=== PATIENT | male | born 1945 | race Caucasian/White ===

== ENCOUNTER → 2019-07-05 11:26 | Outpatient (CLI) | payer OTHER, SELFPAY ==
[2019-07-05 12:00] LABS: INR 2.6 (0.9-1.3)
== END ==
PROVIDERS: PCP Student in an Organized Health Care Education/Training Program; Visit Provider Student in an Organized Health Care Education/Training Program
DX: I48.91 Unspecified atrial fibrillation (principal); Z51.81 Encounter for therapeutic drug level monitoring; Z79.01 Long term (current) use of anticoagulants
CPT/HCPCS: 36415; 85610

== ENCOUNTER 2019-07-08 10:13 | Day surgery (SDC) | payer OTHER, SELFPAY ==
[2019-07-08 12:02] VITALS: BP 160/90; PULSE 81; RESP 16; TEMP 36.5; O2SAT 96; BMI 22.7
[2019-07-08] MEDS: PROPARACAINE 0.5% OPHTH SOL 2 DROPS EYE-OP ×2 (12:18→12:45)
[2019-07-08] MEDS: CATARACT EYE COMPOUND (10 DROPS/SYRINGE) 3 DROPS EYE-OP ×2 (12:20→12:46)
--- NOTE | 2019-07-08 12:55 | PM.PREOP ---
Pre-operative Note Interval Note History & Physical reviewed/Exam performed by Physician: No Changes to H&P: No
--- NOTE | 2019-07-08 12:55 | PM.OP.1 ---
Operative Date/Time/Diagnoses Pre-op diagnosis: Nuclear cataract right eye Procedure & Clinicians Procedure: Cataract Surgery Same procedure as scheduled: Yes Surgeon: Rey Lua Anesthesia Type: MAC +/- and Sedation Operative Notes Procedure in detail: Patient brought to the operating suite. Tetracaine drops placed in the right eye. The marking instrument was used to sophie the vertical and horizontal meridians. Patient was prepped and draped in sterile manner. Wire lid speculum was placed in the eye. The marking instrument was used to sophie the 170 degree meridian. Betadine drops were placed on the eye. This was irrigated. Lidocaine jelly was placed on the eye. A paracentesis port was created with a side-port blade. 0.1 mL 1% preservative free lidocaine was injected into the anterior chamber. The anterior chamber was deepened with viscoelastic. 2.6 mm keratome was used to create a temporal clear corneal incision. Cystotome and Utrata forceps were used to create continuous tear capsulorrhexis. Balanced salt solution was used to hydro dissect the nucleus. The phacoemulsification handpiece was inserted and the nucleus was removed using the stop and chop technique. The nucleous was very dense. The irrigation aspiration handpiece was inserted and the remaining cortex was removed. Anterior chamber was deepened with viscoelastic. An Duncan FLD072 intraocular lens with a power of 20.5 was injected into the capsular bag. Irrigation aspiration handpiece was inserted and the remaining viscoelastic was removed. The lens was rotated to the 170 degree meridian. Incision was hydrated with balanced salt solution and found to be leak free with pressure with Weck-Priya sponges. 0.1 mL Vigamox injected anterior chamber. 0.3 mL Kenalog 10 mg was injected subconjunctivally. Lid speculum was removed. The patient left the operating room in excellent condition. Complications: none Post-operative Condition: stable Disposition: same day surgery
[2019-07-08] MEDS: PHENYLEPHRINE/LIDOCAINE VIAL (OR) 0.2 ML EYE-OP (13:13)
[2019-07-08] MEDS: MOXIFLOXACIN INJ 5 MG/ML VIAL EYE-OP (13:13)
[2019-07-08] MEDS: TRIAMCINOLONE 50 MG/5 ML VIAL INJ (13:14)
[2019-07-08] MEDS: CHONDROIDTIN/SOD HYALURONATE 1.05 ML SYRINGE INTRAOCULA (13:14)
[2019-07-08] MEDS: TETRACAINE 0.5% OPHTH DROPS 4 ML 2 DROPS EYE-OP (13:14)
[2019-07-08] MEDS: LIDOCAINE JELLY 2% 5 ML 1 APPLIC TOP (13:14)
[2019-07-08] MEDS: BALANCED SALT IRRIG SOLN NO.2 500 ML, EPINEPHrine 1 MG IRR (13:15)
[2019-07-08 13:30] VITALS: BP 151/104; PULSE 94; RESP 20; TEMP 36.6; O2SAT 99
--- NOTE | 2019-07-08 14:53 | SUR.PHASEII ---
Dr. Cook notified bp 151/104, ok for pt to discharge and take home bp meds per MD.
== END 2019-07-08 13:45 | disposition home or self-care (01) ==
LOC: OR 10:14
PROVIDERS: PCP Student in an Organized Health Care Education/Training Program; Visit Provider Ophthalmology
PROC: (CPT 66984; principal; 2019-07-08 13:15)
DX: H25.11 Age-related nuclear cataract, right eye (principal); J44.9 Chronic obstructive pulmonary disease, unspecified; I10 Essential (primary) hypertension
CPT/HCPCS: 66984; J0171; J2250; J3010; J3301; V2787

== ENCOUNTER 2019-07-28 09:59 | Emergency (ER) | payer OTHER, SELFPAY ==
[2019-07-28 10:06] VITALS: BP 159/132; PULSE 78; RESP 20; TEMP 37; O2SAT 97; BMI 23.3
--- NOTE | 2019-07-28 10:10 | DI.RAD.S_ITS ---
PROCEDURE: XR CHEST 2V INDICATIONS: shortness of breath TECHNIQUE: 2 views of the chest were acquired. COMPARISON: [facility], , CHEST 2 VIEW, 04/14/2016, 10:41. FINDINGS: Surgical changes and devices: None. Lungs and pleura: Lungs are hyperinflated in keeping with chronic obstructive physiology. No pleural effusions or pneumothorax. Scattered subsegmental atelectasis and/or scarring. No focal consolidation, however there are faint hazy opacities raise the possibility of pulmonary edema. Suspected Carolyne B-lines project in the right lung base Mediastinum: Mediastinal contours are normal. Heart size is normal. Bones and chest wall: No suspicious bony abnormalities. Soft tissues appear unremarkable. IMPRESSION: Scattered subsegmental atelectasis/scarring. No acute consolidation however increased diffuse hazy groundglass opacities suspicious for mild/developing pulmonary edema. Please correlate clinically. If there is persistent clinical diagnostic uncertainty, continued surveillance with short interval chest radiographs after treatment is recommended. Hyperinflated lungs in keeping with chronic obstructive physiology. Dictated by: Israel Fajardo M.D. on 07/28/2019 at 11:27 Approved by: Israel Fajardo M.D. on 07/28/2019 at 11:32
--- NOTE | 2019-07-28 10:25 | ED.SOB ---
HPI - SOB/Dyspnea General Chief Complaint: Shortness of Breath/Dyspnea Stated Complaint: SOB Time Seen by Provider: 07/28/19 10:10 Source: patient and family Mode of arrival: Wheelchair Limitations: no limitations History of Present Illness HPI Narrative: Patient is a 74-year-old male with history of COPD and atrial fibrillation who presents with increasing shortness of breath with exertion. It has been ongoing 3 or 4 days progressively getting worse. He denies any chest pain or cough. He denies any orthopnea he does have some lower extremity edema which he says is new. It also take some quite a while to recover after walking. MD Complaint: shortness of breath Consistency/Duration: constant Relieving factors: nothing Exacerbating factors: exertion Related Data Home Medications Medication Instructions Recorded Confirmed lisinopril 10 mg PO BID 07/28/19 07/28/19 metoprolol succinate 100 mg PO BID 07/28/19 07/28/19 warfarin 2.5 mg PO DAILY 07/28/19 07/28/19 Previous Rx's Medication Instructions Recorded albuterol sulfate 2 puff INHALATION Q6H PRN #8.5 gram 07/28/19 furosemide [Lasix] 20 mg PO QAM #3 tab 07/28/19 prednisone 40 mg PO DAILY #10 tab 07/28/19 Allergies Allergy/AdvReac Type Severity Reaction Status Date / Time No Known Drug Allergies Allergy Verified 07/08/19 11:56 Review of Systems Review of Systems Narrative: GENERAL: Denies chills, fatigue, malaise, fever, sweats, travel HEENT: Denies sinus pain, ear pain, sore throat, difficulty swallowing, neck pain RESPIRATORY: See HPI CARDIOVASCULAR: Denies chest pain, palpitations, orthopnea, edema GASTROINTESTINAL: Denies nausea, vomiting, abdominal pain, diarrhea, constipation, melena. : Denies dysuria, frequency, incontinence, hematuria, urinary retention, flank pain. MUSCULOSKELETAL: Denies weakness, joint pain, or bony pain SKIN: No rash, no erythema, no pruritus NEUROLOGIC: Denies weakness, dizziness, headache, numbness, change in speech, confusion PSYCHIATRIC: No concerning psychosocial issues. 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) Atrial fibrillation (04/24/16) Essential hypertension (11/01/17) Pure hypercholesterolemia (04/24/16) Systolic congestive heart failure (04/24/16) Social History household members: none Smoking Status: Former smoker Social History household members: none Smoking Status: Former smoker Exam Initial Vital Signs Initial Vital Signs: Vital Signs Temperature 98.6 F 07/28/19 10:06 Pulse Rate 78 07/28/19 10:06 Respiratory Rate 20 07/28/19 10:06 Blood Pressure 159/132 H 07/28/19 10:06 Pulse Oximetry 97 07/28/19 10:06 GENERAL: Alert male no acute distress HEENT: Head atraumatic,EOMI, pupils reactive, face symmetric, moist mucous membranes CARDIOVASCULAR: Regular rate and rhythm without murmurs, rubs or gallops. RESPIRATORY: Decreased breath sounds at bases wheezes rales or rhonchi speaks in full sentences no difficulty ABDOMEN: Soft, nontender. Normoactive bowel sounds all 4 quadrants. No guarding or rebound. EXTREMITIES: Normal range of motion, no clubbing or edema. Neurovascularly intact NEUROLOGICAL: Alert and oriented x4.Normal gait and speech. Cranial nerves II through XII grossly intact. SKIN: Warm, dry, no laceration, no petechiae, no rashes or lesions. Course Orders Ordered: ED Orders 07/28/19 10:04 EKG-12 Lead Stat 07/28/19 10:10 XR chest 2V Stat Measure peak expiratory flow ONCE RT Consult Eval and Treat Now 07/28/19 10:19 B Type Natriuretic Peptide Stat Complete Blood Count AUTO DIFF Stat Comprehensive Metabolic Panel Stat Lactate (Lactic Acid) Stat Partial Thromboplastin Time Stat Prothrombin Time INR Stat Troponin & CK Cardiac Panel Stat Discontinued Medications Albuterol (Ventolin) 2.5 mg INH NOW ONE Stop: 07/28/19 10:59 Last Admin: 07/28/19 11:08 Dose: 2.5 mg Documented by: AMBER Furosemide (Lasix) 40 mg IV NOW ONE Stop: 07/28/19 11:01 Last Admin: 07/28/19 11:22 Dose: 40 mg Documented by: AMBER Methylprednisolone (Solu-Medrol 125 Mg Vial) 125 mg IV NOW ONE Stop: 07/28/19 11:49 Last Admin: 07/28/19 12:16 Dose: 125 mg Documented by: AMBER Vital Signs Vital signs: Vital Signs - 8 hr 07/28/19 11:08 07/28/19 12:36 Pulse Rate 87 83 Respiratory Rate 22 16 Blood Pressure [Left Arm] 155/104 H Pulse Oximetry 99 100 MDM - SOB/Dyspnea Lab Data Attestation: I reviewed the patient's lab results. Result diagrams: 07/28/19 10:19 07/28/19 10:19 Labs: Lab Results 07/28/19 07/28/19 07/28/19 Range/Units 10: 10: 10:19 WBC 6.7 (4.5-11.0) X10^3/uL RBC 4.88 (4.5-5.9) X10^6/uL Hgb 14.9 (13.5-17.5) g/dL Hct 44.7 (41-53) % MCV 91.6 (80-100) fL MCH 30.6 (26-34) PG MCHC 33.4 (30-36) % RDW 14.0 (11.6-14.8) % Plt Count 213 (150-400) X10^3/uL Neut % (Auto) 70.3 (50-75) % Lymph % (Auto) 20.3 L (25-40) % Vilas % (Auto) 8.0 (3-14) % Eos % (Auto) 0.6 L (2-4) % Baso % (Auto) 0.8 (0-2) % Neut # (Auto) 4800 (2862-5349) /uL Lymph # (Auto) 1400 (5885-6078) /uL Vilas # (Auto) 500 (0-900) /uL Eos # (Auto) 0 (0-450) /uL Baso # (Auto) 100 (0-100) /uL PT (10.1-12.7) SECONDS INR (0.9-1.3) APTT (26.4-36.2) SECONDS Sodium 138 (137-145) mmol/L Potassium 4.2 (3.4-5.1) mmol/L Chloride 98 (98-107) mmol/L Carbon Dioxide 30 (22-32) mmol/L BUN 10 (9-20) mg/dL Creatinine 0.90 (0.66-1.25) mg/dL Estimated GFR > 60.0 (>60) mL/min BUN/Creatinine Ratio 11.1 (6-22) Glucose 107 (80-110) mg/dL Lactate 1.4 (0.7-2.1) mmol/L Calcium 9.3 (8.4-10.2) mg/dL Total Bilirubin 1.2 (0.2-1.3) mg/dL AST 56 (17-59) IU/L ALT 44 (21-72) IU/L Alkaline Phosphatase 88 (38-126) U/L Total Creatine Kinase (55-170) U/L CK-MB (CK-2) CK-MB (CK-2) Rel Index Troponin I (0.01-0.034) ng/mL B-Natriuretic Peptide (<100) Total Protein 7.1 (6.3-8.2) g/dL Albumin 4.3 (3.5-5.0) g/dL Globulin 2.8 (1.7-4.1) g/dL Albumin/Globulin Ratio 1.5 (1.0-2.8) 07/28/19 07/28/19 07/28/19 Range/Units 10:19 10:19 10:19 WBC (4.5-11.0) X10^3/uL RBC (4.5-5.9) X10^6/uL Hgb (13.5-17.5) g/dL Hct (41-53) % MCV (80-100) fL MCH (26-34) PG MCHC (30-36) % RDW (11.6-14.8) % Plt Count (150-400) X10^3/uL Neut % (Auto) (50-75) % Lymph % (Auto) (25-40) % Vilas % (Auto) (3-14) % Eos % (Auto) (2-4) % Baso % (Auto) (0-2) % Neut # (Auto) (9436-7799) /uL Lymph # (Auto) (2408-8721) /uL Vilas # (Auto) (0-900) /uL Eos # (Auto) (0-450) /uL Baso # (Auto) (0-100) /uL PT 39.5 H (10.1-12.7) SECONDS INR 3.4 H (0.9-1.3) APTT 49 H (26.4-36.2) SECONDS Sodium (137-145) mmol/L Potassium (3.4-5.1) mmol/L Chloride (98-107) mmol/L Carbon Dioxide (22-32) mmol/L BUN (9-20) mg/dL Creatinine (0.66-1.25) mg/dL Estimated GFR (>60) mL/min BUN/Creatinine Ratio (6-22) Glucose (80-110) mg/dL Lactate (0.7-2.1) mmol/L Calcium (8.4-10.2) mg/dL Total Bilirubin (0.2-1.3) mg/dL AST (17-59) IU/L ALT (21-72) IU/L Alkaline Phosphatase (38-126) U/L Total Creatine Kinase 79 (55-170) U/L CK-MB (CK-2) TNP CK-MB (CK-2) Rel Index TNP Troponin I < 0.012 (0.01-0.034) ng/mL B-Natriuretic Peptide 1230 H (<100) Total Protein (6.3-8.2) g/dL Albumin (3.5-5.0) g/dL Globulin (1.7-4.1) g/dL Albumin/Globulin Ratio (1.0-2.8) Imaging Data Chest x-ray: Radiologist's impression: PROCEDURE: XR CHEST 2V INDICATIONS: shortness of breath TECHNIQUE: 2 views of the chest were acquired. COMPARISON: [facility], CHEST 2 VIEW, 04/14/2016, 10:41. FINDINGS: Surgical changes and devices: None. Lungs and pleura: Lungs are hyperinflated in keeping with chronic obstructive physiology. No pleural effusions or pneumothorax. Scattered subsegmental atelectasis and/or scarring. No focal consolidation, however there are faint hazy opacities raise the possibility of pulmonary edema. Suspected Carolyne B-lines project in the right lung base Mediastinum: Mediastinal contours are normal. Heart size is normal. Bones and chest wall: No suspicious bony abnormalities. Soft tissues appear unremarkable. IMPRESSION: Scattered subsegmental atelectasis/scarring. No acute consolidation however increased diffuse hazy groundglass opacities suspicious for mild/developing pulmonary edema. Please correlate clinically. If there is persistent clinical diagnostic uncertainty, continued surveillance with short interval chest radiographs after treatment is recommended. Hyperinflated lungs in keeping with chronic obstructive physiology. Dictated by: Israel Fajardo M.D. on 07/28/2019 at 11:27 ECG Data Attestation: I personally reviewed and interpreted this ECG as follows: Prior ECG tracings: available for review Interpretation: Atrial fibrillation rate 84 similar to previous EKG MDM Narrative Medical decision making narrative: Patient denies any history of congestive heart failure however it is listed in his history. His BNP of 1200 no significant pulmonary edema on his x-ray. He actually felt much better after a DuoNeb. He was able walk to the restroom and back without any difficulty both he and daughter noted significant improvement. His O2 sat is within normal limits. He has urinated at least 3 times after the Lasix. At this time he has an appointment with his PCP later this week will treat him for both COPD and CHF as an outpatient. Given a few days of Lasix and a steroid burst. At this time he is afebrile no leukocytosis negative procalcitonin I do not believe him to need antibiotics at this time. INR is therapeutic and has 2 other reasons to be short of breath at this time I do not suspect any pulmonary embolism. Discharge Plan Departure Patient Disposition: Home Clinical Impression: COPD exacerbation CHF (congestive heart failure) Qualifiers: Heart failure type: unspecified Heart failure chronicity: acute Qualified Code(s): I50.9 - Heart failure, unspecified Discharge Date/Time: 07/28/19 12:37 Instructions: Chronic Obstructive Pulmonary Disease, Heart Failure Activity Restrictions/Additional Instructions: *You have been diagnosed with COPD exacerbation and CHF *What to do: Need to have echocardiogram this can be arranged with her PCP *Continue to take medications as directed--> SENT TO [facility] Prednisone 40 mg once a day for 5 days Lasix 20 mg once a day in the morning for 3 days Albuterol 1-2 puffs every 4 hours if needed for shortness of breath *Follow up with your primary care provider in 2-3 days *Return to ER if you should have increasing shortness of breath fever chest pain heart palpitations or any new, worsening or concerning symptoms Prescriptions: New furosemide [Lasix] 20 mg tablet 20 mg PO QAM Qty: 3 RF: 0 prednisone 20 mg tablet 40 mg PO DAILY Qty: 10 RF: 0 albuterol sulfate 90 mcg/actuation HFA aerosol inhaler 2 puff INHALATION Q6H PRN (Reason: shortness of breath or wheezing) Qty: 8.5 RF: 0 No Action metoprolol succinate 100 mg tablet extended release 24 hr 100 mg PO BID RF: 0 lisinopril 10 mg tablet 10 mg PO BID RF: 0 warfarin 5 mg tablet 2.5 mg PO DAILY RF: 0 Referrals: Roly Millan MD [Primary Care Provider] -
--- NOTE | 2019-07-28 10:26 | PC.NURSE ---
pt arrived to ED with daughter in WC, reports increased SOB x 3-4 days. h/o COPD and Afib takes warfarin. has some new onset BL LE edema 1+ nonpitting. uncomfortable lying supine. L lung diminished, R with soft wheeze and possible fine crackles at the base. denies cough, denies CP. placed on diagnostic cardiac sonographer, afib 70's, IV placed and labs drawn including lactate. pt taken for CXR.
[2019-07-28 10:30] LABS: Add Manual Diff / Slide Review NO; Basophils Absolute Auto 100 /uL (0-100); Basophils Percent Auto 0.8 % (0-2); Eosinophils Absolute Auto 0 /uL (0-450); Eosinophils Percent Auto 0.6 % (2-4); Hematocrit 44.7 % (41-53); Hemoglobin 14.9 g/dL (13.5-17.5); Lymphocytes Absolute Auto 1400 /uL (1100-4500); Lymphocytes Percent Auto 20.3 % (25-40); Mean Corpuscular HGB Conc 33.4 % (30-36); Mean Corpuscular Hemoglobin 30.6 PG (26-34); Mean Corpuscular Volume 91.6 fL (80-100); Monocytes Absolute Auto 500 /uL (0-900); Neutrophils Absolute Auto 4800 /uL (1500-7000); Neutrophils Percent Auto 70.3 % (50-75); Platelet Count 213 X10^3/uL (150-400); Red Blood Cell Count 4.88 X10^6/uL (4.5-5.9); White Blood Cell Count 6.7 X10^3/uL (4.5-11.0)
[2019-07-28 10:39] LABS: INR 3.4 (0.9-1.3); Prothrombin Time 39.5 SECONDS (10.1-12.7)
[2019-07-28 10:40] VITALS: BP 156/94; PULSE 77; RESP 16; O2SAT 97
[2019-07-28 10:40] LABS: Lactate (Lactic Acid) 1.4 mmol/L (0.7-2.1)
[2019-07-28 10:41] LABS: PTT Partial Thromboplastin Tim 49 SECONDS (26.4-36.2)
[2019-07-28 10:43] LABS: Alanine Aminotransferase 44 IU/L (21-72); Albumin 4.3 g/dL (3.5-5.0); Albumin Globulin Ratio 1.5 (1.0-2.8); Alkaline Phosphatase 88 U/L (38-126); Aspartate Aminotransferase 56 IU/L (17-59); BUN Creatinine Ratio 11.1 (6-22); Bilirubin Total 1.2 mg/dL (0.2-1.3); Blood Urea Nitrogen 10 mg/dL (9-20); Calcium 9.3 mg/dL (8.4-10.2); Carbon Dioxide 30 mmol/L (22-32); Chloride 98 mmol/L (98-107); Creatine Kinase 79 U/L (55-170); Estimated Glomerular Filt Rate > 60.0 mL/min (>60); Globulin 2.8 g/dL (1.7-4.1); Glucose 107 mg/dL (80-110); HEMOLYSIS 28 (0-50); Potassium 4.2 mmol/L (3.4-5.1); Sodium 138 mmol/L (137-145); Total Protein 7.1 g/dL (6.3-8.2)
--- NOTE | 2019-07-28 10:44 | PC.NURSE ---
Pt AAOx3 at this time and appears back to baseline. concerned and does not want pt to be discharged. Dr Tierney spoke at length with pt and family about plan of care. pt's requesting to be transferred to [facility]. reports she is uncomfortable bringing pt home to [facility] where he would need to be medivac'd off if this situation was to happen again.
[2019-07-28 10:55] LABS: B Type Natriuretic Peptide 1230 (<100); Troponin I < 0.012 ng/mL (0.01-0.034)
[2019-07-28 11:08] VITALS: PULSE 87; RESP 22; O2SAT 99
[2019-07-28] MEDS: ALBUTEROL 2.5 MG/3 ML NEB (ADULT) INH (11:08)
[2019-07-28] MEDS: FUROSEMIDE 40 MG/4 ML VIAL IV (11:22)
--- NOTE | 2019-07-28 11:46 | PC.NURSE ---
Lasix given, pt OOB to BR multiple times with steady gait.
[2019-07-28] MEDS: methylPREDNISolone 125 MG/2 ML VIAL IV (12:16)
[2019-07-28 12:36] VITALS: BP 155/104; PULSE 83; RESP 16; O2SAT 100
== END 2019-07-28 12:37 | disposition home or self-care (01) ==
PROVIDERS: Emergency Provider Emergency Medicine; PCP Student in an Organized Health Care Education/Training Program
DX: J44.1 Chronic obstructive pulmonary disease with (acute) exacerbation (principal); I50.9 Heart failure, unspecified
CPT/HCPCS: 36415; 71046; 80053; 82550; 83605; 83880; 84484; 85025; 85610; 85730; 93005; 94150; 94640; 96374; 96375; 99282; 99285; J1940; J2930; J7613

== ENCOUNTER → 2019-08-07 10:57 | Outpatient (CLI) | payer OTHER, SELFPAY | PROVIDERS: PCP Student in an Organized Health Care Education/Training Program; Visit Provider Student in an Organized Health Care Education/Training Program ==

== ENCOUNTER → 2019-08-21 10:05 | Outpatient (CLI) | payer OTHER, SELFPAY ==
[2019-08-21 11:08] LABS: Cholesterol 255 mg/dL (140-199); HDL Cholesterol 67 mg/dL (40-60); LDL Cholesterol Calculated 167 mg/dL (<100); Triglycerides 103 mg/dL (35-150)
[2019-08-21 11:25] LABS: Vitamin D 25 Hydroxy (D3) 14.7 ng/mL (30.0-100.0)
== END ==
PROVIDERS: PCP Student in an Organized Health Care Education/Training Program; Visit Provider Student in an Organized Health Care Education/Training Program
DX: E78.00 Pure hypercholesterolemia, unspecified (principal); E55.9 Vitamin D deficiency, unspecified
CPT/HCPCS: 36415; 80061; 82306

== ENCOUNTER → 2019-08-25 15:13 | Outpatient (CLI) | payer OTHER, SELFPAY ==
--- NOTE | 2019-08-25 15:15 | DI.ECHO.S_ITS ---
[facility]---------+ [facility] +---------+ : : [address] : : : [place], [place] : : : : [id number] : : : : Phone: [phone] Echocardiogram Report + + :Name: MILTON ATKINS Study Date: 08/25/2019 Height: 66 in : :[facility] Weight: 143 lb : : Gender: Male BSA: 1.7 m2 : :: 1945 Age: 74 yrs BP: 152/92 mmHg: :Reason For Study: Congestive Heart Failure : : Performed By: Alexandra Schmidt : :Referring: JESSICA RANDLE : + + Interpretation Summary 1) Normal left ventricular size with mildly reduced systolic function (EF 45- 50%). 2) Grossly, normal right ventricular size with mildly reduced function. 3) The left atrium is severely dilated. The right atrium is moderately dilated. 4) Aortic valve is calcific with mild aortic stenosis visually. Mean gradient lower than expected at 2.6mmHg, which could be due to low flow state (stroke volume can't be calculated as pulse doppler across the LVOT was not done). 5) The right ventricular systolic pressure is estimated to be at least 45 mmHg based on an estimated right atrial pressure of 3 mm Hg. 6) Hypertension present during the study (BP 152/92mmHg). 7) No prior Echo available for comparison. Procedure: A two-dimensional transthoracic echocardiogram with color flow and Doppler was performed. The study quality was technically adequate. There is no prior echocardiogram noted for this patient. The heart rate ranged between 81-92 bpm during the study. Left Ventricle: The left ventricle is normal in size. There is normal left ventricular wall thickness. The ejection fraction is estimated to be 45-50%. Left ventricular systolic function is mildly reduced. Right Ventricle: The right ventricle is normal size. Right ventricular systolic function is mildly reduced. Atria: The left atrium is severely dilated. The right atrium is moderately dilated. The interatrial septum is intact with no evidence for an atrial septal defect. Mitral Valve: The mitral valve leaflets appear borderline thickened, but open well. There is mild mitral annular calcification. There is mild mitral regurgitation. Aortic Valve: The aortic valve is trileaflet. The aortic valve is moderately calcified. There is mild to moderately reduced leaflet mobility. The aortic valve area is 1.3 centimeters squared by planimetry. There is no aortic regurgitation. Tricuspid Valve: The tricuspid valve leaflets are thin and pliable. There is mild tricuspid regurgitation. The right ventricular systolic pressure is estimated to be at least 45 mmHg based on an estimated right atrial pressure of 3 mm Hg. Pulmonic Valve: The pulmonic valve is not well seen, but is grossly normal. There is mild pulmonic regurgitation. Great Vessels: The aortic root is normal size. The dimensions of the ascending aorta are normal. The aortic arch is normal in size. The IVC is of normal diameter and collapses greater than 50% with a sniff. This suggests a low right atrial pressure of 3 mm Hg. Pericardium/ Pleura There is no pericardial effusion. There is no pleural effusion. MMode/2D Measurements & Calculations LVIDd: 4.9 cm Ao root diam: 3.4 cm LVIDs: 3.6 cm Aortic Jxn: 2.5 cm FS: 26.5 % asc Aorta Diam: 3.3 cm EPSS: 0.97 cm Ao Arch Diam (Prox Trans): 3.0 cm IVSd: 0.87 cm LVPWd: 0.73 cm LV monsivais. diameter/BSA (cm/m^2): 2.8 LV sys. diameter/BSA (cm/m^2): 2.1 LA dimension: 4.5 cm RA long axis: 5.0 cm LA A2 area: 25.8 cm2 RA area: 20.9 cm2 LA A4 area: 27.3 cm2 RA vol: 73.8 ml LA length (vol): 5.9 cm RA : 42.5 ml/m2 LA vol: 102.1 ml IVC diam: 1.6 cm LA vol index: 58.9 ml/m2 RVDd major: 5.6 cm RVD1 (basal): 3.5 cm RVD2 (mid): 2.8 cm NILSON (plan): 1.3 cm2 Doppler Measurements & Calculations Ao V2 max: 118.4 cm/sec MV P1/2t: 54.9 msec Ao V2 mean: 74.9 cm/sec Ao max P.6 mmHg Ao mean P.6 mmHg Ao V2 VTI: 21.2 cm TR max marilyn: 322.4 cm/sec MV V2 mean: 52.9 cm/sec TR max P.6 mmHg MV mean P.6 mmHg PA V2 max: 47.3 cm/sec MV V2 VTI: 16.1 cm PA V2 mean: 32.6 cm/sec PA mean P.47 mmHg PA Accel Time: 0.17 sec MV P1/2t max marilyn: 113.0 cm/sec MVA(2t): 4.0 cm2 Reading Physician:05:24 PM
== END ==
PROVIDERS: PCP Student in an Organized Health Care Education/Training Program; Visit Provider Student in an Organized Health Care Education/Training Program
DX: I08.1 Rheumatic disorders of both mitral and tricuspid valves (principal); I50.9 Heart failure, unspecified
CPT/HCPCS: 93306

== ENCOUNTER → 2019-12-18 10:15 | Outpatient (CLI) | payer OTHER, SELFPAY ==
[2019-12-18 11:58] LABS: INR 2.6 (0.9-1.3); Prothrombin Time 29.9 SECONDS (10.1-12.7)
[2019-12-18 12:32] LABS: Cholesterol 203 mg/dL (140-199); HDL Cholesterol 54 mg/dL (40-60); LDL Cholesterol Calculated 113 mg/dL (<100); Triglycerides 182 mg/dL (35-150)
[2019-12-18 15:01] LABS: Vitamin D 25 Hydroxy (D3) 32.3 ng/mL (30.0-100.0)
== END ==
PROVIDERS: PCP Student in an Organized Health Care Education/Training Program; Referring Provider Student in an Organized Health Care Education/Training Program; Visit Provider Student in an Organized Health Care Education/Training Program
DX: E55.9 Vitamin D deficiency, unspecified (principal); E78.00 Pure hypercholesterolemia, unspecified; I48.91 Unspecified atrial fibrillation
CPT/HCPCS: 36415; 80061; 82306; 85610

== ENCOUNTER → 2020-02-18 09:49 | Outpatient (CLI) | payer OTHER, SELFPAY ==
[2020-02-18 12:12] LABS: INR 8.4 (0.9-1.3)
== END ==
PROVIDERS: PCP Student in an Organized Health Care Education/Training Program; Referring Provider Student in an Organized Health Care Education/Training Program; Visit Provider Student in an Organized Health Care Education/Training Program
DX: I48.91 Unspecified atrial fibrillation (principal)
CPT/HCPCS: 36415; 85610

== ENCOUNTER → 2020-07-22 12:20 | Outpatient (CLI) | payer OTHER, SELFPAY ==
[2020-07-22 13:57] LABS: INR 1.4 (0.9-1.3); Prothrombin Time 16.1 SECONDS (10.1-12.7)
[2020-07-22 14:16] LABS: BUN Creatinine Ratio 12.4 (6-22); Blood Urea Nitrogen 13 mg/dL (9-20); Calcium 9.7 mg/dL (8.4-10.2); Carbon Dioxide 33 mmol/L (22-32); Chloride 97 mmol/L (98-107); Estimated Glomerular Filt Rate > 60.0 mL/min (>60); Glucose 84 mg/dL (80-110); HEMOLYSIS < 15 (0-50); Potassium 4.9 mmol/L (3.4-5.1); Sodium 138 mmol/L (137-145)
== END ==
PROVIDERS: PCP Student in an Organized Health Care Education/Training Program; Referring Provider Student in an Organized Health Care Education/Training Program; Visit Provider Student in an Organized Health Care Education/Training Program
DX: I10 Essential (primary) hypertension (principal); I48.91 Unspecified atrial fibrillation
CPT/HCPCS: 36415; 80048; 85610

== ENCOUNTER → 2020-11-23 10:00 | Outpatient (CLI) | payer MEDICARE, SELFPAY ==
[2020-11-23] MEDS: COVID-19 VACC #1, MRNA(MOD) 100 MCG/0.5 ML VIAL IM (10:11)
== END ==
PROVIDERS: PCP Student in an Organized Health Care Education/Training Program; Visit Provider Internal Medicine
DX: Z23 Encounter for immunization (principal)
CPT/HCPCS: 0011A; 91301

== ENCOUNTER → 2020-12-21 09:53 | Outpatient (CLI) | payer MEDICARE, SELFPAY ==
[2020-12-21] MEDS: COVID-19 VACC #2, MRNA(MOD) 100 MCG/0.5 ML VIAL IM (10:00)
== END ==
PROVIDERS: PCP Student in an Organized Health Care Education/Training Program; Visit Provider Internal Medicine
DX: Z23 Encounter for immunization (principal)
CPT/HCPCS: 0012A; 91301

== ENCOUNTER → 2021-01-10 17:28 | Outpatient (CLI) | payer OTHER, SELFPAY ==
--- NOTE | 2021-01-10 17:29 | DI.RAD.S_ITS ---
PROCEDURE: XR FOOT RT MIN 3V INDICATIONS: Foot injury. Suspected fx TECHNIQUE: 3 views of the foot were acquired. COMPARISON: None. FINDINGS: Bones: No acute fractures or dislocations. Old fracture at the base of the 5th proximal phalanx. Mild 5th metatarsophalangeal joint degeneration and multiple interphalangeal joint degeneration. No suspicious bony lesions. Soft tissues: No tibiotalar joint effusion. Achilles tendon appears normal. IMPRESSION: No acute fracture or dislocation. Dictated by: Daryl Perez M.D. on 01/11/2021 at 9:27 Approved by: Daryl Perez M.D. on 01/11/2021 at 9:30
== END ==
PROVIDERS: PCP Student in an Organized Health Care Education/Training Program; Referring Provider Student in an Organized Health Care Education/Training Program; Visit Provider Student in an Organized Health Care Education/Training Program
DX: S99.921A Unspecified injury of right foot, initial encounter (principal); X58.XXXA Exposure to other specified factors, initial encounter
CPT/HCPCS: 73630

== ENCOUNTER 2021-01-31 12:22 | Emergency (ER) | payer OTHER, SELFPAY ==
[2021-01-31] VITALS (9 sets, daily range): BP systolic 136–159; BP diastolic 85–114; PULSE 112–139; RESP 20–27; TEMP 36.4; O2SAT 92–96; BMI 23.9
--- NOTE | 2021-01-31 12:25 | DI.RAD.S_ITS ---
PROCEDURE: XR CHEST 1V INDICATIONS: dyspnea TECHNIQUE: One view of the chest was acquired. COMPARISON: [facility], , XR CHEST 2V, 07/28/2019, 10:20. [facility], , CHEST 2 VIEW, 04/14/2016, 10:41. FINDINGS: Surgical changes and devices: None. Lungs and pleura: Hyperinflation consistent with COPD. There is infiltrate in the right perihilar area. Linear densities in the left midlung zone is likely scars and atelectasis. No pleural effusions or pneumothorax. Mediastinum: Mediastinal contours appear normal. Heart size is normal. Bones and chest wall: No suspicious bony lesions. Overlying soft tissues appear unremarkable. IMPRESSION: 1. Infiltrate in the right perihilar area, suspicious for developing pneumonia. 2. Scars and atelectasis in the left midlung zone. 3. COPD. Dictated by: Daryl Perez M.D. on 01/31/2021 at 13:04 Approved by: Daryl Perez M.D. on 01/31/2021 at 13:06
[2021-01-31 12:42] LABS: Add Manual Diff / Slide Review NO; Basophils Absolute Auto 100 /uL (0-100); Basophils Percent Auto 0.8 % (0-2); Eosinophils Absolute Auto 0 /uL (0-450); Eosinophils Percent Auto 0.4 % (2-4); Hematocrit 41.1 % (41-53); Hemoglobin 13.4 g/dL (13.5-17.5); Lymphocytes Absolute Auto 1300 /uL (1100-4500); Lymphocytes Percent Auto 15.8 % (25-40); Mean Corpuscular HGB Conc 32.6 % (30-36); Mean Corpuscular Volume 89.2 fL (80-100); Monocytes Absolute Auto 600 /uL (0-900); Monocytes Percent Auto 7.4 % (3-14); Neutrophils Absolute Auto 6000 /uL (1500-7000); Neutrophils Percent Auto 75.6 % (50-75); Platelet Count 238 X10^3/uL (150-400); Red Blood Cell Count 4.61 X10^6/uL (4.5-5.9); Red Cell Distribution Width 14.9 % (11.6-14.8); White Blood Cell Count 7.9 X10^3/uL (4.5-11.0)
[2021-01-31 12:53] LABS: Alanine Aminotransferase 22 IU/L (<50); Albumin 4.3 g/dL (3.5-5.0); Albumin Globulin Ratio 1.4 (1.0-2.8); Alkaline Phosphatase 117 U/L (38-126); Aspartate Aminotransferase 34 IU/L (17-59); BUN Creatinine Ratio 8.2 (6-22); Bilirubin Total 2.2 mg/dL (0.2-1.3); Blood Urea Nitrogen 9 mg/dL (9-20); Calcium 9.2 mg/dL (8.4-10.2); Carbon Dioxide 31 mmol/L (22-32); Chloride 96 mmol/L (98-107); Estimated Glomerular Filt Rate > 60.0 mL/min (>60); Globulin 3.1 g/dL (1.7-4.1); Glucose 115 mg/dL (80-110); HEMOLYSIS < 15 (0-50); Magnesium 1.4 mg/dL (1.6-2.3); Potassium 3.4 mmol/L (3.4-5.1); Sodium 137 mmol/L (137-145); Total Protein 7.4 g/dL (6.3-8.2)
[2021-01-31 13:05] LABS: NT-proBNP (BNP-Adult 18+) 5690 pg/mL (<450); Troponin I 0.015 ng/mL (0.01-0.034)
--- NOTE | 2021-01-31 13:12 | ED_ITS ---
HPI - General Adult General Chief complaint: Shortness of Breath/Dyspnea Stated complaint: sob/abnormal ekg Time Seen by Provider: 01/31/21 12:24 Source: patient Mode of arrival: Wheelchair Limitations: no limitations History of Present Illness HPI narrative: 75-year-old gentleman with a history of atrial fibrillation anticoagulated on warfarin and rate controlled with metoprolol, hypertension, congestive heart failure, hyperlipidemia presents after being seen in the INR clinic today with concerns for exertional dyspnea. His INR today was 6.1. He notes that over the last 1-2 weeks he has been having slight increase in exertional dyspnea when going from complete rest to full activity but it was not anything that particularly concerned him. He is not complaining of orthopnea, lower extremity edema, cough, fevers, general malaise, abdominal pain, dysuria or flank pain and has no headaches or acute neurologic symptoms. Related Data Previous Rx's Medication Instructions Recorded furosemide 20 mg tablet 20 mg PO QAM PRN #30 tab 07/31/19 lisinopril 10 mg tablet 10 mg PO BID #180 tab 02/06/20 metoprolol succinate 25 mg 100 mg PO BID #240 tab 10/06/20 tablet,extended release 24 hr atorvastatin 80 mg tablet 80 mg PO BEDTIME #90 tab 12/29/20 warfarin 1 mg tablet 1 mg PO .COMPLEX #90 tab 01/11/21 Allergies Allergy/AdvReac Type Severity Reaction Status Date / Time No Known Drug Allergies Allergy Verified 01/31/21 12:29 Review of Systems Review of Systems Narrative: Remainder of review of systems including constitutional, ENT, cardiovascular, respiratory, GI, , musculoskeletal, skin, neurologic and psychiatric systems reviewed and are unremarkable except as noted in HPI. Patient History Medical History Arterial embolism of left leg Atrial fibrillation (04/24/16) Essential hypertension (11/01/17) Pure hypercholesterolemia (04/24/16) Shortness of breath on exertion Systolic congestive heart failure (04/24/16) Social History household members: none Smoking Status: Former smoker Smoking Status: Former smoker alcohol intake frequency: 0-2 drinks per day Substance Use Type: does not use Exam Narrative Exam Narrative: General: Healthy appearing, in no acute distress. Able to give a complete and coherent history, speaking in full sentences. Well-nourished well-developed HEENT: Moist mucous membranes, normal sclera with reactive pupils, Neck: + JVD, supple Respiratory: Lungs are clear to auscultation, no wheezing no rales no rhonchi. Full and symmetrical air movement Cardiac: Tachycardic and irregular with no murmurs no bruits Abdomen: Soft, nontender, good bowel tones, no flank pain Skin: Warm and dry, no rashes Neurologic: Grossly neurologically intact with no obvious asymmetries or abnormalities Extremities: No trauma, well perfused Psych: Cooperative, appropriate insight and affect Initial Vital Signs Initial Vital Signs: Vital Signs Temperature 97.6 F 01/31/21 12:27 Pulse Rate 132 H 01/31/21 12:27 Respiratory Rate 27 H 01/31/21 12:27 Blood Pressure 136/85 01/31/21 12:27 Pulse Oximetry 95 01/31/21 12:27 Course Orders Ordered: ED Orders 01/31/21 12:25 XR chest 1V Stat EKG-12 Lead Stat 01/31/21 12:33 Complete Blood Count AUTO DIFF Stat Comprehensive Metabolic Panel Stat Magnesium Stat NT-proBNP (BNP-Adult 18+) Stat Troponin I Stat Discontinued Medications Furosemide (Furosemide 40 Mg/4 Ml Vial) 40 mg IV NOW ONE Stop: 01/31/21 13:14 Last Admin: 01/31/21 13:20 Dose: 40 mg Documented by: Vital Signs Vital signs: Vital Signs - 8 hr 01/31/21 12:27 01/31/21 12:39 01/31/21 12:59 Temperature 97.6 F Pulse Rate 132 H 120 H 121 H Respiratory Rate 27 H 23 24 Blood Pressure 136/85 Pulse Oximetry 95 96 94 01/31/21 13:00 01/31/21 13:30 01/31/21 13:36 Temperature Pulse Rate 112 H 139 H 133 H Respiratory Rate 20 23 23 Blood Pressure 146/105 H 149/113 H 159/94 H Pulse Oximetry 94 95 95 01/31/21 14:00 01/31/21 14:01 01/31/21 14:20 Temperature Pulse Rate 115 H 122 H 112 H Respiratory Rate 24 24 Blood Pressure 159/114 H 152/95 H Pulse Oximetry 92 95 93 Medical Decision Making Medical Records Medical records reviewed: Yes I reviewed the patient's medical records. Lab Data Lab results reviewed: Yes I reviewed the patient's lab results. Result diagrams: 01/31/21 12:33 01/31/21 12:33 Labs: Lab Results 01/31/21 01/31/21 Range/Units 12:33 12:33 WBC 7.9 (4.5-11.0) X10^3/uL RBC 4.61 (4.5-5.9) X10^6/uL Hgb 13.4 L (13.5-17.5) g/dL Hct 41.1 (41-53) % MCV 89.2 (80-100) fL MCH 29.0 (26-34) PG MCHC 32.6 (30-36) % RDW 14.9 H (11.6-14.8) % Plt Count 238 (150-400) X10^3/uL Neut % (Auto) 75.6 H (50-75) % Lymph % (Auto) 15.8 L (25-40) % [place] % (Auto) 7.4 (3-14) % Eos % (Auto) 0.4 L (2-4) % Baso % (Auto) 0.8 (0-2) % Neut # (Auto) 6000 (4298-6657) /uL Lymph # (Auto) 1300 (4390-7361) /uL [place] # (Auto) 600 (0-900) /uL Eos # (Auto) 0 (0-450) /uL Baso # (Auto) 100 (0-100) /uL Sodium 137 (137-145) mmol/L Potassium 3.4 (3.4-5.1) mmol/L Chloride 96 L (98-107) mmol/L Carbon Dioxide 31 (22-32) mmol/L BUN 9 (9-20) mg/dL Creatinine 1.10 (0.66-1.25) mg/dL Estimated GFR > 60.0 (>60) mL/min BUN/Creatinine Ratio 8.2 (6-22) Glucose 115 H (80-110) mg/dL Calcium 9.2 (8.4-10.2) mg/dL Magnesium 1.4 L (1.6-2.3) mg/dL Total Bilirubin 2.2 H (0.2-1.3) mg/dL AST 34 (17-59) IU/L ALT 22 (<50) IU/L Alkaline Phosphatase 117 (38-126) U/L Troponin I 0.015 (0.01-0.034) ng/mL NT-Pro-B Natriuret Pep 5690 H (<450) pg/mL Total Protein 7.4 (6.3-8.2) g/dL Albumin 4.3 (3.5-5.0) g/dL Globulin 3.1 (1.7-4.1) g/dL Albumin/Globulin Ratio 1.4 (1.0-2.8) ECG Data Attestation: I personally reviewed and interpreted this ECG as follows: Interpretation: Atrial fibrillation with rapid ventricular response at a rate of 123 Occasional PVCs Pacemaker function: abnormal pacing function MDM Narrative Medical decision making narrative: 75-year-old gentleman with mild exertional dyspnea noted by nursing staff while he was having his INR checked. He is not particularly troubled by any of his symptoms. Workup today reveals atrial fibrillation with rapid ventricular response, mild congestive heart failure exacerbation likely due to the rapid ventricular response and elevated INR at 6.1 per outpatient clinic this morning. There does not appear to be any evidence of developing pneumonia and no evidence of acute coronary syndrome. He does have primary care follow-up. He has no interest in staying in the hospital at this time. Will ask him to increase his furosemide from 20 mg a day to 40 mg a day, increase his metoprolol from 100 mg twice a day to 100 mg 3 times a day and completely hold his warfarin for the time being. Will contact his primary care physician to review concerns as above and schedule follow-up for 24-48 hours. Discussed care with Dr. Markos Sparks on-call today for Dr. Lee. Follow-up appointment is Discharge Plan Departure Patient Disposition: Home Clinical Impression: Atrial fibrillation with rapid ventricular response, Elevated INR Congestive heart failure Qualifiers: Heart failure type: unspecified Heart failure chronicity: acute on chronic Qualified Code(s): I50.9 - Heart failure, unspecified Instructions: DI for Heart Failure, DI for Atrial Fibrillation Activity Restrictions/Additional Instructions: Thank you for letting us do a more thorough workup today It looks like your heart, the atrial fibrillation, is going a bit too fast. You currently are on metoprolol 100 mg twice a day to treat this. I am going to suggest that we increase that to metoprolol 100 mg 3 times a day for the next couple of days. Because your heart rate is going so fast fluid is collecting in your lungs, this is congestive heart failure. Am going to increase your furosemide from 20 mg a day up to 40 mg a day Your INR level today was 6.1. Please hold your warfarin until you talk to Dr. Lee You have an appointment TOMORROW 02/01 at 10:45 with . Please keep this appointment. Return to the ER if you are having any worsening symptoms. Prescriptions: No Action lisinopril 10 mg tablet 10 mg PO BID Qty: 180 RF: 1 metoprolol succinate 25 mg tablet extended release 24 hr 100 mg PO BID Qty: 240 RF: 2 atorvastatin 80 mg tablet 80 mg PO BEDTIME Qty: 90 RF: 1 warfarin 1 mg tablet 1 mg PO .COMPLEX Qty: 90 RF: 2 furosemide [Lasix] 20 mg tablet 20 mg PO QAM PRN (Reason: shortness of breath) Qty: 30 RF: 5 Referrals: Roly Millan MD [Primary Care Provider] -
[2021-01-31] MEDS: FUROSEMIDE 40 MG/4 ML VIAL IV (13:20)
== END 2021-01-31 14:35 | disposition home or self-care (01) ==
PROVIDERS: Emergency Provider Emergency Medicine; PCP Student in an Organized Health Care Education/Training Program
DX: I48.20 Chronic atrial fibrillation, unspecified (principal); I50.9 Heart failure, unspecified; Z79.01 Long term (current) use of anticoagulants
CPT/HCPCS: 36415; 71045; 80053; 83735; 83880; 84484; 85025; 93005; 96374; 99284; J1940

== ENCOUNTER → 2021-12-05 14:05 | Outpatient (CLI) | payer OTHER, SELFPAY ==
[2021-12-05 14:51] LABS: INR 2.6 (0.9-1.3); Prothrombin Time 29.9 SECONDS (10.1-12.7)
== END ==
PROVIDERS: PCP Student in an Organized Health Care Education/Training Program; Referring Provider Student in an Organized Health Care Education/Training Program; Visit Provider Student in an Organized Health Care Education/Training Program
DX: Z79.01 Long term (current) use of anticoagulants (principal)
CPT/HCPCS: 36415; 85610

== ENCOUNTER → 2022-06-21 13:50 | Outpatient (CLI) | payer OTHER, SELFPAY ==
[2022-06-21 15:06] LABS: INR 2.8 (0.9-1.3); Prothrombin Time 32.9 SECONDS (10.1-12.7)
[2022-06-21 15:18] LABS: Alanine Aminotransferase 25 IU/L (<50); Albumin 4.3 g/dL (3.5-5.0); Albumin Globulin Ratio 1.5 (1.0-2.8); Alkaline Phosphatase 176 U/L (38-126); Aspartate Aminotransferase 38 IU/L (17-59); BUN Creatinine Ratio 14.1 (6-22); Bilirubin Total 0.7 mg/dL (0.2-1.3); Blood Urea Nitrogen 14 mg/dL (9-20); Calcium 9.2 mg/dL (8.4-10.2); Carbon Dioxide 33 mmol/L (22-32); Chloride 96 mmol/L (98-107); Cholesterol 150 mg/dL (140-199); Estimated Glomerular Filt Rate > 60 mL/min (>60); Globulin 2.8 g/dL (1.7-4.1); Glucose 99 mg/dL (80-110); HDL Cholesterol 82 mg/dL (40-60); HEMOLYSIS < 15 (0-50); LDL Cholesterol Calculated 57 mg/dL (<100); Potassium 4.1 mmol/L (3.4-5.1); Sodium 137 mmol/L (137-145); Total Protein 7.1 g/dL (6.3-8.2); Triglycerides 55 mg/dL (35-150)
== END ==
PROVIDERS: PCP Student in an Organized Health Care Education/Training Program; Referring Provider Student in an Organized Health Care Education/Training Program; Visit Provider Student in an Organized Health Care Education/Training Program
DX: Z79.01 Long term (current) use of anticoagulants (principal); I10 Essential (primary) hypertension; E78.00 Pure hypercholesterolemia, unspecified; R79.89 Other specified abnormal findings of blood chemistry; Z79.899 Other long term (current) drug therapy
CPT/HCPCS: 36415; 80053; 80061; 85610

== ENCOUNTER → 2022-07-25 10:56 | Outpatient (CLI) | payer OTHER, SELFPAY ==
[2022-07-25 13:18] LABS: INR 3.4 (0.9-1.3); Prothrombin Time 39.7 SECONDS (10.1-12.7)
== END ==
PROVIDERS: PCP Student in an Organized Health Care Education/Training Program; Referring Provider Student in an Organized Health Care Education/Training Program; Visit Provider Student in an Organized Health Care Education/Training Program
DX: I48.0 Paroxysmal atrial fibrillation (principal); Z79.01 Long term (current) use of anticoagulants
CPT/HCPCS: 36415; 85610

== ENCOUNTER → 2022-08-23 10:16 | Outpatient (CLI) | payer OTHER, SELFPAY ==
[2022-08-23 12:26] LABS: Prothrombin Time 46.2 SECONDS (10.1-12.7)
== END ==
PROVIDERS: PCP Student in an Organized Health Care Education/Training Program; Referring Provider Student in an Organized Health Care Education/Training Program; Visit Provider Student in an Organized Health Care Education/Training Program
DX: Z79.01 Long term (current) use of anticoagulants (principal); I48.0 Paroxysmal atrial fibrillation
CPT/HCPCS: 36415; 85610

== ENCOUNTER → 2022-08-30 10:53 | Outpatient (CLI) | payer OTHER, SELFPAY ==
[2022-08-30 12:11] LABS: INR 1.9 (0.9-1.3); Prothrombin Time 22.5 SECONDS (10.1-12.7)
== END ==
PROVIDERS: PCP Student in an Organized Health Care Education/Training Program; Referring Provider Student in an Organized Health Care Education/Training Program; Visit Provider Student in an Organized Health Care Education/Training Program
DX: I48.0 Paroxysmal atrial fibrillation (principal); Z79.01 Long term (current) use of anticoagulants
CPT/HCPCS: 36415; 85610

== ENCOUNTER → 2022-09-07 09:59 | Outpatient (CLI) | payer OTHER, SELFPAY ==
[2022-09-07 13:33] LABS: INR 2.2 (0.9-1.3); Prothrombin Time 25.1 SECONDS (10.1-12.7)
== END ==
PROVIDERS: PCP Student in an Organized Health Care Education/Training Program; Referring Provider Student in an Organized Health Care Education/Training Program; Visit Provider Student in an Organized Health Care Education/Training Program
DX: I48.0 Paroxysmal atrial fibrillation (principal); Z79.01 Long term (current) use of anticoagulants
CPT/HCPCS: 36415; 85610

== ENCOUNTER 2022-10-30 18:27 | Inpatient (IN) | payer OTHER, SELFPAY ==
[2022-10-30] VITALS (27 sets, daily range): BP systolic 109–159; BP diastolic 73–116; PULSE 57–144; RESP 23–50; TEMP 36.4; O2SAT 84–99; BMI 20.9
--- NOTE | 2022-10-30 18:41 | DI.RAD.S_ITS ---
PROCEDURE: XR CHEST 1V INDICATIONS: Shortness of breath TECHNIQUE: One view of the chest was acquired. COMPARISON: [facility], CR, XR CHEST 1V, 01/31/2021, 12:48. FINDINGS: Surgical changes and devices: None. Lungs and pleura: Lungs are clear. No pleural effusions or pneumothorax. Mediastinum: Mediastinal contours appear normal. Heart size is normal. Bones and chest wall: No suspicious bony lesions. Overlying soft tissues appear unremarkable. IMPRESSION: No acute finding. Dictated by: Anant Diaz M.D. on 10/30/2022 at 19:44 Approved by: Anant Diaz M.D. on 10/30/2022 at 19:45
[2022-10-30] MEDS: ALBUTEROL/IPRATROPIUM 3 ML AMPUL INH (19:00)
[2022-10-30 19:13] LABS: Add Manual Diff / Slide Review NO; Basophils Absolute Auto 0 /uL (0-100); Basophils Percent Auto 0.4 % (0-2); Eosinophils Absolute Auto 0 /uL (0-450); Lymphocytes Absolute Auto 800 /uL (1100-4500); Lymphocytes Percent Auto 13.9 % (25-40); Mean Corpuscular HGB Conc 33.4 % (30-36); Mean Corpuscular Hemoglobin 30.8 PG (26-34); Mean Corpuscular Volume 92.2 fL (80-100); Monocytes Absolute Auto 600 /uL (0-900); Monocytes Percent Auto 10.9 % (3-14); Neutrophils Absolute Auto 4300 /uL (1500-7000); Neutrophils Percent Auto 74.8 % (50-75); Platelet Count 187 X10^3/uL (150-400); Red Blood Cell Count 4.88 X10^6/uL (4.5-5.9); Red Cell Distribution Width 14.4 % (11.6-14.8); White Blood Cell Count 5.8 X10^3/uL (4.5-11.0)
[2022-10-30 19:19] LABS: Prothrombin Time 46.4 SECONDS (10.1-12.7)
--- NOTE | 2022-10-30 19:20 | DI.CT.S_ITS ---
PROCEDURE: CT ANGIO CHEST PE PROTOCOL INDICATIONS: sob, x 2 days. TECHNIQUE: After the administration of intravenous contrast, 2 mm thick sections acquired from the pulmonary apices to the posterior costophrenic angles. 3-dimensional maximum intensity projection (MIP) coronal and sagittal reformats were then acquired through the thorax. For radiation dose reduction, the following was used: automated exposure control, adjustment of mA and/or kV according to patient size. COMPARISON: [facility], CR, XR CHEST 1V, 10/30/2022, 19:19. FINDINGS: Image quality: Excellent. Pulmonary arteries: Pulmonary arteries demonstrate no intraluminal filling defects to suggest central pulmonary embolism. There is enlargement of the pulmonary arteries, with the main pulmonary artery measuring up to 3.2 cm suggestive of pulmonary arterial hypertension. Lower Neck: No lymphadenopathy by size criteria. Thyroid: Visualized thyroid demonstrates no discrete nodules. Axillae: No lymphadenopathy by size criteria. Chest Wall: Unremarkable. Bones: Visualized osseous structures demonstrate no suspicious lesions. Lungs and Airways: No acute consolidation. There are small clustered indistinct ground-glass nodules with a centrilobular distribution demonstrated within all lobes but with a predominance in the right lung base. Mild centrilobular emphysematous changes are present. Mild linear atelectasis also demonstrated in the left lingula. The trachea and central airways are patent. Pleura: No pneumothorax or pleural effusions. Heart: Heart size is enlarged. No pericardial effusion. Thoracic Vessels: The thoracic aorta is normal in size. Mediastinum and Gia: No lymphadenopathy by size criteria. Esophagus: No wall thickening. No hiatal hernia. Abdomen: Visualized upper abdomen demonstrates nonspecific perinephric stranding bilaterally. The visualized liver demonstrates a nodular hepatic contour suggestive of cirrhosis. IMPRESSION: 1. No evidence of pulmonary embolism. 2. Small clustered indistinct ground-glass nodules with a centrilobular distribution demonstrated bilaterally but with a predominance in the right lung base. The findings are consistent with an infectious or inflammatory process such as atypical pneumonia or sequelae of aspiration. Dictated by: Sidney Carpio M.D. on 10/30/2022 at 21:58 Approved by: Sidney Carpio M.D. on 10/30/2022 at 22:03
--- NOTE | 2022-10-30 19:21 | ED.SOB ---
HPI - SOB/Dyspnea General Chief Complaint: Shortness of Breath/Dyspnea Stated Complaint: SOB, breathing difficulties Time Seen by Provider: 10/30/22 19:20 Source: patient Mode of arrival: Ambulatory Limitations: no limitations History of Present Illness HPI Narrative: This is a 77-year-old male with history of blood clots on Coumadin, hypertension, dyslipidemia and atrial fibrillation and emphysema. Patient states he started feeling short of breath about 2 days ago. He denies fevers or chills. No nasal congestion. He starts no chest pain or pressure but he feels short of breath. He denies nausea or vomiting. He denies any new swelling in his extremities. He denies any diarrhea constipation. He has not had any cough or productive sputum. Patient states he does not normally get short of breath like this. He has had inhalers prescribed in the past just in case but does not normally use any. He does not take any oxygen normally. Patient states that he did have surgery on his bilateral legs to clean out blood clots he is unsure if they were arterial or venous but he was told he was johanne they did not go upwards. Patient denies any other surgeries he denies cardiac interventions, cardiac catheterization, CABG or ablation. He smoked for about 30 years. He drinks about 3 alcoholic beers nightly, denies illicit or THC. Dr. Millan is his primary care. He swallows with Cardiology from [facility] but does not remember the name. Patient did take 1 dose of nitro today to see if it would be helpful he states it was not. Related Data Previous Rx's Medication Instructions Recorded warfarin 1 mg tablet 2 mg PO DAILY #230 tabs 01/31/22 atorvastatin 80 mg tablet 80 mg PO BEDTIME #90 tabs 06/21/22 furosemide 20 mg tablet 20 mg PO BID #180 tabs 06/21/22 metoprolol succinate 50 mg 50 mg PO BID #180 tabs 06/21/22 tablet,extended release 24 hr potassium chloride 10 mEq 10 meq PO BID #180 tabs 06/21/22 tablet,extended release lisinopril 10 mg tablet 10 mg PO BID #180 tabs 07/25/22 Allergies Allergy/AdvReac Type Severity Reaction Status Date / Time No Known Drug Allergies Allergy Verified 10/30/22 18:39 Review of Systems Review of Systems ROS Unobtainable: All systems reviewed & are unremarkable except as noted in HPI and below Patient History Medical History Arterial embolism of left leg Atrial fibrillation (04/24/16) COPD (chronic obstructive pulmonary disease) Essential hypertension (11/01/17) Gout Peripheral neuropathy Peripheral vascular disease Pure hypercholesterolemia (04/24/16) Retinal detachment Systolic congestive heart failure (04/24/16) Surgical History Anesthesia History of cataract removal with insertion of prosthetic lens History of eye surgery History of surgery Family History Father History of heart disease Sister Cancer Social History household members: none Smoking Status: Former smoker Smoking Status: Former smoker alcohol intake frequency: 0-2 drinks per day Substance Use Type: does not use Exam Narrative Exam Narrative: GEN: Thin elderly male with barrel chest, alert and oriented x 3, patient appears to be in moderate distress. HEENT: Atraumatic, pupils are equal round reactive to light, extraocular movements are intact, nares are clear, there is no conjunctival pallor. Throat is clear without any exudates, erythema, tonsillar enlargement or uvular deviation HEART: Tachycardic irregularly Regular rate and rhythm without murmur, clicks, rubs. Pulses are equal in upper and lower extremities. No swelling bilateral lower extremities. LUNGS:Lungs have bilateral wheezes upper and lower expiratory wheezes, rales, crackles, chest moves symmetrically, tachypnea speaks in 3-4 word sentences. ABD:bowel sounds normal, soft, non-tender, no guarding, rebound, rigidity, no masses noted, no hepatosplenomegaly :No CVA tenderness MSCL: Non-tender, no muscle atrophy, muscles strength 5/5 upper and lower extremities, full range of motion, normal gait NEURO:CN 2-12 intact, sensation normal SKIN: No rash, erythema or other skin changes. Initial Vital Signs Initial Vital Signs: Vital Signs Temperature 97.6 F 10/30/22 18:42 Pulse Rate 112 H 10/30/22 18:42 Respiratory Rate 32 H 10/30/22 18:42 Blood Pressure 144/87 H 10/30/22 18:42 Pulse Oximetry 84 L 10/30/22 18:42 Oxygen Delivery Method 10/30/22 18:42 Scores PERC Score Age greater than or equal to 50 years: Yes Heart rate greater than or equal to 100 bpm: Yes Room Air O2 Sat less than 95%: Yes Unilateral leg swelling: No Recent trauma or surgery: No Hemoptysis: No Prior PE or DVT: Yes Hormone Use: No Total PERC Score: 4 Course Orders Ordered: ED Orders 10/31/22 05:55 Basic Metabolic Panel Routine Complete Blood Count AUTO DIFF Routine Magnesium Routine 10/31/22 06:05 Prothrombin Time INR Routine Troponin I Routine Albuterol (Albuterol 2.5 Mg/3 Ml Neb (Adult)) 2.5 mg INH [id number] PRN PRN Reason: Shortness Of Breath Albuterol/Ipratropium (Albuterol/Ipratropium 3 Ml Ampul) 3 ml INH [id number] [facility] Aspirin (Aspirin Ec 81 Mg Tablet) 81 mg PO DAILY [facility] Atorvastatin Calcium (Atorvastatin 20 Mg Tablet) 40 mg PO BEDTIME [facility] Folic Acid (Folic Acid 1 Mg Tablet) 1 mg PO DAILY [facility] Azithromycin 500 mg/ Dextrose 250 mls @ 250 mls/hr IV Q24H [facility] Last Admin: 10/31/22 06:25 Dose: 250 mls/hr Documented By: MALDONADO Thiamine HCl 500 mg/ Sodium (Chloride) 105 mls @ 420 mls/hr IV TID [facility] Last Admin: 10/31/22 06:26 Dose: 420 mls/hr Documented By: MALDONADO Lorazepam (Lorazepam 2 Mg/Ml Inj) 0 mg IV CIWAPRN PRN; Protocol PRN Reason: Alcohol Withdrawal Lorazepam (Lorazepam 1 Mg Tablet) 0 mg PO CIWAPRN PRN; Protocol PRN Reason: Alcohol Withdrawal Methylprednisolone (Methylprednisolone 125 Mg/2 Ml Vial) 60 mg IV Q12H [facility] Metoprolol Succinate (Metoprolol Er 50 Mg Tablet) 50 mg PO BID [facility] Multivitamins (Multivitamin 1 Tablet) 1 tab PO DAILY [facility] Naloxone HCl (Naloxone 0.4 Mg/Ml Vial) 0.2 mg IV Q2MIN PRN PRN Reason: Opiate Reversal Warfarin Sodium (Warfarin 1 Mg Tablet) 2 mg PO DAILY@1700 [facility] Discontinued Medications Albuterol (Albuterol 2.5 Mg/3 Ml Neb (Adult)) 20 mg INH NOW ONE Stop: 10/30/22 19:21 Last Admin: 10/30/22 19:31 Dose: 20 mg Documented By: DANAY Albuterol/Ipratropium (Albuterol/Ipratropium 3 Ml Ampul) 3 ml INH NOW ONE Stop: 10/30/22 18:59 Last Admin: 10/30/22 19:00 Dose: 3 ml Documented By: DANYA Albuterol/Ipratropium (Albuterol/Ipratropium 3 Ml Ampul) 3 ml INH NOW ONE Stop: 10/30/22 19:15 Aspirin (Aspirin 81 Mg Chew Tab) 324 mg PO NOW ONE Stop: 10/30/22 20:50 Last Admin: 10/30/22 21:36 Dose: 324 mg Documented By: NADINE Lorazepam (Lorazepam 0.5 Mg Tablet) 0.5 mg PO NOW ONE Stop: 10/30/22 20:04 Last Admin: 10/30/22 20:08 Dose: 0.5 mg Documented By: NADINE Methylprednisolone (Methylprednisolone 125 Mg/2 Ml Vial) 125 mg IV NOW ONE Stop: 10/30/22 19:21 Last Admin: 10/30/22 19:39 Dose: 125 mg Documented By: NADINE Metoprolol Tartrate (Metoprolol Tartrate 5 Mg/5 Ml Inj) 5 mg IV Q5M FRANKO Stop: 10/30/22 22:41 Last Admin: 10/30/22 22:38 Dose: 5 mg Documented By: Admin: 10/30/22 22:33 Dose: 5 mg Documented By: Admin: 10/30/22 22:28 Dose: 5 mg Documented By: NADINE Reevaluation(s) Reevaluation #1: Patient leaves the resolved with albuterol but patient has significant anxiety resuming large O2 albuterol and tachycardia. This was stopped. Time: 20:21 Reevaluation #2: Reviewed patients findings. and need to not return home. Time: 21:30 Vital Signs Vital signs: Vital Signs - 8 hr 10/30/22 18:42 10/30/22 19:00 10/30/22 18:51 Temperature 97.6 F Pulse Rate 112 H 95 H Respiratory Rate 32 H 32 H Blood Pressure 144/87 H Pulse Oximetry 84 L 90 L 91 Oxygen Delivery Method Room Air Oxygen Flow Rate 2 Fraction of Inspired Oxygen 28 10/30/22 18:55 10/30/22 18:55 10/30/22 19:00 Temperature Pulse Rate 112 H Respiratory Rate 31 H Blood Pressure 159/95 H 146/86 H Pulse Oximetry 99 Oxygen Delivery Method Oxygen Flow Rate Fraction of Inspired Oxygen 10/30/22 19:00 10/30/22 19:15 10/30/22 19:15 Temperature Pulse Rate 114 H 116 H Respiratory Rate 36 H 33 H Blood Pressure 142/103 H Pulse Oximetry 98 95 Oxygen Delivery Method Nasal Cannula Oxygen Flow Rate 1 Fraction of Inspired Oxygen 10/30/22 19:30 10/30/22 19:30 10/30/22 19:31 Temperature Pulse Rate 113 H 104 H Respiratory Rate 35 H 24 Blood Pressure 152/84 H Pulse Oximetry 95 95 Oxygen Delivery Method Oxygen Flow Rate 1 Fraction of Inspired Oxygen 10/30/22 19:45 10/30/22 19:45 10/30/22 20:00 Temperature Pulse Rate 113 H Respiratory Rate 32 H Blood Pressure 153/116 H 138/106 H Pulse Oximetry 95 Oxygen Delivery Method Oxygen Flow Rate 1 Fraction of Inspired Oxygen 10/30/22 20:00 10/30/22 20:15 10/30/22 20:15 Temperature Pulse Rate 141 H 125 H Respiratory Rate 37 H 29 H Blood Pressure 142/101 H Pulse Oximetry 92 93 Oxygen Delivery Method Oxygen Flow Rate 1 1 Fraction of Inspired Oxygen 10/30/22 20:30 10/30/22 20:30 10/30/22 20:49 Temperature Pulse Rate 126 H 109 H Respiratory Rate 31 H Blood Pressure 144/85 H Pulse Oximetry 95 96 Oxygen Delivery Method Oxygen Flow Rate 1 1 Fraction of Inspired Oxygen 10/30/22 21:00 10/30/22 21:15 10/30/22 21:30 Temperature Pulse Rate 126 H 135 H 135 H Respiratory Rate Blood Pressure Pulse Oximetry 95 94 93 Oxygen Delivery Method Oxygen Flow Rate 1 1 1 Fraction of Inspired Oxygen 10/30/22 21:39 10/30/22 21:39 10/30/22 21:45 Temperature Pulse Rate 135 H Respiratory Rate Blood Pressure 151/93 H 150/88 H Pulse Oximetry 95 Oxygen Delivery Method Oxygen Flow Rate 1 Fraction of Inspired Oxygen 10/30/22 21:45 10/30/22 22:00 10/30/22 22:00 Temperature Pulse Rate 121 H 98 H Respiratory Rate Blood Pressure 143/88 H Pulse Oximetry 95 92 Oxygen Delivery Method Oxygen Flow Rate 1 1 Fraction of Inspired Oxygen 10/30/22 22:15 10/30/22 22:15 Temperature Pulse Rate 131 H Respiratory Rate 28 H Blood Pressure 134/86 Pulse Oximetry 92 Oxygen Delivery Method Oxygen Flow Rate 1 Fraction of Inspired Oxygen MDM - SOB/Dyspnea Lab Data Result diagrams: 10/31/22 05:55 10/30/22 19:00 Labs: Lab Results 10/30/22 10/30/22 10/30/22 Range/Units 19:00 19:00 19:00 WBC 5.8 (4.5-11.0) X10^3/uL RBC 4.88 (4.5-5.9) X10^6/uL Hgb 15.0 (13.5-17.5) g/dL Hct 45.0 (41-53) % MCV 92.2 (80-100) fL MCH 30.8 (26-34) PG MCHC 33.4 (30-36) % RDW 14.4 (11.6-14.8) % Plt Count 187 (150-400) X10^3/uL Neut % (Auto) 74.8 (50-75) % Lymph % (Auto) 13.9 L (25-40) % Hamilton % (Auto) 10.9 (3-14) % Eos % (Auto) 0.0 L (2-4) % Baso % (Auto) 0.4 (0-2) % Neut # (Auto) 4300 (0920-4031) /uL Lymph # (Auto) 800 L (6123-4592) /uL Hamilton # (Auto) 600 (0-900) /uL Eos # (Auto) 0 (0-450) /uL Baso # (Auto) 0 (0-100) /uL PT 46.4 H (10.1-12.7) SECONDS INR 4.0 H (0.9-1.3) Sodium 135 L (137-145) mmol/L Potassium 3.9 (3.4-5.1) mmol/L Chloride 91 L (98-107) mmol/L Carbon Dioxide 32 (22-32) mmol/L BUN 26 H (9-20) mg/dL Creatinine 1.14 (0.66-1.25) mg/dL Estimated GFR > 60 (>60) mL/min BUN/Creatinine Ratio 22.8 H (6-22) Glucose 137 H (80-110) mg/dL Lactate (0.7-2.1) mmol/L Calcium 9.0 (8.4-10.2) mg/dL Total Bilirubin 1.5 H (0.2-1.3) mg/dL AST 144 H (17-59) IU/L ALT 67 H (<50) IU/L Alkaline Phosphatase 176 H (38-126) U/L Troponin I 0.174 H* (0.01-0.034) ng/mL NT-Pro-B Natriuret Pep 70161 H (<450) pg/mL Total Protein 7.7 (6.3-8.2) g/dL Albumin 4.5 (3.5-5.0) g/dL Globulin 3.2 (1.7-4.1) g/dL Albumin/Globulin Ratio 1.4 (1.0-2.8) Procalcitonin (<0.5) ng/mL Ethyl Alcohol ( - 10) mg/dL SARS-CoV-2 (PCR) (Negative) Influenza A (RT-PCR) (NEGATIVE) Influenza B (RT-PCR) (NEGATIVE) RSV (PCR) (Negative) 10/30/22 10/30/22 10/30/22 Range/Units 19:00 19:00 19:00 WBC (4.5-11.0) X10^3/uL RBC (4.5-5.9) X10^6/uL Hgb (13.5-17.5) g/dL Hct (41-53) % MCV (80-100) fL MCH (26-34) PG MCHC (30-36) % RDW (11.6-14.8) % Plt Count (150-400) X10^3/uL Neut % (Auto) (50-75) % Lymph % (Auto) (25-40) % Hamilton % (Auto) (3-14) % Eos % (Auto) (2-4) % Baso % (Auto) (0-2) % Neut # (Auto) (7753-5685) /uL Lymph # (Auto) (9542-7265) /uL Hamilton # (Auto) (0-900) /uL Eos # (Auto) (0-450) /uL Baso # (Auto) (0-100) /uL PT (10.1-12.7) SECONDS INR (0.9-1.3) Sodium (137-145) mmol/L Potassium (3.4-5.1) mmol/L Chloride (98-107) mmol/L Carbon Dioxide (22-32) mmol/L BUN (9-20) mg/dL Creatinine (0.66-1.25) mg/dL Estimated GFR (>60) mL/min BUN/Creatinine Ratio (6-22) Glucose (80-110) mg/dL Lactate 3.4 H (0.7-2.1) mmol/L Calcium (8.4-10.2) mg/dL Total Bilirubin (0.2-1.3) mg/dL AST (17-59) IU/L ALT (<50) IU/L Alkaline Phosphatase (38-126) U/L Troponin I (0.01-0.034) ng/mL NT-Pro-B Natriuret Pep (<450) pg/mL Total Protein (6.3-8.2) g/dL Albumin (3.5-5.0) g/dL Globulin (1.7-4.1) g/dL Albumin/Globulin Ratio (1.0-2.8) Procalcitonin 0.11 (<0.5) ng/mL Ethyl Alcohol < 10 ( - 10) mg/dL SARS-CoV-2 (PCR) (Negative) Influenza A (RT-PCR) (NEGATIVE) Influenza B (RT-PCR) (NEGATIVE) RSV (PCR) (Negative) 10/30/22 10/30/22 10/30/22 Range/Units 19:15 21:13 21:24 WBC (4.5-11.0) X10^3/uL RBC (4.5-5.9) X10^6/uL Hgb (13.5-17.5) g/dL Hct (41-53) % MCV (80-100) fL MCH (26-34) PG MCHC (30-36) % RDW (11.6-14.8) % Plt Count (150-400) X10^3/uL Neut % (Auto) (50-75) % Lymph % (Auto) (25-40) % Hamilton % (Auto) (3-14) % Eos % (Auto) (2-4) % Baso % (Auto) (0-2) % Neut # (Auto) (4779-2531) /uL Lymph # (Auto) (7825-0509) /uL Hamilton # (Auto) (0-900) /uL Eos # (Auto) (0-450) /uL Baso # (Auto) (0-100) /uL PT (10.1-12.7) SECONDS INR (0.9-1.3) Sodium (137-145) mmol/L Potassium (3.4-5.1) mmol/L Chloride (98-107) mmol/L Carbon Dioxide (22-32) mmol/L BUN (9-20) mg/dL Creatinine (0.66-1.25) mg/dL Estimated GFR (>60) mL/min BUN/Creatinine Ratio (6-22) Glucose (80-110) mg/dL Lactate 3.5 H (0.7-2.1) mmol/L Calcium (8.4-10.2) mg/dL Total Bilirubin (0.2-1.3) mg/dL AST (17-59) IU/L ALT (<50) IU/L Alkaline Phosphatase (38-126) U/L Troponin I 0.187 H* (0.01-0.034) ng/mL NT-Pro-B Natriuret Pep (<450) pg/mL Total Protein (6.3-8.2) g/dL Albumin (3.5-5.0) g/dL Globulin (1.7-4.1) g/dL Albumin/Globulin Ratio (1.0-2.8) Procalcitonin (<0.5) ng/mL Ethyl Alcohol ( - 10) mg/dL SARS-CoV-2 (PCR) Negative (Negative) Influenza A (RT-PCR) Flu a negative (NEGATIVE) Influenza B (RT-PCR) Flu b negative (NEGATIVE) RSV (PCR) Positive A (Negative) Imaging Data Chest x-ray: Radiologist's Impression: [address] [address] XRay Report Signed Patient: Markos Savage MR#: [id number] : 1945 Acct:[id number] Age/Sex: 77 / M Date of Service: 10/30/22 Loc: ED Accession Number: [id number] ?? Procedure: XR chest 1V Ordering Provider: Aleida Granados D.O. PROCEDURE:? XR CHEST 1V ? INDICATIONS:? Shortness of breath ? TECHNIQUE:? One view of the chest was acquired.? ? COMPARISON:? [facility], XR CHEST 1V, 01/31/2021, 12:48. ? FINDINGS:? ? Surgical changes and devices:? None.? ? Lungs and pleura:? Lungs are clear.? No pleural effusions or pneumothorax.? ? Mediastinum:? Mediastinal contours appear normal.? Heart size is normal.? ? Bones and chest wall:? No suspicious bony lesions.? Overlying soft tissues appear unremarkable.? ? IMPRESSION:? No acute finding. ? ? Dictated by: Anant Diaz M.D. on 10/30/2022 at 19:44 ? ? Approved by: Anant Diaz M.D. on 10/30/2022 at 19:45?? CT scan - chest: Radiologist's Impression: [address] [address]FB[address] ReportSigned Patient: Markos Savage R#: [id number]: 1945cct:[id number]/Sex: 77 / MDate of Service: 10/30/22Loc: EDAccession Number: [id number]? ? Procedure: XR chest 1V Ordering Provider: Aleida Granados D.O. PROCEDURE:? XR CHEST 1V ? INDICATIONS:? Shortness of breath ? TECHNIQUE:? One view of the chest was acquired.? ? COMPARISON:? [facility], XR CHEST 1V, 01/31/2021, 12:48. ? FINDINGS:? ? Surgical changes and devices:? None.? ? Lungs and pleura:? Lungs are clear.? No pleural effusions or pneumothorax.? ? Mediastinum:? Mediastinal contours appear normal.? Heart size is normal.? ? Bones and chest wall:? No suspicious bony lesions.? Overlying soft tissues appear unremarkable.? ? IMPRESSION:? No acute finding. ? ? Dictated by: Anant Diaz M.D. on 10/30/2022 at 19:44? ?? Approved by: Anant Diaz M.D. on 10/30/2022 at 19:45?? ECG Data Attestation: I personally reviewed and interpreted this ECG as follows: Prior ECG tracings: available for review Interpretation: EKG 1. AFib back in particular response rate of 113 QRS 84 QTC of 521. No acute ST elevation or depression. Patient has prior from 01/31/2021 there is quite a bit of artifact unable to tell if any ST changes but from 07/28/[address] changes noted. EKG 2. AFib RVR rate of 109 QRS is 72 QTC [address]. No acute ST changes patient does have some artifact. EKG 3 AFib RVR rate of 119, QRS is 70 QTC 379. No acute or dynamic changes noted. MDM Narrative Medical decision making narrative: 77-year-old male chronic tobacco use history, tachypneic, tachycardic with low O2 sat suspect more COPD exacerbation patient might possibly have a viral illness although he has not appreciated much change. Does have a history of hypertension, dyslipidemia as well as blood clotting disorder is on Coumadin but felt appropriate to evaluate for PE with CT angio, troponin, BNP to evaluate for CHF and cardiac sources, patient does have AFib RVR but rates 113 suspect this is more response to his breathing difficulty. Patient does not have PE on CT scan does have some ground-glass opacities could be atypical versus viral pneumonia, BNP is elevated although patient is clinically not fluid overloaded & lungs had wheeze but has resolved without crackles for myself, troponin is positive maybe demand ischemia troponin trended upwards but patient has been AFib RVR although rates typically been 120s or less, he also had quite a bit of albuterol. Patient denies chest pain was given aspirin. Lasix was held. Patient is RSV positive likely exacerbating his COPD. Patient's lactate was elevated 3.33.4 on recheck, he has not been receiving fluids to prevent fluid overload. Patient's INR is 4 he is well anticoagulated. LFTs are somewhat elevated at 1 point AST ALT but patient is nontender on exam, afebrile. Case discusssed with Dr. Long, accepts. Patient has received Solu-Medrol, aspirin and albuterol, discussed he does have a who RVR will give metoprolol 5 mg IV, patient accepted for inpatient. Currently boarding in the emergency department but admitted to the hospitalist secondary to staffing shortages. Discharge Plan Departure Patient Disposition: Admitted As Inpatient Clinical Impression: RSV infection, Acute exacerbation of chronic obstructive pulmonary disease, Atrial fibrillation with RVR, Non-ST elevation VT (NSTEMI) Admit Date/Time: 10/30/22 22:23 Admit Provider: Isauro Long
[2022-10-30] MEDS: ALBUTEROL 2.5 MG/3 ML NEB (ADULT) 20 MG INH (19:31)
[2022-10-30] MEDS: methylPREDNISolone 125 MG/2 ML VIAL IV (19:39)
[2022-10-30 19:49] LABS: Lactate (Lactic Acid) 3.4 mmol/L (0.7-2.1)
[2022-10-30 19:51] LABS: Alanine Aminotransferase 67 IU/L (<50); Albumin 4.5 g/dL (3.5-5.0); Albumin Globulin Ratio 1.4 (1.0-2.8); Alkaline Phosphatase 176 U/L (38-126); Aspartate Aminotransferase 144 IU/L (17-59); BUN Creatinine Ratio 22.8 (6-22); Bilirubin Total 1.5 mg/dL (0.2-1.3); Blood Urea Nitrogen 26 mg/dL (9-20); Carbon Dioxide 32 mmol/L (22-32); Chloride 91 mmol/L (98-107); Estimated Glomerular Filt Rate > 60 mL/min (>60); Ethanol (ETOH) < 10 mg/dL; Globulin 3.2 g/dL (1.7-4.1); Glucose 137 mg/dL (80-110); HEMOLYSIS < 15 (0-50); Potassium 3.9 mmol/L (3.4-5.1); Sodium 135 mmol/L (137-145); Total Protein 7.7 g/dL (6.3-8.2)
[2022-10-30 20:02] LABS: NT-proBNP (BNP-Adult 18+) 16300 pg/mL (<450)
[2022-10-30] MEDS: LORazepam 0.5 MG TABLET PO (20:08)
[2022-10-30 20:15] LABS: Influenza A - CEPHEID Flu A NEGATIVE (NEGATIVE); Influenza B - CEPHEID Flu B NEGATIVE (NEGATIVE)
[2022-10-30 20:18] LABS: COVID-19 CEPHEID 4-PLEX PCR Negative (Negative)
[2022-10-30 20:19] LABS: Respiratory Syncytial Virus POSITIVE (Negative)
[2022-10-30 20:34] LABS: Troponin I 0.174 ng/mL (0.01-0.034)
--- NOTE | 2022-10-30 20:38 | RT ---
Pt only did partial nebulizer treatment (20 mg Albuterol). Pt refused to complete entire treatment.
[2022-10-30 21:08] LABS: Reflexed Lactate in 2 Hours Y
[2022-10-30] MEDS: ASPIRIN 81 MG CHEW TAB 324 MG PO (21:36)
[2022-10-30 21:42] LABS: Lactate 2HR (Lactic Acid Rflx) 3.5 mmol/L (0.7-2.1)
[2022-10-30 21:43] LABS: Troponin I 0.187 ng/mL (0.01-0.034)
[2022-10-30] MEDS: METOPROLOL TARTRATE 5 MG/5 ML INJ IV ×3 (22:28→22:38)
[2022-10-30 23:32] LABS: Procalcitonin 0.11 ng/mL (<0.5)
--- NOTE | 2022-10-30 23:48 | P.HP_ITS ---
History of Present Illness History of Present Illness Date Patient Seen: 10/30/22 Time Patient Seen: 22:00 Chief complaint: SOB, breathing difficulties Narrative: Mr. Savage is a 77M with PMH COPD not on oxygen, afib, arterial emboli of leg, HTN, CHFrEF who presents to the hospital with shortness of breath. He states he began feeling short of breath approximately 2 days ago. He had a cough with whitish phlegm. No fevers/chills. No chest pain. He has had inhalers prescribed, but he does not use them. He notes he drinks about 3 beers nightly. He has quit smoking, did smoke for decades. In the ED workup was done, vitals notable for afebrile, heart rate tachycardic in 110s-150s in atrial fibrillation, respiratory rate in 30s, o2 in the 80s on room air. Labs notable for WBC 5.8, hgb 15.0, plts 187. INR 4.0. Lactate 3.4. Bili 1.5, AST/ALT 144/67. Trop 0.174, then 0.187. BNP 32536. RSV positive. Chest xray with no acute findings. CTA chest with no PE, small clustered indistinct ground glass nodules with centrilobular distribution but primarily right lung base. He was ordered albuterol, aspirin, ativan, methylprednisone and admitted for further treatment. Patient History Medical History Arterial embolism of left leg Atrial fibrillation (04/24/16) COPD (chronic obstructive pulmonary disease) Essential hypertension (11/01/17) Gout Peripheral neuropathy Peripheral vascular disease Pure hypercholesterolemia (04/24/16) Retinal detachment Systolic congestive heart failure (04/24/16) Surgical History Anesthesia History of cataract removal with insertion of prosthetic lens History of eye surgery History of surgery Family & Social History Family History Father History of heart disease Sister Cancer Social History: household members none Tobacco & Substance use: Smoking Status Former smoker alcohol intake frequency 0-2 drinks per day Substance Use Type does not use Meds Home Medications and Allergies Home Medications Medication Instructions Recorded Confirmed Type warfarin 1 mg tablet 2 mg PO DAILY #230 tabs 01/31/22 06/21/22 Rx atorvastatin 80 mg tablet 80 mg PO BEDTIME #90 tabs 06/21/22 06/21/22 Rx furosemide 20 mg tablet 20 mg PO BID #180 tabs 06/21/22 06/21/22 Rx metoprolol succinate 50 mg 50 mg PO BID #180 tabs 06/21/22 06/21/22 Rx tablet,extended release 24 hr potassium chloride 10 mEq 10 meq PO BID #180 tabs 06/21/22 06/21/22 Rx tablet,extended release lisinopril 10 mg tablet 10 mg PO BID #180 tabs 07/25/22 Rx Allergies Allergy/AdvReac Type Severity Reaction Status Date / Time No Known Drug Allergies Allergy Verified 10/30/22 18:39 Review of Systems Review of Systems Narrative: 14 systems reviewed and negative aside from what is noted in HPI Exam Vital Signs (past 8 hours): - 10/30/22 18:42 10/30/22 19:00 10/30/22 18:51 Temperature 97.6 F Pulse Rate 112 H 95 H Respiratory Rate 32 H 32 H Blood Pressure 144/87 H Pulse Oximetry 84 L 90 L 91 Oxygen Delivery Method Room Air Oxygen Flow Rate 2 Fraction of Inspired Oxygen 28 10/30/22 18:55 10/30/22 18:55 10/30/22 19:00 Temperature Pulse Rate 112 H Respiratory Rate 31 H Blood Pressure 159/95 H 146/86 H Pulse Oximetry 99 Oxygen Delivery Method Oxygen Flow Rate Fraction of Inspired Oxygen 10/30/22 19:00 10/30/22 19:15 10/30/22 19:15 Temperature Pulse Rate 114 H 116 H Respiratory Rate 36 H 33 H Blood Pressure 142/103 H Pulse Oximetry 98 95 Oxygen Delivery Method Nasal Cannula Oxygen Flow Rate 1 Fraction of Inspired Oxygen 10/30/22 19:30 10/30/22 19:30 10/30/22 19:31 Temperature Pulse Rate 113 H 104 H Respiratory Rate 35 H 24 Blood Pressure 152/84 H Pulse Oximetry 95 95 Oxygen Delivery Method Oxygen Flow Rate 1 Fraction of Inspired Oxygen 10/30/22 19:45 10/30/22 19:45 10/30/22 20:00 Temperature Pulse Rate 113 H Respiratory Rate 32 H Blood Pressure 153/116 H 138/106 H Pulse Oximetry 95 Oxygen Delivery Method Oxygen Flow Rate 1 Fraction of Inspired Oxygen 10/30/22 20:00 10/30/22 20:15 10/30/22 20:15 Temperature Pulse Rate 141 H 125 H Respiratory Rate 37 H 29 H Blood Pressure 142/101 H Pulse Oximetry 92 93 Oxygen Delivery Method Oxygen Flow Rate 1 1 Fraction of Inspired Oxygen 10/30/22 20:30 10/30/22 20:30 10/30/22 20:49 Temperature Pulse Rate 126 H 109 H Respiratory Rate 31 H Blood Pressure 144/85 H Pulse Oximetry 95 96 Oxygen Delivery Method Oxygen Flow Rate 1 1 Fraction of Inspired Oxygen 10/30/22 21:00 10/30/22 21:15 10/30/22 21:30 Temperature Pulse Rate 126 H 135 H 135 H Respiratory Rate Blood Pressure Pulse Oximetry 95 94 93 Oxygen Delivery Method Oxygen Flow Rate 1 1 1 Fraction of Inspired Oxygen 10/30/22 21:39 10/30/22 21:39 10/30/22 21:45 Temperature Pulse Rate 135 H Respiratory Rate Blood Pressure 151/93 H 150/88 H Pulse Oximetry 95 Oxygen Delivery Method Oxygen Flow Rate 1 Fraction of Inspired Oxygen 10/30/22 21:45 10/30/22 22:00 10/30/22 22:00 Temperature Pulse Rate 121 H 98 H Respiratory Rate Blood Pressure 143/88 H Pulse Oximetry 95 92 Oxygen Delivery Method Oxygen Flow Rate 1 1 Fraction of Inspired Oxygen 10/30/22 22:15 10/30/22 22:15 10/30/22 22:30 Temperature Pulse Rate 131 H Respiratory Rate 28 H Blood Pressure 134/86 126/91 H Pulse Oximetry 92 Oxygen Delivery Method Oxygen Flow Rate 1 Fraction of Inspired Oxygen 10/30/22 22:30 10/30/22 22:45 10/30/22 22:46 Temperature Pulse Rate 125 H 137 H Respiratory Rate 33 H 44 H Blood Pressure 120/76 Pulse Oximetry 92 95 Oxygen Delivery Method Oxygen Flow Rate 1 1 Fraction of Inspired Oxygen 10/30/22 22:46 10/30/22 23:00 10/30/22 23:01 Temperature Pulse Rate 144 H 102 H 100 H Respiratory Rate 23 Blood Pressure Pulse Oximetry 95 95 95 Oxygen Delivery Method Oxygen Flow Rate 1 1 1 Fraction of Inspired Oxygen 10/30/22 23:01 Temperature Pulse Rate Respiratory Rate Blood Pressure 109/80 Pulse Oximetry Oxygen Delivery Method Oxygen Flow Rate Fraction of Inspired Oxygen Fraction of Inspired Oxygen 24 SaO2/FiO2 Ratio 395 Oxygen Delivery Method Nasal Cannula Oxygen Flow Rate 1 Narrative Exam Narrative: GEN: no acute distress HEENT: moist mucous membranes, PERRL NECK: trachea midline, no JVD PULM: wheezes bilaterally CV: irregular tachycardic ABD: soft, nontender, nondistended, no organomegaly EXT: warm and well perfused with no edema NEURO: awake, alert, oriented, with no focal deficits Objective Labs Result Diagrams: 10/30/22 19:00 10/30/22 19:00 Labs: Laboratory Results - last 24 hr 10/30/22 10/30/22 10/30/22 19:00 19:00 19:00 WBC 5.8 RBC 4.88 Hgb 15.0 Hct 45.0 MCV 92.2 MCH 30.8 MCHC 33.4 RDW 14.4 Plt Count 187 Neut % (Auto) 74.8 Lymph % (Auto) 13.9 L [place] % (Auto) 10.9 Eos % (Auto) 0.0 L Baso % (Auto) 0.4 Neut # (Auto) 4300 Lymph # (Auto) 800 L [place] # (Auto) 600 Eos # (Auto) 0 Baso # (Auto) 0 PT 46.4 H INR 4.0 H Sodium 135 L Potassium 3.9 Chloride 91 L Carbon Dioxide 32 BUN 26 H Creatinine 1.14 Estimated GFR > 60 BUN/Creatinine Ratio 22.8 H Glucose 137 H Lactate Calcium 9.0 Total Bilirubin 1.5 H AST 144 H ALT 67 H Alkaline Phosphatase 176 H Troponin I 0.174 H* NT-Pro-B Natriuret Pep 21562 H Total Protein 7.7 Albumin 4.5 Globulin 3.2 Albumin/Globulin Ratio 1.4 Procalcitonin Ethyl Alcohol SARS-CoV-2 (PCR) Influenza A (RT-PCR) Influenza B (RT-PCR) RSV (PCR) 10/30/22 10/30/22 10/30/22 19:00 19:00 19:00 WBC RBC Hgb Hct MCV MCH MCHC RDW Plt Count Neut % (Auto) Lymph % (Auto) [place] % (Auto) Eos % (Auto) Baso % (Auto) Neut # (Auto) Lymph # (Auto) [place] # (Auto) Eos # (Auto) Baso # (Auto) PT INR Sodium Potassium Chloride Carbon Dioxide BUN Creatinine Estimated GFR BUN/Creatinine Ratio Glucose Lactate 3.4 H Calcium Total Bilirubin AST ALT Alkaline Phosphatase Troponin I NT-Pro-B Natriuret Pep Total Protein Albumin Globulin Albumin/Globulin Ratio Procalcitonin 0.11 Ethyl Alcohol < 10 SARS-CoV-2 (PCR) Influenza A (RT-PCR) Influenza B (RT-PCR) RSV (PCR) 10/30/22 10/30/22 10/30/22 19:15 21:13 21:24 WBC RBC Hgb Hct MCV MCH MCHC RDW Plt Count Neut % (Auto) Lymph % (Auto) [place] % (Auto) Eos % (Auto) Baso % (Auto) Neut # (Auto) Lymph # (Auto) [place] # (Auto) Eos # (Auto) Baso # (Auto) PT INR Sodium Potassium Chloride Carbon Dioxide BUN Creatinine Estimated GFR BUN/Creatinine Ratio Glucose Lactate 3.5 H Calcium Total Bilirubin AST ALT Alkaline Phosphatase Troponin I 0.187 H* NT-Pro-B Natriuret Pep Total Protein Albumin Globulin Albumin/Globulin Ratio Procalcitonin Ethyl Alcohol SARS-CoV-2 (PCR) Negative Influenza A (RT-PCR) Flu a negative Influenza B (RT-PCR) Flu b negative RSV (PCR) Positive A Assessment & Plan Assessment & Plan narrative: 1. Acute hypoxemic respiratory failure secondary to acute COPD exacerbation secondary to RSV infection -O2 sats in the 80s in the ED, improved with oxygen -wean oxygen as able -ordered for methylpred 60mg IV BID, azithromycin, duonebs -BNP elevated, but clinically not presenting like heart failure -ECHO ordered 2. Atrial fibrillation with rapid ventricular response -rapid rate likely partially related to albuterol -continue coumadin -ordered for IV metoprolol in ED -continue home metoprolol 3. Elevated troponin -initial trop of 0.17, then 0.18 -patient with no chest pain -no stemi on EKG -suspect NSTEMI secondary to demand -continue to trend troponins -ordered aspirin and statin -already anticoagulated with warfarin 4. Hypertension -continue home medications 5. History of arterial thrombus -continue coumadin -INR daily 6. Alcohol abuse -denies significant history of withdrawal -ordered CIWA with ativan -ordered IV thiamine 500mg TID -MVI, folate ordered 7. Transaminitis -presumed secondary to alcohol abuse -trend LFTs daily CODE: Full Proxy: Ros Pakr, daughter I have utilized all available resources to reconcile the patient's home medications. Time Spent With Patient Critical Care time: I spent a total of [] minutes of critical care time on this patient's care today; this time is exclusive of procedural time.
[2022-10-31] VITALS (83 sets, daily range): BP systolic 92–162; BP diastolic 59–100; PULSE 69–300; RESP 18–49; TEMP 36.2–36.3; O2SAT 78–99; BMI 20.9
[2022-10-31 06:24] LABS: INR 3.3 (0.9-1.3)
[2022-10-31] MEDS: AZITHROMYCIN 500 MG in DEXTROSE 5% IN WATER 250 ML 250 MG IV (06:25)
[2022-10-31] MEDS: THIAMINE 500 MG in SODIUM CHLORIDE 0.9% 100 ML 420 MG IV ×4 (06:26→22:14)
[2022-10-31 06:28] LABS: Add Manual Diff / Slide Review NO; Basophils Absolute Auto 0 /uL (0-100); Basophils Percent Auto 0.1 % (0-2); Eosinophils Absolute Auto 0 /uL (0-450); Hematocrit 43.8 % (41-53); Hemoglobin 14.3 g/dL (13.5-17.5); Lymphocytes Absolute Auto 600 /uL (1100-4500); Lymphocytes Percent Auto 17.2 % (25-40); Mean Corpuscular HGB Conc 32.6 % (30-36); Mean Corpuscular Volume 92.1 fL (80-100); Monocytes Absolute Auto 200 /uL (0-900); Monocytes Percent Auto 6.1 % (3-14); Neutrophils Absolute Auto 2500 /uL (1500-7000); Neutrophils Percent Auto 76.6 % (50-75); Platelet Count 183 X10^3/uL (150-400); Red Blood Cell Count 4.76 X10^6/uL (4.5-5.9); Red Cell Distribution Width 14.3 % (11.6-14.8); White Blood Cell Count 3.3 X10^3/uL (4.5-11.0)
[2022-10-31 06:42] LABS: Alanine Aminotransferase 66 IU/L (<50); Albumin 4.5 g/dL (3.5-5.0); Albumin Globulin Ratio 1.5 (1.0-2.8); Alkaline Phosphatase 156 U/L (38-126); Aspartate Aminotransferase 109 IU/L (17-59); BUN Creatinine Ratio 24.8 (6-22); Bilirubin Total 1.1 mg/dL (0.2-1.3); Bilirubin Unconjugated 0.6 mg/dL (0.0-1.1); Blood Urea Nitrogen 28 mg/dL (9-20); Calcium 8.8 mg/dL (8.4-10.2); Carbon Dioxide 31 mmol/L (22-32); Chloride 92 mmol/L (98-107); Estimated Glomerular Filt Rate > 60 mL/min (>60); Glucose 163 mg/dL (80-110); HEMOLYSIS < 15 (0-50); Magnesium 1.9 mg/dL (1.6-2.3); Potassium 3.8 mmol/L (3.4-5.1); Sodium 134 mmol/L (137-145); Total Protein 7.5 g/dL (6.3-8.2)
[2022-10-31 06:52] LABS: Lactate (Lactic Acid) 1.7 mmol/L (0.7-2.1)
[2022-10-31 06:58] LABS: Troponin I 0.142 ng/mL (0.01-0.034)
[2022-10-31] MEDS: ALBUTEROL/IPRATROPIUM 3 ML AMPUL INH ×3 (09:04→23:27)
[2022-10-31] MEDS: ASPIRIN EC 81 MG TABLET PO (09:05)
[2022-10-31] MEDS: methylPREDNISolone 125 MG/2 ML VIAL 60 MG IV ×2 (09:06→22:15)
--- NOTE | 2022-10-31 10:17 | P.PN_ITS ---
Subjective Subjective Date Patient Seen: 10/31/22 Interval history: 77M with PMH COPD not on oxygen, afib, arterial emboli of leg, HTN, CHFrEF who presents to the hospital with shortness of breath. Noted to be in respiratory distress with O2 sat in the 80s on room air, elevated lactate, elevated LFTs, elevated troponin with small indistinct ground-glass nodules bilaterally on CT. Tested positive for RSV. Patient notes improvement in his breathing since he came into the ED. Exam Vital Signs (past 8 hours): - 10/31/22 02:30 10/31/22 02:30 10/31/22 02:45 Pulse Rate 97 H Respiratory Rate Blood Pressure 121/81 121/76 Pulse Oximetry 95 Oxygen Flow Rate Fraction of Inspired Oxygen 10/31/22 02:45 10/31/22 03:00 10/31/22 03:00 Pulse Rate 95 H 94 H Respiratory Rate Blood Pressure 114/84 Pulse Oximetry 86 L 96 Oxygen Flow Rate Fraction of Inspired Oxygen 10/31/22 03:15 10/31/22 03:15 10/31/22 03:30 Pulse Rate 93 H Respiratory Rate Blood Pressure 116/71 109/63 Pulse Oximetry 97 Oxygen Flow Rate Fraction of Inspired Oxygen 10/31/22 03:30 10/31/22 03:45 10/31/22 03:45 Pulse Rate 96 H 106 H Respiratory Rate Blood Pressure 115/75 Pulse Oximetry 96 97 Oxygen Flow Rate Fraction of Inspired Oxygen 10/31/22 04:00 10/31/22 04:00 10/31/22 04:15 Pulse Rate 95 H Respiratory Rate Blood Pressure 123/79 110/80 Pulse Oximetry 97 Oxygen Flow Rate Fraction of Inspired Oxygen 10/31/22 04:15 10/31/22 04:30 10/31/22 04:31 Pulse Rate 92 H 91 H Respiratory Rate Blood Pressure 118/78 Pulse Oximetry 97 99 Oxygen Flow Rate Fraction of Inspired Oxygen 10/31/22 04:31 10/31/22 04:45 10/31/22 04:45 Pulse Rate 97 H 106 H Respiratory Rate 23 Blood Pressure 122/81 Pulse Oximetry 98 92 Oxygen Flow Rate Fraction of Inspired Oxygen 10/31/22 05:00 10/31/22 05:00 10/31/22 05:15 Pulse Rate 111 H 128 H Respiratory Rate 35 H 43 H Blood Pressure 119/77 Pulse Oximetry 94 88 L Oxygen Flow Rate Fraction of Inspired Oxygen 10/31/22 05:16 10/31/22 05:16 10/31/22 05:30 Pulse Rate 110 H Respiratory Rate 26 H Blood Pressure 162/75 H 122/71 Pulse Oximetry 90 L Oxygen Flow Rate Fraction of Inspired Oxygen 10/31/22 05:30 10/31/22 05:45 10/31/22 05:45 Pulse Rate 111 H 102 H Respiratory Rate 24 Blood Pressure 142/86 H Pulse Oximetry 93 94 Oxygen Flow Rate Fraction of Inspired Oxygen 10/31/22 06:00 10/31/22 06:00 10/31/22 06:15 Pulse Rate 116 H Respiratory Rate 26 H Blood Pressure 129/83 133/81 Pulse Oximetry 93 Oxygen Flow Rate Fraction of Inspired Oxygen 10/31/22 06:15 10/31/22 06:30 10/31/22 06:30 Pulse Rate 129 H 115 H Respiratory Rate 32 H 30 H Blood Pressure 132/79 Pulse Oximetry 91 95 Oxygen Flow Rate Fraction of Inspired Oxygen 10/31/22 09:05 10/31/22 06:45 10/31/22 06:45 Pulse Rate 110 H 118 H Respiratory Rate 18 28 H Blood Pressure 115/77 Pulse Oximetry 93 95 Oxygen Flow Rate 2 Fraction of Inspired Oxygen 28 10/31/22 07:00 10/31/22 07:00 10/31/22 07:13 Pulse Rate 99 H Respiratory Rate 30 H Blood Pressure 119/88 Pulse Oximetry 95 98 Oxygen Flow Rate Fraction of Inspired Oxygen 10/31/22 07:16 10/31/22 07:29 10/31/22 07:30 Pulse Rate 118 H Respiratory Rate Blood Pressure 109/63 110/59 L Pulse Oximetry 91 Oxygen Flow Rate Fraction of Inspired Oxygen 10/31/22 07:45 10/31/22 07:45 10/31/22 08:00 Pulse Rate 103 H Respiratory Rate Blood Pressure 104/62 105/59 L Pulse Oximetry 95 Oxygen Flow Rate Fraction of Inspired Oxygen 10/31/22 08:00 10/31/22 08:15 10/31/22 08:16 Pulse Rate 106 H 113 H Respiratory Rate Blood Pressure 105/60 Pulse Oximetry Oxygen Flow Rate Fraction of Inspired Oxygen 10/31/22 08:16 10/31/22 08:30 10/31/22 08:45 Pulse Rate 97 H 123 H Respiratory Rate Blood Pressure 130/88 Pulse Oximetry 94 Oxygen Flow Rate Fraction of Inspired Oxygen 10/31/22 08:45 10/31/22 09:00 10/31/22 09:00 Pulse Rate 112 H 103 H Respiratory Rate Blood Pressure 132/100 H Pulse Oximetry 92 93 Oxygen Flow Rate Fraction of Inspired Oxygen Fraction of Inspired Oxygen 28 SaO2/FiO2 Ratio 332 Oxygen Delivery Method Nasal Cannula Oxygen Flow Rate 2 Narrative Exam Narrative: General: Alert very pleasant male sitting up on edge bed and not in acute distress Lungs: Not tachypneic, able to speak full sentences, clear to auscultation Heart: Tachycardic with irregularly irregular rhythm Extremities: No pitting edema Neurological: Affect normal, speech normal, no focal weakness Objective Labs Result Diagrams: 10/31/22 05:55 10/31/22 05:55 Labs: Laboratory Results - last 24 hr 10/30/22 10/30/22 10/30/22 19:00 19:00 19:00 WBC 5.8 RBC 4.88 Hgb 15.0 Hct 45.0 MCV 92.2 MCH 30.8 MCHC 33.4 RDW 14.4 Plt Count 187 Neut % (Auto) 74.8 Lymph % (Auto) 13.9 L [place] % (Auto) 10.9 Eos % (Auto) 0.0 L Baso % (Auto) 0.4 Neut # (Auto) 4300 Lymph # (Auto) 800 L [place] # (Auto) 600 Eos # (Auto) 0 Baso # (Auto) 0 PT 46.4 H INR 4.0 H Sodium 135 L Potassium 3.9 Chloride 91 L Carbon Dioxide 32 BUN 26 H Creatinine 1.14 Estimated GFR > 60 BUN/Creatinine Ratio 22.8 H Glucose 137 H Lactate Calcium 9.0 Magnesium Total Bilirubin 1.5 H Conjugated Bilirubin Unconjugated Bilirubin AST 144 H ALT 67 H Alkaline Phosphatase 176 H Troponin I 0.174 H* NT-Pro-B Natriuret Pep 82883 H Total Protein 7.7 Albumin 4.5 Globulin 3.2 Albumin/Globulin Ratio 1.4 Procalcitonin Ethyl Alcohol SARS-CoV-2 (PCR) Influenza A (RT-PCR) Influenza B (RT-PCR) RSV (PCR) 10/30/22 10/30/22 10/30/22 19:00 19:00 19:00 WBC RBC Hgb Hct MCV MCH MCHC RDW Plt Count Neut % (Auto) Lymph % (Auto) [place] % (Auto) Eos % (Auto) Baso % (Auto) Neut # (Auto) Lymph # (Auto) [place] # (Auto) Eos # (Auto) Baso # (Auto) PT INR Sodium Potassium Chloride Carbon Dioxide BUN Creatinine Estimated GFR BUN/Creatinine Ratio Glucose Lactate 3.4 H Calcium Magnesium Total Bilirubin Conjugated Bilirubin Unconjugated Bilirubin AST ALT Alkaline Phosphatase Troponin I NT-Pro-B Natriuret Pep Total Protein Albumin Globulin Albumin/Globulin Ratio Procalcitonin 0.11 Ethyl Alcohol < 10 SARS-CoV-2 (PCR) Influenza A (RT-PCR) Influenza B (RT-PCR) RSV (PCR) 10/30/22 10/30/22 10/30/22 19:15 21:13 21:24 WBC RBC Hgb Hct MCV MCH MCHC RDW Plt Count Neut % (Auto) Lymph % (Auto) [place] % (Auto) Eos % (Auto) Baso % (Auto) Neut # (Auto) Lymph # (Auto) [place] # (Auto) Eos # (Auto) Baso # (Auto) PT INR Sodium Potassium Chloride Carbon Dioxide BUN Creatinine Estimated GFR BUN/Creatinine Ratio Glucose Lactate 3.5 H Calcium Magnesium Total Bilirubin Conjugated Bilirubin Unconjugated Bilirubin AST ALT Alkaline Phosphatase Troponin I 0.187 H* NT-Pro-B Natriuret Pep Total Protein Albumin Globulin Albumin/Globulin Ratio Procalcitonin Ethyl Alcohol SARS-CoV-2 (PCR) Negative Influenza A (RT-PCR) Flu a negative Influenza B (RT-PCR) Flu b negative RSV (PCR) Positive A 10/31/22 10/31/22 10/31/22 05:55 05:55 06:05 WBC 3.3 L RBC 4.76 Hgb 14.3 Hct 43.8 MCV 92.1 MCH 30.0 MCHC 32.6 RDW 14.3 Plt Count 183 Neut % (Auto) 76.6 H Lymph % (Auto) 17.2 L [place] % (Auto) 6.1 Eos % (Auto) 0.0 L Baso % (Auto) 0.1 Neut # (Auto) 2500 Lymph # (Auto) 600 L [place] # (Auto) 200 Eos # (Auto) 0 Baso # (Auto) 0 PT 38.0 H D INR 3.3 H Sodium 134 L Potassium 3.8 Chloride 92 L Carbon Dioxide 31 BUN 28 H Creatinine 1.13 Estimated GFR > 60 BUN/Creatinine Ratio 24.8 H Glucose 163 H Lactate Calcium 8.8 Magnesium 1.9 Total Bilirubin 1.1 Conjugated Bilirubin 0.0 Unconjugated Bilirubin 0.6 AST 109 H ALT 66 H Alkaline Phosphatase 156 H Troponin I NT-Pro-B Natriuret Pep Total Protein 7.5 Albumin 4.5 Globulin 3.0 Albumin/Globulin Ratio 1.5 Procalcitonin Ethyl Alcohol SARS-CoV-2 (PCR) Influenza A (RT-PCR) Influenza B (RT-PCR) RSV (PCR) 10/31/22 10/31/22 06:05 06:24 WBC RBC Hgb Hct MCV MCH MCHC RDW Plt Count Neut % (Auto) Lymph % (Auto) [place] % (Auto) Eos % (Auto) Baso % (Auto) Neut # (Auto) Lymph # (Auto) [place] # (Auto) Eos # (Auto) Baso # (Auto) PT INR Sodium Potassium Chloride Carbon Dioxide BUN Creatinine Estimated GFR BUN/Creatinine Ratio Glucose Lactate 1.7 Calcium Magnesium Total Bilirubin Conjugated Bilirubin Unconjugated Bilirubin AST ALT Alkaline Phosphatase Troponin I 0.142 H* NT-Pro-B Natriuret Pep Total Protein Albumin Globulin Albumin/Globulin Ratio Procalcitonin Ethyl Alcohol SARS-CoV-2 (PCR) Influenza A (RT-PCR) Influenza B (RT-PCR) RSV (PCR) [facility] Medical History Arterial embolism of left leg Atrial fibrillation (04/24/16) COPD (chronic obstructive pulmonary disease) Essential hypertension (11/01/17) Gout Peripheral neuropathy Peripheral vascular disease Pure hypercholesterolemia (04/24/16) Retinal detachment Systolic congestive heart failure (04/24/16) Surgical History Anesthesia History of cataract removal with insertion of prosthetic lens History of eye surgery History of surgery Family History Father History of heart disease Sister Cancer Social History household members: none Smoking Status: Former smoker Assessment & Plan Assessment & Plan narrative: 1. Acute hypoxemic respiratory failure secondary to acute COPD exacerbation secondary to RSV infection -O2 sats in the 80s in the ED, improved with oxygen -CT scan consistent with viral etiology -mild leukopenia consistent with viral infection -wean oxygen as able -continue for methylpred 60mg IV BID, azithromycin, duonebs 2. History of congestive heart failure with systolic dysfunction -BNP [id number] but patient does not appear in acute heart failure -echo pending 3. Chronic atrial fibrillation with rapid ventricular response -rapid rate likely partially related to albuterol -continue coumadin -ordered for IV metoprolol in ED -continue home metoprolol -check daily INR 4. Elevated troponin -initial trop of 0.17-->0.18-->0.14 -patient with no chest pain -no stemi on EKG -suspect NSTEMI secondary to demand -continue to trend troponins -ordered aspirin and statin -already anticoagulated with warfarin 5. Hypertension -continue home medications, lisinopril and metoprolol 6. History of arterial thrombus -continue coumadin -INR daily 7. Alcohol abuse -denies significant history of withdrawal -ordered CIWA with ativan -ordered IV thiamine 500mg TID -MVI, folate ordered 8. Transaminitis -presumed secondary to alcohol abuse -CT with evidence of cirrhotic liver -trend LFTs CODE: Full Proxy: [place], daughter Time Spent With Patient Critical Care time: I spent a total of [] minutes of critical care time on this patient's care today; this time is exclusive of procedural time.
[2022-10-31] MEDS: FOLIC ACID 1 MG TABLET PO (10:33)
[2022-10-31] MEDS: MULTIVITAMIN 1 TABLET 1 TAB PO (10:33)
[2022-10-31] MEDS: METOPROLOL ER 50 MG TABLET PO ×2 (10:33→22:07)
[2022-10-31] MEDS: LORazepam 1 MG TABLET PO ×3 (10:36→16:03)
--- NOTE | 2022-10-31 15:39 | DI.ECHO.S_ITS ---
[facility] +---------+ : : [address] : : : : [id number] : : : : Phone: [phone]+ Echocardiogram Report + + :Name: MILTON ATKINS Study Date: 11/01/2022 Height: 66 in : :[facility] ReadingLocation: Weight: 130 lb : : Gender: Male BSA: 1.7 m2 : :: 1945 Age: 77 yrs BP: 115/75 mmHg: :Reason For Study: ELEVATED TROPONINS : :Ordering Physician: SANDRA, : :EVIN Performed By: Suellen Ferguson : :Referring: EVIN FLORES : + + Interpretation Summary Left ventricular ejection fraction is estimated to be 30 +/- 5%. There is global hypokinesis. Anteroseptal wall is thinned out and markedly hypokinetic consistent with prior infarction. Compared to prior study there is significant reduction in LV function. There is moderate aortic valve sclerosis. There is moderately reduced leaflet mobility. The patient likely has moderate aortic stenosis. Given his LV dysfunction aortic valve area may be underestimated. On 2D imaging however the stenosis does not appear to be critical. There is mild to moderate tricuspid regurgitation. The right ventricular systolic pressure is estimated to be at least 32 mmHg based on an estimated right atrial pressure of 8 mm Hg. Procedure: A two-dimensional transthoracic echocardiogram with color flow and Doppler was performed. The study quality was technically adequate. Comparison is made with the echocardiogram of 08/25/2019. The patient was in atrial fibrillation with heart rates between 95-127 bpm during the exam. Left Ventricle: The left ventricle is normal in size. There is normal left ventricular wall thickness. Left ventricular ejection fraction is estimated to be 30 +/- 5%. There is global hypokinesis. Anteroseptal wall is thinned out and markedly hypokinetic consistent with prior infarction. Compared to prior study there is significant reduction in LV function. Diastolic function could not be accurately assessed due to atrial fibrillation. Right Ventricle: Right ventricular systolic function is moderate to severely reduced. Atria: The left atrium is severely dilated. The right atrium is severely dilated. There is no Doppler evidence for an interatrial shunt. Mitral Valve: There is moderate mitral annular calcification. The mitral valve leaflets appear mildly thickened, but open well. There is mild mitral regurgitation. Aortic Valve: The aortic valve is trileaflet. The aortic valve is mildly calcified. There is moderately reduced leaflet mobility. There is moderate aortic valve sclerosis. The peak aortic velocity is 1.28 m/sec. The aortic valve mean gradient is 4 mmHg. The calculated aortic valve area is 1.2 cm2. The patient likely has moderate aortic stenosis. Given his LV dysfunction aortic valve area may be underestimated. On 2D imaging however the stenosis does not appear to be critical. No aortic regurgitation is present. Tricuspid Valve: The tricuspid valve leaflets are thin and pliable. There is mild to moderate tricuspid regurgitation. The right ventricular systolic pressure is estimated to be at least 32 mmHg based on an estimated right atrial pressure of 8 mm Hg. Pulmonic Valve: The pulmonic valve is not well seen, but is grossly normal. There is trace pulmonic regurgitation. Great Vessels: The aortic root is normal size. The dimensions of the ascending aorta are normal. The IVC is dilated (diameter is greater than 2.1 cm) yet it collapses greater than 50% with a sniff. This suggests a right atrial pressure of 8 mm Hg. Pericardium/ Pleura There is no pericardial effusion. There is no pleural effusion. MMode/2D Measurements & Calculations LVIDd: 4.4 cm LVOT diam: 1.9 cm LVIDs: 3.5 cm Ao root diam: 3.4 cm FS: 19.7 % asc Aorta Diam: 3.4 cm EPSS: 1.2 cm IVSd: 0.90 cm LVPWd: 0.98 cm LV monsivais. diameter/BSA (cm/m^2): 2.6 LV sys. diameter/BSA (cm/m^2): 2.1 LA A2 area: 28.8 cm2 RA long axis: 6.1 cm LA A4 area: 24.5 cm2 RA area: 24.3 cm2 LA length (vol): 6.1 cm RA vol: 81.7 ml LA vol: 97.5 ml RA : 49.0 ml/m2 LA vol index: 58.5 ml/m2 IVC diam: 2.4 cm RVD1 (basal): 3.8 cm RVD2 (mid): 3.1 cm TAPSE: 1.0 cm Doppler Measurements & Calculations Ao V2 max: 128.2 cm/sec LVOT Max Roman: 55.5 cm/sec Ao V2 mean: 90.0 cm/sec LV V1 max P.2 mmHg Ao max P.3 mmHg LV V1 VTI: 9.1 cm Ao mean P.6 mmHg NILSON(I,D): 1.1 cm2 Ao V2 VTI: 22.0 cm NILSON(V,D): 1.2 cm2 sev ratio: 0.41 NILSON indexed to BSA (cm^2/m^2): 0.67 MV E max roman: 85.7 cm/sec TR max roman: 244.2 cm/sec MV A max roman: 1.3 cm/sec TR max P.9 mmHg MV E/A: 68.5 PA pr(Accel): 32.8 mmHg Med Peak E' Roman: 5.2 cm/sec E/E' med: 16.3 Lat Peak E' Roman: 6.9 cm/sec E/E' lat: 12.4 E/e' average: 14.4 MV dec time: 0.17 sec SV(LVOT): 24.5 ml Reading Physician:11:19 AM
[2022-10-31] MEDS: WARFARIN 1 MG TABLET 2 MG PO (17:54)
--- NOTE | 2022-10-31 17:54 | PC.NURSE ---
Per Rey, OK to give warfarin
--- NOTE | 2022-10-31 18:08 | PC.NURSE ---
Pt frequently removes leads and BP cuffs and O2. When O2 is removed sats drop. Pt ambulates to the bathroom without O2. Pt returns with sats in the mid 70's. Pt is stable on feet and ambulates without assist but is impulsive, Does not use call light.
--- NOTE | 2022-10-31 18:35 | PC.NURSE ---
Admit note: Received patient from ED to room 216. Ambulated from gurney to bed with minimal assistance. Received on O2 at 2L via NC, 98%. Set up for dinner, minimal PO intake. Oriented to room, environment, and plan of care. High fall risk precautions initiated, call light within reach, bed alarm active. Seizure and droplet precautions initiated.
[2022-10-31] MEDS: ATORVASTATIN 20 MG TABLET 40 MG PO (22:07)
[2022-10-31] MEDS: LORazepam 2 MG/ML INJ IV (23:32)
[2022-11-01] VITALS (11 sets, daily range): BP systolic 114–134; BP diastolic 60–92; PULSE 93–106; RESP 16–20; TEMP 35.9–36.7; O2SAT 90–98
--- NOTE | 2022-11-01 02:14 | PC.NURSE ---
Verified w/ hospitalist Mercedes for no tele orders. Pt tried to get out of bed twice alone w/ bed alarm ringing. RN re-educated pt to call for assistance. Pt states 'tries to drink 1-2 norbert's hard lemonades' a day, stated anxiety. When standing to change from clothes to gown pt very unsteady on feet w/ visible tremors. 1mg ativan given d/t CIWA 8. Pt has been sleeping since. Sat high 90s on 2L, adjusting throughout night as pt sometimes removes NC and drops to 80s,
[2022-11-01] MEDS: AZITHROMYCIN 500 MG in DEXTROSE 5% IN WATER 250 ML 250 MG IV (05:17)
[2022-11-01 05:36] LABS: Add Manual Diff / Slide Review NO; Basophils Absolute Auto 0 /uL (0-100); Eosinophils Absolute Auto 0 /uL (0-450); Hematocrit 44.2 % (41-53); Hemoglobin 14.6 g/dL (13.5-17.5); Lymphocytes Absolute Auto 800 /uL (1100-4500); Lymphocytes Percent Auto 11.7 % (25-40); Mean Corpuscular HGB Conc 33.1 % (30-36); Mean Corpuscular Hemoglobin 30.3 PG (26-34); Mean Corpuscular Volume 91.6 fL (80-100); Monocytes Absolute Auto 300 /uL (0-900); Monocytes Percent Auto 5.3 % (3-14); Neutrophils Absolute Auto 5400 /uL (1500-7000); Platelet Count 179 X10^3/uL (150-400); Red Blood Cell Count 4.82 X10^6/uL (4.5-5.9); Red Cell Distribution Width 14.4 % (11.6-14.8); White Blood Cell Count 6.6 X10^3/uL (4.5-11.0)
[2022-11-01 05:42] LABS: INR 3.1 (0.9-1.3); Prothrombin Time 36.1 SECONDS (10.1-12.7)
[2022-11-01 05:45] LABS: Alanine Aminotransferase 65 IU/L (<50); Albumin 4.1 g/dL (3.5-5.0); Albumin Globulin Ratio 1.4 (1.0-2.8); Alkaline Phosphatase 127 U/L (38-126); Aspartate Aminotransferase 83 IU/L (17-59); BUN Creatinine Ratio 28.8 (6-22); Bilirubin Total 0.9 mg/dL (0.2-1.3); Blood Urea Nitrogen 34 mg/dL (9-20); Calcium 8.8 mg/dL (8.4-10.2); Carbon Dioxide 36 mmol/L (22-32); Chloride 93 mmol/L (98-107); Cholesterol 155 mg/dL (140-199); Estimated Glomerular Filt Rate > 60 mL/min (>60); Globulin 2.9 g/dL (1.7-4.1); Glucose 131 mg/dL (80-110); HDL Cholesterol 73 mg/dL (40-60); HEMOLYSIS < 15 (0-50); LDL Cholesterol Calculated 66 mg/dL (<100); Potassium 4.1 mmol/L (3.4-5.1); Sodium 136 mmol/L (137-145); Triglycerides 81 mg/dL (35-150)
[2022-11-01] MEDS: MULTIVITAMIN 1 TABLET 1 TAB PO (08:27)
[2022-11-01] MEDS: METOPROLOL ER 50 MG TABLET PO (08:27)
[2022-11-01] MEDS: ASPIRIN EC 81 MG TABLET PO (08:27)
[2022-11-01] MEDS: FOLIC ACID 1 MG TABLET PO (08:27)
[2022-11-01] MEDS: methylPREDNISolone 125 MG/2 ML VIAL 60 MG IV (08:31)
[2022-11-01] MEDS: THIAMINE 500 MG in SODIUM CHLORIDE 0.9% 100 ML 420 MG IV (08:38)
--- NOTE | 2022-11-01 11:23 | PC.NURSE ---
Addendum entered by Marifer Bess R.N. 11/01/22 19:07: Daughter here@ 1850 Pt escorted by staff via W/C to waiting car. D/C in stable condition. Addendum entered by Marifer Bess R.N. 11/01/22 15:10: Received D/C orders notifing daughter HL D/C intact. Pt amb in room waiting for ride. Original Note: Pt alert w/some forgetfulness Refuses to leave O2 on, SpO2 89-92% MD aware. Ambulating around room w/o incidence Call light w/in reach, bed alarm on for pt safety. Continue w/ plan of care.
[2022-11-01] MEDS: ALBUTEROL/IPRATROPIUM 3 ML AMPUL INH (11:42)
--- NOTE | 2022-11-01 12:41 | CM.DANOTE ---
Discharge Planning/Care Management Advanced directive, confirm from FAMILY Start: 10/31/22 18:26 Freq: Q24H Status: Active Protocol: Document 10/31/22 18:26 EM (Rec: 10/31/22 18:29 EM [id number]) Advance Directive, confirm on record Time 18:29 Person contacted patient Copy received No
--- NOTE | 2022-11-01 13:00 | CM.DANOTE ---
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 DCP's assessment completed with information currently available. Pt came in via walk-in to ED on 10/31/2022 to the care of the hospitalist team PCP-Dr.Abbey Cisneros- [facility] 77 yo male pt came to the hospital with difficulty breathing, SOB, Respiratory failure secondary to acute Copd exacerbation secondary to RSV infection, he has a history of COPD without oxygen, CHF with systolic dysfunction, Chronic Afib with RVR. It was noted that in the ED pt was desatting to the 80's on RA. Met with pt today. He confirmed that he lives alone in a home in [place]. Pt reported, I just live downstairs from here Pt states that he still drives and that it will be okay for this DCP, RN to speak with his daughter who lives in [place] about a discharge plan if necessary. Pt uses a cane that is in his room, he states that the cane is new for him. Plan: Continue to monitor and assess needs once PT, OT works with pt and confer with family re. pt needs. Discharge Planning/Care Management Advanced directive, confirm from FAMILY Start: 10/31/22 18:26 Freq: Q24H Status: Active Protocol: Document 10/31/22 18:26 EM (Rec: 10/31/22 18:29 EM [id number]) Advance Directive, confirm on record Time 18:29 Person contacted patient Copy received No CM Discharge Assessment Start: 11/01/22 12:45 Freq: Status: Active Protocol: Document 11/01/22 12:45 JS (Rec: 11/01/22 13:00 JS [id number]) Discharge Planning Assessment Assigned Broadcast Director Operations Maty Hylton RN Case Manager Advance Directives? Yes Advance Directives on File No History Provided By Patient,Medical Record Prior Living Arrangements House Household Members none Type of transporation used prior to Drives own vehicle admit Independent with ADL's Yes Is patient alert and oriented? Yes: Not to situation Caregiver for Another No DME Already Rented / Owned Cane Patient/Family Preference Home with Home Health Comment Pt does not currently have PT orders as of yet Barriers to Discharge Yes Comment Pt drinks, he lives alone, he is impulsive Transportation Arrangement Daughter lives in [place] Referrals Initiated Other Additional Comment Will need to see how pt does with further monitoring and collaboration with family Whiteboard Updated in Patient Room with No name and ext. # of Broadcast Director Operations Comment Pt is in isolation, RSV + Review Status In Process Next Review Type Continued Stay Review
--- NOTE | 2022-11-01 18:14 | PM.DS.1 ---
History of Present Illness History of Present Illness Date Patient Seen: 11/01/22 Time Patient Seen: 22:00 Chief complaint: SOB, breathing difficulties Narrative: Mr. Savage is a 77M with PMH COPD not on oxygen, afib, arterial emboli of leg, HTN, CHFrEF who presents to the hospital with shortness of breath. He states he began feeling short of breath approximately 2 days ago. He had a cough with whitish phlegm. No fevers/chills. No chest pain. He has had inhalers prescribed, but he does not use them. He notes he drinks about 3 beers nightly. He has quit smoking, did smoke for decades. In the ED workup was done, vitals notable for afebrile, heart rate tachycardic in 110s-150s in atrial fibrillation, respiratory rate in 30s, o2 in the 80s on room air. Labs notable for WBC 5.8, hgb 15.0, plts 187. INR 4.0. Lactate 3.4. Bili 1.5, AST/ALT 144/67. Trop 0.174, then 0.187. BNP 33973. RSV positive. Chest xray with no acute findings. CTA chest with no PE, small clustered indistinct ground glass nodules with centrilobular distribution but primarily right lung base. He was ordered albuterol, aspirin, ativan, methylprednisone and admitted for further treatment. Discharge Providers Provider Date of admission: 10/30/22 22:23 Discharge Date: 11/01/22 Primary care physician: Roly Millan MD Consults: 10/31/22 18:25 Consult to Dietitian, Adult Routine Comment: Reason For Exam: unintentional weight loss/decrease in food intake Discharge provider: Matt Morales DO Summary Hospital Course Discharge Diagnosis: 1. Acute hypoxemic respiratory failure secondary to acute COPD exacerbation secondary to RSV infection -O2 sats in the 80s in the ED, improved with oxygen -CT scan consistent with viral etiology -mild leukopenia consistent with viral infection -wean oxygen as able -received methylpred 60mg IV BID, azithromycin, duonebs -discharged on po prednisone 40 daily x3 days 2.Worsening of chronic systolic heart failure -Echo 10/31 returned with worsened EF from 45-50% to 30-35% with global LV hypokinesis -patient will need cardiology outpatient follow-up -added spironolactone 25mg daily, discontinued potassium supplement and lowered lisinopril to 5mg BID 3. Chronic atrial fibrillation with rapid ventricular response, improved -rapid rate likely partially related to albuterol -continue coumadin -ordered for IV metoprolol in ED -continue home metoprolol -check daily INR 4. Elevated troponin -initial trop of 0.17-->0.18-->0.14 -patient with no chest pain -no stemi on EKG -suspect NSTEMI secondary to demand -continue to trend troponins -ordered statin -already anticoagulated with warfarin 5. Hypertension -continue home medications, lisinopril and metoprolol 6. History of arterial thrombus -continue coumadin -INR daily 7. Alcohol abuse -denies significant history of withdrawal -ordered CIWA with ativan -ordered IV thiamine 500mg TID -MVI, folate ordered 8. Transaminitis -presumed secondary to alcohol abuse -CT with evidence of cirrhotic liver -trend LFTs Hospital Course: 77M with PMH COPD not on oxygen, afib, arterial emboli of leg, HTN, CHFrEF who presents to the hospital with shortness of breath.? Noted to be in respiratory distress with O2 sat in the 80s on room air, elevated lactate, elevated LFTs, elevated troponin with small indistinct ground-glass nodules bilaterally on CT.? Tested positive for RSV. Given steroids, deepti gonzalez with improvement and able to wean off O2. Echo showed worsened EF of 30-35% so aldactone added to daily regimen. Due to this his K supplement was stopped and lisinopril dose halved to prevent hyperkalemia. He will f/u with PCP for cardiology referral. Time Spent with Patient Time spent: Greater than 30 minutes Exam Vital Signs (past 8 hours): - 11/01/22 11:43 11/01/22 14:00 11/01/22 16:49 Temperature 97.8 F Pulse Rate 102 H 93 H Respiratory Rate 16 17 Blood Pressure 134/92 H Pulse Oximetry 96 92 93 Oxygen Delivery Method Room Air Oxygen Flow Rate 3 0 Fraction of Inspired Oxygen 28 SaO2/FiO2 Ratio 346 Oxygen Delivery Method Room Air Oxygen Flow Rate 0 Narrative Exam Narrative: General: Alert very pleasant male sitting up on edge bed and not in acute distress Lungs: Not tachypneic, able to speak full sentences, clear to auscultation Heart: Tachycardic with irregularly irregular rhythm Extremities: No pitting edema Neurological: Affect normal, speech normal, no focal weakness Objective Labs Result Diagrams: 11/01/22 05:02 11/01/22 05:02 Labs: Laboratory Results - last 24 hr 11/01/22 11/01/22 11/01/22 05:02 05:02 05:02 WBC 6.6 D RBC 4.82 Hgb 14.6 Hct 44.2 MCV 91.6 MCH 30.3 MCHC 33.1 RDW 14.4 Plt Count 179 Neut % (Auto) 83.0 H Lymph % (Auto) 11.7 L [place] % (Auto) 5.3 Eos % (Auto) 0.0 L Baso % (Auto) 0.0 Neut # (Auto) 5400 Lymph # (Auto) 800 L [place] # (Auto) 300 Eos # (Auto) 0 Baso # (Auto) 0 PT 36.1 H INR 3.1 H Sodium 136 L Potassium 4.1 Chloride 93 L Carbon Dioxide 36 H BUN 34 H Creatinine 1.18 Estimated GFR > 60 BUN/Creatinine Ratio 28.8 H Glucose 131 H Calcium 8.8 Total Bilirubin 0.9 AST 83 H ALT 65 H Alkaline Phosphatase 127 H Total Protein 7.0 Albumin 4.1 Globulin 2.9 Albumin/Globulin Ratio 1.4 Triglycerides 81 Cholesterol 155 LDL Cholesterol, Calc 66 HDL Cholesterol 73 H [facility] Medical History Arterial embolism of left leg Atrial fibrillation (04/24/16) COPD (chronic obstructive pulmonary disease) Essential hypertension (11/01/17) Gout Peripheral neuropathy Peripheral vascular disease Pure hypercholesterolemia (04/24/16) Retinal detachment Systolic congestive heart failure (04/24/16) Surgical History Anesthesia History of cataract removal with insertion of prosthetic lens History of eye surgery History of surgery Family History Father History of heart disease Sister Cancer Social History household members: none Smoking Status: Former smoker Discharge Plan Discharge Plan Patient Disposition: Home Provider Discharge Comment: You were admitted for RSV infection. While you were here we did an echo of your heart which showed reduced function (aka heart failure) of 30-35%, down from previous of 45-50% in 2019. Due to this I've started you on a baby aspirin and spironolactone, stopped your potassium supplement and reduced your lisinopril. Please f/u with Dr. Millan for a referral to a director of strategic communications to continue to follow your heart failure. You'll also complete 3 more days of steroids for your RSV, which improves the inflammatory response in the lungs and helps your breathing. Discharge orders & Medications Prescriptions: New prednisone 20 mg tablet 40 mg PO DAILY 3 Days Qty: 6 0RF Rx Instructions: start on 11/02 spironolactone 25 mg tablet 25 mg PO DAILY Qty: 90 0RF Continued warfarin 1 mg tablet 2 mg PO DAILY Qty: 230 3RF Rx Instructions: 2mg Sunday, Sunday and 3mg all other days, or as directed. furosemide 20 mg tablet 20 mg PO BID Qty: 180 3RF atorvastatin 80 mg tablet 80 mg PO BEDTIME Qty: 90 3RF metoprolol succinate 50 mg tablet extended release 24 hr 50 mg PO BID Qty: 180 3RF Changed lisinopril 10 mg tablet 5 mg PO BID Qty: 180 3RF Discontinued potassium chloride 10 mEq tablet extended release 10 meq PO BID Qty: 180 3RF Follow up/Referrals: Roly Millan MD [Primary Care Provider] - 11/14/22 10:00 am (Appt:11/14 @ 10:[address] Millan please arrive 15 min prior to scheduled appointment time ) Visit Report/Discharge Packet Stand Alone Forms: Patient Portal/API, Stroke Signs & Symptoms Discharge Data Primary Care Provider: Roly Millan
== END 2022-11-01 18:55 | disposition home or self-care (01) | DRG 190 ==
LOC: ED 19:51 → AC 22:23
PROVIDERS: Internal Medicine; Admitting Provider Internal Medicine; Emergency Provider Emergency Medicine; PCP Student in an Organized Health Care Education/Training Program; Referring Provider Emergency Medicine; Visit Provider Internal Medicine
DX: J44.1 Chronic obstructive pulmonary disease with (acute) exacerbation (principal); I21.A1 Myocardial infarction type 2; J96.01 Acute respiratory failure with hypoxia; I48.20 Chronic atrial fibrillation, unspecified; I50.20 Unspecified systolic (congestive) heart failure; B97.4 Respiratory syncytial virus as the cause of diseases classified elsewhere; J45.998 Other asthma; I11.0 Hypertensive heart disease with heart failure; F10.10 Alcohol abuse, uncomplicated; Y90.0 Blood alcohol level of less than 20 mg/100 ml; Z87.891 Personal history of nicotine dependence; Z20.822 Contact with and (suspected) exposure to COVID-19; Z79.01 Long term (current) use of anticoagulants; Z86.79 Personal history of other diseases of the circulatory system
CPT/HCPCS: 0241U; 36415; 71045; 71275; 80048; 80053; 80061; 80076; 80320; 83605; 83735; 83880; 84145; 84484; 85025; 85610; 93005; 93306; 94640; 94760; 96365; 96366; 96375; 99285; J2060; J2930; J7613; Q9967

== ENCOUNTER → 2023-01-24 11:27 | Outpatient (CLI) | payer OTHER, SELFPAY ==
[2022-10-31 18:17] VITALS: BMI 20.9
--- NOTE | 2023-01-24 11:28 | DI.RAD.S_ITS ---
PROCEDURE: XR RIBS LT MIN 3V W CXR1V INDICATIONS: Rib pain TECHNIQUE: 2 views of the left ribs were acquired, along with a single view chest. COMPARISON: None. FINDINGS: Surgical changes and devices: None. Bones and chest wall: No fractures or dislocations. No suspicious bony lesions. Overlying soft tissues appear unremarkable. Lungs and pleura: No pleural effusions or pneumothorax. Lungs appear clear. Mediastinum: Mediastinal contours appear normal. Heart size is normal. IMPRESSION: Negative chest and left rib detail films. Dictated by: Anton Snider M.D. on 01/24/2023 at 13:37 Approved by: Anton Snider M.D. on 01/24/2023 at 13:45
== END ==
PROVIDERS: PCP Student in an Organized Health Care Education/Training Program; Referring Provider Nurse Practitioner Family; Visit Provider Nurse Practitioner Family
DX: S29.9XXA Unspecified injury of thorax, initial encounter (principal); X58.XXXA Exposure to other specified factors, initial encounter
CPT/HCPCS: 71101

== ENCOUNTER → 2023-06-08 11:33 | Outpatient (CLI) | payer OTHER, SELFPAY ==
[2022-10-31 18:17] VITALS: BMI 20.9
[2023-06-08 13:46] LABS: Prothrombin Time 91.3 SECONDS (10.1-12.7)
[2023-06-08 16:50] LABS: INR 7.8 (0.9-1.3)
== END ==
PROVIDERS: PCP Pediatrics; Referring Provider Pediatrics; Visit Provider Pediatrics
DX: Z79.01 Long term (current) use of anticoagulants (principal)
CPT/HCPCS: 36415; 85610

== ENCOUNTER → 2023-08-03 11:22 | Outpatient (CLI) | payer OTHER, SELFPAY ==
[2022-10-31 18:17] VITALS: BMI 20.9
[2023-08-03 13:57] LABS: INR 6.6 (0.9-1.3)
== END ==
PROVIDERS: PCP Pediatrics; Referring Provider Family Medicine; Visit Provider Family Medicine
DX: I82.409 Acute embolism and thrombosis of unspecified deep veins of unspecified lower extremity (principal)
CPT/HCPCS: 36415; 85610

== ENCOUNTER 2023-08-07 15:28 | Emergency (ER) | payer OTHER, SELFPAY ==
[2022-10-31 18:17] VITALS: BMI 20.9
[2023-08-07 15:34] VITALS: BP 145/98; PULSE 75; RESP 18; TEMP 36.9; O2SAT 95; BMI 20.6
[2023-08-07] MEDS: IBUPROFEN 400 MG TABLET 600 MG PO (15:56)
--- NOTE | 2023-08-07 16:49 | ED_ITS ---
HPI - Back Pain/Injury <Scout Chavez PA-C - Last Filed: 08/07/23 16:54> General Chief Complaint: Back Pain/Injury Stated Complaint: back pain Time Seen by Provider: 08/07/23 15:42 Source: patient History of Present Illness HPI Narrative: 78-year-old male with past medical history atrial fibrillation, congestive heart failure, hypercholesterolemia, hypertension, peripheral vascular disease, gout, chronic back pain presents to the ED with 3 days of worsening back pain. Patient denies any recent trauma. Patient localizes the pain in the mid and lower back. Patient denies numbness, tingling, weakness, urinary hesitancy, urinary incontinence, bowel incontinence, fever, chills. Patient states that the nature of the pain is the same as prior back aches, just feels more severe this time. Related Data Previous Rx's Medication Instructions Recorded metoprolol succinate 50 mg 50 mg PO BID #180 tabs 06/21/22 tablet,extended release 24 hr lisinopril 10 mg tablet 5 mg (1/2 x 10 mg) PO BID #180 tabs 11/01/22 spironolactone 25 mg tablet 25 mg PO DAILY #90 tabs 02/06/23 warfarin 1 mg tablet 2 mg (2 x 1 mg) PO DAILY #230 tabs 02/16/23 atorvastatin 80 mg tablet 80 mg PO BEDTIME #90 tabs 07/09/23 furosemide 20 mg tablet 20 mg PO BID #180 tabs 08/06/23 cyclobenzaprine 10 mg tablet 10 mg PO TID PRN muscle spasm 5 08/07/23 days #15 tabs Allergies Allergy/AdvReac Type Severity Reaction Status Date / Time No Known Drug Allergies Allergy Verified 08/07/23 15:13 Review of Systems <Scout Chavez PA-C - Last Filed: 08/07/23 16:54> Constitutional Constitutional: Denies chills, Denies fatigue, Denies fever(s), Denies frequent falls, Denies lethargy and Denies weakness Eyes Eyes: Denies change in vision, Denies eye discharge, Denies irritation and Denies loss of vision ENT Ears, Nose, Mouth, and Throat: Denies change in voice, Denies dizziness, Denies neck pain, Denies sore throat and Denies throat swelling Cardiovascular Cardiovascular: Denies chest pain, Denies irregular heart rhythm, Denies lightheadedness, Denies palpitations, Denies dyspnea, Denies dyspnea on exertion and Denies orthopnea Respiratory Respiratory: Denies cough, Denies dyspnea, Denies dyspnea on exertion and Denies wheezing Gastrointestinal Gastrointestinal: Denies abdominal pain, Denies change in bowel habits, Denies diarrhea, Denies nausea and Denies vomiting Musculoskeletal Musculoskeletal: Reports back pain, Denies neck pain and Denies numbness Integumentary/Breasts Skin/Breast: Denies pruritus, Denies erythema, Denies rash and Denies wounds Neurologic Neurologic: Denies behavioral changes, Denies confusion, Denies dizziness, Den ies frequent falls, Denies loss of vision, Denies numbness and Denies weakness Psychiatric Psychiatric: Denies anxiety, Denies behavioral changes, Denies confusion, Denies depression, Denies homicidal ideation and Denies suicidal ideation Endocrine Endocrine: Denies fatigue, Denies flushing and Denies palpitations Hematologic/Lymphatic Hematologic/Lymphatic: Denies easy bruising Allergic/Immunologic Allergic/Immunologic: Denies urticaria, Denies throat swelling and Denies wheezing Patient History <Scout Chavez PA-C - Last Filed: 08/07/23 16:54> Medical History Gout COPD (chronic obstructive pulmonary disease) Peripheral neuropathy Retinal detachment Peripheral vascular disease Essential hypertension (11/01/17) Pure hypercholesterolemia (04/24/16) Systolic congestive heart failure (04/24/16) Atrial fibrillation (04/24/16) Arterial embolism of left leg Surgical History Anesthesia History of surgery History of eye surgery History of cataract removal with insertion of prosthetic lens Family History Father History of heart disease Sister Cancer Social History household members: none Smoking Status: Former smoker Smoking Status: Former smoker alcohol intake frequency: 0-2 drinks per day Substance Use Type: does not use Exam <Scout Chavez PA-C - Last Filed: 08/07/23 16:54> Narrative Exam Narrative: Const General:?cooperative, healthy appearing and comfortable HENMT Head:?normal to inspection Ears:?hearing grossly normal bilaterally Nose:?external nose normal Face and sinus:?normal facial exam and sinuses nontender Mouth:?oral mucosae normal Throat:?posterior oropharynx normal Eyes General:?appearance normal, both eyes and all related structures Neck Neck:?normal visual inspection and no lymphadenopathy noted Resp Effort & Inspection:?normal respiratory effort Auscultation:?clear to auscultation bilaterally Cardio Rate:?regular rate Rhythm:?regular rhythm Musculoskeletal There is some midline tenderness to palpation of the lower thoracic and upper lumbar spine. No paraspinal tenderness to palpation. Patient is neurovascularly intact. Neuro General:?patient alert, patient awake and patient oriented x3 Initial Vital Signs Initial Vital Signs: Vital Signs Temperature 98.5 F 08/07/23 15:34 Pulse Rate 75 08/07/23 15:34 Respiratory Rate 18 08/07/23 15:34 Blood Pressure 145/98 H 08/07/23 15:34 Pulse Oximetry 95 08/07/23 15:34 Oxygen Delivery Method Room Air 08/07/23 15:34 <Edilberto Castillo MD - Last Filed: 08/07/23 18:11> Initial Vital Signs Initial Vital Signs: Vital Signs Temperature 98.5 F 08/07/23 15:34 Pulse Rate 75 08/07/23 15:34 Respiratory Rate 18 08/07/23 15:34 Blood Pressure 145/98 H 08/07/23 15:34 Pulse Oximetry 95 08/07/23 15:34 Oxygen Delivery Method Room Air 08/07/23 15:34 Course <Scout Chavez PA-C - Last Filed: 08/07/23 16:54> Orders Ordered: Discontinued Medications Cyclobenzaprine HCl (Cyclobenzaprine 10 Mg Tablet) 10 mg PO NOW ONE Stop: 08/07/23 15:58 Last Admin: 08/07/23 16:05 Dose: Not Given Documented By: LEAH Ibuprofen (Ibuprofen 400 Mg Tablet) 600 mg PO NOW ONE Stop: 08/07/23 15:51 Last Admin: 08/07/23 15:56 Dose: 600 mg Documented By: JN Vital Signs Vital signs: Vital Signs - 8 hr 08/07/23 15:34 Temperature 98.5 F Pulse Rate 75 Respiratory Rate 18 Blood Pressure 145/98 H Pulse Oximetry 95 Oxygen Delivery Method Room Air <Edilberto Castillo MD - Last Filed: 08/07/23 18:11> Orders Ordered: Discontinued Medications Cyclobenzaprine HCl (Cyclobenzaprine 10 Mg Tablet) 10 mg PO NOW ONE Stop: 08/07/23 15:58 Last Admin: 08/07/23 16:05 Dose: Not Given Documented By: LEAH Ibuprofen (Ibuprofen 400 Mg Tablet) 600 mg PO NOW ONE Stop: 08/07/23 15:51 Last Admin: 08/07/23 15:56 Dose: 600 mg Documented By: NL Vital Signs Vital signs: Vital Signs - 8 hr 08/07/23 15:34 Temperature 98.5 F Pulse Rate 75 Respiratory Rate 18 Blood Pressure 145/98 H Pulse Oximetry 95 Oxygen Delivery Method Room Air MDM - Back Pain/Injury <Scout Chavez PA-C - Last Filed: 08/07/23 16:54> MDM Narrative Medical decision making narrative: 78-year-old male with past medical history atrial fibrillation, congestive heart failure, hypercholesterolemia, hypertension, peripheral vascular disease, gout, chronic back pain presents to the ED with 3 days of worsening back pain. Concern for fracture/dislocation versus musculoskeletal sprain/strain versus other. Will obtain CT lumbar and thoracic spine. Will reassess. Patient declined the CT scans, since he was unable to comfortably be positioned. Patient elected to try ibuprofen and Flexeril for the back pain. Recommend follow-up with PCP as soon as possible. ED return precautions were discussed with patient. Patient verbalized understanding. Medical records reviewed: Yes Discharge Plan Departure Patient Disposition: Home Clinical Impression: Back pain Instructions: DI for Back Strain or Sprain Activity Restrictions/Additional Instructions: You were evaluated in the ED today for back pain. We were unable to get a CT scan of your back since you were unable to be positioned due to your pain. You are being prescribed Flexeril which is a muscle relaxant that you may take 3 times a day as prescribed. Please be aware that this medication might make you feel sleepy and please refrain from driving or operating machinery when taking this medication. You may also take ibuprofen 600 mg 3 times a day with food along with the muscle relaxant. Please follow-up with your PCP as soon as possible. Please return to the ED if you experience any numbness, tingling, weakness, urinary difficulties, worsening symptoms. Prescriptions: New cyclobenzaprine 10 mg tablet 10 mg PO TID PRN (Reason: muscle spasm) 5 Days Qty: 15 0RF No Action spironolactone 25 mg tablet 25 mg PO DAILY Qty: 90 3RF warfarin 1 mg tablet 2 mg PO DAILY Qty: 230 3RF Rx Instructions: 2mg Sunday, Sunday and 3mg all other days, or as directed. atorvastatin 80 mg tablet 80 mg PO BEDTIME Qty: 90 0RF Rx Instructions: PT WILL NEED TO BE SEEN BEFORE NEXT RENEWAL 07/09/23 furosemide 20 mg tablet 20 mg PO BID Qty: 180 0RF metoprolol succinate 50 mg tablet extended release 24 hr 50 mg PO BID Qty: 180 3RF lisinopril 10 mg tablet 5 mg PO BID Qty: 180 3RF Referrals: Alexander Stephen MD [Primary Care Provider] - Stand Alone Forms: Patient Portal/API ED Sign-out <Edilberto Castillo MD - Last Filed: 08/07/23 18:11> Cosign ED Attending Mady Attestation: I was immediately available in the department for consultation. ?This documentation has been reviewed and I agree with assessment and plan. Supervised by Edilberto Castillo MD
== END 2023-08-07 16:25 | disposition home or self-care (01) ==
PROVIDERS: Emergency Provider Student in an Organized Health Care Education/Training Program; PCP Pediatrics
DX: M54.9 Dorsalgia, unspecified (principal)
CPT/HCPCS: 99283; 99284

== ENCOUNTER → 2023-08-20 09:52 | Outpatient (CLI) | payer OTHER, SELFPAY ==
[2022-10-31 18:17] VITALS: BMI 20.9
[2023-08-20 11:54] LABS: Prothrombin Time 58.8 SECONDS (10.1-12.7)
== END ==
PROVIDERS: Internal Medicine; PCP Family Medicine; Referring Provider Family Medicine; Visit Provider Family Medicine
DX: I48.91 Unspecified atrial fibrillation (principal); Z79.01 Long term (current) use of anticoagulants
CPT/HCPCS: 36415; 85610

== ENCOUNTER → 2023-08-23 11:14 | Outpatient (CLI) | payer OTHER, SELFPAY ==
[2022-10-31 18:17] VITALS: BMI 20.9
[2023-08-23 12:46] LABS: Prothrombin Time 76.7 SECONDS (10.1-12.7)
[2023-08-23 12:47] LABS: INR 6.5 (0.9-1.3)
== END ==
PROVIDERS: PCP Family Medicine; Referring Provider Family Medicine; Visit Provider Family Medicine
DX: I82.409 Acute embolism and thrombosis of unspecified deep veins of unspecified lower extremity (principal)
CPT/HCPCS: 36415; 85610

== ENCOUNTER → 2023-11-30 14:03 | Outpatient (CLI) | payer OTHER, SELFPAY ==
[2022-10-31 18:17] VITALS: BMI 20.9
== END ==
LOC: WC 14:07
PROVIDERS: PCP Family Medicine; Referring Provider Family Medicine; Visit Provider Physician Assistant
DX: S91.311A Laceration without foreign body, right foot, initial encounter (principal); S91.111A Laceration without foreign body of right great toe without damage to nail, initial encounter; L53.9 Erythematous condition, unspecified; Z79.01 Long term (current) use of anticoagulants; I73.9 Peripheral vascular disease, unspecified; I11.0 Hypertensive heart disease with heart failure; I48.91 Unspecified atrial fibrillation
CPT/HCPCS: 11042; 97597; 99204; 99213

== ENCOUNTER 2024-01-24 16:25 | Inpatient (IN) | payer OTHER, SELFPAY ==
[2022-10-31 18:17] VITALS: BMI 20.9
[2024-01-24] VITALS (18 sets, daily range): BP systolic 101–129; BP diastolic 66–86; PULSE 68–124; RESP 18–24; TEMP 36.6–36.7; O2SAT 90–95; BMI 20.6
--- NOTE | 2024-01-24 16:42 | DI.CT.S_ITS ---
PROCEDURE: CT HEAD/BRAIN WO CON INDICATIONS: GLF, UNABLE TO AMBULATE, ETOH, ELIQUIS TECHNIQUE: Noncontrast 4.5 mm thick angled axial sections acquired from the foramen magnum to the vertex, with coronal and sagittal reformats. For radiation dose reduction, the following was used: automated exposure control, adjustment of mA and/or kV according to patient size. COMPARISON: None. FINDINGS: Image quality: Diagnostic. CSF spaces: Basal cisterns are patent. No extra-axial fluid collections. The ventricles are symmetric in size and shape. Brain: No intracranial bleeds or masses. There is cerebral volume loss for age, with resultant ventricular and sulcal prominence. There are prominent periventricular and deep white matter chronic small vessel ischemic changes. There is intracranial internal carotid artery atherosclerosis. Skull and face: Calvarium and visualized facial bones appear intact, without suspicious lesions. Left globe prosthesis. Sinuses: Visualized sinuses and mastoids are clear. IMPRESSION: 1. No CT evidence of acute intracranial trauma. 2. No significant soft tissue injury or underlying fracture. 3. Prominent hypodensity of chronic microvascular ischemia through the white matter. Dictated by: Yael Andrew M.D. on 01/24/2024 at 17:34 Approved by: Yael Andrew M.D. on 01/24/2024 at 17:36
--- NOTE | 2024-01-24 16:42 | DI.CT.S_ITS ---
PROCEDURE: CT CERVICAL SPINE WO CON INDICATIONS: GLF, ETOH, ELIQUIS TECHNIQUE: Noncontrast 3 mm thick sections acquired from the skull base to the T4 level. Sagittal and coronal reformats were then constructed. For radiation dose reduction, the following was used: automated exposure control, adjustment of mA and/or kV according to patient size. COMPARISON: [facility], CR, XR RIBS LT MIN 3V W CXR1V, 01/24/2023, 11:24. [facility], CT, CT ANGIO CHEST PE PROTOCOL, 10/30/2022, 20:03. FINDINGS: Image quality: Excellent. Bones: The craniocervical junction is intact. C1-2 alignment is normal. There is trace retrolisthesis C3 on four with severe disc degeneration. Trace retrolisthesis C4 on five with moderate posterior disc degeneration. Otherwise normal vertebral body alignment. No visible acute cervical vertebral body fractures. Prior left anterior 2nd and 3rd rib fracture. Severe compression fracture of T6 resulting in vertebral plana. Soft tissues: Prevertebral soft tissues are normal in thickness. No anterior left chest soft tissue thickening. No paravertebral hematomas. No apical pneumothoraces. Mild centrilobular emphysema. IMPRESSION: No CT evidence of acute cervical spine trauma. Spondylosis and spondylolisthesis C3-4 and C4-5. Severe T6 compression fracture, most likely present on rib from from 01/24/23, but may have progressed in severity. Correlate with point tenderness to exclude acute on chronic injury. Dictated by: Yael Andrew M.D. on 01/24/2024 at 17:36 Approved by: Yael Andrew M.D. on 01/24/2024 at 17:44
--- NOTE | 2024-01-24 16:43 | DI.RAD.S_ITS ---
PROCEDURE: XR CHEST 1V INDICATIONS: GEN WEAKNESS, ETOH TECHNIQUE: One view of the chest was acquired. COMPARISON: [facility], CR, XR CHEST 1V, 10/30/2022, 19:19. FINDINGS: Rotated patient. Surgical changes and devices: None. Lungs and pleura: Hyperinflated lungs with coarse interstitial markings. Thickening the left fissure. No focal consolidation, effusion, or pneumothorax. Mediastinum: Mild, stable cardiomegaly. Normal central vasculature. Bones and chest wall: No suspicious bony lesions. Overlying soft tissues appear unremarkable. IMPRESSION: Changes of chronic emphysema. Dictated by: Yael Andrew M.D. on 01/24/2024 at 18:44 Approved by: Yael Andrew M.D. on 01/24/2024 at 18:45
--- NOTE | 2024-01-24 16:58 | ED.FALL ---
HPI - Fall <Aleida Yadav MD - Last Filed: 01/28/24 23:43> General Chief Complaint: Fall Stated Complaint: fall yesterday, unable to walk today Time Seen by Provider: 01/24/24 16:37 History of Present Illness HPI Narrative: 78-year-old male with history of atrial fibrillation on Eliquis, hypertension, alcohol abuse, COPD presents by private vehicle for generalized weakness. Patient lives by himself, and his daughter frequently calls every night to remind him to take his medications. Last night at 6:00 p.m. the daughter could not get a hold of the patient and came over to check on him at around 9:00 p.m.. Family found him on the floor unable to get up due to generalized weakness. Patient has bruising on his left face. Daughter at bedside states that they found a half empty bottle of whiskey on the table near where he fell. Per daughter at bedside the patient was initially very reluctant to come to the emergency department and wanted to stay home. Daughter states that they stayed the night with the patient, fed him, gave him water, but he continued to be very weak and unable to ambulate at all today and so they decided to present for evaluation. Related Data Previous Rx's Medication Instructions Recorded lisinopril 10 mg tablet 5 mg (1/2 x 10 mg) PO BID #180 tabs 11/01/22 spironolactone 25 mg tablet 25 mg PO DAILY #90 tabs 02/06/23 metoprolol succinate 50 mg 50 mg PO BID #180 tabs 08/10/23 tablet,extended release 24 hr apixaban 2.5 mg tablet (Eliquis) 2.5 mg PO BID #60 tabs 08/27/23 atorvastatin 80 mg tablet 80 mg PO BEDTIME #30 tabs 10/24/23 furosemide 20 mg tablet 20 mg PO BID #180 tabs 11/12/23 Allergies Allergy/AdvReac Type Severity Reaction Status Date / Time lorazepam AdvReac Severe GOES Verified 01/27/24 10:44 CRAZY FOR NEXT 2 WEEKS Review of Systems <Aleida Yadav MD - Last Filed: 01/28/24 23:43> Review of Systems Narrative: Negative except as noted above Patient History <Aleida Yadav MD - Last Filed: 01/28/24 23:43> Medical History Gout COPD (chronic obstructive pulmonary disease) Peripheral neuropathy Retinal detachment Peripheral vascular disease Essential hypertension (11/01/17) Pure hypercholesterolemia (04/24/16) Systolic congestive heart failure (04/24/16) Atrial fibrillation (04/24/16) Arterial embolism of left leg Surgical History Anesthesia History of surgery History of eye surgery History of cataract removal with insertion of prosthetic lens Family History Father History of heart disease Sister Cancer Social History household members: none Smoking Status: Former smoker alcohol intake: current Smoking Status: Former smoker alcohol intake frequency: 0-2 drinks per day Substance Use Type: does not use Exam <Aleida Yadav MD - Last Filed: 01/28/24 23:43> Initial Vital Signs Initial Vital Signs: Vital Signs Temperature 97.8 F 01/24/24 16:43 Pulse Rate 107 H 01/24/24 16:43 Respiratory Rate 20 01/24/24 16:43 Blood Pressure 123/71 01/24/24 16:43 Pulse Oximetry 91 01/24/24 16:43 Oxygen Delivery Method Room Air 01/24/24 16:43 Const: Awake, alert, debilitated, frail Cardiac: Irregularly irregular rhythm RESP: unlabored, clear bilaterally, no wheezing GI: Soft, nontender, nondistended, no rebound, no guarding MSK: Atraumatic, full range of motion, pulses equal Skin: Warm, Dry, bruising over left druze Neuro: AO x3, CN II-XII grossly intact, 2/5 strength lower extremities bilaterally, able to pedal feet <Brian Dominguez MD - Last Filed: 01/24/24 20:48> Initial Vital Signs Initial Vital Signs: Vital Signs Temperature 97.8 F 01/24/24 16:43 Pulse Rate 107 H 01/24/24 16:43 Respiratory Rate 20 01/24/24 16:43 Blood Pressure 123/71 01/24/24 16:43 Pulse Oximetry 91 01/24/24 16:43 Oxygen Delivery Method Room Air 01/24/24 16:43 Course <Aleida Yadav MD - Last Filed: 01/28/24 23:43> Orders Ordered: Acetaminophen (Acetaminophen 325 Mg Tablet) 650 mg PO Q6H PRN PRN Reason: Fever/Mild Pain (1-3) Hydrocodone Bitart/Acetaminophen (Hydrocodone/Acet 5/325 Tablet) 1 tab PO Q6HR PRN PRN Reason: Pain, Moderate (4-6) Last Admin: 01/26/24 09:15 Dose: 1 tab Documented By: Admin: 01/25/24 16:22 Dose: 1 tab Documented By: Admin: 01/25/24 08:57 Dose: 1 tab Documented By: Admin: 01/25/24 00:40 Dose: 1 tab Documented By: FREEMAN Atorvastatin Calcium (Atorvastatin 20 Mg Tablet) 80 mg PO BEDTIME [facility] Last Admin: 01/26/24 20:37 Dose: Not Given Documented By: Admin: 01/25/24 21:15 Dose: 80 mg Documented By: Enoxaparin Sodium (Enoxaparin 60 Mg/0.6 Ml Syringe) 60 mg SUBCUT BID [facility] Last Admin: 01/28/24 20:53 Dose: 60 mg Documented By: Admin: 01/28/24 08:39 Dose: 60 mg Documented By: Admin: 01/27/24 21:29 Dose: 60 mg Documented By: Admin: 01/27/24 11:53 Dose: 60 mg Documented By: MS(2) Haloperidol (Haloperidol 5 Mg/Ml Vial) 2 mg IV Q1H PRN PRN Reason: Agitation Last Admin: 01/27/24 08:12 Dose: 2 mg Documented By: MS(2) Hydromorphone HCl (Hydromorphone 1 Mg Inj) 1 mg IV Q3H PRN PRN Reason: Pain, Moderate (4-6) Last Admin: 01/28/24 18:23 Dose: 1 mg Documented By: Admin: 01/28/24 09:48 Dose: 1 mg Documented By: Admin: 01/28/24 01:22 Dose: 1 mg Documented By: Admin: 01/27/24 21:26 Dose: 1 mg Documented By: Admin: 01/27/24 09:10 Dose: 1 mg Documented By: MS(2) Hydromorphone HCl (Hydromorphone 2 Mg Inj) 2 mg IV Q2H PRN PRN Reason: Pain, Severe (7-10) Last Admin: 01/27/24 11:29 Dose: 2 mg Documented By: MS(2) dexmedeTOMIDine in 0.9 % NaCL (Precedex) 400 mcg in 100 mls @ 2.903 mls/hr IV TITRATE FRANKO; Protocol Last Admin: 01/28/24 16:34 Dose: 1 mcg/kg/hr, 14.515 mls/hr Documented By: Titration: 01/28/24 16:34 Dose: Infused Documented By: Titration: 01/28/24 12:08 Dose: 1.2 mcg/kg/hr, 17.418 mls/hr Documented By: Admin: 01/28/24 11:37 Dose: 0.6 mcg/kg/hr, 8.709 mls/hr Documented By: Titration: 01/28/24 11:37 Dose: Infused Documented By: Admin: 01/28/24 01:23 Dose: 0.6 mcg/kg/hr, 8.709 mls/hr Documented By: Titration: 01/28/24 01:23 Dose: Infused Documented By: Titration: 01/27/24 15:47 Dose: 0.6 mcg/kg/hr, 8.709 mls/hr Documented By: MS(2) Admin: 01/27/24 14:23 Dose: 0.8 mcg/kg/hr, 11.612 mls/hr Documented By: MS(2) Titration: 01/27/24 14:23 Dose: Infused Documented By: MS(2) Admin: 01/27/24 08:13 Dose: 1 mcg/kg/hr, 14.515 mls/hr Documented By: MS(2) Titration: 01/27/24 08:13 Dose: Infused Documented By: MS(2) Titration: 01/26/24 22:31 Dose: 0.4 mcg/kg/hr, 5.806 mls/hr Documented By: Titration: 01/26/24 22:02 Dose: 0.2 mcg/kg/hr, 2.903 mls/hr Documented By: Titration: 01/26/24 21:04 Dose: 0 mcg/kg/hr, 0 mls/hr Documented By: Admin: 01/26/24 19:39 Dose: 0.2 mcg/kg/hr, 2.903 mls/hr Documented By: MS(2) NOREPINEPHRINE BITARTRATE/D5W (Levophed) 4 mg in 250 mls @ 21.773 mls/hr IV TITRATE FRANKO; Protocol Last Titration: 01/28/24 08:45 Dose: 0 mcg/kg/min, 0 mls/hr Documented By: Titration: 01/28/24 01:52 Dose: 0.03 mcg/kg/min, 6.532 mls/hr Documented By: Titration: 01/27/24 23:17 Dose: 0 mcg/kg/min, 0 mls/hr Documented By: Titration: 01/27/24 21:46 Dose: 0.02 mcg/kg/min, 4.355 mls/hr Documented By: Titration: 01/27/24 20:35 Dose: 0.05 mcg/kg/min, 10.886 mls/hr Documented By: Admin: 01/27/24 10:55 Dose: 0.08 mcg/kg/min, 17.418 mls/hr Documented By: MS(2) Titration: 01/27/24 10:31 Dose: Infused Documented By: MS(2) Titration: 01/27/24 02:46 Dose: 0.08 mcg/kg/min, 17.418 mls/hr Documented By: Titration: 01/26/24 21:55 Dose: 0.1 mcg/kg/min, 21.773 mls/hr Documented By: Admin: 01/26/24 21:29 Dose: 0.1 mcg/kg/min, 21.773 mls/hr Documented By: JT Piperacillin Sod/Tazobactam (Sod 3.375 gm/ Sodium Chloride) 100 mls @ 25 mls/hr IV Q8H [facility] Last Admin: 01/28/24 21:18 Dose: 25 mls/hr Documented By: Infusion: 01/28/24 18:24 Dose: Infused Documented By: Admin: 01/28/24 14:13 Dose: 25 mls/hr Documented By: Infusion: 01/28/24 09:53 Dose: Infused Documented By: Admin: 01/28/24 05:54 Dose: 25 mls/hr Documented By: Infusion: 01/28/24 01:38 Dose: Infused Documented By: Admin: 01/27/24 21:38 Dose: 25 mls/hr Documented By: Infusion: 01/27/24 18:23 Dose: Infused Documented By: Admin: 01/27/24 14:23 Dose: 25 mls/hr Documented By: MS(2) Dextrose/Sodium Chloride (Dextrose 5%-0.9% Ns) 1,000 mls @ 60 mls/hr IV CONT [facility] Last Admin: 01/28/24 18:23 Dose: 60 mls/hr Documented By: Infusion: 01/28/24 18:04 Dose: Infused Documented By: Admin: 01/28/24 01:23 Dose: 60 mls/hr Documented By: Infusion: 01/28/24 01:23 Dose: Infused Documented By: Admin: 01/27/24 09:47 Dose: 60 mls/hr Documented By: MS(2) Thiamine HCl 100 mg/ Sodium (Chloride) 101 mls @ 404 mls/hr IV TID [facility] Last Admin: 01/28/24 20:52 Dose: 404 mls/hr Documented By: Infusion: 01/28/24 14:30 Dose: Infused Documented By: Admin: 01/28/24 14:02 Dose: 404 mls/hr Documented By: Infusion: 01/28/24 09:53 Dose: Infused Documented By: Admin: 01/28/24 08:56 Dose: 404 mls/hr Documented By: Infusion: 01/28/24 08:39 Dose: Infused Documented By: Admin: 01/27/24 21:29 Dose: 404 mls/hr Documented By: Infusion: 01/27/24 16:06 Dose: Infused Documented By: Admin: 01/27/24 15:51 Dose: 404 mls/hr Documented By: MS(2) Infusion: 01/27/24 11:37 Dose: Infused Documented By: MS(2) Admin: 01/27/24 11:22 Dose: 404 mls/hr Documented By: MS(2) Folic Acid 1 mg/ Sodium (Chloride) 100.2 mls @ 200.4 mls/hr IV DAILY [facility] Last Infusion: 01/28/24 09:53 Dose: Infused Documented By: Admin: 01/28/24 08:39 Dose: 200.4 mls/hr Documented By: Infusion: 01/27/24 11:52 Dose: Infused Documented By: (2) Admin: 01/27/24 11:22 Dose: 200.4 mls/hr Documented By: [email or web address]) Melatonin (Melatonin 3 Mg Tablet) 6 mg PO BEDTIME [facility] Last Admin: 01/28/24 20:48 Dose: Not Given Documented By: Multivitamins (Multivitamin 1 Tablet) 1 tab PO DAILY [facility] Last Admin: 01/27/24 11:05 Dose: Not Given Documented By: BABAR2) Admin: 01/26/24 09:15 Dose: 1 tab Documented By: Admin: 01/25/24 08:57 Dose: 1 tab Documented By: QING Nicotine (Nicotine 14 Patch) 14 mg TOP DAILY [facility] Last Admin: 01/28/24 08:56 Dose: Not Given Documented By: Admin: 01/27/24 09:36 Dose: Not Given Documented By: (2) Admin: 01/26/24 09:16 Dose: 14 mg Documented By: Admin: 01/25/24 15:01 Dose: 14 mg Documented By: QING Ondansetron HCl (Ondansetron 4 Mg/2 Ml Inj) 4 mg IV Q6HR PRN PRN Reason: Nausea And Vomiting Last Admin: 01/26/24 18:06 Dose: 4 mg Documented By: QING Phenobarbital (Phenobarbital 65 Mg/Ml Vial) 65 mg IV Q6HR PRN PRN Reason: Agitation Last Admin: 01/28/24 22:44 Dose: 65 mg Documented By: Admin: 01/28/24 16:30 Dose: 65 mg Documented By: DIANN Discontinued Medications Albuterol/Ipratropium (Albuterol/Ipratropium 3 Ml Ampul) 6 ml INH NOW ONE Stop: 01/24/24 18:45 Last Admin: 01/24/24 18:50 Dose: 6 ml Documented By: DANAY Apixaban (Apixaban 5 Mg Tablet) 2.5 mg PO BID [facility] Last Admin: 01/26/24 20:36 Dose: Not Given Documented By: Admin: 01/26/24 09:16 Dose: 2.5 mg Documented By: Admin: 01/25/24 21:15 Dose: 2.5 mg Documented By: Admin: 01/25/24 08:56 Dose: 2.5 mg Documented By: QING Digoxin (Digoxin 500 Mcg/2 Ml Ampul) 250 mcg IV NOW ONE Stop: 01/26/24 19:08 Last Admin: 01/26/24 19:39 Dose: 250 mcg Documented By: [email or web address]) Enoxaparin Sodium (Enoxaparin 40 Mg/0.4 Ml Syringe) 40 mg SUBCUT DAILY [facility] Folic Acid (Folic Acid 1 Mg Tablet) 1 mg PO NOW ONE Stop: 01/24/24 16:43 Last Admin: 01/24/24 17:02 Dose: 1 mg Documented By: ELSIE Folic Acid (Folic Acid 1 Mg Tablet) 1 mg PO DAILY [facility] Last Admin: 01/27/24 11:50 Dose: Not Given Documented By: (2) Admin: 01/26/24 09:15 Dose: 1 mg Documented By: Admin: 01/25/24 08:57 Dose: 1 mg Documented By: QING Furosemide (Furosemide 40 Mg/4 Ml Vial) 40 mg IV NOW ONE Stop: 01/26/24 19:09 Last Admin: 01/26/24 19:38 Dose: 40 mg Documented By: (2) Sodium Chloride (Normal Saline 0.9%) 1,000 mls @ 1,000 mls/hr IV BOLUS ONE Stop: 01/24/24 17:41 Last Infusion: 01/24/24 19:30 Dose: Infused Documented By: Admin: 01/24/24 17:01 Dose: 1,000 mls/hr Documented By: ELSIE Thiamine HCl 200 mg/ Sodium (Chloride) 102 mls @ 408 mls/hr IV NOW ONE Stop: 01/24/24 16:43 Last Infusion: 01/24/24 17:43 Dose: Infused Documented By: Admin: 01/24/24 17:01 Dose: 408 mls/hr Documented By: ELSIE Magnesium Sulfate (Magnesium Sulfate) 2 gm in 50 mls @ 25 mls/hr IV NOW ONE Stop: 01/24/24 19:23 Last Infusion: 01/24/24 20:08 Dose: Infused Documented By: DEANDRA Co-signed By: FABIANA Admin: 01/24/24 18:07 Dose: 25 mls/hr Documented By: DEANDRA Co-signed By: FABIANA Sodium Chloride (Normal Saline 0.9%) 1,000 mls @ 100 mls/hr IV CONT [facility] Stop: 01/25/24 07:15 Last Admin: 01/25/24 06:35 Dose: 100 mls/hr Documented By: Infusion: 01/25/24 06:35 Dose: Infused Documented By: Admin: 01/25/24 00:33 Dose: 100 mls/hr Documented By: FREEMAN Ceftriaxone Sodium 1,000 mg/ (Sodium Chloride) 100 mls @ 200 mls/hr IV Q24H [facility] Last Infusion: 01/26/24 16:15 Dose: Infused Documented By: Admin: 01/26/24 15:45 Dose: 200 mls/hr Documented By: QING Piperacillin Sod/Tazobactam (Sod 4.5 gm/ Sodium Chloride) 100 mls @ 25 mls/hr IV Q8H [facility] Last Infusion: 01/27/24 01:36 Dose: Infused Documented By: Admin: 01/26/24 21:36 Dose: 25 mls/hr Documented By: RAJESH Piperacillin Sod/Tazobactam (Sod 4.5 gm/ Sodium Chloride) 100 mls @ 25 mls/hr IV Q8H [facility] Stop: 01/27/24 10:00 Last Infusion: 01/27/24 09:46 Dose: Infused Documented By: (2) Admin: 01/27/24 05:46 Dose: 25 mls/hr Documented By: RAJESH Thiamine HCl 100 mg/ Sodium (Chloride) 101 mls @ 404 mls/hr IV DAILY [facility] Last Admin: 01/27/24 11:50 Dose: Not Given Documented By: MS(2) Lisinopril (Lisinopril 5 Mg Tablet) 5 mg PO DAILY [facility] Last Admin: 01/26/24 09:16 Dose: 5 mg Documented By: Admin: 01/25/24 08:57 Dose: 5 mg Documented By: QING Lorazepam (Lorazepam 1 Mg Tablet) 0 mg PO CIWAPRN PRN; Protocol PRN Reason: Alcohol Withdrawal Last Admin: 01/26/24 12:20 Dose: 1 mg Documented By: Admin: 01/26/24 02:24 Dose: 1 mg Documented By: Admin: 01/25/24 16:22 Dose: 1 mg Documented By: Admin: 01/25/24 01:04 Dose: 1 mg Documented By: FREEMAN Lorazepam (Lorazepam 2 Mg/Ml Inj) 0 mg IV CIWAPRN PRN; Protocol PRN Reason: Alcohol Withdrawal Metoprolol Succinate (Metoprolol Er 50 Mg Tablet) 50 mg PO BID [facility] Last Admin: 01/26/24 09:15 Dose: 50 mg Documented By: Admin: 01/25/24 21:16 Dose: 50 mg Documented By: Admin: 01/25/24 08:56 Dose: 50 mg Documented By: QING Morphine Sulfate (Morphine 2 Mg/Ml Inj) 2 mg IV NOW ONE Stop: 01/26/24 22:53 Last Admin: 01/26/24 23:00 Dose: 2 mg Documented By: RAJESH Morphine Sulfate (Morphine 2 Mg/Ml Inj) 2 mg IV NOW ONE Stop: 01/27/24 03:50 Last Admin: 01/27/24 04:05 Dose: 2 mg Documented By: RAJESH Potassium Chloride (Potassium Chloride 20 Meq Tab) 40 meq PO NOW ONE Stop: 01/25/24 07:46 Last Admin: 01/25/24 09:06 Dose: 40 meq Documented By: QING Thiamine HCl (Thiamine 100 Mg Tablet) 100 mg PO DAILY [facility] Stop: 01/28/24 09:01 Last Admin: 01/26/24 09:16 Dose: 100 mg Documented By: Admin: 01/25/24 08:57 Dose: 100 mg Documented By: QING Vital Signs Vital signs: Vital Signs - 8 hr 01/24/24 16:43 01/24/24 16:51 01/24/24 17:20 Temperature 97.8 F Pulse Rate 107 H 118 H 118 H Respiratory Rate 20 21 Blood Pressure 123/71 Pulse Oximetry 91 93 92 Oxygen Delivery Method Room Air Room Air Room Air Oxygen Flow Rate Fraction of Inspired Oxygen 01/24/24 17:28 01/24/24 17:28 01/24/24 17:30 Temperature Pulse Rate 124 H Respiratory Rate 22 Blood Pressure 101/71 106/66 Pulse Oximetry 92 Oxygen Delivery Method Room Air Oxygen Flow Rate Fraction of Inspired Oxygen 01/24/24 17:30 01/24/24 18:00 01/24/24 18:00 Temperature Pulse Rate 119 H 123 H Respiratory Rate 20 18 Blood Pressure 114/76 Pulse Oximetry 93 92 Oxygen Delivery Method Room Air Room Air Oxygen Flow Rate Fraction of Inspired Oxygen 01/24/24 18:30 01/24/24 18:50 01/24/24 19:00 Temperature Pulse Rate 117 H 117 H 123 H Respiratory Rate 22 20 Blood Pressure Pulse Oximetry 92 92 95 Oxygen Delivery Method Room Air Room Air Oxygen Flow Rate 0 Fraction of Inspired Oxygen 21 01/24/24 19:30 Temperature Pulse Rate 107 H Respiratory Rate Blood Pressure Pulse Oximetry 92 Oxygen Delivery Method Oxygen Flow Rate Fraction of Inspired Oxygen <Brian Dominguez MD - Last Filed: 01/24/24 20:48> Orders Ordered: Acetaminophen (Acetaminophen 325 Mg Tablet) 650 mg PO Q6H PRN PRN Reason: Fever/Mild Pain (1-3) Hydrocodone Bitart/Acetaminophen (Hydrocodone/Acet 5/325 Tablet) 1 tab PO Q6HR PRN PRN Reason: Pain, Moderate (4-6) Last Admin: 01/26/24 09:15 Dose: 1 tab Documented By: Admin: 01/25/24 16:22 Dose: 1 tab Documented By: Admin: 01/25/24 08:57 Dose: 1 tab Documented By: Admin: 01/25/24 00:40 Dose: 1 tab Documented By: FREEMAN Atorvastatin Calcium (Atorvastatin 20 Mg Tablet) 80 mg PO BEDTIME [facility] Last Admin: 01/26/24 20:37 Dose: Not Given Documented By: Admin: 01/25/24 21:15 Dose: 80 mg Documented By: Enoxaparin Sodium (Enoxaparin 60 Mg/0.6 Ml Syringe) 60 mg SUBCUT BID [facility] Last Admin: 01/28/24 20:53 Dose: 60 mg Documented By: Admin: 01/28/24 08:39 Dose: 60 mg Documented By: Admin: 01/27/24 21:29 Dose: 60 mg Documented By: Admin: 01/27/24 11:53 Dose: 60 mg Documented By: (2) Haloperidol (Haloperidol 5 Mg/Ml Vial) 2 mg IV Q1H PRN PRN Reason: Agitation Last Admin: 01/27/24 08:12 Dose: 2 mg Documented By: (2) Hydromorphone HCl (Hydromorphone 1 Mg Inj) 1 mg IV Q3H PRN PRN Reason: Pain, Moderate (4-6) Last Admin: 01/28/24 18:23 Dose: 1 mg Documented By: Admin: 01/28/24 09:48 Dose: 1 mg Documented By: Admin: 01/28/24 01:22 Dose: 1 mg Documented By: Admin: 01/27/24 21:26 Dose: 1 mg Documented By: Admin: 01/27/24 09:10 Dose: 1 mg Documented By: MS(2) Hydromorphone HCl (Hydromorphone 2 Mg Inj) 2 mg IV Q2H PRN PRN Reason: Pain, Severe (7-10) Last Admin: 01/27/24 11:29 Dose: 2 mg Documented By: MS(2) dexmedeTOMIDine in 0.9 % NaCL (Precedex) 400 mcg in 100 mls @ 2.903 mls/hr IV TITRATE FRANKO; Protocol Last Admin: 01/28/24 16:34 Dose: 1 mcg/kg/hr, 14.515 mls/hr Documented By: Titration: 01/28/24 16:34 Dose: Infused Documented By: Titration: 01/28/24 12:08 Dose: 1.2 mcg/kg/hr, 17.418 mls/hr Documented By: Admin: 01/28/24 11:37 Dose: 0.6 mcg/kg/hr, 8.709 mls/hr Documented By: Titration: 01/28/24 11:37 Dose: Infused Documented By: Admin: 01/28/24 01:23 Dose: 0.6 mcg/kg/hr, 8.709 mls/hr Documented By: Titration: 01/28/24 01:23 Dose: Infused Documented By: Titration: 01/27/24 15:47 Dose: 0.6 mcg/kg/hr, 8.709 mls/hr Documented By: MS(2) Admin: 01/27/24 14:23 Dose: 0.8 mcg/kg/hr, 11.612 mls/hr Documented By: MS(2) Titration: 01/27/24 14:23 Dose: Infused Documented By: MS(2) Admin: 01/27/24 08:13 Dose: 1 mcg/kg/hr, 14.515 mls/hr Documented By: MS(2) Titration: 01/27/24 08:13 Dose: Infused Documented By: MS(2) Titration: 01/26/24 22:31 Dose: 0.4 mcg/kg/hr, 5.806 mls/hr Documented By: Titration: 01/26/24 22:02 Dose: 0.2 mcg/kg/hr, 2.903 mls/hr Documented By: Titration: 01/26/24 21:04 Dose: 0 mcg/kg/hr, 0 mls/hr Documented By: Admin: 01/26/24 19:39 Dose: 0.2 mcg/kg/hr, 2.903 mls/hr Documented By: MS(2) NOREPINEPHRINE BITARTRATE/D5W (Levophed) 4 mg in 250 mls @ 21.773 mls/hr IV TITRATE FRANKO; Protocol Last Titration: 01/28/24 08:45 Dose: 0 mcg/kg/min, 0 mls/hr Documented By: Titration: 01/28/24 01:52 Dose: 0.03 mcg/kg/min, 6.532 mls/hr Documented By: Titration: 01/27/24 23:17 Dose: 0 mcg/kg/min, 0 mls/hr Documented By: Titration: 01/27/24 21:46 Dose: 0.02 mcg/kg/min, 4.355 mls/hr Documented By: Titration: 01/27/24 20:35 Dose: 0.05 mcg/kg/min, 10.886 mls/hr Documented By: Admin: 01/27/24 10:55 Dose: 0.08 mcg/kg/min, 17.418 mls/hr Documented By: MS(2) Titration: 01/27/24 10:31 Dose: Infused Documented By: MS(2) Titration: 01/27/24 02:46 Dose: 0.08 mcg/kg/min, 17.418 mls/hr Documented By: Titration: 01/26/24 21:55 Dose: 0.1 mcg/kg/min, 21.773 mls/hr Documented By: Admin: 01/26/24 21:29 Dose: 0.1 mcg/kg/min, 21.773 mls/hr Documented By: RAJESH Piperacillin Sod/Tazobactam (Sod 3.375 gm/ Sodium Chloride) 100 mls @ 25 mls/hr IV Q8H [facility] Last Admin: 01/28/24 21:18 Dose: 25 mls/hr Documented By: Infusion: 01/28/24 18:24 Dose: Infused Documented By: Admin: 01/28/24 14:13 Dose: 25 mls/hr Documented By: Infusion: 01/28/24 09:53 Dose: Infused Documented By: Admin: 01/28/24 05:54 Dose: 25 mls/hr Documented By: Infusion: 01/28/24 01:38 Dose: Infused Documented By: Admin: 01/27/24 21:38 Dose: 25 mls/hr Documented By: Infusion: 01/27/24 18:23 Dose: Infused Documented By: Admin: 01/27/24 14:23 Dose: 25 mls/hr Documented By: MS(2) Dextrose/Sodium Chloride (Dextrose 5%-0.9% Ns) 1,000 mls @ 60 mls/hr IV CONT [facility] Last Admin: 01/28/24 18:23 Dose: 60 mls/hr Documented By: Infusion: 01/28/24 18:04 Dose: Infused Documented By: Admin: 01/28/24 01:23 Dose: 60 mls/hr Documented By: Infusion: 01/28/24 01:23 Dose: Infused Documented By: Admin: 01/27/24 09:47 Dose: 60 mls/hr Documented By: MS(2) Thiamine HCl 100 mg/ Sodium (Chloride) 101 mls @ 404 mls/hr IV TID [facility] Last Admin: 01/28/24 20:52 Dose: 404 mls/hr Documented By: Infusion: 01/28/24 14:30 Dose: Infused Documented By: Admin: 01/28/24 14:02 Dose: 404 mls/hr Documented By: Infusion: 01/28/24 09:53 Dose: Infused Documented By: Admin: 01/28/24 08:56 Dose: 404 mls/hr Documented By: Infusion: 01/28/24 08:39 Dose: Infused Documented By: Admin: 01/27/24 21:29 Dose: 404 mls/hr Documented By: Infusion: 01/27/24 16:06 Dose: Infused Documented By: Admin: 01/27/24 15:51 Dose: 404 mls/hr Documented By: (2) Infusion: 01/27/24 11:37 Dose: Infused Documented By: MS(2) Admin: 01/27/24 11:22 Dose: 404 mls/hr Documented By: (2) Folic Acid 1 mg/ Sodium (Chloride) 100.2 mls @ 200.4 mls/hr IV DAILY [facility] Last Infusion: 01/28/24 09:53 Dose: Infused Documented By: Admin: 01/28/24 08:39 Dose: 200.4 mls/hr Documented By: Infusion: 01/27/24 11:52 Dose: Infused Documented By: MS(2) Admin: 01/27/24 11:22 Dose: 200.4 mls/hr Documented By: (2) Melatonin (Melatonin 3 Mg Tablet) 6 mg PO BEDTIME [facility] Last Admin: 01/28/24 20:48 Dose: Not Given Documented By: Multivitamins (Multivitamin 1 Tablet) 1 tab PO DAILY [facility] Last Admin: 01/27/24 11:05 Dose: Not Given Documented By: (2) Admin: 01/26/24 09:15 Dose: 1 tab Documented By: Admin: 01/25/24 08:57 Dose: 1 tab Documented By: QING Nicotine (Nicotine 14 Patch) 14 mg TOP DAILY [facility] Last Admin: 01/28/24 08:56 Dose: Not Given Documented By: Admin: 01/27/24 09:36 Dose: Not Given Documented By: (2) Admin: 01/26/24 09:16 Dose: 14 mg Documented By: Admin: 01/25/24 15:01 Dose: 14 mg Documented By: QING Ondansetron HCl (Ondansetron 4 Mg/2 Ml Inj) 4 mg IV Q6HR PRN PRN Reason: Nausea And Vomiting Last Admin: 01/26/24 18:06 Dose: 4 mg Documented By: QING Phenobarbital (Phenobarbital 65 Mg/Ml Vial) 65 mg IV Q6HR PRN PRN Reason: Agitation Last Admin: 01/28/24 22:44 Dose: 65 mg Documented By: Admin: 01/28/24 16:30 Dose: 65 mg Documented By: DIANN Discontinued Medications Albuterol/Ipratropium (Albuterol/Ipratropium 3 Ml Ampul) 6 ml INH NOW ONE Stop: 01/24/24 18:45 Last Admin: 01/24/24 18:50 Dose: 6 ml Documented By: DANAY Apixaban (Apixaban 5 Mg Tablet) 2.5 mg PO BID [facility] Last Admin: 01/26/24 20:36 Dose: Not Given Documented By: Admin: 01/26/24 09:16 Dose: 2.5 mg Documented By: Admin: 01/25/24 21:15 Dose: 2.5 mg Documented By: Admin: 01/25/24 08:56 Dose: 2.5 mg Documented By: QING Digoxin (Digoxin 500 Mcg/2 Ml Ampul) 250 mcg IV NOW ONE Stop: 01/26/24 19:08 Last Admin: 01/26/24 19:39 Dose: 250 mcg Documented By: (2) Enoxaparin Sodium (Enoxaparin 40 Mg/0.4 Ml Syringe) 40 mg SUBCUT DAILY [facility] Folic Acid (Folic Acid 1 Mg Tablet) 1 mg PO NOW ONE Stop: 01/24/24 16:43 Last Admin: 01/24/24 17:02 Dose: 1 mg Documented By: ELSIE Folic Acid (Folic Acid 1 Mg Tablet) 1 mg PO DAILY [facility] Last Admin: 01/27/24 11:50 Dose: Not Given Documented By: MS(2) Admin: 01/26/24 09:15 Dose: 1 mg Documented By: Admin: 01/25/24 08:57 Dose: 1 mg Documented By: QING Furosemide (Furosemide 40 Mg/4 Ml Vial) 40 mg IV NOW ONE Stop: 01/26/24 19:09 Last Admin: 01/26/24 19:38 Dose: 40 mg Documented By: MS(2) Sodium Chloride (Normal Saline 0.9%) 1,000 mls @ 1,000 mls/hr IV BOLUS ONE Stop: 01/24/24 17:41 Last Infusion: 01/24/24 19:30 Dose: Infused Documented By: Admin: 01/24/24 17:01 Dose: 1,000 mls/hr Documented By: ELSIE Thiamine HCl 200 mg/ Sodium (Chloride) 102 mls @ 408 mls/hr IV NOW ONE Stop: 01/24/24 16:43 Last Infusion: 01/24/24 17:43 Dose: Infused Documented By: Admin: 01/24/24 17:01 Dose: 408 mls/hr Documented By: ELSIE Magnesium Sulfate (Magnesium Sulfate) 2 gm in 50 mls @ 25 mls/hr IV NOW ONE Stop: 01/24/24 19:23 Last Infusion: 01/24/24 20:08 Dose: Infused Documented By: DEANDRA Co-signed By: FABIANA Admin: 01/24/24 18:07 Dose: 25 mls/hr Documented By: DEANDRA Co-signed By: FABIANA Sodium Chloride (Normal Saline 0.9%) 1,000 mls @ 100 mls/hr IV CONT FRANKO Stop: 01/25/24 07:15 Last Admin: 01/25/24 06:35 Dose: 100 mls/hr Documented By: Infusion: 01/25/24 06:35 Dose: Infused Documented By: Admin: 01/25/24 00:33 Dose: 100 mls/hr Documented By: FREEMAN Ceftriaxone Sodium 1,000 mg/ (Sodium Chloride) 100 mls @ 200 mls/hr IV Q24H [facility] Last Infusion: 01/26/24 16:15 Dose: Infused Documented By: Admin: 01/26/24 15:45 Dose: 200 mls/hr Documented By: QING Piperacillin Sod/Tazobactam (Sod 4.5 gm/ Sodium Chloride) 100 mls @ 25 mls/hr IV Q8H [facility] Last Infusion: 01/27/24 01:36 Dose: Infused Documented By: Admin: 01/26/24 21:36 Dose: 25 mls/hr Documented By: RAJESH Piperacillin Sod/Tazobactam (Sod 4.5 gm/ Sodium Chloride) 100 mls @ 25 mls/hr IV Q8H [facility] Stop: 01/27/24 10:00 Last Infusion: 01/27/24 09:46 Dose: Infused Documented By: CONY) Admin: 01/27/24 05:46 Dose: 25 mls/hr Documented By: RAJESH Thiamine HCl 100 mg/ Sodium (Chloride) 101 mls @ 404 mls/hr IV DAILY [facility] Last Admin: 01/27/24 11:50 Dose: Not Given Documented By: MS(2) Lisinopril (Lisinopril 5 Mg Tablet) 5 mg PO DAILY [facility] Last Admin: 01/26/24 09:16 Dose: 5 mg Documented By: Admin: 01/25/24 08:57 Dose: 5 mg Documented By: QING Lorazepam (Lorazepam 1 Mg Tablet) 0 mg PO CIWAPRN PRN; Protocol PRN Reason: Alcohol Withdrawal Last Admin: 01/26/24 12:20 Dose: 1 mg Documented By: Admin: 01/26/24 02:24 Dose: 1 mg Documented By: Admin: 01/25/24 16:22 Dose: 1 mg Documented By: Admin: 01/25/24 01:04 Dose: 1 mg Documented By: FREEMAN Lorazepam (Lorazepam 2 Mg/Ml Inj) 0 mg IV CIWAPRN PRN; Protocol PRN Reason: Alcohol Withdrawal Metoprolol Succinate (Metoprolol Er 50 Mg Tablet) 50 mg PO BID [facility] Last Admin: 01/26/24 09:15 Dose: 50 mg Documented By: Admin: 01/25/24 21:16 Dose: 50 mg Documented By: Admin: 01/25/24 08:56 Dose: 50 mg Documented By: QING Morphine Sulfate (Morphine 2 Mg/Ml Inj) 2 mg IV NOW ONE Stop: 01/26/24 22:53 Last Admin: 01/26/24 23:00 Dose: 2 mg Documented By: RAJESH Morphine Sulfate (Morphine 2 Mg/Ml Inj) 2 mg IV NOW ONE Stop: 01/27/24 03:50 Last Admin: 01/27/24 04:05 Dose: 2 mg Documented By: RAJESH Potassium Chloride (Potassium Chloride 20 Meq Tab) 40 meq PO NOW ONE Stop: 01/25/24 07:46 Last Admin: 01/25/24 09:06 Dose: 40 meq Documented By: QING Thiamine HCl (Thiamine 100 Mg Tablet) 100 mg PO DAILY [facility] Stop: 01/28/24 09:01 Last Admin: 01/26/24 09:16 Dose: 100 mg Documented By: Admin: 01/25/24 08:57 Dose: 100 mg Documented By: QIGN Vital Signs Vital signs: Vital Signs - 8 hr 01/24/24 16:43 01/24/24 16:51 01/24/24 17:20 Temperature 97.8 F Pulse Rate 107 H 118 H 118 H Respiratory Rate 20 21 Blood Pressure 123/71 Pulse Oximetry 91 93 92 Oxygen Delivery Method Room Air Room Air Room Air Oxygen Flow Rate Fraction of Inspired Oxygen 01/24/24 17:28 01/24/24 17:28 01/24/24 17:30 Temperature Pulse Rate 124 H Respiratory Rate 22 Blood Pressure 101/71 106/66 Pulse Oximetry 92 Oxygen Delivery Method Room Air Oxygen Flow Rate Fraction of Inspired Oxygen 01/24/24 17:30 01/24/24 18:00 01/24/24 18:00 Temperature Pulse Rate 119 H 123 H Respiratory Rate 20 18 Blood Pressure 114/76 Pulse Oximetry 93 92 Oxygen Delivery Method Room Air Room Air Oxygen Flow Rate Fraction of Inspired Oxygen 01/24/24 18:30 01/24/24 18:50 01/24/24 19:00 Temperature Pulse Rate 117 H 117 H 123 H Respiratory Rate 22 20 Blood Pressure Pulse Oximetry 92 92 95 Oxygen Delivery Method Room Air Room Air Oxygen Flow Rate 0 Fraction of Inspired Oxygen 21 01/24/24 19:30 Temperature Pulse Rate 107 H Respiratory Rate Blood Pressure Pulse Oximetry 92 Oxygen Delivery Method Oxygen Flow Rate Fraction of Inspired Oxygen MDM - Fall <Aleida Yadav MD - Last Filed: 01/28/24 23:43> Differential Diagnosis Differential diagnosis: Likely syncope, dislocation of shoulder region and fracture of wrist Lab Data 01/28/24 04:35 01/28/24 04:35 Labs: Lab Results 01/24/24 01/24/24 01/24/24 Range/Units 16:51 17:40 19:28 WBC 10.2 (4.5-11.0) X10^3/uL RBC 4.14 L (4.5-5.9) X10^6/uL Hgb 13.1 L (13.5-17.5) g/dL Hct 39.4 L (41-53) % MCV 95.1 (80-100) fL MCH 31.7 (26-34) PG MCHC 33.3 (30-36) % RDW 13.9 (11.6-14.8) % Plt Count 208 (150-400) X10^3/uL Neut % (Auto) 76.4 H (50-75) % Lymph % (Auto) 15.4 L (25-40) % Mathews % (Auto) 7.8 (3-14) % Eos % (Auto) 0.1 L (2-4) % Baso % (Auto) 0.3 (0-2) % Neut # (Auto) 7800 H (1956-2107) /uL Lymph # (Auto) 1600 (7582-9913) /uL Mathews # (Auto) 800 (0-900) /uL Eos # (Auto) 0 (0-450) /uL Baso # (Auto) 0 (0-100) /uL PT 18.5 H (9.4-12.5) SECONDS INR 1.6 H (0.9-1.3) Sodium 138 (137-145) mmol/L Potassium 3.6 (3.4-5.1) mmol/L Chloride 97 L (98-107) mmol/L Carbon Dioxide 34 H (22-32) mmol/L BUN 24 H (9-20) mg/dL Creatinine 1.35 H (0.66-1.25) mg/dL Estimated GFR 53 L (>60) mL/min BUN/Creatinine Ratio 17.8 (6-22) Glucose 114 H (80-110) mg/dL Lactate 2.1 1.6 (0.7-2.1) mmol/L Calcium 9.0 (8.4-10.2) mg/dL Magnesium 1.4 L (1.6-2.3) mg/dL Total Bilirubin 1.5 H (0.2-1.3) mg/dL AST 42 (17-59) IU/L ALT 27 (<50) IU/L Alkaline Phosphatase 139 H (38-126) U/L Ammonia < 9 L (9-30) umol/L Total Creatine Kinase 183 H (55-170) U/L Troponin I 0.016 (0.01-0.034) ng/mL Total Protein 7.0 (6.3-8.2) g/dL Albumin 3.8 (3.5-5.0) g/dL Globulin 3.2 (1.7-4.1) g/dL Albumin/Globulin Ratio 1.2 (1.0-2.8) Lipase 73 (23-300) U/L Ethyl Alcohol < 10 ( - 10) mg/dL [facility] Narrative Medical decision making narrative: Chronically unwell appearing patient with bilateral lower extremity weakness after ground level fall last night. Patient is unable to even lift his legs up against gravity but is able to pedal his feet and has intact sensation. Due to history of alcohol abuse thiamine, folic acid ordered as well as L of IV fluids. Patient reported left shoulder pain but there was no reproducible tenderness to palpation on exam and he was moving his arm without pain. Laboratory work thus far is significant for mild increasing creatinine, 1.35 up from 1.18 in October. Magnesium 1.4, given IV magnesium for repletion. Pending rest of laboratory work as well as imaging review by radiology. Patient care signed to Dr. Dominguez at 1800. [address] Dominguez assumed care of this patient from the preceding provider. I have reviewed the documentation detail. The patient has a left shoulder fracture. We will put him in a sling for his humeral head fracture. He is unable to stand and bear his own weight. He is unable to go home. The patient insists on going home however I do not see any reasonable way to make this a reality for him. We intend to admit him to the hospital or he can leave Against Medical Advice with the dramatic assistance of family members. <Brian Dominguez MD - Last Filed: 01/24/24 20:48> Lab Data Labs: Lab Results 01/24/24 01/24/24 01/24/24 Range/Units 16:51 17:40 19:28 WBC 10.2 (4.5-11.0) X10^3/uL RBC 4.14 L (4.5-5.9) X10^6/uL Hgb 13.1 L (13.5-17.5) g/dL Hct 39.4 L (41-53) % MCV 95.1 (80-100) fL MCH 31.7 (26-34) PG MCHC 33.3 (30-36) % RDW 13.9 (11.6-14.8) % Plt Count 208 (150-400) X10^3/uL Neut % (Auto) 76.4 H (50-75) % Lymph % (Auto) 15.4 L (25-40) % Mathews % (Auto) 7.8 (3-14) % Eos % (Auto) 0.1 L (2-4) % Baso % (Auto) 0.3 (0-2) % Neut # (Auto) 7800 H (7335-1208) /uL Lymph # (Auto) 1600 (5114-8420) /uL Mathews # (Auto) 800 (0-900) /uL Eos # (Auto) 0 (0-450) /uL Baso # (Auto) 0 (0-100) /uL PT 18.5 H (9.4-12.5) SECONDS INR 1.6 H (0.9-1.3) Sodium 138 (137-145) mmol/L Potassium 3.6 (3.4-5.1) mmol/L Chloride 97 L (98-107) mmol/L Carbon Dioxide 34 H (22-32) mmol/L BUN 24 H (9-20) mg/dL Creatinine 1.35 H (0.66-1.25) mg/dL Estimated GFR 53 L (>60) mL/min BUN/Creatinine Ratio 17.8 (6-22) Glucose 114 H (80-110) mg/dL Lactate 2.1 1.6 (0.7-2.1) mmol/L Calcium 9.0 (8.4-10.2) mg/dL Magnesium 1.4 L (1.6-2.3) mg/dL Total Bilirubin 1.5 H (0.2-1.3) mg/dL AST 42 (17-59) IU/L ALT 27 (<50) IU/L Alkaline Phosphatase 139 H (38-126) U/L Ammonia < 9 L (9-30) umol/L Total Creatine Kinase 183 H (55-170) U/L Troponin I 0.016 (0.01-0.034) ng/mL Total Protein 7.0 (6.3-8.2) g/dL Albumin 3.8 (3.5-5.0) g/dL Globulin 3.2 (1.7-4.1) g/dL Albumin/Globulin Ratio 1.2 (1.0-2.8) Lipase 73 (23-300) U/L Ethyl Alcohol < 10 ( - 10) mg/dL MDM Narrative Medical decision making narrative: Chronically unwell appearing patient with bilateral lower extremity weakness after ground level fall last night. Patient is unable to even lift his legs up against gravity but is able to pedal his feet and has intact sensation. Due to history of alcohol abuse thiamine, folic acid ordered as well as L of IV fluids. Patient reported left shoulder pain but there was no reproducible tenderness to palpation on exam and he was moving his arm without pain. Laboratory work thus far is significant for mild increasing creatinine, 1.35 up from 1.18 in October. Magnesium 1.4, given IV magnesium for repletion. 2042 Dr. Dominguez assumed care of this patient from the preceding provider. I have reviewed the documentation detail. The patient has a left shoulder fracture. We will put him in a sling for his humeral head fracture. He is unable to stand and bear his own weight. He is unable to go home. The patient insists on going home however I do not see any reasonable way to make this a reality for him. We intend to admit him to the hospital or he can leave Against Medical Advice with the dramatic assistance of family members. Discharge Plan Departure Patient Disposition: Admitted As Inpatient Clinical Impression: Hypomagnesemia, Generalized weakness Closed left humeral fracture Qualifiers: Encounter type: initial encounter Humerus Location: greater tuberosity Fracture alignment: displaced Qualified Code(s): S42.252A - Displaced fracture of greater tuberosity of left humerus, initial encounter for closed fracture Alcohol dependence Qualifiers: Substance use status: other alcohol-induced disorder Qualified Code(s): F10.288 - Alcohol dependence with other alcohol-induced disorder Fall at home Qualifiers: Encounter type: initial encounter Qualified Code(s): W19.XXXA - Unspecified fall, initial encounter; Y92.009 - Unspecified place in unspecified non-institutional (private) residence as the place of occurrence of the external cause Admit Date/Time: 01/24/24 21:04 Admit Provider: Aime Sommers V
[2024-01-24 16:59] LABS: Add Manual Diff / Slide Review NO; Basophils Absolute Auto 0 /uL (0-100); Basophils Percent Auto 0.3 % (0-2); Eosinophils Absolute Auto 0 /uL (0-450); Eosinophils Percent Auto 0.1 % (2-4); Hematocrit 39.4 % (41-53); Hemoglobin 13.1 g/dL (13.5-17.5); Lymphocytes Absolute Auto 1600 /uL (1100-4500); Lymphocytes Percent Auto 15.4 % (25-40); Mean Corpuscular HGB Conc 33.3 % (30-36); Mean Corpuscular Hemoglobin 31.7 PG (26-34); Mean Corpuscular Volume 95.1 fL (80-100); Monocytes Absolute Auto 800 /uL (0-900); Monocytes Percent Auto 7.8 % (3-14); Neutrophils Absolute Auto 7800 /uL (1500-7000); Neutrophils Percent Auto 76.4 % (50-75); Platelet Count 208 X10^3/uL (150-400); Red Blood Cell Count 4.14 X10^6/uL (4.5-5.9); Red Cell Distribution Width 13.9 % (11.6-14.8); White Blood Cell Count 10.2 X10^3/uL (4.5-11.0)
[2024-01-24] MEDS: THIAMINE 200 MG in SODIUM CHLORIDE 0.9% 100 ML 408 MG IV (17:01)
[2024-01-24] MEDS: SODIUM CHLORIDE 0.9% 1,000 ML 1000 ML IV (17:01)
[2024-01-24] MEDS: FOLIC ACID 1 MG TABLET PO (17:02)
[2024-01-24 17:08] LABS: INR 1.6 (0.9-1.3); Prothrombin Time 18.5 SECONDS (9.4-12.5)
[2024-01-24 17:13] LABS: Lactate (Lactic Acid) 2.1 mmol/L (0.7-2.1)
[2024-01-24 17:14] LABS: Alanine Aminotransferase 27 IU/L (<50); Albumin 3.8 g/dL (3.5-5.0); Albumin Globulin Ratio 1.2 (1.0-2.8); Alkaline Phosphatase 139 U/L (38-126); Aspartate Aminotransferase 42 IU/L (17-59); BUN Creatinine Ratio 17.8 (6-22); Bilirubin Total 1.5 mg/dL (0.2-1.3); Blood Urea Nitrogen 24 mg/dL (9-20); Carbon Dioxide 34 mmol/L (22-32); Chloride 97 mmol/L (98-107); Estimated Glomerular Filt Rate 53 mL/min (>60); Ethanol (ETOH) < 10 mg/dL; Globulin 3.2 g/dL (1.7-4.1); Glucose 114 mg/dL (80-110); HEMOLYSIS < 15 (0-50); Lipase 73 U/L (23-300); Magnesium 1.4 mg/dL (1.6-2.3); Potassium 3.6 mmol/L (3.4-5.1); Sodium 138 mmol/L (137-145)
[2024-01-24 17:24] LABS: Troponin I 0.016 ng/mL (0.01-0.034)
[2024-01-24 17:55] LABS: Creatine Kinase 183 U/L (55-170)
[2024-01-24] MEDS: MAGNESIUM SULFATE 2 GM/50 ML PIGGYBACK IV (18:07)
[2024-01-24 18:32] LABS: Reflexed Lactate in 2 Hours Y
[2024-01-24 18:41] LABS: Ammonia (NH3) < 9 umol/L (9-30)
[2024-01-24] MEDS: ALBUTEROL/IPRATROPIUM 3 ML AMPUL 6 ML INH (18:50)
--- NOTE | 2024-01-24 18:53 | PC.NURSE ---
1649 Patient initially refusing [address]s and Xrays. After speaking with family, he was ok with the scans as long as his daughter went with him. She attended him to scans, they were all completed.
--- NOTE | 2024-01-24 19:00 | PC.NURSE ---
1830 Patient becoming restless and wants to leave. he states my ass hurts. Patient allowed to sit up on the bedside with demetrius at bedside. Monitors still attached. After a short period of time he was moved to a chair due to continued discomfort. samira remains beside him and he remains on the monitor. He reports relief of discomfort. He is audibly wheezing, has known COPD, O2 sats remain between 90-93% on Room air. Patient agrees to nebulizer treatment, RT called to come for eval and treat.
--- NOTE | 2024-01-24 19:03 | PC.NURSE ---
Wheezing has decreased throughout lung solitario after nebulizer treatment.
--- NOTE | 2024-01-24 19:04 | PC.NURSE ---
1845 Patient able to stand and pivot to chair with stand by assist. Family reports this as improvement as one of their concerns in coming to the ER was that he would not stand at all.
--- NOTE | 2024-01-24 19:31 | DI.RAD.S_ITS ---
PROCEDURE: XR SHOULDER LT MIN 2V INDICATIONS: fall TECHNIQUE: 3 views of the shoulder were acquired. COMPARISON: None. FINDINGS: Bones: Mildly displaced fracture of the greater tuberosity. Soft tissues: No suspicious soft tissue calcifications. IMPRESSION: Mildly displaced fracture of the greater tuberosity. Dictated by: Glenn Shelby M.D. on 01/24/2024 at 20:44 Approved by: Glenn Shelby M.D. on 01/24/2024 at 20:45
[2024-01-24 19:45] LABS: Lactate 2HR (Lactic Acid Rflx) 1.6 mmol/L (0.7-2.1)
--- NOTE | 2024-01-24 21:06 | DI.RAD.S_ITS ---
PROCEDURE: XR HIP W PEL IF DONE LT 2V INDICATIONS: trauma TECHNIQUE: 2 views of the hip were acquired. COMPARISON: None. FINDINGS: Bones: No fractures or dislocations. No suspicious bony lesions. The visualized pelvic ring appears intact. Soft tissues: No suspicious soft tissue calcifications or masses. IMPRESSION: No displaced fracture. If there remains a high clinical concern or the patient cannot bear weight, consider cross-sectional imaging to exclude an occult fracture. Dictated by: Glenn Shelby M.D. on 01/24/2024 at 22:01 Approved by: Glenn Shelby M.D. on 01/24/2024 at 22:02
--- NOTE | 2024-01-24 21:13 | PM.HP.1 ---
History of Present Illness History of Present Illness Date Patient Seen: 01/24/24 Time Patient Seen: 23:50 Date of Onset of Symptoms: 01/23/24 Chief complaint: fall yesterday, unable to walk today Narrative: Markos Savage is an 78yo male with history of alcohol abuse, HTN, COPD, PVD with history of peripheral arterial embolism, Chronic HFrEF, Atrial Fibrillation on Eliquis who presents with generalized weakness and frequent falls. The patient lives by himself with his family checking on him frequently, and last night the patients daughter tried calling him around 6pm but he did not answer. Family went to check on him around 9pm and found him on the ground, too weak to get himself back up. He had a visible bruise on his face but was acting like his normal self. Family did note an empty whiskey bottle near him on the floor, as he reportedly drinks fairly heavily though the patient seems to minimize this. He declined transfer to the ED at that time, but today family noted he was still too weak to ambulate effectively and brought him to the ED for further evaluation. He denies any asymmetric neurologic weakness, headaches, vision changes, chest pain, dyspnea, cough. He indicates that he thinks he had too many [place] hard lemonades yesterday and slipped on his tile floor due to wearing socks only. He is not sure if he passed out or not. In the ED, he was normotensive but mildly tachycardic in atrial fibrillation. His labs showed a minimally elevated CK of 183 as well as a magnesium level of 1.4. His creatinine was 1.35 which was only minimally above his baseline. CT of his Brain and Cervical spine were negative for acute pathology. Hip x-rays showed no acute fracture, though a left shoulder x-ray showed a minimal fracture of the left humeral tuberosity and his arm was placed in a sling. He was given IV thiamine, fluids and folate, but due to his inability to ambulate he was admitted for further care. Of note, he reports that he has trouble lifting his legs up off the gurney, though he is not clear on whether that is acute or chronic in nature. FOR[facility]LY [facility] Medical History Gout COPD (chronic obstructive pulmonary disease) Peripheral neuropathy Retinal detachment Peripheral vascular disease Essential hypertension (11/01/17) Pure hypercholesterolemia (04/24/16) Systolic congestive heart failure (04/24/16) Atrial fibrillation (04/24/16) Arterial embolism of left leg Surgical History Anesthesia History of surgery History of eye surgery History of cataract removal with insertion of prosthetic lens Family History Father History of heart disease Sister Cancer Social History household members: none Smoking Status: Former smoker alcohol intake: current Meds Home Medications and Allergies Home Medications Medication Instructions Recorded Confirmed Type lisinopril 10 mg tablet 5 mg (1/2 x 10 mg) PO BID #180 tabs 11/01/22 11/26/23 Rx spironolactone 25 mg tablet 25 mg PO DAILY #90 tabs 02/06/23 11/26/23 Rx metoprolol succinate 50 mg 50 mg PO BID #180 tabs 08/10/23 11/26/23 Rx tablet,extended release 24 hr apixaban 2.5 mg tablet (Eliquis) 2.5 mg PO BID #60 tabs 08/27/23 11/26/23 Rx atorvastatin 80 mg tablet 80 mg PO BEDTIME #30 tabs 10/24/23 11/26/23 Rx furosemide 20 mg tablet 20 mg PO BID #180 tabs 11/12/23 11/26/23 Rx mupirocin 2 % topical ointment 1 applic topical TID #22 grams 11/26/23 11/26/23 Rx Allergies Allergy/AdvReac Type Severity Reaction Status Date / Time No Known Drug Allergies Allergy Verified 11/26/23 17:19 Review of Systems Review of Systems Narrative: Constitutional: denies fevers, weight loss, night sweats. HEENT: denies blurred or double vision. Denies rhinorrhea, sore throat. CVS: denies chest pain, palpitations, syncope, orthopnea. Resp: positive for occasional mild cough and dyspnea on exertion. Denies sputum production, wheezing. GI: denies nausea, vomiting, diarrhea, melena. Skin: positive for bruising. MSK: positive for pain in left hip and left shoulder, along with some back pain. Neuro: positive for lower extremity weakness. Exam Vital Signs (past 8 hours): - 01/24/24 16:43 01/24/24 16:51 01/24/24 17:20 Temperature 97.8 F Pulse Rate 107 H 118 H 118 H Respiratory Rate 20 21 Blood Pressure 123/71 Pulse Oximetry 91 93 92 Oxygen Delivery Method Room Air Room Air Room Air Oxygen Flow Rate Fraction of Inspired Oxygen 01/24/24 17:28 01/24/24 17:28 01/24/24 17:30 Temperature Pulse Rate 124 H Respiratory Rate 22 Blood Pressure 101/71 106/66 Pulse Oximetry 92 Oxygen Delivery Method Room Air Oxygen Flow Rate Fraction of Inspired Oxygen 01/24/24 17:30 01/24/24 18:00 01/24/24 18:00 Temperature Pulse Rate 119 H 123 H Respiratory Rate 20 18 Blood Pressure 114/76 Pulse Oximetry 93 92 Oxygen Delivery Method Room Air Room Air Oxygen Flow Rate Fraction of Inspired Oxygen 01/24/24 18:30 01/24/24 18:50 01/24/24 19:00 Temperature Pulse Rate 117 H 117 H 123 H Respiratory Rate 22 20 Blood Pressure Pulse Oximetry 92 92 95 Oxygen Delivery Method Room Air Room Air Oxygen Flow Rate 0 Fraction of Inspired Oxygen 21 01/24/24 19:30 01/24/24 20:00 01/24/24 20:30 Temperature Pulse Rate 107 H 118 H 103 H Respiratory Rate Blood Pressure Pulse Oximetry 92 91 Oxygen Delivery Method Room Air Oxygen Flow Rate Fraction of Inspired Oxygen 01/24/24 20:41 01/24/24 20:57 Temperature Pulse Rate 68 Respiratory Rate 24 Blood Pressure 129/86 Pulse Oximetry 90 L Oxygen Delivery Method Room Air Oxygen Flow Rate Fraction of Inspired Oxygen Fraction of Inspired Oxygen 21 SaO2/FiO2 Ratio 438 Oxygen Delivery Method Room Air Oxygen Flow Rate 0 Narrative Exam Narrative: Gen: alert, oriented x3. Appears frail and elderly. No active distress but looks chronically ill. HEENT: normocephalic, atraumatic. PERRL, anicteric sclera, MMM Neck: no JVD CVS: normal rate, irregular rhythm, normal S1 and S2, no m/r/g. Resp: no respiratory distress, good air movement bilaterally, no w/r/r. Abd: soft, non-tender, non-distended, normal bowel sounds. Ext: no edema, scattered small ecchymoses. Neuro: alert and oriented, upper extremities with normal strength, but lower extremities appear mildly weak bilaterally. Has difficulty with heel to sheridan testing bilaterally. CN II-XII grossly intact. Psych: normal affect and mood. Objective Imaging CT scan - head: Radiologist's impression: 1. No CT evidence of acute intracranial trauma. 2. No significant soft tissue injury or underlying fracture. 3. Prominent hypodensity of chronic microvascular ischemia through the white matter. Dictated by: Yael Andrew M.D. on 01/24/2024 at 17:34 CT scan - cervical spine: Radiologist's impression: No CT evidence of acute cervical spine trauma. Spondylosis and spondylolisthesis C3-4 and C4-5. Severe T6 compression fracture, most likely present on rib from from 01/24/23, but may have progressed in severity. Correlate with point tenderness to exclude acute on chronic injury. Dictated by: Yael Andrew M.D. on 01/24/2024 at 17:36 Chest x-ray: Radiologist's impression: Changes of chronic emphysema. Dictated by: Yael Andrew M.D. on 01/24/2024 at 18:44 Shoulder x-ray - left: Radiologist's impression: Mildly displaced fracture of the greater tuberosity. Dictated by: Glenn Shelby M.D. on 01/24/2024 at 20:44 Hip x-ray: Radiologist's impression: No displaced fracture. If there remains a high clinical concern or the patient cannot bear weight, consider cross-sectional imaging to exclude an occult fracture. Dictated by: Glenn Shelby M.D. on 01/24/2024 at 22:01 Labs 01/24/24 16:51 01/24/24 16:51 Labs: Laboratory Results - last 24 hr 01/24/24 01/24/24 01/24/24 16:51 17:40 19:28 WBC 10.2 RBC 4.14 L Hgb 13.1 L Hct 39.4 L MCV 95.1 MCH 31.7 MCHC 33.3 RDW 13.9 Plt Count 208 Neut % (Auto) 76.4 H Lymph % (Auto) 15.4 L [place] % (Auto) 7.8 Eos % (Auto) 0.1 L Baso % (Auto) 0.3 Neut # (Auto) 7800 H Lymph # (Auto) 1600 [place] # (Auto) 800 Eos # (Auto) 0 Baso # (Auto) 0 PT 18.5 H INR 1.6 H Sodium 138 Potassium 3.6 Chloride 97 L Carbon Dioxide 34 H BUN 24 H Creatinine 1.35 H Estimated GFR 53 L BUN/Creatinine Ratio 17.8 Glucose 114 H Lactate 2.1 1.6 Calcium 9.0 Magnesium 1.4 L Total Bilirubin 1.5 H AST 42 ALT 27 Alkaline Phosphatase 139 H Ammonia < 9 L Total Creatine Kinase 183 H Troponin I 0.016 Total Protein 7.0 Albumin 3.8 Globulin 3.2 Albumin/Globulin Ratio 1.2 Lipase 73 Ethyl Alcohol < 10 Assessment & Plan Assessment & Plan narrative: Markos Savage is an 78yo male with history of alcohol misuse, atrial fibrillation on Eliquis, HTN, COPD, PVD, CHF and tobacco use who presented with a ground level fall yesterday and continued inability to ambulate since the fall. # Ambulatory Dysfunction: # Ground Level Fall: # Lower Extremity Weakness with history of T6 Compression Fracture: His fall yesterday was likely secondary to alcohol intoxication though he has continued to have ongoing generalized weakness and having difficulty in ambulating since that time. He does appear to have some bilateral lower extremity weakness, but denies any saddle anesthesia, peripheral neuropathy or urinary/fecal incontinence. His T6 compression fracture appears chronic based on imaging. - Will monitor in the hospital for now on observation. - Treat alcohol and hypomagnesemia as noted below. - PT/OT consulted. - Given his lower extremity weakness and history of T6 compression fracture, will check thoracic spine MRI to rule out acute issue, though he does not have other clinical signs of cord compression. # Alcohol Abuse: Unclear how much he truly drinks in a given day/week. - Place on CIWA protocol for now to monitor trend. - PRN Ativan for now, but if CIWA scale increases can consider Librium. - Continue PO Thiamine and Folate. - Encourage cessation. # Hypomagnesemia: - Received replacement in the ED. - Repeat magnesium level in the morning. # Left Humeral Head Fracture: Mildly displaced per x-ray. - Continue sling. Likely non-operative with outpatient management, but can discuss with ortho in the morning to verify. - PRN Hydrocodone. # Atrial Fibrillation, Persistent: - Resume home Metoprolol and Eliquis. # Essential Hypertension: Controlled. - Resume home metoprolol XL and lisinopril. # Chronic HFrEF: Last LVEF was 30% via TTE in 2022. No acute component at this time. - Can consider repeat TTE if there is concern for syncopal event contributing to his current presentation. - Resume home metoprolol XL, lisinopril, atorvastatin. Holding furosemide and spironolactone for now, can resume in 1-2 days as indicated. Code Status: Full Code DVT: on Eliquis I have seen this patient at [facility] using all aspects of audio/visual telemedicine with appropriate nursing assistance. Aime Sommers MD [place] [facility] Time Spent With Patient Time with patient: 70 minutes or more, with 50% spent counseling/coordinating
[2024-01-25] VITALS (7 sets, daily range): BP systolic 113–131; BP diastolic 67–95; PULSE 68–98; RESP 16–19; TEMP 35.9–36.6; O2SAT 91–99
[2024-01-25] MEDS: SODIUM CHLORIDE 0.9% 1,000 ML 100 ML IV ×2 (00:33→06:35)
[2024-01-25] MEDS: HYDROCODONE/ACET 5/325 TABLET 1 TAB PO ×3 (00:40→16:22)
[2024-01-25] MEDS: LORazepam 1 MG TABLET PO ×2 (01:04→16:22)
[2024-01-25 06:28] LABS: Add Manual Diff / Slide Review NO; Basophils Absolute Auto 0 /uL (0-100); Basophils Percent Auto 0.2 % (0-2); Eosinophils Absolute Auto 0 /uL (0-450); Hematocrit 34.4 % (41-53); Hemoglobin 11.4 g/dL (13.5-17.5); Lymphocytes Absolute Auto 1300 /uL (1100-4500); Lymphocytes Percent Auto 18.1 % (25-40); Mean Corpuscular HGB Conc 33.2 % (30-36); Mean Corpuscular Hemoglobin 31.9 PG (26-34); Mean Corpuscular Volume 96.1 fL (80-100); Monocytes Absolute Auto 500 /uL (0-900); Monocytes Percent Auto 7.4 % (3-14); Neutrophils Absolute Auto 5500 /uL (1500-7000); Neutrophils Percent Auto 74.3 % (50-75); Platelet Count 161 X10^3/uL (150-400); Red Blood Cell Count 3.58 X10^6/uL (4.5-5.9); Red Cell Distribution Width 13.6 % (11.6-14.8); White Blood Cell Count 7.4 X10^3/uL (4.5-11.0)
[2024-01-25 06:34] LABS: Alanine Aminotransferase 22 IU/L (<50); Albumin 3.1 g/dL (3.5-5.0); Albumin Globulin Ratio 1.1 (1.0-2.8); Alkaline Phosphatase 115 U/L (38-126); Aspartate Aminotransferase 37 IU/L (17-59); Bilirubin Total 1.4 mg/dL (0.2-1.3); Blood Urea Nitrogen 25 mg/dL (9-20); Calcium 8.1 mg/dL (8.4-10.2); Carbon Dioxide 33 mmol/L (22-32); Chloride 103 mmol/L (98-107); Creatine Kinase 160 U/L (55-170); Estimated Glomerular Filt Rate > 60 mL/min (>60); Globulin 2.8 g/dL (1.7-4.1); Glucose 86 mg/dL (80-110); HEMOLYSIS < 15 (0-50); Phosphorous 3.4 mg/dL (2.3-3.7); Potassium 3.4 mmol/L (3.4-5.1); Sodium 137 mmol/L (137-145); Total Protein 5.9 g/dL (6.3-8.2)
--- NOTE | 2024-01-25 06:53 | PC.ADMIT ---
[id number] [address] [address] Admission Note: Patient admitted to AC unit from ED @22:10, transferred by gurney and slideboard transfer to bed. A/O x 4, agitated. Denied pain, but evident with movement. After talking with the MD, he started shouting out in pain rating it a 7/10. Pain medication given as ordered. NS running @ 100. Oriented to room and call light, bed in low and locked position and call light within reach. Bed alarm on for safety. The patient,Markos Savage,78 y/o, was given written information regarding hospital policies, unit procedures and contact persons. Patient's smoking status: Former smoker. Vital Signs - 8 hr 01/25/24 01:35 01/25/24 06:00 Temperature 97.8 F Pulse Rate 98 H 97 H Respiratory Rate 16 19 Blood Pressure 113/67 Pulse Oximetry 93 Oxygen Flow Rate 1
[2024-01-25] MEDS: METOPROLOL ER 50 MG TABLET PO ×2 (08:56→21:16)
[2024-01-25] MEDS: APIXABAN 5 MG TABLET 2.5 MG PO ×2 (08:56→21:15)
[2024-01-25] MEDS: THIAMINE 100 MG TABLET PO (08:57)
[2024-01-25] MEDS: MULTIVITAMIN 1 TABLET 1 TAB PO (08:57)
[2024-01-25] MEDS: FOLIC ACID 1 MG TABLET PO (08:57)
[2024-01-25] MEDS: lisinopriL 5 MG TABLET PO (08:57)
[2024-01-25] MEDS: POTASSIUM CHLORIDE 20 MEQ TAB 40 MEQ PO (09:06)
--- NOTE | 2024-01-25 10:05 | PT.IIE ---
Surgical History (Last Reviewed 01/24/24 @ 23:51 by Aime Sommers MD) Anesthesia History of cataract removal with insertion of prosthetic lens History of eye surgery History of surgery Medical History (Last Reviewed 01/24/24 @ 23:51 by Aime Sommers MD) Arterial embolism of left leg Atrial fibrillation (04/24/16) COPD (chronic obstructive pulmonary disease) Essential hypertension (11/01/17) Gout Peripheral neuropathy Peripheral vascular disease Pure hypercholesterolemia (04/24/16) Retinal detachment Systolic congestive heart failure (04/24/16) Physical Therapy Inpatient Evaluation/Re-Eval M1 PT/OT-IP Prior Functional Status Start: 01/25/24 11:40 Freq: NEEDED Status: Active Protocol: Document 01/25/24 10:05 AB (Rec: 01/25/24 11:57 AB [id number]) Medical Review Prior Functional Status Medical History Reviewed Yes Communication able to make needs known Mobility and Gait pt stated that he was independent with all mobilities and ambulation without AD Social History Household Members none Living Arrangements House Number of Floors (Floors) Two Floors Number of Stairs To Enter/Railing? pt stated that he can stay on main level of the house has 2 steps R rail ascending to enter the house Home Environment Standard Height Toilet,Walk in Shower,Tub/Shower Doors Home Equipment Straight Cane,Shower Seat without Backrest,Hand Held Shower,Grab Bars In Shower Additional Social History Comment pt stated that he usually sleeps on his couch M2 PT-IP Current Condition Start: 01/25/24 11:40 Freq: NEEDED Status: Active Protocol: Document 01/25/24 10:05 AB (Rec: 01/25/24 11:57 AB [id number]) Physical Therapy Current Condition Current Condition Evaluation Date 01/25/24 Treatment Diagnosis s/p fall; L humeral head fx; T6 compression fx; difficulty in walking Onset Date 01/24/24 M3 PT-IP Subjective Start: 01/25/24 11:40 Freq: NEEDED Status: Active Protocol: Document 01/25/24 10:05 AB (Rec: 01/25/24 11:57 AB [id number]) Subjective Physical Therapy Visit Type Type Initial Evaluation Visit Start Time 10:05 Visit Stop Time 10:55 Number of BUILDING MAINTENANCE SUPERINTENDENT Visits 0 Therapy Pain Assessment Pain Present Pain Present Denied Pain M4 PT-IP Mobility and Gait Start: 01/25/24 11:40 Freq: NEEDED Status: Active Protocol: Document 01/25/24 10:05 AB (Rec: 01/25/24 11:57 AB [id number]) PT-Bed Mobility Assessment Rolling Level of Assist Maximal Assistance Supine to Sit Supine to Sit Maximum Assistance,Head of Bed Elevated,Bedrails Sit to Supine Sit to Supine Maximum Assistance,Bedrails PT-Transfer Assessment Sit to and From Stand Sit to and from Stand Maximum Assistance,1 Person Assistance,2 Person Assistance ,Use of Upper Extremities Equipment Transfer Assistive Device Gait Belt,Donny Walker Orthotic/Prosthetic Devices or Brace: Yes Transfers Transfer Destination Bed,Toilet Transfer Technique Stand Step Pivot Transfer Ability Level of Assist Maximum Assistance,2 Person Assistance,Use of Upper Extremities Comments Mobility Comments pt supine in bed and agreed to do PT. obtained PLOF and home set up from pt. pt needing to be cleaned up and NAC in room to assist. pt completed rolling L<>R max A and cues. pt completed supine to sit max A x 1 and max cues. assisted pt with sling management. educated pt on L shoulder precautions and weight bearing restriction. pt able to sit on EOB CGA. (+) SOB and O2 sat checked: 82% at RA. provided pt with O2 initially at 2L/min and O2 sat: 88% with slow recovery. O2 provided at 3L/ min and O2 sat increased to 92 %. completed sit to stand max A and step transfer to chair using hemiwalker max A x 2 and max cues. (+) L knee slight buckling. cued for stabilizing LLE. pt then stated that he needs to use the toilet. positioned bedside commode next to pt. pt completed sit to stand from the chair max A and max A x 2 to bedside commode and max cues. increase stooped posture and knee flexion towards end of transfer. max A for standing balance using hemiwalker for support while assisted with brief management . pt completed sit to stand from bedside commode max A x 2 and max cues. required max A x 1 -2 for standing balance using hemiwalker for support while NAC assisted pt with hygiene care and brief management. pt completed step trasnfer to chair using hemiwalker max Ax 2 and max cues. positioned pt on the chair but again stated that he needs to use the toilet let again but already had BM with brief on. completed sit to stand from the chair max A and max A x 2 for step transfer to bed using hemiwalker. max A xfor sit to supine and positioned pt in bed. O2 sat : 96% and O2 decreased to 2L/min. informed nurse regarding pt's mobility, O2 sat that pt needs to be cleaned up. PT-Balance Assessment Sitting Balance and Reactions Static Sitting Balance Ability Good Dynamic Sitting Balance Ability Fair Standing Balance and Reactions Static Standing Balance Ability Poor Dynamic Standing Balance Ability Poor Device Used hemiwalker M5 PT-IP Objective Assessments Start: 01/25/24 11:40 Freq: NEEDED Status: Active Protocol: Document 01/25/24 10:05 AB (Rec: 01/25/24 11:57 AB [id number]) Orientation Orientation/Cognition Level of Alertness Alert Orientation Name,Year,Place,Situation Safety Awareness Decreased Safety Awareness Memory Description Short Term Impaired Gross Range of Motion Lower Extremity ROM Assessment Within Functional Limits Strength Lower Extremity Strength Assessment Bilaterally Impaired Hip 3-/5 Knee 3+/5 Coordination Assessment Gross Coordination Gross Coordination WNL Sensation Assessment Sensation Gross Sensation WNL Muscle Tone Muscle Tone WNL Yes M6 PT-IP Treatment Start: 01/25/24 11:40 Freq: NEEDED Status: Active Protocol: Document 01/25/24 10:05 AB (Rec: 01/25/24 11:57 AB [id number]) Physical Therapy Treatment Education Education Provided Precautions,Weight Bearing Status,Post-Op Packet,Safety M7 PT-IP Assessment and Plan Start: 01/25/24 11:40 Freq: NEEDED Status: Active Protocol: Document 01/25/24 10:05 AB (Rec: 01/25/24 11:57 AB [id number]) PT Summary Assessment and Plan Potential Rehabilitation Potential Fair Status of Condition at Evaluation Evolving Summary Impairments Pain,ROM,Strength,Balance, Coordination,Sensation,Tone, Cognition,Bed Mobility, Transfers,Gait,Activity Tolerance Assessment Summary pt is an 78 y/o M who presented to the ED s/p fall. pt with alcohol abuse and had a fall. pt sustained a L humeral head fx and also has a T6 compression fx. pt with LUE sling and is NWB on LUE. pt requiring max A x 2 for step transfer using hemiwalker . pt requires 24/ assist and will benefit from SNF rehab. will continue to assess progress. Goals Bed Mobility Goal Minimal Assistance Transfer Goal Minimal Assistance Gait Goal Minimal Assistance,Donny Walker Gait Distance 25 Other Goals improve bed mobility, transfers,ambulation using LRAD ~ 150 ft mod I up/down 2 steps R rail ascending SBA Days to Meet Goals 10 Frequency of Treatment Frequency Of Treatment Once a Day Treatment Plan Physical Therapy Treatment Plan Bed Mobility Training,Transfer Training,Gait Training, Therapeutic Exercise,Balance Retraining,Discharge Planning, Hot or Cold Pack,Neuromuscular Re-ed,Coordination Retraining ,Manual Therapy Precautions Shoulder Precautions Sling Weight Bearing Status Weight Bearing Status Non-Weight Bearing Allowed Weight Bearing Amount (enter % LUE NWB or #) (%) Recommendations To Nursing Amount of Assist Needed 2 Person Assist Discharge Recommendations PT Discharge Recommendations SNF Rehab Transportation Needs at Discharge Wheelchair/Cabulance
--- NOTE | 2024-01-25 10:05 | PT.IIE ---
Surgical History (Last Reviewed 01/24/24 @ 23:51 by Aime Sommers MD) Anesthesia History of cataract removal with insertion of prosthetic lens History of eye surgery History of surgery Medical History (Last Reviewed 01/24/24 @ 23:51 by Aime Sommers MD) Arterial embolism of left leg Atrial fibrillation (04/24/16) COPD (chronic obstructive pulmonary disease) Essential hypertension (11/01/17) Gout Peripheral neuropathy Peripheral vascular disease Pure hypercholesterolemia (04/24/16) Retinal detachment Systolic congestive heart failure (04/24/16) Physical Therapy Inpatient Evaluation/Re-Eval M1 PT/OT-IP Prior Functional Status Start: 01/25/24 11:40 Freq: NEEDED Status: Active Protocol: Document 01/25/24 10:05 AB (Rec: 01/25/24 11:57 AB [id number]) Medical Review Prior Functional Status Medical History Reviewed Yes Communication able to make needs known Mobility and Gait pt stated that he was independent with all mobilities and ambulation without AD Social History Household Members none Living Arrangements House Number of Floors (Floors) Two Floors Number of Stairs To Enter/Railing? pt stated that he can stay on main level of the house has 2 steps R rail ascending to enter the house Home Environment Standard Height Toilet,Walk in Shower,Tub/Shower Doors Home Equipment Straight Cane,Shower Seat without Backrest,Hand Held Shower,Grab Bars In Shower Additional Social History Comment pt stated that he usually sleeps on his couch M2 PT-IP Current Condition Start: 01/25/24 11:40 Freq: NEEDED Status: Active Protocol: Document 01/25/24 10:05 AB (Rec: 01/25/24 11:57 AB [id number]) Physical Therapy Current Condition Current Condition Evaluation Date 01/25/24 Treatment Diagnosis s/p fall; L humeral head fx; T6 compression fx; difficulty in walking Onset Date 01/24/24 M3 PT-IP Subjective Start: 01/25/24 11:40 Freq: NEEDED Status: Active Protocol: Document 01/25/24 10:05 AB (Rec: 01/25/24 11:57 AB [id number]) Subjective Physical Therapy Visit Type Type Initial Evaluation Visit Start Time 10:05 Visit Stop Time 10:55 Number of CUSTOMER ACQUISITION MANAGER Visits 0 Therapy Pain Assessment Pain Present Pain Present Denied Pain M4 PT-IP Mobility and Gait Start: 01/25/24 11:40 Freq: NEEDED Status: Active Protocol: Document 01/25/24 10:05 AB (Rec: 01/25/24 11:57 AB [id number]) PT-Transfer Assessment Sit to and From Stand Sit to and from Stand Maximum Assistance,1 Person Assistance,2 Person Assistance ,Use of Upper Extremities Equipment Transfer Assistive Device Gait Belt,Donny Walker Orthotic/Prosthetic Devices or Brace: Yes Transfers Transfer Destination Bed,Toilet Transfer Technique Stand Step Pivot Transfer Ability Level of Assist Maximum Assistance,2 Person Assistance,Use of Upper Extremities Comments Mobility Comments pt supine in bed and agreed to do PT. obtained PLOF and home set up from pt. pt needing to be cleaned up and NAC in room to assist. pt completed rolling L<>R max A and cues. pt completed supine to sit max A x 1 and max cues. assisted pt with sling management. educated pt on L shoulder precautions and weight bearing restriction. pt able to sit on EOB CGA. completed sit to stand max A and step transfer to chair using hemiwalker max A x 2 and max cues. (+) L knee slight buckling. cued for stabilizing LLE. pt then stated that he needs to use the toilet. positioned bedside commode next to pt. pt completed sit to stand from the chair max A and max A x 2 to bedside commode and max cues. increase stooped posture and knee flexion towards end of transfer. max A for standing balance using hemiwalker for support while assisted with brief management . pt completed sit to stand from bedside commode max A x 2 and max cues. required max A x 1 -2 for standing balance using hemiwalker for support while NAC assisted pt with hygiene care and brief management. pt completed step trasnfer to chair using hemiwalker max Ax 2 and max cues. positioned pt on the chair but again stated that he needs to use the toilet let again but already had BM with brief on. completed sit to stand from the chair max A and max A x 2 for step transfer to bed using hemiwalker. max A xfor sit to supine and positioned pt in bed. informed nurse that pt needs to be cleaned up. PT-Balance Assessment Sitting Balance and Reactions Static Sitting Balance Ability Good Dynamic Sitting Balance Ability Fair Standing Balance and Reactions Static Standing Balance Ability Poor Dynamic Standing Balance Ability Poor Device Used hemiwalker M5 PT-IP Objective Assessments Start: 01/25/24 11:40 Freq: NEEDED Status: Active Protocol: Document 01/25/24 10:05 AB (Rec: 01/25/24 11:57 AB [id number]) Orientation Orientation/Cognition Level of Alertness Alert Orientation Name,Year,Place,Situation Safety Awareness Decreased Safety Awareness Memory Description Short Term Impaired Gross Range of Motion Lower Extremity ROM Assessment Within Functional Limits Strength Lower Extremity Strength Assessment Bilaterally Impaired Hip 3-/5 Knee 3+/5 Coordination Assessment Gross Coordination Gross Coordination WNL Sensation Assessment Sensation Gross Sensation WNL Muscle Tone Muscle Tone WNL Yes M6 PT-IP Treatment Start: 01/25/24 11:40 Freq: NEEDED Status: Active Protocol: Document 01/25/24 10:05 AB (Rec: 01/25/24 11:57 AB [id number]) Physical Therapy Treatment Education Education Provided Precautions,Weight Bearing Status,Post-Op Packet,Safety M7 PT-IP Assessment and Plan Start: 01/25/24 11:40 Freq: NEEDED Status: Active Protocol: Document 01/25/24 10:05 AB (Rec: 01/25/24 11:57 AB [id number]) PT Summary Assessment and Plan Potential Rehabilitation Potential Fair Status of Condition at Evaluation Evolving Summary Impairments Pain,ROM,Strength,Balance, Coordination,Sensation,Tone, Cognition,Bed Mobility, Transfers,Gait,Activity Tolerance Assessment Summary pt is an 78 y/o M who presented to the ED s/p fall. pt with alcohol abuse and had a fall. pt sustained a L humeral head fx and also has a T6 compression fx. pt with LUE sling and is NWB on LUE. pt requiring max A x 2 for step transfer using hemiwalker . pt requires 24/7 assist and will benefit from SNF rehab. will continue to assess progress. Goals Bed Mobility Goal Minimal Assistance Transfer Goal Minimal Assistance Gait Goal Minimal Assistance,Donny Walker Gait Distance 25 Other Goals improve bed mobility, transfers,ambulation using LRAD ~ 150 ft mod I up/down 2 steps R rail ascending SBA Days to Meet Goals 10 Frequency of Treatment Frequency Of Treatment Once a Day Treatment Plan Physical Therapy Treatment Plan Bed Mobility Training,Transfer Training,Gait Training, Therapeutic Exercise,Balance Retraining,Discharge Planning, Hot or Cold Pack,Neuromuscular Re-ed,Coordination Retraining ,Manual Therapy Precautions Shoulder Precautions Sling Weight Bearing Status Weight Bearing Status Non-Weight Bearing Allowed Weight Bearing Amount (enter % LUE NWB or #) (%) Recommendations To Nursing Amount of Assist Needed 2 Person Assist Discharge Recommendations PT Discharge Recommendations SNF Rehab Transportation Needs at Discharge Wheelchair/Cabulance
--- NOTE | 2024-01-25 10:53 | OT.IP.EVAL ---
Past Medical History (Last Reviewed 01/24/24 @ 23:51 by Aime Sommers MD) Arterial embolism of left leg Atrial fibrillation (04/24/16) COPD (chronic obstructive pulmonary disease) Essential hypertension (11/01/17) Gout Peripheral neuropathy Peripheral vascular disease Pure hypercholesterolemia (04/24/16) Retinal detachment Systolic congestive heart failure (04/24/16) Surgical History (Last Reviewed 01/24/24 @ 23:51 by Aime Sommers MD) Anesthesia History of cataract removal with insertion of prosthetic lens History of eye surgery History of surgery Occupational Therapy Inpatient Evaluation/Re-Eval M1 PT/OT-IP Prior Functional Status Start: 01/25/24 11:40 Freq: NEEDED Status: Active Protocol: Document 01/25/24 15:20 CGR (Rec: 01/25/24 15:33 CGR [id number]) Medical Review Prior Functional Status Medical History Reviewed Yes Communication Pt was an effective verbal communicator Mobility and Gait pt stated that he was independent with all mobilities and ambulation without AD Activities of Daily Living and IADL's Pt states that he was IND in all ADLs and 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 Social History Household Members none Living Arrangements House Number of Floors (Floors) Two Floors Number of Stairs To Enter/Railing? pt stated that he can stay on main level of the house has 2 steps R rail ascending to enter the house Home Environment Standard Height Toilet,Walk in Shower,Tub/Shower Doors Home Equipment Straight Cane,Shower Seat without Backrest,Hand Held Shower,Grab Bars In Shower Additional Social History Comment pt stated that he usually sleeps on his couch M2 OT-IP Current Condition Start: 01/25/24 15:16 Freq: Status: Active Protocol: Document 01/25/24 15:20 CGR (Rec: 01/25/24 15:33 CGR [id number]) Occupational Therapy Current Condition Current Condition Evaluation Date 01/25/24 Treatment Diagnosis generalized weakness, fall, L shld fx Diagnosis Onset Date 01/24/24 Post Operative Precautions Shoulder Precautions Sling,No External Rotation,No Abduction Weight Bearing Status Weight Bearing Status Non-Weight Bearing M3 OT- IP Subjective and Pain Start: 01/25/24 15:16 Freq: Status: Active Protocol: Document 01/25/24 15:20 CGR (Rec: 01/25/24 15:33 CGR [id number]) OT- Subjective Occupational Therapy Visit Type Type Initial Evaluation Visit Start Time 10:04 Visit Stop Time 10:53 Notes partial co-treat with P.T. Occupational Therapy Visit Comments Patient Comments I need to poop OT Pain Assessment Pain When Pain Assessed At Rest Pain Present Pain Present Denied Pain M4 OT- IP ADL's Start: 01/25/24 15:16 Freq: Status: Active Protocol: Document 01/25/24 15:20 CGR (Rec: 01/25/24 15:33 CGR [id number]) OT [id number] Comments OT Self-Feeding Comments not meal time OT ADL-Grooming Comments OT Grooming Comments pt declined to perform OT ADL-Oral Care Comments Oral Care Comments pt declined to perform OT ADL-Dressing General Eval Upper Body Dressing Ability Total Assistance Lower Body Dressing Ability Total Assistance Areas Needing Assistance Pull-Over Shirt,Underpants/ Brief,Socks,Orthosis/ Prosthesis Comments OT Dressing Comments Doffed tshirt and donned hospital gown. donned and doffed breif and socks. donned sling OT ADL-Toileting General Evaluation Toileting Ability Total Assistance Areas Needing Assistance Manage Clothing,Perform Perineal Hygiene Comments OT Toileting Comments Pt had bm x 3 during session OT ADL-Bathing Comments OT Bathing Comments pt declined to perform M5 OT- IP IADL's Start: 01/25/24 15:16 Freq: Status: Active Protocol: Document 01/25/24 15:20 CGR (Rec: 01/25/24 15:33 CGR [id number]) OT-Instrumental Activities of Daily Living Deficits IADL Deficits Identified Deficits Home Safety Awareness Awareness of Need for Assistance at Home Decreased Awareness Ability to Problem Solve Emergency Unable to Problem Solve Situations Medication Management Medication Management Comments concerns regarding pts ability to perform Money Management Money Management Comments concerns regarding pts ability to perform Meal Preparation Meal Preparation Comments concerns regarding pts ability to perform Wrapper Cashier Wrapper Cashier Comments concerns regarding pts ability to perform Driving Driving Comments concerns regarding pts ability to perform M6 OT- IP Functional Cognition Start: 01/25/24 15:16 Freq: Status: Active Protocol: Document 01/25/24 15:20 CGR (Rec: 01/25/24 15:33 CGR [id number]) Cognitive Factors Limiting Selfcare Function Cognitive Ability Level of Alertness Alert Patient Orientation Name,Age,Birthday,Month,Year, Day of Week,Place,Situation Attention Span Ability Capable of Focused Attention, Capable of Sustained Attention Ability to Follow Commands Able to Follow One Step Commands with Increased Time, Able to Follow One Step Commands with Repetition Cognitive Comments Cognitive Assessment Comments Pt may benefit from formal cog assessment OT- Vision and Hearing OT- Hearing Assessment OT- Hearing Assessment WFL OT- Vision Assessment Visual Acuity Glasses For Reading Visual Attentiveness WFL Occular Pursuits WFL Visual Convergence Impaired M7 OT- IP Mobility and Balance Start: 01/25/24 15:16 Freq: Status: Active Protocol: Document 01/25/24 15:20 CGR (Rec: 01/25/24 15:33 CGR [id number]) OT- Bed Mobility Assessment Supine to Sit Supine to Sit Assist Maximum Assistance,1 Person Assistance Sit to Supine Sit to Supine Assist Maximum Assistance,1 Person Assistance Scooting Scooting to Edge of Bed Maximum Assistance,1 Person Assistance OT-Transfer Assessment Sit to and From Stand Sit to and from Stand Maximum Assistance,1 Person Assistance,2 Person Assistance Transfers Transfer Ability Maximum Assistance,1 Person Assistance,2 Person Assistance Technique Transfer Destination Bed,Bedside Commode,Chair Transfer Technique Stand Step Pivot Devices Transfer Assistive Devices Gait Belt,Donny Walker Comments Mobility Comments Pt was able to stand and take piviting steps wtih max a to chair then to BSC then back to chair before returning to bed OT- Gait Assessment Comments Gait Ability Comments not tested OT- Balance Assessment Sitting Balance and Reactions Static Sitting Balance Ability Good Dynamic Sitting Balance Ability Fair M8 OT- IP Objective Assessments Start: 01/25/24 15:16 Freq: Status: Active Protocol: Document 01/25/24 15:20 CGR (Rec: 01/25/24 15:33 CGR [id number]) OT Gross Range of Motion Upper Extremity Range of Motion Assessment Left Impaired ROM Impairments L fx OT Strength Comments Strength Comments L arm not tested d/t L shld fx . RUE grossly 4-/5 OT- Coordination Assessment Upper Extremity Finger to Nose Test Left UE Impaired Finger Tapping Test Left UE Impaired OT-Muscle Tone Assessment Muscle Tone WNL Yes OT Sensation Assessment Edema Edema Absent M9 OT- IP Assessment and Plan Start: 01/25/24 15:16 Freq: Status: Active Protocol: Document 01/25/24 15:20 CGR (Rec: 01/25/24 15:33 CGR [id number]) OT Summary Assessment and Plan Potential Rehabilitation Potential Fair Analytic Complexity at Evaluation High Summary OT Impairments Range of Motion,Strength, Balance,Coordination, Functional Cognition, Functional Mobility,Grooming, Dressing,Toileting,Bathing, Toilet Transfers,Shower Transfers,Activity Tolerance Progress Towards Goals Slow Progress due to Medical Issues Assessment Summary Pt presents as a high complexity evaluation s/p admit for fall with L shld fx and L hip pain. Pt needed max x1-2 for transfers on this date and total assist for BM. Pt will need SNF upon discharge or 24 hour care at home depending on his progress . Per CM, pt will likely refuse SNF and possibly refuse home health. Goals Self-Feeding Goal Independent Grooming Goal Independent Dressing Goal Independent Toileting Goal Independent Bathing Goal Independent Toilet Transfer Goal Independent Shower Transfer Goal Independent Days to Meet Goals 20 Frequency of Treatment Frequency Of Treatment Once a Day Treatment Plan OT Treatment Plan ADL Training,Functional Cognition Training,Functional Mobility,Patient/Family Education,Discharge Planning Other Treatment Recommendations and Next ADLs seated, endurance, Treatment Focus transfers Discharge Recommendations OT Discharge Recommendations SNF Rehab Transportation Needs at Discharge Private Vehicle,Wheelchair/ Cabulance
--- NOTE | 2024-01-25 11:06 | CM.DANOTE ---
Initial DCP Assessment Note Pt is an 78 yo male, resident of [place], presents with family after they found him last night on the floor, unable to get up. Half empty bottle of whiskey found near patient. Family brought him in next day with complaint of persistent generalized weakness. PCP: Jeferson Shine Payer: [facility] Reviewed chart, pt discussed in multidisciplinary rounds this morning. Patient is likely to remain admitted tonight and over the next 24-48 hours potentially for continued work up, PT/OT, ARUN. Patient with altered mental status this morning; placed call to daughter Ros P [phone] to complete initial assessment. According to our conversation: Patient lives alone in [place], drives occasionally. Patient has drank all of Ros's life and she cannot remember him ever being sober. Exact amount unknown. Patient starts his morning with whiskey in his coffee. Daughters Aruna and Ros threw out two full bottles of whiskey from patient's house. Patient will also drink [place] hard lemonade. Daughter Aruna lives in [place], daughter Ros lives in [place] and works family service assistant. Aruna has DPOA and will work on emailing this HUMAN RESOURCES EXECUTIVE ASSISTANT a copy for 's records. Aruna reports that patient has been a functional alcoholic and a happy go johanne izabel that has been indp in all aspects. Cognition: patient has confused days per daughter when patient seems out of it. Patient can get drunk at times although not very often. Discussed s/ sx of potential Wernickes dementia and encouraged daughter to research this disease process. Discussed dispo options. OT currently recommending SNF, patient is a 2 person max assist. Daughter would like to see patient in a SNF setting, reports patient may not agree to this. Explained that if : 1. patient not agreeable to SNF 2. SNF cannot be secured and/or [facility] does not approve then patient may be admitted until he can be discharged home w/home health services and family to assist as able. Daughter states understanding. Provided contact information for community statement clerk Fernando Ardon Community Fork Operator [facility] Department Office: Plan: SNF vs Home w/HH, family CM team following closely for coordination of the safest discharge plan available to patient, and one patient is agreeable to. JOSE RAMON Murcia Discharge Planning/Care Management CM Discharge Assessment Start: 01/25/24 10:34 Freq: Status: Active Protocol: Document 01/25/24 10:34 ISRAEL (Rec: 01/25/24 11:06 ISRAEL [id number]) Discharge Planning Assessment Assigned Nursing Secretary JOSE RAMON Carias DPOA/Assigned Designee Name [place], daughter Contact Information [phone] Advance Directives? Yes: Daughter Ros working on obtaining DPOA ppk for Advance Directives on File No History Provided By Patient,Medical Record Prior Living Arrangements House Household Members none Type of transporation used prior to Drives own vehicle admit Comment Daughter reports re driving: not a lot Independent with ADL's Yes: Has been indp, functional alcoholic until found down Is patient alert and oriented? Yes: Some days of confusion per daughter Comment indp in all ADLs, does not maintain proper nutrition Patient/Family Preference Home with Home Health Barriers to Discharge Yes Comment See narrative Discharge Plan Home with Home Health Transportation Arrangement Family Referrals Initiated Home Health,Other Additional Comment if patient agreeable, information for community statement clerk Fernando Ardon provided to daughter/DPOA Ros
--- NOTE | 2024-01-25 11:39 | DIET.CONS ---
Dietary Consultation Note Admission Date: 01/24/2024 21:04 Assessment: 78 y M presents with generalized weakness and frequent falls. PMH of alcohol abuse and CHF. Nutrition screened for low MNA. Met with pt at bedside. Reports appetite has been decreased for past couple of years, no recent/sudden weight loss, but some weight loss over the past couple years. Dietary recall: B-toast and honey L-daughter brings prepared meal (such as corn, potatoes, meat) Nutrition focused physical exam: Muscle mass: -Severe loss in temporalis -Severe loss in interosseous (pt in sling, clavicle region not done) Subcutaneous fat loss: -Severe loss in buccal fat pads -Severe loss in orbital fat pads Ht: 167.64 cm Wt: 58.06 kg BMI: 20.6 UBW: 54-58 kg per pt Last BM: 01/25/24 (01/25/24 10:33) MNA: 8 Misael Score: 16 Diet: 01/24/24 Breakfast Heart Healthy Diet Diet Modifications: Nutrition Percent Meal Consumed 50% 01/25/24 09:40 Labs: RBC 3.58 X10^6/uL (4.5-5.9) L 01/25/24 05:50 Hgb 11.4 g/dL (13.5-17.5) L 01/25/24 05:50 Hct 34.4 % (41-53) L 01/25/24 05:50 Creatinine 1.04 mg/dL (0.66-1.25) 01/25/24 05:50 Lactate 1.6 mmol/L (0.7-2.1) 01/24/24 19:28 Nutrition Diagnosis: Severe Chronic Protein Calorie Malnutrition r/t to decreased energy intake and increased protein needs with CHF as evidenced by severe muscle wasting (temporalis, interosseous) and severe subcutaneous fat loss (buccal and orbital fat pads), <75% of estimated energy requirements for >1 month, BMI 20.6 (underweight for age), and substance abuse. The patient is at much higher risk for medical and surgical complications because of their malnutrition. This increases the difficulty and complexity of medical and surgical interventions and increases the chances of poor outcomes such as morbidity and mortality. Interventions: 1. Ordered Ensure Plus/Enlive Vanilla BID 2. Provided high kcal/high protein MNT for meeting energy needs -Discussed options for evening meal and realistic protein options to add to breakfast EER: -[id number] kcals/day (30 kcals/kg) -80-90 g protein/day (1.37-1.5 g/kg) Monitoring/Evaluations: PO intakes, weight, tolerance to ONS Electronically Signed by: Fley Wallace 01/25/24 11:39 [address] [id number]
--- NOTE | 2024-01-25 13:38 | PM.PN.1 ---
Subjective Subjective Date Patient Seen: 10/31/22 Interval history: 78M with PMH COPD not on oxygen, afib, arterial emboli of leg, HTN, CHFrEF, alcohol use admitted with a left humeral fracture after a fall. Discussed with orthopedics today, whom recommended MRI of his left shoulder for further evaluation of his rotator cuff which can effect outpatient planning. Recommended continued sling and PT/OT and outpatient follow up. Exam Vital Signs (past 8 hours): - 01/25/24 06:00 01/25/24 11:00 Temperature 97.8 F Pulse Rate 97 H 89 Respiratory Rate 19 18 Blood Pressure 113/67 119/70 Pulse Oximetry 93 99 Oxygen Flow Rate 1 2 Fraction of Inspired Oxygen 21 SaO2/FiO2 Ratio 438 Oxygen Delivery Method Room Air Oxygen Flow Rate 2 Narrative Exam Narrative: Gen: Thin, elderly male, L arm in sling, no acute distress. CV: RRR, no m/r/g Pulm: CTA b/l Abd: S NT ND Ext: thin, no edema. Objective Labs 01/25/24 05:50 01/25/24 05:50 Labs: Laboratory Results - last 24 hr 01/24/24 01/24/24 01/24/24 16:51 17:40 19:28 WBC 10.2 RBC 4.14 L Hgb 13.1 L Hct 39.4 L MCV 95.1 MCH 31.7 MCHC 33.3 RDW 13.9 Plt Count 208 Neut % (Auto) 76.4 H Lymph % (Auto) 15.4 L [facility] % (Auto) 7.8 Eos % (Auto) 0.1 L Baso % (Auto) 0.3 Neut # (Auto) 7800 H Lymph # (Auto) 1600 [facility] # (Auto) 800 Eos # (Auto) 0 Baso # (Auto) 0 PT 18.5 H INR 1.6 H Sodium 138 Potassium 3.6 Chloride 97 L Carbon Dioxide 34 H BUN 24 H Creatinine 1.35 H Estimated GFR 53 L BUN/Creatinine Ratio 17.8 Glucose 114 H Lactate 2.1 1.6 Calcium 9.0 Phosphorus Magnesium 1.4 L Total Bilirubin 1.5 H AST 42 ALT 27 Alkaline Phosphatase 139 H Ammonia < 9 L Total Creatine Kinase 183 H Troponin I 0.016 Total Protein 7.0 Albumin 3.8 Globulin 3.2 Albumin/Globulin Ratio 1.2 Lipase 73 Ethyl Alcohol < 10 01/25/24 05:50 WBC 7.4 RBC 3.58 L Hgb 11.4 L Hct 34.4 L MCV 96.1 MCH 31.9 MCHC 33.2 RDW 13.6 Plt Count 161 Neut % (Auto) 74.3 Lymph % (Auto) 18.1 L [facility] % (Auto) 7.4 Eos % (Auto) 0.0 L Baso % (Auto) 0.2 Neut # (Auto) 5500 Lymph # (Auto) 1300 [facility] # (Auto) 500 Eos # (Auto) 0 Baso # (Auto) 0 PT INR Sodium 137 Potassium 3.4 Chloride 103 Carbon Dioxide 33 H BUN 25 H Creatinine 1.04 Estimated GFR > 60 BUN/Creatinine Ratio 24.0 H Glucose 86 Lactate Calcium 8.1 L Phosphorus 3.4 Magnesium 2.0 Total Bilirubin 1.4 H AST 37 ALT 22 Alkaline Phosphatase 115 Ammonia Total Creatine Kinase 160 Troponin I Total Protein 5.9 L Albumin 3.1 L Globulin 2.8 Albumin/Globulin Ratio 1.1 Lipase Ethyl Alcohol [facility] Medical History Gout COPD (chronic obstructive pulmonary disease) Peripheral neuropathy Retinal detachment Peripheral vascular disease Essential hypertension (11/01/17) Pure hypercholesterolemia (04/24/16) Systolic congestive heart failure (04/24/16) Atrial fibrillation (04/24/16) Arterial embolism of left leg Surgical History Anesthesia History of surgery History of eye surgery History of cataract removal with insertion of prosthetic lens Family History Father History of heart disease Sister Cancer Social History household members: none Smoking Status: Former smoker alcohol intake: current Assessment & Plan Assessment & Plan narrative: Markos Savage is an 78yo male with history of alcohol use, atrial fibrillation on Eliquis, HTN, COPD, PVD, CHF and tobacco use who presented with a ground level fall yesterday and continued inability to ambulate since the fall. # Ambulatory Dysfunction: # Ground Level Fall: # Lower Extremity Weakness with history of T6 Compression Fracture: His fall yesterday was likely secondary to alcohol intoxication though does have bilateral weakness with T6 compression fracture. Will assess with MR of T spine to make sure no spinal pathology and at the same time perform L shoulder MR as indicated with left humeral fracture after discussion with orthopedics. - Treat alcohol and hypomagnesemia as noted below. - PT/OT consulted. - Given his lower extremity weakness and history of T6 compression fracture, will check thoracic spine MRI to rule out acute issue, though he does not have other clinical signs of cord compression. # Alcohol Abuse: Unclear how much he truly drinks in a given day/week, he only endorses 3-4 norbert's hard lemonade a day today. Denies prior seizure or shaking when not drinking. - Place on CIWA protocol for now to monitor trend. - PRN Ativan for now, but if CIWA scale increases can consider Librium. - Continue PO Thiamine and Folate. - Encourage cessation. # Hypomagnesemia: - Received replacement in the ED. - Repeat magnesium level now 2. # Left Humeral Head Fracture: Mildly displaced per x-ray. - Continue sling. Non-operative with outpatient management for now, discussed with orthopedics whom recommended MRI for this patient for further evaluation for possible rotator cuff injury. - PRN Hydrocodone. # Atrial Fibrillation, Persistent: - continue home Metoprolol and Eliquis. # Essential Hypertension: Controlled. - Continue home metoprolol XL and lisinopril. # Chronic HFrEF: Last LVEF was 30% via TTE in 2022. No acute component at this time. - No indication for repeat TTE at this time. - Continue home metoprolol XL, lisinopril, atorvastatin. Holding furosemide and spironolactone for now, consider resuming in 1-2 days. #tobacco use - nicotine patch ordered #malnutrition - dietary consultation ordered, suspect severe chronic protein calorie malnutrition given his muscle wasting and weakness. Code Status: Full Code, surrogate is patient's daughter. DVT: on Eliquis Dispo: admitted as inpatient, his stay is expected to exceed two midnights. Quality VTE Deep Vein Thrombosis/Pulmonary Embolism Present on Admission: No
[2024-01-25] MEDS: NICOTINE 14 PATCH 14 MG TOP (15:01)
[2024-01-25] MEDS: ATORVASTATIN 20 MG TABLET 80 MG PO (21:15)
[2024-01-26] VITALS (35 sets, daily range): BP systolic 64–144; BP diastolic 38–89; PULSE 51–149; RESP 16–40; TEMP 36.1–37.1; O2SAT 81–100
[2024-01-26] MEDS: LORazepam 1 MG TABLET PO ×2 (02:24→12:20)
[2024-01-26 06:55] LABS: BUN Creatinine Ratio 31.5 (6-22); Blood Urea Nitrogen 29 mg/dL (9-20); Calcium 8.8 mg/dL (8.4-10.2); Carbon Dioxide 30 mmol/L (22-32); Chloride 106 mmol/L (98-107); Estimated Glomerular Filt Rate > 60 mL/min (>60); Glucose 83 mg/dL (80-110); HEMOLYSIS 30 (0-50); Potassium 4.5 mmol/L (3.4-5.1); Sodium 140 mmol/L (137-145)
--- NOTE | 2024-01-26 08:25 | P.PN_ITS ---
Subjective Subjective Date Patient Seen: 01/26/24 Interval history: He is seen in his room here today follow-up his left humeral fracture, altered mental status and T7 compression fracture. He was found down in his entry way by his family several days ago. Initially he refused come to the hospital but after about 24 hours he was convinced. His mentation is slowly starting to come around. He recognizes me from prior social interactions. He appears much weaker than his baseline. On my exam today he has crackles on the left lung. A chest x-ray shows a right-sided infiltrate. He will be started on ceftriaxone. Brain MRI shows no new stroke. The lumbar spine MRI report is still pending. The left shoulder MRI has been deferred as it was felt more important to get a good scan of the brain today. His daughter is visiting and her questions are answered. He is pending placement at assisted facility if his insurance approves. His daughter lives in [place] and he lives alone with a large dog. The T6 fracture is suspected to be chronic and not acute. Exam Vital Signs (past 8 hours): - 01/26/24 06:00 Temperature 97.8 F Pulse Rate 62 Respiratory Rate 17 Blood Pressure 144/86 H Pulse Oximetry 96 Oxygen Flow Rate 3 Fraction of Inspired Oxygen 21 SaO2/FiO2 Ratio 438 Oxygen Delivery Method Nasal Cannula Oxygen Flow Rate 3 Narrative Exam Narrative: Diminished mental status and interaction. Voice volume is low. He appears very weak. Left lung crackles, clear on the right. Heart is regular rate and rhythm without murmur. Extremities have no ankle edema. Normal range of motion of both hips and knees without pain during my exam. Left upper arm pain present when the elbow is manipulated. Objective Labs 01/25/24 05:50 01/26/24 06:29 Labs: Laboratory Results - last 24 hr 01/26/24 06:29 Sodium 140 Potassium 4.5 Chloride 106 Carbon Dioxide 30 BUN 29 H Creatinine 0.92 Estimated GFR > 60 BUN/Creatinine Ratio 31.5 H Glucose 83 Calcium 8.8 [facility] Medical History Gout COPD (chronic obstructive pulmonary disease) Peripheral neuropathy Retinal detachment Peripheral vascular disease Essential hypertension (11/01/17) Pure hypercholesterolemia (04/24/16) Systolic congestive heart failure (04/24/16) Atrial fibrillation (04/24/16) Arterial embolism of left leg Surgical History Anesthesia History of surgery History of eye surgery History of cataract removal with insertion of prosthetic lens Family History Father History of heart disease Sister Cancer Social History household members: none Smoking Status: Former smoker alcohol intake: current Assessment & Plan Assessment & Plan narrative: Markos Savage is an 78yo male with history of alcohol use, atrial fibrillation on Eliquis, HTN, COPD, PVD, CHF and tobacco use who presented with a ground level fall yesterday and continued inability to ambulate since the fall. # Ambulatory Dysfunction: # Ground Level Fall: # Lower Extremity Weakness with history of T6 Compression Fracture: His fall yesterday was likely secondary to alcohol intoxication though does have bilateral weakness with T6 compression fracture. Will assess with MR of T spine to make sure no spinal pathology and at the same time perform L shoulder MR as indicated with left humeral fracture after discussion with orthopedics. - Treat alcohol and hypomagnesemia as noted below. - PT/OT consulted. - Given his lower extremity weakness and history of T6 compression fracture, will check thoracic spine MRI to rule out acute issue, though he does not have other clinical signs of cord compression. -defer left shoulder MRI for now # Alcohol Abuse: Unclear how much he truly drinks in a given day/week, he only endorses 3-4 norbert's hard lemonade a day today. Denies prior seizure or shaking when not drinking. - Place on CIWA protocol for now to monitor trend. - PRN Ativan for now, but if CIWA scale increases can consider Librium. - Continue PO Thiamine and Folate. - Encourage cessation. # Hypomagnesemia: - Received replacement in the ED. - Repeat magnesium level now 2. # Left Humeral Head Fracture: Mildly displaced per x-ray. - Continue sling. Non-operative with outpatient management for now, discussed with orthopedics whom recommended MRI for this patient for further evaluation for possible rotator cuff injury. - PRN Hydrocodone. -shoulder MRI deferred for now # Atrial Fibrillation, Persistent: - continue home Metoprolol and Eliquis. # Essential Hypertension: Controlled. - Continue home metoprolol XL and lisinopril. # Chronic HFrEF: Last LVEF was 30% via TTE in 2022. No acute component at this time. - No indication for repeat TTE at this time. - Continue home metoprolol XL, lisinopril, atorvastatin. Holding furosemide and spironolactone for now, consider resuming in 1-2 days. # Right Sided Pneumonia - New infiltrates on CXR 01/26/24 - Ceftriaxone 1 gm Q24h #tobacco use - nicotine patch #malnutrition - dietary consultation ordered, suspect severe chronic protein calorie malnutrition given his muscle wasting and weakness. Nutrition diagnosis: Severe Chronic Protein Calorie Malnutrition r/t to decreased energy intake and increased protein needs with CHF as evidenced by severe muscle wasting (temporalis, interosseous) and severe subcutaneous fat loss (buccal and orbital fat pads), <75% of estimated energy requirements for >1 month, BMI 20.6 (underweight for age), and substance abuse. Will continue with dietary treatment recommendations and supplemental nutrition orally. Code Status: Full Code, surrogate is patient's daughter. DVT: on Eliquis Quality VTE Deep Vein Thrombosis/Pulmonary Embolism Present on Admission: No
[2024-01-26] MEDS: HYDROCODONE/ACET 5/325 TABLET 1 TAB PO (09:15)
[2024-01-26] MEDS: METOPROLOL ER 50 MG TABLET PO (09:15)
[2024-01-26] MEDS: MULTIVITAMIN 1 TABLET 1 TAB PO (09:15)
[2024-01-26] MEDS: FOLIC ACID 1 MG TABLET PO (09:15)
[2024-01-26] MEDS: THIAMINE 100 MG TABLET PO (09:16)
[2024-01-26] MEDS: APIXABAN 5 MG TABLET 2.5 MG PO (09:16)
[2024-01-26] MEDS: lisinopriL 5 MG TABLET PO (09:16)
[2024-01-26] MEDS: NICOTINE 14 PATCH 14 MG TOP (09:16)
--- NOTE | 2024-01-26 10:59 | DI.RAD.S_ITS ---
PROCEDURE: XR CHEST 1V INDICATIONS: lung Crackles TECHNIQUE: One view of the chest was acquired. COMPARISON: Located [facility], CR, XR CHEST 1V, 01/24/2024, 17:12. FINDINGS: Surgical changes and devices: None. Lungs and pleura: Subtle airspace opacities are noted in right mid and lower lung solitario. Trace right pleural effusion is seen. No pneumothorax. Chronic emphysematous changes also noted. Mediastinum: Mediastinal contours appear normal. Heart size is enlarged. Bones and chest wall: No suspicious bony lesions. Overlying soft tissues appear unremarkable. IMPRESSION: Suggestion of patchy infiltrates in right mid and lower lung solitario. Trace right pleural effusion. COPD. No pneumothorax. Dictated by: Neil Younger M.D. on 01/26/2024 at 11:32 Approved by: Neil Younger M.D. on 01/26/2024 at 11:32
--- NOTE | 2024-01-26 13:16 | DI.MRI.S_ITS ---
PROCEDURE: MR HEAD/BRAIN WO CON INDICATIONS: Altered Mental Status rule out CVA TECHNIQUE: Non-contrast axial T1 spin echo, axial T2 fast spin echo, sagittal and axial FLAIR, coronal T2 fast spin echo, axial gradient echo, axial diffusion and ADC through the brain. COMPARISON: [facility], CT, CT HEAD/BRAIN WO CON, 01/24/2024, 17:10. FINDINGS: Image quality: Diagnostic. Patient motion is noted.. CSF spaces: Ventricles appear symmetric in size and shape. Basal cisterns are patent. No extra-axial fluid collections. Brain: No intracranial bleeds or mass effects. There is cerebral volume loss for age. There are periventricular and deep white matter chronic small vessel ischemic changes. Brainstem appears normal. Diffusion-weighted images show no acute infarct. No chronic ischemic insults. Normal intravascular flow voids are present. Skull and face: Calvarial bone marrow is normal in signal. Orbits are normal. Sinuses: Sinuses and mastoids are clear. IMPRESSION: 1. No acute infarction. No acute intracranial bleed, midline shift or mass effect. 2. Age related volume loss and [id number] white matter chronic ischemic small vessel disease. Dictated by: Neil Younger M.D. on 01/26/2024 at 13:40 Approved by: Neil Younger M.D. on 01/26/2024 at 13:41
--- NOTE | 2024-01-26 13:43 | PT-IP ANOTE ---
Per RN pt is not appropriate for PT at this time. Pt had just had an MRI and is not alert to participate with PT and RN would like him to rest. PT will check on pt tomorrow.
--- NOTE | 2024-01-26 14:36 | CM.DPNOTE ---
Addendum entered by JOSE RAMON Banuelos 01/26/24 14:54: ADD: [facility] accepts as long as patient off CIWA protocol and is aware he cannot smoke at SNF. [facility] bed availability starting Sunday. Original Note: DCP Cont Met w/patient and daughter Ros in room. Patient sleepy and cannot maintain wakefulness for this conversation. Daughter states patient is going down for MRI soon and has been medicated. Reviewed discharge plan; daughter requests referrals to SNFs begin today to assess for bed availability and to see what SNF options may be available to patient. Educated that CM team will plan to call [facility] when closer to discharge date and after there has been a response from skilled facilities, daughter states understanding. Daughter hopeful that patient will soon be alert enough to review discharge plan; daughter would like to encourage patient to discharge to SNF for short term recovery with return home w/family and HH thereafter. Referrals placed to [facility] contracted facilities: [facility] (discussed with Aide), [facility] (emailed [facility]), [facility] (discussed with Laverne and faxed referral) and [facility] (faxed to Bob[facility] in admissions). CM team will need to follow clinical course closely, anticipated discharge date unknown at this time. Plan: Discharge home with family and HH, referral to community digital marketing manager [facility] may be appropriate if patient is not agreeable to SNF (?) vs SNF- if one can be secured and [facility] auth obtained. Need PASRR if SNF. ISRAEL
[2024-01-26] MEDS: cefTRIAXone 1,000 MG in SODIUM CHLORIDE 0.9% 100 ML 200 MG IV (15:45)
[2024-01-26] MEDS: ONDANSETRON 4 MG/2 ML INJ IV (18:06)
--- NOTE | 2024-01-26 18:34 | DI.RAD.S_ITS ---
PROCEDURE: XR CHEST 1V INDICATIONS: Aspiration TECHNIQUE: One view of the chest was acquired. COMPARISON: [facility], CR, XR CHEST 1V, 01/24/2024, 17:12. [facility], CR, XR CHEST 1V, 01/26/2024, 11:09. FINDINGS: Surgical changes and devices: None. Lungs and pleura: On this semiupright portable chest examination, no large pneumothorax or large pleural effusions are seen. No focal infiltrates are seen. Mediastinum: Mediastinal contours appear normal. Heart size is normal. Atherosclerotic calcification of the aortic arch is noted. Bones and chest wall: No suspicious bony lesions. At least 1 remote right posterior rib fracture can be seen. Age-appropriate bony degenerative changes are seen. Overlying soft tissues appear unremarkable. IMPRESSION: No focal infiltrates are seen. If there is strong clinical concern for developing aspiration pneumonia in this patient, please consider a short term followup examination, as aspiration pneumonia can have a delayed radiographic appearance. Dictated by: Beau Kaiser M.D. on 01/26/2024 at 18:26 Approved by: Beau Kaiser M.D. on 01/26/2024 at 18:27
--- NOTE | 2024-01-26 18:35 | PC.NURSE ---
Respiratory: Pt suddenly had nausea after dinner and vomited at 1745. Pt suddenly much courser in his lung sounds, sats decreased to mid 80's. HOB elevated, O2 is on at 3L NC, hx of copd and smoking, RR increased to 40, using abd and accessory muscles to breath. Dr. Cabrera made aware and he came to see pt. He received zofran which he said was helpful. Pt RR did decrease to 36 but still having labored breathing. Then had a decrease in his heart rate down to the mid 50's verified by ausultation. With in minutes the heart rate was back up to the 90's to 120's. However during that time pt was quite pale and kept saying he didnt feel good. Does have a history of a-fib. Yesterday heart rate had been elevated to the 120's when he was moving around, otherwise 80's to 100's. Using accessory and abd muscles to breath. RT is here, he is more mottled at the knees now then he was before. RT went to go get a mask for pt. Dr. Cabrera made aware pt is not improving, lungs sound courser bilat, Using all muscles to breath. Mottling has lessened on the lower extremities. has a very course loose non productive cough. Dr Cabrera ordered pt to be moved to ICCU. Transfered to ICCU w/RT and Annel RN and Roe RN at 1840. Pt was on a mask and went with his O2. Hiral RN in ICCU did not want report since it was close to change of shift time but she is getting pt settled in the ICCU. Emperatriz called at 1920 and report given. Ros king had been with pt most of day in room. she had left for a short time while MRI and other tests completed. She arrived back to the room after pt had received his zofran. She was updated on MR. Hoskins current and change in condition. She confirmed pt was a full code at this time. Dr. Cabrera called Ros to update her on the plan of care. Ros was with Mr Savage when he was moved to the ICU. She was contacting other family members.
--- NOTE | 2024-01-26 19:11 | DI.ECHO.S_ITS ---
[facility] +---------+ : : [id number] : [place] : : : : [id number] : : : : Phone: [phone]+ Echocardiogram Report + + :Name: MILTON ATKINS Study Date: 01/27/2024 Height: 66 in : :[facility] ReadingLocation: Weight: 128 lb : : Gender: Male BSA: 1.7 m2 : :: 1945 Age: 78 yrs BP: 139/76 mmHg: :Reason For Study: RESPIRATORY FAILURE : :Ordering Physician: IAN FALCON : : Performed By: Suellen Ferguson : :Referring: IAN FALCON MD : + + Interpretation Summary The patient was in atrial fibrillation with heart rates between 64-94 bpm during the exam. The left ventricle is grossly normal size. The ejection fraction is estimated to be 40-45%. Left ventricular systolic function has mildly improved compared to the previous exam. The right ventricle is moderately dilated. Right ventricular systolic function is mild to moderately reduced. There is mild to moderate mitral regurgitation. Compared to the prior echo study, there has been an increase in the severity of mitral regurgitation. The aortic valve is trileaflet. There is mild to moderately reduced leaflet mobility. There is no hemodynamically significant valvular aortic stenosis. The tricuspid annulus is dilated. There is moderate tricuspid regurgitation. Previously mild to moderate TR. The right ventricular systolic pressure is estimated to be at least 67 mmHg based on an estimated right atrial pressure of 8 mm Hg. There is severe pulmonary hypertension. Compared to the prior echo exam, there has been an increase in the severity of pulmonary hypertension. Procedure: A two-dimensional transthoracic echocardiogram with color flow and Doppler was performed. The study quality was technically adequate. Comparison is made with the echocardiogram of 11/01/2022. The patient was in atrial fibrillation with heart rates between 64-94 bpm during the exam. Left Ventricle: Left ventricular wall thickness is mildly increased. The left ventricle is grossly normal size. There is no thrombus. The ejection fraction is estimated to be 40-45%. Left ventricular systolic function has mildly improved compared to the previous exam. There is mild global hypokinesis of the left ventricle. Mid to distal septum severe hypokinesis. Diastolic function could not be accurately assessed due to atrial fibrillation. Right Ventricle: The right ventricle is moderately dilated. Right ventricular systolic function is mild to moderately reduced. Atria: The left atrium is severely dilated. Both atria have remained unchanged in size since the prior echo exam. The right atrium is severely dilated. There is no Doppler evidence for an interatrial shunt. Mitral Valve: There is moderate mitral annular calcification. The mitral valve leaflets appear mildly thickened, but open well. There is mild to moderate mitral regurgitation. Compared to the prior echo study, there has been an increase in the severity of mitral regurgitation. Aortic Valve: The aortic valve is mildly calcified. There is mild to moderately reduced leaflet mobility. The aortic valve is trileaflet. The peak aortic velocity is 1.5 m/sec. The aortic valve mean gradient is 5 mmHg. There is no hemodynamically significant valvular aortic stenosis. There is trace aortic regurgitation. Tricuspid Valve: The tricuspid annulus is dilated. There is moderate tricuspid regurgitation. The right ventricular systolic pressure is estimated to be at least 67 mmHg based on an estimated right atrial pressure of 8 mm Hg. There is severe pulmonary hypertension. Compared to the prior echo exam, there has been an increase in the severity of pulmonary hypertension. Pulmonic Valve: The pulmonic valve leaflets are thin and pliable; valve motion is normal. There is mild pulmonic regurgitation. Great Vessels: The aortic root is normal size. The dimensions of the ascending aorta are normal. The IVC is dilated (diameter is greater than 2.1 cm) yet it collapses greater than 50% with a sniff. This suggests a right atrial pressure of 8 mm Hg. Pericardium/ Pleura There is no pericardial effusion. There is no pleural effusion. MMode/2D Measurements & Calculations LVIDd: 3.2 cm LVOT diam: 2.0 cm LVIDs: 2.6 cm Ao root diam: 3.8 cm FS: 17.4 % asc Aorta Diam: 3.5 cm EPSS: 0.78 cm Ao Arch Diam (Prox Trans): 2.7 cm IVSd: 1.1 cm LVPWd: 1.1 cm LV monsivais. diameter/BSA (cm/m^2): 1.9 LV sys. diameter/BSA (cm/m^2): 1.6 LA A2 area: 25.2 cm2 RA long axis: 5.9 cm LA A4 area: 27.0 cm2 RA area: 22.1 cm2 LA length (vol): 6.2 cm RA vol: 71.0 ml LA vol: 93.3 ml RA : 42.9 ml/m2 LA vol index: 56.4 ml/m2 IVC diam: 2.1 cm RVD1 (basal): 4.4 cm RVD2 (mid): 3.3 cm TAPSE: 1.4 cm Doppler Measurements & Calculations Ao V2 max: 151.4 cm/sec LVOT Max Roman: 56.5 cm/sec Ao V2 mean: 97.1 cm/sec LV V1 max P.3 mmHg Ao max P.2 mmHg LV V1 VTI: 10.9 cm Ao mean P.7 mmHg NILSON(I,D): 1.2 cm2 Ao V2 VTI: 27.7 cm NILSON(V,D): 1.1 cm2 sev ratio: 0.39 NILSON indexed to BSA (cm^2/m^2): 0.73 MV E max roman: 98.6 cm/sec TR max roman: 385.3 cm/sec MV A max roman: 1.4 cm/sec TR max P.4 mmHg MV E/A: 72.8 PA V2 max: 82.0 cm/sec Med Peak E' Roman: 5.9 cm/sec PA V2 mean: 58.3 cm/sec E/E' med: 16.7 PA mean P.5 mmHg Lat Peak E' Roman: 8.8 cm/sec PA pr(Accel): 44.7 mmHg E/E' lat: 11.2 E/e' average: 14.0 MV dec time: 0.16 sec SV(LVOT): 33.4 ml Reading Physician:12:56 PM
--- NOTE | 2024-01-26 19:12 | P.TELICUCN_ITS ---
History of Present Illness Consult details IF CAMERA ACTIVATED, patient seen via real-time interactive audiovisual communication: Camera activated Date Patient Seen: 01/26/24 Chief complaint: fall yesterday, unable to walk today Reason for consult: Acute hypoxemia respiratory failure Consent obtained for tele-work checker care: Yes Patient Location: ICU Provider location (State): [place] Other participants/roles: Bedside RN and Dr. Cabrera Narrative: Patient is a 78 year old male with history of alcohol abuse, PVD, COPD, HFrEF and A fib on eliquis who presents with frequent falls. By report family found him on the ground and unable to get up. He was brought to the ER for further evaluation. In ER, CTH and CT C spine showed no acute abnormality. Hip x-ray negative and left shoulder xray showed fracture of left humeral tuberosity. Sling was placed and patient was admitted to the floor for further management. Started on thiamine, folic acid, MTV, and ativan per [facility] protocol. Today patient underwent MRI brain showing no acute abnormality. Post MRI he developed worsening hypoxemia. CXR showed blunted R costophrenic angle. He was placed on NRB and transferred to ICU. In ICU, he is AAOX2 which is his baseline. On NRB and transitioned to HFNC 35/100%. ABG -> 7.28/60/83. HR ~150s, A fib and ordered digoxin 250 mcg Iv once. Patient is anxious and plan to start precedex gtt and BiPAP. [facility] Medical History Gout COPD (chronic obstructive pulmonary disease) Peripheral neuropathy Retinal detachment Peripheral vascular disease Essential hypertension (11/01/17) Pure hypercholesterolemia (04/24/16) Systolic congestive heart failure (04/24/16) Atrial fibrillation (04/24/16) Arterial embolism of left leg Surgical History Anesthesia History of surgery History of eye surgery History of cataract removal with insertion of prosthetic lens Family History Father History of heart disease Sister Cancer Social History household members: none Smoking Status: Former smoker alcohol intake: current Current Medications Current Medications Medications: Home Medications lisinopril 10 mg tablet 5 mg (1/2 x 10 mg) PO BID #180 tabs 11/01/22 [Rx Confirmed 01/25/24] spironolactone 25 mg tablet 25 mg PO DAILY #90 tabs 02/06/23 [Rx Confirmed 01/25/24] metoprolol succinate 50 mg tablet,extended release 24 hr 50 mg PO BID #180 tabs 08/10/23 [Rx Confirmed 01/25/24] apixaban 2.5 mg tablet (Eliquis) 2.5 mg PO BID #60 tabs 08/27/23 [Rx Confirmed 01/25/24] atorvastatin 80 mg tablet 80 mg PO BEDTIME #30 tabs 10/24/23 [Rx Confirmed 01/25/24] furosemide 20 mg tablet 20 mg PO BID #180 tabs 11/12/23 [Rx Confirmed 01/25/24] Visit Medications (administered) Generic Name Dose Route Start Last Admin Trade Name Freq PRN Reason Stop Dose Admin Hydrocodone Bitart/Acetaminophen 1 tab 01/25/24 00:28 01/26/24 09:15 Hydrocodone/Acet 5/325 Tablet PO 1 tab Q6HR PRN Administration Pain, Moderate (4-6) Apixaban 2.5 mg 01/25/24 09:00 01/26/24 09:16 Apixaban 5 Mg Tablet PO 2.5 mg BID FRANKO Administration Atorvastatin Calcium 80 mg 01/25/24 21:00 01/25/24 21:15 Atorvastatin 20 Mg Tablet PO 80 mg BEDTIME FRANKO Administration Folic Acid 1 mg 01/25/24 09:00 01/26/24 09:15 Folic Acid 1 Mg Tablet PO 1 mg DAILY FRANKO Administration Multivitamins 1 tab 01/25/24 09:00 01/26/24 09:15 Multivitamin 1 Tablet PO 1 tab DAILY FRANKO Administration Nicotine 14 mg 01/25/24 12:45 01/26/24 09:16 Nicotine 14 Patch TOP 14 mg DAILY FRANKO Administration Ondansetron HCl 4 mg 01/24/24 22:11 01/26/24 18:06 Ondansetron 4 Mg/2 Ml Inj IV 4 mg Q6HR PRN Administration Nausea And Vomiting Thiamine HCl 100 mg 01/25/24 09:00 01/26/24 09:16 Thiamine 100 Mg Tablet PO 01/28/24 09:01 100 mg DAILY FRANKO Administration Exam Vital Signs (past 8 hours): - 01/26/24 11:47 Temperature 97.6 F Pulse Rate 81 Respiratory Rate 20 Blood Pressure 116/75 Pulse Oximetry 96 Oxygen Flow Rate 3 Fraction of Inspired Oxygen 21 SaO2/FiO2 Ratio 438 Oxygen Delivery Method Nasal Cannula Oxygen Flow Rate 3 Narrative Exam Narrative: Anxious on HFNC Objective Labs 01/25/24 05:50 01/26/24 06:29 Labs: Laboratory Results - last 24 hr 01/26/24 06:29 Sodium 140 Potassium 4.5 Chloride 106 Carbon Dioxide 30 BUN 29 H Creatinine 0.92 Estimated GFR > 60 BUN/Creatinine Ratio 31.5 H Glucose 83 Calcium 8.8 Assessment & Plan Assessment & Plan narrative: NEURO: # 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, folic acid, and MTV -- Start precedex gtt -- RASS goal -1 to 0 RESP: # Acute hypoxemia respiratory failure -- Secondary to aspiration vs pulmonary edema vs PE -- On eliquis -- Check stat CXR -- Ordered lasix 40 mg IV once -- Start BiPAP support -- Check ABG post BiPAP -- Monitor closely for need for endotracheal intubation -- HOB elevation -- Aspiration precaution -- Switch ceftriaxone to zosyn -- Goal SpO2 > 88% CVS: # A fib w/ RVR -- Secondary to hypoxemia and holiday heart syndrome -- Ordered digoxin 250 mcg IV once given soft BP -- High lytes goal -- On eliquis -- Goal HR < 110 # CHF -- Ordered lasix 40 mg IV once -- Strict I/O -- Place valdivia -- Low Na diet : -- High lytes goal -- Monitor UOP -- Ordered lasix 40 mg IV once ID: # Aspiration PNA -- Check blood cx -- Check resp cx -- Start zosyn -- Follow up cx ENDO: -- Goal BS < 180 D/w bedside RN. Time Spent With Patient Time with patient: 30 to 49 minutes with 50% spent counseling/coordinating care
[2024-01-26 19:34] LABS: Add Manual Diff / Slide Review NO; Basophils Absolute Auto 0 /uL (0-100); Basophils Percent Auto 0.3 % (0-2); Eosinophils Absolute Auto 0 /uL (0-450); Eosinophils Percent Auto 0.1 % (2-4); Hematocrit 37.6 % (41-53); Hemoglobin 12.1 g/dL (13.5-17.5); Lymphocytes Absolute Auto 2200 /uL (1100-4500); Lymphocytes Percent Auto 15.9 % (25-40); Mean Corpuscular HGB Conc 32.1 % (30-36); Mean Corpuscular Hemoglobin 31.6 PG (26-34); Mean Corpuscular Volume 98.6 fL (80-100); Monocytes Absolute Auto 1000 /uL (0-900); Monocytes Percent Auto 7.6 % (3-14); Neutrophils Absolute Auto 10400 /uL (1500-7000); Neutrophils Percent Auto 76.1 % (50-75); Platelet Count 190 X10^3/uL (150-400); Red Blood Cell Count 3.82 X10^6/uL (4.5-5.9); Red Cell Distribution Width 14.3 % (11.6-14.8); White Blood Cell Count 13.7 X10^3/uL (4.5-11.0)
[2024-01-26] MEDS: FUROSEMIDE 40 MG/4 ML VIAL IV (19:38)
[2024-01-26] MEDS: dexmedeTOMIDine in 0.9 % NaCL 400 MCG/100 ML PLAST..BAG IV (19:39)
[2024-01-26] MEDS: DIGOXIN 500 MCG/2 ML AMPUL 250 MCG IV (19:39)
[2024-01-26 19:40] LABS: BUN Creatinine Ratio 35.1 (6-22); Blood Urea Nitrogen 34 mg/dL (9-20); Calcium 8.8 mg/dL (8.4-10.2); Carbon Dioxide 27 mmol/L (22-32); Chloride 107 mmol/L (98-107); Estimated Glomerular Filt Rate > 60 mL/min (>60); Glucose 90 mg/dL (80-110); HEMOLYSIS 21 (0-50); Potassium 4.6 mmol/L (3.4-5.1); Sodium 139 mmol/L (137-145)
[2024-01-26 19:52] LABS: Troponin I 0.017 ng/mL (0.01-0.034)
[2024-01-26 19:59] LABS: PCO2 ABG 60.7 mmHg (35-45); PO2 ABG 83 mmHg (80-100); pH ABG 7.28 (7.35-7.45)
[2024-01-26 20:00] LABS: HCO3 ABG 29 mmol/L (23-27)
[2024-01-26 20:01] LABS: Allen Test for ABG Passed? Yes, Passed; Blood Gas Collection Site Right Radial; Fractionated Inspired Oxygen 94; TCO2 ABG 31 mmol/L (23-27)
[2024-01-26 20:35] LABS: NT-proBNP (BNP-Adult 18+) 21600 pg/mL (<450)
[2024-01-26 20:52] LABS: MRSA (Nasal) PCR Not Detected (Not Detect)
[2024-01-26 21:09] LABS: Appearance Urine UA CLOUDY; Bilirubin Urine UA 1+ (NEGATIVE); Color Urine UA YELLOW; Glucose Urine UA NEGATIVE (Negative); Ketones Urine UA TRACE (NEGATIVE); Leukocyte Esterase Urine UA 3+ (NEGATIVE); Nitrite Urine UA POSITIVE (Negative); Occult Blood Urine UA 3+ (Negative); Protein Urine UA 1+ (Negative); Specific Gravity Urine UA 1.025 (1.000-1.035); Urobilinogen Urine UA 0.2 E.U./dL (0.2)
[2024-01-26 21:11] LABS: Urine Volume 10mL (spun)
[2024-01-26 21:12] LABS: Ictotest Urine Negative (Negative)
[2024-01-26 21:14] LABS: UR Morphine/Opiate cutoff 300 Positive (Negative); Ur Creatinine Normal (Normal); Ur Specific Gravity Normal (Normal); Urine Amphetamines Negative (Negative); Urine Barbiturates Negative (Negative); Urine Benzodiazepines Positive (Negative); Urine Cocaine Negative (Negative); Urine MDMA Negative (Negative); Urine Methadone Negative (Negative); Urine Methamphetamines Negative (Negative); Urine Oxycodone Negative (Negative); Urine Phencyclidine Negative (Negative); Urine Tetrahydrocannabinol Negative (Negative); Urine Tricyclic Antidepressant Negative (Negative); Urine pH Normal (Normal)
[2024-01-26 21:17] LABS: Bacteria Urine Many (>30); Culture Indicated Urine Specimen Cultured; RBC Urine 30-100/HPF (0-5/HPF); Squamous Epithelial Cell Urine 0-1 /HPF (0-5/HPF); Transitional Epi Cells Urine 0-1/HPF (0-5/HPF); WBC Urine 30-100/HPF (0-5/HPF)
[2024-01-26] MEDS: NOREPINEPHRINE BITARTRATE/D5W 4 MG/250 ML PLAST..BAG 21.773 MG IV (21:29)
[2024-01-26] MEDS: PIPERACILLIN/TAZO 4.5 GM in SODIUM CHLORIDE 0.9% 100 ML IV (21:36)
[2024-01-26 21:47] LABS: Lactate (Lactic Acid) 1.5 mmol/L (0.7-2.1)
[2024-01-26 22:58] LABS: PO2 ABG 88 mmHg (80-100); pH ABG 7.32 (7.35-7.45)
[2024-01-26 22:59] LABS: Fractionated Inspired Oxygen 45; HCO3 ABG 28 mmol/L (23-27); Oxygen Saturation ABG 96 % (95-100); TCO2 ABG 30 mmol/L (23-27)
[2024-01-26 23:00] LABS: Allen Test for ABG Passed? Yes, Passed; Blood Gas Collection Site Right Radial
[2024-01-26] MEDS: MORPHINE 2 MG/ML INJ IV (23:00)
[2024-01-27] VITALS (102 sets, daily range): BP systolic 90–158; BP diastolic 50–94; PULSE 70–122; RESP 0–32; TEMP 36.2–36.6; O2SAT 65–100
[2024-01-27] MEDS: MORPHINE 2 MG/ML INJ IV (04:05)
[2024-01-27] MEDS: PIPERACILLIN/TAZO 4.5 GM in SODIUM CHLORIDE 0.9% 100 ML IV (05:46)
[2024-01-27 07:04] LABS: Oxygen Saturation ABG 94 % (95-100)
--- NOTE | 2024-01-27 07:19 | PM.PN.1 ---
Subjective Subjective Date Patient Seen: 01/27/24 Interval history: He is seen in the intensive care unit this morning and again this afternoon. He has required high-dose Precedex with additional phenobarbital/Haldol to calm his agitation. When he gets agitated he pulls his oxygen off and drops into the 70s quite quickly. With medication to improve sedation we have been able to avoid needing to intubate him. He continues on high-flow nasal cannula saturating in the 90s. [facility]. He remains on norepinephrine due to hypotension likely caused by the Precedex. His chest x-ray shows worsening right lower lobe infiltrate. His echocardiogram shows an ejection fraction of 40-45%, actually somewhat improved. His UA showed 30-100 RBCs and 30-100 wbc's with positive nitrate. He is on Zosyn. He has been made NPO so a maintenance IV fluid will be started. He was given Lasix once last night. [place] 0[place] [address]. The BMP is normal and the CBC shows a white count of 13.7 with a hemoglobin of 12.1. He has been accepted at [facility] when he is stabilized. His daughter is present at bedside and is briefed on the current interventions, treatments and prognosis. Exam Vital Signs (past 8 hours): - 01/26/24 23:20 01/26/24 23:20 01/26/24 23:30 Temperature Pulse Rate 86 80 Respiratory Rate 18 17 Blood Pressure 114/70 Pulse Oximetry 99 98 Oxygen Delivery Method Oxygen Flow Rate Fraction of Inspired Oxygen 01/26/24 23:30 01/26/24 23:40 01/26/24 23:40 Temperature Pulse Rate 81 Respiratory Rate 17 Blood Pressure 119/80 Pulse Oximetry 97 97 Oxygen Delivery Method Heated High Flow Oxygen Flow Rate 35 Fraction of Inspired Oxygen 40 01/27/24 00:00 01/27/24 00:00 01/27/24 00:20 Temperature 97.6 F Pulse Rate 89 78 Respiratory Rate 24 14 Blood Pressure 128/66 Pulse Oximetry 97 96 Oxygen Delivery Method Oxygen Flow Rate 40 Fraction of Inspired Oxygen 01/27/24 00:20 01/27/24 00:30 01/27/24 00:40 Temperature Pulse Rate 87 74 Respiratory Rate 16 16 Blood Pressure 121/66 Pulse Oximetry 96 97 Oxygen Delivery Method Oxygen Flow Rate Fraction of Inspired Oxygen 01/27/24 00:40 01/27/24 01:00 01/27/24 01:00 Temperature Pulse Rate 74 Respiratory Rate 15 Blood Pressure 129/67 129/78 Pulse Oximetry 97 Oxygen Delivery Method Oxygen Flow Rate Fraction of Inspired Oxygen 01/27/24 01:20 01/27/24 01:20 01/27/24 01:30 Temperature Pulse Rate 77 76 Respiratory Rate 17 15 Blood Pressure 125/80 Pulse Oximetry 96 97 Oxygen Delivery Method Oxygen Flow Rate Fraction of Inspired Oxygen 01/27/24 01:40 01/27/24 01:40 01/27/24 02:00 Temperature Pulse Rate 78 72 Respiratory Rate 15 16 Blood Pressure 128/80 Pulse Oximetry 97 97 Oxygen Delivery Method Oxygen Flow Rate Fraction of Inspired Oxygen 01/27/24 02:00 01/27/24 02:20 01/27/24 02:20 Temperature Pulse Rate 71 Respiratory Rate 15 Blood Pressure 133/77 134/84 Pulse Oximetry 97 Oxygen Delivery Method Oxygen Flow Rate 40 Fraction of Inspired Oxygen 01/27/24 02:30 01/27/24 02:40 01/27/24 02:40 Temperature Pulse Rate 76 75 Respiratory Rate 15 15 Blood Pressure 140/84 Pulse Oximetry 97 97 Oxygen Delivery Method Oxygen Flow Rate Fraction of Inspired Oxygen 01/27/24 03:00 01/27/24 03:00 01/27/24 03:20 Temperature Pulse Rate 81 73 Respiratory Rate 18 14 Blood Pressure 118/80 Pulse Oximetry 97 97 Oxygen Delivery Method Oxygen Flow Rate Fraction of Inspired Oxygen 01/27/24 03:20 01/27/24 03:30 01/27/24 03:40 Temperature Pulse Rate 72 Respiratory Rate 16 Blood Pressure 123/64 117/70 Pulse Oximetry 97 Oxygen Delivery Method Oxygen Flow Rate Fraction of Inspired Oxygen 01/27/24 03:40 01/27/24 03:48 01/27/24 04:00 Temperature 97.8 F Pulse Rate 71 79 Respiratory Rate 16 21 Blood Pressure Pulse Oximetry 98 96 96 Oxygen Delivery Method Heated High Flow Oxygen Flow Rate 35 35 Fraction of Inspired Oxygen 35 01/27/24 04:00 01/27/24 04:20 01/27/24 04:20 Temperature Pulse Rate 80 Respiratory Rate 18 Blood Pressure 130/69 109/58 L Pulse Oximetry 94 Oxygen Delivery Method Oxygen Flow Rate Fraction of Inspired Oxygen 01/27/24 04:30 01/27/24 04:40 01/27/24 04:40 Temperature Pulse Rate 77 78 Respiratory Rate 13 17 Blood Pressure 123/68 Pulse Oximetry 94 95 Oxygen Delivery Method Oxygen Flow Rate Fraction of Inspired Oxygen 01/27/24 05:00 01/27/24 05:00 01/27/24 05:20 Temperature Pulse Rate 74 Respiratory Rate 14 Blood Pressure 129/78 124/75 Pulse Oximetry 94 Oxygen Delivery Method Oxygen Flow Rate 35 Fraction of Inspired Oxygen 01/27/24 05:20 01/27/24 05:30 01/27/24 05:40 Temperature Pulse Rate 75 77 70 Respiratory Rate 14 14 15 Blood Pressure Pulse Oximetry 94 94 94 Oxygen Delivery Method Oxygen Flow Rate Fraction of Inspired Oxygen 01/27/24 05:40 01/27/24 06:00 01/27/24 06:00 Temperature Pulse Rate 78 Respiratory Rate 17 Blood Pressure 130/69 125/65 Pulse Oximetry 94 Oxygen Delivery Method Oxygen Flow Rate 35 Fraction of Inspired Oxygen Fraction of Inspired Oxygen 35 SaO2/FiO2 Ratio 274 Oxygen Delivery Method Heated High Flow Oxygen Flow Rate 35 Narrative Exam Narrative: When I see the patient he is sedated and in no apparent distress but had recently been quite agitated and at that time hypoxic. Heart is irregularly irregular without murmur Lungs are clear largely. Abdomen is soft, nontender, bowel sounds active, no organomegaly Extremities have no ankle edema Skin is quite pale hardy. Objective Labs 01/27/24 10:10 01/27/24 10:10 Labs: Laboratory Results - last 24 hr 01/26/24 01/26/24 01/26/24 18:53 19:00 19:24 WBC 13.7 H D RBC 3.82 L Hgb 12.1 L Hct 37.6 L MCV 98.6 MCH 31.6 MCHC 32.1 RDW 14.3 Plt Count 190 Neut % (Auto) 76.1 H Lymph % (Auto) 15.9 L [place] % (Auto) 7.6 Eos % (Auto) 0.1 L Baso % (Auto) 0.3 Neut # (Auto) 90549 H Lymph # (Auto) 2200 [place] # (Auto) 1000 H Eos # (Auto) 0 Baso # (Auto) 0 ABG Sample Site Right radial ABG pH 7.28 L* ABG pCO2 60.7 H ABG pO2 83 ABG HCO3 29 H ABG Total CO2 31 H ABG O2 Saturation 94 L ABG Base Excess 2.0 FiO2 94 Sodium 139 Potassium 4.6 Chloride 107 Carbon Dioxide 27 BUN 34 H Creatinine 0.97 Estimated GFR > 60 BUN/Creatinine Ratio 35.1 H Glucose 90 Lactate Calcium 8.8 Troponin I 0.017 NT-Pro-B Natriuret Pep 97112 H Urine Color Urine Appearance Urine pH Ur Specific [place] Urine Protein Urine Glucose (UA) Urine Ketones Urine Occult Blood Urine Nitrate Urine Bilirubin Ur Bilirubin Confirm Urine Urobilinogen Ur Leukocyte Esterase Urine RBC Urine WBC Ur Squamous Epith Cells Ur Transition Epith Cell Urine Bacteria Ur Culture Indicated? Vol Urine Centrifuged Nasal Screen MRSA (PCR) Not detected U Opiates 300ng/mL cut Ur Oxycodone Screen Urine Methadone Screen Ur Barbiturates Screen U Tricyclic Antidepress Ur Phencyclidine Scrn Ur Amphetamines Screen U Methamphetamines Scrn Ur MDMA Scrn (Ecstasy) U Benzodiazepines Scrn Urine Cocaine Screen U Marijuana (THC) Screen Urine Specific [place] Ur Creatinine 01/26/24 01/26/24 01/26/24 20:52 20:52 21:16 WBC RBC Hgb Hct MCV MCH MCHC RDW Plt Count Neut % (Auto) Lymph % (Auto) [place] % (Auto) Eos % (Auto) Baso % (Auto) Neut # (Auto) Lymph # (Auto) [place] # (Auto) Eos # (Auto) Baso # (Auto) ABG Sample Site ABG pH ABG pCO2 ABG pO2 ABG HCO3 ABG Total CO2 ABG O2 Saturation ABG Base Excess FiO2 Sodium Potassium Chloride Carbon Dioxide BUN Creatinine Estimated GFR BUN/Creatinine Ratio Glucose Lactate 1.5 Calcium Troponin I NT-Pro-B Natriuret Pep Urine Color Yellow Urine Appearance Cloudy Urine pH 6.0 Normal Ur Specific [place] 1.025 Urine Protein 1+ H Urine Glucose (UA) Negative Urine Ketones Trace H Urine Occult Blood 3+ H Urine Nitrate Positive H Urine Bilirubin 1+ H Ur Bilirubin Confirm Negative Urine Urobilinogen 0.2 Ur Leukocyte Esterase 3+ H Urine RBC 30-100/hpf H Urine WBC 30-100/hpf H Ur Squamous Epith Cells 0-1 /hpf Ur Transition Epith Cell 0-1/hpf Urine Bacteria Many (>30) H Ur Culture Indicated? Specimen cultured Vol Urine Centrifuged 10ml (spun) Nasal Screen MRSA (PCR) U Opiates 300ng/mL cut Positive H Ur Oxycodone Screen Negative Urine Methadone Screen Negative Ur Barbiturates Screen Negative U Tricyclic Antidepress Negative Ur Phencyclidine Scrn Negative Ur Amphetamines Screen Negative U Methamphetamines Scrn Negative Ur MDMA Scrn (Ecstasy) Negative U Benzodiazepines Scrn Positive H Urine Cocaine Screen Negative U Marijuana (THC) Screen Negative Urine Specific [place] Normal Ur Creatinine Normal 01/26/24 21:54 WBC RBC Hgb Hct MCV MCH MCHC RDW Plt Count Neut % (Auto) Lymph % (Auto) [place] % (Auto) Eos % (Auto) Baso % (Auto) Neut # (Auto) Lymph # (Auto) [place] # (Auto) Eos # (Auto) Baso # (Auto) ABG Sample Site Right radial ABG pH 7.32 L ABG pCO2 55.0 H ABG pO2 88 ABG HCO3 28 H ABG Total CO2 30 H ABG O2 Saturation 96 ABG Base Excess 2.0 FiO2 45 Sodium Potassium Chloride Carbon Dioxide BUN Creatinine Estimated GFR BUN/Creatinine Ratio Glucose Lactate Calcium Troponin I NT-Pro-B Natriuret Pep Urine Color Urine Appearance Urine pH Ur Specific [place] Urine Protein Urine Glucose (UA) Urine Ketones Urine Occult Blood Urine Nitrate Urine Bilirubin Ur Bilirubin Confirm Urine Urobilinogen Ur Leukocyte Esterase Urine RBC Urine WBC Ur Squamous Epith Cells Ur Transition Epith Cell Urine Bacteria Ur Culture Indicated? Vol Urine Centrifuged Nasal Screen MRSA (PCR) U Opiates 300ng/mL cut Ur Oxycodone Screen Urine Methadone Screen Ur Barbiturates Screen U Tricyclic Antidepress Ur Phencyclidine Scrn Ur Amphetamines Screen U Methamphetamines Scrn Ur MDMA Scrn (Ecstasy) U Benzodiazepines Scrn Urine Cocaine Screen U Marijuana (THC) Screen Urine Specific [place] Ur Creatinine PFSH Medical History Gout COPD (chronic obstructive pulmonary disease) Peripheral neuropathy Retinal detachment Peripheral vascular disease Essential hypertension (11/01/17) Pure hypercholesterolemia (04/24/16) Systolic congestive heart failure (04/24/16) Atrial fibrillation (04/24/16) Arterial embolism of left leg Surgical History Anesthesia History of surgery History of eye surgery History of cataract removal with insertion of prosthetic lens Family History Father History of heart disease Sister Cancer Social History household members: none Smoking Status: Former smoker alcohol intake: current Assessment & Plan Assessment & Plan narrative: Markos Savage is an 78yo male with history of alcohol use, atrial fibrillation on Eliquis, HTN, COPD, PVD, CHF and tobacco use who presented with a ground level fall and continued inability to ambulate since the fall. Acute hypoxic respiratory failure -the patient appears to have RLL aspiration pneumonia with acute deterioration on 01/26/2024 and is being treated for that. -the patient does not appear to be in significant CHF at this time -the patient has severe agitation from alcohol withdrawal complicating treatment of the hypoxic respiratory failure. -the patient is being followed by the critical care forest scientist by tele video. -continue high-flow nasal cannula oxygen, IV fluid support while NPO, Levophed as needed, Precedex for alcohol withdrawal agitation, Zosyn. -echocardiogram without evidence of significant worsened cardiomyopathy. Ejection fraction is 45-55%. -Consider TPN by 01/27. # Ambulatory Dysfunction: # Ground Level Fall: # Lower Extremity Weakness with history of T6 Compression Fracture: His fall was likely secondary to alcohol intoxication though does have bilateral weakness with T6 compression fracture. He could not tolerate the planned MR of T spine to make sure no spinal pathology and the Shoulder MR plan was also deferred. - Treat alcohol and hypomagnesemia as noted below. - PT/OT consulted and currently on hold - Given his lower extremity weakness and history of T6 compression fracture, tried to do a thoracic spine MRI to rule out acute issue, though he does not have other clinical signs of cord compression. -defer left shoulder MRI for now # Alcohol Abuse: Unclear how much he truly drinks in a given day/week, he only endorses 3-4 norbert's hard lemonade a day today. Denies prior seizure or shaking when not drinking. - Now in ICU - Precedex drip, Phenobarbital TID and Haldol. Does not respond well to Lorazepam. - Continue IV Thiamine and Folate. # Hypomagnesemia: - Received replacement in the ED. - Follow # Left Humeral Head Fracture: Mildly displaced per x-ray. - Continue sling. Non-operative with outpatient management for now, discussed with orthopedics whom recommended MRI for this patient for further evaluation for possible rotator cuff injury. - PRN Hydrocodone and IV Dilaudid while sedated. -shoulder MRI deferred for now # Atrial Fibrillation, Persistent: - continue home Metoprolol and Eliquis. # Essential Hypertension: Controlled. - Continue home metoprolol XL and lisinopril. # Chronic HFrEF: Last LVEF was 30% via TTE in 2022. Now with EF of 45-55% - Continue home metoprolol XL, lisinopril, atorvastatin. Holding furosemide and spironolactone for now, consider resuming in 1-2 days. # Right Sided Aspiration Pneumonia - New infiltrates on CXR 01/26/24 - Ceftriaxone 1 gm Q24h, changed to Zosyn #tobacco use - nicotine patch Placement -[facility] has reviewed and accepted him when he is ready. #malnutrition - dietary consultation ordered, suspect severe chronic protein calorie malnutrition given his muscle wasting and weakness. Nutrition diagnosis: Severe Chronic Protein Calorie Malnutrition r/t to decreased energy intake and increased protein needs with CHF as evidenced by severe muscle wasting (temporalis, interosseous) and severe subcutaneous fat loss (buccal and orbital fat pads), <75% of estimated energy requirements for >1 month, BMI 20.6 (underweight for age), and substance abuse. Will continue with dietary treatment recommendations and will need TPN if still on Precedex by 01/27. Code Status: Full Code, surrogate is patient's daughter. DVT: on Eliquis Quality VTE Deep Vein Thrombosis/Pulmonary Embolism Present on Admission: No
[2024-01-27] MEDS: HALOPERIDOL 5 MG/ML VIAL 2 MG IV (08:12)
[2024-01-27] MEDS: dexmedeTOMIDine in 0.9 % NaCL 400 MCG/100 ML PLAST..BAG 14.515 MCG IV (08:13)
--- NOTE | 2024-01-27 08:53 | DI.RAD.S_ITS ---
PROCEDURE: XR CHEST 1V INDICATIONS: Respiratory Failure TECHNIQUE: One view of the chest was acquired. COMPARISON: [facility], CR, XR CHEST 1V, 01/26/2024, 11:09. [facility], CR, XR CHEST 1V, 01/26/2024, 18:44. FINDINGS: Surgical changes and devices: None. Lungs and pleura: There is infiltrate involving the right lower lung. Low lung volumes are noted. This causes a crowded appearance to the lung markings and limits evaluation. No pneumothorax or pleural effusions are seen. Mediastinum: Mediastinal contours appear normal. Heart size is normal. Atherosclerotic calcification of the aortic arch is noted. Bones and chest wall: No suspicious bony lesions. Age-appropriate bony degenerative changes are seen. Overlying soft tissues appear unremarkable. IMPRESSION: Infiltrate involving the right lower lung, which is worse on the current study than on the prior. Dictated by: Beau Kaiser M.D. on 01/27/2024 at 8:28 Approved by: Beau Kaiser M.D. on 01/27/2024 at 8:28
[2024-01-27] MEDS: HYDROMORPHONE 1 MG INJ IV ×2 (09:10→21:26)
[2024-01-27] MEDS: DEXTROSE 5%-0.9% NS 1,000 ML 60 ML IV (09:47)
--- NOTE | 2024-01-27 10:26 | PT-IP ANOTE ---
In rounds it is communicated that pt had a decline in medical status overnight and was transferred to ICU, is sedated and on high flow nasal cannula. Per MD, hold PT today. Will monitor medical process and prognosis and consider d/c PT if pt con't to decline.
[2024-01-27 10:30] LABS: Add Manual Diff / Slide Review NO; Basophils Absolute Auto 0 /uL (0-100); Basophils Percent Auto 0.2 % (0-2); Eosinophils Absolute Auto 0 /uL (0-450); Eosinophils Percent Auto 0.2 % (2-4); Hematocrit 37.2 % (41-53); Hemoglobin 12.1 g/dL (13.5-17.5); Lymphocytes Absolute Auto 600 /uL (1100-4500); Lymphocytes Percent Auto 3.8 % (25-40); Mean Corpuscular HGB Conc 32.6 % (30-36); Mean Corpuscular Hemoglobin 31.5 PG (26-34); Mean Corpuscular Volume 96.6 fL (80-100); Monocytes Absolute Auto 700 /uL (0-900); Monocytes Percent Auto 4.8 % (3-14); Neutrophils Absolute Auto 13500 /uL (1500-7000); Platelet Count 183 X10^3/uL (150-400); Red Blood Cell Count 3.85 X10^6/uL (4.5-5.9); Red Cell Distribution Width 13.5 % (11.6-14.8); White Blood Cell Count 14.8 X10^3/uL (4.5-11.0)
[2024-01-27 10:41] LABS: Alanine Aminotransferase 19 IU/L (<50); Albumin 3.1 g/dL (3.5-5.0); Albumin Globulin Ratio 1.1 (1.0-2.8); Alkaline Phosphatase 105 U/L (38-126); Aspartate Aminotransferase 27 IU/L (17-59); BUN Creatinine Ratio 27.1 (6-22); Bilirubin Total 1.2 mg/dL (0.2-1.3); Blood Urea Nitrogen 36 mg/dL (9-20); Calcium 8.8 mg/dL (8.4-10.2); Carbon Dioxide 28 mmol/L (22-32); Chloride 106 mmol/L (98-107); Estimated Glomerular Filt Rate 54 mL/min (>60); Globulin 2.8 g/dL (1.7-4.1); Glucose 106 mg/dL (80-110); HEMOLYSIS < 15 (0-50); Potassium 4.1 mmol/L (3.4-5.1); Sodium 140 mmol/L (137-145); Total Protein 5.9 g/dL (6.3-8.2)
[2024-01-27] MEDS: NOREPINEPHRINE BITARTRATE/D5W 4 MG/250 ML PLAST..BAG 17.418 MG IV (10:55)
[2024-01-27] MEDS: THIAMINE 100 MG in SODIUM CHLORIDE 0.9% 100 ML 404 MG IV ×3 (11:22→21:29)
[2024-01-27] MEDS: FOLIC ACID 1 MG in SODIUM CHLORIDE 0.9% 100 ML 200.4 MG IV (11:22)
[2024-01-27] MEDS: HYDROMORPHONE 2 MG INJ IV (11:29)
[2024-01-27] MEDS: ENOXAPARIN 60 MG/0.6 ML SYRINGE SUBCUT ×2 (11:53→21:29)
--- NOTE | 2024-01-27 12:06 | DI.RAD.S_ITS ---
PROCEDURE: XR CHEST FOR PICC 1V INDICATIONS: PICC line placement COMPARISON: [facility], CR, XR CHEST 1V, 01/27/2024, 8:56. [facility], CR, XR CHEST 1V, 01/26/2024, 18:44. FINDINGS: PICC was placed by the intravenous therapy team from the right side. Fluoroscopic spot film demonstrates the tip of PICC projecting to the area of the cavoatrial junction. Right lower lobe infiltrates are better visualized on same day x-ray. IMPRESSION: Tip of PICC projects to the area of cavoatrial junction. Dictated by: Matias Ross M.D. on 01/27/2024 at 12:23 Approved by: Matias Ross M.D. on 01/27/2024 at 12:24
--- NOTE | 2024-01-27 12:43 | CM.DPC ---
DCP Cont. Reviewed EMR and team rounds for status updates. Pt was moved to the ICU due to becoming hypoxic, needing precidex. He was started on high-flow O2, may need intubation depending on how he does over the course of the day. [facility] had anticipated accepting him on Sunday, this will need to be pushed out as he is not yet medically stable. Will continue to monitor and keep [facility] updated.
[2024-01-27] MEDS: PIPERACILLIN/TAZO 3.375 GM in SODIUM CHLORIDE 0.9% 100 ML IV ×2 (14:23→21:38)
[2024-01-27] MEDS: dexmedeTOMIDine in 0.9 % NaCL 400 MCG/100 ML PLAST..BAG 11.612 MCG IV (14:23)
[2024-01-27 16:28] LABS: Add Manual Diff / Slide Review NO; Basophils Absolute Auto 0 /uL (0-100); Basophils Percent Auto 0.2 % (0-2); Eosinophils Absolute Auto 0 /uL (0-450); Eosinophils Percent Auto 0.1 % (2-4); Hematocrit 35.3 % (41-53); Hemoglobin 11.3 g/dL (13.5-17.5); Lymphocytes Absolute Auto 700 /uL (1100-4500); Lymphocytes Percent Auto 4.4 % (25-40); Mean Corpuscular Hemoglobin 31.1 PG (26-34); Monocytes Absolute Auto 600 /uL (0-900); Monocytes Percent Auto 4.4 % (3-14); Neutrophils Absolute Auto 13500 /uL (1500-7000); Neutrophils Percent Auto 90.9 % (50-75); Platelet Count 203 X10^3/uL (150-400); Red Blood Cell Count 3.64 X10^6/uL (4.5-5.9); Red Cell Distribution Width 13.8 % (11.6-14.8); White Blood Cell Count 14.8 X10^3/uL (4.5-11.0)
[2024-01-27 16:41] LABS: Alanine Aminotransferase 17 IU/L (<50); Albumin 2.7 g/dL (3.5-5.0); Albumin Globulin Ratio 0.9 (1.0-2.8); Alkaline Phosphatase 94 U/L (38-126); Aspartate Aminotransferase 31 IU/L (17-59); BUN Creatinine Ratio 29.4 (6-22); Bilirubin Total 0.9 mg/dL (0.2-1.3); Blood Urea Nitrogen 37 mg/dL (9-20); Calcium 8.3 mg/dL (8.4-10.2); Carbon Dioxide 28 mmol/L (22-32); Chloride 108 mmol/L (98-107); Estimated Glomerular Filt Rate 58 mL/min (>60); Globulin 2.9 g/dL (1.7-4.1); Glucose 155 mg/dL (80-110); HEMOLYSIS < 15 (0-50); Sodium 140 mmol/L (137-145); Total Protein 5.6 g/dL (6.3-8.2)
--- NOTE | 2024-01-27 16:56 | PC.NURSE ---
Addendum entered by Ml Coley R.N. 01/27/24 18:19: [id number] Bladder scanned pt, 650cc noted in bladder, provider at bedside, will begin transfer search, contacting urology traffic control operator, no further needs at this time. Original Note: Pt very agitated this morning, removed HHF and refused to put back on screaming just let me , O2 saturation dropped quickly to 64% while daughter and this nurse attempted to convince pt to put HHF back on, skin became very dusky/robertson. Contacted provider, orders placed for Haldol, administered and turned up Precedex gtt (see emar for rate), pt became relaxed and was able to put HHF back on, with O2 sats improving to 91% and color returning to normal for pt. PICC line placed for possible increasing of Norepi gtt if needed, pt made NPO and all PO meds held for pt safety, changed from PO meds to IV, added IVF D5/NS at 60mL/hr for gentle hydration. HHF currently at 40L 35%, pt sats between 88-98%. BP 124/59 on Norepi(see emar for rate), pt turned Q2, to prevent skin break down. It was noted by this nurse that pt valdivia catheter output was limited, and very bloody, with clots, bladder scan showed 520cc, replaced catheter when it was noted that pt had drainage around the 16F, replaced with a 18 coude due to pt BPH, placed with no difficulty, continues to drain bloody urine, but limited output repeat bladder scan shows 550cc. Notified provider who recommends urology consult tomorrow (there is no in house urology today), this nurse continues to attempt to irrigate the catheter to encourage drainage, pt tolerating well, will continue to bladder scan pt. Family is at bedside, all questions answered, VSS, no further needs at this time.
--- NOTE | 2024-01-27 18:05 | P.TELICUPN_ITS ---
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-newspaper editor care: Yes Patient Location: ICU Provider location (State): [place] Other participants/roles: rn Interval history: pt on precedex gtt and HFNC, at 30%, precedex dose was increased today Current Medications Current Medications Medications: Home Medications lisinopril 10 mg tablet 5 mg (1/2 x 10 mg) PO BID #180 tabs 11/01/22 [Rx Confirmed 01/25/24] spironolactone 25 mg tablet 25 mg PO DAILY #90 tabs 02/06/23 [Rx Confirmed 01/25/24] metoprolol succinate 50 mg tablet,extended release 24 hr 50 mg PO BID #180 tabs 08/10/23 [Rx Confirmed 01/25/24] apixaban 2.5 mg tablet (Eliquis) 2.5 mg PO BID #60 tabs 08/27/23 [Rx Confirmed 01/25/24] atorvastatin 80 mg tablet 80 mg PO BEDTIME #30 tabs 10/24/23 [Rx Confirmed 01/25/24] furosemide 20 mg tablet 20 mg PO BID #180 tabs 11/12/23 [Rx Confirmed 01/25/24] Visit Medications (administered) Generic Name Dose Route Start Last Admin Trade Name Freq PRN Reason Stop Dose Admin Hydrocodone Bitart/Acetaminophen 1 tab 01/25/24 00:28 01/26/24 09:15 Hydrocodone/Acet 5/325 Tablet PO 1 tab Q6HR PRN Administration Pain, Moderate (4-6) Atorvastatin Calcium 80 mg 01/25/24 21:00 01/26/24 20:37 Atorvastatin 20 Mg Tablet PO Not Given BEDTIME FRANKO Enoxaparin Sodium 60 mg 01/27/24 10:30 01/27/24 11:53 Enoxaparin 60 Mg/0.6 Ml Syringe SUBCUT 60 mg BID FRANKO Administration Haloperidol 2 mg 01/27/24 08:00 01/27/24 08:12 Haloperidol 5 Mg/Ml Vial IV 2 mg Q1H PRN Administration Agitation Hydromorphone HCl 1 mg 01/27/24 08:22 01/27/24 09:10 Hydromorphone 1 Mg Inj IV 1 mg Q3H PRN Administration Pain, Moderate (4-6) Hydromorphone HCl 2 mg 01/27/24 11:09 01/27/24 11:29 Hydromorphone 2 Mg Inj IV 2 mg Q2H PRN Administration Pain, Severe (7-10) dexmedeTOMIDine in 0.9 % NaCL 400 mcg in 100 mls @ 2.903 mls/hr 01/26/24 19:30 01/27/24 15:47 Precedex IV 0.6 mcg/kg/hr TITRATE FRANKO 8.709 mls/hr Titration Protocol 0.2 MCG/KG/HR NOREPINEPHRINE BITARTRATE/D5W 4 mg in 250 mls @ 21.773 mls/hr 01/26/24 21:14 01/27/24 10:55 Levophed IV 0.08 mcg/kg/min TITRATE FRANKO 17.418 mls/hr Administration Protocol 0.1 MCG/KG/MIN Piperacillin Sod/Tazobactam 100 mls @ 25 mls/hr 01/27/24 14:00 01/27/24 14:23 Sod 3.375 gm/ Sodium Chloride IV 25 mls/hr Q8H FRANKO Administration Dextrose/Sodium Chloride 1,000 mls @ 60 mls/hr 01/27/24 09:00 01/27/24 09:47 Dextrose 5%-0.9% Ns IV 60 mls/hr CONT FRANKO Administration Thiamine HCl 100 mg/ Sodium 101 mls @ 404 mls/hr 01/27/24 10:30 01/27/24 15:51 Chloride IV 404 mls/hr TID FRANKO Administration Folic Acid 1 mg/ Sodium 100.2 mls @ 200.4 mls/hr 01/27/24 10:45 01/27/24 11:52 Chloride IV Infused DAILY FRANKO Infusion Multivitamins 1 tab 01/25/24 09:00 01/27/24 11:05 Multivitamin 1 Tablet PO Not Given DAILY FRANKO Nicotine 14 mg 01/25/24 12:45 01/27/24 09:36 Nicotine 14 Patch TOP Not Given DAILY FRANKO Ondansetron HCl 4 mg 01/24/24 22:11 01/26/24 18:06 Ondansetron 4 Mg/2 Ml Inj IV 4 mg Q6HR PRN Administration Nausea And Vomiting Objective Ventilator Parameters: Ventilator Settings FiO2 35 Labs 01/27/24 16:10 01/27/24 16:10 Labs: Laboratory Results - last 24 hr 01/26/24 01/26/24 01/26/24 18:53 19:00 19:24 WBC 13.7 H D RBC 3.82 L Hgb 12.1 L Hct 37.6 L MCV 98.6 MCH 31.6 MCHC 32.1 RDW 14.3 Plt Count 190 Neut % (Auto) 76.1 H Lymph % (Auto) 15.9 L [place] % (Auto) 7.6 Eos % (Auto) 0.1 L Baso % (Auto) 0.3 Neut # (Auto) 80553 H Lymph # (Auto) 2200 [place] # (Auto) 1000 H Eos # (Auto) 0 Baso # (Auto) 0 ABG Sample Site Right radial ABG pH 7.28 L* ABG pCO2 60.7 H ABG pO2 83 ABG HCO3 29 H ABG Total CO2 31 H ABG O2 Saturation 94 L ABG Base Excess 2.0 FiO2 94 Sodium 139 Potassium 4.6 Chloride 107 Carbon Dioxide 27 BUN 34 H Creatinine 0.97 Estimated GFR > 60 BUN/Creatinine Ratio 35.1 H Glucose 90 Lactate Calcium 8.8 Total Bilirubin AST ALT Alkaline Phosphatase Troponin I 0.017 NT-Pro-B Natriuret Pep 56871 H Total Protein Albumin Globulin Albumin/Globulin Ratio Urine Color Urine Appearance Urine pH Ur Specific [place] Urine Protein Urine Glucose (UA) Urine Ketones Urine Occult Blood Urine Nitrate Urine Bilirubin Ur Bilirubin Confirm Urine Urobilinogen Ur Leukocyte Esterase Urine RBC Urine WBC Ur Squamous Epith Cells Ur Transition Epith Cell Urine Bacteria Ur Culture Indicated? Vol Urine Centrifuged Nasal Screen MRSA (PCR) Not detected U Opiates 300ng/mL cut Ur Oxycodone Screen Urine Methadone Screen Ur Barbiturates Screen U Tricyclic Antidepress Ur Phencyclidine Scrn Ur Amphetamines Screen U Methamphetamines Scrn Ur MDMA Scrn (Ecstasy) U Benzodiazepines Scrn Urine Cocaine Screen U Marijuana (THC) Screen Urine Specific [place] Ur Creatinine 01/26/24 01/26/24 01/26/24 20:52 20:52 21:16 WBC RBC Hgb Hct MCV MCH MCHC RDW Plt Count Neut % (Auto) Lymph % (Auto) [place] % (Auto) Eos % (Auto) Baso % (Auto) Neut # (Auto) Lymph # (Auto) [place] # (Auto) Eos # (Auto) Baso # (Auto) ABG Sample Site ABG pH ABG pCO2 ABG pO2 ABG HCO3 ABG Total CO2 ABG O2 Saturation ABG Base Excess FiO2 Sodium Potassium Chloride Carbon Dioxide BUN Creatinine Estimated GFR BUN/Creatinine Ratio Glucose Lactate 1.5 Calcium Total Bilirubin AST ALT Alkaline Phosphatase Troponin I NT-Pro-B Natriuret Pep Total Protein Albumin Globulin Albumin/Globulin Ratio Urine Color Yellow Urine Appearance Cloudy Urine pH 6.0 Normal Ur Specific [place] 1.025 Urine Protein 1+ H Urine Glucose (UA) Negative Urine Ketones Trace H Urine Occult Blood 3+ H Urine Nitrate Positive H Urine Bilirubin 1+ H Ur Bilirubin Confirm Negative Urine Urobilinogen 0.2 Ur Leukocyte Esterase 3+ H Urine RBC 30-100/hpf H Urine WBC 30-100/hpf H Ur Squamous Epith Cells 0-1 /hpf Ur Transition Epith Cell 0-1/hpf Urine Bacteria Many (>30) H Ur Culture Indicated? Specimen cultured Vol Urine Centrifuged 10ml (spun) Nasal Screen MRSA (PCR) U Opiates 300ng/mL cut Positive H Ur Oxycodone Screen Negative Urine Methadone Screen Negative Ur Barbiturates Screen Negative U Tricyclic Antidepress Negative Ur Phencyclidine Scrn Negative Ur Amphetamines Screen Negative U Methamphetamines Scrn Negative Ur MDMA Scrn (Ecstasy) Negative U Benzodiazepines Scrn Positive H Urine Cocaine Screen Negative U Marijuana (THC) Screen Negative Urine Specific [place] Normal Ur Creatinine Normal 01/26/24 01/27/24 01/27/24 21:54 10:10 16:10 WBC 14.8 H 14.8 H RBC 3.85 L 3.64 L Hgb 12.1 L 11.3 L Hct 37.2 L 35.3 L MCV 96.6 97.0 MCH 31.5 31.1 MCHC 32.6 32.0 RDW 13.5 13.8 Plt Count 183 203 Neut % (Auto) 91.0 H 90.9 H Lymph % (Auto) 3.8 L 4.4 L [place] % (Auto) 4.8 4.4 Eos % (Auto) 0.2 L 0.1 L Baso % (Auto) 0.2 0.2 Neut # (Auto) 03592 H 09490 H Lymph # (Auto) 600 L 700 L [place] # (Auto) 700 600 Eos # (Auto) 0 0 Baso # (Auto) 0 0 ABG Sample Site Right radial ABG pH 7.32 L ABG pCO2 55.0 H ABG pO2 88 ABG HCO3 28 H ABG Total CO2 30 H ABG O2 Saturation 96 ABG Base Excess 2.0 FiO2 45 Sodium 140 140 Potassium 4.1 4.0 Chloride 106 108 H Carbon Dioxide 28 28 BUN 36 H 37 H Creatinine 1.33 H 1.26 H Estimated GFR 54 L 58 L BUN/Creatinine Ratio 27.1 H 29.4 H Glucose 106 155 H Lactate Calcium 8.8 8.3 L Total Bilirubin 1.2 0.9 AST 27 31 ALT 19 17 Alkaline Phosphatase 105 94 Troponin I NT-Pro-B Natriuret Pep Total Protein 5.9 L 5.6 L Albumin 3.1 L 2.7 L Globulin 2.8 2.9 Albumin/Globulin Ratio 1.1 0.9 L Urine Color Urine Appearance Urine pH Ur Specific [place] Urine Protein Urine Glucose (UA) Urine Ketones Urine Occult Blood Urine Nitrate Urine Bilirubin Ur Bilirubin Confirm Urine Urobilinogen Ur Leukocyte Esterase Urine RBC Urine WBC Ur Squamous Epith Cells Ur Transition Epith Cell Urine Bacteria Ur Culture Indicated? Vol Urine Centrifuged Nasal Screen MRSA (PCR) U Opiates 300ng/mL cut Ur Oxycodone Screen Urine Methadone Screen Ur Barbiturates Screen U Tricyclic Antidepress Ur Phencyclidine Scrn Ur Amphetamines Screen U Methamphetamines Scrn Ur MDMA Scrn (Ecstasy) U Benzodiazepines Scrn Urine Cocaine Screen U Marijuana (THC) Screen Urine Specific [place] Ur Creatinine Exam Vital Signs (past 8 hours): - 01/27/24 10:20 01/27/24 10:20 01/27/24 10:30 Temperature Pulse Rate 77 76 Respiratory Rate 17 16 Blood Pressure 140/78 Pulse Oximetry 92 92 Oxygen Delivery Method Oxygen Flow Rate Fraction of Inspired Oxygen 01/27/24 10:40 01/27/24 10:40 01/27/24 11:00 Temperature Pulse Rate 77 73 Respiratory Rate 18 19 Blood Pressure 139/76 Pulse Oximetry 91 92 Oxygen Delivery Method Oxygen Flow Rate Fraction of Inspired Oxygen 01/27/24 11:00 01/27/24 11:00 01/27/24 11:20 Temperature Pulse Rate 80 Respiratory Rate 17 Blood Pressure 158/94 H Pulse Oximetry 91 Oxygen Delivery Method Heated High Flow Oxygen Flow Rate Fraction of Inspired Oxygen 01/27/24 11:20 01/27/24 11:30 01/27/24 11:40 Temperature Pulse Rate 74 82 Respiratory Rate 18 14 Blood Pressure 132/80 Pulse Oximetry 91 96 Oxygen Delivery Method Oxygen Flow Rate Fraction of Inspired Oxygen 01/27/24 11:40 01/27/24 12:00 01/27/24 12:00 Temperature Pulse Rate 81 Respiratory Rate 8 L Blood Pressure 122/58 L 112/55 L Pulse Oximetry 95 Oxygen Delivery Method Oxygen Flow Rate Fraction of Inspired Oxygen 01/27/24 12:20 01/27/24 12:20 01/27/24 12:30 Temperature Pulse Rate 89 81 Respiratory Rate 17 0 L Blood Pressure 101/58 L Pulse Oximetry 94 89 L Oxygen Delivery Method Oxygen Flow Rate Fraction of Inspired Oxygen 01/27/24 12:40 01/27/24 12:40 01/27/24 13:00 Temperature Pulse Rate 77 76 Respiratory Rate Blood Pressure 108/56 L Pulse Oximetry 95 99 Oxygen Delivery Method Oxygen Flow Rate Fraction of Inspired Oxygen 01/27/24 13:00 01/27/24 13:11 01/27/24 13:11 Temperature Pulse Rate 80 Respiratory Rate 20 Blood Pressure 154/86 H 154/86 H Pulse Oximetry 94 94 Oxygen Delivery Method High Flow Nasal Cannula Oxygen Flow Rate 40 Fraction of Inspired Oxygen 45 01/27/24 13:20 01/27/24 13:20 01/27/24 13:30 Temperature Pulse Rate 88 83 Respiratory Rate Blood Pressure 129/71 Pulse Oximetry 90 L 94 Oxygen Delivery Method Oxygen Flow Rate Fraction of Inspired Oxygen 01/27/24 13:40 01/27/24 13:40 01/27/24 14:00 Temperature Pulse Rate 87 80 Respiratory Rate Blood Pressure 129/79 Pulse Oximetry 89 L 99 Oxygen Delivery Method Oxygen Flow Rate Fraction of Inspired Oxygen 01/27/24 14:00 01/27/24 14:20 01/27/24 14:20 Temperature Pulse Rate 86 Respiratory Rate Blood Pressure 131/68 130/63 Pulse Oximetry 99 Oxygen Delivery Method Oxygen Flow Rate Fraction of Inspired Oxygen 01/27/24 14:30 01/27/24 14:40 01/27/24 14:40 Temperature Pulse Rate 81 92 H Respiratory Rate Blood Pressure 111/58 L Pulse Oximetry 99 99 Oxygen Delivery Method Oxygen Flow Rate Fraction of Inspired Oxygen 01/27/24 15:00 01/27/24 15:00 01/27/24 15:00 Temperature 97.6 F Pulse Rate 89 Respiratory Rate Blood Pressure 106/57 L Pulse Oximetry 98 Oxygen Delivery Method Oxygen Flow Rate Fraction of Inspired Oxygen 01/27/24 15:00 01/27/24 15:20 01/27/24 15:20 Temperature Pulse Rate 90 Respiratory Rate Blood Pressure 111/57 L Pulse Oximetry 97 Oxygen Delivery Method Heated High Flow Oxygen Flow Rate Fraction of Inspired Oxygen 01/27/24 15:30 01/27/24 15:40 01/27/24 15:40 Temperature Pulse Rate 84 77 Respiratory Rate Blood Pressure 117/76 Pulse Oximetry 99 99 Oxygen Delivery Method Oxygen Flow Rate Fraction of Inspired Oxygen 01/27/24 16:00 01/27/24 16:00 01/27/24 16:20 Temperature Pulse Rate 80 85 Respiratory Rate Blood Pressure 126/71 Pulse Oximetry 99 100 Oxygen Delivery Method Oxygen Flow Rate Fraction of Inspired Oxygen 01/27/24 16:20 01/27/24 16:22 01/27/24 16:22 Temperature Pulse Rate 92 H Respiratory Rate Blood Pressure 90/53 L 91/53 L Pulse Oximetry 99 Oxygen Delivery Method Oxygen Flow Rate Fraction of Inspired Oxygen 01/27/24 16:30 01/27/24 16:40 01/27/24 16:40 Temperature Pulse Rate 78 82 Respiratory Rate Blood Pressure 131/74 Pulse Oximetry 99 99 Oxygen Delivery Method Oxygen Flow Rate Fraction of Inspired Oxygen 01/27/24 17:00 01/27/24 17:00 Temperature Pulse Rate 79 Respiratory Rate Blood Pressure 124/59 L Pulse Oximetry 99 Oxygen Delivery Method Oxygen Flow Rate Fraction of Inspired Oxygen Fraction of Inspired Oxygen 45 SaO2/FiO2 Ratio 208 Oxygen Delivery Method Heated High Flow Oxygen Flow Rate 40 Narrative Exam Narrative: on HFNC rate controlled currently somnolescent on precedex Quality TeleICU VTE Deep Vein Thrombosis/Pulmonary Embolism Present on Admission: No Assessment & Plan Assessment & Plan narrative: NEURO: # 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, folic acid, and MTV -- Start precedex gtt -- RASS goal -1 to 0 -- phenobarb prn RESP: # Acute hypoxemia respiratory failure -- Secondary to aspiration vs pulmonary edema vs PE -- On eliquis -- Check stat CXR + -- Monitor closely for need for endotracheal intubation -- HOB elevation -- Aspiration precaution -- Switch ceftriaxone to zosyn -- Goal SpO2 > 88% -- cont HFNC CVS: # A fib w/ RVR -- Secondary to hypoxemia and holiday heart syndrome -- Ordered digoxin 250 mcg IV once given soft BP -- High lytes goal -- On eliquis -- Goal HR < 110 # CHF -- Ordered lasix 40 mg IV once -- Strict I/O -- Place valdivia -- Low Na diet : -- High lytes goal -- Monitor UOP -- Ordered lasix 40 mg IV once ID: # Aspiration PNA -- Check blood cx -- Check resp cx -- Start zosyn -- Follow up cx ENDO: -- Goal BS < 180 D/w bedside RN. Time Spent With Patient Time with patient: 30 to 49 minutes with 50% spent counseling/coordinating care
--- NOTE | 2024-01-27 20:16 | PM.ICURNDS ---
- Date Patient Seen: 01/27/24 Time Patient Seen: 20:23 :: This patient was seen via real time interactive two-way audiovisual telecommunication. Note: Remains on precedex 0.6 mcg and levophed 0.08 mcg/kg/min. On HFNC 35/39%. Dodd replaced and draining out clear urine. Will hold lovenox pending resolution of hematuria. D/w bedside RN.
[2024-01-28] VITALS (79 sets, daily range): BP systolic 83–136; BP diastolic 48–82; PULSE 69–104; RESP 10–39; TEMP 36.1–36.9; O2SAT 88–98
[2024-01-28] MEDS: HYDROMORPHONE 1 MG INJ IV ×3 (01:22→18:23)
[2024-01-28] MEDS: dexmedeTOMIDine in 0.9 % NaCL 400 MCG/100 ML PLAST..BAG 8.709 MCG IV ×2 (01:23→11:37)
[2024-01-28] MEDS: DEXTROSE 5%-0.9% NS 1,000 ML 60 ML IV ×2 (01:23→18:23)
[2024-01-28 05:02] LABS: Magnesium 1.9 mg/dL (1.6-2.3)
[2024-01-28] MEDS: PIPERACILLIN/TAZO 3.375 GM in SODIUM CHLORIDE 0.9% 100 ML IV ×3 (05:54→21:18)
[2024-01-28 05:59] LABS: Hematocrit 30.9 % (41-53); Mean Corpuscular HGB Conc 32.5 % (30-36); Mean Corpuscular Hemoglobin 31.3 PG (26-34); Mean Corpuscular Volume 96.4 fL (80-100); Platelet Count 175 X10^3/uL (150-400); Red Blood Cell Count 3.21 X10^6/uL (4.5-5.9); Red Cell Distribution Width 13.6 % (11.6-14.8); White Blood Cell Count 12.7 X10^3/uL (4.5-11.0)
[2024-01-28 06:04] LABS: Alanine Aminotransferase 14 IU/L (<50); Albumin 2.3 g/dL (3.5-5.0); Albumin Globulin Ratio 0.9 (1.0-2.8); Alkaline Phosphatase 76 U/L (38-126); Aspartate Aminotransferase 24 IU/L (17-59); BUN Creatinine Ratio 28.7 (6-22); Bilirubin Total 0.8 mg/dL (0.2-1.3); Blood Urea Nitrogen 37 mg/dL (9-20); Carbon Dioxide 32 mmol/L (22-32); Chloride 111 mmol/L (98-107); Estimated Glomerular Filt Rate 56 mL/min (>60); Globulin 2.6 g/dL (1.7-4.1); Glucose 180 mg/dL (80-110); HEMOLYSIS < 15 (0-50); Potassium 3.9 mmol/L (3.4-5.1); Sodium 140 mmol/L (137-145); Total Protein 4.9 g/dL (6.3-8.2)
--- NOTE | 2024-01-28 06:25 | PC.NURSE ---
Patient rested well throughout the night. Alert to self, follows commands intermittently, makes needs known. Moves all extremities with noted significant weakness to L side. Rate controlled Afib, Afebrile, tolerating HFNC 40L/35%, crackles and diminished lung sounds noted. NPO with hypoactive bowel sounds. PIV x2 intact/saline locked, triple lumen PICC to RUE intact blood return noted. D5NS running at 60mL/hr. Precedex titrated to keep patient comfortable enough to tolerate HFNC. Norepinepherine titrated to maintain a MAP >65. BG WNL. Patient maintains tolerable pain, via FLACC scale with PRN Dilaudid. CIWA=0-1 throughout shift. Gross hematuria noted at the start of shift, catheter flushed but did not return flushed fluid. Patient began to urinate around catheter, catheter removed. Catheter replaced with 20g Coude, immediately returned 1000mL or clear yellow urine. Urine output total for cage shift manager >1400mL including incontinent urine between catheters. Patient turned q2, and bridged for skin protection. Call light within reach.
[2024-01-28] MEDS: FOLIC ACID 1 MG in SODIUM CHLORIDE 0.9% 100 ML 200.4 MG IV (08:39)
[2024-01-28] MEDS: ENOXAPARIN 60 MG/0.6 ML SYRINGE SUBCUT ×2 (08:39→20:53)
[2024-01-28] MEDS: THIAMINE 100 MG in SODIUM CHLORIDE 0.9% 100 ML 404 MG IV ×3 (08:56→20:52)
--- NOTE | 2024-01-28 12:27 | CM.DPNOTE ---
DCP Note ENRICHMENT TEACHER reviewed EMR. Per hospitalist in morning rounds, pt potentially had a bad rx to Ativan. Per chart review, pt remains on precedex. Per RN note, pt urinary concern managed after new catheter replaced. ENRICHMENT TEACHER spoke with Hiral at , can take once off CIWA protocol as long as pt aware cannot smoke at SNF. Pt remains sedated at this time. Per RN, dtr plans to return later this afternoon. SILVINA/scarlett auth need. Scarlett auth needed closer to dc. ENRICHMENT TEACHER will complete PASRR when pt is alert to assess for more accurate MH needs. Plan: anticipate dc to when medically stable. CM team will continue to follow closely. JOSE RAMON Christiansen
--- NOTE | 2024-01-28 13:58 | OT.IPNOTE ---
Discussed in rounds, pt is currently not appropriate to participate in therapy. Will hold per MD and continue to follow.
--- NOTE | 2024-01-28 16:16 | P.PN_ITS ---
Subjective Subjective Date Patient Seen: 01/27/24 Interval history: Remains on precedex. Sleepy this morning. When more alert pulls at oxygen, attempting to keep him a bit on the somnolent side while treating his respiratory failure. Exam Vital Signs (past 8 hours): - 01/28/24 08:30 01/28/24 08:30 01/28/24 08:45 Temperature Pulse Rate 94 H 92 H Respiratory Rate 25 H 24 Blood Pressure 103/55 L Pulse Oximetry 92 93 Oxygen Delivery Method 01/28/24 08:45 01/28/24 09:00 01/28/24 09:00 Temperature Pulse Rate 89 Respiratory Rate 18 Blood Pressure 102/51 L 97/51 L Pulse Oximetry 92 Oxygen Delivery Method 01/28/24 09:00 01/28/24 09:17 01/28/24 09:17 Temperature Pulse Rate 102 H Respiratory Rate 20 Blood Pressure 94/54 L Pulse Oximetry 90 L Oxygen Delivery Method Heated High Flow 01/28/24 09:18 01/28/24 09:30 01/28/24 09:30 Temperature Pulse Rate 100 H 100 H Respiratory Rate 18 27 H Blood Pressure 94/53 L Pulse Oximetry 91 89 L Oxygen Delivery Method 01/28/24 09:45 01/28/24 09:45 01/28/24 10:00 Temperature Pulse Rate 99 H 91 H Respiratory Rate 23 39 H Blood Pressure 95/52 L Pulse Oximetry 91 92 Oxygen Delivery Method 01/28/24 10:00 01/28/24 10:15 01/28/24 10:15 Temperature Pulse Rate 92 H Respiratory Rate 32 H Blood Pressure 94/51 L 99/50 L Pulse Oximetry 91 Oxygen Delivery Method 01/28/24 10:30 01/28/24 10:30 01/28/24 10:45 Temperature Pulse Rate 91 H 90 Respiratory Rate 39 H 39 H Blood Pressure 90/53 L Pulse Oximetry 90 L 91 Oxygen Delivery Method 01/28/24 10:45 01/28/24 11:00 01/28/24 11:00 Temperature Pulse Rate 87 Respiratory Rate 31 H Blood Pressure 95/53 L 115/54 L Pulse Oximetry 92 Oxygen Delivery Method 01/28/24 11:15 01/28/24 11:15 01/28/24 11:30 Temperature Pulse Rate 92 H 82 Respiratory Rate 25 H 19 Blood Pressure 101/54 L Pulse Oximetry 89 L 93 Oxygen Delivery Method 01/28/24 11:30 01/28/24 11:40 01/28/24 11:45 Temperature Pulse Rate 76 89 Respiratory Rate 14 27 H Blood Pressure 100/54 L Pulse Oximetry 91 88 L Oxygen Delivery Method 01/28/24 11:45 01/28/24 12:00 01/28/24 12:00 Temperature Pulse Rate 83 Respiratory Rate 13 Blood Pressure 101/53 L 109/54 L Pulse Oximetry 95 Oxygen Delivery Method 01/28/24 12:15 01/28/24 12:15 01/28/24 12:30 Temperature Pulse Rate 79 76 Respiratory Rate 11 L 11 L Blood Pressure 112/57 L Pulse Oximetry 92 92 Oxygen Delivery Method 01/28/24 12:30 01/28/24 12:45 01/28/24 12:45 Temperature Pulse Rate 77 Respiratory Rate 11 L Blood Pressure 120/59 L 121/58 L Pulse Oximetry 98 Oxygen Delivery Method 01/28/24 13:00 01/28/24 13:00 01/28/24 13:00 Temperature Pulse Rate 85 Respiratory Rate 26 H Blood Pressure 116/65 Pulse Oximetry 90 L Oxygen Delivery Method Heated High Flow 01/28/24 13:00 01/28/24 13:30 01/28/24 13:30 Temperature 98.5 F Pulse Rate 83 Respiratory Rate 28 H Blood Pressure 114/55 L Pulse Oximetry 95 Oxygen Delivery Method 01/28/24 14:00 01/28/24 14:00 01/28/24 14:30 Temperature Pulse Rate 81 80 Respiratory Rate 30 H 14 Blood Pressure 116/55 L Pulse Oximetry 96 93 Oxygen Delivery Method 01/28/24 14:30 01/28/24 14:50 01/28/24 15:00 Temperature Pulse Rate 91 H Respiratory Rate 12 Blood Pressure 114/58 L 129/65 Pulse Oximetry 95 Oxygen Delivery Method 01/28/24 15:00 Temperature Pulse Rate 77 Respiratory Rate 21 Blood Pressure Pulse Oximetry 94 Oxygen Delivery Method Fraction of Inspired Oxygen 45 SaO2/FiO2 Ratio 215 Oxygen Delivery Method Heated High Flow Oxygen Flow Rate 40 Narrative Exam Narrative: Gen: Thin, elderly male, L arm no longer in sling, no acute distress. Somnolent on precedex. CV: RRR, no m/r/g Pulm: CTA b/l Abd: S NT ND Ext: thin, no edema. Objective Labs 01/28/24 04:35 01/28/24 04:35 Labs: Laboratory Results - last 24 hr 01/27/24 01/28/24 16:10 04:35 WBC 14.8 H 12.7 H RBC 3.64 L 3.21 L Hgb 11.3 L 10.0 L Hct 35.3 L 30.9 L MCV 97.0 96.4 MCH 31.1 31.3 MCHC 32.0 32.5 RDW 13.8 13.6 Plt Count 203 175 Neut % (Auto) 90.9 H Lymph % (Auto) 4.4 L [place] % (Auto) 4.4 Eos % (Auto) 0.1 L Baso % (Auto) 0.2 Neut # (Auto) 64527 H Lymph # (Auto) 700 L [place] # (Auto) 600 Eos # (Auto) 0 Baso # (Auto) 0 Sodium 140 140 Potassium 4.0 3.9 Chloride 108 H 111 H Carbon Dioxide 28 32 BUN 37 H 37 H Creatinine 1.26 H 1.29 H Estimated GFR 58 L 56 L BUN/Creatinine Ratio 29.4 H 28.7 H Glucose 155 H 180 H Calcium 8.3 L 8.0 L Magnesium 1.9 Total Bilirubin 0.9 0.8 AST 31 24 ALT 17 14 Alkaline Phosphatase 94 76 Total Protein 5.6 L 4.9 L Albumin 2.7 L 2.3 L Globulin 2.9 2.6 Albumin/Globulin Ratio 0.9 L 0.9 L PFSH Medical History Gout COPD (chronic obstructive pulmonary disease) Peripheral neuropathy Retinal detachment Peripheral vascular disease Essential hypertension (11/01/17) Pure hypercholesterolemia (04/24/16) Systolic congestive heart failure (04/24/16) Atrial fibrillation (04/24/16) Arterial embolism of left leg Surgical History Anesthesia History of surgery History of eye surgery History of cataract removal with insertion of prosthetic lens Family History Father History of heart disease Sister Cancer Social History household members: none Smoking Status: Former smoker alcohol intake: current Assessment & Plan Assessment & Plan narrative: Markos Savage is an 78yo male with history of alcohol use, atrial fibrillation on Eliquis, HTN, COPD, PVD, CHF and tobacco use who presented with a ground level fall and continued inability to ambulate since the fall. Acute hypoxic respiratory failure -the patient appears to have RLL aspiration pneumonia with acute deterioration on 01/26/2024 and is being treated for that. -the patient does not appear to be in significant CHF at this time -the patient has severe agitation from alcohol withdrawal complicating treatment of the hypoxic respiratory failure. -the patient is being followed by the critical care bench assembler operator by tele video. -continue high-flow nasal cannula oxygen, IV fluid support while NPO, Levophed as needed, Precedex for alcohol withdrawal agitation, Zosyn. -echocardiogram without evidence of significant worsened cardiomyopathy. Ejection fraction is 45-55%. -Consider alternative feedings like TPN, but will give another day to see if encephalopathy / delirum # Ambulatory Dysfunction: # Ground Level Fall: # Lower Extremity Weakness with history of T6 Compression Fracture: His fall was likely secondary to alcohol intoxication though does have bilateral weakness with T6 compression fracture. He could not tolerate the planned MR of T spine to make sure no spinal pathology and the Shoulder MR plan was also deferred. - Treat alcohol and hypomagnesemia as noted below. - PT/OT consulted and currently on hold - Given his lower extremity weakness and history of T6 compression fracture, tried to do a thoracic spine MRI to rule out acute issue, though he does not have other clinical signs of cord compression. -defer left shoulder MRI for now # Severe alcohol withdrawal with delirium Unclear how much he truly drinks in a given day/week, he only endorses 3-4 norbert's hard lemonade a day today. Denies prior seizure or shaking when not drinking. - Now in ICU - Precedex drip, Phenobarbital TID and Haldol. Does not respond well to Lorazepam. - Continue IV Thiamine and Folate. - possible sepsis contributing as well. # Hypomagnesemia: - Received replacement in the ED. - Follow # Left Humeral Head Fracture: Mildly displaced per x-ray. - Continue sling. Non-operative with outpatient management for now, discussed with orthopedics whom recommended MRI for this patient for further evaluation for possible rotator cuff injury. - PRN Hydrocodone and IV Dilaudid while sedated. -shoulder MRI deferred for now as noted above. # Atrial Fibrillation, Persistent: - continue home Metoprolol and Eliquis. # Essential Hypertension: Controlled. - Continue home metoprolol XL and lisinopril. # Chronic HFrEF: Last LVEF was 30% via TTE in 2022. Now with EF of 45-55% - Continue home metoprolol XL, lisinopril, atorvastatin. Holding furosemide and spironolactone for now, consider resuming in 1-2 days. # Sepsis with septic shock with MAGALYS, acute metabolic encephalopathy, elevated bilirubin Right Sided Aspiration Pneumonia - New infiltrates on CXR 01/26/24 - Ceftriaxone 1 gm Q24h, changed to Zosyn. Leukocytosis improving. - has been on intermittent levophed for soft BP. wean as tolerated with MAP >65. #tobacco use - nicotine patch Placement -[facility] has reviewed and accepted him when he is ready. #malnutrition - dietary consultation ordered, suspect severe chronic protein calorie malnutrition given his muscle wasting and weakness. Nutrition diagnosis: Severe Chronic Protein Calorie Malnutrition r/t to decreased energy intake and increased protein needs with CHF as evidenced by severe muscle wasting (temporalis, interosseous) and severe subcutaneous fat loss (buccal and orbital fat pads), <75% of estimated energy requirements for >1 month, BMI 20.6 (underweight for age), and substance abuse. Will continue with dietary treatment recommendations, consider TPN. Code Status: Full Code, surrogate is patient's daughter. DVT: on Eliquis Dispo: SNF when improved, but remains ICU status on precedex infusion. I spent 35 minutes providing critical care management this patient. This excludes time spent in performing separately billed procedures. Quality VTE Deep Vein Thrombosis/Pulmonary Embolism Present on Admission: No
[2024-01-28] MEDS: PHENobarbital 65 MG/ML VIAL IV ×2 (16:30→22:44)
[2024-01-28] MEDS: dexmedeTOMIDine in 0.9 % NaCL 400 MCG/100 ML PLAST..BAG 14.515 MCG IV ×2 (16:34→23:43)
--- NOTE | 2024-01-28 16:35 | PC.NURSE ---
Day Shift Note Pt drowsy, sedated on precedex 0.6 mcg/kg/hr at start of shift. On heated HGNC 40L and 35% FiO2. Answers to voice and can follow some commands, opening eyes when asked. Intermittently cooperative, does make attempts to remove oxygen and is difficult to redirect, SpO2 decreases to 80% on RA and pt is very slow to recover SpO2 when oxygen replaced, precedex titrated as needed (see emar). Pt calls out periodically, speech does not always make sense. States clearly leave me alone and no when asked questions. Mostly denies pain other than this morning, unable to report location of pain, medicated with Dilaudid per emar. Periods of agitation increasing this afternoon despite increase in precedex, pt reporting seeing bugs down below, eyes remain closed. Medicated with phenobarbital per emar. CIWA fluctuates 0-8 this shift. Dodd catheter draining clear yellow urine, about 275-300 ml visualized in urometer, bladder scanned to ensure no draining issues, bladder scan amount 0 ml, no bladder distention present. Levophed off this morning at 0845, MAP 65 and above, see VS trends. Afib CVR in the 70-90s. Bed alarm on for safety.
--- NOTE | 2024-01-28 20:29 | PM.PN.EICU ---
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-student financial services counselor care: Yes Patient Location: ICU Provider location (State): [place] Other participants/roles: RN Interval history: pt remains on HFNC and is delirious with high doses of precedex needed at times Current Medications Current Medications Medications: Home Medications lisinopril 10 mg tablet 5 mg (1/2 x 10 mg) PO BID #180 tabs 11/01/22 [Rx Confirmed 01/25/24] spironolactone 25 mg tablet 25 mg PO DAILY #90 tabs 02/06/23 [Rx Confirmed 01/25/24] metoprolol succinate 50 mg tablet,extended release 24 hr 50 mg PO BID #180 tabs 08/10/23 [Rx Confirmed 01/25/24] apixaban 2.5 mg tablet (Eliquis) 2.5 mg PO BID #60 tabs 08/27/23 [Rx Confirmed 01/25/24] atorvastatin 80 mg tablet 80 mg PO BEDTIME #30 tabs 10/24/23 [Rx Confirmed 01/25/24] furosemide 20 mg tablet 20 mg PO BID #180 tabs 11/12/23 [Rx Confirmed 01/25/24] Visit Medications (administered) Generic Name Dose Route Start Last Admin Trade Name Freq PRN Reason Stop Dose Admin Hydrocodone Bitart/Acetaminophen 1 tab 01/25/24 00:28 01/26/24 09:15 Hydrocodone/Acet 5/325 Tablet PO 1 tab Q6HR PRN Administration Pain, Moderate (4-6) Atorvastatin Calcium 80 mg 01/25/24 21:00 01/26/24 20:37 Atorvastatin 20 Mg Tablet PO Not Given BEDTIME FRANKO Enoxaparin Sodium 60 mg 01/27/24 10:30 01/28/24 08:39 Enoxaparin 60 Mg/0.6 Ml Syringe SUBCUT 60 mg BID FRANKO Administration Haloperidol 2 mg 01/27/24 08:00 01/27/24 08:12 Haloperidol 5 Mg/Ml Vial IV 2 mg Q1H PRN Administration Agitation Hydromorphone HCl 1 mg 01/27/24 08:22 01/28/24 18:23 Hydromorphone 1 Mg Inj IV 1 mg Q3H PRN Administration Pain, Moderate (4-6) Hydromorphone HCl 2 mg 01/27/24 11:09 01/27/24 11:29 Hydromorphone 2 Mg Inj IV 2 mg Q2H PRN Administration Pain, Severe (7-10) dexmedeTOMIDine in 0.9 % NaCL 400 mcg in 100 mls @ 2.903 mls/hr 01/26/24 19:30 01/28/24 16:34 Precedex IV 1 mcg/kg/hr TITRATE FRANKO 14.515 mls/hr Administration Protocol 0.2 MCG/KG/HR NOREPINEPHRINE BITARTRATE/D5W 4 mg in 250 mls @ 21.773 mls/hr 01/26/24 21:14 01/28/24 08:45 Levophed IV 0 mcg/kg/min TITRATE FRANKO 0 mls/hr Titration Protocol 0.1 MCG/KG/MIN Piperacillin Sod/Tazobactam 100 mls @ 25 mls/hr 01/27/24 14:00 01/28/24 18:24 Sod 3.375 gm/ Sodium Chloride IV Infused Q8H FRANKO Infusion Dextrose/Sodium Chloride 1,000 mls @ 60 mls/hr 01/27/24 09:00 01/28/24 18:23 Dextrose 5%-0.9% Ns IV 60 mls/hr CONT FRANKO Administration Thiamine HCl 100 mg/ Sodium 101 mls @ 404 mls/hr 01/27/24 10:30 01/28/24 14:30 Chloride IV Infused TID FRANKO Infusion Folic Acid 1 mg/ Sodium 100.2 mls @ 200.4 mls/hr 01/27/24 10:45 01/28/24 09:53 Chloride IV Infused DAILY FRANKO Infusion Multivitamins 1 tab 01/25/24 09:00 01/27/24 11:05 Multivitamin 1 Tablet PO Not Given DAILY [facility] Nicotine 14 mg 01/25/24 12:45 01/28/24 08:56 Nicotine 14 Patch TOP Not Given DAILY [facility] Ondansetron HCl 4 mg 01/24/24 22:11 01/26/24 18:06 Ondansetron 4 Mg/2 Ml Inj IV 4 mg Q6HR PRN Administration Nausea And Vomiting Phenobarbital 65 mg 01/27/24 18:04 01/28/24 16:30 Phenobarbital 65 Mg/Ml Vial IV 65 mg Q6HR PRN Administration Agitation Objective Ventilator Parameters: Ventilator Settings FiO2 35 Labs 01/28/24 04:35 01/28/24 04:35 Labs: Laboratory Results - last 24 hr 01/28/24 04:35 WBC 12.7 H RBC 3.21 L Hgb 10.0 L Hct 30.9 L MCV 96.4 MCH 31.3 MCHC 32.5 RDW 13.6 Plt Count 175 Sodium 140 Potassium 3.9 Chloride 111 H Carbon Dioxide 32 BUN 37 H Creatinine 1.29 H Estimated GFR 56 L BUN/Creatinine Ratio 28.7 H Glucose 180 H Calcium 8.0 L Magnesium 1.9 Total Bilirubin 0.8 AST 24 ALT 14 Alkaline Phosphatase 76 Total Protein 4.9 L Albumin 2.3 L Globulin 2.6 Albumin/Globulin Ratio 0.9 L Exam Vital Signs (past 8 hours): - 01/28/24 12:30 01/28/24 12:30 01/28/24 12:45 Temperature Pulse Rate 76 77 Respiratory Rate 11 L 11 L Blood Pressure 120/59 L Pulse Oximetry 92 98 Oxygen Delivery Method 01/28/24 12:45 01/28/24 13:00 01/28/24 13:00 Temperature Pulse Rate 85 Respiratory Rate 26 H Blood Pressure 121/58 L Pulse Oximetry 90 L Oxygen Delivery Method Heated High Flow 01/28/24 13:00 01/28/24 13:00 01/28/24 13:30 Temperature 98.5 F Pulse Rate 83 Respiratory Rate 28 H Blood Pressure 116/65 Pulse Oximetry 95 Oxygen Delivery Method 01/28/24 13:30 01/28/24 14:00 01/28/24 14:00 Temperature Pulse Rate 81 Respiratory Rate 30 H Blood Pressure 114/55 L 116/55 L Pulse Oximetry 96 Oxygen Delivery Method 01/28/24 14:30 01/28/24 14:30 01/28/24 14:50 Temperature Pulse Rate 80 91 H Respiratory Rate 14 12 Blood Pressure 114/58 L Pulse Oximetry 93 95 Oxygen Delivery Method 01/28/24 15:00 01/28/24 15:00 01/28/24 15:30 Temperature Pulse Rate 77 80 Respiratory Rate 21 22 Blood Pressure 129/65 Pulse Oximetry 94 93 Oxygen Delivery Method 01/28/24 15:30 01/28/24 16:00 01/28/24 16:00 Temperature Pulse Rate 75 Respiratory Rate 20 Blood Pressure 126/79 130/61 Pulse Oximetry 94 Oxygen Delivery Method 01/28/24 16:30 01/28/24 16:49 01/28/24 17:00 Temperature Pulse Rate 80 79 Respiratory Rate 20 15 Blood Pressure Pulse Oximetry 92 94 Oxygen Delivery Method Heated High Flow 01/28/24 17:00 01/28/24 17:30 01/28/24 17:31 Temperature Pulse Rate 75 74 Respiratory Rate 13 12 Blood Pressure 136/66 Pulse Oximetry 93 93 Oxygen Delivery Method 01/28/24 18:00 01/28/24 18:00 Temperature Pulse Rate 74 Respiratory Rate 18 Blood Pressure 127/58 L Pulse Oximetry 92 Oxygen Delivery Method Fraction of Inspired Oxygen 45 SaO2/FiO2 Ratio 215 Oxygen Delivery Method Heated High Flow Oxygen Flow Rate 40 Quality TeleICU VTE Deep Vein Thrombosis/Pulmonary Embolism Present on Admission: No Assessment & Plan Assessment & Plan narrative: NEURO: # 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, folic acid, and MTV -- Start precedex gtt -- RASS goal -1 to 0 -- phenobarb prn RESP: # Acute hypoxemia respiratory failure -- Secondary to aspiration vs pulmonary edema vs PE -- On eliquis -- Check stat CXR + -- Monitor closely for need for endotracheal intubation -- HOB elevation -- Aspiration precaution -- Switch ceftriaxone to zosyn -- Goal SpO2 > 88% -- cont HFNC CVS: # A fib w/ RVR -- Secondary to hypoxemia and holiday heart syndrome -- Ordered digoxin 250 mcg IV once given soft BP -- High lytes goal -- On eliquis -- Goal HR < 110 # CHF -- Ordered lasix 40 mg IV once -- Strict I/O -- Place valdivia -- Low Na diet : -- High lytes goal -- Monitor UOP -- Ordered lasix 40 mg IV once ID: # Aspiration PNA -- Check blood cx -- Check resp cx -- Start zosyn -- Follow up cx ENDO: -- Goal BS < 180 Pt remains on HFNC at 35% fio2. main concern is delirium. I will add melatonin to assist with icu related delirium. if fio2 requirements are not changing by toimorrow I will add a CT chest to better visulkize his paranchyma and r/o other etiolgies such as an organizing pna etc. total cct 35 min D/w bedside RN. Time Spent With Patient Time with patient: 30 to 49 minutes with 50% spent counseling/coordinating care
[2024-01-29] VITALS (55 sets, daily range): BP systolic 118–145; BP diastolic 55–90; PULSE 61–86; RESP 9–39; TEMP 35.5–37.1; O2SAT 88–100
[2024-01-29] MEDS: HYDROMORPHONE 1 MG INJ IV ×3 (01:14→12:28)
[2024-01-29 05:03] LABS: Hematocrit 28.4 % (41-53); Hemoglobin 9.5 g/dL (13.5-17.5); Mean Corpuscular HGB Conc 33.4 % (30-36); Mean Corpuscular Hemoglobin 32.1 PG (26-34); Mean Corpuscular Volume 96.2 fL (80-100); Platelet Count 148 X10^3/uL (150-400); Red Blood Cell Count 2.95 X10^6/uL (4.5-5.9); Red Cell Distribution Width 14.1 % (11.6-14.8); White Blood Cell Count 7.8 X10^3/uL (4.5-11.0)
[2024-01-29 05:16] LABS: BUN Creatinine Ratio 29.9 (6-22); Blood Urea Nitrogen 26 mg/dL (9-20); Calcium 7.6 mg/dL (8.4-10.2); Carbon Dioxide 28 mmol/L (22-32); Chloride 121 mmol/L (98-107); Estimated Glomerular Filt Rate > 60 mL/min (>60); Glucose 305 mg/dL (80-110); HEMOLYSIS < 15 (0-50); Magnesium 1.9 mg/dL (1.6-2.3); Potassium 3.4 mmol/L (3.4-5.1); Sodium 145 mmol/L (137-145)
[2024-01-29] MEDS: PIPERACILLIN/TAZO 3.375 GM in SODIUM CHLORIDE 0.9% 100 ML IV ×3 (05:20→21:30)
[2024-01-29] MEDS: PHENobarbital 65 MG/ML VIAL IV (05:20)
[2024-01-29] MEDS: dexmedeTOMIDine in 0.9 % NaCL 400 MCG/100 ML PLAST..BAG 14.515 MCG IV (05:54)
--- NOTE | 2024-01-29 07:05 | PC.NURSE ---
Patient restless throughout the night. Precedex gtt and Phenobarbital given for agitation. Alert and oriented to person and birthday. VSS, rate controlled afebrile, tolerating HFNC 40L and 35%, desats to 70s when he rips it off. NPO. PICC intact. Dilaudid given for FLACC pain scale. Mittens applied because patient rips equipment off and tries to break it. Labile behavior.
[2024-01-29] MEDS: ENOXAPARIN 60 MG/0.6 ML SYRINGE SUBCUT ×2 (08:39→20:02)
[2024-01-29] MEDS: FOLIC ACID 1 MG in SODIUM CHLORIDE 0.9% 100 ML 200.4 MG IV (08:40)
--- NOTE | 2024-01-29 09:22 | CM.DPNOTE ---
DCP Note HOME ENERGY INSPECTOR reviewed EMR. Per RN, had to turn up pt's precedex overnight. Remains on high flow oxygen. Not alert enough for DCP conversation. CM team will continue to send Danni [place] updated clinicals throughout pt's stay. Current plan is for pt to dc there when medically stable, pending pt's consent. PASRR needed- CM team will complete when more alert. JOSE RAMON Christiansen
--- NOTE | 2024-01-29 09:37 | DIET.CONS ---
Dietary Consultation Note Admission Date: 01/24/2024 21:04 Assessment: 78 y M presents with generalized weakness and frequent falls. PMH of alcohol abuse and CHF. Nutrition screened for TPN reccs. Pt remains on Precedex to reduce agitation from alcohol withdrawal. Remains on oxygen. Per healthcare team rounds, starting TPN. Nutrition focused physical exam performed 01/24/24. Ht: 167.64 cm Wt: 58.06 kg BMI: 20.6 UBW: 54-58 kg per pt Last BM: 01/25/24 (01/25/24 12:00) MNA: 8 Misael Score: 16 Diet: 01/27/24 08:35 NPO Diet Diet Modifications: May Advance Diet as Tolerated: Yes NPO Type: Strict Labs: RBC 2.95 X10^6/uL (4.5-5.9) L 01/29/24 04:57 Hgb 9.5 g/dL (13.5-17.5) L 01/29/24 04:57 Hct 28.4 % (41-53) L 01/29/24 04:57 Creatinine 0.87 mg/dL (0.66-1.25) 01/29/24 04:57 Lactate 1.5 mmol/L (0.7-2.1) 01/26/24 21:16 NT-Pro-B Natriuret Pep 08053 pg/mL (<450) H 01/26/24 19:00 Nutrition Diagnosis: Severe Chronic Protein Calorie Malnutrition r/t to decreased energy intake and increased protein needs with CHF as evidenced by severe muscle wasting (temporalis, interosseous) and severe subcutaneous fat loss (buccal and orbital fat pads), <75% of estimated energy requirements for >1 month, BMI 20.6 (underweight for age), and substance abuse. Interventions: Recc continuous TPN via PICC as follows: Day 1. 1 L Clinimix 5/20 running at 20 mL/hr for first 24 h. Pt at risk for refeeding syndrome secondary to severe malnutrition, recc checking magnesium, phosphorus, and potassium bid and replete as needed. Day 2: If pt tolerating with no signs of refeeding, 1 L Clinimix 5/20 running at 41 mL/hr. Day 3: If pt tolerating with no signs of refeeding- Goal rate: 1.5 L Clinimix 5/20 running at 62 mL/hr with 500 mL IVFE 3x/week providing 90% of estimated energy needs and 86% of estimated protein needs once at this goal rate. Continue 1.5 L Clinimix 5/20 running at 62 mL/hr with lipids 3x/week until pt is able to meet 75% of estimated energy needs with PO intake. EER: 2707-0565 kcals/day (30 kcals/kg per BMI) 85-95 g protein/day (1.5 g/kg for severe malnutrition) Monitoring/Evaluations: following closely Electronically Signed by: Fely Wallace 01/29/24 09:37 Clinical Dietitian [address] [address]
--- NOTE | 2024-01-29 09:38 | DI.RAD.S_ITS ---
PROCEDURE: XR CHEST 1V INDICATIONS: continued hypoxia TECHNIQUE: One view of the chest was acquired. COMPARISON: [facility], CR, XR CHEST FOR PICC 1V, 01/27/2024, 12:06. FINDINGS: Surgical changes and devices: Right-sided PICC line tip is in SVC. Lungs and pleura: Chronic emphysematous changes are seen. Small to moderate bilateral pleural effusion are seen more prominent on the left side. Underlying bilateral lower lobe infiltrate/atelectasis cannot be excluded. There is suggestion of pulmonary edema. No gross pneumothorax. Mediastinum: Mediastinal contours appear normal. Heart size is enlarged Bones and chest wall: No suspicious bony lesions. Overlying soft tissues appear unremarkable. IMPRESSION: Persistent CHF changes, cannot rule out underlying bilateral lower lobe infiltrates. No gross pneumothorax. Dictated by: Neil Younger M.D. on 01/29/2024 at 10:20 Approved by: Neil Younger M.D. on 01/29/2024 at 10:21
[2024-01-29] MEDS: THIAMINE 100 MG in SODIUM CHLORIDE 0.9% 100 ML 404 MG IV ×3 (10:23→20:02)
[2024-01-29] MEDS: DEXTROSE 5%-0.9% NS 1,000 ML 60 ML IV (10:23)
[2024-01-29] MEDS: POTASSIUM CHLORIDE IN WATER 10 MEQ/100 ML PIGGYBACK 100 MEQ IV ×2 (10:39→11:16)
--- NOTE | 2024-01-29 11:06 | PT-IP ANOTE ---
Pt not medically appropriate for PT at this time. Per hospitalist d/c therapy order for now and will order therapy again when appropriate.
--- NOTE | 2024-01-29 11:07 | OT.IPNOTE ---
Per BREAK OUT MAN during hospital rounds, hospitalist states okay to discharge pt off therapy services due not appropriate at this time due to medical decline.
[2024-01-29] MEDS: dexmedeTOMIDine in 0.9 % NaCL 400 MCG/100 ML PLAST..BAG 21.773 MCG IV ×3 (11:16→20:11)
[2024-01-29] MEDS: PHENobarbital 65 MG/ML VIAL 130 MG IV ×2 (12:26→20:42)
--- NOTE | 2024-01-29 12:53 | PT.IPTN ---
Current Diagnoses Alcohol abuse, uncomplicated (01/24/24) Metabolic encephalopathy (01/24/24) Unspecified fracture of shaft of humerus, left arm, initial encounter for closed fracture (01/24/24) Physical Therapy Treatment Note M2 PT-IP Current Condition Start: 01/25/24 11:40 Freq: NEEDED Status: Active Protocol: Document 01/25/24 10:05 AB (Rec: 01/25/24 11:57 AB [id number]) Physical Therapy Current Condition Current Condition Evaluation Date 01/25/24 Treatment Diagnosis s/p fall; L humeral head fx; T6 compression fx; difficulty in walking Onset Date 01/24/24 M3 PT-IP Subjective Start: 01/25/24 11:40 Freq: NEEDED Status: Active Protocol: Document 01/29/24 12:51 AB (Rec: 01/29/24 12:53 AB [id number]) Subjective Physical Therapy Visit Type Type Administrative Note Notes per hospitalist during rounds meeting: pt with a decline in medical status and is not appropriate to do PT. stated to d/c PT and will re order eval when pt becomes more stable to do PT. M M7 PT-IP Assessment and Plan Start: 01/25/24 11:40 Freq: NEEDED Status: Active Protocol: Document 01/29/24 12:51 AB (Rec: 01/29/24 12:53 AB [id number]) PT Summary Assessment and Plan Frequency of Treatment Frequency Of Treatment Discharge
--- NOTE | 2024-01-29 13:06 | PC.NURSE ---
Pt has intermittent period of extreme agitation throughout the shift, thrashing head and able to remove HHF, mitts in place for line protection, Precedex 1.5 mcg for agitation, Dilaudid, phenobarbital administered as ordered. HHF 40L 35% sats 94%, quickly desats to 60's when removed. NPO, PICC in place, FLACC pain scale used, no further needs at this time.
--- NOTE | 2024-01-29 13:24 | P.TELICUPN_ITS ---
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-architectural administrative assistant care: Yes Patient Location: ICU Provider location (State): [place] Other participants/roles: rn Interval history: pt remians on HFNC, agitation remains a big issue Off pressors Current Medications Current Medications Medications: Home Medications lisinopril 10 mg tablet 5 mg (1/2 x 10 mg) PO BID #180 tabs 11/01/22 [Rx Confirmed 01/25/24] spironolactone 25 mg tablet 25 mg PO DAILY #90 tabs 02/06/23 [Rx Confirmed 01/25/24] metoprolol succinate 50 mg tablet,extended release 24 hr 50 mg PO BID #180 tabs 08/10/23 [Rx Confirmed 01/25/24] apixaban 2.5 mg tablet (Eliquis) 2.5 mg PO BID #60 tabs 08/27/23 [Rx Confirmed 01/25/24] atorvastatin 80 mg tablet 80 mg PO BEDTIME #30 tabs 10/24/23 [Rx Confirmed 01/25/24] furosemide 20 mg tablet 20 mg PO BID #180 tabs 11/12/23 [Rx Confirmed 01/25/24] Visit Medications (administered) Generic Name Dose Route Start Last Admin Trade Name Freq PRN Reason Stop Dose Admin Hydrocodone Bitart/Acetaminophen 1 tab 01/25/24 00:28 01/26/24 09:15 Hydrocodone/Acet 5/325 Tablet PO 1 tab Q6HR PRN Administration Pain, Moderate (4-6) Atorvastatin Calcium 80 mg 01/25/24 21:00 01/26/24 20:37 Atorvastatin 20 Mg Tablet PO Not Given BEDTIME FRANKO Enoxaparin Sodium 60 mg 01/27/24 10:30 01/29/24 08:39 Enoxaparin 60 Mg/0.6 Ml Syringe SUBCUT 60 mg BID FRANKO Administration Haloperidol 2 mg 01/27/24 08:00 01/27/24 08:12 Haloperidol 5 Mg/Ml Vial IV 2 mg Q1H PRN Administration Agitation Hydromorphone HCl 1 mg 01/27/24 08:22 01/29/24 12:28 Hydromorphone 1 Mg Inj IV 1 mg Q3H PRN Administration Pain, Moderate (4-6) Hydromorphone HCl 2 mg 01/27/24 11:09 01/27/24 11:29 Hydromorphone 2 Mg Inj IV 2 mg Q2H PRN Administration Pain, Severe (7-10) dexmedeTOMIDine in 0.9 % NaCL 400 mcg in 100 mls @ 2.903 mls/hr 01/26/24 19:30 01/29/24 11:16 Precedex IV 1.5 mcg/kg/hr TITRATE FRANKO 21.773 mls/hr Administration Protocol 0.2 MCG/KG/HR Piperacillin Sod/Tazobactam 100 mls @ 25 mls/hr 01/27/24 14:00 01/29/24 09:20 Sod 3.375 gm/ Sodium Chloride IV Infused Q8H FRANKO Infusion Dextrose/Sodium Chloride 1,000 mls @ 60 mls/hr 01/27/24 09:00 01/29/24 10:23 Dextrose 5%-0.9% Ns IV 60 mls/hr CONT FRANKO Administration Thiamine HCl 100 mg/ Sodium 101 mls @ 404 mls/hr 01/27/24 10:30 01/29/24 10:23 Chloride IV 404 mls/hr TID FRANKO Administration Folic Acid 1 mg/ Sodium 100.2 mls @ 200.4 mls/hr 01/27/24 10:45 01/29/24 08:40 Chloride IV 200.4 mls/hr DAILY FRANKO Administration Melatonin 6 mg 01/28/24 21:00 01/28/24 20:48 Melatonin 3 Mg Tablet PO Not Given BEDTIME FRANKO Multivitamins 1 tab 01/25/24 09:00 01/27/24 11:05 Multivitamin 1 Tablet PO Not Given DAILY FRANKO Nicotine 14 mg 01/25/24 12:45 01/29/24 08:41 Nicotine 14 Patch TOP Not Given DAILY FRANKO Ondansetron HCl 4 mg 01/24/24 22:11 01/26/24 18:06 Ondansetron 4 Mg/2 Ml Inj IV 4 mg Q6HR PRN Administration Nausea And Vomiting Phenobarbital 130 mg 01/29/24 10:44 01/29/24 12:26 Phenobarbital 65 Mg/Ml Vial IV 130 mg Q6HR PRN Administration Agitation Objective Ventilator Parameters: Ventilator Settings FiO2 35 Labs 01/29/24 04:57 01/29/24 04:57 Labs: Laboratory Results - last 24 hr 01/29/24 04:57 WBC 7.8 RBC 2.95 L Hgb 9.5 L Hct 28.4 L MCV 96.2 MCH 32.1 MCHC 33.4 RDW 14.1 Plt Count 148 L Sodium 145 Potassium 3.4 Chloride 121 H Carbon Dioxide 28 BUN 26 H Creatinine 0.87 Estimated GFR > 60 BUN/Creatinine Ratio 29.9 H Glucose 305 H D Calcium 7.6 L Magnesium 1.9 Exam Vital Signs (past 8 hours): - 01/29/24 05:30 01/29/24 06:00 01/29/24 06:00 Temperature Pulse Rate 76 71 Respiratory Rate 13 16 Blood Pressure 132/64 Pulse Oximetry 94 96 Oxygen Delivery Method Oxygen Flow Rate 40 Fraction of Inspired Oxygen 01/29/24 06:18 01/29/24 06:30 01/29/24 07:00 Temperature Pulse Rate 79 86 Respiratory Rate 27 H 35 H Blood Pressure Pulse Oximetry 93 95 89 L Oxygen Delivery Method High Flow Nasal Cannula Oxygen Flow Rate 40 Fraction of Inspired Oxygen 35 01/29/24 07:00 01/29/24 07:30 01/29/24 08:00 Temperature Pulse Rate 81 Respiratory Rate 27 H Blood Pressure 120/62 Pulse Oximetry 93 Oxygen Delivery Method Heated High Flow Oxygen Flow Rate Fraction of Inspired Oxygen 01/29/24 08:00 01/29/24 08:00 01/29/24 08:24 Temperature Pulse Rate 75 77 Respiratory Rate 12 12 Blood Pressure 139/65 139/65 Pulse Oximetry 95 95 Oxygen Delivery Method Oxygen Flow Rate Fraction of Inspired Oxygen 01/29/24 08:30 01/29/24 09:00 01/29/24 09:00 Temperature Pulse Rate 78 77 Respiratory Rate 14 38 H Blood Pressure 118/55 L Pulse Oximetry 93 96 Oxygen Delivery Method Oxygen Flow Rate Fraction of Inspired Oxygen 01/29/24 09:15 01/29/24 09:30 01/29/24 10:00 Temperature 98.7 F Pulse Rate 73 69 Respiratory Rate 27 H 25 H Blood Pressure Pulse Oximetry 96 96 Oxygen Delivery Method Oxygen Flow Rate Fraction of Inspired Oxygen 01/29/24 10:00 01/29/24 10:30 01/29/24 11:00 Temperature Pulse Rate 73 72 Respiratory Rate 18 14 Blood Pressure 129/66 Pulse Oximetry 96 96 Oxygen Delivery Method Oxygen Flow Rate Fraction of Inspired Oxygen 01/29/24 11:00 01/29/24 11:01 01/29/24 11:30 Temperature Pulse Rate 79 77 Respiratory Rate 18 39 H Blood Pressure 145/65 H 129/66 Pulse Oximetry 96 94 Oxygen Delivery Method Oxygen Flow Rate Fraction of Inspired Oxygen 01/29/24 12:00 01/29/24 12:00 01/29/24 12:00 Temperature Pulse Rate 69 Respiratory Rate 30 H Blood Pressure 126/73 Pulse Oximetry 94 Oxygen Delivery Method Heated High Flow Oxygen Flow Rate Fraction of Inspired Oxygen 01/29/24 12:00 01/29/24 12:30 01/29/24 13:00 Temperature 98.6 F Pulse Rate 80 75 Respiratory Rate 29 H 33 H Blood Pressure Pulse Oximetry 94 94 Oxygen Delivery Method Oxygen Flow Rate Fraction of Inspired Oxygen 01/29/24 13:00 Temperature Pulse Rate Respiratory Rate Blood Pressure 120/64 Pulse Oximetry Oxygen Delivery Method Oxygen Flow Rate Fraction of Inspired Oxygen Fraction of Inspired Oxygen 35 SaO2/FiO2 Ratio 265 Oxygen Delivery Method Heated High Flow Oxygen Flow Rate 40 Narrative Exam Narrative: ill appearing on HFNC symmetric chest rise rate controlled Quality TeleICU VTE Deep Vein Thrombosis/Pulmonary Embolism Present on Admission: No Assessment & Plan Assessment & Plan narrative: NEURO: # 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, folic acid, and MTV -- Start precedex gtt -- RASS goal -1 to 0 -- phenobarb prn -- I added zyprexa as i think there is a component of ICU delirium -- melatnoni qhs RESP: # Acute hypoxemia respiratory failure -- Secondary to aspiration vs pulmonary edema vs PE -- On eliquis -- Monitor closely for need for endotracheal intubation -- HOB elevation -- Aspiration precaution -- Switch ceftriaxone to zosyn -- Goal SpO2 > 88% -- cont HFNC -- CT chest CVS: # A fib w/ RVR -- Secondary to hypoxemia and holiday heart syndrome -- Ordered digoxin 250 mcg IV once given soft BP -- High lytes goal -- On eliquis -- Goal HR < 110 # CHF -- Ordered lasix 40 mg IV once -- Strict I/O -- Place valdivia -- Low Na diet : -- High lytes goal -- Monitor UOP -- Ordered lasix 40 mg IV once ID: # Aspiration PNA -- Check blood cx -- Check resp cx -- Start zosyn -- Follow up cx ENDO: -- Goal BS < 180 total cct 35 min D/w bedside RN. Time Spent With Patient Time with patient: 30 to 49 minutes with 50% spent counseling/coordinating care
[2024-01-29] MEDS: OLANZapine 10 MG VIAL 5 MG IM (13:27)
--- NOTE | 2024-01-29 15:01 | PM.PN.1 ---
Subjective Subjective Interval history: Remains on precedex. When more alert pulls at oxygen, attempting to keep him a bit on the somnolent side while treating his respiratory failure. Exam Vital Signs (past 8 hours): - 01/29/24 07:30 01/29/24 08:00 01/29/24 08:00 Temperature Pulse Rate 81 75 Respiratory Rate 27 H 12 Blood Pressure Pulse Oximetry 93 95 Oxygen Delivery Method Heated High Flow 01/29/24 08:00 01/29/24 08:24 01/29/24 08:30 Temperature Pulse Rate 77 78 Respiratory Rate 12 14 Blood Pressure 139/65 139/65 Pulse Oximetry 95 93 Oxygen Delivery Method 01/29/24 09:00 01/29/24 09:00 01/29/24 09:15 Temperature 98.7 F Pulse Rate 77 Respiratory Rate 38 H Blood Pressure 118/55 L Pulse Oximetry 96 Oxygen Delivery Method 01/29/24 09:30 01/29/24 10:00 01/29/24 10:00 Temperature Pulse Rate 73 69 Respiratory Rate 27 H 25 H Blood Pressure 129/66 Pulse Oximetry 96 96 Oxygen Delivery Method 01/29/24 10:30 01/29/24 11:00 01/29/24 11:00 Temperature Pulse Rate 73 72 Respiratory Rate 18 14 Blood Pressure 145/65 H Pulse Oximetry 96 96 Oxygen Delivery Method 01/29/24 11:01 01/29/24 11:30 01/29/24 12:00 Temperature Pulse Rate 79 77 Respiratory Rate 18 39 H Blood Pressure 129/66 Pulse Oximetry 96 94 Oxygen Delivery Method Heated High Flow 01/29/24 12:00 01/29/24 12:00 01/29/24 12:00 Temperature 98.6 F Pulse Rate 69 Respiratory Rate 30 H Blood Pressure 126/73 Pulse Oximetry 94 Oxygen Delivery Method 01/29/24 12:30 01/29/24 13:00 01/29/24 13:00 Temperature Pulse Rate 80 75 Respiratory Rate 29 H 33 H Blood Pressure 120/64 Pulse Oximetry 94 94 Oxygen Delivery Method 01/29/24 13:30 01/29/24 14:00 01/29/24 14:00 Temperature Pulse Rate 77 75 Respiratory Rate 27 H 18 Blood Pressure 118/79 Pulse Oximetry 95 95 Oxygen Delivery Method 01/29/24 14:56 Temperature Pulse Rate 70 Respiratory Rate Blood Pressure 118/79 Pulse Oximetry 95 Oxygen Delivery Method Fraction of Inspired Oxygen 35 SaO2/FiO2 Ratio 265 Oxygen Delivery Method Heated High Flow Oxygen Flow Rate 40 Narrative Exam Narrative: Gen: Thin, elderly male, L arm no longer in sling, no acute distress. Somnolent on precedex. CV: RRR, no m/r/g Pulm: CTA b/l Abd: S NT ND Ext: thin, no edema. Objective Labs 01/29/24 04:57 01/29/24 04:57 Labs: Laboratory Results - last 24 hr 01/29/24 04:57 WBC 7.8 RBC 2.95 L Hgb 9.5 L Hct 28.4 L MCV 96.2 MCH 32.1 MCHC 33.4 RDW 14.1 Plt Count 148 L Sodium 145 Potassium 3.4 Chloride 121 H Carbon Dioxide 28 BUN 26 H Creatinine 0.87 Estimated GFR > 60 BUN/Creatinine Ratio 29.9 H Glucose 305 H D Calcium 7.6 L Magnesium 1.9 PFSH Medical History Gout COPD (chronic obstructive pulmonary disease) Peripheral neuropathy Retinal detachment Peripheral vascular disease Essential hypertension (11/01/17) Pure hypercholesterolemia (04/24/16) Systolic congestive heart failure (04/24/16) Atrial fibrillation (04/24/16) Arterial embolism of left leg Surgical History Anesthesia History of surgery History of eye surgery History of cataract removal with insertion of prosthetic lens Family History Father History of heart disease Sister Cancer Social History household members: none Smoking Status: Former smoker alcohol intake: current Assessment & Plan Assessment & Plan narrative: Markos Savage is an 78yo male with history of alcohol use, atrial fibrillation on Eliquis, HTN, COPD, PVD, CHF and tobacco use who presented with a ground level fall and continued inability to ambulate since the fall. Acute hypoxic respiratory failure -the patient appears to have RLL aspiration pneumonia with acute deterioration on 01/26/2024 and is being treated for that. -the patient does not appear to be in significant CHF at this time, but has been off of lasix so will resume diuretics with caution due to recent low BP. -the patient has severe agitation from alcohol withdrawal complicating treatment of the hypoxic respiratory failure. -the patient is being followed by the critical care adult daycare coordinator by tele video. -continue high-flow nasal cannula oxygen, IV fluid support while NPO, Levophed as needed, Precedex for alcohol withdrawal agitation, Zosyn. -echocardiogram without evidence of significant worsened cardiomyopathy. Ejection fraction is 45-55%. -Start TPN today 01/28. # Ambulatory Dysfunction: # Ground Level Fall: # Lower Extremity Weakness with history of T6 Compression Fracture: His fall was likely secondary to alcohol intoxication though does have bilateral weakness with T6 compression fracture. He could not tolerate the planned MR of T spine to make sure no spinal pathology and the Shoulder MR plan was also deferred. - Treat alcohol and hypomagnesemia as noted below. - PT/OT consulted and currently on hold - Given his lower extremity weakness and history of T6 compression fracture, tried to do a thoracic spine MRI to rule out acute issue, though he does not have other clinical signs of cord compression. -defer left shoulder MRI for now # Severe alcohol withdrawal with delirium Unclear how much he truly drinks in a given day/week, he only endorses 3-4 norbert's hard lemonade a day today. Denies prior seizure or shaking when not drinking. - Now in ICU - Precedex drip, Phenobarbital increased dose and prn and Haldol. Does not respond well to Lorazepam. Unable to do PO medications currently due to aspiration risk. - Continue IV Thiamine and Folate. - possible sepsis contributing as well. # Hypomagnesemia: - Received replacement in the ED. - Follow # Left Humeral Head Fracture: Mildly displaced per x-ray. - Continue sling. Non-operative with outpatient management for now, discussed with orthopedics whom recommended MRI for this patient for further evaluation for possible rotator cuff injury. - PRN Hydrocodone and IV Dilaudid while sedated. -shoulder MRI deferred for now as noted above. # Atrial Fibrillation, Persistent: - unable to tolerate PO, has not been an issue with regards to management yet. - on lovenox now given no PO intake for anticoagulation. # Essential Hypertension: Controlled. - Continue home metoprolol XL and lisinopril. # Chronic HFrEF: Last LVEF was 30% via TTE in 2022. Now with EF of 45-55% - Continue home metoprolol XL, lisinopril, atorvastatin. Will resume some lasix to try and diurese. # Sepsis with septic shock with MAGALYS, acute metabolic encephalopathy, elevated bilirubin Right Sided Aspiration Pneumonia - New infiltrates on CXR 01/26/24 - Ceftriaxone 1 gm Q24h, changed to Zosyn. Leukocytosis improving. - has been on intermittent levophed for soft BP. wean as tolerated with MAP >65. #tobacco use - nicotine patch [facility] when he is ready. Likely many more days. #malnutrition - dietary consultation ordered, suspect severe chronic protein calorie malnutrition given his muscle wasting and weakness. Nutrition diagnosis: Severe Chronic Protein Calorie Malnutrition r/t to decreased energy intake and increased protein needs with CHF as evidenced by severe muscle wasting (temporalis, interosseous) and severe subcutaneous fat loss (buccal and orbital fat pads), <75% of estimated energy requirements for >1 month, BMI 20.6 (underweight for age), and substance abuse. Will continue with dietary treatment recommendations, consider TPN. Code Status: Full Code, surrogate is patient's daughter. DVT: on Eliquis normally, now on Lovenox BID 1mg / kg Dispo: SNF when improved, but remains ICU status on precedex infusion. I spent 35 minutes providing critical care management this patient. This excludes time spent in performing separately billed procedures. Quality VTE Deep Vein Thrombosis/Pulmonary Embolism Present on Admission: No
[2024-01-29] MEDS: FUROSEMIDE 40 MG/4 ML VIAL 20 MG IV (15:29)
[2024-01-29] MEDS: AA 5 %/CALCIUM/LYTES/DEXT 20 % 1,000 ML with MULTIVITAMIN 10 ML, TRACE ELEMENTS 1 ML 20 ML IV (18:29)
--- NOTE | 2024-01-29 20:16 | PM.ICURNDS ---
- Date Patient Seen: 01/29/24 Time Patient Seen: 20:16 :: This patient was seen via real time interactive two-way audiovisual telecommunication. Note: Remains on HFNC FiO2 40% and precedex gtt. On schedule zyprexa. Not able to tolerate oral intake. On phenobarb per alcohol withdrawal protocol. Cont weaning down precedex gtt. D/w bedside RN.
[2024-01-30] VITALS (94 sets, daily range): BP systolic 65–172; BP diastolic 32–84; PULSE 39–133; RESP 0–40; TEMP 36.1–37.7; O2SAT 89–100
--- NOTE | 2024-01-30 00:25 | DI.RAD.S_ITS ---
PROCEDURE: XR CHEST 1V INDICATIONS: shortness of breath TECHNIQUE: One view of the chest was acquired. COMPARISON: [facility], CR, XR CHEST 1V, 01/29/2024, 9:42. FINDINGS: Surgical changes and devices: Right PICC with distal tip projecting over the lower SVC. Lungs and pleura: No pneumothorax. Similar chronic emphysematous changes. Persistent left moderate and small right pleural effusion. Similar hazy opacities at the right lung base. Mediastinum: Mediastinal contours appear normal. Heart size is normal. Aortic arch is calcified indicating atherosclerosis. Bones and chest wall: No suspicious bony lesions. Overlying soft tissues appear unremarkable. IMPRESSION: Compared to prior radiograph at 9:42 a.m., bilateral pleural effusions and right lower lung hazy opacity persist. Approved by: Thao Willams M.D.,Ph.D. on 01/30/2024 at 1:58
[2024-01-30 00:36] LABS: pH ABG 7.23 (7.35-7.45)
[2024-01-30 00:37] LABS: HCO3 ABG 31 mmol/L (23-27); PCO2 ABG 73.8 mmHg (35-45); PO2 ABG 58 mmHg (80-100); TCO2 ABG 33 mmol/L (23-27)
[2024-01-30 00:38] LABS: Allen Test for ABG Passed? Yes, Passed; Blood Gas Collection Site Right Radial; Fractionated Inspired Oxygen 30; Oxygen Saturation ABG 83 % (95-100)
--- NOTE | 2024-01-30 00:53 | DI.RAD.S_ITS ---
PROCEDURE: XR KUB INDICATIONS: OGT placement TECHNIQUE: One view of the abdomen acquired. COMPARISON: None. FINDINGS: Surgical changes and devices: Enteric tube courses below the diaphragm with distal tip projecting over the gastric body Bowel: Bowel gas pattern is nonobstructive. Soft tissues: No suspicious abdominal calcifications. Visualized solid organ contours appear normal in size. Bones: No suspicious bony lesions. IMPRESSION: Appropriate position of enteric tube Approved by: Thao Willams M.D.,Ph.D. on 01/30/2024 at 2:01
--- NOTE | 2024-01-30 00:57 | PM.EICU.INT ---
Teleintensivist Intervention Date/Time Was camera activated?: Yes Date Patient Seen: 01/30/24 Time Patient Seen: 00:30 Issue(s) Addressed Issue(s): Resp. Distress/Ventilator management Other:: Called for poor air movement and recurrent AF. Pt saturating ~ 88% on HFNC 35 L/min 40%. Ordered pCXR and ABG. ABG -> 7.23/74/58/31/83%. Precedex had been stopped. Not a NIPPV candidate due to lethargy. Intervention(s) :: 1) Intubate 2) Propofol/Precedex/PRN hydromorphone analgosedation 3) Discontinued phenobarbital due to amiodarone interaction 4) Amiodarone gtt 5) Hemodynamic support w/ PRN phenylephrine 6) Check sputum culture; continue Zosyn in interim 7) Insert OGT 8) Started Protonix stress ulcer prophylaxis 9) Consider goals of care discussion Plan discussed with: Nurse
[2024-01-30] MEDS: AMIODARONE 150 MG/100 ML PIGGYBACK 600 MG IV (01:14)
[2024-01-30] MEDS: AMIODARONE 360 MG/200 ML PIGGYBACK 33.33 MG IV (01:26)
--- NOTE | 2024-01-30 01:30 | DI.RAD.S_ITS ---
PROCEDURE: XR CHEST 1V INDICATIONS: intubation TECHNIQUE: One view of the chest was acquired. COMPARISON: [facility], CR, XR CHEST 1V, 01/30/2024, 0:27. FINDINGS: Surgical changes and devices: Endotracheal tube terminates 4.9 cm above the cameron. Enteric tube courses below the diaphragm with distal tip not visualized. Right PICC distal tip projects over the lower SVC. Lungs and pleura: No pneumothorax. Compared to prior radiograph at 12:27 a.m., no significant change in bilateral pleural effusions and persistent lower lung hazy opacities. Mediastinum: Mediastinal contours appear normal. Heart size is normal. Bones and chest wall: No suspicious bony lesions. Overlying soft tissues appear unremarkable. IMPRESSION: Appropriate position of endotracheal and enteric tubes. No other significant interval change since prior radiograph. Approved by: Thao Willams M.D.,Ph.D. on 01/30/2024 at 2:00
[2024-01-30] MEDS: PHENYLEPHRINE 20,000 MCG in DEXTROSE 5% IN WATER 250 ML 75 MCG IV (01:36)
[2024-01-30] MEDS: propofoL 1,000 MG/100 ML VIAL 1.742 MG IV (01:56)
[2024-01-30] MEDS: ALBUTEROL/IPRATROPIUM 3 ML AMPUL INH (02:57)
[2024-01-30 03:29] LABS: PCO2 ABG 36.1 mmHg (35-45); PO2 ABG 54 mmHg (80-100); pH ABG 7.44 (7.35-7.45)
[2024-01-30 03:30] LABS: Allen Test for ABG Passed? Yes, Passed; Blood Gas Collection Site Right Radial; Fractionated Inspired Oxygen 60; HCO3 ABG 25 mmol/L (23-27); Oxygen Saturation ABG 89 % (95-100); TCO2 ABG 26 mmol/L (23-27)
--- NOTE | 2024-01-30 03:54 | DI.CT.S_ITS ---
PROCEDURE: CT HEAD/BRAIN WO CON INDICATIONS: Pupillary change TECHNIQUE: Noncontrast 4.5 mm thick angled axial sections acquired from the foramen magnum to the vertex, with coronal and sagittal reformats. For radiation dose reduction, the following was used: automated exposure control, adjustment of mA and/or kV according to patient size. COMPARISON: [facility], CT, CT HEAD/BRAIN WO CON, 01/24/2024, 17:10. FINDINGS: Image quality: Diagnostic. CSF spaces: Basal cisterns are patent. No extra-axial fluid collections. The ventricles are symmetric in size and shape. Brain: No intracranial bleeds or masses. There is cerebral volume loss for age, with resultant ventricular and sulcal prominence. There are moderate, stable periventricular and deep white matter chronic small vessel ischemic changes. There is intracranial internal carotid artery atherosclerosis. Skull and face: Calvarium and visualized facial bones appear intact, without suspicious lesions. Sinuses: Visualized sinuses and mastoids are clear. IMPRESSION: No evidence acute intracranial process. Comment: Final report is concordant with preliminary interpretation provided by [facility]. Dictated by: Nate Medrano M.D. on 01/30/2024 at 7:16 Approved by: Nate Medrano M.D. on 01/30/2024 at 7:17
[2024-01-30 05:35] LABS: Blood Urea Nitrogen 20 mg/dL (9-20); Calcium 7.8 mg/dL (8.4-10.2); Carbon Dioxide 27 mmol/L (22-32); Chloride 114 mmol/L (98-107); Estimated Glomerular Filt Rate > 60 mL/min (>60); Glucose 278 mg/dL (80-110); HEMOLYSIS < 15 (0-50); Sodium 145 mmol/L (137-145)
[2024-01-30] MEDS: PIPERACILLIN/TAZO 3.375 GM in SODIUM CHLORIDE 0.9% 100 ML IV ×3 (06:22→21:42)
[2024-01-30] MEDS: CHLORHEXIDINE GLUCONATE 15 ML CUP PO ×4 (06:22→23:17)
--- NOTE | 2024-01-30 06:52 | PC.NURSE ---
Patient restless at the beginning of the shift, PRN Phenobarbital given responded well. Patient localized and attemped to take off oxygen mask. Vital signs stable, sedated to RASS -2 on Precedex drip. Around 0000 RN to bedside for monitor reading Afib RVR sustaining 140s. Found with increased work of breathing, using accessory muscles, and RR around 35. Patient was less responsive only withdrawing from painful stimuli. Dr. Meadows notified, STAT ABG ordered and STAT chest XRAY. ABG PH-7.23, PCO2=73.8, PO2=58, HCO3=31, O2=83%. Dr. Meadows ordered to intubate. EQUAL OPPORTUNITY COUNSELOR called in to bedside. While waiting for EQUAL OPPORTUNITY COUNSELOR, Amio bolus administered followed by Amio gtt running per order. 0124-50mcg Propofol administered followed by 40mg Alverto. 0127- 7.5 ETT placed 23 gums, positive breath sounds, OGT placed, both confirmed with XRAY. 0132- 200mcg Carroll administered by EQUAL OPPORTUNITY COUNSELOR 0136 100mcg administered by PONCE Carroll gtt started to maintain BP goal, stopped shortly after pt responded well. Patient HR in the 40s paused amio gtt per MD order and restarted later for a HR maintained 140s again. 0345-RN notified MD of unequal pupils, STAT CT scan obtained. Daughters notified via phone. Patient soft wrist restraints to BUE to protect artificial airway.
[2024-01-30 07:51] LABS: Magnesium 1.7 mg/dL (1.6-2.3)
[2024-01-30] MEDS: dexmedeTOMIDine in 0.9 % NaCL 400 MCG/100 ML PLAST..BAG 14.515 MCG IV ×2 (08:10→23:18)
[2024-01-30] MEDS: THIAMINE 100 MG in SODIUM CHLORIDE 0.9% 100 ML 404 MG IV ×2 (08:11→15:15)
--- NOTE | 2024-01-30 08:45 | PM.PROC.1 ---
Procedures Date/Time Date of procedure: 01/30/24 Time of procedure: Intubation Sedative: other (Propofol ) Mg given: 50 Paralytic: rocuronium Mg given: 40 Laryngoscope: other (Glidescope) ET tube size: 7.5 Tube secured depth (cm): 23 Tube secured location: lips Tube placement confirmation: visualized tube passing through cords, equal breath sounds bilaterally and confirmation by capnometry Patient tolerated procedure: well and no complications Intubation complications: hypotension Additional comments: Documentation done hours after procedure. Intubation was on 01/30/24 at 0124 . 2 doses of phenylephrine given after intubation. 200mcg at 0132 and 100mcg at 0136.
[2024-01-30] MEDS: FUROSEMIDE 40 MG/4 ML VIAL 20 MG IV (09:15)
[2024-01-30] MEDS: ENOXAPARIN 60 MG/0.6 ML SYRINGE SUBCUT (09:15)
[2024-01-30] MEDS: PANTOPRAZOLE 40 MG VIAL IV (09:15)
[2024-01-30] MEDS: AMIODARONE 360 MG/200 ML PIGGYBACK 16.7 MG IV (09:41)
[2024-01-30] MEDS: FOLIC ACID 1 MG in SODIUM CHLORIDE 0.9% 100 ML 200.4 MG IV (09:41)
--- NOTE | 2024-01-30 09:41 | DI.CT.S_ITS ---
PROCEDURE: CT CHEST ABD PEL WO CON INDICATIONS: worsening pna despite abx TECHNIQUE: After the administration of oral contrast, 5 mm thick sections acquired from the lung apices to the symphysis pubis. 5 mm thick coronal and sagittal reformats acquired, with additional 7 mm coronal MIP reformats through the lungs. For radiation dose reduction, the following was used: automated exposure control, adjustment of mA and/or kV according to patient size. COMPARISON: [facility], CR, XR CHEST 1V, 01/30/2024, 0:56. [facility], CR, XR CHEST 1V, 01/26/2024, 11:09. [facility], CT, CT ANGIO CHEST PE PROTOCOL, 10/30/2022, 20:03. FINDINGS: Image quality: Diagnostic. CHEST: Lower Neck: No enlarged lymph nodes. Thyroid: No thyroid nodules which require sonographic follow up, per consensus guidelines. Axillae: No enlarged lymph nodes. Chest Wall: Unremarkable. Bones: Unremarkable. Lungs and Pleura: Moderate right pleural effusion and mild to moderate left pleural effusion with compressive bibasilar atelectasis. There is also focal right basilar consolidation. There is also focal pneumonia in the posterior portion of the left upper lobe. Moderate emphysematous change. Heart: Heart size is normal. Minimal pericardial effusion. Severe coronary artery calcifications. Mild cardiomegaly with biatrial enlargement. Thoracic Vessels: The aorta and pulmonary arteries demonstrate normal size. Mediastinum and Gia: No enlarged lymph nodes. Esophagus: No wall thickening. No hiatal hernia. ABDOMEN: Liver: No solid mass. Gallbladder: Tiny calcified gallstones versus gallbladder gravel. Mild gallbladder wall thickening. Biliary ducts: No biliary dilation. Pancreas: No ductal dilation. Spleen: Size is within normal limits. Adrenal Glands: No adrenal nodules. Kidneys and Ureters: No hydronephrosis. No solid mass. No complex renal cystic lesion which requires follow up. Stomach and Bowel: Normal colonic caliber, without significant wall thickening. Moderate diverticulosis without evidence of diverticulitis. Peritoneum: No abnormal intraperitoneal fluid. No free air. Ventral Wall: No hernia. There are tiny flecks of gas present in the subcutaneous anterior fat. For instance, on image 83 of series 2 there is a small collection just anterior to the anterior wall. Also, on image 88/2 there is a small amount within the wall anteriorly to the right as well as in the subcutaneous tissues. Abdominal Nodes: No retroperitoneal or mesenteric adenopathy by size criteria. Vessels: Aorta and inferior vena cava are normal in size. PELVIS: Pelvic Organs: Unremarkable. Bladder: A Dodd catheter decompresses the bladder. The bladder has air within it and diffuse thickening of the wall. Pelvic Nodes: No enlarged lymph nodes. Miscellaneous: No inguinal hernias are seen. Bones: No aggressive osseous abnormality. Interval development of severe compressions of T6 and T9. These may have a degree of subacuity. IMPRESSION: 1. There is underlying moderate emphysematous change. 2. There is a moderate right pleural effusion and a [id number] left pleural effusion with bibasilar compressive atelectasis. 3. Additionally, there is focal right basilar pneumonia, and focal pneumonia posteriorly in the left upper lobe. 4. Severe coronary artery calcifications. 5. Mild cardiomegaly with biatrial enlargement. 6. Development of 2 separate severe compression fractures in the thoracic spine, both which may have a degree of subacuity. 7. There are tiny flecks of gas present in the subcutaneous anterior abdominal fat. On questioning the patient's ICU nurse, there is no record of a recent laparoscopic surgery. The origin of this subcutaneous air is unknown, and last the patient has in fact had a recent surgery. 8. Gallbladder tiny stones or gravel, mild gallbladder wall thickening. 8. Diffuse bladder wall thickening. Comment: If suspect acute cholecystitis, consider right upper quadrant ultrasound for further evaluation. Dictated by: Nate Medrano M.D. on 01/30/2024 at 15:16 Approved by: Nate Medrano M.D. on 01/30/2024 at 15:46
[2024-01-30] MEDS: POTASSIUM CHLORIDE IN WATER 10 MEQ/100 ML PIGGYBACK 100 MEQ IV ×4 (09:46→12:19)
[2024-01-30] MEDS: FLUCONAZOLE 400 MG/200 ML PIGGYBACK 100 MG IV (10:18)
--- NOTE | 2024-01-30 10:29 | CM.DPNOTE ---
Addendum entered by JOSE RAMON Christiansen 01/30/24 15:19: [employer] met with dtr Aruna in room. updated her on [facility] acceptance pending pt is off [facility]WA protocol and pt agrees to not smoke/acknowledges cannot use alcohol while there. Aruna worried about pt's agreeability. Reviewed options if pt wants to go home and dtr does not believe pt is safe. [employer] gave dtr copy of [employer] business analytics director Fernando's contact information. Dtr Aruna asked if [facility] could reassess once pt is awake due to preference for closer to home. [employer] agreed to ask but dtr understood there were no guarantees. Dtr Aruna reports she will bring in copy of POA ppwk tomorrow for our records. SL Original Note: DCP note [employer] reviewed EMR. Per chart review/hospitalist in morning rounds, pt was intubated last night. Pt will stop TPN and start tube feeds. Unclear when pt will be extubated at this time. [employer] updated Milagro at [facility] [place] via phone. Will continue to monitor. Plan: CM team will follow closely. CM team will update dtrs with DCP updates as able. PASRR needed, complete when pt is alert. JOSE RAMON Christiansen
[2024-01-30] MEDS: POTASSIUM PHOSPHATE 15 MMOL in SODIUM CHLORIDE 0.9% 250 ML 63.75 MMOL IV (11:50)
[2024-01-30] MEDS: propofoL 1,000 MG/100 ML VIAL 5.225 MG IV ×2 (12:36→13:44)
--- NOTE | 2024-01-30 13:16 | PM.PN.EICU ---
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 he is pending a CT chest. abx were escalated This am Current Medications Current Medications Medications: Home Medications lisinopril 10 mg tablet 5 mg (1/2 x 10 mg) PO BID #180 tabs 11/01/22 [Rx Confirmed 01/25/24] spironolactone 25 mg tablet 25 mg PO DAILY #90 tabs 02/06/23 [Rx Confirmed 01/25/24] metoprolol succinate 50 mg tablet,extended release 24 hr 50 mg PO BID #180 tabs 08/10/23 [Rx Confirmed 01/25/24] apixaban 2.5 mg tablet (Eliquis) 2.5 mg PO BID #60 tabs 08/27/23 [Rx Confirmed 01/25/24] atorvastatin 80 mg tablet 80 mg PO BEDTIME #30 tabs 10/24/23 [Rx Confirmed 01/25/24] furosemide 20 mg tablet 20 mg PO BID #180 tabs 11/12/23 [Rx Confirmed 01/25/24] Visit Medications (administered) Generic Name Dose Route Start Last Admin Trade Name Freq PRN Reason Stop Dose Admin Albuterol/Ipratropium 3 ml 01/30/24 02:01 01/30/24 02:57 Albuterol/Ipratropium 3 Ml Ampul INH 3 ml RTQ4HR PRN Administration Shortness Of Breath Chlorhexidine Gluconate 15 ml 01/30/24 06:00 01/30/24 12:07 Chlorhexidine Gluconate 15 Ml Cup PO 15 ml Q6HR FRANKO Administration Enoxaparin Sodium 60 mg 01/27/24 10:30 01/30/24 09:15 Enoxaparin 60 Mg/0.6 Ml Syringe SUBCUT 60 mg BID FRANKO Administration Furosemide 20 mg 01/30/24 09:00 01/30/24 09:15 Furosemide 40 Mg/4 Ml Vial IV 20 mg DAILY FRANKO Administration dexmedeTOMIDine in 0.9 % NaCL 400 mcg in 100 mls @ 2.903 mls/hr 01/26/24 19:30 01/30/24 11:41 Precedex IV 0.8 mcg/kg/hr TITRATE FRANKO 11.612 mls/hr Titration Protocol 0.2 MCG/KG/HR Thiamine HCl 100 mg/ Sodium 101 mls @ 404 mls/hr 01/27/24 10:30 01/30/24 08:26 Chloride IV Infused TID FRANKO Infusion Folic Acid 1 mg/ Sodium 100.2 mls @ 200.4 mls/hr 01/27/24 10:45 01/30/24 10:11 Chloride IV Infused DAILY FRANKO Infusion Multivitamins 10 ml/ Chromium/ 1,011 mls @ 20 mls/hr 01/29/24 18:00 01/29/24 18:29 Copper/Manganese/Seleni/Zn 1 IV 01/30/24 17:59 20 mls/hr ml/ Amino Acids/Electrolytes 1800 FRANKO Administration Propofol 1,000 mg in 100 mls @ 1.742 mls/hr 01/30/24 00:45 01/30/24 12:36 Propofol IV 15 mcg/kg/min TITRATE FRANKO 5.225 mls/hr Administration Protocol 5 MCG/KG/MIN Phenylephrine HCl 20,000 mcg/ 250 mls @ 75 mls/hr 01/30/24 00:47 01/30/24 01:49 Dextrose IV 0 mcg/min TITRATE FRANKO 0 mls/hr Titration Protocol 100 MCG/MIN Amiodarone HCl/Dextrose 360 mg in 200 mls @ 16.7 mls/hr 01/30/24 09:30 01/30/24 09:41 Nexterone IV 01/30/24 21:29 16.7 mls/hr CONT FRANKO 16.7 mls/hr Administration Protocol POTASSIUM CHLORIDE IN WATER 10 meq in 100 mls @ 100 mls/hr 01/30/24 10:00 01/30/24 12:19 Potassium Cl 10 Meq/100 Ml Chelly IV 01/30/24 13:59 100 mls/hr Q1H FRANKO Administration Potassium Phosphate 15 mmol/ 255 mls @ 63.75 mls/hr 01/30/24 11:30 01/30/24 11:50 Sodium Chloride IV 01/30/24 15:29 63.75 mls/hr NOW ONE Administration Nicotine 14 mg 01/25/24 12:45 01/30/24 08:11 Nicotine 14 Patch TOP Not Given DAILY FRANKO Ondansetron HCl 4 mg 01/24/24 22:11 01/26/24 18:06 Ondansetron 4 Mg/2 Ml Inj IV 4 mg Q6HR PRN Administration Nausea And Vomiting Pantoprazole Sodium 40 mg 01/30/24 09:00 01/30/24 09:15 Pantoprazole 40 Mg Vial IV 40 mg DAILY FRANKO Administration Objective Ventilator Parameters: Ventilator Settings FiO2 40 CPAP Pressure Amount 5 RT Vent Frequency 16 Ventilator Tidal Volume 450 Exhaled Positive End Expiratory 5 Pressure Inspiratory Phase Time 0.9 I:E Ratio 1:2.7 Patient Position HOB >= 30 degrees Labs 01/29/24 04:57 01/30/24 05:05 Labs: Laboratory Results - last 24 hr 01/30/24 01/30/24 01/30/24 00:22 02:28 05:05 ABG Sample Site Right radial Right radial ABG pH 7.23 L* 7.44 ABG pCO2 73.8 H* 36.1 ABG pO2 58 L 54 L ABG HCO3 31 H 25 ABG Total CO2 33 H 26 ABG O2 Saturation 83 L* 89 L ABG Base Excess 4.0 H 1.0 FiO2 30 60 Sodium 145 Potassium 3.0 L Chloride 114 H Carbon Dioxide 27 BUN 20 Creatinine 0.91 Estimated GFR > 60 BUN/Creatinine Ratio 22.0 Glucose 278 H Calcium 7.8 L Phosphorus 2.0 L D Magnesium 1.7 Exam Vital Signs (past 8 hours): - 01/30/24 05:30 01/30/24 05:30 01/30/24 06:00 Temperature Pulse Rate 107 H 96 H Respiratory Rate 16 16 Blood Pressure 119/70 Pulse Oximetry 98 98 Oxygen Delivery Method 01/30/24 06:00 01/30/24 06:30 01/30/24 06:30 Temperature Pulse Rate 96 H Respiratory Rate 16 Blood Pressure 126/61 118/56 L Pulse Oximetry 98 Oxygen Delivery Method 01/30/24 07:00 01/30/24 07:00 01/30/24 07:30 Temperature Pulse Rate 93 H 97 H Respiratory Rate 16 16 Blood Pressure 123/56 L Pulse Oximetry 98 98 Oxygen Delivery Method 01/30/24 07:30 01/30/24 08:00 01/30/24 08:00 Temperature Pulse Rate 94 H Respiratory Rate 16 Blood Pressure 115/55 L 111/53 L Pulse Oximetry 97 Oxygen Delivery Method 01/30/24 08:00 01/30/24 08:08 01/30/24 08:30 Temperature 99.9 F H Pulse Rate 90 Respiratory Rate 16 Blood Pressure Pulse Oximetry 98 Oxygen Delivery Method Mechanical Ventilation 01/30/24 08:30 01/30/24 09:00 01/30/24 09:00 Temperature Pulse Rate 74 Respiratory Rate 16 Blood Pressure 100/49 L 100/55 L Pulse Oximetry 99 Oxygen Delivery Method 01/30/24 09:30 01/30/24 09:30 01/30/24 10:00 Temperature Pulse Rate 69 65 Respiratory Rate 16 16 Blood Pressure 103/53 L Pulse Oximetry 99 99 Oxygen Delivery Method 01/30/24 10:00 01/30/24 10:30 01/30/24 10:30 Temperature Pulse Rate 67 Respiratory Rate 16 Blood Pressure 97/55 L 99/52 L Pulse Oximetry 98 Oxygen Delivery Method 01/30/24 11:00 01/30/24 11:00 01/30/24 11:30 Temperature Pulse Rate 69 63 Respiratory Rate 16 16 Blood Pressure 102/57 L Pulse Oximetry 99 99 Oxygen Delivery Method 01/30/24 11:30 01/30/24 12:00 01/30/24 12:00 Temperature Pulse Rate 61 Respiratory Rate 16 Blood Pressure 108/53 L Pulse Oximetry 100 Oxygen Delivery Method Mechanical Ventilation Fraction of Inspired Oxygen 60 SaO2/FiO2 Ratio 265 Oxygen Delivery Method Mechanical Ventilation Oxygen Flow Rate 40 Narrative Exam Narrative: synchronous with vent intubated/sedated rate controlled Quality TeleICU VTE Deep Vein Thrombosis/Pulmonary Embolism Present on Admission: No Assessment & Plan Assessment & Plan narrative: NEURO: # 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, folic acid, and MTV -- remains on precedex -- RASS goal -2 - -3 RESP: # Acute hypoxemia respiratory failure -- Secondary to aspiration vs pulmonary edema vs PE -- On eliquis -- vent/sedation bundle -- f/u CT chest -- trend abg CVS: # A fib w/ RVR -- Secondary to hypoxemia and holiday heart syndrome -- Ordered digoxin 250 mcg IV once given soft BP -- High lytes goal -- On eliquis -- Goal HR < 110 # CHF -- Ordered lasix 40 mg IV once -- Strict I/O -- Place valdivia -- Low Na diet : -- High lytes goal -- Monitor UOP -- Ordered lasix 40 mg IV once ID: # Aspiration PNA -- Check blood cx -- Check resp cx -- on zosyn, low threshold to escalate this further ENDO: -- Goal BS < 180 FEN - plan to adance to TF total cct 35 min D/w bedside RN. Dr. Shields Time Spent With Patient Time with patient: 30 to 49 minutes with 50% spent counseling/coordinating care
[2024-01-30] MEDS: dexmedeTOMIDine in 0.9 % NaCL 400 MCG/100 ML PLAST..BAG 11.612 MCG IV (13:44)
--- NOTE | 2024-01-30 14:50 | DIET.CONS ---
Dietary Consultation Note Admission Date: 01/24/2024 21:04 Assessment: Nutrition f/u. Pt now intubated. OGT placed. Per RN, abdomen is distended and pt has not had bowel movement during hospital stay (since 01/23). TPN is currently running at 20 ml/hr. TF reccs provided if decision is to advance to enteral feedings. Ht: 167.64 cm Wt: 58.06 kg BMI: 20.6 UBW: 54-58 kg Last BM: 01/25/24 (01/25/24 12:00) MNA: 8 Misael Score: 16 Diet: 01/27/24 08:35 NPO Diet Diet Modifications: May Advance Diet as Tolerated: Yes NPO Type: Strict Labs: RBC 2.95 X10^6/uL (4.5-5.9) L 01/29/24 04:57 Hgb 9.5 g/dL (13.5-17.5) L 01/29/24 04:57 Hct 28.4 % (41-53) L 01/29/24 04:57 Creatinine 0.91 mg/dL (0.66-1.25) 01/30/24 05:05 Lactate 1.5 mmol/L (0.7-2.1) 01/26/24 21:16 NT-Pro-B Natriuret Pep 82924 pg/mL (<450) H 01/26/24 19:00 Nutrition Diagnosis: Severe Chronic Protein Calorie Malnutrition r/t to decreased energy intake and increased protein needs with CHF as evidenced by severe muscle wasting (temporalis, interosseous) and severe subcutaneous fat loss (buccal and orbital fat pads), <75% of estimated energy requirements for >1 month, BMI 20.6 (underweight for age), and substance abuse. Interventions: 1. If unable to advance to enteral feedings, continue TPN recc 2. If able to initiate enteral feedings: Recc initiating continuous enteral feeding of Pivot 1.5 via OG tube starting at 10 mL/h. Rate may be increased by 10 mL/h [id number] as tolerated if not showing signs of refeeding syndrome. Goal feeding is continuous enteral feeding via OG of Pivot 1.5 at 45 mL/hr to provide 1758 kcals with propofol at 15 mcg/kh/min, 100 gm protein, 186 gm carb, and 820 mL feed water. Add 125 mL free water flushes q4h. Feed plus flushes provide 30 mL/kg of fluids. 3. Recc refeeding labs bid (K+, Mg, phos) for first 3d of tube feeding. Replete per protocol. EER: [id number] kcals/day (30kcals/kg per BMI) 85-100 g protein/day (1.5-1.6 g/kg for malnutrition) Monitoring/Evaluations: Initiation of TF, rate advancement, tolerance, monitoring for refeeding syndrome, and goal rate adjustments due to propofol adjustments Electronically Signed by: Fely Wallace 01/30/24 14:50 Clinical Dietitian [address] [id number]
[2024-01-30] MEDS: fentaNYL 100 MCG/2 ML INJ 25 MCG IV (15:31)
[2024-01-30 16:15] LABS: Blood Gas Collection Site Right Brachial; Fractionated Inspired Oxygen 40; HCO3 ABG 23 mmol/L (23-27); Oxygen Saturation ABG 98 % (95-100); PCO2 ABG 29.9 mmHg (35-45); PO2 ABG 92 mmHg (80-100); TCO2 ABG 24 mmol/L (23-27)
[2024-01-30] MEDS: AA 5 %/CALCIUM/LYTES/DEXT 20 % 1,000 ML with MULTIVITAMIN 10 ML, TRACE ELEMENTS 1 ML, F... 42.258 ML IV (18:00)
[2024-01-30] MEDS: FAT EMULSIONS 50 GM/250 ML EMULSION IV (18:00)
[2024-01-30] MEDS: NOREPINEPHRINE BITARTRATE/D5W 4 MG/250 ML PLAST..BAG IV (18:04)
--- NOTE | 2024-01-30 18:49 | PM.PN.1 ---
Subjective Subjective Interval history: Overnight patient was intubated for respiratory distress and worsening hypoxia. Needed some pressure support overnight as well. CT scan performed this morning shows ? subcutaneous air in his abdomen, though on exam none is felt and the etiology of this is not clear (possibly Lovenox injections?). He was also noted to have bilateral pleural effusions. Tracheal aspirate / culture shows some budding hyphae but no organisms identified yet. Discussed extensively with tele-hospitalist and then pulmonology later today. Not recommended for bronchoscopy per pulmonology, would recommend thoracentesis. Pulmonology requests holding lovenox and will try to perform thoracentesis tomorrow. IR is unable to do thoracentesis on intubated patient's at [facility]. CT abdomen also showed distended gallbladder, mild wall thickening. NG tube with bilious output. Have not initiated tube feeds today, will continue TPN. His BP was also low this afternoon, requiring re-initiation of levophed. Amiodarone gtt was stopped this afternoon, was developing bradycardia with sedation. Exam Vital Signs (past 8 hours): - 01/30/24 11:00 01/30/24 11:00 01/30/24 11:30 Temperature Pulse Rate 69 63 Respiratory Rate 16 16 Blood Pressure 102/57 L Pulse Oximetry 99 99 Oxygen Delivery Method 01/30/24 11:30 01/30/24 12:00 01/30/24 12:00 Temperature Pulse Rate 61 Respiratory Rate 16 Blood Pressure 108/53 L Pulse Oximetry 100 Oxygen Delivery Method Mechanical Ventilation 01/30/24 12:00 01/30/24 12:30 01/30/24 12:30 Temperature Pulse Rate 66 Respiratory Rate 16 Blood Pressure 116/58 L 117/57 L Pulse Oximetry 100 Oxygen Delivery Method 01/30/24 13:00 01/30/24 13:00 01/30/24 13:30 Temperature Pulse Rate 69 Respiratory Rate 16 Blood Pressure 119/58 L 123/55 L Pulse Oximetry 100 Oxygen Delivery Method 01/30/24 13:30 01/30/24 14:12 01/30/24 14:12 Temperature Pulse Rate 64 73 Respiratory Rate 16 18 Blood Pressure 98/44 L Pulse Oximetry 100 100 Oxygen Delivery Method 01/30/24 14:15 01/30/24 14:15 01/30/24 14:30 Temperature Pulse Rate 69 72 Respiratory Rate 16 16 Blood Pressure 100/55 L Pulse Oximetry 100 100 Oxygen Delivery Method 01/30/24 14:30 01/30/24 14:45 01/30/24 14:45 Temperature Pulse Rate 69 Respiratory Rate 16 Blood Pressure 109/55 L 118/53 L Pulse Oximetry 100 Oxygen Delivery Method 01/30/24 15:00 01/30/24 15:00 01/30/24 15:15 Temperature Pulse Rate 71 71 Respiratory Rate 16 16 Blood Pressure 117/52 L Pulse Oximetry 100 100 Oxygen Delivery Method 01/30/24 15:15 01/30/24 15:30 01/30/24 15:30 Temperature Pulse Rate 71 Respiratory Rate 16 Blood Pressure 113/53 L 119/56 L Pulse Oximetry 100 Oxygen Delivery Method 01/30/24 15:45 01/30/24 15:45 01/30/24 16:00 Temperature Pulse Rate 73 Respiratory Rate 14 Blood Pressure 122/56 L Pulse Oximetry 100 Oxygen Delivery Method Mechanical Ventilation 01/30/24 16:00 01/30/24 16:00 01/30/24 16:15 Temperature Pulse Rate 72 76 Respiratory Rate 14 14 Blood Pressure 122/51 L Pulse Oximetry 99 99 Oxygen Delivery Method 01/30/24 16:15 01/30/24 16:30 01/30/24 16:30 Temperature Pulse Rate 72 Respiratory Rate 14 Blood Pressure 115/53 L 113/49 L Pulse Oximetry 99 Oxygen Delivery Method 01/30/24 16:45 01/30/24 16:45 01/30/24 17:00 Temperature Pulse Rate 67 69 Respiratory Rate 15 16 Blood Pressure 104/51 L Pulse Oximetry 99 99 Oxygen Delivery Method 01/30/24 17:00 01/30/24 17:15 01/30/24 17:15 Temperature Pulse Rate 72 Respiratory Rate 15 Blood Pressure 108/51 L 110/50 L Pulse Oximetry 99 Oxygen Delivery Method 01/30/24 17:30 01/30/24 17:30 01/30/24 17:50 Temperature Pulse Rate 70 79 Respiratory Rate 15 19 Blood Pressure 111/51 L Pulse Oximetry 99 99 Oxygen Delivery Method 01/30/24 17:50 01/30/24 17:51 01/30/24 17:51 Temperature Pulse Rate 75 Respiratory Rate 25 H Blood Pressure 71/45 L 84/48 L Pulse Oximetry 99 Oxygen Delivery Method 01/30/24 18:00 01/30/24 18:00 01/30/24 18:00 Temperature 98.7 F Pulse Rate 74 Respiratory Rate 27 H Blood Pressure 88/43 L Pulse Oximetry 99 Oxygen Delivery Method Fraction of Inspired Oxygen 60 SaO2/FiO2 Ratio 265 Oxygen Delivery Method Mechanical Ventilation Oxygen Flow Rate 40 Narrative Exam Narrative: Gen: intubated, sedated, chronically ill appearing. CV: regular rate with irregularly irregular rhythm Pulm: diminished breath sounds bilateral lung bases. coarse rhonchi, no wheezing Abd: soft, mild distension Ext: trace b/l LE edema Neuro: sedated, moves all extremities during periods of decreased sedation, able to bite ETT. Objective Labs 01/29/24 04:57 01/30/24 05:05 Labs: Laboratory Results - last 24 hr 01/30/24 01/30/24 01/30/24 00:22 02:28 05:05 ABG Sample Site Right radial Right radial ABG pH 7.23 L* 7.44 ABG pCO2 73.8 H* 36.1 ABG pO2 58 L 54 L ABG HCO3 31 H 25 ABG Total CO2 33 H 26 ABG O2 Saturation 83 L* 89 L ABG Base Excess 4.0 H 1.0 FiO2 30 60 Sodium 145 Potassium 3.0 L Chloride 114 H Carbon Dioxide 27 BUN 20 Creatinine 0.91 Estimated GFR > 60 BUN/Creatinine Ratio 22.0 Glucose 278 H Calcium 7.8 L Phosphorus 2.0 L D Magnesium 1.7 01/30/24 15:30 ABG Sample Site Right brachial ABG pH 7.50 H ABG pCO2 29.9 L ABG pO2 92 ABG HCO3 23 ABG Total CO2 24 ABG O2 Saturation 98 ABG Base Excess 0.0 FiO2 40 Sodium Potassium Chloride Carbon Dioxide BUN Creatinine Estimated GFR BUN/Creatinine Ratio Glucose Calcium Phosphorus Magnesium [facility] Medical History Gout COPD (chronic obstructive pulmonary disease) Peripheral neuropathy Retinal detachment Peripheral vascular disease Essential hypertension (11/01/17) Pure hypercholesterolemia (04/24/16) Systolic congestive heart failure (04/24/16) Atrial fibrillation (04/24/16) Arterial embolism of left leg Surgical History Anesthesia History of surgery History of eye surgery History of cataract removal with insertion of prosthetic lens Family History Father History of heart disease Sister Cancer Social History household members: none Smoking Status: Former smoker alcohol intake: current Assessment & Plan Assessment & Plan narrative: Markos Savage is an 78yo male with history of alcohol use, atrial fibrillation on Eliquis, HTN, COPD, PVD, CHF and tobacco use who presented with a ground level fall and continued inability to ambulate since the fall, hospital course complicated by severe alcohol withdrawal, DTs, septic shock due to aspiration pneumonia leading to intubation on 01/29/24. # Sepsis with septic shock with MAGALYS, acute metabolic encephalopathy, elevated bilirubin Right Sided Aspiration Pneumonia - New infiltrates on CXR 01/26/24. - intubated on 4 PM for worsening respiratory status / failure. CT shows pneumonia w/ bilateral pleural effusions. - Ceftriaxone 1 gm Q24h, changed to Zosyn. Leukocytosis was improving - has been on intermittent levophed for soft BP. wean as tolerated with MAP >65. Requires more frequently with adequate sedation. - added fluconazole for possible yobany infection with budding yeast and pseudohyphae on sputum culture. 400 mg dosing given today. Redose tomorrow. - continue to hold home lisinopril - consulted pulmonology, did not recommend bronchoscopy, but will try thoracentesis tomorrow 01/30. Requesting holding anticoagulation overnight. - Abdominal CT shows subcutaneous air, I suspect these are from Lovenox injections possibly as there is no rash or evidence of necrotizing infection on his abdomen. # Acute hypoxic respiratory failure, likely aspiration pneumonia -the patient appears to have RLL aspiration pneumonia with acute deterioration on 01/26/2024 and is being treated for that. - possible volume overload component, will continue with diuresis but only on 20 mg daily for now. May need increase with TPN. -the patient has severe agitation from alcohol withdrawal complicating treatment of the hypoxic respiratory failure. -the patient is being followed by the critical care tele-molder sweep closely, appreciate their assistance. -continued high-flow nasal cannula oxygen, but required intubation on 01/29/24. Will start with sedation vacations first prior to breathing trials, likely will require intubation for many days. -echocardiogram without evidence of significant worsened cardiomyopathy. Ejection fraction is 45-55%. -Started TPN 01/28. #Severe Chronic Protein Calorie Malnutrition r/t to decreased energy intake and increased protein needs with CHF as evidenced by severe muscle wasting (temporalis, interosseous) and severe subcutaneous fat loss (buccal and orbital fat pads), <75% of estimated energy requirements for >1 month, BMI 20.6 (underweight for age), and substance abuse. - continue TPN, high risk for refeeding syndrome. Watch phos levels closely # Severe alcohol withdrawal with delirium Unclear how much he truly drinks in a given day/week, he only endorses 3-4 norbert's hard lemonade a day today. Denies prior seizure or shaking when not drinking. - Now in ICU - Precedex drip, Phenobarbital increased dose and prn and Haldol. Does not respond well to Lorazepam. - Continue IV Thiamine and Folate. - possible sepsis contributing as well. # Atrial Fibrillation, Persistent with RVR - unable to tolerate PO - on lovenox now given no PO intake for anticoagulation. Held for thoracentesis 01/29. - difficulties with afib with RVR the last few days. Did receive amiodarone loading IV. consider either metoprolol IV, resumption of PO via feeding tube, or PO amiodarone depending on BP. # Acute on Chronic HFrEF: Last LVEF was 30% via TTE in 2022. Now with EF of 45-55% - Continue home metoprolol XL, lisinopril, atorvastatin. Will resume some lasix to try and diurese. # Ambulatory Dysfunction: # Ground Level Fall: # Lower Extremity Weakness with history of T6 Compression Fracture: His fall was likely secondary to alcohol intoxication though does have bilateral weakness with T6 compression fracture. He could not tolerate the planned MR of T spine to make sure no spinal pathology and the Shoulder MR plan was also deferred. - Treat alcohol and hypomagnesemia as noted below. - PT/OT consulted and currently on hold - Given his lower extremity weakness and history of T6 compression fracture, tried to do a thoracic spine MRI to rule out acute issue, though he does not have other clinical signs of cord compression. -defer left shoulder MRI for now # Hypomagnesemia: - Received replacement in the ED. - Follow # Left Humeral Head Fracture: Mildly displaced per x-ray. - Continue sling. Non-operative with outpatient management for now, discussed with orthopedics whom recommended MRI for this patient for further evaluation for possible rotator cuff injury. - PRN Hydrocodone and IV Dilaudid while sedated. -shoulder MRI deferred for now as noted above. # Essential Hypertension #tobacco use - nicotine patch Placement -Danni Aldana [facility] has reviewed and accepted him when he is ready. Likely many more days Code Status: Full Code, surrogate is patient's daughter. DVT: on Eliquis normally, now on Lovenox BID 1mg / kg Dispo: SNF when improved, but remains ICU status on precedex infusion. I spent 60 minutes providing critical care management this patient. This excludes time spent in performing separately billed procedures. Quality VTE Deep Vein Thrombosis/Pulmonary Embolism Present on Admission: No
--- NOTE | 2024-01-30 18:58 | PC.NURSE ---
Pt intubated and sedated, Vent day #1, vent settings currently FiO2 35% VT 400 RR 14 PEEP 5, pt tolerating. PICC line and 3 PIV patent, Precedex, Propofol, Norepi, TPN and Lipids infusing as ordered, Q2H turns tolerated well, restraints in place for line and ETT safety, Q6H CBG 104 fingerstick, pt take to CT for abdominal and chest CT as ordered, tolerated well. Dodd patent, VSS, daughter at bedside all day. No further needs at this time.
[2024-01-30] MEDS: NOREPINEPHRINE BITARTRATE/D5W 4 MG/250 ML PLAST..BAG 21.773 MG IV (19:00)
--- NOTE | 2024-01-30 19:45 | P.CONS_ITS ---
History of Present Illness Consult details Date Patient Seen: 01/30/24 Time Patient Seen: 17:45 Chief complaint: fall yesterday, unable to walk today Reason for consult: Pleural effusions Requesting provider: Bon Shields Narrative: I was asked by Dr. Shields to evaluate Mr. Savage for consultation and opinion on acute respiratory failure and pleural effusions. Case reviewed with Dr. Shields, chart reviewed. Patient was sedate and unable to answer a review of systems. Mr. Savage is an 78 year old chronic tobacco smoker with COPD, atrial fibrillation, anticoagulation with apixaban, arterial embolism of lower extremity, hypertension, HFrEF admitted to the hospital with fall, metabolic encephalopathy, finding of left humeral fracture with hospitalization complicated by alcohol withdrawal, aspiration pneumonia, acute respiratory failure with hypoxemia, atrial fibrillation with RVR ultimately requiring intubation and mechanical ventilation. Patient admitted to the hospital 6 days ago, required intubation early the morning of this notation. Tele ICU has been consulting, the patient is currently on AC mode ventilation, FIO2 0.35, PEEP5, set rate of 14, breathing 14 and with spO2 98%. CT chest from today which I personally reviewed shows small-moderate sized effusions, a little larger on the right, basilar atelectasis and consolidation withoutm severe lobar collapse or mucous plugging. Echo from 01/25 showed LVEF 40-45%, reduced RV function, mild- moderate MR, estimated RVSP 67mmHg, and severely enlarged atria. He is currently treated with zosyn, amiodarone infusion, dexmedetomidine infusion and has received furosemide 20 mg IV x 1. Meds Home Medications and Allergies Home Medications Medication Instructions Recorded Confirmed Type lisinopril 10 mg tablet 5 mg (1/2 x 10 mg) PO BID #180 tabs 11/01/22 01/25/24 Rx spironolactone 25 mg tablet 25 mg PO DAILY #90 tabs 02/06/23 01/25/24 Rx metoprolol succinate 50 mg 50 mg PO BID #180 tabs 08/10/23 01/25/24 Rx tablet,extended release 24 hr apixaban 2.5 mg tablet (Eliquis) 2.5 mg PO BID #60 tabs 08/27/23 01/25/24 Rx atorvastatin 80 mg tablet 80 mg PO BEDTIME #30 tabs 10/24/23 01/25/24 Rx furosemide 20 mg tablet 20 mg PO BID #180 tabs 11/12/23 01/25/24 Rx Allergies Allergy/AdvReac Type Severity Reaction Status Date / Time lorazepam AdvReac Severe GOES Verified 01/27/24 10:44 CRAZY FOR NEXT 2 WEEKS Exam Vital Signs (past 8 hours): - 01/30/24 12:00 01/30/24 12:00 01/30/24 12:00 Temperature Pulse Rate 61 Respiratory Rate 16 Blood Pressure 116/58 L Pulse Oximetry 100 Oxygen Delivery Method Mechanical Ventilation 01/30/24 12:30 01/30/24 12:30 01/30/24 13:00 Temperature Pulse Rate 66 69 Respiratory Rate 16 16 Blood Pressure 117/57 L Pulse Oximetry 100 100 Oxygen Delivery Method 01/30/24 13:00 01/30/24 13:30 01/30/24 13:30 Temperature Pulse Rate 64 Respiratory Rate 16 Blood Pressure 119/58 L 123/55 L Pulse Oximetry 100 Oxygen Delivery Method 01/30/24 14:12 01/30/24 14:12 01/30/24 14:15 Temperature Pulse Rate 73 Respiratory Rate 18 Blood Pressure 98/44 L 100/55 L Pulse Oximetry 100 Oxygen Delivery Method 01/30/24 14:15 01/30/24 14:30 01/30/24 14:30 Temperature Pulse Rate 69 72 Respiratory Rate 16 16 Blood Pressure 109/55 L Pulse Oximetry 100 100 Oxygen Delivery Method 01/30/24 14:45 01/30/24 14:45 01/30/24 15:00 Temperature Pulse Rate 69 71 Respiratory Rate 16 16 Blood Pressure 118/53 L Pulse Oximetry 100 100 Oxygen Delivery Method 01/30/24 15:00 01/30/24 15:15 01/30/24 15:15 Temperature Pulse Rate 71 Respiratory Rate 16 Blood Pressure 117/52 L 113/53 L Pulse Oximetry 100 Oxygen Delivery Method 01/30/24 15:30 01/30/24 15:30 01/30/24 15:45 Temperature Pulse Rate 71 73 Respiratory Rate 16 14 Blood Pressure 119/56 L Pulse Oximetry 100 100 Oxygen Delivery Method 01/30/24 15:45 01/30/24 16:00 01/30/24 16:00 Temperature Pulse Rate 72 Respiratory Rate 14 Blood Pressure 122/56 L Pulse Oximetry 99 Oxygen Delivery Method Mechanical Ventilation 01/30/24 16:00 01/30/24 16:15 01/30/24 16:15 Temperature Pulse Rate 76 Respiratory Rate 14 Blood Pressure 122/51 L 115/53 L Pulse Oximetry 99 Oxygen Delivery Method 01/30/24 16:30 01/30/24 16:30 01/30/24 16:45 Temperature Pulse Rate 72 67 Respiratory Rate 14 15 Blood Pressure 113/49 L Pulse Oximetry 99 99 Oxygen Delivery Method 01/30/24 16:45 01/30/24 17:00 01/30/24 17:00 Temperature Pulse Rate 69 Respiratory Rate 16 Blood Pressure 104/51 L 108/51 L Pulse Oximetry 99 Oxygen Delivery Method 01/30/24 17:15 01/30/24 17:15 01/30/24 17:30 Temperature Pulse Rate 72 70 Respiratory Rate 15 15 Blood Pressure 110/50 L Pulse Oximetry 99 99 Oxygen Delivery Method 01/30/24 17:30 01/30/24 17:50 01/30/24 17:50 Temperature Pulse Rate 79 Respiratory Rate 19 Blood Pressure 111/51 L 71/45 L Pulse Oximetry 99 Oxygen Delivery Method 01/30/24 17:51 01/30/24 17:51 01/30/24 18:00 Temperature 98.7 F Pulse Rate 75 Respiratory Rate 25 H Blood Pressure 84/48 L Pulse Oximetry 99 Oxygen Delivery Method 01/30/24 18:00 01/30/24 18:00 Temperature Pulse Rate 74 Respiratory Rate 27 H Blood Pressure 88/43 L Pulse Oximetry 99 Oxygen Delivery Method Fraction of Inspired Oxygen 60 SaO2/FiO2 Ratio 265 Oxygen Delivery Method Mechanical Ventilation Oxygen Flow Rate 40 Narrative Exam Narrative: Elderly man of small body habitus vented, eyes closed and sedated, synchronizing with vent HENMT Other: ETT site intact Resp Other: Bibasilar short crackles, otherwise adequate air movement, no wheezing Cardio Rhythm: abnormal rhythm irregularly irregular Skin General: no rashes or lesions noted Extrem Other: Slight grimace to tactile Objective Labs 01/29/24 04:57 01/30/24 05:05 Labs: Laboratory Results - last 24 hr 01/30/24 01/30/24 01/30/24 00:22 02:28 05:05 ABG Sample Site Right radial Right radial ABG pH 7.23 L* 7.44 ABG pCO2 73.8 H* 36.1 ABG pO2 58 L 54 L ABG HCO3 31 H 25 ABG Total CO2 33 H 26 ABG O2 Saturation 83 L* 89 L ABG Base Excess 4.0 H 1.0 FiO2 30 60 Sodium 145 Potassium 3.0 L Chloride 114 H Carbon Dioxide 27 BUN 20 Creatinine 0.91 Estimated GFR > 60 BUN/Creatinine Ratio 22.0 Glucose 278 H Calcium 7.8 L Phosphorus 2.0 L D Magnesium 1.7 01/30/24 15:30 ABG Sample Site Right brachial ABG pH 7.50 H ABG pCO2 29.9 L ABG pO2 92 ABG HCO3 23 ABG Total CO2 24 ABG O2 Saturation 98 ABG Base Excess 0.0 FiO2 40 Sodium Potassium Chloride Carbon Dioxide BUN Creatinine Estimated GFR BUN/Creatinine Ratio Glucose Calcium Phosphorus Magnesium PFSH Medical History Gout COPD (chronic obstructive pulmonary disease) Peripheral neuropathy Retinal detachment Peripheral vascular disease Essential hypertension (11/01/17) Pure hypercholesterolemia (04/24/16) Systolic congestive heart failure (04/24/16) Atrial fibrillation (04/24/16) Arterial embolism of left leg Surgical History Anesthesia History of surgery History of eye surgery History of cataract removal with insertion of prosthetic lens Family History Father History of heart disease Sister Cancer Social History household members: none Tobacco & Substance Use Smoking Status: Former smoker alcohol intake: current Assessment & Plan Assessment and plan (1) Pleural effusion: Problem details: Bilateral moderate effusions most likely reflecting volume overload in patient with poor underlying health and CHF. Patient would potentially benefit from therapeutic thoracentesis if unable to achieve net negative fluid balance daily of 500-1000 ml and/or if there is evidence that patient is delayed in liberating from vent due to effusions. On my review of case, I recommend more aggressive diuresis if patient able to tolerate, targeting net negative fluid balance daily and goal of ability to oxygenate on minimal vent settings and remain normoxic on daily breathing trials. Would repeat chest xray in 1-2 days. Status: Acute Plan: -No immediate need for thoracentesis -Increase diuresis to achieve net negative fluid balance 500 - 1000 ml / 24 hr -Chest xray in 1-2 days -If unable to achieve net diuresis and minimal vent settings or failure to liberate from vent, consider thoracentesis Thank you very much for the opportunity to evaluate and participate in the care of Mr. Savage. Please contact Pulmonary with any further questions. (2) Heart failure with reduced ejection fraction: Problem details: As above, increase diuresis. Status: Acute (3) Aspiration pneumonia: Problem details: Agree with current antibiotics. Status: Acute Time Spent With Patient Time with patient: 30 to 49 minutes with 50% spent counseling/coordinating care
--- NOTE | 2024-01-30 20:18 | PM.ICURNDS ---
- Date Patient Seen: 01/30/24 Time Patient Seen: 20:18 :: This patient was seen via real time interactive two-way audiovisual telecommunication. Note: patient seen on evening rounds on camera, intubated, sedated comfortable minimal vent settings afebrile, he 70s, sbp 120s, on levo, minimal dose nurse report copious secretions adequate urine output ct reviewed, b/l effusion noted suggest -supportive care -cont abx -chest pt/pulm toilet -thoracentesis in am, hold lovenox -consider bronchosocopy -d/w bedside nurse, Dr. Shields -please call eICU if condition changes
[2024-01-31] VITALS (105 sets, daily range): BP systolic 81–150; BP diastolic 43–67; PULSE 62–88; RESP 14–34; TEMP 36.1–36.6; O2SAT 95–100
[2024-01-31] MEDS: propofoL 1,000 MG/100 ML VIAL 10.451 MG IV ×3 (01:52→17:47)
[2024-01-31 04:20] LABS: Add Manual Diff / Slide Review NO; Basophils Absolute Auto 100 /uL (0-100); Basophils Percent Auto 0.7 % (0-2); Eosinophils Absolute Auto 0 /uL (0-450); Eosinophils Percent Auto 0.4 % (2-4); Hematocrit 28.9 % (41-53); Hemoglobin 9.7 g/dL (13.5-17.5); Lymphocytes Absolute Auto 1600 /uL (1100-4500); Lymphocytes Percent Auto 19.9 % (25-40); Mean Corpuscular HGB Conc 33.6 % (30-36); Mean Corpuscular Hemoglobin 32.3 PG (26-34); Monocytes Absolute Auto 700 /uL (0-900); Monocytes Percent Auto 8.1 % (3-14); Neutrophils Absolute Auto 5800 /uL (1500-7000); Neutrophils Percent Auto 70.9 % (50-75); Platelet Count 205 X10^3/uL (150-400); Red Blood Cell Count 3.02 X10^6/uL (4.5-5.9); Red Cell Distribution Width 13.9 % (11.6-14.8); White Blood Cell Count 8.1 X10^3/uL (4.5-11.0)
[2024-01-31 04:31] LABS: Alanine Aminotransferase 14 IU/L (<50); Albumin Globulin Ratio 0.7 (1.0-2.8); Alkaline Phosphatase 126 U/L (38-126); Aspartate Aminotransferase 23 IU/L (17-59); BUN Creatinine Ratio 20.2 (6-22); Bilirubin Total 0.5 mg/dL (0.2-1.3); Blood Urea Nitrogen 22 mg/dL (9-20); Carbon Dioxide 28 mmol/L (22-32); Chloride 116 mmol/L (98-107); Estimated Glomerular Filt Rate > 60 mL/min (>60); Globulin 2.7 g/dL (1.7-4.1); Glucose 133 mg/dL (80-110); HEMOLYSIS < 15 (0-50); Magnesium 1.7 mg/dL (1.6-2.3); Phosphorous 2.7 mg/dL (2.3-3.7); Potassium 3.4 mmol/L (3.4-5.1); Sodium 146 mmol/L (137-145); Total Protein 4.7 g/dL (6.3-8.2)
[2024-01-31] MEDS: CHLORHEXIDINE GLUCONATE 15 ML CUP PO ×3 (06:05→18:49)
[2024-01-31] MEDS: PIPERACILLIN/TAZO 3.375 GM in SODIUM CHLORIDE 0.9% 100 ML IV ×3 (06:06→21:07)
[2024-01-31] MEDS: dexmedeTOMIDine in 0.9 % NaCL 400 MCG/100 ML PLAST..BAG 14.515 MCG IV ×3 (06:18→20:43)
--- NOTE | 2024-01-31 06:34 | PC.NURSE ---
Patient restful throughout the night, arousable to stimuli, not following commands. Moves all extremities spontaneously against gravity. Vital signs stable, Afib/CVR in the 70s, Afebrile, Norepinephrine titrated off around 8pm, tolerating ventilator settings: 7.5 ETT / at the gums, VC/AC, FiO2=35%, PEEP=5, KR=977, Rate=14. Lungs diminished to auscultation throughout. OGT intact, to LIS, secured to ETT, thin green output noted. Bowel sounds hypoactive. 20F coude catheter intact, yellow urine with sediment noted with decreased urine output, MD aware. Triple lumen PICC to TISH, PIV x3 intact. TPN & Lipids running per order. Precedex and Propofol titrated to a RASS of -2. FLACC scale 0 throughout the night. BUE soft wrist restraints intact for safety, patient turned q2. Updated daughter at beside.
[2024-01-31 06:48] LABS: Blood Gas Collection Site Right Radial; Fractionated Inspired Oxygen 35; HCO3 ABG 26 mmol/L (23-27); Oxygen Saturation ABG 93 % (95-100); PCO2 ABG 38.6 mmHg (35-45); PO2 ABG 66 mmHg (80-100); TCO2 ABG 27 mmol/L (23-27); pH ABG 7.43 (7.35-7.45)
[2024-01-31 06:49] LABS: Allen Test for ABG Passed? Yes, Passed
--- NOTE | 2024-01-31 09:07 | DI.US.S_ITS ---
PROCEDURE: US CHEST COMPARISON: None. INDICATIONS: Pulmonary request to sophie site FINDINGS: Moderate right pleural effusion. The site was marked for pulmonology for thoracentesis. IMPRESSION: Moderate right pleural effusion. The site was marked for pulmonology for thoracentesis. Dictated by: Matias Ross M.D. on 01/31/2024 at 11:51 Approved by: Matias Ross M.D. on 01/31/2024 at 11:52
[2024-01-31] MEDS: PANTOPRAZOLE 40 MG VIAL IV (09:13)
[2024-01-31] MEDS: FUROSEMIDE 40 MG/4 ML VIAL 20 MG IV ×3 (09:13→20:54)
--- NOTE | 2024-01-31 10:20 | P.TELICUPN_ITS ---
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-controls operator molded goods care: Yes Patient Location: ICU Provider location (State): [place] Other participants/roles: RN Interval history: Remains intubated still having copious secretions requiring frequent suctioning 35% fio2, peep 5 on low dose levophed on TPN, planning to trial trickle feeds today planning for thorcentesis today Current Medications Current Medications Medications: Home Medications lisinopril 10 mg tablet 5 mg (1/2 x 10 mg) PO BID #180 tabs 11/01/22 [Rx Confirmed 01/25/24] spironolactone 25 mg tablet 25 mg PO DAILY #90 tabs 02/06/23 [Rx Confirmed 01/25/24] metoprolol succinate 50 mg tablet,extended release 24 hr 50 mg PO BID #180 tabs 08/10/23 [Rx Confirmed 01/25/24] apixaban 2.5 mg tablet (Eliquis) 2.5 mg PO BID #60 tabs 08/27/23 [Rx Confirmed 01/25/24] atorvastatin 80 mg tablet 80 mg PO BEDTIME #30 tabs 10/24/23 [Rx Confirmed 01/25/24] furosemide 20 mg tablet 20 mg PO BID #180 tabs 11/12/23 [Rx Confirmed 01/25/24] Visit Medications (administered) Generic Name Dose Route Start Last Admin Trade Name Freq PRN Reason Stop Dose Admin Albuterol/Ipratropium 3 ml 01/30/24 02:01 01/30/24 02:57 Albuterol/Ipratropium 3 Ml Ampul INH 3 ml RTQ4HR PRN Administration Shortness Of Breath Chlorhexidine Gluconate 15 ml 01/30/24 06:00 01/31/24 06:05 Chlorhexidine Gluconate 15 Ml Cup PO 15 ml Q6HR FRANKO Administration Enoxaparin Sodium 60 mg 01/27/24 10:30 01/31/24 07:39 Enoxaparin 60 Mg/0.6 Ml Syringe SUBCUT Not Given BID FRANKO Fentanyl 25 mcg 01/30/24 13:02 01/30/24 15:31 Fentanyl 100 Mcg/2 Ml Inj IV 25 mcg Q1H PRN Administration Pain, Severe (7-10) Furosemide 20 mg 01/30/24 09:00 01/31/24 09:13 Furosemide 40 Mg/4 Ml Vial IV 20 mg DAILY FRANKO Administration dexmedeTOMIDine in 0.9 % NaCL 400 mcg in 100 mls @ 2.903 mls/hr 01/26/24 19:30 01/31/24 06:18 Precedex IV 1 mcg/kg/hr TITRATE FRANKO 14.515 mls/hr Administration Protocol 0.2 MCG/KG/HR Propofol 1,000 mg in 100 mls @ 1.742 mls/hr 01/30/24 00:45 01/31/24 08:19 Propofol IV 30 mcg/kg/min TITRATE FRANKO 10.451 mls/hr Administration Protocol 5 MCG/KG/MIN Phenylephrine HCl 20,000 mcg/ 250 mls @ 75 mls/hr 01/30/24 00:47 01/30/24 01:49 Dextrose IV 0 mcg/min TITRATE FRANKO 0 mls/hr Titration Protocol 100 MCG/MIN Piperacillin Sod/Tazobactam 100 mls @ 25 mls/hr 01/30/24 14:00 01/31/24 06:06 Sod 3.375 gm/ Sodium Chloride IV 25 mls/hr Q8H FRANKO Administration Multivitamins 10 ml/ Chromium/ 1,014.2 mls @ 42.258 mls/hr 01/30/24 18:00 01/30/24 18:00 Copper/Manganese/Seleni/Zn 1 IV 01/31/24 17:59 42.258 mls/hr ml/ Folic Acid 1 mg/ Thiamine 1800 FRANKO Administration HCl 300 mg/ Amino Acids/ Electrolytes NOREPINEPHRINE BITARTRATE/D5W 4 mg in 250 mls @ 21.773 mls/hr 01/30/24 17:30 01/30/24 20:00 Levophed IV 0 mcg/kg/min TITRATE FRANKO 0 mls/hr Titration Protocol 0.1 MCG/KG/MIN Nicotine 14 mg 01/25/24 12:45 01/31/24 07:39 Nicotine 14 Patch TOP Not Given DAILY FRANKO Ondansetron HCl 4 mg 01/24/24 22:11 01/26/24 18:06 Ondansetron 4 Mg/2 Ml Inj IV 4 mg Q6HR PRN Administration Nausea And Vomiting Pantoprazole Sodium 40 mg 01/30/24 09:00 01/31/24 09:13 Pantoprazole 40 Mg Vial IV 40 mg DAILY FRANKO Administration Objective Ventilator Parameters: Ventilator Settings FiO2 35 CPAP Pressure Amount 5 RT Vent Frequency 14 Ventilator Tidal Volume 400 Exhaled Positive End Expiratory 5 Pressure Inspiratory Phase Time 0.9 I:E Ratio 1:2.7 Patient Position HOB >= [address] scan - chest: Radiologist's impression: see radiologist complete report 01/29 shows focal PNA in RLL, GERRY mod pleural effusion, right >left with bibasilar compressive atelectasis severe cor calcifications cardiomegaly with biatrial enlargement Labs 01/31/24 04:10 01/31/24 04:10 Labs: Laboratory Results - last 24 hr 01/30/24 01/31/24 01/31/24 15:30 04:10 06:29 WBC 8.1 RBC 3.02 L Hgb 9.7 L Hct 28.9 L MCV 96.0 MCH 32.3 MCHC 33.6 RDW 13.9 Plt Count 205 Neut % (Auto) 70.9 Lymph % (Auto) 19.9 L [place] % (Auto) 8.1 Eos % (Auto) 0.4 L Baso % (Auto) 0.7 Neut # (Auto) 5800 Lymph # (Auto) 1600 [place] # (Auto) 700 Eos # (Auto) 0 Baso # (Auto) 100 ABG Sample Site Right brachial Right radial ABG pH 7.50 H 7.43 ABG pCO2 29.9 L 38.6 ABG pO2 92 66 L ABG HCO3 23 26 ABG Total CO2 24 27 ABG O2 Saturation 98 93 L ABG Base Excess 0.0 1.0 FiO2 40 35 Sodium 146 H Potassium 3.4 Chloride 116 H Carbon Dioxide 28 BUN 22 H Creatinine 1.09 Estimated GFR > 60 BUN/Creatinine Ratio 20.2 Glucose 133 H D Calcium 8.0 L Phosphorus 2.7 Magnesium 1.7 Total Bilirubin 0.5 AST 23 ALT 14 Alkaline Phosphatase 126 D Total Protein 4.7 L Albumin 2.0 L Globulin 2.7 Albumin/Globulin Ratio 0.7 L Exam Vital Signs (past 8 hours): - 01/31/24 02:30 01/31/24 02:30 01/31/24 02:45 Temperature Pulse Rate 83 78 Respiratory Rate 14 16 Blood Pressure 108/51 L Pulse Oximetry 98 98 Oxygen Delivery Method 01/31/24 02:45 01/31/24 03:00 01/31/24 03:00 Temperature Pulse Rate 84 Respiratory Rate 16 Blood Pressure 97/49 L 98/59 L Pulse Oximetry 98 Oxygen Delivery Method 01/31/24 03:15 01/31/24 03:15 01/31/24 03:30 Temperature Pulse Rate 84 79 Respiratory Rate 16 14 Blood Pressure 107/51 L Pulse Oximetry 98 98 Oxygen Delivery Method 01/31/24 03:30 01/31/24 03:43 01/31/24 03:43 Temperature Pulse Rate 86 Respiratory Rate 16 Blood Pressure 110/53 L 100/56 L Pulse Oximetry 98 Oxygen Delivery Method 01/31/24 03:45 01/31/24 03:45 01/31/24 04:00 Temperature Pulse Rate 85 84 Respiratory Rate 25 H 16 Blood Pressure 102/50 L Pulse Oximetry 98 98 Oxygen Delivery Method 01/31/24 04:00 01/31/24 04:00 01/31/24 04:15 Temperature Pulse Rate 81 Respiratory Rate 16 Blood Pressure 101/51 L Pulse Oximetry 99 Oxygen Delivery Method Mechanical Ventilation 01/31/24 04:15 01/31/24 04:30 01/31/24 04:30 Temperature 98 F Pulse Rate 85 Respiratory Rate 16 Blood Pressure 101/55 L 110/49 L Pulse Oximetry 98 Oxygen Delivery Method 01/31/24 04:45 01/31/24 04:45 01/31/24 05:00 Temperature Pulse Rate 77 85 Respiratory Rate 16 16 Blood Pressure 112/53 L Pulse Oximetry 98 97 Oxygen Delivery Method 01/31/24 05:00 01/31/24 05:15 01/31/24 05:15 Temperature Pulse Rate 84 Respiratory Rate 16 Blood Pressure 108/53 L 102/49 L Pulse Oximetry 95 Oxygen Delivery Method 01/31/24 05:30 01/31/24 05:30 01/31/24 05:45 Temperature Pulse Rate 74 81 Respiratory Rate 16 16 Blood Pressure 107/53 L Pulse Oximetry 95 96 Oxygen Delivery Method 01/31/24 05:45 01/31/24 06:00 01/31/24 06:00 Temperature Pulse Rate 80 Respiratory Rate 16 Blood Pressure 106/55 L 103/51 L Pulse Oximetry 96 Oxygen Delivery Method 01/31/24 06:15 01/31/24 06:15 01/31/24 06:30 Temperature Pulse Rate 82 80 Respiratory Rate 16 16 Blood Pressure 98/52 L Pulse Oximetry 96 97 Oxygen Delivery Method 01/31/24 06:30 01/31/24 06:45 01/31/24 06:45 Temperature Pulse Rate 79 Respiratory Rate 16 Blood Pressure 108/54 L 111/53 L Pulse Oximetry 98 Oxygen Delivery Method 01/31/24 07:00 01/31/24 07:00 01/31/24 07:15 Temperature Pulse Rate 78 78 Respiratory Rate 16 16 Blood Pressure 106/52 L Pulse Oximetry 98 98 Oxygen Delivery Method 01/31/24 07:15 01/31/24 07:30 01/31/24 07:30 Temperature Pulse Rate 77 Respiratory Rate 28 H Blood Pressure 103/51 L 113/53 L Pulse Oximetry 98 Oxygen Delivery Method 01/31/24 07:45 01/31/24 07:45 01/31/24 08:00 Temperature Pulse Rate 80 76 Respiratory Rate 28 H 28 H Blood Pressure 105/59 L Pulse Oximetry 98 98 Oxygen Delivery Method 01/31/24 08:00 01/31/24 08:15 01/31/24 08:15 Temperature Pulse Rate 72 Respiratory Rate 15 Blood Pressure 108/51 L 110/52 L Pulse Oximetry 98 Oxygen Delivery Method 01/31/24 08:30 01/31/24 08:30 01/31/24 08:45 Temperature Pulse Rate 75 75 Respiratory Rate 29 H 30 H Blood Pressure 109/51 L Pulse Oximetry 99 99 Oxygen Delivery Method 01/31/24 08:45 01/31/24 09:00 01/31/24 09:00 Temperature Pulse Rate 73 Respiratory Rate 29 H Blood Pressure 109/53 L 102/49 L Pulse Oximetry 99 Oxygen Delivery Method 01/31/24 09:15 01/31/24 09:15 01/31/24 09:30 Temperature Pulse Rate 75 69 Respiratory Rate 29 H 28 H Blood Pressure 105/51 L Pulse Oximetry 99 99 Oxygen Delivery Method 01/31/24 09:30 Temperature Pulse Rate Respiratory Rate Blood Pressure 99/51 L Pulse Oximetry Oxygen Delivery Method Fraction of Inspired Oxygen 60 SaO2/FiO2 Ratio 265 Oxygen Delivery Method Mechanical Ventilation Oxygen Flow Rate 40 Narrative Exam Narrative: lying in bed, intubated, sedated. overbreathing vent but not appearing in distress Quality TeleICU VTE Deep Vein Thrombosis/Pulmonary Embolism Present on Admission: No Assessment & Plan Assessment and plan (1) Pleural effusion: Problem details: Bilateral moderate effusions most likely reflecting volume overload in patient with poor underlying health and CHF. Status: Acute (2) Heart failure with reduced ejection fraction: Problem details: As above, increase diuresis. Status: Acute (3) Aspiration pneumonia: Problem details: on zosyn, diflucan Qualifiers: Aspiration pneumonia type: unspecified Laterality: bilateral Status: Acute Assessment & Plan narrative: NEURO: # 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, folic acid, and MTV -- remains on precedex -- RASS goal 0 to -1 RESP: # Acute hypoxemia respiratory failure -- Secondary to aspiration and pulmonary edema/chf --chest ct showing bilatreal pna c/f aspiration plus bilateral pleural effusion -- vent/sedation bundle -- trend abg -- fio2 needs at 35% today, however having copious secretions -- pulm consulting, possible thoracentsis CVS: # A fib w/ RVR - improved -- Secondary to hypoxemia and holiday heart syndrome -- given digoxin 250 mcg IV once -- High lytes goal -- 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 Time Spent With Patient Time with patient: 30 to 49 minutes with 50% spent counseling/coordinating care
--- NOTE | 2024-01-31 11:17 | CM.DPNOTE ---
DCP Note ENGINEHOUSE BRAKEMAN reviewed EMR. Dtr Aruna kindly brought in copies of POA ppwk. CC Francia kindly scanned into chart- physical copy behind facesheet. Pt remains intubated and on TPN for nutrition. ENGINEHOUSE BRAKEMAN updated [facility] at [facility] requests clinicals once extubated and closer to dc date. PASRR needed- complete when pt is alert. Plan: CM team will follow closely. CM team will update dtrs with DCP updates as able. PASRR needed. Dtrs requested to have [facility] re-review once alert due to pt's strong preference for remaining in [place]. Jess Reynoso, JOSE RAMON
[2024-01-31] MEDS: FLUCONAZOLE 200 MG/100 ML PIGGYBACK 100 MG IV (11:36)
[2024-01-31] MEDS: fentaNYL 100 MCG/2 ML INJ 50 MCG IM (12:14)
--- NOTE | 2024-01-31 13:01 | DI.RAD.S_ITS ---
PROCEDURE: XR CHEST 1V INDICATIONS: s/p thoracentesis TECHNIQUE: One view of the chest was acquired. COMPARISON: [facility], CR, XR CHEST 1V, 01/30/2024, 0:56. [facility], CR, XR CHEST 1V, 01/30/2024, 0:27. FINDINGS: Surgical changes and devices: NG tube with side port in the distal esophagus, tip below the field of view. Endotracheal tube with tip approximately 2 cm above the cameron. Stable position of right central venous catheter. Lungs and pleura: Decreased size of trace right pleural effusion. No definite pneumothorax is seen. Small left pleural effusion is similar to prior with adjacent atelectasis versus consolidation Mediastinum: Mediastinal contours appear normal. Heart size is normal. Bones and chest wall: No suspicious bony lesions. Overlying soft tissues appear unremarkable. IMPRESSION: 1. Trace right pleural effusion is decreased compared to prior. No pneumothorax is seen. 2. NG tube with tip in the distal esophagus, recommend advancement. Endotracheal tube with tip approximately 2 cm above the cameron. Dictated by: Matias Ross M.D. on 01/31/2024 at 13:24 Approved by: Matias Ross M.D. on 01/31/2024 at 13:26
--- NOTE | 2024-01-31 14:17 | PM.PROC.1 ---
Procedures Date/Time Date of procedure: 01/31/24 Time of procedure: 12:30 General Procedure description: Thoracentesis Procedure Note INDICATION: Pleural effusion, acute respiratory failure with hypoxia. _PROCEDURE ANODE BUILDER: Bon Shields DO Prior to the procedure informed consent was obtained from the patient's DPOA over the phone, including indications, discussions of risks vs benefits of the procedure. A time out was performed and the chest CT along with previous ultrasound was reviewed, the appropriate side was confirmed and marked. Given the patient's humeral fracture attempt was made to locate an adequate collection on the left side, but there were none. Right side showed still adequate fluid. The patient was then positioned into a left lateral recumbent very carefully. My hands were washed immediately prior to the procedure. I wore a surgical cap, mask with protective eyewear, sterile gown and sterile gloves throughout the procedure. The patient was prepped and draped in a sterile manner using chlorhexidine scrub after the appropriate level was percussed and confirmed by ultrasound. 1% lidocaine was used to anesthesize the skin, subcutaneous tissue, superior aspect of the rib periosteum and parietal pleura. The catheter was then inserted into the pleural space with return of predominantly yellow with pink tinged fluid. Approximately 800 cc of fluid was removed, of which The first 60 cc of which were sent for analysis. I confirmed the removal of a large portion of the pleural fluid with ultrasound. The catheter was then removed. No immediate complications were noted during the procedure. A post-procedure chest x-ray showed improvement in pleural effusion, and no pneumothorax.
[2024-01-31 14:47] LABS: Body Fluid Tot Nucleated Cells 212 /uL
[2024-01-31 14:49] LABS: Body Fluid Appearance SLIGHTLY CLOUDY; Body Fluid Clotted? NO CLOTS PRESENT; Body Fluid Color YELLOW
[2024-01-31 14:53] LABS: Mononuclear WBC Body Fluid 90 %; Polynuclear WBC Body Fluid 10 %
--- NOTE | 2024-01-31 15:18 | P.PN_ITS ---
Subjective Subjective Interval history: Pulmonology recommended diuresis, did not wish to persue thoracentesis. In discussion with intesivist, there was still strong desire for thoracentesis for diagnostic and therapeutic purposes. I performed the procedure at bedside, please see separate note from procedure. Fluid analysis is pending. Will trial trickle tube feeds, on CT imaging patient's stomach appears very small, unclear if he will be able to even tolerate the recommended 45 cc per hour. Will leave on TPN again tonight. No sedation vacation today given thoracentesis. Still intermittently on pressors. Phos improved today. Na 146, will start tube feeds and small amount of free water via tube. Repeat CXR read as to advance the gastric tube, but on my reading tube is in the appropriate position. Exam Vital Signs (past 8 hours): - 01/31/24 07:30 01/31/24 07:30 01/31/24 07:45 Pulse Rate 77 80 Respiratory Rate 28 H 28 H Blood Pressure 113/53 L Pulse Oximetry 98 98 Oxygen Delivery Method 01/31/24 07:45 01/31/24 08:00 01/31/24 08:00 Pulse Rate 76 Respiratory Rate 28 H Blood Pressure 105/59 L 108/51 L Pulse Oximetry 98 Oxygen Delivery Method 01/31/24 08:00 01/31/24 08:15 01/31/24 08:15 Pulse Rate 72 Respiratory Rate 15 Blood Pressure 110/52 L Pulse Oximetry 98 Oxygen Delivery Method Mechanical Ventilation 01/31/24 08:30 01/31/24 08:30 01/31/24 08:45 Pulse Rate 75 75 Respiratory Rate 29 H 30 H Blood Pressure 109/51 L Pulse Oximetry 99 99 Oxygen Delivery Method 01/31/24 08:45 01/31/24 09:00 01/31/24 09:00 Pulse Rate 73 Respiratory Rate 29 H Blood Pressure 109/53 L 102/49 L Pulse Oximetry 99 Oxygen Delivery Method 01/31/24 09:15 01/31/24 09:15 01/31/24 09:30 Pulse Rate 75 69 Respiratory Rate 29 H 28 H Blood Pressure 105/51 L Pulse Oximetry 99 99 Oxygen Delivery Method 01/31/24 09:30 01/31/24 09:45 01/31/24 09:45 Pulse Rate 78 Respiratory Rate 28 H Blood Pressure 99/51 L 105/51 L Pulse Oximetry 99 Oxygen Delivery Method 01/31/24 10:00 01/31/24 10:00 01/31/24 10:15 Pulse Rate 83 72 Respiratory Rate 25 H 31 H Blood Pressure 109/51 L Pulse Oximetry 99 99 Oxygen Delivery Method 01/31/24 10:15 01/31/24 10:30 01/31/24 10:30 Pulse Rate 72 Respiratory Rate 29 H Blood Pressure 100/47 L 100/46 L Pulse Oximetry 98 Oxygen Delivery Method 01/31/24 10:45 01/31/24 10:45 01/31/24 11:00 Pulse Rate 75 78 Respiratory Rate 26 H 26 H Blood Pressure 98/47 L Pulse Oximetry 99 99 Oxygen Delivery Method 01/31/24 11:00 01/31/24 11:15 01/31/24 11:15 Pulse Rate 73 Respiratory Rate 25 H Blood Pressure 97/55 L 92/53 L Pulse Oximetry 99 Oxygen Delivery Method 01/31/24 11:30 01/31/24 11:30 01/31/24 11:45 Pulse Rate 77 73 Respiratory Rate 26 H 27 H Blood Pressure 96/53 L Pulse Oximetry 100 98 Oxygen Delivery Method 01/31/24 11:45 01/31/24 12:00 01/31/24 12:00 Pulse Rate 74 Respiratory Rate 29 H Blood Pressure 91/55 L Pulse Oximetry 97 Oxygen Delivery Method Mechanical Ventilation 01/31/24 12:00 01/31/24 12:15 01/31/24 12:15 Pulse Rate 66 Respiratory Rate 27 H Blood Pressure 100/49 L 106/50 L Pulse Oximetry 97 Oxygen Delivery Method 01/31/24 12:30 01/31/24 12:30 01/31/24 12:45 Pulse Rate 71 68 Respiratory Rate 24 26 H Blood Pressure 129/52 L Pulse Oximetry 99 99 Oxygen Delivery Method 01/31/24 12:45 01/31/24 13:00 01/31/24 13:00 Pulse Rate 67 Respiratory Rate 34 H Blood Pressure 141/65 H 140/66 Pulse Oximetry 100 Oxygen Delivery Method 01/31/24 13:15 01/31/24 13:15 01/31/24 13:30 Pulse Rate 70 69 Respiratory Rate 27 H 21 Blood Pressure 147/63 H Pulse Oximetry 100 100 Oxygen Delivery Method 01/31/24 13:30 01/31/24 13:45 01/31/24 13:45 Pulse Rate 69 Respiratory Rate 27 H Blood Pressure 134/62 138/60 Pulse Oximetry 100 Oxygen Delivery Method 01/31/24 14:00 01/31/24 14:00 01/31/24 14:15 Pulse Rate 67 Respiratory Rate 24 Blood Pressure 150/67 H 122/60 Pulse Oximetry 100 Oxygen Delivery Method 01/31/24 14:15 Pulse Rate 70 Respiratory Rate 26 H Blood Pressure Pulse Oximetry 99 Oxygen Delivery Method Fraction of Inspired Oxygen 60 SaO2/FiO2 Ratio 265 Oxygen Delivery Method Mechanical Ventilation Oxygen Flow Rate 40 Narrative Exam Narrative: Gen: intubated, sedated, chronically ill appearing. CV: regular rate with irregularly irregular rhythm Pulm: diminished breath sounds bilateral lung bases. coarse rhonchi, no wheezing Abd: soft, mild distension Ext: trace b/l LE edema Neuro: sedated, moves all extremities during periods of decreased sedation, able to bite ETT. Objective Labs 01/31/24 04:10 01/31/24 04:10 Labs: Laboratory Results - last 24 hr 01/30/24 01/31/24 01/31/24 15:30 04:10 06:29 WBC 8.1 RBC 3.02 L Hgb 9.7 L Hct 28.9 L MCV 96.0 MCH 32.3 MCHC 33.6 RDW 13.9 Plt Count 205 Neut % (Auto) 70.9 Lymph % (Auto) 19.9 L [place] % (Auto) 8.1 Eos % (Auto) 0.4 L Baso % (Auto) 0.7 Neut # (Auto) 5800 Lymph # (Auto) 1600 [place] # (Auto) 700 Eos # (Auto) 0 Baso # (Auto) 100 ABG Sample Site Right brachial Right radial ABG pH 7.50 H 7.43 ABG pCO2 29.9 L 38.6 ABG pO2 92 66 L ABG HCO3 23 26 ABG Total CO2 24 27 ABG O2 Saturation 98 93 L ABG Base Excess 0.0 1.0 FiO2 40 35 Sodium 146 H Potassium 3.4 Chloride 116 H Carbon Dioxide 28 BUN 22 H Creatinine 1.09 Estimated GFR > 60 BUN/Creatinine Ratio 20.2 Glucose 133 H D Calcium 8.0 L Phosphorus 2.7 Magnesium 1.7 Total Bilirubin 0.5 AST 23 ALT 14 Alkaline Phosphatase 126 D Total Protein 4.7 L Albumin 2.0 L Globulin 2.7 Albumin/Globulin Ratio 0.7 L Fluid Color Fluid Appearance Fluid RBC Fld Tot Nucleated Cell Fluid Polynuclear WBCs Fluid Mononuclear WBCs Fluid Eosinophils Fluid Other Cells Body Fluid Clot 01/31/24 13:00 WBC RBC Hgb Hct MCV MCH MCHC RDW Plt Count Neut % (Auto) Lymph % (Auto) [place] % (Auto) Eos % (Auto) Baso % (Auto) Neut # (Auto) Lymph # (Auto) [place] # (Auto) Eos # (Auto) Baso # (Auto) ABG Sample Site ABG pH ABG pCO2 ABG pO2 ABG HCO3 ABG Total CO2 ABG O2 Saturation ABG Base Excess FiO2 Sodium Potassium Chloride Carbon Dioxide BUN Creatinine Estimated GFR BUN/Creatinine Ratio Glucose Calcium Phosphorus Magnesium Total Bilirubin AST ALT Alkaline Phosphatase Total Protein Albumin Globulin Albumin/Globulin Ratio Fluid Color Yellow Fluid Appearance Slightly cloudy Fluid RBC [id number] Fld Tot Nucleated Cell 212 Fluid Polynuclear WBCs 10 Fluid Mononuclear WBCs 90 Fluid Eosinophils Not Reportable Fluid Other Cells Not Reportable Body Fluid Clot No clots present [facility] Medical History Gout COPD (chronic obstructive pulmonary disease) Peripheral neuropathy Retinal detachment Peripheral vascular disease Essential hypertension (11/01/17) Pure hypercholesterolemia (04/24/16) Systolic congestive heart failure (04/24/16) Atrial fibrillation (04/24/16) Arterial embolism of left leg Surgical History Anesthesia History of surgery History of eye surgery History of cataract removal with insertion of prosthetic lens Family History Father History of heart disease Sister Cancer Social History household members: none Smoking Status: Former smoker alcohol intake: current Assessment & Plan Assessment & Plan narrative: Markos Saavge is an 78yo male with history of alcohol use, atrial fibrillation on Eliquis, HTN, COPD, PVD, CHF and tobacco use who presented with a ground level fall and continued inability to ambulate since the fall, hospital course complicated by severe alcohol withdrawal, DTs, septic shock due to aspiration pneumonia leading to intubation on 01/29/24. # Sepsis with septic shock with MAGALYS, acute metabolic encephalopathy, elevated bilirubin Right Sided Aspiration Pneumonia - New infiltrates on CXR 01/26/24. - intubated on 4/2 PM for worsening respiratory status / failure. CT shows pneumonia w/ bilateral pleural effusions. - Ceftriaxone 1 gm Q24h, changed to Zosyn. Leukocytosis now resolved. - has been on intermittent levophed for soft BP. wean as tolerated with MAP >65. Requires more frequently with adequate sedation. - added fluconazole for possible yobany infection with budding yeast and pseudohyphae on sputum culture. 400 mg dosing given initially, continue 200 mg daily for 14 days for presumed thrush and possible candidal pneumonia. Follow up cultures. Also sent fungal culture with thoracentesis. - continue to hold home lisinopril - consulted pulmonology, did not recommend bronchoscopy, recommended diuresis first. Discussed with tele-meat counter worker today, thought benefits of thoracentesis for diagnosis and improvement in respiratory status outweigh risks. R Thoracentesis performed at bedside on 01/30, with 800 cc fluid removed. Sent for total protein, cell count, culture, cytology, and fungal culture. LDH or pH studies are not available for sendout at [facility]. - Abdominal CT shows subcutaneous air, I suspect these are from Lovenox injections possibly as there is no rash or evidence of necrotizing infection on his abdomen. He also has a very small stomach on CT, will start very slow with tube feeds initially. - start sedation vacations starting 01/31. Family does not want trach or PEG per advanced directives. # Acute hypoxic respiratory failure, likely aspiration pneumonia, Acute on chronic HFrEF with R pleural effusion -the patient appears to have RLL aspiration pneumonia with acute deterioration on 01/26/2024 and is being treated for that. - possible volume overload component, will continue with diuresis, increased to TID today. May need increase with TPN. S/p Thoracentesis on 01/30 with 800 cc removed. -the patient has severe agitation from alcohol withdrawal complicating treatment of the hypoxic respiratory failure. -the patient is being followed by the critical care tele-meat counter worker closely, appreciate their assistance. -continued high-flow nasal cannula oxygen, but required intubation on 01/29/24. Will start with sedation vacations tomorrow and if improved breathing trials, likely will require intubation for many days. -echocardiogram without evidence of significant worsened cardiomyopathy. Ejection fraction is 45-55%. #Severe Chronic Protein Calorie Malnutrition r/t to decreased energy intake and increased protein needs with CHF as evidenced by severe muscle wasting (temporalis, interosseous) and severe subcutaneous fat loss (buccal and orbital fat pads), <75% of estimated energy requirements for >1 month, BMI 20.6 (underweight for age), and substance abuse. -Started TPN 01/28 and will continue. Goal tube feeds are 45 cc per hour, will see if he tolerates 20 cc with his small stomach. Watch phos levels closely, high risk for refeeding syndrome. # Severe alcohol withdrawal with delirium Unclear how much he truly drinks in a given day/week, he only endorses 3-4 norbert's hard lemonade a day today. Denied prior seizure or shaking when not drinking. - Now in ICU - Precedex drip, Phenobarbital increased dose and prn and Haldol. Does not respond well to Lorazepam. - Continue IV Thiamine and Folate. - possible sepsis contributing as well. # Atrial Fibrillation, Persistent with RVR - unable to tolerate PO - on lovenox now given no PO intake for anticoagulation. Held for thoracentesis 01/29. - difficulties with afib with RVR the last few days. Did receive amiodarone loading IV. consider either metoprolol IV, resumption of PO via feeding tube, or PO amiodarone depending on BP. # Acute on Chronic HFrEF: Last LVEF was 30% via TTE in 2022. Now with EF of 45-55% - Continue home metoprolol XL, lisinopril, atorvastatin. Will resume some lasix to try and diurese. # Ambulatory Dysfunction: # Ground Level Fall: # Lower Extremity Weakness with history of T6 Compression Fracture: His fall was likely secondary to alcohol intoxication though does have bilateral weakness with T6 compression fracture. He could not tolerate the planned MR of T spine to make sure no spinal pathology and the Shoulder MR plan was also deferred. - Treat alcohol and hypomagnesemia as noted below. - PT/OT consulted and currently on hold - Given his lower extremity weakness and history of T6 compression fracture, tried to do a thoracic spine MRI to rule out acute issue, though he does not have other clinical signs of cord compression. -defer left shoulder MRI for now # Hypomagnesemia: - Received replacement - Follow # Left Humeral Head Fracture: Mildly displaced per x-ray. - Continue sling. Non-operative with outpatient management for now, discussed with orthopedics whom recommended MRI for this patient for further evaluation for possible rotator cuff injury. - PRN Hydrocodone and IV Dilaudid while sedated. -shoulder MRI deferred for now as noted above. # Essential Hypertension - holding home medications #tobacco use - nicotine patch Placement -[facility] has [facility] and accepted him when he is ready. Likely many more days Code Status: Full Code, surrogate is patient's daughter. DVT: on Eliquis normally, now on Lovenox BID 1mg / kg, held prior to thoracentesis but will resume. Dispo: Remains ICU. I spent 35 minutes providing critical care management this patient. This excludes time spent in performing separately billed procedures. Quality VTE Deep Vein Thrombosis/Pulmonary Embolism Present on Admission: No
--- NOTE | 2024-01-31 15:22 | DIET.CONS ---
Dietary Consultation Note Admission Date: 01/24/2024 21:04 Assessment: Nutrition f/u for beginning trickle enteral feeds this evening. Ht: 167.64 cm Wt: 58.06 kg BMI: 20.6 UBW: 54-58 kg per pt Last BM: 01/25/24 (01/25/24 12:00) MNA: 8 Misael Score: 16 Diet: 01/27/24 08:35 NPO Diet Diet Modifications: May Advance Diet as Tolerated: Yes NPO Type: Strict 01/31/24 Dinner Tube Feeding Diet Diet Modifications: TF Supplement type: Pivot 1.5 [place] TF mode of delivery: Continuous Starting flow rate mL/hr: 10 Flow rate goal mL/hr: 20 Titration Schedule to reach Goal Rate: advance 5 ml/hr q12 hr Max total daily volume in mL: 500 Free fluid: 50 Free Water Frequency: Q6H Labs: RBC 3.02 X10^6/uL (4.5-5.9) L 01/31/24 04:10 Hgb 9.7 g/dL (13.5-17.5) L 01/31/24 04:10 Hct 28.9 % (41-53) L 01/31/24 04:10 Creatinine 1.09 mg/dL (0.66-1.25) 01/31/24 04:10 Lactate 1.5 mmol/L (0.7-2.1) 01/26/24 21:16 NT-Pro-B Natriuret Pep 46932 pg/mL (<450) H 01/26/24 19:00 Nutrition Diagnosis: Severe Chronic Protein Calorie Malnutrition r/t to decreased energy intake and increased protein needs with CHF as evidenced by severe muscle wasting (temporalis, interosseous) and severe subcutaneous fat loss (buccal and orbital fat pads), <75% of estimated energy requirements for >1 month, BMI 20.6 (underweight for age), and substance abuse. Interventions: 1. Recc discontinue IVFE 3x/week due to propofol meeting lipid needs. 2. Recc continuing 1 L Clinimix 5/20 running at 42 mL/hr. Will continue to monitor Clinimix 5/20 rate daily as enteral feedings advance. 3. Initiate continuous enteral feeding of Pivot 1.5 via OG tube starting at 10 mL/hr. Rate may be increased by 5-10 mL/hr q24h if not showing signs of refeeding syndrome. Enteral trickle feedings at 10 mL/hr, 1 L Clinimix 5/20 running at 42 mL/hr, and propofol running at 30 mcg/kg/min meets 90% of pt's estimated energy needs and 85% of estimated protein needs. Goal feeding is continuous enteral feeding via OG tube of Pivot 1.5 at 40 mL/hr to provide 1715 kcals with propofol at 30 mcg/kg/min, 90 g protein, 166 g of carbs, and 730 mL of feed water. 4. Recc monitoring refeeding labs (K+, Mg, phos) per protocol. EER: [id number] kcals/day (30 kcals/kg per BMI) 85-95 g protein/day (1.5 g/kg for severe malnutrition) Monitoring/Evaluations: Initiation of TF, rate advancement, TPN rate adjustments, tolerance, monitoring for refeeding syndrome, and goal rate adjustments due to propofol adjustments Electronically Signed by: Fely Wallace 01/31/24 15:22 Clinical Dietitian [address] [id number]
--- NOTE | 2024-01-31 15:24 | PC.NURSE ---
Dayshift note: Pt stable through out shift, rouses to stimuli, does not follow commands, able to move all extremities independently and against gravity. Telemetry shows Afib/CVR in the 70s, VSS, afebrile, Norepi turned back on at 1230 prior to thoracentesis procedure at bedside, due to the need to sedate pt for procedure. Dr Shields performed procedure with this nurse and MARIBEL Emerson assisting, time out performed, pt tolerated procedure well with 810cc removed, samples sent to lab for analysis. Pt tolerating ventilator settings 7.5 ETT / at [facility], VC/AC, FiO2 30%, TV 400, Rate 14, PEEP 5, lungs dim throughout, OGT intact (after pulling back 2-[address] Shields), connected to LIS, secured to ETT, bilious output noted. Bowel sounds hypoactive. Dodd catheter patent and intact, draining yellow urine with sediment. Triple lumen PICC to TISH, PIV x3 patent and intact. TPN, Precedex, Propofol infusing as ordered, titrated to RASS of -2. FLACC scale betwen 1-5 throughout day, pain medications administered as ordered. BUE soft wrist restraints intact for safety, and to prevent pulling of lines, Q2H turns, Q6H blood sugar checks, daughter(s) updated via phone or in person. Will continue to treat and monitor as ordered.
[2024-01-31 17:44] LABS: HEMOLYSIS < 15 (0-50); Magnesium 1.8 mg/dL (1.6-2.3); Phosphorous 5.7 mg/dL (2.3-3.7); Potassium 4.3 mmol/L (3.4-5.1)
[2024-01-31 17:52] LABS: NT-proBNP (BNP-Adult 18+) 5400 pg/mL (<450)
[2024-01-31] MEDS: AA 5 %/CALCIUM/LYTES/DEXT 20 % 1,000 ML with MULTIVITAMIN 10 ML, TRACE ELEMENTS 1 ML, T... 42.842 ML IV (17:52)
[2024-01-31 17:58] LABS: Triglycerides 86 mg/dL (35-150)
--- NOTE | 2024-01-31 18:21 | DI.RAD.S_ITS ---
PROCEDURE: XR CHEST 1V INDICATIONS: increased secretions, recent thoracentesis, re-eval TECHNIQUE: One view of the chest was acquired. COMPARISON: [facility], CR, XR CHEST 1V, 01/31/2024, 12:59. [facility], CR, XR CHEST 1V, 01/30/2024, 0:56. FINDINGS: Surgical changes and devices: NG tube with side port in the distal esophagus. Endotracheal tube with tip approximately 4 cm above the cameron, overlying material limits evaluation. Stable right-sided PICC. Lungs and pleura: No right-sided pneumothorax. Stable small left pleural effusion with adjacent atelectasis versus consolidation. No significant right pleural effusion. Mediastinum: Mediastinal contours appear normal. Heart size is normal. Bones and chest wall: No suspicious bony lesions. Overlying soft tissues appear unremarkable. IMPRESSION: 1. No pneumothorax is seen. Stable small left pleural effusion with adjacent atelectasis versus consolidation. 2. NG tube is redemonstrated with side port in the distal esophagus, recommend advancement. Dictated by: Matias Ross M.D. on 01/31/2024 at 18:54 Approved by: Matias Ross M.D. on 01/31/2024 at 18:56
--- NOTE | 2024-01-31 20:38 | PM.ICURNDS ---
- :: This patient was seen via real time interactive two-way audiovisual telecommunication. spoke with bedside team currently diuiresing well, with -2L total since this AM. he remains sedated but not purposeful and likely will be an issue going forward will continue lasix at current dose and coisder drip if UO slows on bx and will wean off pressors as toelrated on feeds, wean off TPN
[2024-01-31] MEDS: ENOXAPARIN 60 MG/0.6 ML SYRINGE SUBCUT (20:53)
[2024-02-01] VITALS (120 sets, daily range): BP systolic 69–124; BP diastolic 32–64; PULSE 67–157; RESP 14–31; TEMP 36.5–37.2; O2SAT 96–100
[2024-02-01] MEDS: CHLORHEXIDINE GLUCONATE 15 ML CUP PO ×5 (00:27→23:50)
[2024-02-01] MEDS: propofoL 1,000 MG/100 ML VIAL 10.451 MG IV (02:24)
[2024-02-01] MEDS: dexmedeTOMIDine in 0.9 % NaCL 400 MCG/100 ML PLAST..BAG 14.515 MCG IV ×2 (04:00→18:27)
[2024-02-01 04:16] LABS: Add Manual Diff / Slide Review NO; Basophils Absolute Auto 100 /uL (0-100); Basophils Percent Auto 0.5 % (0-2); Eosinophils Absolute Auto 200 /uL (0-450); Eosinophils Percent Auto 1.5 % (2-4); Hematocrit 30.4 % (41-53); Hemoglobin 9.6 g/dL (13.5-17.5); Lymphocytes Absolute Auto 1900 /uL (1100-4500); Lymphocytes Percent Auto 18.5 % (25-40); Mean Corpuscular HGB Conc 31.7 % (30-36); Mean Corpuscular Hemoglobin 31.7 PG (26-34); Mean Corpuscular Volume 99.9 fL (80-100); Monocytes Absolute Auto 900 /uL (0-900); Monocytes Percent Auto 8.9 % (3-14); Neutrophils Absolute Auto 7200 /uL (1500-7000); Neutrophils Percent Auto 70.6 % (50-75); Platelet Count 249 X10^3/uL (150-400); Red Blood Cell Count 3.04 X10^6/uL (4.5-5.9); Red Cell Distribution Width 14.7 % (11.6-14.8); White Blood Cell Count 10.2 X10^3/uL (4.5-11.0)
[2024-02-01 05:55] LABS: Alanine Aminotransferase 20 IU/L (<50); Albumin 2.2 g/dL (3.5-5.0); Albumin Globulin Ratio 0.8 (1.0-2.8); Alkaline Phosphatase 167 U/L (38-126); Aspartate Aminotransferase 49 IU/L (17-59); BUN Creatinine Ratio 23.4 (6-22); Bilirubin Total 0.5 mg/dL (0.2-1.3); Blood Urea Nitrogen 26 mg/dL (9-20); Calcium 7.8 mg/dL (8.4-10.2); Carbon Dioxide 32 mmol/L (22-32); Chloride 110 mmol/L (98-107); Estimated Glomerular Filt Rate > 60 mL/min (>60); Globulin 2.8 g/dL (1.7-4.1); Glucose 130 mg/dL (80-110); HEMOLYSIS < 15 (0-50); Magnesium 2.1 mg/dL (1.6-2.3); Phosphorous 3.9 mg/dL (2.3-3.7); Potassium 3.3 mmol/L (3.4-5.1); Sodium 143 mmol/L (137-145)
[2024-02-01] MEDS: PIPERACILLIN/TAZO 3.375 GM in SODIUM CHLORIDE 0.9% 100 ML IV ×3 (06:24→21:13)
--- NOTE | 2024-02-01 06:30 | DI.US.S_ITS ---
PROCEDURE: US PERIPH VENOUS UP EXTREM RT INDICATIONS: EDEMA TECHNIQUE: Real-time imaging, as well as color and pulse Doppler interrogation, was performed of the upper extremity deep veins from the inferior neck to the antecubital fossa. COMPARISON: None. FINDINGS: The internal jugular vein, visualized portions of the subclavian vein, axillary, and brachial veins are free of intraluminal thrombus. Where physically possible, the veins are normally compressible. Color and pulse Doppler demonstrate normal intraluminal flow, with expected phasicity and pulsatility. Additional scanning of the cephalic and basilic veins of the superficial system demonstrates normal compressibility, without thrombus. IMPRESSION: No findings of upper extremity deep venous thrombosis can be seen. Dictated by: Emilio Olivera M.D. on 02/01/2024 at 8:03 Approved by: Emilio Olivera M.D. on 02/01/2024 at 8:03
--- NOTE | 2024-02-01 07:51 | PM.PN.1 ---
Subjective Subjective Interval history: From previous notes: Pulmonology recommended diuresis, did not wish to persue thoracentesis. In discussion with intesivist, there was still strong desire for thoracentesis for diagnostic and therapeutic purposes. I performed the procedure at bedside, please see separate note from procedure. Fluid analysis is pending. Will trial trickle tube feeds, on CT imaging patient's stomach appears very small, unclear if he will be able to even tolerate the recommended 45 cc per hour. Will leave on TPN again tonight. No sedation vacation today given thoracentesis. Still intermittently on pressors. Phos improved today. Na 146, will start tube feeds and small amount of free water via tube. Repeat CXR read as to advance the gastric tube, but on my reading tube is in the appropriate position. Today: Stable on vent, FiO2 30, PEEP 5. Narrative not obtainable, on the Ventilator. Exam Vital Signs (past 8 hours): - 02/01/24 00:00 02/01/24 00:00 02/01/24 00:15 Temperature 97.7 F Pulse Rate 72 72 Respiratory Rate 15 21 Blood Pressure 106/51 L Pulse Oximetry 100 100 Oxygen Delivery Method Oxygen Flow Rate 0 02/01/24 00:15 02/01/24 00:20 02/01/24 00:30 Temperature Pulse Rate Respiratory Rate Blood Pressure 101/54 L 95/47 L Pulse Oximetry Oxygen Delivery Method Mechanical Ventilation Oxygen Flow Rate 02/01/24 00:30 02/01/24 00:45 02/01/24 00:45 Temperature Pulse Rate 77 77 Respiratory Rate 17 23 Blood Pressure 93/50 L Pulse Oximetry 100 100 Oxygen Delivery Method Oxygen Flow Rate 02/01/24 01:00 02/01/24 01:00 02/01/24 01:15 Temperature Pulse Rate 78 Respiratory Rate 22 Blood Pressure 91/47 L 106/53 L Pulse Oximetry 100 Oxygen Delivery Method Oxygen Flow Rate 0 02/01/24 01:15 02/01/24 01:30 02/01/24 01:30 Temperature Pulse Rate 75 73 Respiratory Rate 20 22 Blood Pressure 112/56 L Pulse Oximetry 100 100 Oxygen Delivery Method Oxygen Flow Rate 02/01/24 01:45 02/01/24 01:45 02/01/24 02:00 Temperature Pulse Rate 67 71 Respiratory Rate 22 20 Blood Pressure 109/51 L Pulse Oximetry 100 100 Oxygen Delivery Method Oxygen Flow Rate 0 02/01/24 02:00 02/01/24 02:15 02/01/24 02:15 Temperature Pulse Rate 67 Respiratory Rate 15 Blood Pressure 103/52 L 103/51 L Pulse Oximetry 100 Oxygen Delivery Method Oxygen Flow Rate 02/01/24 02:30 02/01/24 02:30 02/01/24 02:45 Temperature Pulse Rate 79 Respiratory Rate 15 Blood Pressure 106/53 L 99/53 L Pulse Oximetry 99 Oxygen Delivery Method Oxygen Flow Rate 02/01/24 02:45 02/01/24 03:00 02/01/24 03:00 Temperature Pulse Rate 83 79 Respiratory Rate 15 15 Blood Pressure 99/53 L Pulse Oximetry 100 100 Oxygen Delivery Method Oxygen Flow Rate 02/01/24 03:15 02/01/24 03:15 02/01/24 03:30 Temperature Pulse Rate 75 75 Respiratory Rate 16 14 Blood Pressure 105/52 L Pulse Oximetry 100 100 Oxygen Delivery Method Oxygen Flow Rate 02/01/24 03:30 02/01/24 03:45 02/01/24 03:45 Temperature Pulse Rate 74 Respiratory Rate 26 H Blood Pressure 113/53 L 97/47 L Pulse Oximetry 100 Oxygen Delivery Method Oxygen Flow Rate 0 02/01/24 04:00 02/01/24 04:00 02/01/24 04:00 Temperature 98.1 F Pulse Rate 79 Respiratory Rate 24 Blood Pressure 105/53 L Pulse Oximetry 100 Oxygen Delivery Method Mechanical Ventilation Oxygen Flow Rate 0 02/01/24 04:15 02/01/24 04:15 02/01/24 04:30 Temperature Pulse Rate 73 78 Respiratory Rate 24 23 Blood Pressure 116/57 L Pulse Oximetry 100 100 Oxygen Delivery Method Oxygen Flow Rate 02/01/24 04:30 02/01/24 04:45 02/01/24 04:45 Temperature Pulse Rate 73 Respiratory Rate 23 Blood Pressure 123/59 L 115/56 L Pulse Oximetry 100 Oxygen Delivery Method Oxygen Flow Rate 0 02/01/24 05:00 02/01/24 05:00 02/01/24 05:15 Temperature Pulse Rate 73 75 Respiratory Rate 23 15 Blood Pressure 111/56 L Pulse Oximetry 100 100 Oxygen Delivery Method Oxygen Flow Rate 0 02/01/24 05:15 02/01/24 05:30 02/01/24 05:30 Temperature Pulse Rate 81 Respiratory Rate 15 Blood Pressure 115/56 L 108/57 L Pulse Oximetry 100 Oxygen Delivery Method Oxygen Flow Rate 02/01/24 05:45 02/01/24 05:45 02/01/24 06:00 Temperature Pulse Rate 80 Respiratory Rate 15 Blood Pressure 105/51 L 111/55 L Pulse Oximetry 100 Oxygen Delivery Method Oxygen Flow Rate 02/01/24 06:00 02/01/24 06:15 02/01/24 06:15 Temperature Pulse Rate 71 72 Respiratory Rate 14 14 Blood Pressure 109/53 L Pulse Oximetry 100 100 Oxygen Delivery Method Oxygen Flow Rate 0 02/01/24 06:30 Temperature Pulse Rate Respiratory Rate Blood Pressure Pulse Oximetry Oxygen Delivery Method Mechanical Ventilation Oxygen Flow Rate Fraction of Inspired Oxygen 60 SaO2/FiO2 Ratio 265 Oxygen Delivery Method Mechanical Ventilation Oxygen Flow Rate 0 Narrative Exam Narrative: Intubated and sedated. NAD Lungs clear heart regular Abdomen ND, NT Legs free of edema. Cachectic. Objective Labs 02/01/24 03:45 02/01/24 03:45 Labs: Laboratory Results - last 24 hr 01/31/24 01/31/24 02/01/24 13:00 17:18 03:45 WBC 10.2 RBC 3.04 L Hgb 9.6 L Hct 30.4 L MCV 99.9 D MCH 31.7 MCHC 31.7 RDW 14.7 Plt Count 249 Neut % (Auto) 70.6 Lymph % (Auto) 18.5 L [place] % (Auto) 8.9 Eos % (Auto) 1.5 L Baso % (Auto) 0.5 Neut # (Auto) 7200 H Lymph # (Auto) 1900 [place] # (Auto) 900 Eos # (Auto) 200 Baso # (Auto) 100 Sodium 143 Potassium 4.3 3.3 L Chloride 110 H Carbon Dioxide 32 BUN 26 H Creatinine 1.11 Estimated GFR > 60 BUN/Creatinine Ratio 23.4 H Glucose 130 H Calcium 7.8 L Phosphorus 5.7 H D 3.9 H D Magnesium 1.8 2.1 Total Bilirubin 0.5 AST 49 ALT 20 Alkaline Phosphatase 167 H NT-Pro-B Natriuret Pep 5400 H Total Protein 5.0 L Albumin 2.2 L Globulin 2.8 Albumin/Globulin Ratio 0.8 L Triglycerides 86 Fluid Color Yellow Fluid Appearance Slightly cloudy Fluid RBC [id number] Fld Tot Nucleated Cell 212 Fluid Polynuclear WBCs 10 Fluid Mononuclear WBCs 90 Fluid Eosinophils Not Reportable Fluid Other Cells Not Reportable Body Fluid Clot No clots present [facility] Medical History Gout COPD (chronic obstructive pulmonary disease) Peripheral neuropathy Retinal detachment Peripheral vascular disease Essential hypertension (11/01/17) Pure hypercholesterolemia (04/24/16) Systolic congestive heart failure (04/24/16) Atrial fibrillation (04/24/16) Arterial embolism of left leg Surgical History Anesthesia History of surgery History of eye surgery History of cataract removal with insertion of prosthetic lens Family History Father History of heart disease Sister Cancer Social History household members: none Smoking Status: Former smoker alcohol intake: current Assessment & Plan Assessment & Plan narrative: # Sepsis with septic shock with MAGALYS, acute metabolic encephalopathy, and right aspiration pneumonia. Present on admission and active. - New infiltrates on CXR 01/26/24. - intubated on 4/2 PM for worsening respiratory status / failure. CT shows pneumonia w/ bilateral pleural effusions. - Ceftriaxone 1 gm Q24h, changed to Zosyn. Leukocytosis now resolved. - has been on intermittent levophed for soft BP. wean as tolerated with MAP >65. Requires more frequently with adequate sedation. - added fluconazole for possible yobany infection with budding yeast and pseudohyphae on sputum culture. 400 mg dosing given initially, continue 200 mg daily for 14 days for presumed thrush and possible candidal pneumonia. Follow up cultures. Also sent fungal culture with thoracentesis. - continue to hold home lisinopril - consulted pulmonology, did not recommend bronchoscopy, recommended diuresis first. Discussed with tele-civil transportation engineer today, thought benefits of thoracentesis for diagnosis and improvement in respiratory status outweigh risks. R Thoracentesis performed at bedside on 01/30, with 800 cc fluid removed. Sent for total protein, cell count, culture, cytology, and fungal culture. LDH or pH studies are not available for sendout at [facility]. - Abdominal CT shows subcutaneous air, I suspect these are from Lovenox injections possibly as there is no rash or evidence of necrotizing infection on his abdomen. He also has a very small stomach on CT, will start very slow with tube feeds initially. - start sedation vacations starting 01/31. Family does not want trach or PEG per advanced directives. # Acute hypoxic respiratory failure, likely aspiration pneumonia, Acute on chronic HFrEF with R pleural effusion. Present on admission and active. -the patient appears to have RLL aspiration pneumonia with acute deterioration on 01/26/2024 and is being treated for that. - possible volume overload component, will continue with diuresis, increased to TID today. May need increase with TPN. S/p Thoracentesis on 01/30 with 800 cc removed. -the patient has severe agitation from alcohol withdrawal complicating treatment of the hypoxic respiratory failure. -continued high-flow nasal cannula oxygen, but required intubation on 01/29/24. -echocardiogram without evidence of significant worsened cardiomyopathy. Ejection fraction is 45-55%. #Severe Chronic Protein Calorie Malnutrition. Present on admission and active. r/t to decreased energy intake and increased protein needs with CHF as evidenced by severe muscle wasting (temporalis, interosseous) and severe subcutaneous fat loss (buccal and orbital fat pads), <75% of estimated energy requirements for >1 month, BMI 20.6 (underweight for age), and substance abuse. -Started TPN 01/28 and will continue. Goal tube feeds are 45 cc per hour, will see if he tolerates 20 cc with his small stomach. Watch phos levels closely, high risk for refeeding syndrome. # Severe alcohol withdrawal with delirium, Present on admission and active. - Precedex drip, Phenobarbital increased dose and prn and Haldol. Does not respond well to Lorazepam. - Continue IV Thiamine and Folate. # Atrial Fibrillation, Persistent with RVR. Present on admission and active. - on lovenox now given no PO intake for anticoagulation. Held for thoracentesis 01/29. - difficulties with afib with RVR the last few days. Did receive amiodarone loading IV. consider either metoprolol IV, resumption of PO via feeding tube, or PO amiodarone depending on BP. # Acute on Chronic HFrEF, Present on admission and active. - Last LVEF was 30% via TTE in 2022. Now with EF of 45-55% - Continue home metoprolol XL, lisinopril, atorvastatin. Will resume some lasix to try and diurese. # Ambulatory Dysfunction, Present on admission and active. # Ground Level Fall, Present on admission and active. # Lower Extremity Weakness with history of T6 Compression Fracture, Present on admission and active. His fall was likely secondary to alcohol intoxication though does have bilateral weakness with T6 compression fracture. He could not tolerate the planned MR of T spine to make sure no spinal pathology and the Shoulder MR plan was also deferred. - Treat alcohol and hypomagnesemia as noted below. - PT/OT consulted and currently on hold - Given his lower extremity weakness and history of T6 compression fracture, tried to do a thoracic spine MRI to rule out acute issue, though he does not have other clinical signs of cord compression. -defer left shoulder MRI for now # Hypomagnesemia, Present on admission and improved. - Replace as needed, # Left Humeral Head Fracture. Present on admission and active. Mildly displaced per x-ray. - Continue sling. Non-operative with outpatient management for now, discussed with orthopedics whom recommended MRI for this patient for further evaluation for possible rotator cuff injury. - PRN Hydrocodone and IV Dilaudid while sedated. -shoulder MRI deferred for now as noted above. # Essential Hypertension, not active. - holding home medications #tobacco use and dependence. Present on admission and active. - nicotine patch Placement -[facility] and [facility] him when he is ready. Likely many more days Code Status: Full Code, surrogate is patient's daughter. DVT: on Eliquis normally, now on Lovenox BID 1mg / kg, held prior to thoracentesis but will resume. Dispo: Remains ICU. On Vent and pressors. PLAN: -sedation vacation today. -begin spontaneous breathing trials as able. -continue current medications. Time Spent With Patient Time with patient: 30 to 49 minutes with 50% spent counseling/coordinating care Quality VTE Deep Vein Thrombosis/Pulmonary Embolism Present on Admission: No
[2024-02-01] MEDS: POTASSIUM CHLORIDE IN WATER 10 MEQ/100 ML PIGGYBACK 100 MEQ IV ×4 (08:15→11:57)
[2024-02-01] MEDS: ENOXAPARIN 60 MG/0.6 ML SYRINGE SUBCUT ×2 (08:15→21:12)
[2024-02-01] MEDS: PANTOPRAZOLE 40 MG VIAL IV (08:16)
[2024-02-01] MEDS: FUROSEMIDE 40 MG/4 ML VIAL 20 MG IV ×3 (08:16→21:12)
[2024-02-01] MEDS: SODIUM CHLORIDE 0.9% FLUSH 10 ML IV ×2 (08:18→21:13)
--- NOTE | 2024-02-01 09:23 | PM.PN.EICU ---
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-leveler helper care: Yes Patient Location: ICU Provider location (State): [place] Other participants/roles: RN, RT Interval history: Remains intubated, on 30% fio2, peep 5 thora done yesterday - 800 cc removed, all diagnostics not yet back, but appears likely transudative effusion diuretics increased yesterday and patient having good UOP >2 L neg yesterday tube feeds started yesterday, tolerating thus far Current Medications Current Medications Medications: Home Medications lisinopril 10 mg tablet 5 mg (1/2 x 10 mg) PO BID #180 tabs 11/01/22 [Rx Confirmed 01/25/24] spironolactone 25 mg tablet 25 mg PO DAILY #90 tabs 02/06/23 [Rx Confirmed 01/25/24] metoprolol succinate 50 mg tablet,extended release 24 hr 50 mg PO BID #180 tabs 08/10/23 [Rx Confirmed 01/25/24] apixaban 2.5 mg tablet (Eliquis) 2.5 mg PO BID #60 tabs 08/27/23 [Rx Confirmed 01/25/24] atorvastatin 80 mg tablet 80 mg PO BEDTIME #30 tabs 10/24/23 [Rx Confirmed 01/25/24] furosemide 20 mg tablet 20 mg PO BID #180 tabs 11/12/23 [Rx Confirmed 01/25/24] Visit Medications (administered) Generic Name Dose Route Start Last Admin Trade Name Freq PRN Reason Stop Dose Admin Albuterol/Ipratropium 3 ml 01/30/24 02:01 01/30/24 02:57 Albuterol/Ipratropium 3 Ml Ampul INH 3 ml [id number] PRN Administration Shortness Of Breath Chlorhexidine Gluconate 15 ml 01/30/24 06:00 02/01/24 06:24 Chlorhexidine Gluconate 15 Ml Cup PO 15 ml Q6HR FRANKO Administration Enoxaparin Sodium 60 mg 01/27/24 10:30 02/01/24 08:15 Enoxaparin 60 Mg/0.6 Ml Syringe SUBCUT 60 mg BID FRANKO Administration Fentanyl 25 mcg 01/30/24 13:02 01/30/24 15:31 Fentanyl 100 Mcg/2 Ml Inj IV 25 mcg Q1H PRN Administration Pain, Severe (7-10) Furosemide 20 mg 01/31/24 15:00 02/01/24 08:16 Furosemide 40 Mg/4 Ml Vial IV 20 mg TID FRANKO Administration dexmedeTOMIDine in 0.9 % NaCL 400 mcg in 100 mls @ 2.903 mls/hr 01/26/24 19:30 02/01/24 04:00 Precedex IV 1 mcg/kg/hr TITRATE FRANKO 14.515 mls/hr Administration Protocol 0.2 MCG/KG/HR Propofol 1,000 mg in 100 mls @ 1.742 mls/hr 01/30/24 00:45 02/01/24 02:24 Propofol IV 30 mcg/kg/min TITRATE FRANKO 10.451 mls/hr Administration Protocol 5 MCG/KG/MIN Piperacillin Sod/Tazobactam 100 mls @ 25 mls/hr 01/30/24 14:00 02/01/24 06:24 Sod 3.375 gm/ Sodium Chloride IV 25 mls/hr Q8H FRANKO Administration NOREPINEPHRINE BITARTRATE/D5W 4 mg in 250 mls @ 21.773 mls/hr 01/30/24 17:30 01/31/24 22:30 Levophed IV 0.04 mcg/kg/min TITRATE FRANKO 8.709 mls/hr Titration Protocol 0.1 MCG/KG/MIN Fluconazole 200 mg in 100 mls @ 100 mls/hr 01/31/24 11:00 01/31/24 12:55 Diflucan IV 02/13/24 11:59 Infused Q24H FRANKO Infusion Multivitamins 10 ml/ Chromium/ 1,028 mls @ 42.842 mls/hr 01/31/24 18:00 01/31/24 17:52 Copper/Manganese/Seleni/Zn 1 IV 02/01/24 17:59 42.842 mls/hr ml/ Thiamine HCl 300 mg/ 1800 FRANKO Administration Potassium Chloride 20 meq/ Magnesium Sulfate 2 gm/ Amino Acids/Electrolytes POTASSIUM CHLORIDE IN WATER 10 meq in 100 mls @ 100 mls/hr 02/01/24 08:00 02/01/24 08:15 Potassium Cl 10 Meq/100 Ml [place] IV 02/01/24 11:59 100 mls/hr Q1H FRANKO Administration Nicotine 14 mg 01/25/24 12:45 01/31/24 07:39 Nicotine 14 Patch TOP Not Given DAILY FRANKO Ondansetron HCl 4 mg 01/24/24 22:11 01/26/24 18:06 Ondansetron 4 Mg/2 Ml Inj IV 4 mg Q6HR PRN Administration Nausea And Vomiting Pantoprazole Sodium 40 mg 01/30/24 09:00 02/01/24 08:16 Pantoprazole 40 Mg Vial IV 40 mg DAILY FRANKO Administration Sodium Chloride 10 ml 02/01/24 09:00 02/01/24 08:18 Sodium Chloride 0.9% Flush IV 10 ml BID FRANKO Administration Objective Ventilator Parameters: Ventilator Settings FiO2 30 CPAP Pressure Amount 14 RT Vent Frequency 14 Ventilator Tidal Volume 400 Exhaled Positive End Expiratory 5 Pressure Inspiratory Phase Time 0.9 I:E Ratio 1:2.7 Patient Position HOB >= 30 degrees Imaging Chest x-ray: Radiologist's impression: no PTX, ETT 4 cm above cameron small left pleural effusion OGT with side port in distal esophagus Venous US: Radiologist's impression: no Upper extremity DVT Labs 02/01/24 03:45 02/01/24 03:45 Labs: Laboratory Results - last 24 hr 01/31/24 01/31/24 02/01/24 13:00 17:18 03:45 WBC 10.2 RBC 3.04 L Hgb 9.6 L Hct 30.4 L MCV 99.9 D MCH 31.7 MCHC 31.7 RDW 14.7 Plt Count 249 Neut % (Auto) 70.6 Lymph % (Auto) 18.5 L [place] % (Auto) 8.9 Eos % (Auto) 1.5 L Baso % (Auto) 0.5 Neut # (Auto) 7200 H Lymph # (Auto) 1900 [place] # (Auto) 900 Eos # (Auto) 200 Baso # (Auto) 100 Sodium 143 Potassium 4.3 3.3 L Chloride 110 H Carbon Dioxide 32 BUN 26 H Creatinine 1.11 Estimated GFR > 60 BUN/Creatinine Ratio 23.4 H Glucose 130 H Calcium 7.8 L Phosphorus 5.7 H D 3.9 H D Magnesium 1.8 2.1 Total Bilirubin 0.5 AST 49 ALT 20 Alkaline Phosphatase 167 H NT-Pro-B Natriuret Pep 5400 H Total Protein 5.0 L Albumin 2.2 L Globulin 2.8 Albumin/Globulin Ratio 0.8 L Triglycerides 86 Fluid Color Yellow Fluid Appearance Slightly cloudy Fluid RBC [id number] Fld Tot Nucleated Cell 212 Fluid Polynuclear WBCs 10 Fluid Mononuclear WBCs 90 Fluid Eosinophils Not Reportable Fluid Other Cells Not Reportable Body Fluid Clot No clots present Exam Vital Signs (past 8 hours): - 02/01/24 01:30 02/01/24 01:30 02/01/24 01:45 Temperature Pulse Rate 73 Respiratory Rate 22 Blood Pressure 112/56 L 109/51 L Pulse Oximetry 100 Oxygen Delivery Method Oxygen Flow Rate 02/01/24 01:45 02/01/24 02:00 02/01/24 02:00 Temperature Pulse Rate 67 71 Respiratory Rate 22 20 Blood Pressure 103/52 L Pulse Oximetry 100 100 Oxygen Delivery Method Oxygen Flow Rate 0 02/01/24 02:15 02/01/24 02:15 02/01/24 02:30 Temperature Pulse Rate 67 79 Respiratory Rate 15 15 Blood Pressure 103/51 L Pulse Oximetry 100 99 Oxygen Delivery Method Oxygen Flow Rate 02/01/24 02:30 02/01/24 02:45 02/01/24 02:45 Temperature Pulse Rate 83 Respiratory Rate 15 Blood Pressure 106/53 L 99/53 L Pulse Oximetry 100 Oxygen Delivery Method Oxygen Flow Rate 02/01/24 03:00 02/01/24 03:00 02/01/24 03:15 Temperature Pulse Rate 79 75 Respiratory Rate 15 16 Blood Pressure 99/53 L Pulse Oximetry 100 100 Oxygen Delivery Method Oxygen Flow Rate 02/01/24 03:15 02/01/24 03:30 02/01/24 03:30 Temperature Pulse Rate 75 Respiratory Rate 14 Blood Pressure 105/52 L 113/53 L Pulse Oximetry 100 Oxygen Delivery Method Oxygen Flow Rate 0 02/01/24 03:45 02/01/24 03:45 02/01/24 04:00 Temperature 98.1 F Pulse Rate 74 79 Respiratory Rate 26 H 24 Blood Pressure 97/47 L Pulse Oximetry 100 100 Oxygen Delivery Method Oxygen Flow Rate 0 02/01/24 04:00 02/01/24 04:00 02/01/24 04:15 Temperature Pulse Rate 73 Respiratory Rate 24 Blood Pressure 105/53 L Pulse Oximetry 100 Oxygen Delivery Method Mechanical Ventilation Oxygen Flow Rate 02/01/24 04:15 02/01/24 04:30 02/01/24 04:30 Temperature Pulse Rate 78 Respiratory Rate 23 Blood Pressure 116/57 L 123/59 L Pulse Oximetry 100 Oxygen Delivery Method Oxygen Flow Rate 02/01/24 04:45 02/01/24 04:45 02/01/24 05:00 Temperature Pulse Rate 73 73 Respiratory Rate 23 23 Blood Pressure 115/56 L Pulse Oximetry 100 100 Oxygen Delivery Method Oxygen Flow Rate 0 02/01/24 05:00 02/01/24 05:15 02/01/24 05:15 Temperature Pulse Rate 75 Respiratory Rate 15 Blood Pressure 111/56 L 115/56 L Pulse Oximetry 100 Oxygen Delivery Method Oxygen Flow Rate 0 02/01/24 05:30 02/01/24 05:30 02/01/24 05:45 Temperature Pulse Rate 81 80 Respiratory Rate 15 15 Blood Pressure 108/57 L Pulse Oximetry 100 100 Oxygen Delivery Method Oxygen Flow Rate 02/01/24 05:45 02/01/24 06:00 02/01/24 06:00 Temperature Pulse Rate 71 Respiratory Rate 14 Blood Pressure 105/51 L 111/55 L Pulse Oximetry 100 Oxygen Delivery Method Oxygen Flow Rate 02/01/24 06:15 02/01/24 06:15 02/01/24 06:30 Temperature Pulse Rate 72 Respiratory Rate 14 Blood Pressure 109/53 L Pulse Oximetry 100 Oxygen Delivery Method Mechanical Ventilation Oxygen Flow Rate 0 02/01/24 06:30 02/01/24 06:30 02/01/24 06:45 Temperature Pulse Rate 74 78 Respiratory Rate 23 23 Blood Pressure 112/51 L Pulse Oximetry 100 98 Oxygen Delivery Method Oxygen Flow Rate 02/01/24 06:45 02/01/24 07:00 02/01/24 07:00 Temperature Pulse Rate 87 Respiratory Rate 26 H Blood Pressure 98/47 L 96/52 L Pulse Oximetry 97 Oxygen Delivery Method Oxygen Flow Rate 02/01/24 07:15 02/01/24 07:15 02/01/24 07:30 Temperature Pulse Rate 82 86 Respiratory Rate 24 24 Blood Pressure 97/50 L Pulse Oximetry 98 98 Oxygen Delivery Method Oxygen Flow Rate 02/01/24 07:30 02/01/24 07:45 02/01/24 07:45 Temperature 98.2 F Pulse Rate 76 Respiratory Rate 23 Blood Pressure 102/51 L 105/53 L 105/53 L Pulse Oximetry 99 Oxygen Delivery Method Oxygen Flow Rate Narrative Exam Narrative: intubated, sedated, chronically ill appearing Quality TeleICU VTE Deep Vein Thrombosis/Pulmonary Embolism Present on Admission: No Assessment & Plan Assessment and plan (1) Pleural effusion: Problem details: Bilateral moderate effusions most likely reflecting volume overload in patient with poor underlying health and CHF. Status: Acute (2) Heart failure with reduced ejection fraction: Problem details: As above, increase diuresis. 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 - Alcohol dependence with other alcohol-induced disorder Status: Acute (5) Metabolic encephalopathy: Status: Acute (6) Atrial fibrillation: Qualifiers: Atrial fibrillation type: paroxysmal Qualified Code(s): I48.0 - Paroxysmal atrial fibrillation Status: Chronic Assessment & Plan narrative: NEURO: # 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, folic acid, and MTV -- remains on precedex gtt, propofol gtt for sedation on vent -- RASS goal 0 to -1 -- DAILY SAT- with goal of extubating when mental status improves RESP: # Acute hypoxemia respiratory failure -- Secondary to aspiration PNA and pulmonary edema/chf --chest ct showing bilatreal pna c/f aspiration plus bilateral pleural effusion -- continue diuresis and abx -- vent/sedation bundle -- trend abg -- fio2 needs at 30% today, secretions improved -- thora done 01/30, 800 cc removed, likely transudative c/w CHF. awaiting cultures -- plan for pressure support trial today CVS: # A fib w/ RVR - improved, rate controlled -- Secondary to hypoxemia and holiday heart syndrome -- can start metop once off pressors -- High lytes goal -- On eliquis PRODUCTION SORTER, now on lovenox sq bid, can transition back to PO eliquis when more stable, reliably tolerating PO -- Goal HR < 110 # CHF -- continue lasix 20 mg TID for now, yesterday finally achieved a net neg fluid balance -- BNP >5000 -- Strict I/O,, valdivia -- goal diuresis -500-1 L net neg daily -- trend CR -- replace lytes : -- High lytes goal -- Monitor UOP as above ID: # Aspiration PNA -- follow blood cx -- follow resp cx - yeast so far -- on zosyn, diflucan ENDO: -- Goal BS < 180 FEN - tolerated trickle feeds yesterday plan to replace OGT to dobhoff feeding tube if within GOC- post pyloric prefereable and we would be able to leave NGT in even after extubating. OGT will come out with ETT advance feeds today as tolerated trend k, mg, phos would d/c TPN given infection risks Has Gi and DVT ppx Full code, GOC discussions ongoing total cct 35 min D/w bedside RN. Time Spent With Patient Time with patient: 30 to 49 minutes with 50% spent counseling/coordinating care
[2024-02-01] MEDS: propofoL 1,000 MG/100 ML VIAL 6.967 MG IV ×2 (10:34→21:16)
[2024-02-01] MEDS: dexmedeTOMIDine in 0.9 % NaCL 400 MCG/100 ML PLAST..BAG 11.612 MCG IV (10:35)
[2024-02-01] MEDS: FLUCONAZOLE 200 MG/100 ML PIGGYBACK 100 MG IV (10:52)
--- NOTE | 2024-02-01 10:58 | DIET.CONS2 ---
Dietary Inpatient Consultation Note Admission Date: 01/24/2024 21:04 Spoke with pharmacist and RN. TF can be increased to 20 mL/hr tonight at 1700. Enteral feedings will then be meeting 60% of patients estimated energy and protein needs. Tele-ICU hospitialist recc d/c TPN to reduce risk of infection. Nutrition Intervention: 1. Recc advancing enteral feedings of Pivot 1.5 via OG tube to 20 ml/hr this evening. Rate may be increased 5-10 mL/hr q12h if not showing signs for refeeding syndrome. Goal feeding is continuous enteral feeding via OG tube of Pivot 1.5 at 40 mL/hr to provide 1715 kcals with propofol at 30 mcg/kg/min, 90 g protein, 166 g of carbs, and 730 mL of feed water. 2. Recc d/c Clinimix 5/20 when pt reaches 20 ml/hr of Pivot 1.5. 3. Recc monitoring refeeding labs (K+, Mg, phos) per protocol. Diet: 01/31/24 Dinner Tube Feeding Diet Diet Modifications: TF Supplement type: Pivot 1.5 [place] TF mode of delivery: Continuous Starting flow rate mL/hr: 10 Flow rate goal mL/hr: 20 Titration Schedule to reach Goal Rate: advance 5 ml/hr q12 hr Max total daily volume in mL: 500 Free fluid: 50 Free Water Frequency: Q6H Electronically Signed by: Fely Wallace 02/01/24 10:58 Clinical Dietitian [address] [id number]
[2024-02-01] MEDS: NOREPINEPHRINE BITARTRATE/D5W 4 MG/250 ML PLAST..BAG 8.709 MG IV (13:05)
--- NOTE | 2024-02-01 13:27 | PC.NURSE ---
Addendum entered by Tiesha Kelly R.N. 02/01/24 18:59: Spoke with tele-ICU provider around 1800 to give provider an update. Dobhoff stylet was unable to be removed safely and seemed to be stuck - hospitalist said to remove Dobhoff. RN did not attempt to reinsert due to hemodynamic instability, increased vasopressors and HR sustaining 110s-130s. Per previous conversation and dietary order, increased tube feeds to 20ml/hr and discontinued TPN. Reported afternoon electrolytes to provider. Provider said to increase precedex for Afib RVR rate. Addendum entered by Tiesha Kelly R.N. 02/01/24 16:04: After the dobhoff placement, pt went into Afib RVR rates up to 190s. BP MAP dropped into low 60s. RN Notified physician, and gave ordered metoprolol 3 doses and titrated levo up maintain MAP >65. After 3 doses IV Metoprolol, HR 100s-110s. Addendum entered by Tiesha Kelly R.N. 02/01/24 14:04: Spoke with bag making machine tender, who said to turn tube feeds up to 20ml/hr and turn off TPN at 1700. Employee Benefits Administrator aware tube feeds currently at 10. Employee Benefits Administrator said to increase tube feeds at tolerated 5ml Q12H to goal of 40ml/hr. Hospitalist was included in conversation, hospitalist aware that new restraint order needed at 1700. Pt currently making small movements to fingers with commands and raising eyebrows to commands. Original Note: Throughout mid-morning, early afternoon, called tele-ICU phone 4 times to try to reach provider. Left 2 messages with return contact number and have not heard back. Trying to reach tele-ICU provider for Dobhoff order and care plan/patient update, due to Dobhoff being discussed in am rounds. Prior to calling tele-ICU number, spoke with family member Ros and was able to receive verbal consent for Dobhoff. Also tried reaching bag making machine tender to confirm increasing tube feeds to 20ml/hr at 1700 as reflected in note, not previous order of 15ml/hr at 1700. Message left with return call back number. RN and PCT performing Q2 turns, pt bridged with heels floated, protective foam bandage applied to sacrum. Full CHG bath performed; Dodd care performed.
--- NOTE | 2024-02-01 14:39 | DI.RAD.S_ITS ---
PROCEDURE: XR KUB INDICATIONS: check for feeding tube placement TECHNIQUE: One view of the abdomen acquired. COMPARISON: [facility], CR, XR CHEST 1V, 02/01/2024, 14:49. [facility], CR, XR CHEST 1V, 01/24/2024, 17:12. [facility], CR, XR KUB, 01/30/2024, 0:56. FINDINGS: Surgical changes and devices: Esophagogastric tube and weighted tip feeding tube both extend into the gastric body. Bowel: Bowel gas pattern is normal. Soft tissues: No suspicious abdominal calcifications. Visualized solid organ contours appear normal in size. Note is made of a persistent subpulmonic small left pleural effusion. Bones: No suspicious bony lesions. IMPRESSION: Weighted tip feeding tube has been introduced, and extends to the junction of the gastric body and antrum as is the case for the previously present esophagogastric tube. Stable small subpulmonic left pleural effusion not present in this patient 01/27/24. Dictated by: Bob Belcher M.D. on 02/01/2024 at 15:11 Approved by: Bob Belcher M.D. on 02/01/2024 at 15:14
--- NOTE | 2024-02-01 15:03 | DI.RAD.S_ITS ---
PROCEDURE: XR CHEST 1V INDICATIONS: previous aspiration TECHNIQUE: One view of the chest was acquired. COMPARISON: [facility], CR, XR CHEST 1V, 01/31/2024, 18:22. [facility], CR, XR CHEST 1V, 01/31/2024, 12:59. FINDINGS: Surgical changes and devices: PICC line from right-sided approach extends into the distal SVC. Endotracheal tube extends to approximately 2 cm above the cameron. A weighted tip feeding tube extends below the imaging margin as was previously seen. An esophagogastric tube extends parallel, also below the imaging margin. Lungs and pleura: Lungs are mildly edematous. Small subpulmonic left pleural effusion stable, no pneumothorax. Mediastinum: Mediastinal contours appear normal. Heart size is normal. Bones and chest wall: No suspicious bony lesions. Overlying soft tissues appear unremarkable. IMPRESSION: Alveolar edema pattern, subpulmonic left pleural effusion stable. Lines and tubes appear in normal position. Dictated by: Bob Belcher M.D. on 02/01/2024 at 15:16 Approved by: Bob Belcher M.D. on 02/01/2024 at 15:20
--- NOTE | 2024-02-01 15:05 | CM.DPC ---
DCP Cont: Per MD, pt remains intubated today and Dobhoff placed to switch to tube feeding from TPN and attempted a sedation vacation today to determine if pt able to tolerate weaning trial for extubation. Pt had thoracentesis bedside yesterday and sent to lab for cultures. As of 1500, pt not yet stable for extubation attempt at this time. Family has been bedside this morning. [facility] continues to follow for extubation and ongoing therapies towards determining if pt will be agreeable to SNF and that [facility] can still accept. [facility] auth will be needed. PASRR completed in anticipation of SNF. Plan: SW to follow closely for successful extubation and then when pt more medically appropriate to participate in discharge discussion to confirm pt agreeable to SNF at d/c. SW to keep [facility] [place] updated and [facility] auth needed if SNF. JOSE RAMON Black
[2024-02-01] MEDS: ALBUTEROL/IPRATROPIUM 3 ML AMPUL INH (15:16)
[2024-02-01] MEDS: METOPROLOL TARTRATE 5 MG/5 ML INJ IV ×3 (15:41→15:54)
[2024-02-01 17:36] LABS: HEMOLYSIS < 15 (0-50); Magnesium 2.3 mg/dL (1.6-2.3); Phosphorous 4.1 mg/dL (2.3-3.7); Potassium 3.9 mmol/L (3.4-5.1)
[2024-02-01 17:53] LABS: Procalcitonin 0.27 ng/mL (<0.5)
[2024-02-02] VITALS (109 sets, daily range): BP systolic 73–162; BP diastolic 40–95; PULSE 73–149; RESP 14–39; TEMP 36.7–37.7; O2SAT 90–100
[2024-02-02] MEDS: dexmedeTOMIDine in 0.9 % NaCL 400 MCG/100 ML PLAST..BAG 17.418 MCG IV ×2 (00:31→06:22)
[2024-02-02 05:00] LABS: Add Manual Diff / Slide Review NO; Basophils Absolute Auto 0 /uL (0-100); Basophils Percent Auto 0.4 % (0-2); Eosinophils Absolute Auto 100 /uL (0-450); Eosinophils Percent Auto 0.6 % (2-4); Hematocrit 30.3 % (41-53); Hemoglobin 9.9 g/dL (13.5-17.5); Lymphocytes Absolute Auto 2400 /uL (1100-4500); Lymphocytes Percent Auto 18.6 % (25-40); Mean Corpuscular HGB Conc 32.8 % (30-36); Mean Corpuscular Hemoglobin 30.7 PG (26-34); Mean Corpuscular Volume 93.5 fL (80-100); Monocytes Absolute Auto 1000 /uL (0-900); Neutrophils Absolute Auto 9200 /uL (1500-7000); Neutrophils Percent Auto 72.4 % (50-75); Platelet Count 316 X10^3/uL (150-400); Red Blood Cell Count 3.24 X10^6/uL (4.5-5.9); White Blood Cell Count 12.8 X10^3/uL (4.5-11.0)
[2024-02-02 05:14] LABS: Alanine Aminotransferase 33 IU/L (<50); Albumin 2.4 g/dL (3.5-5.0); Albumin Globulin Ratio 0.8 (1.0-2.8); Alkaline Phosphatase 264 U/L (38-126); Aspartate Aminotransferase 83 IU/L (17-59); BUN Creatinine Ratio 26.6 (6-22); Bilirubin Total 0.5 mg/dL (0.2-1.3); Blood Urea Nitrogen 33 mg/dL (9-20); Carbon Dioxide 32 mmol/L (22-32); Chloride 107 mmol/L (98-107); Estimated Glomerular Filt Rate 59 mL/min (>60); Globulin 3.1 g/dL (1.7-4.1); Glucose 130 mg/dL (80-110); HEMOLYSIS < 15 (0-50); Magnesium 2.3 mg/dL (1.6-2.3); Phosphorous 4.6 mg/dL (2.3-3.7); Sodium 139 mmol/L (137-145); Total Protein 5.5 g/dL (6.3-8.2)
[2024-02-02 05:21] LABS: NT-proBNP (BNP-Adult 18+) 3240 pg/mL (<450)
[2024-02-02] MEDS: NOREPINEPHRINE BITARTRATE/D5W 4 MG/250 ML PLAST..BAG 17.418 MG IV (05:22)
[2024-02-02] MEDS: ALBUTEROL/IPRATROPIUM 3 ML AMPUL INH ×3 (05:38→19:45)
[2024-02-02] MEDS: CHLORHEXIDINE GLUCONATE 15 ML CUP PO ×3 (05:43→18:08)
[2024-02-02] MEDS: PIPERACILLIN/TAZO 3.375 GM in SODIUM CHLORIDE 0.9% 100 ML IV ×2 (05:44→14:32)
[2024-02-02] MEDS: SODIUM CHLORIDE 0.9% FLUSH 10 ML IV ×3 (05:46→20:32)
--- NOTE | 2024-02-02 06:27 | P.TELICUPN_ITS ---
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-accounting policy consultant care: Yes Patient Location: ICU Provider location (State): [place] Other participants/roles: RN Interval history: Remains intubated, on 30%, but actually tolerating 21% with no desat- -200 cc neg yesterday with diuretics. Cr slightly up, BNP continues to decrease HR sustaining tachy this am- reportedly SR, 12 lead EKG ordered albumin bolus ordered, will change low dose levo gtt to phenylephrine gtt and see if tolerates better unable to place NGT successfully yesterday continues to be fed via OGT, tolerating feeds Current Medications Current Medications Medications: Home Medications lisinopril 10 mg tablet 5 mg (1/2 x 10 mg) PO BID #180 tabs 11/01/22 [Rx Confirmed 01/25/24] spironolactone 25 mg tablet 25 mg PO DAILY #90 tabs 02/06/23 [Rx Confirmed 01/25/24] metoprolol succinate 50 mg tablet,extended release 24 hr 50 mg PO BID #180 tabs 08/10/23 [Rx Confirmed 01/25/24] apixaban 2.5 mg tablet (Eliquis) 2.5 mg PO BID #60 tabs 08/27/23 [Rx Confirmed 01/25/24] atorvastatin 80 mg tablet 80 mg PO BEDTIME #30 tabs 10/24/23 [Rx Confirmed 01/25/24] furosemide 20 mg tablet 20 mg PO BID #180 tabs 11/12/23 [Rx Confirmed 01/25/24] Visit Medications (administered) Generic Name Dose Route Start Last Admin Trade Name Freq PRN Reason Stop Dose Admin Albuterol/Ipratropium 3 ml 01/30/24 02:01 02/02/24 05:38 Albuterol/Ipratropium 3 Ml Ampul INH 3 ml RTQ4HR PRN Administration Shortness Of Breath Chlorhexidine Gluconate 15 ml 01/30/24 06:00 02/02/24 05:43 Chlorhexidine Gluconate 15 Ml Cup PO 15 ml Q6HR FRANKO Administration Enoxaparin Sodium 60 mg 01/27/24 10:30 02/01/24 21:12 Enoxaparin 60 Mg/0.6 Ml Syringe SUBCUT 60 mg BID FRANKO Administration Fentanyl 25 mcg 01/30/24 13:02 01/30/24 15:31 Fentanyl 100 Mcg/2 Ml Inj IV 25 mcg Q1H PRN Administration Pain, Severe (7-10) Furosemide 20 mg 01/31/24 15:00 02/01/24 21:12 Furosemide 40 Mg/4 Ml Vial IV 20 mg TID FRANKO Administration dexmedeTOMIDine in 0.9 % NaCL 400 mcg in 100 mls @ 2.903 mls/hr 01/26/24 19:30 02/02/24 06:22 Precedex IV 1.2 mcg/kg/hr TITRATE FRANKO 17.418 mls/hr Administration Protocol 0.2 MCG/KG/HR Propofol 1,000 mg in 100 mls @ 1.742 mls/hr 01/30/24 00:45 02/01/24 21:16 Propofol IV 20 mcg/kg/min TITRATE FRANKO 6.967 mls/hr Administration Protocol 5 MCG/KG/MIN Piperacillin Sod/Tazobactam 100 mls @ 25 mls/hr 01/30/24 14:00 02/02/24 05:44 Sod 3.375 gm/ Sodium Chloride IV 25 mls/hr Q8H FRANKO Administration NOREPINEPHRINE BITARTRATE/D5W 4 mg in 250 mls @ 21.773 mls/hr 01/30/24 17:30 02/02/24 05:22 Levophed IV 0.08 mcg/kg/min TITRATE FRANKO 17.418 mls/hr Administration Protocol 0.1 MCG/KG/MIN Fluconazole 200 mg in 100 mls @ 100 mls/hr 01/31/24 11:00 02/01/24 13:05 Diflucan IV 02/13/24 11:59 Infused Q24H FRANKO Infusion Nicotine 14 mg 01/25/24 12:45 02/01/24 09:51 Nicotine 14 Patch TOP Not Given DAILY FRANKO Ondansetron HCl 4 mg 01/24/24 22:11 01/26/24 18:06 Ondansetron 4 Mg/2 Ml Inj IV 4 mg Q6HR PRN Administration Nausea And Vomiting Pantoprazole Sodium 40 mg 01/30/24 09:00 02/01/24 08:16 Pantoprazole 40 Mg Vial IV 40 mg DAILY FRANKO Administration Sodium Chloride 10 ml 02/01/24 00:28 02/02/24 05:46 Sodium Chloride 0.9% Flush IV 10 ml PRN PRN Administration Flush Sodium Chloride 10 ml 02/01/24 09:00 02/01/24 21:13 Sodium Chloride 0.9% Flush IV 10 ml BID FRANKO Administration Objective Ventilator Parameters: Ventilator Settings FiO2 30 CPAP Pressure Amount 14 RT Vent Frequency 14 Ventilator Tidal Volume 400 Exhaled Positive End Expiratory 5 Pressure Inspiratory Phase Time 0.9 I:E Ratio 1:3.1 Patient Position HOB >= 30 degrees Imaging Chest x-ray: Radiologist's impression: 4/5- alveolar edema pattern lines and tubes in good position- ETT, PICC, OGT Labs 02/02/24 04:35 02/02/24 04:35 Labs: Laboratory Results - last 24 hr 01/31/24 01/31/24 01/31/24 09:13 13:28 13:28 WBC RBC Hgb Hct MCV MCH MCHC RDW Plt Count Neut % (Auto) Lymph % (Auto) [place] % (Auto) Eos % (Auto) Baso % (Auto) Neut # (Auto) Lymph # (Auto) [place] # (Auto) Eos # (Auto) Baso # (Auto) Sodium Potassium Chloride Carbon Dioxide BUN Creatinine Estimated GFR BUN/Creatinine Ratio Glucose Calcium Phosphorus Magnesium Total Bilirubin AST ALT Alkaline Phosphatase NT-Pro-B Natriuret Pep Total Protein Albumin Globulin Albumin/Globulin Ratio Procalcitonin Ref Test (Refrig) Comment Comment Comment 01/31/24 02/01/24 02/02/24 13:28 17:05 04:35 WBC 12.8 H RBC 3.24 L Hgb 9.9 L Hct 30.3 L MCV 93.5 D MCH 30.7 MCHC 32.8 RDW 14.0 Plt Count 316 Neut % (Auto) 72.4 Lymph % (Auto) 18.6 L [place] % (Auto) 8.0 Eos % (Auto) 0.6 L Baso % (Auto) 0.4 Neut # (Auto) 9200 H Lymph # (Auto) 2400 [place] # (Auto) 1000 H Eos # (Auto) 100 Baso # (Auto) 0 Sodium 139 Potassium 3.9 4.0 Chloride 107 Carbon Dioxide 32 BUN 33 H Creatinine 1.24 Estimated GFR 59 L BUN/Creatinine Ratio 26.6 H Glucose 130 H Calcium 8.0 L Phosphorus 4.1 H 4.6 H Magnesium 2.3 2.3 Total Bilirubin 0.5 AST 83 H ALT 33 Alkaline Phosphatase 264 H D NT-Pro-B Natriuret Pep 3240 H Total Protein 5.5 L Albumin 2.4 L Globulin 3.1 Albumin/Globulin Ratio 0.8 L Procalcitonin 0.27 Ref Test (Refrig) Comment Exam Vital Signs (past 8 hours): - 02/01/24 22:30 02/01/24 22:30 02/01/24 22:45 Temperature Pulse Rate 104 H Respiratory Rate 16 Blood Pressure 112/52 L 102/58 L Pulse Oximetry 100 Oxygen Delivery Method Oxygen Flow Rate 02/01/24 22:45 02/01/24 23:00 02/01/24 23:00 Temperature Pulse Rate 102 H 92 H Respiratory Rate 16 16 Blood Pressure 106/53 L Pulse Oximetry 100 100 Oxygen Delivery Method Oxygen Flow Rate 02/01/24 23:15 02/01/24 23:15 02/01/24 23:30 Temperature Pulse Rate 104 H 96 H Respiratory Rate 16 16 Blood Pressure 106/55 L Pulse Oximetry 100 100 Oxygen Delivery Method Oxygen Flow Rate 0 02/01/24 23:30 02/01/24 23:45 02/01/24 23:45 Temperature Pulse Rate 96 H Respiratory Rate 16 Blood Pressure 117/55 L 105/53 L Pulse Oximetry 100 Oxygen Delivery Method Oxygen Flow Rate 02/02/24 00:00 02/02/24 00:00 02/02/24 00:00 Temperature 99.9 F H Pulse Rate 102 H Respiratory Rate 16 Blood Pressure 101/56 L Pulse Oximetry 100 Oxygen Delivery Method Mechanical Ventilation Oxygen Flow Rate 0 02/02/24 00:15 02/02/24 00:15 02/02/24 00:30 Temperature Pulse Rate 95 H 101 H Respiratory Rate 16 16 Blood Pressure 105/53 L Pulse Oximetry 100 100 Oxygen Delivery Method Oxygen Flow Rate 02/02/24 00:30 02/02/24 00:45 02/02/24 00:45 Temperature Pulse Rate 100 H Respiratory Rate 16 Blood Pressure 96/50 L 99/52 L Pulse Oximetry 100 Oxygen Delivery Method Oxygen Flow Rate 02/02/24 01:00 02/02/24 01:00 02/02/24 01:15 Temperature 98.1 F Pulse Rate 99 H 92 H Respiratory Rate 16 16 Blood Pressure 102/50 L Pulse Oximetry 100 100 Oxygen Delivery Method Oxygen Flow Rate 02/02/24 01:15 02/02/24 01:30 02/02/24 01:30 Temperature Pulse Rate 93 H Respiratory Rate 16 Blood Pressure 112/55 L 113/56 L Pulse Oximetry 100 Oxygen Delivery Method Oxygen Flow Rate 0 02/02/24 01:45 02/02/24 01:45 02/02/24 02:00 Temperature Pulse Rate 93 H Respiratory Rate 16 Blood Pressure 104/51 L 115/58 L Pulse Oximetry 100 Oxygen Delivery Method Oxygen Flow Rate 02/02/24 02:00 02/02/24 02:15 02/02/24 02:15 Temperature Pulse Rate 95 H 91 H Respiratory Rate 16 16 Blood Pressure 123/57 L Pulse Oximetry 100 100 Oxygen Delivery Method Oxygen Flow Rate 0 02/02/24 02:30 02/02/24 02:30 02/02/24 02:45 Temperature Pulse Rate 79 86 Respiratory Rate 16 16 Blood Pressure 120/56 L Pulse Oximetry 100 100 Oxygen Delivery Method Oxygen Flow Rate 02/02/24 02:45 02/02/24 03:00 02/02/24 03:00 Temperature Pulse Rate 87 Respiratory Rate 16 Blood Pressure 121/56 L 98/50 L Pulse Oximetry 100 Oxygen Delivery Method Oxygen Flow Rate 0 02/02/24 03:15 02/02/24 03:15 02/02/24 03:30 Temperature Pulse Rate 82 80 Respiratory Rate 16 16 Blood Pressure 131/58 L Pulse Oximetry 100 100 Oxygen Delivery Method Oxygen Flow Rate 02/02/24 03:30 02/02/24 03:45 02/02/24 03:45 Temperature Pulse Rate 90 Respiratory Rate 16 Blood Pressure 118/58 L 108/56 L Pulse Oximetry 97 Oxygen Delivery Method Oxygen Flow Rate 02/02/24 04:00 02/02/24 04:00 02/02/24 04:00 Temperature 98.6 F Pulse Rate 88 Respiratory Rate 16 Blood Pressure 102/49 L Pulse Oximetry 97 Oxygen Delivery Method Mechanical Ventilation Oxygen Flow Rate 0 02/02/24 04:15 02/02/24 04:15 02/02/24 04:30 Temperature Pulse Rate 98 H Respiratory Rate 16 Blood Pressure 96/55 L 105/55 L Pulse Oximetry 97 Oxygen Delivery Method Oxygen Flow Rate 02/02/24 04:30 02/02/24 04:45 02/02/24 04:45 Temperature Pulse Rate 93 H 91 H Respiratory Rate 16 16 Blood Pressure 101/50 L Pulse Oximetry 98 99 Oxygen Delivery Method Oxygen Flow Rate 02/02/24 05:00 02/02/24 05:00 02/02/24 05:15 Temperature Pulse Rate 82 Respiratory Rate 16 Blood Pressure 119/58 L 116/58 L Pulse Oximetry 99 Oxygen Delivery Method Oxygen Flow Rate 0 02/02/24 05:15 02/02/24 05:30 02/02/24 05:30 Temperature Pulse Rate 79 74 Respiratory Rate 16 16 Blood Pressure 123/60 Pulse Oximetry 99 98 Oxygen Delivery Method Oxygen Flow Rate 02/02/24 05:38 02/02/24 05:45 02/02/24 05:45 Temperature Pulse Rate 79 79 Respiratory Rate 15 16 Blood Pressure 122/57 L Pulse Oximetry 96 96 Oxygen Delivery Method Mechanical Ventilation Oxygen Flow Rate 02/02/24 06:00 02/02/24 06:00 02/02/24 06:15 Temperature Pulse Rate 102 H Respiratory Rate 16 Blood Pressure 125/57 L 96/46 L Pulse Oximetry 95 Oxygen Delivery Method Oxygen Flow Rate 02/02/24 06:15 Temperature Pulse Rate 132 H Respiratory Rate 16 Blood Pressure Pulse Oximetry 99 Oxygen Delivery Method Oxygen Flow Rate 0 Narrative Exam Narrative: lying in bed, intubated, sedated, chronically ill appearing. Quality TeleICU VTE Deep Vein Thrombosis/Pulmonary Embolism Present on Admission: No Assessment & Plan Assessment and plan (1) Pleural effusion: Problem details: Bilateral moderate effusions most likely reflecting volume overload in patient with poor underlying health and CHF. Status: Acute (2) Heart failure with reduced ejection fraction: Problem details: As above, increase diuresis. 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 fentanyl iv prn for pain -- RASS goal 0 to -1 -- DAILY SAT- with goal of extubating when mental status improves RESP: # Acute hypoxemic respiratory failure- resolving -- Secondary to aspiration PNA and pulmonary edema/chf --chest ct showing bilatreal pna c/f aspiration plus bilateral pleural effusion -- cxr 01/31 showing only aoveolar edema -- continue diuresis and abx -- vent/sedation bundle -- trend abg -- fio2 needs at 30% today, secretions improved -- thora done 01/30, 800 cc removed, likely transudative c/w CHF. 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, can transition back to PO eliquis when more stable, reliably tolerating PO -- Goal HR < 110 # CHF -- continue lasix 20 mg TID for now, for even to slightly neg fluid balance, yesterday was -200 cc -- BNP continues to dowtrend -- Strict I/O,, valdivia -- trend CR- 1.24 today, if up again tomorrow can hold diuresis -- replace lytes : -- High lytes goal -- Monitor UOP as above ID: # Aspiration PNA -- follow blood cx - ngtd -- follow resp cx - yeast -- resp cultures repeated today- -- procalcitonin neg -- on zosyn, diflucan ENDO: -- Goal BS < 180 FEN - tolerating slow advancement of feeds ngt attempted yesterday, not successful, will continue OGT for now trend k, mg, phos would d/c TPN given infection risks MSK- has left humeral head fracture- POA, in sling. will need MRI to r/o rotator cuff tear. ortho has been consulted Has Gi and DVT ppx Full code, GOC discussions ongoing total cct 35 min D/w bedside RN. Time Spent With Patient Time with patient: 30 to 49 minutes with 50% spent counseling/coordinating care
[2024-02-02] MEDS: PHENYLEPHRINE 20,000 MCG in DEXTROSE 5% IN WATER 250 ML 75 MCG IV (06:52)
[2024-02-02] MEDS: ALBUMIN HUMAN 25 GM/100 ML VIAL IV (07:01)
--- NOTE | 2024-02-02 08:05 | P.PN_ITS ---
Subjective Subjective Interval history: Narrative not obtainable, he is intubated. Slow to wake up on sedation weaning. Exam Vital Signs (past 8 hours): - 02/02/24 00:15 02/02/24 00:15 02/02/24 00:30 Temperature Pulse Rate 95 H 101 H Respiratory Rate 16 16 Blood Pressure 105/53 L Pulse Oximetry 100 100 Oxygen Delivery Method Oxygen Flow Rate 02/02/24 00:30 02/02/24 00:45 02/02/24 00:45 Temperature Pulse Rate 100 H Respiratory Rate 16 Blood Pressure 96/50 L 99/52 L Pulse Oximetry 100 Oxygen Delivery Method Oxygen Flow Rate 02/02/24 01:00 02/02/24 01:00 02/02/24 01:15 Temperature 98.1 F Pulse Rate 99 H 92 H Respiratory Rate 16 16 Blood Pressure 102/50 L Pulse Oximetry 100 100 Oxygen Delivery Method Oxygen Flow Rate 02/02/24 01:15 02/02/24 01:30 02/02/24 01:30 Temperature Pulse Rate 93 H Respiratory Rate 16 Blood Pressure 112/55 L 113/56 L Pulse Oximetry 100 Oxygen Delivery Method Oxygen Flow Rate 0 02/02/24 01:45 02/02/24 01:45 02/02/24 02:00 Temperature Pulse Rate 93 H Respiratory Rate 16 Blood Pressure 104/51 L 115/58 L Pulse Oximetry 100 Oxygen Delivery Method Oxygen Flow Rate 02/02/24 02:00 02/02/24 02:15 02/02/24 02:15 Temperature Pulse Rate 95 H 91 H Respiratory Rate 16 16 Blood Pressure 123/57 L Pulse Oximetry 100 100 Oxygen Delivery Method Oxygen Flow Rate 0 02/02/24 02:30 02/02/24 02:30 02/02/24 02:45 Temperature Pulse Rate 79 86 Respiratory Rate 16 16 Blood Pressure 120/56 L Pulse Oximetry 100 100 Oxygen Delivery Method Oxygen Flow Rate 02/02/24 02:45 02/02/24 03:00 02/02/24 03:00 Temperature Pulse Rate 87 Respiratory Rate 16 Blood Pressure 121/56 L 98/50 L Pulse Oximetry 100 Oxygen Delivery Method Oxygen Flow Rate 0 02/02/24 03:15 02/02/24 03:15 02/02/24 03:30 Temperature Pulse Rate 82 80 Respiratory Rate 16 16 Blood Pressure 131/58 L Pulse Oximetry 100 100 Oxygen Delivery Method Oxygen Flow Rate 02/02/24 03:30 02/02/24 03:45 02/02/24 03:45 Temperature Pulse Rate 90 Respiratory Rate 16 Blood Pressure 118/58 L 108/56 L Pulse Oximetry 97 Oxygen Delivery Method Oxygen Flow Rate 02/02/24 04:00 02/02/24 04:00 02/02/24 04:00 Temperature 98.6 F Pulse Rate 88 Respiratory Rate 16 Blood Pressure 102/49 L Pulse Oximetry 97 Oxygen Delivery Method Mechanical Ventilation Oxygen Flow Rate 0 02/02/24 04:15 02/02/24 04:15 02/02/24 04:30 Temperature Pulse Rate 98 H Respiratory Rate 16 Blood Pressure 96/55 L 105/55 L Pulse Oximetry 97 Oxygen Delivery Method Oxygen Flow Rate 02/02/24 04:30 02/02/24 04:45 02/02/24 04:45 Temperature Pulse Rate 93 H 91 H Respiratory Rate 16 16 Blood Pressure 101/50 L Pulse Oximetry 98 99 Oxygen Delivery Method Oxygen Flow Rate 02/02/24 05:00 02/02/24 05:00 02/02/24 05:15 Temperature Pulse Rate 82 Respiratory Rate 16 Blood Pressure 119/58 L 116/58 L Pulse Oximetry 99 Oxygen Delivery Method Oxygen Flow Rate 0 02/02/24 05:15 02/02/24 05:30 02/02/24 05:30 Temperature Pulse Rate 79 74 Respiratory Rate 16 16 Blood Pressure 123/60 Pulse Oximetry 99 98 Oxygen Delivery Method Oxygen Flow Rate 02/02/24 05:38 02/02/24 05:45 02/02/24 05:45 Temperature Pulse Rate 79 79 Respiratory Rate 15 16 Blood Pressure 122/57 L Pulse Oximetry 96 96 Oxygen Delivery Method Mechanical Ventilation Oxygen Flow Rate 02/02/24 06:00 02/02/24 06:00 02/02/24 06:15 Temperature Pulse Rate 102 H Respiratory Rate 16 Blood Pressure 125/57 L 96/46 L Pulse Oximetry 95 Oxygen Delivery Method Oxygen Flow Rate 02/02/24 06:15 02/02/24 06:30 02/02/24 06:30 Temperature Pulse Rate 132 H 143 H Respiratory Rate 16 22 Blood Pressure 73/42 L Pulse Oximetry 99 95 Oxygen Delivery Method Oxygen Flow Rate 0 02/02/24 06:33 02/02/24 06:33 02/02/24 06:45 Temperature Pulse Rate 128 H Respiratory Rate 21 Blood Pressure 92/55 L 97/54 L Pulse Oximetry 94 Oxygen Delivery Method Oxygen Flow Rate 02/02/24 06:45 02/02/24 07:00 02/02/24 07:00 Temperature Pulse Rate 140 H 112 H Respiratory Rate 27 H 24 Blood Pressure 146/65 H Pulse Oximetry 92 94 Oxygen Delivery Method Oxygen Flow Rate 02/02/24 07:15 02/02/24 07:15 Temperature Pulse Rate 96 H Respiratory Rate 22 Blood Pressure 156/67 H Pulse Oximetry 95 Oxygen Delivery Method Oxygen Flow Rate Fraction of Inspired Oxygen 60 SaO2/FiO2 Ratio 265 Oxygen Delivery Method Mechanical Ventilation Oxygen Flow Rate 0 Narrative Exam Narrative: Intubated and sedated. NAD Lungs clear heart regular Abdomen ND, NT Legs free of edema. Cachectic. Objective Labs 02/02/24 04:35 02/02/24 04:35 Labs: Laboratory Results - last 24 hr 01/31/24 01/31/24 01/31/24 09:13 13:28 13:28 WBC RBC Hgb Hct MCV MCH MCHC RDW Plt Count Neut % (Auto) Lymph % (Auto) Mathews % (Auto) Eos % (Auto) Baso % (Auto) Neut # (Auto) Lymph # (Auto) Mathews # (Auto) Eos # (Auto) Baso # (Auto) Sodium Potassium Chloride Carbon Dioxide BUN Creatinine Estimated GFR BUN/Creatinine Ratio Glucose Calcium Phosphorus Magnesium Total Bilirubin AST ALT Alkaline Phosphatase NT-Pro-B Natriuret Pep Total Protein Albumin Globulin Albumin/Globulin Ratio Procalcitonin Ref Test (Refrig) Comment Comment Comment 01/31/24 02/01/24 02/02/24 13:28 17:05 04:35 WBC 12.8 H RBC 3.24 L Hgb 9.9 L Hct 30.3 L MCV 93.5 D MCH 30.7 MCHC 32.8 RDW 14.0 Plt Count 316 Neut % (Auto) 72.4 Lymph % (Auto) 18.6 L Mathews % (Auto) 8.0 Eos % (Auto) 0.6 L Baso % (Auto) 0.4 Neut # (Auto) 9200 H Lymph # (Auto) 2400 Mathews # (Auto) 1000 H Eos # (Auto) 100 Baso # (Auto) 0 Sodium 139 Potassium 3.9 4.0 Chloride 107 Carbon Dioxide 32 BUN 33 H Creatinine 1.24 Estimated GFR 59 L BUN/Creatinine Ratio 26.6 H Glucose 130 H Calcium 8.0 L Phosphorus 4.1 H 4.6 H Magnesium 2.3 2.3 Total Bilirubin 0.5 AST 83 H ALT 33 Alkaline Phosphatase 264 H D NT-Pro-B Natriuret Pep 3240 H Total Protein 5.5 L Albumin 2.4 L Globulin 3.1 Albumin/Globulin Ratio 0.8 L Procalcitonin 0.27 Ref Test (Refrig) Comment [facility] Medical History Gout COPD (chronic obstructive pulmonary disease) Peripheral neuropathy Retinal detachment Peripheral vascular disease Essential hypertension (11/01/17) Pure hypercholesterolemia (04/24/16) Systolic congestive heart failure (04/24/16) Atrial fibrillation (04/24/16) Arterial embolism of left leg Surgical History Anesthesia History of surgery History of eye surgery History of cataract removal with insertion of prosthetic lens Family History Father History of heart disease Sister Cancer Social History household members: none Smoking Status: Former smoker alcohol intake: current Assessment & Plan Assessment & Plan narrative: 1. Septic shock. Present on admission and active. - New infiltrates on CXR 01/26/24. - intubated on 4/2 PM for worsening respiratory status / failure. CT shows pneumonia w/ bilateral pleural effusions. - Ceftriaxone 1 gm Q24h, changed to Zosyn. Leukocytosis now resolved. - added fluconazole for possible yobany infection with budding yeast and pseudohyphae on sputum culture. 400 mg dosing given initially, continue 200 mg daily for 14 days for presumed thrush and possible candidal pneumonia. Follow up cultures. Also sent fungal culture with thoracentesis. Cultures pending. The pleural fluid is culture negative at this point. - start sedation vacations starting 01/31. Family does not want trach or PEG per advanced directives. 2. Aspiration pneumonia, present on admission and active. 3. Acute septic encephalopathy, present on admission and active. 4. MAGALYS, present on admission and active. 5. Acute hypoxic respiratory failure, likely aspiration pneumonia, Acute on chronic HFrEF with R pleural effusion. Present on admission and active. -echocardiogram without evidence of significant worsened cardiomyopathy. E jection fraction is 45-55%. 6. Severe Chronic Protein Calorie Malnutrition. Present on admission and active. r/t to decreased energy intake and increased protein needs with CHF as evidenced by severe muscle wasting (temporalis, interosseous) and severe subcutaneous fat loss (buccal and orbital fat pads), <75% of estimated energy requirements for >1 month, BMI 20.6 (underweight for age), and substance abuse. -Started TPN 01/28 and will continue. Goal tube feeds are 45 cc per hour, will see if he tolerates 20 cc with his small stomach. Watch phos levels closely, high risk for refeeding syndrome. 7. Severe alcohol withdrawal with delirium, Present on admission and active. - Precedex drip, Phenobarbital increased dose and prn and Haldol. Does not respond well to Lorazepam. - Continue IV Thiamine and Folate. 8. Atrial Fibrillation, Persistent with RVR. Present on admission and active. - on lovenox now given no PO intake for anticoagulation. Held for thoracentesis 01/29. - difficulties with afib with RVR the last few days. Did receive amiodarone loading IV. consider either metoprolol IV, resumption of PO via feeding tube, or PO amiodarone depending on BP. - metoprolol IV prn for rate control. 9. Acute on Chronic HFrEF, Present on admission and active. - Last LVEF was 30% via TTE in 2022. Now with EF of 45-55% 10. Ambulatory Dysfunction, Present on admission and active. 11. Ground Level Fall, Present on admission and active. 12. Lower Extremity Weakness with history of T6 Compression Fracture, Present on admission and active. His fall was likely secondary to alcohol intoxication though does have bilateral weakness with T6 compression fracture. He could not tolerate the planned MR of T spine to make sure no spinal pathology and the Shoulder MR plan was also deferred. - Treat alcohol and hypomagnesemia as noted below. - Given his lower extremity weakness and history of T6 compression fracture, tried to do a thoracic spine MRI to rule out acute issue, though he does not have other clinical signs of cord compression. 13. Hypomagnesemia, Present on admission and improved. - Replace as needed, monitor. 14. Left Humeral Head Fracture. Present on admission and active. Mildly displaced per x-ray. - Continue sling. Non-operative with outpatient management for now, discussed with orthopedics whom recommended MRI for this patient for further evaluation for possible rotator cuff injury. - PRN Hydrocodone and IV Dilaudid while sedated. -shoulder MRI deferred for now as noted above. 15. Essential Hypertension, not active. - holding home medications, resume when pressures improve. 16. Tobacco use and dependence. Present on admission and active. - nicotine patch Placement -[facility] has reviewed and accepted him when he is ready. Likely many more days Code Status: Full Code, surrogate is patient's daughter. DVT: on Eliquis normally, now on Lovenox BID 1mg / kg, held prior to thoracentesis but will resume. Dispo: Remains ICU. On Vent and pressors. PLAN: -sedation vacation today. -begin spontaneous breathing trials as able. -continue current medications. He appears to have a very low-level reserve. We will discuss level of care with family with regards to strategies to extubate and what the re-intubation plan would or would not be. Quality VTE Deep Vein Thrombosis/Pulmonary Embolism Present on Admission: No
[2024-02-02] MEDS: ENOXAPARIN 60 MG/0.6 ML SYRINGE SUBCUT ×2 (08:11→20:31)
[2024-02-02] MEDS: PANTOPRAZOLE 40 MG VIAL IV (08:11)
[2024-02-02] MEDS: FUROSEMIDE 40 MG/4 ML VIAL 20 MG IV ×3 (08:11→20:31)
[2024-02-02] MEDS: propofoL 1,000 MG/100 ML VIAL 1.742 MG IV (08:55)
--- NOTE | 2024-02-02 09:44 | PC.NURSE ---
Addendum entered by Markos Pang R.N. 02/02/24 16:08: Failed breathing trial, ended at 1600. Low tidal volumes followed by apnea ventilation. Dr Rivera made aware Addendum entered by Markos Pang R.N. 02/02/24 15:49: Breathing trial started at 1515, tolerating well, RT at bedside. Addendum entered by Markos Pang R.N. 02/02/24 14:45: OG removed. Dobhoff inserted in right nare. Awaiting confirmation of placement via X-ray Original Note: Per Dr Son, wean off sedation until patient is able to follow commands without severe agitation then perform pressure support trial in order to determine extubation viability. Dr Rivera will be speaking with family to determine plan of care if potential reintubation is needed.
[2024-02-02] MEDS: AMIODARONE 200 MG TABLET PO ×2 (10:13→20:32)
[2024-02-02] MEDS: FLUCONAZOLE 200 MG/100 ML PIGGYBACK 100 MG IV (10:13)
[2024-02-02] MEDS: dexmedeTOMIDine in 0.9 % NaCL 400 MCG/100 ML PLAST..BAG 11.612 MCG IV ×2 (12:06→20:06)
--- NOTE | 2024-02-02 12:26 | CM.DPC ---
DCP Cont. Reviewed EMR and team rounds for status updates. Plan for today is to wean off of sedation in order to trial extubation. Cont. to monitor. If he needs to be reintubated, Dr. Rivera will talk with family about goals of care.
[2024-02-02] MEDS: PHENYLEPHRINE 20,000 MCG in DEXTROSE 5% IN WATER 250 ML 22.5 MCG IV (12:34)
--- NOTE | 2024-02-02 14:16 | DI.RAD.S_ITS ---
PROCEDURE: XR KUB INDICATIONS: check for dobhoff placement TECHNIQUE: One view of the abdomen acquired. COMPARISON: [facility], , XR KUB, 02/01/2024, 14:41. FINDINGS: Surgical changes and devices: Weighted feeding tube in the stomach, similar prior exam. Nonobstructive bowel gas pattern Bowel: Bowel gas pattern is normal. Soft tissues: No suspicious abdominal calcifications. Visualized solid organ contours appear normal in size. Bones: No suspicious bony lesions. IMPRESSION: Weighted feeding tube in the pelvis Approved by: Aries Stevenson M.D. on 02/02/2024 at 14:52
[2024-02-02] MEDS: PHENYLEPHRINE 20,000 MCG in DEXTROSE 5% IN WATER 250 ML 30 MCG IV (20:07)
--- NOTE | 2024-02-02 20:39 | PM.ICURNDS ---
- :: This patient was seen via real time interactive two-way audiovisual telecommunication. remians intubated and sedation restarted. hr trending uop and due for amiodarone his LFt are slowly trending up, will monitor closely as amio may need to be de-escalated on abx, procal is bnrderlne but given heavy secretion load will keep them on. he failed sbt today and remains high risk to fail liberation in [facility]
[2024-02-03] VITALS (111 sets, daily range): BP systolic 85–137; BP diastolic 44–62; PULSE 69–149; RESP 0–151; TEMP 36.6–37.6; O2SAT 87–100
[2024-02-03] MEDS: CHLORHEXIDINE GLUCONATE 15 ML CUP PO ×4 (01:00→17:30)
[2024-02-03] MEDS: propofoL 1,000 MG/100 ML VIAL 6.967 MG IV (01:04)
[2024-02-03] MEDS: dexmedeTOMIDine in 0.9 % NaCL 400 MCG/100 ML PLAST..BAG 11.612 MCG IV ×3 (04:48→20:15)
[2024-02-03] MEDS: PHENYLEPHRINE 20,000 MCG in DEXTROSE 5% IN WATER 250 ML 30 MCG IV ×3 (05:48→22:16)
--- NOTE | 2024-02-03 06:31 | PC.NURSE ---
shift stacker RN note Pt intubated and sedated, DALE, grimaces with stimulation, does not follow commands, reaches for ETT, bilat soft wrist restraints on to maintain therapy, VSS, afebrile, PPPx4, scrotal edema, afib 80-130s, #7.5 ETT/22 at lips, vent 14/400/5/21%, lungs coarse t/o and decreased to bases, suctioned for mod amts creamy secretions, weak cough, O2 sats >92%, abd soft flat with BS, tube feed restarted via dobhoff in R nare 70cm, r/c draining clear yellow urine, skin warm, dusky, PICC TISH patent, periph IV sites patent, meds as ordered
--- NOTE | 2024-02-03 07:37 | PM.PN.1 ---
Subjective Subjective Interval history: Narrative not obtainable, he is intubated. He failed breathing trial yesterday. He did well for 30 minutes but then developed complete apnea. His [id number], indicates she would want to do everything for him to support him at this point including re-intubation if he failed extubation. Exam Vital Signs (past 8 hours): - 02/02/24 23:45 02/02/24 23:45 02/03/24 00:00 Temperature Pulse Rate 110 H Respiratory Rate 16 Blood Pressure 91/54 L Pulse Oximetry 93 Oxygen Delivery Method Mechanical Ventilation Oxygen Flow Rate 02/03/24 00:00 02/03/24 00:00 02/03/24 00:15 Temperature 98.9 F Pulse Rate 103 H 107 H Respiratory Rate 16 16 Blood Pressure 97/52 L Pulse Oximetry 93 93 Oxygen Delivery Method Oxygen Flow Rate 0 02/03/24 00:15 02/03/24 00:30 02/03/24 00:30 Temperature Pulse Rate 101 H Respiratory Rate 16 Blood Pressure 98/49 L 101/49 L Pulse Oximetry 94 Oxygen Delivery Method Oxygen Flow Rate 02/03/24 00:45 02/03/24 00:45 02/03/24 01:00 Temperature Pulse Rate 107 H 101 H Respiratory Rate 16 16 Blood Pressure 106/49 L Pulse Oximetry 93 93 Oxygen Delivery Method Oxygen Flow Rate 02/03/24 01:00 02/03/24 01:15 02/03/24 01:15 Temperature Pulse Rate 103 H Respiratory Rate 16 Blood Pressure 92/51 L 99/53 L Pulse Oximetry 93 Oxygen Delivery Method Oxygen Flow Rate 0 02/03/24 01:30 02/03/24 01:30 02/03/24 01:45 Temperature Pulse Rate 96 H 99 H Respiratory Rate 16 16 Blood Pressure 103/53 L Pulse Oximetry 93 94 Oxygen Delivery Method Oxygen Flow Rate 02/03/24 01:45 02/03/24 02:00 02/03/24 02:00 Temperature Pulse Rate 96 H Respiratory Rate 16 Blood Pressure 99/50 L 105/50 L Pulse Oximetry 95 Oxygen Delivery Method Oxygen Flow Rate 0 02/03/24 02:15 02/03/24 02:15 02/03/24 02:30 Temperature Pulse Rate 101 H Respiratory Rate 15 Blood Pressure 104/52 L 108/55 L Pulse Oximetry 94 Oxygen Delivery Method Oxygen Flow Rate 02/03/24 02:30 02/03/24 02:45 02/03/24 02:45 Temperature Pulse Rate 97 H 92 H Respiratory Rate 15 15 Blood Pressure 107/52 L Pulse Oximetry 94 94 Oxygen Delivery Method Oxygen Flow Rate 02/03/24 03:00 02/03/24 03:00 02/03/24 03:15 Temperature Pulse Rate 90 Respiratory Rate 15 Blood Pressure 117/57 L 121/58 L Pulse Oximetry 95 Oxygen Delivery Method Oxygen Flow Rate 02/03/24 03:15 02/03/24 03:30 02/03/24 03:30 Temperature Pulse Rate 91 H 95 H Respiratory Rate 15 15 Blood Pressure 117/55 L Pulse Oximetry 94 94 Oxygen Delivery Method Oxygen Flow Rate 0 02/03/24 03:45 02/03/24 03:45 02/03/24 04:00 Temperature 99.6 F Pulse Rate 91 H 92 H Respiratory Rate 15 15 Blood Pressure 112/57 L Pulse Oximetry 94 94 Oxygen Delivery Method Oxygen Flow Rate 0 02/03/24 04:00 02/03/24 04:00 02/03/24 04:15 Temperature Pulse Rate Respiratory Rate Blood Pressure 120/58 L 109/55 L Pulse Oximetry Oxygen Delivery Method Mechanical Ventilation Oxygen Flow Rate 02/03/24 04:15 02/03/24 04:30 02/03/24 04:30 Temperature Pulse Rate 93 H 88 Respiratory Rate 16 16 Blood Pressure 111/52 L Pulse Oximetry 94 95 Oxygen Delivery Method Oxygen Flow Rate 02/03/24 04:45 02/03/24 04:45 02/03/24 05:00 Temperature Pulse Rate 91 H 87 Respiratory Rate 16 16 Blood Pressure 121/59 L Pulse Oximetry 94 95 Oxygen Delivery Method Oxygen Flow Rate 02/03/24 05:00 02/03/24 05:15 02/03/24 05:15 Temperature Pulse Rate 86 Respiratory Rate 17 Blood Pressure 117/56 L 124/58 L Pulse Oximetry 94 Oxygen Delivery Method Oxygen Flow Rate 0 02/03/24 05:30 02/03/24 05:30 02/03/24 05:45 Temperature Pulse Rate 89 84 Respiratory Rate 17 17 Blood Pressure 122/60 Pulse Oximetry 95 96 Oxygen Delivery Method Oxygen Flow Rate 02/03/24 05:45 02/03/24 06:00 02/03/24 06:00 Temperature Pulse Rate 88 Respiratory Rate 17 Blood Pressure 126/59 L 137/60 Pulse Oximetry 95 Oxygen Delivery Method Oxygen Flow Rate 0 02/03/24 06:15 02/03/24 06:15 02/03/24 06:30 Temperature Pulse Rate 85 88 Respiratory Rate 34 H 30 H Blood Pressure 128/61 Pulse Oximetry 94 94 Oxygen Delivery Method Oxygen Flow Rate 02/03/24 06:30 02/03/24 06:45 02/03/24 06:45 Temperature Pulse Rate 84 Respiratory Rate 33 H Blood Pressure 122/56 L 124/57 L Pulse Oximetry 95 Oxygen Delivery Method Oxygen Flow Rate 02/03/24 07:00 02/03/24 07:00 02/03/24 07:15 Temperature Pulse Rate 83 87 Respiratory Rate 39 H 30 H Blood Pressure 116/56 L Pulse Oximetry 95 95 Oxygen Delivery Method Oxygen Flow Rate 02/03/24 07:15 02/03/24 07:30 02/03/24 07:30 Temperature Pulse Rate 81 Respiratory Rate 41 H Blood Pressure 117/57 L 130/61 Pulse Oximetry 96 Oxygen Delivery Method Oxygen Flow Rate Fraction of Inspired Oxygen 60 SaO2/FiO2 Ratio 265 Oxygen Delivery Method Mechanical Ventilation Oxygen Flow Rate 0 Narrative Exam Narrative: Intubated and sedated. NAD Lungs clear heart regular Abdomen ND, NT Legs free of edema. Cachectic. Objective Labs 02/02/24 04:35 02/03/24 08:00 [facility] Medical History Gout COPD (chronic obstructive pulmonary disease) Peripheral neuropathy Retinal detachment Peripheral vascular disease Essential hypertension (11/01/17) Pure hypercholesterolemia (04/24/16) Systolic congestive heart failure (04/24/16) Atrial fibrillation (04/24/16) Arterial embolism of left leg Surgical History Anesthesia History of surgery History of eye surgery History of cataract removal with insertion of prosthetic lens Family History Father History of heart disease Sister Cancer Social History household members: none Smoking Status: Former smoker alcohol intake: current Assessment & Plan Assessment & Plan narrative: 1. Septic shock. Present on admission and active. - New infiltrates on CXR 01/26/24. - intubated on 4/2 PM for worsening respiratory status / failure. CT shows pneumonia w/ bilateral pleural effusions. - Ceftriaxone 1 gm Q24h, changed to Zosyn. Leukocytosis now resolved. - added fluconazole for possible yobany infection with budding yeast and pseudohyphae on sputum culture. 400 mg dosing given initially, continue 200 mg daily for 14 days for presumed thrush and possible candidal pneumonia. Follow up cultures. Also sent fungal culture with thoracentesis. Cultures pending. The pleural fluid is culture negative at this point. - start sedation vacations starting 02/01 (failed 02/01). Family does not want trach or PEG per advanced directives. 2. Aspiration pneumonia, present on admission and active. 3. Acute septic encephalopathy, present on admission and active. 4. MAGALYS, present on admission and improving. 5. Acute hypoxic respiratory failure, likely aspiration pneumonia, Acute on chronic HFrEF with R pleural effusion. Present on admission and active. -echocardiogram without evidence of significant worsened cardiomyopathy. Ejection fraction is 45-55%. 6. Severe Chronic Protein Calorie Malnutrition. Present on admission and active. r/t to decreased energy intake and increased protein needs with CHF as evidenced by severe muscle wasting (temporalis, interosseous) and severe subcutaneous fat loss (buccal and orbital fat pads), <75% of estimated energy requirements for >1 month, BMI 20.6 (underweight for age), and substance abuse. -Started TPN 01/28 and will continue. Goal tube feeds are 45 cc per hour, will see if he tolerates 20 cc with his small stomach. Watch phos levels closely, high risk for refeeding syndrome. 7. Severe alcohol withdrawal with delirium, Present on admission and improved. - Precedex drip, Phenobarbital increased dose and prn and Haldol. Does not respond well to Lorazepam. - Continue IV Thiamine and Folate. 8. Atrial Fibrillation, Persistent with RVR. Present on admission and improved. - on lovenox now given no PO intake for anticoagulation. Held for thoracentesis 01/29. - difficulties with afib with RVR the last few days. Did receive amiodarone loading IV. consider either metoprolol IV, resumption of PO via feeding tube, or PO amiodarone depending on BP. - metoprolol IV prn for rate control. 9. Acute on Chronic HFrEF, Present on admission and active. - Last LVEF was 30% via TTE in 2022. Now with EF of 45-55% 10. Ambulatory Dysfunction, Present on admission and active. 11. Ground Level Fall, Present on admission and active. 12. Lower Extremity Weakness with history of T6 Compression Fracture, Present on admission and active. His fall was likely secondary to alcohol intoxication though does have bilateral weakness with T6 compression fracture. He could not tolerate the planned MR of T spine to make sure no spinal pathology and the Shoulder MR plan was also deferred. - Treat alcohol and hypomagnesemia as noted below. - Given his lower extremity weakness and history of T6 compression fracture, tried to do a thoracic spine MRI to rule out acute issue, though he does not have other clinical signs of cord compression. 13. Hypomagnesemia, Present on admission and improved. - Replace as needed, monitor. 14. Left Humeral Head Fracture. Present on admission and active. Mildly displaced per x-ray. - Continue sling. Non-operative with outpatient management for now, discussed with orthopedics whom recommended MRI for this patient for further evaluation for possible rotator cuff injury. - PRN Hydrocodone and IV Dilaudid while sedated. -shoulder MRI deferred for now as noted above. 15. Essential Hypertension, not active. - holding home medications, resume when pressures improve. 16. Tobacco use and dependence. Present on admission and active. - nicotine patch Placement -[facility] has reviewed and accepted him when he is ready. Likely many more days Code Status: Full Code, surrogate is patient's daughter. DVT: on Eliquis normally, now on Lovenox BID 1mg / kg, held prior to thoracentesis but will resume. Dispo: Remains ICU. On Vent and pressors. PLAN: -sedation vacation again today. -repeat spontaneous breathing trials today. -continue current medications. He appears to have a very low-level reserve. DPOA indicates full level of care, including reintubation if needed Quality VTE Deep Vein Thrombosis/Pulmonary Embolism Present on Admission: No
[2024-02-03 08:17] LABS: Alanine Aminotransferase 74 IU/L (<50); Albumin 2.7 g/dL (3.5-5.0); Albumin Globulin Ratio 0.9 (1.0-2.8); Alkaline Phosphatase 433 U/L (38-126); Aspartate Aminotransferase 191 IU/L (17-59); BUN Creatinine Ratio 25.4 (6-22); Bilirubin Total 0.7 mg/dL (0.2-1.3); Blood Urea Nitrogen 34 mg/dL (9-20); Calcium 8.1 mg/dL (8.4-10.2); Carbon Dioxide 31 mmol/L (22-32); Chloride 102 mmol/L (98-107); Estimated Glomerular Filt Rate 54 mL/min (>60); Globulin 3.1 g/dL (1.7-4.1); Glucose 109 mg/dL (80-110); HEMOLYSIS < 15 (0-50); Potassium 3.7 mmol/L (3.4-5.1); Sodium 136 mmol/L (137-145); Total Protein 5.8 g/dL (6.3-8.2)
[2024-02-03] MEDS: PANTOPRAZOLE 40 MG VIAL IV (08:25)
[2024-02-03] MEDS: AMIODARONE 200 MG TABLET PO (08:25)
[2024-02-03] MEDS: ENOXAPARIN 60 MG/0.6 ML SYRINGE SUBCUT ×2 (08:25→20:15)
[2024-02-03] MEDS: FUROSEMIDE 40 MG/4 ML VIAL 20 MG IV ×3 (08:25→20:14)
[2024-02-03] MEDS: SODIUM CHLORIDE 0.9% FLUSH 10 ML IV ×2 (08:26→20:14)
[2024-02-03] MEDS: ALBUTEROL/IPRATROPIUM 3 ML AMPUL INH (09:05)
[2024-02-03 09:43] LABS: Add Manual Diff / Slide Review NO; Basophils Absolute Auto 100 /uL (0-100); Eosinophils Absolute Auto 100 /uL (0-450); Hematocrit 28.4 % (41-53); Hemoglobin 9.5 g/dL (13.5-17.5); Lymphocytes Absolute Auto 2600 /uL (1100-4500); Lymphocytes Percent Auto 23.3 % (25-40); Mean Corpuscular HGB Conc 33.5 % (30-36); Mean Corpuscular Hemoglobin 31.3 PG (26-34); Mean Corpuscular Volume 93.4 fL (80-100); Monocytes Absolute Auto 1100 /uL (0-900); Monocytes Percent Auto 10.1 % (3-14); Neutrophils Absolute Auto 7100 /uL (1500-7000); Neutrophils Percent Auto 64.6 % (50-75); Platelet Count 251 X10^3/uL (150-400); Red Blood Cell Count 3.04 X10^6/uL (4.5-5.9)
--- NOTE | 2024-02-03 10:48 | PC.NURSE ---
Addendum entered by Markos Pang R.N. 02/03/24 17:33: Tube feeding increased to 25ml/hr per Criselda from dietary Original Note: Breathing trial failed. Began at 1005, concluded at 1045. Sustained respirations greater than 35, insufficient tidal volumes, and RSBI greater than 105.
[2024-02-03] MEDS: FLUCONAZOLE 200 MG/100 ML PIGGYBACK 100 MG IV (11:04)
[2024-02-03] MEDS: METOPROLOL TARTRATE 5 MG/5 ML INJ IV (11:04)
--- NOTE | 2024-02-03 12:28 | RT ---
PEEP INCREASED FROM 5 TO 8 AND FIO2 INCREASED FROM 21 TO 30%, IMPROVING O2 SAT FROM 82% TO 97%.
[2024-02-03] MEDS: propofoL 1,000 MG/100 ML VIAL 5.225 MG IV (13:07)
--- NOTE | 2024-02-03 13:26 | PM.PN.EICU ---
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-emergency department technician care: Yes Patient Location: ICU Provider location (State): [place] Other participants/roles: RN Interval history: pt remains intubted, failed SVGT, spoke with family abt trach Current Medications Current Medications Medications: Home Medications lisinopril 10 mg tablet 5 mg (1/2 x 10 mg) PO BID #180 tabs 11/01/22 [Rx Confirmed 01/25/24] spironolactone 25 mg tablet 25 mg PO DAILY #90 tabs 02/06/23 [Rx Confirmed 01/25/24] metoprolol succinate 50 mg tablet,extended release 24 hr 50 mg PO BID #180 tabs 08/10/23 [Rx Confirmed 01/25/24] apixaban 2.5 mg tablet (Eliquis) 2.5 mg PO BID #60 tabs 08/27/23 [Rx Confirmed 01/25/24] atorvastatin 80 mg tablet 80 mg PO BEDTIME #30 tabs 10/24/23 [Rx Confirmed 01/25/24] furosemide 20 mg tablet 20 mg PO BID #180 tabs 11/12/23 [Rx Confirmed 01/25/24] Visit Medications (administered) Generic Name Dose Route Start Last Admin Trade Name Freq PRN Reason Stop Dose Admin Albuterol/Ipratropium 3 ml 01/30/24 02:01 02/03/24 09:05 Albuterol/Ipratropium 3 Ml Ampul INH 3 ml RTQ4HR PRN Administration Shortness Of Breath Amiodarone HCl 200 mg 02/02/24 09:00 02/03/24 08:25 Amiodarone 200 Mg Tablet PO 200 mg BID FRANKO Administration Chlorhexidine Gluconate 15 ml 01/30/24 06:00 02/03/24 11:04 Chlorhexidine Gluconate 15 Ml Cup PO 15 ml Q6HR FRANKO Administration Enoxaparin Sodium 60 mg 01/27/24 10:30 02/03/24 08:25 Enoxaparin 60 Mg/0.6 Ml Syringe SUBCUT 60 mg BID FRANKO Administration Fentanyl 25 mcg 01/30/24 13:02 01/30/24 15:31 Fentanyl 100 Mcg/2 Ml Inj IV 25 mcg Q1H PRN Administration Pain, Severe (7-10) Furosemide 20 mg 01/31/24 15:00 02/03/24 08:25 Furosemide 40 Mg/4 Ml Vial IV 20 mg TID FRANKO Administration dexmedeTOMIDine in 0.9 % NaCL 400 mcg in 100 mls @ 2.903 mls/hr 01/26/24 19:30 02/03/24 13:07 Precedex IV 0.8 mcg/kg/hr TITRATE FRANKO 11.612 mls/hr Administration Protocol 0.2 MCG/KG/HR Propofol 1,000 mg in 100 mls @ 1.742 mls/hr 01/30/24 00:45 02/03/24 13:07 Propofol IV 15 mcg/kg/min TITRATE FRANKO 5.225 mls/hr Administration Protocol 5 MCG/KG/MIN NOREPINEPHRINE BITARTRATE/D5W 4 mg in 250 mls @ 21.773 mls/hr 01/30/24 17:30 02/02/24 06:50 Levophed IV 0 mcg/kg/min TITRATE FRANKO 0 mls/hr Titration Protocol 0.1 MCG/KG/MIN Fluconazole 200 mg in 100 mls @ 100 mls/hr 01/31/24 11:00 02/03/24 11:04 Diflucan IV 02/13/24 11:59 100 mls/hr Q24H FRANKO Administration Phenylephrine HCl 20,000 mcg/ 250 mls @ 75 mls/hr 02/02/24 06:36 02/03/24 05:48 Dextrose IV 40 mcg/min TITRATE FRANKO 30 mls/hr Administration Protocol 100 MCG/MIN Metoprolol Tartrate 5 mg 02/03/24 10:56 02/03/24 11:04 Metoprolol Tartrate 5 Mg/5 Ml Inj IV 5 mg Q1HR PRN Administration heart rate over 120 Nicotine 14 mg 01/25/24 12:45 02/03/24 08:26 Nicotine 14 Patch TOP Not Given DAILY FRANKO Ondansetron HCl 4 mg 01/24/24 22:11 01/26/24 18:06 Ondansetron 4 Mg/2 Ml Inj IV 4 mg Q6HR PRN Administration Nausea And Vomiting Pantoprazole Sodium 40 mg 01/30/24 09:00 02/03/24 08:25 Pantoprazole 40 Mg Vial IV 40 mg DAILY FRANKO Administration Sodium Chloride 10 ml 02/01/24 00:28 02/02/24 05:46 Sodium Chloride 0.9% Flush IV 10 ml PRN PRN Administration Flush Sodium Chloride 10 ml 02/01/24 09:00 02/03/24 08:26 Sodium Chloride 0.9% Flush IV 10 ml BID FRANKO Administration Objective Ventilator Parameters: Ventilator Settings FiO2 30 CPAP Pressure Amount 14 RT Vent Frequency 14 Ventilator Tidal Volume 400 Exhaled Positive End Expiratory 8 Pressure Inspiratory Phase Time 0.9 I:E Ratio 1:3.8 Patient Position HOB >= 30 degrees Labs 02/03/24 09:40 02/03/24 08:00 Labs: Laboratory Results - last 24 hr 02/03/24 02/03/24 08:00 09:40 WBC 11.0 RBC 3.04 L Hgb 9.5 L Hct 28.4 L MCV 93.4 MCH 31.3 MCHC 33.5 RDW 14.0 Plt Count 251 Neut % (Auto) 64.6 Lymph % (Auto) 23.3 L Simpson % (Auto) 10.1 Eos % (Auto) 1.0 L Baso % (Auto) 1.0 Neut # (Auto) 7100 H Lymph # (Auto) 2600 Simpson # (Auto) 1100 H Eos # (Auto) 100 Baso # (Auto) 100 Sodium 136 L Potassium 3.7 Chloride 102 Carbon Dioxide 31 BUN 34 H Creatinine 1.34 H Estimated GFR 54 L BUN/Creatinine Ratio 25.4 H Glucose 109 Calcium 8.1 L Total Bilirubin 0.7 AST 191 H ALT 74 H Alkaline Phosphatase 433 H D Total Protein 5.8 L Albumin 2.7 L Globulin 3.1 Albumin/Globulin Ratio 0.9 L Exam Vital Signs (past 8 hours): - 02/03/24 05:30 02/03/24 05:30 02/03/24 05:45 Temperature Pulse Rate 89 84 Respiratory Rate 17 17 Blood Pressure 122/60 Pulse Oximetry 95 96 Oxygen Delivery Method Oxygen Flow Rate 02/03/24 05:45 02/03/24 06:00 02/03/24 06:00 Temperature Pulse Rate 88 Respiratory Rate 17 Blood Pressure 126/59 L 137/60 Pulse Oximetry 95 Oxygen Delivery Method Oxygen Flow Rate 0 02/03/24 06:15 02/03/24 06:15 02/03/24 06:30 Temperature Pulse Rate 85 88 Respiratory Rate 34 H 30 H Blood Pressure 128/61 Pulse Oximetry 94 94 Oxygen Delivery Method Oxygen Flow Rate 02/03/24 06:30 02/03/24 06:45 02/03/24 06:45 Temperature Pulse Rate 84 Respiratory Rate 33 H Blood Pressure 122/56 L 124/57 L Pulse Oximetry 95 Oxygen Delivery Method Oxygen Flow Rate 02/03/24 07:00 02/03/24 07:00 02/03/24 07:15 Temperature Pulse Rate 83 87 Respiratory Rate 39 H 30 H Blood Pressure 116/56 L Pulse Oximetry 95 95 Oxygen Delivery Method Oxygen Flow Rate 02/03/24 07:15 02/03/24 07:30 02/03/24 07:30 Temperature Pulse Rate 81 Respiratory Rate 41 H Blood Pressure 117/57 L 130/61 Pulse Oximetry 96 Oxygen Delivery Method Oxygen Flow Rate 02/03/24 07:45 02/03/24 07:45 02/03/24 08:00 Temperature 98.0 F Pulse Rate 82 Respiratory Rate 34 H Blood Pressure 126/60 Pulse Oximetry 96 Oxygen Delivery Method Oxygen Flow Rate 02/03/24 08:00 02/03/24 08:00 02/03/24 08:00 Temperature Pulse Rate 83 Respiratory Rate 31 H Blood Pressure 127/55 L Pulse Oximetry 95 Oxygen Delivery Method Mechanical Ventilation Oxygen Flow Rate 02/03/24 08:15 02/03/24 08:15 02/03/24 08:30 Temperature Pulse Rate 83 85 Respiratory Rate 29 H 33 H Blood Pressure 119/59 L Pulse Oximetry 96 96 Oxygen Delivery Method Oxygen Flow Rate 02/03/24 08:30 02/03/24 08:45 02/03/24 08:45 Temperature Pulse Rate 90 Respiratory Rate 29 H Blood Pressure 99/51 L 106/51 L Pulse Oximetry 94 Oxygen Delivery Method Oxygen Flow Rate 02/03/24 09:00 02/03/24 09:00 02/03/24 09:15 Temperature Pulse Rate 87 81 Respiratory Rate 25 H 33 H Blood Pressure 104/52 L Pulse Oximetry 95 96 Oxygen Delivery Method Oxygen Flow Rate 02/03/24 09:15 02/03/24 09:30 02/03/24 09:30 Temperature Pulse Rate 120 H Respiratory Rate 22 Blood Pressure 101/49 L 106/53 L Pulse Oximetry 92 Oxygen Delivery Method Oxygen Flow Rate 02/03/24 09:45 02/03/24 09:45 02/03/24 10:00 Temperature Pulse Rate 131 H 138 H Respiratory Rate 21 19 Blood Pressure 102/54 L Pulse Oximetry 90 L 90 L Oxygen Delivery Method Oxygen Flow Rate 02/03/24 10:00 02/03/24 10:07 02/03/24 10:15 Temperature Pulse Rate 135 H Respiratory Rate 28 H Blood Pressure 90/53 L Pulse Oximetry 87 L 95 Oxygen Delivery Method Oxygen Flow Rate 02/03/24 10:15 02/03/24 10:30 02/03/24 10:30 Temperature Pulse Rate 149 H Respiratory Rate 27 H Blood Pressure 100/50 L 94/60 Pulse Oximetry 97 Oxygen Delivery Method Oxygen Flow Rate 02/03/24 10:45 02/03/24 10:45 02/03/24 10:46 Temperature Pulse Rate 142 H Respiratory Rate 33 H Blood Pressure 100/59 L 97/55 L Pulse Oximetry 100 Oxygen Delivery Method Oxygen Flow Rate 02/03/24 10:46 02/03/24 11:00 02/03/24 11:00 Temperature 98 F Pulse Rate 138 H 147 H Respiratory Rate 24 27 H Blood Pressure Pulse Oximetry 100 92 Oxygen Delivery Method Oxygen Flow Rate 02/03/24 11:00 02/03/24 11:15 02/03/24 11:15 Temperature Pulse Rate 101 H Respiratory Rate 21 Blood Pressure 100/54 L 101/51 L Pulse Oximetry 92 Oxygen Delivery Method Oxygen Flow Rate 02/03/24 11:30 02/03/24 11:30 02/03/24 11:45 Temperature Pulse Rate 96 H 98 H Respiratory Rate 25 H 25 H Blood Pressure 97/53 L Pulse Oximetry 90 L 90 L Oxygen Delivery Method Oxygen Flow Rate 02/03/24 11:45 02/03/24 12:00 02/03/24 12:00 Temperature Pulse Rate 97 H Respiratory Rate 20 Blood Pressure 104/55 L Pulse Oximetry 95 Oxygen Delivery Method Mechanical Ventilation Oxygen Flow Rate 02/03/24 12:00 02/03/24 12:15 02/03/24 12:15 Temperature Pulse Rate 99 H Respiratory Rate 29 H Blood Pressure 104/56 L 110/59 L Pulse Oximetry 93 Oxygen Delivery Method Oxygen Flow Rate 02/03/24 12:30 02/03/24 12:30 02/03/24 12:45 Temperature Pulse Rate 95 H 97 H Respiratory Rate 32 H 29 H Blood Pressure 107/53 L Pulse Oximetry 97 94 Oxygen Delivery Method Oxygen Flow Rate 02/03/24 12:45 02/03/24 13:00 04/07/24 13:00 Temperature 97.9 F Pulse Rate 98 H Respiratory Rate 29 H Blood Pressure 105/53 L Pulse Oximetry 96 Oxygen Delivery Method Oxygen Flow Rate 02/03/24 13:00 Temperature Pulse Rate Respiratory Rate Blood Pressure 103/50 L Pulse Oximetry Oxygen Delivery Method Oxygen Flow Rate Fraction of Inspired Oxygen 60 SaO2/FiO2 Ratio 265 Oxygen Delivery Method Mechanical Ventilation Oxygen Flow Rate 0 Narrative Exam Narrative: intubated sedated synchrnous with vent rate controlled Quality TeleICU VTE Deep Vein Thrombosis/Pulmonary Embolism Present on Admission: No Assessment & Plan Assessment and plan (1) Pleural effusion: Problem details: Bilateral moderate effusions most likely reflecting volume overload in patient with poor underlying health and CHF. Status: Acute (2) Heart failure with reduced ejection fraction: Problem details: As above, increase diuresis. 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 - Alcohol dependence with other alcohol-induced disorder Status: Acute (5) Metabolic encephalopathy: Status: Acute (6) Atrial fibrillation: Qualifiers: Atrial fibrillation type: paroxysmal Qualified Code(s): I48.0 - Paroxysmal atrial fibrillation Status: Chronic Assessment & Plan narrative: NEURO: # Alcohol withdrawal on admission, resolving -- On thiamine, folic acid, and MTV -- remains on precedex gtt, propofol gtt for sedation on vent. fentanyl iv prn for pain -- RASS goal 0 to -1 -- DAILY SAT- with goal of extubating when mental status improved -- i doubt he will pass sbt in x, family agreeable for trach by sunday RESP: # Acute hypoxemic respiratory failure- resolving -- Secondary to aspiration PNA and pulmonary edema/chf --chest ct showing bilatreal pna c/f aspiration plus bilateral pleural effusion -- cxr 01/31 showing only aoveolar edema -- continue diuresis and abx -- vent/sedation bundle -- trend abg -- fio2 needs at 30% today, secretions improved -- thora done 01/30, 800 cc removed, likely transudative c/w CHF. 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 TRANSFORMER TESTER, now on lovenox sq bid, can transition back to PO eliquis when more stable, reliably tolerating PO -- Goal HR < 110 # CHF -- continue lasix 20 mg TID for now, for even to slightly neg fluid balance -- BNP continues to dowtrend -- Strict I/O,, valdivia - - trend bmp : -- High lytes goal -- Monitor UOP as above ID: # Aspiration PNA -- follow blood cx - ngtd -- follow resp cx - yeast -- resp cultures repeated today- -- procalcitonin neg -- on zosyn, diflucan -- given sectretion load will continue abx ENDO: -- Goal BS < 180 FEN - tolerating slow advancement of feeds agree to hold TPN MSK- has left humeral head fracture- POA, in sling. will need MRI to r/o rotator cuff tear. ortho has been consulted Has Gi and DVT ppx Full code, GOC discussions ongoing plan for trach newxt week total cct 35 min D/w bedside RN. Time Spent With Patient Time with patient: 30 to 49 minutes with 50% spent counseling/coordinating care
--- NOTE | 2024-02-03 15:50 | DIET.CONS2 ---
Dietary Inpatient Consultation Note Admission Date: 01/24/2024 21:04 Pt tolerating TF running at 20mL/h, goal is 40mL/h, however concern re pt with small stomach. Spoke with ICU nurse regarding advancing to 25mL/h to test for tolerance. Current rate not meeting pts nutrition needs. RD to f/u Sunday morning. Diet: 02/01/24 Dinner Tube Feeding Diet Diet Modifications: TF Supplement type: Pivot 1.5 [place] TF mode of delivery: Continuous Starting flow rate mL/hr: 10 Flow rate goal mL/hr: 40 Titration Schedule to reach Goal Rate: advance 5 ml/hr q12hr Max total daily volume in mL: 500 Free fluid: 50 Free Water Frequency: Q6H Comment: advance 5ml/hr Q12H, free water Q6H Nutrition Percent Meal Consumed NPO 02/01/24 18:00 Electronically Signed by: Criselda Ceballos 02/03/24 15:50 Clinical Dietitian [address] [id number]
[2024-02-04] VITALS (107 sets, daily range): BP systolic 75–186; BP diastolic 37–107; PULSE 63–131; RESP 0–30; TEMP 36.8–37.6; O2SAT 91–100
[2024-02-04] MEDS: CHLORHEXIDINE GLUCONATE 15 ML CUP PO ×3 (00:44→12:19)
[2024-02-04] MEDS: propofoL 1,000 MG/100 ML VIAL 5.225 MG IV ×2 (04:33→16:40)
[2024-02-04] MEDS: dexmedeTOMIDine in 0.9 % NaCL 400 MCG/100 ML PLAST..BAG 11.612 MCG IV ×3 (04:33→21:17)
[2024-02-04] MEDS: PHENYLEPHRINE 20,000 MCG in DEXTROSE 5% IN WATER 250 ML 37.5 MCG IV ×2 (05:52→21:15)
--- NOTE | 2024-02-04 07:59 | PM.PN.1 ---
Subjective Subjective Interval history: Patient intubated and underwent SBT for 1.5hrs today before having too many secretions and tiring out. Daughters at bedside who are not POA. Spoke with KALLIEKishan Ros on the phone and she will come in after work tomorrow to discuss GOC. Exam Vital Signs (past 8 hours): - 02/04/24 00:00 02/04/24 00:00 02/04/24 00:00 Temperature Pulse Rate 89 Respiratory Rate 18 Blood Pressure 108/52 L Pulse Oximetry 92 Oxygen Delivery Method Mechanical Ventilation 02/04/24 00:15 02/04/24 00:15 02/04/24 00:30 Temperature Pulse Rate 85 86 Respiratory Rate 16 19 Blood Pressure 109/55 L Pulse Oximetry 93 91 Oxygen Delivery Method 02/04/24 00:30 02/04/24 00:45 02/04/24 00:45 Temperature Pulse Rate 89 Respiratory Rate 22 Blood Pressure 119/54 L 102/53 L Pulse Oximetry 92 Oxygen Delivery Method 02/04/24 01:00 02/04/24 01:00 02/04/24 01:15 Temperature Pulse Rate 89 87 Respiratory Rate 15 20 Blood Pressure 107/53 L Pulse Oximetry 93 92 Oxygen Delivery Method 02/04/24 01:15 02/04/24 01:30 02/04/24 01:30 Temperature Pulse Rate 92 H Respiratory Rate 21 Blood Pressure 111/51 L 97/53 L Pulse Oximetry 91 Oxygen Delivery Method 02/04/24 01:45 02/04/24 01:45 02/04/24 02:00 Temperature Pulse Rate 81 86 Respiratory Rate 17 14 Blood Pressure 116/53 L Pulse Oximetry 93 92 Oxygen Delivery Method 02/04/24 02:00 02/04/24 02:15 02/04/24 02:15 Temperature Pulse Rate 80 Respiratory Rate 14 Blood Pressure 127/58 L 127/61 Pulse Oximetry 93 Oxygen Delivery Method 02/04/24 02:30 02/04/24 02:30 02/04/24 02:45 Temperature Pulse Rate 82 Respiratory Rate 16 Blood Pressure 134/61 133/61 Pulse Oximetry 93 Oxygen Delivery Method 02/04/24 02:45 02/04/24 03:00 02/04/24 03:00 Temperature Pulse Rate 84 84 Respiratory Rate 14 20 Blood Pressure 129/59 L Pulse Oximetry 94 93 Oxygen Delivery Method 02/04/24 03:15 02/04/24 03:15 02/04/24 03:30 Temperature Pulse Rate 86 87 Respiratory Rate 14 14 Blood Pressure 131/61 Pulse Oximetry 99 93 Oxygen Delivery Method 02/04/24 03:30 02/04/24 03:45 02/04/24 03:45 Temperature Pulse Rate 83 Respiratory Rate 14 Blood Pressure 131/59 L 124/59 L Pulse Oximetry 93 Oxygen Delivery Method 02/04/24 04:00 02/04/24 04:00 02/04/24 04:00 Temperature Pulse Rate 81 Respiratory Rate 14 Blood Pressure 120/57 L Pulse Oximetry 93 Oxygen Delivery Method Mechanical Ventilation 02/04/24 04:15 02/04/24 04:15 02/04/24 04:30 Temperature Pulse Rate 79 Respiratory Rate 15 Blood Pressure 98/53 L 101/48 L Pulse Oximetry 93 Oxygen Delivery Method 02/04/24 04:30 02/04/24 04:45 02/04/24 04:45 Temperature Pulse Rate 87 83 Respiratory Rate 14 14 Blood Pressure 103/50 L Pulse Oximetry 95 95 Oxygen Delivery Method 02/04/24 05:00 02/04/24 05:00 02/04/24 05:15 Temperature Pulse Rate 81 81 Respiratory Rate 14 14 Blood Pressure 108/53 L Pulse Oximetry 95 96 Oxygen Delivery Method 02/04/24 05:15 02/04/24 05:30 02/04/24 05:30 Temperature Pulse Rate 78 Respiratory Rate 18 Blood Pressure 112/57 L 112/56 L Pulse Oximetry 96 Oxygen Delivery Method 02/04/24 05:45 02/04/24 05:45 02/04/24 05:48 Temperature 99.7 F H Pulse Rate 81 Respiratory Rate 14 Blood Pressure 118/55 L Pulse Oximetry 96 Oxygen Delivery Method 02/04/24 06:00 02/04/24 06:00 02/04/24 06:15 Temperature Pulse Rate 75 77 Respiratory Rate 14 28 H Blood Pressure 124/72 Pulse Oximetry 97 96 Oxygen Delivery Method 02/04/24 06:15 02/04/24 06:30 02/04/24 06:30 Temperature Pulse Rate 75 Respiratory Rate Blood Pressure 129/61 110/54 L Pulse Oximetry 95 Oxygen Delivery Method 02/04/24 06:45 02/04/24 06:45 Temperature Pulse Rate 75 Respiratory Rate 14 Blood Pressure 118/58 L Pulse Oximetry 95 Oxygen Delivery Method Fraction of Inspired Oxygen 21 SaO2/FiO2 Ratio 476 Oxygen Delivery Method Mechanical Ventilation Oxygen Flow Rate 0 Narrative Exam Narrative: Intubated and sedated. NAD Lungs clear heart regular Abdomen ND, NT Legs free of edema. Cachectic. Objective Labs 02/04/24 08:00 02/04/24 08:00 Labs: Laboratory Results - last 24 hr 02/03/24 02/03/24 08:00 09:40 WBC 11.0 RBC 3.04 L Hgb 9.5 L Hct 28.4 L MCV 93.4 MCH 31.3 MCHC 33.5 RDW 14.0 Plt Count 251 Neut % (Auto) 64.6 Lymph % (Auto) 23.3 L [place] % (Auto) 10.1 Eos % (Auto) 1.0 L Baso % (Auto) 1.0 Neut # (Auto) 7100 H Lymph # (Auto) 2600 [place] # (Auto) 1100 H Eos # (Auto) 100 Baso # (Auto) 100 Sodium 136 L Potassium 3.7 Chloride 102 Carbon Dioxide 31 BUN 34 H Creatinine 1.34 H Estimated GFR 54 L BUN/Creatinine Ratio 25.4 H Glucose 109 Calcium 8.1 L Total Bilirubin 0.7 AST 191 H ALT 74 H Alkaline Phosphatase 433 H D Total Protein 5.8 L Albumin 2.7 L Globulin 3.1 Albumin/Globulin Ratio 0.9 L PFSH Medical History Gout COPD (chronic obstructive pulmonary disease) Peripheral neuropathy Retinal detachment Peripheral vascular disease Essential hypertension (11/01/17) Pure hypercholesterolemia (04/24/16) Systolic congestive heart failure (04/24/16) Atrial fibrillation (04/24/16) Arterial embolism of left leg Surgical History Anesthesia History of surgery History of eye surgery History of cataract removal with insertion of prosthetic lens Family History Father History of heart disease Sister Cancer Social History household members: none Smoking Status: Former smoker alcohol intake: current Assessment & Plan Assessment & Plan narrative: 1. Septic shock. Present on admission and active. - New infiltrates on CXR 3/30/24. - intubated on 4/2 PM for worsening respiratory status / failure. CT shows pneumonia w/ bilateral pleural effusions. - Ceftriaxone 1 gm Q24h, changed to Zosyn. Leukocytosis now resolved. - added fluconazole for possible yobany infection with budding yeast and pseudohyphae on sputum culture. 400 mg dosing given initially, continue 200 mg daily for 14 days for presumed thrush and possible candidal pneumonia. Follow up cultures. Also sent fungal culture with thoracentesis. Cultures pending. The pleural fluid is culture negative at this point. - start sedation vacations starting 02/01 (failed 02/01). Patient does not want trach or PEG per advanced directives on file, however POA was not aware of this and wants these things. 2. Aspiration pneumonia, present on admission and active. 3. Acute septic encephalopathy, present on admission and active. 4. MAGALYS, present on admission and improving. 5. Acute hypoxic respiratory failure, likely aspiration pneumonia, Acute on chronic HFrEF with R pleural effusion. Present on admission and active. -echocardiogram without evidence of significant worsened cardiomyopathy. Ejection fraction is 45-55%. 6. Severe Chronic Protein Calorie Malnutrition. Present on admission and active. r/t to decreased energy intake and increased protein needs with CHF as evidenced by severe muscle wasting (temporalis, interosseous) and severe subcutaneous fat loss (buccal and orbital fat pads), <75% of estimated energy requirements for >1 month, BMI 20.6 (underweight for age), and substance abuse. -Started TPN 01/28 and will continue. Goal tube feeds are 45 cc per hour, will see if he tolerates 20 cc with his small stomach. Watch phos levels closely, high risk for refeeding syndrome. 7. Severe alcohol withdrawal with delirium, Present on admission and improved. - Precedex drip, Phenobarbital increased dose and prn and Haldol. Does not respond well to Lorazepam. - Continue IV Thiamine and Folate. 8. Atrial Fibrillation, Persistent with RVR. Present on admission and improved. - on lovenox now given no PO intake for anticoagulation. Held for thoracentesis 01/29. - difficulties with afib with RVR the last few days. Did receive amiodarone loading IV. consider either metoprolol IV, resumption of PO via feeding tube, or PO amiodarone depending on BP. - metoprolol IV prn for rate control. 9. Acute on Chronic HFrEF, Present on admission and active. - Last LVEF was 30% via TTE in 2022. Now with EF of 45-55% 10. Ambulatory Dysfunction, Present on admission and active. 11. Ground Level Fall, Present on admission and active. 12. Lower Extremity Weakness with history of T6 Compression Fracture, Present on admission and active. His fall was likely secondary to alcohol intoxication though does have bilateral weakness with T6 compression fracture. He could not tolerate the planned MR of T spine to make sure no spinal pathology and the Shoulder MR plan was also deferred. - Treat alcohol and hypomagnesemia as noted below. - Given his lower extremity weakness and history of T6 compression fracture, tried to do a thoracic spine MRI to rule out acute issue, though he does not have other clinical signs of cord compression. 13. Hypomagnesemia, Present on admission and improved. - Replace as needed, monitor. 14. Left Humeral Head Fracture. Present on admission and active. Mildly displaced per x-ray. - Continue sling. Non-operative with outpatient management for now, discussed with orthopedics whom recommended MRI for this patient for further evaluation for possible rotator cuff injury. - PRN Hydrocodone and IV Dilaudid while sedated. -shoulder MRI deferred for now as noted above. 15. Essential Hypertension, not active. - holding home medications, resume when pressures improve. 16. Tobacco use and dependence. Present on admission and active. - nicotine patch Placement -[facility] has reviewed and accepted him when he is ready. Likely many more days Code Status: Full Code, surrogate is patient's daughter. DVT: on Eliquis normally, now on Lovenox BID 1mg / kg, held prior to thoracentesis but will resume. Dispo: Remains ICU. On Vent and pressors. PLAN: -sedation vacation again today. -repeat spontaneous breathing trials today. -continue current medications. He appears to have a very low-level reserve. DPOA indicates full level of care, including reintubation if needed. Will have GOC discussion on 02/04 with POA. Quality VTE Deep Vein Thrombosis/Pulmonary Embolism Present on Admission: No
[2024-02-04 08:30] LABS: Add Manual Diff / Slide Review NO; Basophils Absolute Auto 100 /uL (0-100); Basophils Percent Auto 0.7 % (0-2); Eosinophils Absolute Auto 0 /uL (0-450); Eosinophils Percent Auto 0.4 % (2-4); Hematocrit 27.4 % (41-53); Hemoglobin 9.3 g/dL (13.5-17.5); Lymphocytes Absolute Auto 2200 /uL (1100-4500); Lymphocytes Percent Auto 19.7 % (25-40); Mean Corpuscular HGB Conc 33.9 % (30-36); Mean Corpuscular Hemoglobin 31.6 PG (26-34); Mean Corpuscular Volume 93.2 fL (80-100); Monocytes Absolute Auto 1300 /uL (0-900); Monocytes Percent Auto 12.1 % (3-14); Neutrophils Absolute Auto 7400 /uL (1500-7000); Neutrophils Percent Auto 67.1 % (50-75); Platelet Count 189 X10^3/uL (150-400); Red Blood Cell Count 2.94 X10^6/uL (4.5-5.9); Red Cell Distribution Width 14.3 % (11.6-14.8); White Blood Cell Count 11.1 X10^3/uL (4.5-11.0)
[2024-02-04 08:46] LABS: Lactate (Lactic Acid) 1.1 mmol/L (0.7-2.1)
[2024-02-04 08:47] LABS: Alanine Aminotransferase 103 IU/L (<50); Albumin 2.6 g/dL (3.5-5.0); Albumin Globulin Ratio 0.8 (1.0-2.8); Alkaline Phosphatase 512 U/L (38-126); Aspartate Aminotransferase 241 IU/L (17-59); BUN Creatinine Ratio 29.5 (6-22); Bilirubin Total 0.6 mg/dL (0.2-1.3); Blood Urea Nitrogen 36 mg/dL (9-20); Calcium 7.6 mg/dL (8.4-10.2); Carbon Dioxide 29 mmol/L (22-32); Chloride 96 mmol/L (98-107); Estimated Glomerular Filt Rate 60 mL/min (>60); Globulin 3.2 g/dL (1.7-4.1); Glucose 292 mg/dL (80-110); HEMOLYSIS < 15 (0-50); Potassium 3.3 mmol/L (3.4-5.1); Sodium 130 mmol/L (137-145); Total Protein 5.8 g/dL (6.3-8.2)
[2024-02-04] MEDS: PANTOPRAZOLE 40 MG VIAL IV (08:51)
[2024-02-04] MEDS: ENOXAPARIN 60 MG/0.6 ML SYRINGE SUBCUT ×2 (08:51→21:22)
[2024-02-04] MEDS: FUROSEMIDE 40 MG/4 ML VIAL 20 MG IV ×3 (08:51→21:22)
[2024-02-04] MEDS: SODIUM CHLORIDE 0.9% FLUSH 10 ML IV (08:52)
[2024-02-04 09:04] LABS: Troponin I 0.032 ng/mL (0.01-0.034)
[2024-02-04] MEDS: POTASSIUM CHLORIDE IN WATER 10 MEQ/100 ML PIGGYBACK 100 MEQ IV ×4 (09:21→12:33)
--- NOTE | 2024-02-04 09:47 | RT ---
PS5/CPAP5 WEANING TRIAL INITIATED AT [address] SAENZ. PLAN: CONTINUE ON PS TOLERATED. CONTACT DR. SAENZ IF PT REMAINS W/O DISTRESS ON PS AFTER 5 HOURS. RN UPDATED.
[2024-02-04] MEDS: FLUCONAZOLE 200 MG/100 ML PIGGYBACK 100 MG IV (11:11)
--- NOTE | 2024-02-04 11:26 | PC.NURSE ---
Day shift: Adult daughters Aruna and Eddy at bedside. Pt responding to simple commands such as squeeze hand, nod head. Propofol paused. Pt still requiring phenylephrine. VSS. SAT conducted. Pt continued to follow commands. SBT initiated. Pt able to tolerate for one hour and 35 minutes. Became tachypneic, shallow breathing, increased oral secretions. RT adjusted ventilator settings. O2 96%, VSS. Care ongoing. Will continue to monitor.
[2024-02-04] MEDS: FOLIC ACID 1 MG in SODIUM CHLORIDE 0.9% 100 ML 200.4 MG IV (11:48)
[2024-02-04] MEDS: PHENYLEPHRINE 20,000 MCG in DEXTROSE 5% IN WATER 250 ML 30 MCG IV (14:24)
--- NOTE | 2024-02-04 15:19 | CM.DPC ---
DCP Cont: Per MD, pt continues to be vented and attempting another sedation vacation to determine if pt might be able to be extubated vs possible need for trach placement for nursing home breathing needs. Pt's Advanced Directives state no artificial nutrition or intubation and in MD discussion with DPGEOVANNA Sommer she states she was not aware of his advanced directives and MD requested she be bedside to review the document and have Goals of Care bedside and ADÁN Sommer states she cannot be bedside until tomorrow 02/04 at 1830. plans to have ongoing discussion with DPOA tomorrow towards determining Trach Placement. Ethics committee meeting this week 02/05 at 0700 and MD aware in case needed after bedside discussion with DPOA tomorrow night. SW met bedside with pt (still intubated and sedated) and his two Dtrs Eddy and Aruna. Answered questions about process and options after trach placement of likely [facility] in [place] as local SNFs cannot manage that level of care. Answered questions regarding Hospice as they feel pt's Goals of Care are to be home and not pursuing ongoing treatment. SW explained pt would need to maintain his airways on oxygen to d/c home with Hospice and provided Hospice brochure and made referral for Info Visit so family would have information to present to other family members and help make informed decision. SW called [facility] and requested Info Visit today with Dtr Aruna [phone] and Dtr Eddy would be present as well. Plan: SW to follow closely as Goals of Care discussion needed with MD and ADÁN Sommer regarding pt's Advanced Directives and comfort care vs actively pursuing trach/peg and possible Ethics Committee consultation. JOSE RAMON Black
[2024-02-04] MEDS: THIAMINE 100 MG in SODIUM CHLORIDE 0.9% 100 ML 404 MG IV ×2 (15:49→21:22)
[2024-02-04] MEDS: ALBUTEROL/IPRATROPIUM 3 ML AMPUL INH ×2 (16:14→17:35)
--- NOTE | 2024-02-04 16:14 | PM.PN.EICU ---
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-sales planner care: Yes Patient Location: ICU Provider location (State): [place] Other participants/roles: RN Interval history: pt remians intubated and sedated fialed SBT today Current Medications Current Medications Medications: Home Medications lisinopril 10 mg tablet 5 mg (1/2 x 10 mg) PO BID #180 tabs 11/01/22 [Rx Confirmed 01/25/24] spironolactone 25 mg tablet 25 mg PO DAILY #90 tabs 02/06/23 [Rx Confirmed 01/25/24] metoprolol succinate 50 mg tablet,extended release 24 hr 50 mg PO BID #180 tabs 08/10/23 [Rx Confirmed 01/25/24] apixaban 2.5 mg tablet (Eliquis) 2.5 mg PO BID #60 tabs 08/27/23 [Rx Confirmed 01/25/24] atorvastatin 80 mg tablet 80 mg PO BEDTIME #30 tabs 10/24/23 [Rx Confirmed 01/25/24] furosemide 20 mg tablet 20 mg PO BID #180 tabs 11/12/23 [Rx Confirmed 01/25/24] Visit Medications (administered) Generic Name Dose Route Start Last Admin Trade Name Freq PRN Reason Stop Dose Admin Albuterol/Ipratropium 3 ml 01/30/24 02:01 02/04/24 16:14 Albuterol/Ipratropium 3 Ml Ampul INH 3 ml RTQ4HR PRN Administration Shortness Of Breath Amiodarone HCl 200 mg 02/02/24 09:00 02/03/24 08:25 Amiodarone 200 Mg Tablet PO 200 mg BID FRANKO Administration Chlorhexidine Gluconate 15 ml 01/30/24 06:00 02/04/24 12:19 Chlorhexidine Gluconate 15 Ml Cup PO 15 ml Q6HR FRANKO Administration Enoxaparin Sodium 60 mg 01/27/24 10:30 02/04/24 08:51 Enoxaparin 60 Mg/0.6 Ml Syringe SUBCUT 60 mg BID FRANKO Administration Fentanyl 25 mcg 01/30/24 13:02 01/30/24 15:31 Fentanyl 100 Mcg/2 Ml Inj IV 25 mcg Q1H PRN Administration Pain, Severe (7-10) Furosemide 20 mg 01/31/24 15:00 02/04/24 15:49 Furosemide 40 Mg/4 Ml Vial IV 20 mg TID FRANKO Administration dexmedeTOMIDine in 0.9 % NaCL 400 mcg in 100 mls @ 2.903 mls/hr 01/26/24 19:30 02/04/24 12:48 Precedex IV 0.8 mcg/kg/hr TITRATE FRANKO 11.612 mls/hr Administration Protocol 0.2 MCG/KG/HR Propofol 1,000 mg in 100 mls @ 1.742 mls/hr 01/30/24 00:45 02/04/24 13:20 Propofol IV 15 mcg/kg/min TITRATE FRANKO 5.225 mls/hr Titration Protocol 5 MCG/KG/MIN NOREPINEPHRINE BITARTRATE/D5W 4 mg in 250 mls @ 21.773 mls/hr 01/30/24 17:30 02/02/24 06:50 Levophed IV 0 mcg/kg/min TITRATE FRANKO 0 mls/hr Titration Protocol 0.1 MCG/KG/MIN Fluconazole 200 mg in 100 mls @ 100 mls/hr 01/31/24 11:00 02/04/24 12:18 Diflucan IV 02/13/24 11:59 Infused Q24H FRANKO Infusion Phenylephrine HCl 20,000 mcg/ 250 mls @ 75 mls/hr 02/02/24 06:36 02/04/24 14:24 Dextrose IV 40 mcg/min TITRATE FRANKO 30 mls/hr Administration Protocol 100 MCG/MIN Thiamine HCl 100 mg/ Sodium 101 mls @ 404 mls/hr 02/04/24 15:00 02/04/24 15:49 Chloride IV 404 mls/hr TID FRANKO Administration Folic Acid 1 mg/ Sodium 100.2 mls @ 200.4 mls/hr 02/04/24 11:00 02/04/24 13:22 Chloride IV Infused DAILY FRANKO Infusion Metoprolol Tartrate 5 mg 02/03/24 10:56 02/03/24 11:04 Metoprolol Tartrate 5 Mg/5 Ml Inj IV 5 mg Q1HR PRN Administration heart rate over 120 Nicotine 14 mg 01/25/24 12:45 02/04/24 09:14 Nicotine 14 Patch TOP Not Given DAILY FRANKO Ondansetron HCl 4 mg 01/24/24 22:11 01/26/24 18:06 Ondansetron 4 Mg/2 Ml Inj IV 4 mg Q6HR PRN Administration Nausea And Vomiting Pantoprazole Sodium 40 mg 01/30/24 09:00 02/04/24 08:51 Pantoprazole 40 Mg Vial IV 40 mg DAILY FRANKO Administration Sodium Chloride 10 ml 02/01/24 00:28 02/02/24 05:46 Sodium Chloride 0.9% Flush IV 10 ml PRN PRN Administration Flush Sodium Chloride 10 ml 02/01/24 09:00 02/04/24 08:52 Sodium Chloride 0.9% Flush IV 10 ml BID FRANKO Administration Objective Ventilator Parameters: Ventilator Settings FiO2 21 CPAP Pressure Amount 5 RT Vent Frequency 14 Ventilator Tidal Volume 400 Exhaled Vt/kg IBW 5 Positive End Expiratory 5 Pressure Ventilator Pressure Support 5 Inspiratory Phase Time 1.0 I:E Ratio 1:3.3 Patient Position HOB >= 30 degrees Labs 02/04/24 08:00 02/04/24 08:00 Labs: Laboratory Results - last 24 hr 02/04/24 08:00 WBC 11.1 H RBC 2.94 L Hgb 9.3 L Hct 27.4 L MCV 93.2 MCH 31.6 MCHC 33.9 RDW 14.3 Plt Count 189 Neut % (Auto) 67.1 Lymph % (Auto) 19.7 L [place] % (Auto) 12.1 Eos % (Auto) 0.4 L Baso % (Auto) 0.7 Neut # (Auto) 7400 H Lymph # (Auto) 2200 [place] # (Auto) 1300 H Eos # (Auto) 0 Baso # (Auto) 100 Sodium 130 L Potassium 3.3 L Chloride 96 L Carbon Dioxide 29 BUN 36 H Creatinine 1.22 Estimated GFR 60 BUN/Creatinine Ratio 29.5 H Glucose 292 H D Lactate 1.1 Calcium 7.6 L Total Bilirubin 0.6 AST 241 H ALT 103 H Alkaline Phosphatase 512 H Troponin I 0.032 Total Protein 5.8 L Albumin 2.6 L Globulin 3.2 Albumin/Globulin Ratio 0.8 L Exam Vital Signs (past 8 hours): - 02/04/24 08:15 02/04/24 08:15 02/04/24 08:30 Temperature Pulse Rate 73 63 Respiratory Rate 14 14 Blood Pressure 129/59 L Pulse Oximetry 98 97 Oxygen Delivery Method 02/04/24 08:30 02/04/24 08:45 02/04/24 08:45 Temperature Pulse Rate 66 Respiratory Rate 14 Blood Pressure 132/63 135/64 Pulse Oximetry 97 Oxygen Delivery Method 02/04/24 09:00 02/04/24 09:00 02/04/24 09:15 Temperature Pulse Rate 71 72 Respiratory Rate 14 14 Blood Pressure 128/62 Pulse Oximetry 100 95 Oxygen Delivery Method 02/04/24 09:15 02/04/24 09:30 02/04/24 09:30 Temperature Pulse Rate 68 Respiratory Rate 14 Blood Pressure 120/58 L 119/57 L Pulse Oximetry 95 Oxygen Delivery Method 02/04/24 09:45 02/04/24 09:45 02/04/24 10:00 Temperature Pulse Rate 71 71 Respiratory Rate 18 20 Blood Pressure 110/53 L Pulse Oximetry 100 100 Oxygen Delivery Method 02/04/24 10:00 02/04/24 10:15 02/04/24 10:15 Temperature Pulse Rate 87 Respiratory Rate 26 H Blood Pressure 111/53 L 106/58 L Pulse Oximetry 95 Oxygen Delivery Method 02/04/24 10:30 02/04/24 10:30 02/04/24 10:45 Temperature Pulse Rate 76 Respiratory Rate 26 H Blood Pressure 119/59 L 121/56 L Pulse Oximetry 100 Oxygen Delivery Method 02/04/24 10:45 02/04/24 11:00 02/04/24 11:00 Temperature Pulse Rate 74 83 Respiratory Rate 24 27 H Blood Pressure 112/57 L Pulse Oximetry 100 100 Oxygen Delivery Method 02/04/24 11:00 02/04/24 11:14 02/04/24 11:15 Temperature 98.8 F Pulse Rate Respiratory Rate Blood Pressure 127/57 L Pulse Oximetry 100 Oxygen Delivery Method 02/04/24 11:15 02/04/24 11:30 02/04/24 11:30 Temperature Pulse Rate 86 81 Respiratory Rate 30 H 18 Blood Pressure 121/66 Pulse Oximetry 100 98 Oxygen Delivery Method 02/04/24 11:45 02/04/24 11:45 02/04/24 12:00 Temperature Pulse Rate 81 69 Respiratory Rate 19 15 Blood Pressure 117/55 L Pulse Oximetry 95 96 Oxygen Delivery Method 02/04/24 12:00 02/04/24 12:00 02/04/24 12:00 Temperature 98.9 F Pulse Rate Respiratory Rate Blood Pressure 129/76 Pulse Oximetry Oxygen Delivery Method Mechanical Ventilation 02/04/24 12:15 02/04/24 12:15 02/04/24 12:30 Temperature Pulse Rate 67 86 Respiratory Rate 14 16 Blood Pressure 131/57 L Pulse Oximetry 96 94 Oxygen Delivery Method 02/04/24 12:31 02/04/24 12:31 02/04/24 12:45 Temperature Pulse Rate 81 Respiratory Rate 16 Blood Pressure 109/44 L 75/37 L Pulse Oximetry 94 Oxygen Delivery Method 02/04/24 12:45 02/04/24 13:00 02/04/24 13:00 Temperature Pulse Rate 84 74 Respiratory Rate 19 18 Blood Pressure 128/58 L Pulse Oximetry 93 100 Oxygen Delivery Method 02/04/24 13:15 02/04/24 13:15 02/04/24 13:30 Temperature Pulse Rate 74 73 Respiratory Rate 20 22 Blood Pressure 118/56 L Pulse Oximetry 100 100 Oxygen Delivery Method 02/04/24 13:30 02/04/24 13:45 02/04/24 13:45 Temperature Pulse Rate 72 Respiratory Rate 15 Blood Pressure 112/50 L 110/53 L Pulse Oximetry 96 Oxygen Delivery Method 02/04/24 14:00 02/04/24 14:00 02/04/24 14:15 Temperature 99.2 F Pulse Rate 73 69 Respiratory Rate 15 15 Blood Pressure 122/58 L Pulse Oximetry 95 95 Oxygen Delivery Method 02/04/24 14:15 02/04/24 14:30 02/04/24 14:30 Temperature Pulse Rate 67 Respiratory Rate 15 Blood Pressure 129/60 110/54 L Pulse Oximetry 94 Oxygen Delivery Method 02/04/24 14:45 02/04/24 14:45 02/04/24 15:00 Temperature Pulse Rate 68 75 Respiratory Rate 15 14 Blood Pressure 121/58 L Pulse Oximetry 95 95 Oxygen Delivery Method 02/04/24 15:00 Temperature Pulse Rate Respiratory Rate Blood Pressure 128/58 L Pulse Oximetry Oxygen Delivery Method Fraction of Inspired Oxygen 21 SaO2/FiO2 Ratio 476 Oxygen Delivery Method Mechanical Ventilation Oxygen Flow Rate 0 Narrative Exam Narrative: intubated and sedated synchronous follows commands Quality TeleICU VTE Deep Vein Thrombosis/Pulmonary Embolism Present on Admission: No Assessment & Plan Assessment and plan (1) Pleural effusion: Problem details: Bilateral moderate effusions most likely reflecting volume overload in patient with poor underlying health and CHF. Status: Acute (2) Heart failure with reduced ejection fraction: Problem details: As above, increase diuresis. 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 fentanyl iv prn for pain -- RASS goal 0 to -1 -- DAILY SAT- with goal of extubating when mental status improved -- i doubt he will pass sbt in coming days, family agreeable for trach by sunday, this may conflciut wiht his advanced directuved but will dicuss depending on SBT tomorrow RESP: # Acute hypoxemic respiratory failure- resolving -- Secondary to aspiration PNA and pulmonary edema/chf --chest ct showing bilatreal pna c/f aspiration plus bilateral pleural effusion -- cxr 01/31 showing only aoveolar edema -- continue diuresis and abx -- vent/sedation bundle -- trend abg -- fio2 needs at 30% today, secretions improved -- thora done 01/30, 800 cc removed, likely transudative c/w CHF. 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, now on lovenox sq bid, can transition back to PO eliquis when more stable, reliably tolerating PO -- Goal HR < 110 # CHF -- continue lasix 20 mg TID for now, for even to slightly neg fluid balance -- BNP continues to dowtrend -- Strict I/O,, valdivia - - trend bmp : -- High lytes goal -- Monitor UOP as above ID: # Aspiration PNA -- follow blood cx - ngtd -- follow resp cx - yeast -- resp cultures repeated today- -- procalcitonin neg -- on zosyn, diflucan -- given sectretion load will continue abx ENDO: -- Goal BS < 180 FEN - tolerating slow advancement of feeds agree to hold TPN MSK- has left humeral head fracture- POA, in sling. will need MRI to r/o rotator cuff tear. ortho has been consulted Has Gi and DVT ppx Full code, GOC discussions ongoing plan for trach newxt week total cct 35 min D/w bedside RN. Time Spent With Patient Time with patient: 30 to 49 minutes with 50% spent counseling/coordinating care
[2024-02-04] MEDS: polyethylene glycoL 3350 17 GM POWD.PACK PO (16:40)
[2024-02-04] MEDS: SENNOSIDES 8.6 MG TABLET PO (16:41)
[2024-02-04] MEDS: METOPROLOL TARTRATE 5 MG/5 ML INJ IV (17:48)
[2024-02-05] VITALS (97 sets, daily range): BP systolic 95–173; BP diastolic 48–90; PULSE 60–136; RESP 0–52; TEMP 36.7–38.3; O2SAT 94–100
--- NOTE | 2024-02-05 | DI.RAD.S_ITS ---
PROCEDURE: XR CHEST 1V INDICATIONS: feeding tube placement TECHNIQUE: One view of the chest was acquired. COMPARISON: [facility], CR, XR KUB, 02/02/2024, 14:27. [facility], CR, XR CHEST 1V, 02/01/2024, 14:49. [facility], CR, XR CHEST 1V, 01/31/2024, 18:22. FINDINGS: Surgical changes and devices: Enteric tube is seen traversing the diaphragm with tip and side hole projecting over the left upper quadrant. A right-sided PICC is again seen with tip projecting over the superior cavoatrial junction. Endotracheal tube is seen in unchanged position. Lungs and pleura: Bilateral pleural effusions and bibasilar atelectasis. Mediastinum: Mediastinal contours appear normal. Heart size is normal. Bones and chest wall: No suspicious bony lesions. Overlying soft tissues appear unremarkable. IMPRESSION: Enteric tube is seen in satisfactory position. Additional lines and tubes appear stable. Dictated by: Masood Bhat M.D. on 02/05/2024 at 19:08 Approved by: Masood Bhat M.D. on 02/05/2024 at 19:09
[2024-02-05] MEDS: CHLORHEXIDINE GLUCONATE 15 ML CUP PO ×4 (00:01→18:04)
[2024-02-05] MEDS: SODIUM CHLORIDE 0.9% FLUSH 10 ML IV ×3 (00:03→20:35)
[2024-02-05] MEDS: PHENYLEPHRINE 20,000 MCG in DEXTROSE 5% IN WATER 250 ML 37.5 MCG IV ×2 (04:10→11:23)
[2024-02-05] MEDS: propofoL 1,000 MG/100 ML VIAL 5.225 MG IV ×2 (04:16→17:57)
[2024-02-05] MEDS: dexmedeTOMIDine in 0.9 % NaCL 400 MCG/100 ML PLAST..BAG 11.612 MCG IV ×2 (05:43→15:04)
[2024-02-05] MEDS: ENOXAPARIN 60 MG/0.6 ML SYRINGE SUBCUT (08:13)
[2024-02-05] MEDS: FUROSEMIDE 40 MG/4 ML VIAL 20 MG IV ×3 (08:13→20:35)
[2024-02-05] MEDS: PANTOPRAZOLE 40 MG VIAL IV (08:13)
[2024-02-05] MEDS: FOLIC ACID 1 MG in SODIUM CHLORIDE 0.9% 100 ML 200.4 MG IV (08:14)
[2024-02-05] MEDS: THIAMINE 100 MG in SODIUM CHLORIDE 0.9% 100 ML 404 MG IV ×3 (08:15→20:38)
[2024-02-05 09:07] LABS: Add Manual Diff / Slide Review NO; Basophils Absolute Auto 100 /uL (0-100); Basophils Percent Auto 0.8 % (0-2); Eosinophils Absolute Auto 100 /uL (0-450); Eosinophils Percent Auto 0.7 % (2-4); Hematocrit 29.1 % (41-53); Hemoglobin 9.5 g/dL (13.5-17.5); Lymphocytes Absolute Auto 2100 /uL (1100-4500); Lymphocytes Percent Auto 19.4 % (25-40); Mean Corpuscular HGB Conc 32.7 % (30-36); Mean Corpuscular Hemoglobin 30.5 PG (26-34); Mean Corpuscular Volume 93.3 fL (80-100); Monocytes Absolute Auto 1000 /uL (0-900); Monocytes Percent Auto 8.8 % (3-14); Neutrophils Absolute Auto 7800 /uL (1500-7000); Neutrophils Percent Auto 70.3 % (50-75); Platelet Count 196 X10^3/uL (150-400); Red Blood Cell Count 3.12 X10^6/uL (4.5-5.9); White Blood Cell Count 11.1 X10^3/uL (4.5-11.0)
[2024-02-05 09:19] LABS: Alanine Aminotransferase 118 IU/L (<50); Albumin 2.7 g/dL (3.5-5.0); Albumin Globulin Ratio 0.9 (1.0-2.8); Alkaline Phosphatase 514 U/L (38-126); Aspartate Aminotransferase 201 IU/L (17-59); BUN Creatinine Ratio 26.3 (6-22); Bilirubin Total 0.6 mg/dL (0.2-1.3); Blood Urea Nitrogen 35 mg/dL (9-20); Calcium 8.2 mg/dL (8.4-10.2); Carbon Dioxide 31 mmol/L (22-32); Chloride 102 mmol/L (98-107); Estimated Glomerular Filt Rate 54 mL/min (>60); Globulin 3.1 g/dL (1.7-4.1); Glucose 141 mg/dL (80-110); HEMOLYSIS < 15 (0-50); Potassium 3.7 mmol/L (3.4-5.1); Sodium 136 mmol/L (137-145); Total Protein 5.8 g/dL (6.3-8.2)
[2024-02-05] MEDS: METOPROLOL IR 25 MG TABLET 12.5 MG PO ×2 (11:17→20:37)
[2024-02-05] MEDS: FLUCONAZOLE 200 MG/100 ML PIGGYBACK 100 MG IV (11:18)
[2024-02-05] MEDS: MIDODRINE HCL 5 MG TABLET 10 MG PO ×2 (11:22→18:02)
--- NOTE | 2024-02-05 13:30 | PM.PN.EICU ---
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-iron pourer care: Yes Patient Location: ICU Provider location (State): [place] Other participants/roles: RN Interval history: Pt remains intubated, failed SBT again today - pending [facility] discussion this evening Current Medications Current Medications Medications: Home Medications lisinopril 10 mg tablet 5 mg (1/2 x 10 mg) PO BID #180 tabs 11/01/22 [Rx Confirmed 01/25/24] spironolactone 25 mg tablet 25 mg PO DAILY #90 tabs 02/06/23 [Rx Confirmed 01/25/24] metoprolol succinate 50 mg tablet,extended release 24 hr 50 mg PO BID #180 tabs 08/10/23 [Rx Confirmed 01/25/24] apixaban 2.5 mg tablet (Eliquis) 2.5 mg PO BID #60 tabs 08/27/23 [Rx Confirmed 01/25/24] atorvastatin 80 mg tablet 80 mg PO BEDTIME #30 tabs 10/24/23 [Rx Confirmed 01/25/24] furosemide 20 mg tablet 20 mg PO BID #180 tabs 11/12/23 [Rx Confirmed 01/25/24] Visit Medications (administered) Generic Name Dose Route Start Last Admin Trade Name Freq PRN Reason Stop Dose Admin Albuterol/Ipratropium 3 ml 01/30/24 02:01 02/04/24 17:35 Albuterol/Ipratropium 3 Ml Ampul INH 3 ml RTQ4HR PRN Administration Shortness Of Breath Amiodarone HCl 200 mg 02/02/24 09:00 02/03/24 08:25 Amiodarone 200 Mg Tablet PO 200 mg BID FRANKO Administration Chlorhexidine Gluconate 15 ml 01/30/24 06:00 02/05/24 11:22 Chlorhexidine Gluconate 15 Ml Cup PO 15 ml Q6HR RFANKO Administration Enoxaparin Sodium 60 mg 01/27/24 10:30 02/05/24 08:13 Enoxaparin 60 Mg/0.6 Ml Syringe SUBCUT 60 mg BID FRANKO Administration Fentanyl 25 mcg 01/30/24 13:02 01/30/24 15:31 Fentanyl 100 Mcg/2 Ml Inj IV 25 mcg Q1H PRN Administration Pain, Severe (7-10) Furosemide 20 mg 01/31/24 15:00 02/05/24 08:13 Furosemide 40 Mg/4 Ml Vial IV 20 mg TID FRANKO Administration dexmedeTOMIDine in 0.9 % NaCL 400 mcg in 100 mls @ 2.903 mls/hr 01/26/24 19:30 02/05/24 10:30 Precedex IV 0.8 mcg/kg/hr TITRATE FRANKO 11.612 mls/hr Titration Protocol 0.2 MCG/KG/HR Propofol 1,000 mg in 100 mls @ 1.742 mls/hr 01/30/24 00:45 02/05/24 10:30 Propofol IV 15 mcg/kg/min TITRATE FRANKO 5.225 mls/hr Titration Protocol 5 MCG/KG/MIN NOREPINEPHRINE BITARTRATE/D5W 4 mg in 250 mls @ 21.773 mls/hr 01/30/24 17:30 02/02/24 06:50 Levophed IV 0 mcg/kg/min TITRATE FRANKO 0 mls/hr Titration Protocol 0.1 MCG/KG/MIN Fluconazole 200 mg in 100 mls @ 100 mls/hr 01/31/24 11:00 02/05/24 11:18 Diflucan IV 02/13/24 11:59 100 mls/hr Q24H FRANKO Administration Phenylephrine HCl 20,000 mcg/ 250 mls @ 75 mls/hr 02/02/24 06:36 02/05/24 11:23 Dextrose IV 50 mcg/min TITRATE FRANKO 37.5 mls/hr Administration Protocol 100 MCG/MIN Thiamine HCl 100 mg/ Sodium 101 mls @ 404 mls/hr 02/04/24 15:00 02/05/24 09:12 Chloride IV Infused TID FRANKO Infusion Folic Acid 1 mg/ Sodium 100.2 mls @ 200.4 mls/hr 02/04/24 11:00 02/05/24 09:13 Chloride IV Infused DAILY FRANKO Infusion Metoprolol Tartrate 5 mg 02/03/24 10:56 02/04/24 17:48 Metoprolol Tartrate 5 Mg/5 Ml Inj IV 5 mg Q1HR PRN Administration heart rate over 120 Metoprolol Tartrate 12.5 mg 02/04/24 21:00 02/05/24 11:17 Metoprolol Ir 25 Mg Tablet PO 12.5 mg BID FRANKO Administration Midodrine 10 mg 02/05/24 12:00 02/05/24 11:22 Midodrine Hcl 5 Mg Tablet PO 10 mg 0600,1200,1800 FRANKO Administration Nicotine 14 mg 01/25/24 12:45 02/05/24 08:16 Nicotine 14 Patch TOP Not Given DAILY FRANKO Ondansetron HCl 4 mg 01/24/24 22:11 01/26/24 18:06 Ondansetron 4 Mg/2 Ml Inj IV 4 mg Q6HR PRN Administration Nausea And Vomiting Pantoprazole Sodium 40 mg 01/30/24 09:00 02/05/24 08:13 Pantoprazole 40 Mg Vial IV 40 mg DAILY FRANKO Administration Polyethylene Glycol 17 gm 02/04/24 16:10 02/05/24 10:40 Polyethylene Glycol 3350 17 Gm Powd.Pack PO Not Given DAILY FRANKO Sennosides 8.6 mg 02/04/24 16:10 02/05/24 10:40 Sennosides 8.6 Mg Tablet PO Not Given DAILY FRANKO Sodium Chloride 10 ml 02/01/24 00:28 02/02/24 05:46 Sodium Chloride 0.9% Flush IV 10 ml PRN PRN Administration Flush Sodium Chloride 10 ml 02/01/24 09:00 02/05/24 11:18 Sodium Chloride 0.9% Flush IV 10 ml BID FRANKO Administration Objective Ventilator Parameters: Ventilator Settings FiO2 25 CPAP Pressure Amount 5 RT Vent Frequency 14 Ventilator Tidal Volume 400 Exhaled Vt/kg IBW 5 Positive End Expiratory 5 Pressure Ventilator Pressure Support 5 Inspiratory Phase Time 1 I:E Ratio 1:3.3 Patient Position HOB >= 30 degrees Labs 02/05/24 09:00 02/05/24 09:00 Labs: Laboratory Results - last 24 hr 02/05/24 09:00 WBC 11.1 H RBC 3.12 L Hgb 9.5 L Hct 29.1 L MCV 93.3 MCH 30.5 MCHC 32.7 RDW 14.0 Plt Count 196 Neut % (Auto) 70.3 Lymph % (Auto) 19.4 L [place] % (Auto) 8.8 Eos % (Auto) 0.7 L Baso % (Auto) 0.8 Neut # (Auto) 7800 H Lymph # (Auto) 2100 [place] # (Auto) 1000 H Eos # (Auto) 100 Baso # (Auto) 100 Sodium 136 L Potassium 3.7 Chloride 102 Carbon Dioxide 31 BUN 35 H Creatinine 1.33 H Estimated GFR 54 L BUN/Creatinine Ratio 26.3 H Glucose 141 H D Calcium 8.2 L Total Bilirubin 0.6 AST 201 H ALT 118 H Alkaline Phosphatase 514 H Total Protein 5.8 L Albumin 2.7 L Globulin 3.1 Albumin/Globulin Ratio 0.9 L Exam Vital Signs (past 8 hours): - 02/05/24 05:45 02/05/24 05:45 02/05/24 06:00 Temperature Pulse Rate 89 91 H Respiratory Rate 18 16 Blood Pressure 125/58 L Pulse Oximetry 98 100 Oxygen Delivery Method 02/05/24 06:00 02/05/24 06:15 02/05/24 06:15 Temperature 99.8 F H Pulse Rate 83 Respiratory Rate 14 Blood Pressure 139/63 Pulse Oximetry 99 Oxygen Delivery Method 02/05/24 06:15 02/05/24 06:30 02/05/24 06:30 Temperature Pulse Rate 84 Respiratory Rate 17 Blood Pressure 136/62 124/69 Pulse Oximetry 99 Oxygen Delivery Method 02/05/24 06:45 02/05/24 06:45 02/05/24 07:00 Temperature Pulse Rate 83 85 Respiratory Rate 17 15 Blood Pressure 139/60 Pulse Oximetry 99 99 Oxygen Delivery Method 02/05/24 07:00 02/05/24 07:08 02/05/24 07:15 Temperature Pulse Rate 84 Respiratory Rate 17 Blood Pressure 152/68 H Pulse Oximetry 99 Oxygen Delivery Method Mechanical Ventilation 02/05/24 07:15 02/05/24 07:30 02/05/24 07:30 Temperature Pulse Rate 84 Respiratory Rate 17 Blood Pressure 134/63 132/62 Pulse Oximetry 99 Oxygen Delivery Method 02/05/24 07:45 02/05/24 07:45 02/05/24 08:00 Temperature Pulse Rate 84 Respiratory Rate 16 Blood Pressure 137/63 136/63 Pulse Oximetry 99 Oxygen Delivery Method 02/05/24 08:00 02/05/24 08:00 02/05/24 08:15 Temperature Pulse Rate 74 81 Respiratory Rate 15 14 Blood Pressure Pulse Oximetry 99 99 Oxygen Delivery Method Mechanical Ventilation 02/05/24 08:15 02/05/24 09:00 02/05/24 09:00 Temperature Pulse Rate 97 H Respiratory Rate 15 Blood Pressure 132/60 95/55 L Pulse Oximetry 100 Oxygen Delivery Method 02/05/24 09:13 02/05/24 09:15 02/05/24 09:15 Temperature Pulse Rate 94 H Respiratory Rate 20 Blood Pressure 99/51 L Pulse Oximetry 99 99 Oxygen Delivery Method 02/05/24 09:30 02/05/24 09:30 02/05/24 09:45 Temperature Pulse Rate 105 H 108 H Respiratory Rate 27 H 31 H Blood Pressure 146/53 H Pulse Oximetry 94 100 Oxygen Delivery Method 02/05/24 09:45 02/05/24 10:00 02/05/24 10:00 Temperature Pulse Rate 118 H Respiratory Rate 25 H Blood Pressure 97/49 L 97/54 L Pulse Oximetry 98 Oxygen Delivery Method 02/05/24 10:15 02/05/24 10:15 02/05/24 10:30 Temperature 98.6 F Pulse Rate 113 H 136 H Respiratory Rate 28 H 24 Blood Pressure 106/58 L Pulse Oximetry 97 94 Oxygen Delivery Method 02/05/24 10:30 02/05/24 10:45 02/05/24 10:45 Temperature Pulse Rate 106 H Respiratory Rate 17 Blood Pressure 110/58 L 112/57 L Pulse Oximetry 98 Oxygen Delivery Method 02/05/24 11:00 02/05/24 11:00 02/05/24 11:15 Temperature Pulse Rate 121 H 101 H Respiratory Rate 19 18 Blood Pressure 95/51 L Pulse Oximetry 98 98 Oxygen Delivery Method 02/05/24 11:15 02/05/24 11:30 02/05/24 11:30 Temperature Pulse Rate 98 H Respiratory Rate 18 Blood Pressure 103/66 109/58 L Pulse Oximetry 98 Oxygen Delivery Method 02/05/24 11:45 02/05/24 11:45 02/05/24 12:00 Temperature 98.9 F Pulse Rate 87 Respiratory Rate 14 Blood Pressure 115/54 L Pulse Oximetry 100 Oxygen Delivery Method 02/05/24 12:00 02/05/24 12:00 02/05/24 12:00 Temperature Pulse Rate 79 Respiratory Rate 14 Blood Pressure 122/57 L Pulse Oximetry 99 Oxygen Delivery Method Mechanical Ventilation 02/05/24 12:15 02/05/24 12:15 02/05/24 12:30 Temperature Pulse Rate 81 85 Respiratory Rate 15 15 Blood Pressure 126/59 L Pulse Oximetry 100 100 Oxygen Delivery Method 02/05/24 12:30 Temperature Pulse Rate Respiratory Rate Blood Pressure 132/69 Pulse Oximetry Oxygen Delivery Method Fraction of Inspired Oxygen 25 SaO2/FiO2 Ratio 476 Oxygen Delivery Method Mechanical Ventilation Oxygen Flow Rate 0 Narrative Exam Narrative: intubated synchronous with vent following commands rate controlled Quality TeleICU VTE Deep Vein Thrombosis/Pulmonary Embolism Present on Admission: No Assessment & Plan Assessment and plan (1) Pleural effusion: Problem details: Bilateral moderate effusions most likely reflecting volume overload in patient with poor underlying health and CHF. Status: Acute (2) Heart failure with reduced ejection fraction: Problem details: As above, increase diuresis. 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 fentanyl iv prn for pain -- RASS goal 0 to -1 -- DAILY SAT- with goal of extubating when mental status improved -- i doubt he will pass sbt in coming days, family agreeable for trach by sunday, this may conflciut wiht his advanced directuved but I spoke with Dr Morales - we will discuss with daughter this evening RESP: # Acute hypoxemic respiratory failure- resolving -- Secondary to aspiration PNA and pulmonary edema/chf --chest ct showing bilatreal pna c/f aspiration plus bilateral pleural effusion -- cxr 01/31 showing only aoveolar edema -- continue diuresis and abx -- vent/sedation bundle -- trend abg -- fio2 needs at 30% today, secretions improved -- thora done 01/30, 800 cc removed, likely transudative c/w CHF. 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, now on lovenox sq bid, can transition back to PO eliquis when more stable, reliably tolerating PO -- Goal HR < 110 - ami oheld , lft trending down, now on lopressor and midodrine # CHF -- continue lasix 20 mg TID for now, for even to slightly neg fluid balance -- BNP continues to dowtrend -- Strict I/O,, valdivia - - trend bmp : -- High lytes goal -- Monitor UOP as above ID: # Aspiration PNA -- follow blood cx - ngtd -- follow resp cx - yeast -- resp cultures repeated today- -- procalcitonin neg -- on zosyn, diflucan -- given sectretion load will continue abx ENDO: -- Goal BS < 180 FEN - tolerating slow advancement of feeds MSK- has left humeral head fracture- POA, in sling. will need MRI to r/o rotator cuff tear, f/u ortho Has Gi and DVT ppx Full code, GOC discussions ongoing total cct 35 min D/w bedside RN. Time Spent With Patient Time with patient: 30 to 49 minutes with 50% spent counseling/coordinating care
--- NOTE | 2024-02-05 15:56 | CM.DPC ---
DCP Cont: Per MD and RN, attempted breathing trial again today and pt did a little better than prior attempts but was not able to be successful with extubation. confirms he will make Ethics Committee referral today as pt's wishes currently not being followed by DPGE[facility]ANNA and pt's Advanced Directives a legal document and hopeful to discuss this further bedside with DPOA. SW spoke to Salvatore at [facility] and she confirms she completed Hospice Info Visit with Celia Valdovinos and provided information and answered questions and aware of further discussion needed with MD and ADÁN this evening and pt still intubated but Salvatore currently holding a spot for patient this week on 02/06 between [id number] in case needed. SW met bedside with Celia Valdovinos and she confirms she is aware of the above and awaiting her sister/ADÁN Ros to be bedside this evening at 1830 with for Goals of Care discussion. Plan: SW to follow closely in the AM to determine the outcome of the Goals of Care discussion scheduled with ADÁN perales at 1830 with regarding pt's Advanced Directives towards comfort care or pursuing Trach/PEG. Margot Zaldivar, DATA WAREHOUSING SPECIALIST
[2024-02-05] MEDS: fentaNYL 100 MCG/2 ML INJ 25 MCG IV (17:59)
[2024-02-05] MEDS: PHENYLEPHRINE 20,000 MCG in DEXTROSE 5% IN WATER 250 ML 22.5 MCG IV (18:04)
--- NOTE | 2024-02-05 18:19 | P.PN_ITS ---
Subjective Subjective Interval history: Patient failed SBT again this morning. GOC discussion planned with POA daughter this evening after she gets off work. Exam Vital Signs (past 8 hours): - 02/05/24 10:30 02/05/24 10:30 02/05/24 10:45 Temperature Pulse Rate 136 H 106 H Respiratory Rate 24 17 Blood Pressure 110/58 L Pulse Oximetry 94 98 Oxygen Delivery Method 02/05/24 10:45 02/05/24 11:00 02/05/24 11:00 Temperature Pulse Rate 121 H Respiratory Rate 19 Blood Pressure 112/57 L 95/51 L Pulse Oximetry 98 Oxygen Delivery Method 02/05/24 11:15 02/05/24 11:15 02/05/24 11:30 Temperature Pulse Rate 101 H 98 H Respiratory Rate 18 18 Blood Pressure 103/66 Pulse Oximetry 98 98 Oxygen Delivery Method 02/05/24 11:30 02/05/24 11:45 02/05/24 11:45 Temperature Pulse Rate 87 Respiratory Rate 14 Blood Pressure 109/58 L 115/54 L Pulse Oximetry 100 Oxygen Delivery Method 02/05/24 12:00 02/05/24 12:00 02/05/24 12:00 Temperature 98.9 F Pulse Rate 79 Respiratory Rate 14 Blood Pressure 122/57 L Pulse Oximetry 99 Oxygen Delivery Method 02/05/24 12:00 02/05/24 12:15 02/05/24 12:15 Temperature Pulse Rate 81 Respiratory Rate 15 Blood Pressure 126/59 L Pulse Oximetry 100 Oxygen Delivery Method Mechanical Ventilation 02/05/24 12:30 02/05/24 12:30 02/05/24 12:45 Temperature Pulse Rate 85 Respiratory Rate 15 Blood Pressure 132/69 147/65 H Pulse Oximetry 100 Oxygen Delivery Method 02/05/24 12:45 02/05/24 13:00 02/05/24 13:00 Temperature Pulse Rate 74 83 Respiratory Rate 14 15 Blood Pressure 132/62 Pulse Oximetry 100 100 Oxygen Delivery Method 02/05/24 13:15 02/05/24 13:15 02/05/24 13:30 Temperature Pulse Rate 86 88 Respiratory Rate 14 18 Blood Pressure 123/56 L Pulse Oximetry 99 99 Oxygen Delivery Method 02/05/24 13:30 02/05/24 13:45 02/05/24 13:45 Temperature Pulse Rate 93 H Respiratory Rate 17 Blood Pressure 125/71 127/55 L Pulse Oximetry 99 Oxygen Delivery Method 02/05/24 14:00 02/05/24 14:00 02/05/24 14:15 Temperature Pulse Rate 80 Respiratory Rate 15 Blood Pressure 136/60 141/63 H Pulse Oximetry 98 Oxygen Delivery Method 02/05/24 14:15 02/05/24 14:30 02/05/24 14:30 Temperature Pulse Rate 69 74 Respiratory Rate 14 15 Blood Pressure 146/68 H Pulse Oximetry 99 99 Oxygen Delivery Method 02/05/24 14:45 02/05/24 14:45 02/05/24 15:00 Temperature Pulse Rate 70 69 Respiratory Rate 14 14 Blood Pressure 156/67 H Pulse Oximetry 100 100 Oxygen Delivery Method 02/05/24 15:00 02/05/24 15:15 02/05/24 15:15 Temperature Pulse Rate 79 Respiratory Rate 14 Blood Pressure 150/69 H 155/69 H Pulse Oximetry 100 Oxygen Delivery Method 02/05/24 15:30 02/05/24 15:30 02/05/24 15:45 Temperature Pulse Rate 71 74 Respiratory Rate 14 14 Blood Pressure 151/66 H Pulse Oximetry 100 100 Oxygen Delivery Method 02/05/24 15:45 02/05/24 16:00 02/05/24 16:00 Temperature Pulse Rate 73 Respiratory Rate 14 Blood Pressure 148/73 H 143/64 H Pulse Oximetry 100 Oxygen Delivery Method 02/05/24 16:15 02/05/24 16:15 02/05/24 16:30 Temperature Pulse Rate 70 76 Respiratory Rate 14 14 Blood Pressure 146/65 H Pulse Oximetry 100 100 Oxygen Delivery Method 02/05/24 16:30 02/05/24 16:45 02/05/24 16:45 Temperature Pulse Rate 74 Respiratory Rate 14 Blood Pressure 132/63 117/58 L Pulse Oximetry 100 Oxygen Delivery Method 02/05/24 17:00 02/05/24 17:00 Temperature Pulse Rate 67 Respiratory Rate 14 Blood Pressure 121/56 L Pulse Oximetry 100 Oxygen Delivery Method Fraction of Inspired Oxygen 25 SaO2/FiO2 Ratio 476 Oxygen Delivery Method Mechanical Ventilation Oxygen Flow Rate 0 Narrative Exam Narrative: Intubated and sedated. NAD Lungs clear heart regular Abdomen ND, NT Legs free of edema. Cachectic. Objective Labs 02/05/24 09:00 02/05/24 09:00 Labs: Laboratory Results - last 24 hr 02/05/24 09:00 WBC 11.1 H RBC 3.12 L Hgb 9.5 L Hct 29.1 L MCV 93.3 MCH 30.5 MCHC 32.7 RDW 14.0 Plt Count 196 Neut % (Auto) 70.3 Lymph % (Auto) 19.4 L [place] % (Auto) 8.8 Eos % (Auto) 0.7 L Baso % (Auto) 0.8 Neut # (Auto) 7800 H Lymph # (Auto) 2100 [place] # (Auto) 1000 H Eos # (Auto) 100 Baso # (Auto) 100 Sodium 136 L Potassium 3.7 Chloride 102 Carbon Dioxide 31 BUN 35 H Creatinine 1.33 H Estimated GFR 54 L BUN/Creatinine Ratio 26.3 H Glucose 141 H D Calcium 8.2 L Total Bilirubin 0.6 AST 201 H ALT 118 H Alkaline Phosphatase 514 H Total Protein 5.8 L Albumin 2.7 L Globulin 3.1 Albumin/Globulin Ratio 0.9 L PFSH Medical History Gout COPD (chronic obstructive pulmonary disease) Peripheral neuropathy Retinal detachment Peripheral vascular disease Essential hypertension (11/01/17) Pure hypercholesterolemia (04/24/16) Systolic congestive heart failure (04/24/16) Atrial fibrillation (04/24/16) Arterial embolism of left leg Surgical History Anesthesia History of surgery History of eye surgery History of cataract removal with insertion of prosthetic lens Family History Father History of heart disease Sister Cancer Social History household members: none Smoking Status: Former smoker alcohol intake: current Assessment & Plan Assessment & Plan narrative: 1. Septic shock. Present on admission and active. - New infiltrates on CXR 01/26/24. - intubated on 4/2 PM for worsening respiratory status / failure. CT shows pneumonia w/ bilateral pleural effusions. - Ceftriaxone 1 gm Q24h, changed to Zosyn. Leukocytosis now resolved. - added fluconazole for possible yobany infection with budding yeast and pseudohyphae on sputum culture. 400 mg dosing given initially, continue 200 mg daily for 14 days for presumed thrush and possible candidal pneumonia. Follow up cultures. Also sent fungal culture with thoracentesis. Cultures pending. The pleural fluid is culture negative at this point. - start sedation vacations starting 02/01 (failed 02/01). Patient does not want trach or PEG per advanced directives on file, however POA was not aware of this and wants these things. 2. Aspiration pneumonia, present on admission and active. 3. Acute septic encephalopathy, present on admission and active. 4. MAGALYS, present on admission and improving. 5. Acute hypoxic respiratory failure, likely aspiration pneumonia, Acute on chronic HFrEF with R pleural effusion. Present on admission and active. -echocardiogram without evidence of significant worsened cardiomyopathy. Ejection fraction is 45-55%. 6. Severe Chronic Protein Calorie Malnutrition. Present on admission and active. r/t to decreased energy intake and increased protein needs with CHF as evidenced by severe muscle wasting (temporalis, interosseous) and severe subcutaneous fat loss (buccal and orbital fat pads), <75% of estimated energy requirements for >1 month, BMI 20.6 (underweight for age), and substance abuse. -Started TPN 01/28 and will continue. Goal tube feeds are 45 cc per hour, will see if he tolerates 20 cc with his small stomach. Watch phos levels closely, high risk for refeeding syndrome. 7. Severe alcohol withdrawal with delirium, Present on admission and improved. - Precedex drip, Phenobarbital increased dose and prn and Haldol. Does not respond well to Lorazepam. - Continue IV Thiamine and Folate. 8. Atrial Fibrillation, Persistent with RVR. Present on admission and improved. - on lovenox now given no PO intake for anticoagulation. Held for thoracentesis 01/29. - difficulties with afib with RVR the last few days. Did receive amiodarone loading IV. consider either metoprolol IV, resumption of PO via feeding tube, or PO amiodarone depending on BP. - metoprolol IV prn for rate control. 9. Acute on Chronic HFrEF, Present on admission and active. - Last LVEF was 30% via TTE in 2022. Now with EF of 45-55% 10. Ambulatory Dysfunction, Present on admission and active. 11. Ground Level Fall, Present on admission and active. 12. Lower Extremity Weakness with history of T6 Compression Fracture, Present on admission and active. His fall was likely secondary to alcohol intoxication though does have bilateral weakness with T6 compression fracture. He could not tolerate the planned MR of T spine to make sure no spinal pathology and the Shoulder MR plan was also deferred. - Treat alcohol and hypomagnesemia as noted below. - Given his lower extremity weakness and history of T6 compression fracture, tried to do a thoracic spine MRI to rule out acute issue, though he does not have other clinical signs of cord compression. 13. Hypomagnesemia, Present on admission and improved. - Replace as needed, monitor. 14. Left Humeral Head Fracture. Present on admission and active. Mildly displaced per x-ray. - Continue sling. Non-operative with outpatient management for now, discussed with orthopedics whom recommended MRI for this patient for further evaluation for possible rotator cuff injury. - PRN Hydrocodone and IV Dilaudid while sedated. -shoulder MRI deferred for now as noted above. 15. Essential Hypertension, not active. - holding home medications, resume when pressures improve. 16. Tobacco use and dependence. Present on admission and active. - nicotine patch Placement [facility] when he is ready. Likely many more days Code Status: Full Code, surrogate is patient's daughter. DVT: on Eliquis normally, now on Lovenox BID 1mg / kg, held prior to thoracentesis but will resume. Dispo: Remains ICU. On vent. PLAN: -SBT's failed on 02/03 and again on 02/04 -continue current medications. He appears to have a very low-level reserve. DPOA indicates full level of care, including reintubation if needed. Ethics committee involved on 02/04 given nature of this case. ARCHANA cancelled GOC discussion planned for evening of 02/04 saying she doesn't feel like driving in. Will discuss further with ethics about how to proceed. Quality VTE Deep Vein Thrombosis/Pulmonary Embolism Present on Admission: No
--- NOTE | 2024-02-05 19:22 | PC.NURSE ---
Day Shift Note Pt off all sedation this morning for SAT, SBT done from 0905 to approx 1030, failed due to HR up to the 140s and low NIF per RT. Pt able to follow commands and was calm throughout SBT. Precedex and propofol infusing for sedation - see emar. Phenylephrine gtt decreased to 40 mcg/min, MAP greater than 65. Meds attempted to be dissolved and given via dobhoff per MD order but tube became clogged. Dobhoff removed and replaced with NG tube to right nare per Dr. Morales in order to facilitate med administration and tube feeds, confirmed via CXR. Pivot 1.5 at 20 ml/hr, pt with one large BM today. At around 1200, bleeding and clots around catheter noted with hematuria following. Catheter is continuing to drain urine and urine has lightened throughout afternoon. Dr. Morales notified and lovenox discontinued. Restraints in place to both wrists.
[2024-02-06] VITALS (65 sets, daily range): BP systolic 91–174; BP diastolic 45–97; PULSE 60–132; RESP 0–34; TEMP 36.4–37.3; O2SAT 92–100
[2024-02-06] MEDS: dexmedeTOMIDine in 0.9 % NaCL 400 MCG/100 ML PLAST..BAG 8.709 MCG IV ×2 (00:14→11:08)
[2024-02-06] MEDS: CHLORHEXIDINE GLUCONATE 15 ML CUP PO ×2 (00:14→05:59)
[2024-02-06] MEDS: PHENYLEPHRINE 20,000 MCG in DEXTROSE 5% IN WATER 250 ML 30 MCG IV (03:46)
[2024-02-06] MEDS: SODIUM CHLORIDE 0.9% FLUSH 10 ML IV ×3 (03:50→20:29)
[2024-02-06 04:24] LABS: Add Manual Diff / Slide Review NO; Basophils Absolute Auto 100 /uL (0-100); Basophils Percent Auto 0.7 % (0-2); Eosinophils Absolute Auto 100 /uL (0-450); Eosinophils Percent Auto 0.7 % (2-4); Hematocrit 39.1 % (41-53); Hemoglobin 12.7 g/dL (13.5-17.5); Lymphocytes Absolute Auto 1200 /uL (1100-4500); Mean Corpuscular HGB Conc 32.6 % (30-36); Mean Corpuscular Hemoglobin 30.5 PG (26-34); Mean Corpuscular Volume 93.7 fL (80-100); Monocytes Absolute Auto 600 /uL (0-900); Monocytes Percent Auto 7.4 % (3-14); Neutrophils Absolute Auto 6100 /uL (1500-7000); Neutrophils Percent Auto 76.2 % (50-75); Platelet Count 198 X10^3/uL (150-400); Red Blood Cell Count 4.17 X10^6/uL (4.5-5.9); Red Cell Distribution Width 14.3 % (11.6-14.8)
[2024-02-06 04:49] LABS: Alanine Aminotransferase 124 IU/L (<50); Albumin 2.4 g/dL (3.5-5.0); Albumin Globulin Ratio 0.9 (1.0-2.8); Alkaline Phosphatase 589 U/L (38-126); Aspartate Aminotransferase 205 IU/L (17-59); BUN Creatinine Ratio 27.3 (6-22); Bilirubin Total 0.5 mg/dL (0.2-1.3); Blood Urea Nitrogen 33 mg/dL (9-20); Carbon Dioxide 33 mmol/L (22-32); Chloride 101 mmol/L (98-107); Estimated Glomerular Filt Rate > 60 mL/min (>60); Globulin 2.8 g/dL (1.7-4.1); Glucose 125 mg/dL (80-110); HEMOLYSIS < 15 (0-50); Potassium 3.5 mmol/L (3.4-5.1); Sodium 135 mmol/L (137-145); Total Protein 5.2 g/dL (6.3-8.2)
[2024-02-06] MEDS: MIDODRINE HCL 5 MG TABLET 10 MG PO ×3 (05:59→18:57)
[2024-02-06] MEDS: propofoL 1,000 MG/100 ML VIAL 5.225 MG IV (06:01)
[2024-02-06] MEDS: ALBUTEROL/IPRATROPIUM 3 ML AMPUL INH (09:11)
[2024-02-06] MEDS: FUROSEMIDE 40 MG/4 ML VIAL 20 MG IV ×3 (09:12→20:27)
[2024-02-06] MEDS: PANTOPRAZOLE 40 MG VIAL IV (09:12)
[2024-02-06] MEDS: THIAMINE 100 MG in SODIUM CHLORIDE 0.9% 100 ML 404 MG IV ×3 (09:12→20:29)
[2024-02-06] MEDS: METOPROLOL IR 25 MG TABLET 12.5 MG PO ×2 (09:13→20:28)
[2024-02-06] MEDS: FOLIC ACID 1 MG in SODIUM CHLORIDE 0.9% 100 ML 200.4 MG IV (09:13)
[2024-02-06] MEDS: FLUCONAZOLE 200 MG/100 ML PIGGYBACK 100 MG IV (11:08)
--- NOTE | 2024-02-06 12:02 | PM.PN.EICU ---
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-book cutter care: Yes Patient Location: ICU Provider location (State): [place] Other participants/roles: RN Interval history: patient placed on SBT this AM. his advanced directives are complicated - he did mention he would like to make any decisions regarding his care as long as he is able to communicate, which so far he can. Current Medications Current Medications Medications: Home Medications lisinopril 10 mg tablet 5 mg (1/2 x 10 mg) PO BID #180 tabs 11/01/22 [Rx Confirmed 01/25/24] spironolactone 25 mg tablet 25 mg PO DAILY #90 tabs 02/06/23 [Rx Confirmed 01/25/24] metoprolol succinate 50 mg tablet,extended release 24 hr 50 mg PO BID #180 tabs 08/10/23 [Rx Confirmed 01/25/24] apixaban 2.5 mg tablet (Eliquis) 2.5 mg PO BID #60 tabs 08/27/23 [Rx Confirmed 01/25/24] atorvastatin 80 mg tablet 80 mg PO BEDTIME #30 tabs 10/24/23 [Rx Confirmed 01/25/24] furosemide 20 mg tablet 20 mg PO BID #180 tabs 11/12/23 [Rx Confirmed 01/25/24] Visit Medications (administered) Generic Name Dose Route Start Last Admin Trade Name Freq PRN Reason Stop Dose Admin Albuterol/Ipratropium 3 ml 01/30/24 02:01 02/06/24 09:11 Albuterol/Ipratropium 3 Ml Ampul INH 3 ml RTQ4HR PRN Administration Shortness Of Breath Amiodarone HCl 200 mg 02/02/24 09:00 02/03/24 08:25 Amiodarone 200 Mg Tablet PO 200 mg BID FRANKO Administration Chlorhexidine Gluconate 15 ml 01/30/24 06:00 02/06/24 05:59 Chlorhexidine Gluconate 15 Ml Cup PO 15 ml Q6HR FRANKO Administration Fentanyl 25 mcg 01/30/24 13:02 02/05/24 17:59 Fentanyl 100 Mcg/2 Ml Inj IV 25 mcg Q1H PRN Administration Pain, Severe (7-10) Furosemide 20 mg 01/31/24 15:00 02/06/24 09:12 Furosemide 40 Mg/4 Ml Vial IV 20 mg TID FRANKO Administration dexmedeTOMIDine in 0.9 % NaCL 400 mcg in 100 mls @ 2.903 mls/hr 01/26/24 19:30 02/06/24 11:08 Precedex IV 0.6 mcg/kg/hr TITRATE FRANKO 8.709 mls/hr Administration Protocol 0.2 MCG/KG/HR Propofol 1,000 mg in 100 mls @ 1.742 mls/hr 01/30/24 00:45 02/06/24 06:01 Propofol IV 15 mcg/kg/min TITRATE FRANKO 5.225 mls/hr Administration Protocol 5 MCG/KG/MIN NOREPINEPHRINE BITARTRATE/D5W 4 mg in 250 mls @ 21.773 mls/hr 01/30/24 17:30 02/02/24 06:50 Levophed IV 0 mcg/kg/min TITRATE FRANKO 0 mls/hr Titration Protocol 0.1 MCG/KG/MIN Fluconazole 200 mg in 100 mls @ 100 mls/hr 01/31/24 11:00 02/06/24 11:08 Diflucan IV 02/13/24 11:59 100 mls/hr Q24H FRANKO Administration Phenylephrine HCl 20,000 mcg/ 250 mls @ 75 mls/hr 02/02/24 06:36 02/06/24 08:00 Dextrose IV 30 mcg/min TITRATE FRANKO 22.5 mls/hr Titration Protocol 100 MCG/MIN Thiamine HCl 100 mg/ Sodium 101 mls @ 404 mls/hr 02/04/24 15:00 02/06/24 10:58 Chloride IV Infused TID FRANKO Infusion Folic Acid 1 mg/ Sodium 100.2 mls @ 200.4 mls/hr 02/04/24 11:00 02/06/24 10:58 Chloride IV Infused DAILY FRANKO Infusion Metoprolol Tartrate 5 mg 02/03/24 10:56 02/04/24 17:48 Metoprolol Tartrate 5 Mg/5 Ml Inj IV 5 mg Q1HR PRN Administration heart rate over 120 Metoprolol Tartrate 12.5 mg 02/04/24 21:00 02/06/24 09:13 Metoprolol Ir 25 Mg Tablet PO 12.5 mg BID FRANKO Administration Midodrine 10 mg 02/05/24 12:00 02/06/24 05:59 Midodrine Hcl 5 Mg Tablet PO 10 mg 0600,1200,1800 FRANKO Administration Nicotine 14 mg 01/25/24 12:45 02/06/24 08:55 Nicotine 14 Patch TOP Not Given DAILY [facility]1983 Ondansetron HCl 4 mg 01/24/24 22:11 01/26/24 18:06 Ondansetron 4 Mg/2 Ml Inj IV 4 mg Q6HR PRN Administration Nausea And Vomiting Pantoprazole Sodium 40 mg 01/30/24 09:00 02/06/24 09:12 Pantoprazole 40 Mg Vial IV 40 mg DAILY FRANKO Administration Polyethylene Glycol 17 gm 02/04/24 16:10 02/06/24 08:56 Polyethylene Glycol 3350 17 Gm Powd.Pack PO Not Given DAILY [facility]1983 Sennosides 8.6 mg 02/04/24 16:10 02/06/24 08:56 Sennosides 8.6 Mg Tablet PO Not Given DAILY [facility] Sodium Chloride 10 ml 02/01/24 00:28 02/06/24 03:50 Sodium Chloride 0.9% Flush IV 10 ml PRN PRN Administration Flush Sodium Chloride 10 ml 02/01/24 09:00 02/06/24 09:13 Sodium Chloride 0.9% Flush IV 10 ml BID FRANKO Administration Objective Ventilator Parameters: Ventilator Settings FiO2 25 CPAP Pressure Amount 5 RT Vent Frequency 14 Ventilator Tidal Volume 400 Exhaled Vt/kg IBW 6 Positive End Expiratory 5 Pressure Ventilator Pressure Support 5 Inspiratory Phase Time 1.0 I:E Ratio 1:3.3 Patient Position HOB >= 30 degrees Labs 02/06/24 04:00 02/06/24 04:00 Labs: Laboratory Results - last 24 hr 02/06/24 04:00 WBC 8.0 RBC 4.17 L Hgb 12.7 L Hct 39.1 L MCV 93.7 MCH 30.5 MCHC 32.6 RDW 14.3 Plt Count 198 Neut % (Auto) 76.2 H Lymph % (Auto) 15.0 L [place] % (Auto) 7.4 Eos % (Auto) 0.7 L Baso % (Auto) 0.7 Neut # (Auto) 6100 Lymph # (Auto) 1200 [place] # (Auto) 600 Eos # (Auto) 100 Baso # (Auto) 100 Sodium 135 L Potassium 3.5 Chloride 101 Carbon Dioxide 33 H BUN 33 H Creatinine 1.21 Estimated GFR > 60 BUN/Creatinine Ratio 27.3 H Glucose 125 H Calcium 8.0 L Total Bilirubin 0.5 AST 205 H ALT 124 H Alkaline Phosphatase 589 H Total Protein 5.2 L Albumin 2.4 L Globulin 2.8 Albumin/Globulin Ratio 0.9 L Exam Vital Signs (past 8 hours): - 02/06/24 04:15 02/06/24 04:15 02/06/24 04:30 Temperature Pulse Rate 75 75 Respiratory Rate 15 14 Blood Pressure 127/56 L Pulse Oximetry 100 100 Oxygen Delivery Method 02/06/24 04:30 02/06/24 04:45 02/06/24 04:45 Temperature Pulse Rate 76 Respiratory Rate 15 Blood Pressure 130/59 L 104/56 L Pulse Oximetry 100 Oxygen Delivery Method 02/06/24 05:00 02/06/24 05:00 02/06/24 05:15 Temperature Pulse Rate 76 Respiratory Rate 15 Blood Pressure 115/66 111/55 L Pulse Oximetry 100 Oxygen Delivery Method 02/06/24 05:15 02/06/24 05:30 02/06/24 05:30 Temperature Pulse Rate 79 81 Respiratory Rate 15 15 Blood Pressure 116/67 Pulse Oximetry 100 100 Oxygen Delivery Method 02/06/24 05:45 02/06/24 05:45 02/06/24 06:00 Temperature Pulse Rate 73 73 Respiratory Rate 14 16 Blood Pressure 118/59 L Pulse Oximetry 100 100 Oxygen Delivery Method 02/06/24 06:00 02/06/24 06:10 02/06/24 06:15 Temperature Pulse Rate 73 Respiratory Rate 14 Blood Pressure 134/56 L Pulse Oximetry 100 100 Oxygen Delivery Method Mechanical Ventilation 02/06/24 06:15 02/06/24 06:30 02/06/24 06:31 Temperature Pulse Rate 86 Respiratory Rate 22 Blood Pressure 121/58 L 111/60 Pulse Oximetry 100 Oxygen Delivery Method 02/06/24 06:31 02/06/24 06:45 02/06/24 06:45 Temperature Pulse Rate 82 66 Respiratory Rate 16 15 Blood Pressure 124/58 L Pulse Oximetry 100 99 Oxygen Delivery Method 02/06/24 07:00 02/06/24 08:00 02/06/24 09:00 Temperature 97.8 F 97.6 F 97.8 F Pulse Rate 75 70 78 Respiratory Rate 16 15 16 Blood Pressure 129/60 174/70 H 107/53 L Pulse Oximetry 99 99 98 Oxygen Delivery Method 02/06/24 10:00 Temperature Pulse Rate 107 H Respiratory Rate 16 Blood Pressure 91/60 Pulse Oximetry 96 Oxygen Delivery Method Fraction of Inspired Oxygen 25 SaO2/FiO2 Ratio 476 Oxygen Delivery Method Mechanical Ventilation Oxygen Flow Rate 0 Narrative Exam Narrative: pt intubated following commands synchronous with vent rate controlled Quality TeleICU VTE Deep Vein Thrombosis/Pulmonary Embolism Present on Admission: No Assessment & Plan Assessment and plan (1) Pleural effusion: Problem details: Bilateral moderate effusions most likely reflecting volume overload in patient with poor underlying health and CHF. Status: Acute (2) Heart failure with reduced ejection fraction: Problem details: As above, increase diuresis. 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 fentanyl iv prn for pain -- RASS goal 0 to -1 -- DAILY SAT- with goal of extubating when mental status improved -- will attempt extubation today if he does well on PSV RESP: # Acute hypoxemic respiratory failure- resolving -- Secondary to aspiration PNA and pulmonary edema/chf --chest ct showing bilatreal pna c/f aspiration plus bilateral pleural effusion -- cxr 01/31 showing only aoveolar edema -- continue diuresis and abx -- vent/sedation bundle -- trend abg -- fio2 needs at 30% today, secretions improved -- thora done 01/30, 800 cc removed, likely transudative c/w CHF. 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, now on lovenox sq bid, can transition back to PO eliquis when more stable, reliably tolerating PO -- Goal HR < 110 - ami oheld , lft trending down, now on lopressor and midodrine # CHF -- continue lasix 20 mg TID for now, for even to slightly neg fluid balance -- BNP continues to dowtrend -- Strict I/O,, valdivia - - trend bmp : -- High lytes goal -- Monitor UOP as above ID: # Aspiration PNA -- follow blood cx - ngtd -- follow resp cx - yeast -- resp cultures repeated today- -- procalcitonin neg -- on zosyn, diflucan -- given sectretion load will continue abx ENDO: -- Goal BS < 180 FEN - tolerating slow advancement of feeds MSK- has left humeral head fracture- POA, in sling. will need MRI to r/o rotator cuff tear, f/u ortho Has Gi and DVT ppx Full code, GOC discussions ongoing total cct 35 min D/w bedside RN. Time Spent With Patient Time with patient: 30 to 49 minutes with 50% spent counseling/coordinating care
[2024-02-06] MEDS: PHENYLEPHRINE 20,000 MCG in DEXTROSE 5% IN WATER 250 ML 22.5 MCG IV (12:22)
--- NOTE | 2024-02-06 14:16 | PM.PN.1 ---
Subjective Subjective Interval history: Patient successfully extubated and now breathing well on 2L. He is unable to fully express whether he would want to be reintubated or not. POA updated. Exam Vital Signs (past 8 hours): - 02/06/24 06:30 02/06/24 06:31 02/06/24 06:31 Temperature Pulse Rate 86 82 Respiratory Rate 22 16 Blood Pressure 111/60 Pulse Oximetry 100 100 Oxygen Delivery Method Oxygen Flow Rate 02/06/24 06:45 02/06/24 06:45 02/06/24 07:00 Temperature 97.8 F Pulse Rate 66 75 Respiratory Rate 15 16 Blood Pressure 124/58 L 129/60 Pulse Oximetry 99 99 Oxygen Delivery Method Oxygen Flow Rate 02/06/24 08:00 02/06/24 09:00 02/06/24 10:00 Temperature 97.6 F 97.8 F Pulse Rate 70 78 107 H Respiratory Rate 15 16 16 Blood Pressure 174/70 H 107/53 L 91/60 Pulse Oximetry 99 98 96 Oxygen Delivery Method Oxygen Flow Rate 02/06/24 10:30 02/06/24 10:30 02/06/24 11:00 Temperature Pulse Rate 110 H 101 H Respiratory Rate 19 18 Blood Pressure 96/54 L Pulse Oximetry 96 98 Oxygen Delivery Method Oxygen Flow Rate 02/06/24 11:00 02/06/24 11:30 02/06/24 11:31 Temperature Pulse Rate 110 H 112 H Respiratory Rate 24 22 Blood Pressure 104/54 L Pulse Oximetry 97 98 Oxygen Delivery Method Oxygen Flow Rate 02/06/24 11:31 02/06/24 11:56 02/06/24 12:00 Temperature Pulse Rate 107 H Respiratory Rate 27 H Blood Pressure 114/56 L Pulse Oximetry 95 97 Oxygen Delivery Method Oxygen Flow Rate 02/06/24 12:00 02/06/24 12:02 02/06/24 12:30 Temperature Pulse Rate Respiratory Rate Blood Pressure 117/59 L 133/56 L Pulse Oximetry 100 Oxygen Delivery Method Nasal Cannula Oxygen Flow Rate 2 02/06/24 12:30 02/06/24 13:00 02/06/24 13:00 Temperature Pulse Rate 111 H 117 H Respiratory Rate 27 H 34 H Blood Pressure 139/68 Pulse Oximetry 100 Oxygen Delivery Method Oxygen Flow Rate Fraction of Inspired Oxygen 25 SaO2/FiO2 Ratio 476 Oxygen Delivery Method Nasal Cannula Oxygen Flow Rate 2 Narrative Exam Narrative: Now extubated and awake and alert, wet cough NAD Lungs clear heart regular Abdomen ND, NT Legs free of edema. Cachectic. Objective Labs 02/06/24 04:00 02/06/24 04:00 Labs: Laboratory Results - last 24 hr 02/06/24 04:00 WBC 8.0 RBC 4.17 L Hgb 12.7 L Hct 39.1 L MCV 93.7 MCH 30.5 MCHC 32.6 RDW 14.3 Plt Count 198 Neut % (Auto) 76.2 H Lymph % (Auto) 15.0 L [place] % (Auto) 7.4 Eos % (Auto) 0.7 L Baso % (Auto) 0.7 Neut # (Auto) 6100 Lymph # (Auto) 1200 [place] # (Auto) 600 Eos # (Auto) 100 Baso # (Auto) 100 Sodium 135 L Potassium 3.5 Chloride 101 Carbon Dioxide 33 H BUN 33 H Creatinine 1.21 Estimated GFR > 60 BUN/Creatinine Ratio 27.3 H Glucose 125 H Calcium 8.0 L Total Bilirubin 0.5 AST 205 H ALT 124 H Alkaline Phosphatase 589 H Total Protein 5.2 L Albumin 2.4 L Globulin 2.8 Albumin/Globulin Ratio 0.9 L PFSH Medical History Gout COPD (chronic obstructive pulmonary disease) Peripheral neuropathy Retinal detachment Peripheral vascular disease Essential hypertension (11/01/17) Pure hypercholesterolemia (04/24/16) Systolic congestive heart failure (04/24/16) Atrial fibrillation (04/24/16) Arterial embolism of left leg Surgical History Anesthesia History of surgery History of eye surgery History of cataract removal with insertion of prosthetic lens Family History Father History of heart disease Sister Cancer Social History household members: none Smoking Status: Former smoker alcohol intake: current Assessment & Plan Assessment & Plan narrative: 1. Septic shock. Present on admission and now resolved. - New infiltrates on CXR 01/26/24. - intubated on 4/2 PM for worsening respiratory status / failure. CT shows pneumonia w/ bilateral pleural effusions. - Ceftriaxone 1 gm Q24h, changed to Zosyn. Leukocytosis now resolved. - added fluconazole for possible yobany infection with budding yeast and pseudohyphae on sputum culture. 400 mg dosing given initially, continue 200 mg daily for 14 days for presumed thrush and possible candidal pneumonia. Fungal culture from thoracentesis are negative. Cultures pending. The pleural fluid is culture negative at this point. -now extubated on 02/05 2. Aspiration pneumonia, present on admission and active. - 3. Acute septic encephalopathy, present on admission and active. 4. MAGALYS, present on admission and improving. 5. Acute hypoxic respiratory failure, likely aspiration pneumonia, Acute on chronic HFrEF with R pleural effusion. Present on admission and active. -echocardiogram without evidence of significant worsened cardiomyopathy. Ejection fraction is 45-55%. -able to extubate on 02/05 6. Severe Chronic Protein Calorie Malnutrition. Present on admission and active. r/t to decreased energy intake and increased protein needs with CHF as evidenced by severe muscle wasting (temporalis, interosseous) and severe subcutaneous fat loss (buccal and orbital fat pads), <75% of estimated energy requirements for >1 month, BMI 20.6 (underweight for age), and substance abuse. -Started TF on 01/28 and will continue. Goal tube feeds are 45 cc per hour, will see if he tolerates 20 cc with his small stomach. Watch phos levels closely, high risk for refeeding syndrome. 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 Severe alcohol withdrawal with delirium, Present on admission and improved. - Precedex drip, Phenobarbital increased dose and prn and Haldol. Does not respond well to Lorazepam. - Continue IV Thiamine and Folate. 8. Atrial Fibrillation, Persistent with RVR. Present on admission and RVR now resolved. - on lovenox now given no PO intake for anticoagulation. Held for thoracentesis 01/29. - difficulties with afib with RVR the last few days. Did receive amiodarone loading IV and now on po amio 200mg BID - metoprolol IV prn for rate control. 9. Acute on Chronic HFrEF, Present on admission and active. - Last LVEF was 30% via TTE in 2022. Now with EF of 45-55% 10. Ambulatory Dysfunction, Present on admission and active. 11. Ground Level Fall, Present on admission and active. 12. Lower Extremity Weakness with history of T6 Compression Fracture, Present on admission and active. His fall was likely secondary to alcohol intoxication though does have bilateral weakness with T6 compression fracture. He could not tolerate the planned MR of T spine to make sure no spinal pathology and the Shoulder MR plan was also deferred. - Treat alcohol and hypomagnesemia as noted below. - Given his lower extremity weakness and history of T6 compression fracture, tried to do a thoracic spine MRI to rule out acute issue, though he does not have other clinical signs of cord compression. 13. Hypomagnesemia, Present on admission and improved. - Replace as needed, monitor. 14. Left Humeral Head Fracture. Present on admission and active. Mildly displaced per x-ray. - Continue sling. Non-operative with outpatient management for now, discussed with orthopedics whom recommended MRI for this patient for further evaluation for possible rotator cuff injury. - PRN Hydrocodone and IV Dilaudid while sedated. - shoulder MRI deferred for now as noted above. 15. Essential Hypertension, not active. - holding home medications, resume when pressures improve. 16. Tobacco use and dependence. Present on admission and active. - nicotine patch Placement -[facility] and accepted him when he is ready. Likely at least 2-3 more days. Code Status: Full Code, surrogate is patient's daughter. DVT: on Eliquis normally, now on Lovenox BID 1mg / kg, held prior to thoracentesis but will resume. Dispo: Remains ICU for now. Now extubated as of 02/05. Quality VTE Deep Vein Thrombosis/Pulmonary Embolism Present on Admission: No
[2024-02-06] MEDS: LOPERAMIDE 2 MG CAPSULE PO (15:41)
[2024-02-06] MEDS: POTASSIUM CHLORIDE 20 MEQ/15 ML UDC TUBE (15:46)
--- NOTE | 2024-02-06 18:29 | PC.NURSE ---
Day Shift Note Patient on ventilator at start of shift, SAT done. After discussion with Dr. Todd and Dr. Morales SBT done for approx 20 min and then order received to extubate. Pt able to follow commands and nod/shake head in response to some questions. Extubated to 2L NC at 1201. SpO2 maintained upper 90s. Able to cough and clear secretions with oral suctioning assist. Family at bedside and helpful with patient's care. Afib CVR/RVR most of shift with HR 90-110s. Carroll gtt weaned to off this afternoon. NG tube in place for nutrition, tolerating feeds at 30 ml/hr although with frequent loose stools. Immodium given via tube. Dodd catheter in place draining clear yellow urine. Bed alarm on. At 1835 HR up to 160s-180s intermittently. Pt reports seeing bugs everywhere and appears in distress. notified. See new orders.
[2024-02-06] MEDS: dilTIAZem 5 MG/ML SDV 10 MG IV (18:57)
--- NOTE | 2024-02-06 20:54 | PM.ICURNDS ---
- :: This patient was seen via real time interactive two-way audiovisual telecommunication. pt extubats this afternoon, he is awake and confused, still unclear if he wants to be DNR/I. on TF, was in afib RVR earlier but imrpoved with cardizem 10mg x 1.
[2024-02-06] MEDS: ONDANSETRON 4 MG/2 ML INJ IV (22:28)
[2024-02-07] VITALS (49 sets, daily range): BP systolic 76–140; BP diastolic 50–70; PULSE 71–115; RESP 14–34; TEMP 36.6–37.9; O2SAT 80–98
[2024-02-07 04:29] LABS: Add Manual Diff / Slide Review NO; Basophils Absolute Auto 100 /uL (0-100); Basophils Percent Auto 0.5 % (0-2); Eosinophils Absolute Auto 0 /uL (0-450); Eosinophils Percent Auto 0.4 % (2-4); Hematocrit 26.6 % (41-53); Hemoglobin 8.7 g/dL (13.5-17.5); Lymphocytes Absolute Auto 1800 /uL (1100-4500); Lymphocytes Percent Auto 15.8 % (25-40); Mean Corpuscular HGB Conc 32.6 % (30-36); Mean Corpuscular Hemoglobin 30.5 PG (26-34); Mean Corpuscular Volume 93.6 fL (80-100); Monocytes Absolute Auto 800 /uL (0-900); Monocytes Percent Auto 7.4 % (3-14); Neutrophils Absolute Auto 8400 /uL (1500-7000); Neutrophils Percent Auto 75.9 % (50-75); Platelet Count 311 X10^3/uL (150-400); Red Blood Cell Count 2.85 X10^6/uL (4.5-5.9); Red Cell Distribution Width 13.9 % (11.6-14.8); White Blood Cell Count 11.1 X10^3/uL (4.5-11.0)
[2024-02-07 05:07] LABS: Alanine Aminotransferase 104 IU/L (<50); Albumin 2.6 g/dL (3.5-5.0); Albumin Globulin Ratio 0.8 (1.0-2.8); Alkaline Phosphatase 431 U/L (38-126); Aspartate Aminotransferase 119 IU/L (17-59); BUN Creatinine Ratio 28.7 (6-22); Bilirubin Total 0.5 mg/dL (0.2-1.3); Blood Urea Nitrogen 33 mg/dL (9-20); Calcium 8.3 mg/dL (8.4-10.2); Carbon Dioxide 33 mmol/L (22-32); Chloride 104 mmol/L (98-107); Estimated Glomerular Filt Rate > 60 mL/min (>60); Globulin 3.2 g/dL (1.7-4.1); Glucose 110 mg/dL (80-110); HEMOLYSIS < 15 (0-50); Potassium 3.3 mmol/L (3.4-5.1); Sodium 139 mmol/L (137-145); Total Protein 5.8 g/dL (6.3-8.2)
[2024-02-07] MEDS: MIDODRINE HCL 5 MG TABLET 10 MG PO ×3 (06:00→17:52)
[2024-02-07 08:12] LABS: Magnesium 2.3 mg/dL (1.6-2.3)
[2024-02-07] MEDS: POTASSIUM CHLORIDE IN WATER 10 MEQ/100 ML PIGGYBACK 100 MEQ IV ×4 (08:17→11:30)
[2024-02-07] MEDS: dexmedeTOMIDine in 0.9 % NaCL 400 MCG/100 ML PLAST..BAG 5.806 MCG IV (08:25)
[2024-02-07] MEDS: FOLIC ACID 1 MG in SODIUM CHLORIDE 0.9% 100 ML 200 MG IV (09:00)
[2024-02-07] MEDS: THIAMINE 100 MG in SODIUM CHLORIDE 0.9% 100 ML 404 MG IV ×3 (09:00→21:21)
[2024-02-07] MEDS: METOPROLOL IR 25 MG TABLET 12.5 MG PO ×2 (09:01→21:20)
[2024-02-07] MEDS: NICOTINE 14 PATCH 14 MG TOP (09:01)
[2024-02-07] MEDS: PANTOPRAZOLE 40 MG VIAL IV (09:02)
[2024-02-07] MEDS: FUROSEMIDE 40 MG/4 ML VIAL 20 MG IV ×3 (09:02→21:18)
[2024-02-07] MEDS: SODIUM CHLORIDE 0.9% FLUSH 10 ML IV ×2 (09:07→21:21)
[2024-02-07] MEDS: FLUCONAZOLE 200 MG/100 ML PIGGYBACK 100 MG IV (10:29)
--- NOTE | 2024-02-07 12:20 | SLP.IPNOTE ---
Addendum entered and electronically signed by Maxine Macias 02/07/24 12:24: Note, the following recommendations are related to therapeutic PO intake. Pt is continuing with NG tube for nutrition at this time. Original Note: WAFER SUBSTRATE TESTER recommendations as of 02/07/24 at 1215pm 1. Ice chips only. 2. Strict oral care to decrease bacterial load in mouth and decrease risk of developing/worsening aspiration pneumonia from aspirated secretions. 3. Only provide ice chips when pt is awake, alert, and upright at least 60 degrees, ideally 90 degrees. 4. One ice chip at a time, wait to observe swallow reflex before providing next ice chip. 5. Do not allow pt to drink melted ice chips (thin water); remove cup from room if ice has melted in order to avoid confusion.
[2024-02-07] MEDS: LOPERAMIDE 2 MG CAPSULE PO (12:47)
--- NOTE | 2024-02-07 13:46 | P.TELICUPN_ITS ---
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-delicatessen manager care: Yes Patient Location: ICU Provider location (State): [place] Other participants/roles: RN Interval history: pt extubated and much mroe awake today, will be following up about goals of care Current Medications Current Medications Medications: Home Medications lisinopril 10 mg tablet 5 mg (1/2 x 10 mg) PO BID #180 tabs 11/01/22 [Rx Confirmed 01/25/24] spironolactone 25 mg tablet 25 mg PO DAILY #90 tabs 02/06/23 [Rx Confirmed 01/25/24] metoprolol succinate 50 mg tablet,extended release 24 hr 50 mg PO BID #180 tabs 08/10/23 [Rx Confirmed 01/25/24] apixaban 2.5 mg tablet (Eliquis) 2.5 mg PO BID #60 tabs 08/27/23 [Rx Confirmed 01/25/24] atorvastatin 80 mg tablet 80 mg PO BEDTIME #30 tabs 10/24/23 [Rx Confirmed 01/25/24] furosemide 20 mg tablet 20 mg PO BID #180 tabs 11/12/23 [Rx Confirmed 01/25/24] Visit Medications (administered) Generic Name Dose Route Start Last Admin Trade Name Freq PRN Reason Stop Dose Admin Albuterol/Ipratropium 3 ml 01/30/24 02:01 02/06/24 09:11 Albuterol/Ipratropium 3 Ml Ampul INH 3 ml RTQ4HR PRN Administration Shortness Of Breath Amiodarone HCl 200 mg 02/02/24 09:00 02/03/24 08:25 Amiodarone 200 Mg Tablet PO 200 mg BID FRANKO Administration Fentanyl 25 mcg 01/30/24 13:02 02/05/24 17:59 Fentanyl 100 Mcg/2 Ml Inj IV 25 mcg Q1H PRN Administration Pain, Severe (7-10) Furosemide 20 mg 01/31/24 15:00 02/07/24 09:02 Furosemide 40 Mg/4 Ml Vial IV 20 mg TID FRANKO Administration dexmedeTOMIDine in 0.9 % NaCL 400 mcg in 100 mls @ 2.903 mls/hr 01/26/24 19:30 02/07/24 11:38 Precedex IV 0.2 mcg/kg/hr TITRATE FRANKO 2.903 mls/hr Titration Protocol 0.2 MCG/KG/HR Propofol 1,000 mg in 100 mls @ 1.742 mls/hr 01/30/24 00:45 02/06/24 09:00 Propofol IV 0 mcg/kg/min TITRATE FRANKO 0 mls/hr Titration Protocol 5 MCG/KG/MIN NOREPINEPHRINE BITARTRATE/D5W 4 mg in 250 mls @ 21.773 mls/hr 01/30/24 17:30 02/02/24 06:50 Levophed IV 0 mcg/kg/min TITRATE FRANKO 0 mls/hr Titration Protocol 0.1 MCG/KG/MIN Fluconazole 200 mg in 100 mls @ 100 mls/hr 01/31/24 11:00 02/07/24 10:29 Diflucan IV 02/13/24 11:59 100 mls/hr Q24H FRANKO Administration Phenylephrine HCl 20,000 mcg/ 250 mls @ 75 mls/hr 02/02/24 06:36 02/06/24 18:12 Dextrose IV 0 mcg/min TITRATE FRANKO 0 mls/hr Titration Protocol 100 MCG/MIN Thiamine HCl 100 mg/ Sodium 101 mls @ 404 mls/hr 02/04/24 15:00 02/07/24 09:00 Chloride IV 404 mls/hr TID FRANKO Administration Folic Acid 1 mg/ Sodium 100.2 mls @ 200.4 mls/hr 02/04/24 11:00 02/07/24 09:00 Chloride IV 200 mls/hr DAILY FRANKO Administration Loperamide HCl 2 mg 02/06/24 15:02 02/07/24 12:47 Loperamide 2 Mg Capsule PO 2 mg QID PRN Administration Diarrhea Metoprolol Tartrate 5 mg 02/03/24 10:56 02/04/24 17:48 Metoprolol Tartrate 5 Mg/5 Ml Inj IV 5 mg Q1HR PRN Administration heart rate over 120 Metoprolol Tartrate 12.5 mg 02/04/24 21:00 02/07/24 09:01 Metoprolol Ir 25 Mg Tablet PO 12.5 mg BID FRANKO Administration Midodrine 10 mg 02/07/24 12:00 02/07/24 11:18 Midodrine Hcl 5 Mg Tablet PO 10 mg 0600,1200,1800 FRANKO Administration Nicotine 14 mg 01/25/24 12:45 02/07/24 09:01 Nicotine 14 Patch TOP 14 mg DAILY FRANKO Administration Ondansetron HCl 4 mg 01/24/24 22:11 02/06/24 22:28 Ondansetron 4 Mg/2 Ml Inj IV 4 mg Q6HR PRN Administration Nausea And Vomiting Pantoprazole Sodium 40 mg 01/30/24 09:00 02/07/24 09:02 Pantoprazole 40 Mg Vial IV 40 mg DAILY FRANKO Administration Polyethylene Glycol 17 gm 02/04/24 16:10 02/07/24 09:06 Polyethylene Glycol 3350 17 Gm Powd.Pack PO Not Given DAILY FRANKO Sennosides 8.6 mg 02/04/24 16:10 02/07/24 09:07 Sennosides 8.6 Mg Tablet PO Not Given DAILY FRANKO Sodium Chloride 10 ml 02/01/24 00:28 02/06/24 03:50 Sodium Chloride 0.9% Flush IV 10 ml PRN PRN Administration Flush Sodium Chloride 10 ml 02/01/24 09:00 02/07/24 09:07 Sodium Chloride 0.9% Flush IV 10 ml BID FRANKO Administration Objective Ventilator Parameters: Ventilator Settings FiO2 25 CPAP Pressure Amount 5 RT Vent Frequency 14 Ventilator Tidal Volume 400 Exhaled Vt/kg IBW 6 Positive End Expiratory 5 Pressure Ventilator Pressure Support 5 Inspiratory Phase Time 1.0 I:E Ratio 1:3.3 Patient Position HOB >= 30 degrees Labs 02/07/24 04:16 02/07/24 04:16 Labs: Laboratory Results - last 24 hr 02/07/24 02/07/24 04:16 07:42 WBC 11.1 H RBC 2.85 L Hgb 8.7 L Hct 26.6 L MCV 93.6 MCH 30.5 MCHC 32.6 RDW 13.9 Plt Count 311 Neut % (Auto) 75.9 H Lymph % (Auto) 15.8 L [place] % (Auto) 7.4 Eos % (Auto) 0.4 L Baso % (Auto) 0.5 Neut # (Auto) 8400 H Lymph # (Auto) 1800 [place] # (Auto) 800 Eos # (Auto) 0 Baso # (Auto) 100 Sodium 139 Potassium 3.3 L Chloride 104 Carbon Dioxide 33 H BUN 33 H Creatinine 1.15 Estimated GFR > 60 BUN/Creatinine Ratio 28.7 H Glucose 110 Calcium 8.3 L Magnesium 2.3 Total Bilirubin 0.5 AST 119 H ALT 104 H Alkaline Phosphatase 431 H Total Protein 5.8 L Albumin 2.6 L Globulin 3.2 Albumin/Globulin Ratio 0.8 L Exam Vital Signs (past 8 hours): - 02/07/24 06:00 02/07/24 06:00 02/07/24 06:30 Temperature Pulse Rate 93 H 92 H Respiratory Rate 22 24 Blood Pressure 102/53 L Pulse Oximetry 97 96 Oxygen Delivery Method Oxygen Flow Rate 0.5 0.5 02/07/24 06:30 02/07/24 07:00 02/07/24 07:00 Temperature Pulse Rate 90 Respiratory Rate 23 Blood Pressure 100/52 L 108/56 L Pulse Oximetry 96 Oxygen Delivery Method Oxygen Flow Rate 02/07/24 07:30 02/07/24 07:30 02/07/24 08:00 Temperature Pulse Rate 88 86 Respiratory Rate 22 26 H Blood Pressure 105/59 L Pulse Oximetry 96 97 Oxygen Delivery Method Oxygen Flow Rate 02/07/24 08:00 02/07/24 08:00 02/07/24 08:30 Temperature Pulse Rate 77 Respiratory Rate 21 Blood Pressure 101/55 L Pulse Oximetry 97 Oxygen Delivery Method Nasal Cannula Oxygen Flow Rate 02/07/24 08:30 02/07/24 09:00 02/07/24 09:00 Temperature Pulse Rate 90 Respiratory Rate 23 Blood Pressure 101/51 L 104/54 L Pulse Oximetry 98 Oxygen Delivery Method Oxygen Flow Rate 02/07/24 09:24 02/07/24 09:24 02/07/24 09:30 Temperature Pulse Rate 81 78 Respiratory Rate 23 23 Blood Pressure 91/55 L Pulse Oximetry 98 98 Oxygen Delivery Method Oxygen Flow Rate 02/07/24 09:30 02/07/24 09:55 02/07/24 10:00 Temperature Pulse Rate 83 85 Respiratory Rate 20 23 Blood Pressure 95/52 L Pulse Oximetry 95 87 L Oxygen Delivery Method Room Air Oxygen Flow Rate 02/07/24 10:00 02/07/24 10:30 02/07/24 10:30 Temperature Pulse Rate 81 Respiratory Rate 23 Blood Pressure 99/53 L 94/51 L Pulse Oximetry 89 L Oxygen Delivery Method Oxygen Flow Rate 02/07/24 11:00 02/07/24 11:00 02/07/24 11:30 Temperature Pulse Rate 85 83 Respiratory Rate 27 H 24 Blood Pressure 90/54 L Pulse Oximetry 91 92 Oxygen Delivery Method Oxygen Flow Rate 02/07/24 11:30 02/07/24 11:43 02/07/24 12:00 Temperature Pulse Rate 83 Respiratory Rate 27 H Blood Pressure 93/55 L Pulse Oximetry 88 L Oxygen Delivery Method Nasal Cannula Oxygen Flow Rate 02/07/24 12:00 02/07/24 12:30 02/07/24 12:30 Temperature 100.3 F H Pulse Rate 91 H Respiratory Rate 31 H Blood Pressure 103/56 L 114/61 Pulse Oximetry 87 L Oxygen Delivery Method Oxygen Flow Rate 02/07/24 13:00 02/07/24 13:00 Temperature 98.1 F Pulse Rate 86 Respiratory Rate 24 Blood Pressure 105/53 L Pulse Oximetry 84 L Oxygen Delivery Method Oxygen Flow Rate Fraction of Inspired Oxygen 24 SaO2/FiO2 Ratio 395 Oxygen Delivery Method Nasal Cannula Oxygen Flow Rate 0.5 Narrative Exam Narrative: awake ill appearing on NC rate controlled Quality TeleICU VTE Deep Vein Thrombosis/Pulmonary Embolism Present on Admission: No Assessment & Plan Assessment and plan (1) Pleural effusion: Problem details: Bilateral moderate effusions most likely reflecting volume overload in patient with poor underlying health and CHF. Status: Acute (2) Heart failure with reduced ejection fraction: Problem details: As above, increase diuresis. 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 - Alcohol dependence with other alcohol-induced disorder Status: Acute (5) Metabolic encephalopathy: Status: Acute (6) Atrial fibrillation: Qualifiers: Atrial fibrillation type: paroxysmal Qualified Code(s): I48.0 - Paroxysmal atrial fibrillation Status: Chronic Assessment & Plan narrative: NEURO: # Alcohol withdrawal on admission, resolving -- On thiamine, folic acid, and MTV -- precedex at low dose RESP: # Acute hypoxemic respiratory failure- resolving -- Secondary to aspiration PNA and pulmonary edema/chf --chest ct showing bilatreal pna c/f aspiration plus bilateral pleural effusion -- cxr 01/31 showing only aoveolar edema -- continue diuresis and abx -- extubated yesterday and doing well CVS: # A fib w/ RVR -- episode of tachycardia to 130's this am after suctioning turning-reportedly ST -- will get 12 lead EKG- -- ablumin bolus ordered, will change low dose levo to natalee gtt -- High lytes goal -- On eliquis [employer], now on lovenox sq bid, can transition back to PO eliquis when more stable, reliably tolerating PO -- Goal HR < 110 - ami oheld , lft trending down, now on lopressor and midodrine -- reposnded well to cardizem push for RVR last night # CHF -- continue lasix 20 mg TID for now, for even to slightly neg fluid balance -- BNP continues to dowtrend -- Strict I/O,, valdivia - - trend bmp : -- High lytes goal -- Monitor UOP as above ID: # Aspiration PNA -- follow blood cx - ngtd -- follow resp cx - yeast -- resp cultures repeated today- -- procalcitonin neg -- on zosyn, diflucan -- given sectretion load will continue abx ENDO: -- Goal BS < 180 FEN - tolerating slow advancement of feeds - S&S eval today MSK- has left humeral head fracture- POA, in sling. will need MRI to r/o rotator cuff tear, f/u ortho Has Gi and DVT ppx Full code, GOC discussions ongoing total cct 35 min D/w bedside RN. Time Spent With Patient Time with patient: 30 to 49 minutes with 50% spent counseling/coordinating care
--- NOTE | 2024-02-07 16:20 | ST.IPCSEOM ---
Visit Care Team Role Provider Type Jeferson Shine DO Primary Care Provider Physician Specialty: Family Practice Address: [address] [place] [address], [facility] [address], [address] Email: [email or web address] MD Other Providers Physician Specialty: Medical Address: Phone: Fax: Email: Edith Martinez MD Other Providers Physician Specialty: Medical Address: Phone: Fax: Email: David Powell MD Other Providers Physician Specialty: Pulmonology Address: [address] [address], [address], [place], [address] Email: [email or web address] MD Other Providers Physician Specialty: Pulmonology Address: [address] [place] [address] [address], [address] Email: [email or web address] MD Other Providers Physician Specialty: Medical Address: [address] [place] [address], [address] Phone: Fax: Email: Letitia Avalos MD Other Providers Physician Specialty: Internal Medicine Address: Phone: Fax: Email: Cori Corona MD Other Providers Physician Specialty: Pulmonology Address: [address] [place] [address] [address], [place], [address] Email: [email or web address] MD Other Providers Physician Specialty: Medical Address: Phone: Fax: Email: Swathi Son MD Other Providers Physician Specialty: Anesthesiology Internal Medicine Address: [address] [place], [address] Fax: Email: [email or web address] Other Providers Physician Specialty: Internal Medicine Address: [id number] [place] [address], [address] Phone: Fax: Email: [email or web address] Portillo Meadows MD Other Providers Physician Specialty: Internal Medicine Address: Phone: Fax: Email: Danie Yao MD Other Providers Physician Specialty: Medical Address: Phone: Fax: Email: Josep Wu MD Other Providers Physician Specialty: Internal Medicine Address: [address] [place], [address] Phone: Fax: Email: Tc Todd MD Other Providers Physician Specialty: Medical Address: [address], [address] Phone: Fax: Email: Deborah Guerrier MD Other Providers Physician Specialty: Medical Address: Phone: Fax: Email: Basilia Hairston Other Providers Physician Specialty: Medical Address: Phone: Fax: Email: Talya Burton MD Other Providers Physician Specialty: Internal Medicine Address: Phone: Fax: Email: Bárbara Hitchcock DO Other Providers Physician Specialty: Pulmonology Address: [address] [place] [address], [place], [address] Fax: Email: [email or web address] Brian Dominguez MD Emergency Provider Physician Specialty: Emergency Medicine Address: [address] [place] [address], [address] Email: [email or web address] Provider Physician Attending Provider Specialty: Internal Medicine Address: [address] [place] [address], [address] Fax: Email: [email or web address] Diagnoses Alcohol abuse, uncomplicated (01/24/24) Alcohol dependence with other alcohol-induced disorder (01/24/24) Metabolic encephalopathy (01/24/24) Paroxysmal atrial fibrillation (01/24/24) Unspecified systolic (congestive) heart failure (01/24/24) Pneumonitis due to inhalation of food and vomit (01/24/24) Pleural effusion, not elsewhere classified (01/24/24) Unspecified fracture of shaft of humerus, left arm, initial encounter for closed fracture (01/24/24) Past Medical History (Last Reviewed 02/01/24 @ 07:52 by Mathew Rivera MD) Arterial embolism of left leg (Medical) Atrial fibrillation (Medical 04/24/16) COPD (chronic obstructive pulmonary disease) (Medical) Essential hypertension (Medical 11/01/17) Gout (Medical) Peripheral neuropathy (Medical) Peripheral vascular disease (Medical) Pure hypercholesterolemia (Medical 04/24/16) Retinal detachment (Medical) Systolic congestive heart failure (Medical 04/24/16) Speech-Language Pathology Swallow Evaluation AIRPORT TRAFFIC CONTROLLER Clinical Swallow Evaluation Start: 02/07/24 12:26 Freq: Status: Active Protocol: Document 02/07/24 12:26 CG (Rec: 02/07/24 12:53 CG [id number]) Clinical Swallow Evaluation Session Time Visit Start Time 11:45 Visit Stop Time 12:10 Total Visit Minutes 25 Visit Information Visit Number 1 Referral Referring Provider Matt Morales D.O. Reason for Referral aspiration pna, recent extubation Setting Assessment Location Acute Care Visit Type Note Type Initial evaluation Next Note Type Next Note Type Treatment Note Patient Information Identification Type Name History Markos Savage is an 78yo male with history of alcohol abuse, HTN , COPD, PVD with history of peripheral arterial embolism, Chronic HFrEF, Atrial Fibrillation on Eliquis who presented to the ED on 01/24/24 with generalized weakness and frequent falls. The patient lives by himself with his family checking on him frequently, and family went to check on him after he did not return calls one night. Family went to check on him around 9pm on 01/23/24 and found him on the ground, too weak to get himself back up. He had a visible bruise on his face but was acting like his normal self. Family did note an empty whiskey bottle near him on the floor, as he reportedly drinks fairly heavily though the patient seems to minimize this. He declined transfer to the ED at that time, but today family noted he was still too weak to ambulate effectively and brought him to the ED for further evaluation. In ED, he denied any asymmetric neurologic weakness, headaches , vision changes, chest pain, dyspnea, cough. He indicated that he thought he had too many [place] hard lemonades the day before and slipped on his tile floor due to wearing socks only. In the ED, he was normotensive but mildly tachycardic in atrial fibrillation. His labs showed a minimally elevated CK of 183 as well as a magnesium level of 1.4. His creatinine was 1.35 which was only minimally above his baseline. CT of his Brain and Cervical spine were negative for acute pathology. Hip x-rays showed no acute fracture, though a left shoulder x-ray showed a minimal fracture of the left humeral tuberosity and his arm was placed in a sling. He was given IV thiamine, fluids and folate, but due to his inability to ambulate he was admitted for further care. Of note, he reported that he has trouble lifting his legs up off the gurney, though he is not clear on whether that is acute or chronic in nature. Pt continued with a complicated hospital course. Relevant moreno details are summarized below: 01/23/29: Pt admitted. T6 compression fracture identified on Xray. Chronic microvascular ischemic changes in white matter on head CT. 01/25/24: Pt awake, alert, oriented, able to work with PT for PT evaluation. 01/27/24: Follow up CXR suspicious for aspiration pneumonia. Pt agitated, pulling out oxygen and becoming hypoxic without O2 in place. 01/29/24: Overnight pt is intubated, on TPN, NG tube put in place. 01/30/24: CXR remaining suspicious for aspiration PNA. 02/01/24: NG tube feeds initiated. 02/06/24: Pt successfully extubated. ST evaluation ordered to determine if pt is safe for PO intake. Subjective Observations Pt was seated partially reclined in bed upon ST entry to the room, with daughter Aruna present in the room. Pt had both eyes open and appeared to understand as daughter explained that pt would need to wait to use bedpan as AIRPORT TRAFFIC CONTROLLER was there to assess swallow function. Per daughter's report, pt has been requesting water and c/o sore throat since extubation. Pt occasionally verbalized to communicate, but his voice was severely hoarse, which significantly decreases his volume and intelligibility. Proceeded with brief orientation assessment of yes/ no questions as pt demonstrated ability to either use thumbs up/thumbs down or verbal yes/no to answer. Pt accurately answered questions related to orientation to place (Are we in a library? No. Are we in a hospital? Yes.), time Is it night time? No. Is it early in the morning. Pt looks at clock and says, Well it's about noon.), and person (pt stated first and last name). Pt was able to follow all one-step commands. Pt was able to complete a dry swallow based on laryngeal palpation when cued. Reported by Patient/Caregiver Other Symptoms History of aspiration or pneumonia,Other Comment Recent extubation Current Diet NPO Baseline Feeding Method Independent in self-feeding The IDDSI Framework Protocol: IDDSI.1 Objective Assessment Mental Status Responsive,Cooperative, Lethargic Oral Integrity WFL Dentition Upper dentures/partials,Lower dentures/partials,Edentulous Lip Function Moderate impairment Tongue Function Moderate impairment Jaw Function Moderate impairment Comment Full OME not completed due to pt weakness and time constraints. The following were of note during informal assessment/observation of oral motor function throughout brief OME and PO trials: -Pt is edentulous but wears upper and lower dentures at home per daughter which allows him to eat solid foods at home. -Oral mucosa appears intact without significant residue present -Pt with very weakened cued cough, likely not strong enough to clear/protect the airway from aspirated material -Oral sensation and reaction time appears mildly-moderately decreased based on reduced acceptance of bolus via teaspoon and pt needing cues to close mouth around spoon -Lingual movement and strength appear moderately-severely impaired based on observation of oral bolus hold and A-P lingual movement during PO trials Food and Liquid Trials Position During Assessment Slightly reclined,In bed Liquids Trialed Ice chips,Thin (IDDSI 0) Solid Trials Purred (IDDSI 4) Administration Type Tea spoon,Dependent feeding Oral Impairment Severely impaired Oral Phase Comments Trials ice chip via tsp were characterized by poor oral acceptance with pt requiring verbal cues to close mouth around spoon to accept ice chip. Minimal lingual movement was observed while ice chip was held in the mouth . Minimal A-P lingual propulsion observed. Trials 1/2 tsp applesauce were characterized by poor oral acceptance with pt requiring verbal cues to close mouth around spoon to accept bolus. Minimal A-P lingual propulsion observed. Pt needed about 10- 15 seconds to propel bolus through oral cavity and initiate pharyngeal swallow. Trial thin liquid via tsp was characterized by poor oral acceptance with pt requiring verbal cues to close mouth around spoon to accept bolus. Minimal bolus hold observed as pt presented with near immediate cough, suspected to be due to premature spillage from the oral cavity. Overall, pt presents with deficits in oral motor control which interfere with his ability to safely hold a bolus in the oral cavity and effectively propel it posteriorly to initiate pharyngeal swallow reflex. This presents as a safety risk due to possibility for premature spillage from the oral cavity to the pharynx which may result in aspiration . Tolerance was better with ice chips due to the fact that they melt slowly, allowing only a small amount of liquid to pass into the pharynx at a time. Pharyngeal Impairment Severely impaired Pharyngeal Phase Comments All trials (ice chip, applesauce, water) were characterized by very slow initiation of the pharyngeal swallow reflex, and subjectively slow anterior/ superior movement of the larynx during the swallow, though objective conclusions about physiological function cannot be drawn without an instrumental assessment. During trials of ice chips and applesauce, the pt did not present with overt s/sx aspiration/penetration. During trials thin liquid via teaspoon, the pt presented with immediate weak cough, and apiration is suspected. Results Pt's oral and pharyngeal muscles present as weakened and slow to react to stimuli at this time, which decreases pt's safety with PO intake. Additionally, the pt presents with the following risk factors for developing aspiration pneumonia as outlined by Mg (2005), Karolina & Meseret (2020), Job et al (2002), and Job et al (1998): Dependence for feeding. Dependence for oral care. Limited or infrequent ambulation. Compromised respiratory system . Impaired cough function. Previous aspiration pneumonia. Impaired health status ( compromised immune system). Pt therefore remains at high risk for developing aspiration pneumonia. Recommending ice chips and strict oral care to maintain and rehabilitate swallow reflex while decreasing risk of developing/ worsening aspiration pneumonia . The IDDSI Framework Protocol: IDDSI.1 Findings Swallowing Function Oropharyngeal phase dysphagia Severity of Swallow Impairment Severely impaired Contributing Factors to Swallow Reduced oral strength/ Impairment coordination/sensation,Delayed swallow initiation,Impaired airway protection Prognosis Fair Based on History of aspiration/ aspiration pneumonia,Duration of symptoms/severity,Other ( comment) Comment Complicated health history Impact on Safety and Functioning Risk for aspiration,Risk for inadequate nutrition/hydration Recommendations Instrumental Assessment No Swallowing Treatment Yes Other Recommendations -Recommend MBSS when pt would be more able to tolerate -Ice chips only, one at a time -Strict oral care -Upright positioning for intake Safety Precautions/Swallowing To be fed only by trained Recommendations staff/family,Remain upright ( 90 degrees) during all oral intake,Strict oral care after intake Medication Recommendations Not Recommended by Mouth Education Patient/Caregiver Education Described results of evaluation,Patient expressed understanding of evaluation, Family/caregivers expressed understanding of evaluation, Family/caregivers expressed agreement with goals & treatment plans Goals Short-term Goals 1. Pt will tolerate therapeutic trials thin liquid via tsp without overt s/sx aspiration in order to progress towards less restrictive intake. 2. Pt will safely and efficiently tolerate therapeutic trials puree via tsp without overt s/ sx aspiration in order to progress towards less restrictive intake. 3. Pt will complete restorative pharyngeal exercises ( effortful swallow, chin tuck against resistance, etc) with 80% accuracy in order to rehabilitate pharyngeal function to PLOF. Long-term Goals Pt will safely and efficiently tolerate least restrictive diet in order to meet his nutrition/hydration needs.
--- NOTE | 2024-02-07 16:26 | OT.IPNOTE ---
Pt just intubated yesterday and his daughter states has not slept since being extubated, Pt states too tired and refusing evals at this time. To attempt tomorrow as appropriate.
--- NOTE | 2024-02-07 16:26 | PT-IP ANOTE ---
PT re-consulted after extubation. Noted Hgb dropped four points overnight. Daughter nearby and pt is lethargic and she reports that he has not slept since extubation. Pt states that he is out of it today. Will con't PT efforts at a later time as pt is able to participate.
--- NOTE | 2024-02-07 17:29 | PM.PN.1 ---
Subjective Subjective Interval history: Patient more awake and alert today. [employer] SET UP TECHNICIAN evaled and gave ice chips for now. Patient on the fence about whether he would want to be intubated again in the future. Said thats a hard choice and says he will think on it. Will remain full code for now. PT/OT ordered. Exam Vital Signs (past 8 hours): - 02/07/24 09:30 02/07/24 09:30 02/07/24 09:55 Temperature Pulse Rate 78 83 Respiratory Rate 23 20 Blood Pressure 95/52 L Pulse Oximetry 98 95 Oxygen Delivery Method Room Air 02/07/24 10:00 02/07/24 10:00 02/07/24 10:30 Temperature Pulse Rate 85 Respiratory Rate 23 Blood Pressure 99/53 L 94/51 L Pulse Oximetry 87 L Oxygen Delivery Method 02/07/24 10:30 02/07/24 11:00 02/07/24 11:00 Temperature Pulse Rate 81 85 Respiratory Rate 23 27 H Blood Pressure 90/54 L Pulse Oximetry 89 L 91 Oxygen Delivery Method 02/07/24 11:30 02/07/24 11:30 02/07/24 11:43 Temperature Pulse Rate 83 Respiratory Rate 24 Blood Pressure 93/55 L Pulse Oximetry 92 Oxygen Delivery Method Nasal Cannula 02/07/24 12:00 02/07/24 12:00 02/07/24 12:30 Temperature 100.3 F H Pulse Rate 83 91 H Respiratory Rate 27 H 31 H Blood Pressure 103/56 L Pulse Oximetry 88 L 87 L Oxygen Delivery Method 02/07/24 12:30 02/07/24 13:00 02/07/24 13:00 Temperature 98.1 F Pulse Rate 86 Respiratory Rate 24 Blood Pressure 114/61 105/53 L Pulse Oximetry 84 L Oxygen Delivery Method 02/07/24 13:30 02/07/24 13:30 02/07/24 14:00 Temperature Pulse Rate 92 H 89 Respiratory Rate 22 14 Blood Pressure 109/58 L Pulse Oximetry 84 L 85 L Oxygen Delivery Method 02/07/24 14:00 02/07/24 14:30 02/07/24 14:30 Temperature Pulse Rate 96 H Respiratory Rate 25 H Blood Pressure 110/51 L 88/53 L Pulse Oximetry 84 L Oxygen Delivery Method 02/07/24 15:00 02/07/24 15:00 02/07/24 15:30 Temperature Pulse Rate 95 H 99 H Respiratory Rate 25 H 32 H Blood Pressure 104/51 L Pulse Oximetry 98 95 Oxygen Delivery Method 02/07/24 15:30 02/07/24 16:00 02/07/24 16:00 Temperature Pulse Rate Respiratory Rate Blood Pressure 111/70 114/55 L Pulse Oximetry Oxygen Delivery Method Nasal Cannula 02/07/24 16:00 Temperature Pulse Rate 99 H Respiratory Rate 32 H Blood Pressure Pulse Oximetry 93 Oxygen Delivery Method Fraction of Inspired Oxygen 24 SaO2/FiO2 Ratio 395 Oxygen Delivery Method Nasal Cannula Oxygen Flow Rate 0.5 Narrative Exam Narrative: Alert and oriented x2-3 NAD, NG tube in place Lungs clear heart regular Abdomen ND, NT Legs free of edema. Cachectic. Objective Labs 02/07/24 04:16 02/07/24 04:16 Labs: Laboratory Results - last 24 hr 02/07/24 02/07/24 04:16 07:42 WBC 11.1 H RBC 2.85 L Hgb 8.7 L Hct 26.6 L MCV 93.6 MCH 30.5 MCHC 32.6 RDW 13.9 Plt Count 311 Neut % (Auto) 75.9 H Lymph % (Auto) 15.8 L Cedar % (Auto) 7.4 Eos % (Auto) 0.4 L Baso % (Auto) 0.5 Neut # (Auto) 8400 H Lymph # (Auto) 1800 Cedar # (Auto) 800 Eos # (Auto) 0 Baso # (Auto) 100 Sodium 139 Potassium 3.3 L Chloride 104 Carbon Dioxide 33 H BUN 33 H Creatinine 1.15 Estimated GFR > 60 BUN/Creatinine Ratio 28.7 H Glucose 110 Calcium 8.3 L Magnesium 2.3 Total Bilirubin 0.5 AST 119 H ALT 104 H Alkaline Phosphatase 431 H Total Protein 5.8 L Albumin 2.6 L Globulin 3.2 Albumin/Globulin Ratio 0.8 L PFSH Medical History Gout COPD (chronic obstructive pulmonary disease) Peripheral neuropathy Retinal detachment Peripheral vascular disease Essential hypertension (11/01/17) Pure hypercholesterolemia (04/24/16) Systolic congestive heart failure (04/24/16) Atrial fibrillation (04/24/16) Arterial embolism of left leg Surgical History Anesthesia History of surgery History of eye surgery History of cataract removal with insertion of prosthetic lens Family History Father History of heart disease Sister Cancer Social History household members: none Smoking Status: Former smoker alcohol intake: current Assessment & Plan Assessment & Plan narrative: 1. Septic shock. Present on admission and now resolved. - New infiltrates on CXR 01/26/24. - intubated on 01/28 PM for worsening respiratory status / failure. CT shows pneumonia w/ bilateral pleural effusions. - Ceftriaxone 1 gm Q24h, changed to Zosyn. Leukocytosis now resolved. - added fluconazole for possible yobany infection with budding yeast and pseudohyphae on sputum culture. 400 mg dosing given initially, continue 200 mg daily for 14 days for presumed thrush and possible candidal pneumonia. Fungal culture from thoracentesis are negative. Cultures pending. The pleural fluid is culture negative at this point. -now extubated on 02/05 -continue midodrine TID 2. Aspiration pneumonia, present on admission and improving. 3. Acute septic encephalopathy, present on admission and improving. 4. MAGALYS, present on admission and improving. 5. Acute hypoxic respiratory failure, likely aspiration pneumonia, Acute on chronic HFrEF with R pleural effusion. Present on admission and active. -echocardiogram without evidence of significant worsened cardiomyopathy. Ejection fraction is 45-55%. -able to extubate on 02/05 6. Severe Chronic Protein Calorie Malnutrition. Present on admission and active. r/t to decreased energy intake and increased protein needs with CHF as evidenced by severe muscle wasting (temporalis, interosseous) and severe subcutaneous fat loss (buccal and orbital fat pads), <75% of estimated energy requirements for >1 month, BMI 20.6 (underweight for age), and substance abuse. -Started TF on 01/28 and will continue. Goal tube feeds are 45 cc per hour, will see if he tolerates 20 cc with his small stomach. Watch phos levels closely, high risk for refeeding syndrome. -continue NG tube feeds until swallow test with [employer]ING SET UP TECHNICIAN, not passing yet and ice chips only 7. Severe alcohol withdrawal with delirium, Present on admission and improved. - Precedex drip, Phenobarbital increased dose and prn and Haldol. Does not respond well to Lorazepam. - Continue IV Thiamine and Folate. 8. Atrial Fibrillation, Persistent with RVR. Present on admission and RVR now resolved. - on lovenox now given no PO intake for anticoagulation. Held for thoracentesis 01/29. - difficulties with afib with RVR the last few days. Did receive amiodarone loading IV and now on po amio 200mg BID - metoprolol IV prn for rate control. - got dose of IV dilt on 02/05 which helped RVR, now in 9. Acute on Chronic HFrEF, Present on admission and active. - Last LVEF was 30% via TTE in 2022. Now with EF of 45-55% 10. Ambulatory Dysfunction, Present on admission and active. 11. Ground Level Fall, Present on admission and active. 12. Lower Extremity Weakness with history of T6 Compression Fracture, Present on admission and active. His fall was likely secondary to alcohol intoxication though does have bilateral weakness with T6 compression fracture. He could not tolerate the planned MR of T spine to make sure no spinal pathology and the Shoulder MR plan was also deferred. - Treat alcohol and hypomagnesemia as noted below. - Given his lower extremity weakness and history of T6 compression fracture, tried to do a thoracic spine MRI to rule out acute issue, though he does not have other clinical signs of cord compression. 13. Hypomagnesemia, Present on admission and improved. - Replace as needed, monitor. 14. Left Humeral Head Fracture. Present on admission and active. Mildly displaced per x-ray. - Continue sling. Non-operative with outpatient management for now, discussed with orthopedics whom recommended MRI for this patient for further evaluation for possible rotator cuff injury. - PRN Hydrocodone and IV Dilaudid while sedated. - shoulder MRI deferred for now as noted above. 15. Essential Hypertension, not active. - holding home medications, resume when pressures improve. 16. Tobacco use and dependence. Present on admission and active. - nicotine patch Placement -[facility] has [facility] him when he is ready. Likely several more days. Code Status: Full Code, surrogate is patient's daughter. Had GOC discussion on 02/06 and patient will think about DNR/DNI, but isn't sure yet. DVT: on Eliquis normally, now on Lovenox BID 1mg / kg, held prior to thoracentesis but will resume. Dispo: Remains ICU for now. Now extubated as of 02/05. Still on precedex intermittently. Quality VTE Deep Vein Thrombosis/Pulmonary Embolism Present on Admission: No
[2024-02-07] MEDS: DEXTROSE 5% WATER 1,000 ML 84 ML IV (17:37)
--- NOTE | 2024-02-07 20:41 | PM.ICURNDS ---
- Date Patient Seen: 02/07/24 Time Patient Seen: 20:41 :: This patient was seen via real time interactive two-way audiovisual telecommunication. Note: remains extubated on 2Lnc HR 90s needs goals of care addressed in am .
[2024-02-07] MEDS: ENOXAPARIN 60 MG/0.6 ML SYRINGE SUBCUT (21:18)
[2024-02-08] VITALS (47 sets, daily range): BP systolic 101–165; BP diastolic 51–94; PULSE 57–176; RESP 20–36; TEMP 36.4–37.1; O2SAT 83–100
[2024-02-08 04:24] LABS: Add Manual Diff / Slide Review NO; Basophils Absolute Auto 100 /uL (0-100); Basophils Percent Auto 0.9 % (0-2); Eosinophils Absolute Auto 100 /uL (0-450); Eosinophils Percent Auto 0.6 % (2-4); Hematocrit 25.4 % (41-53); Hemoglobin 8.5 g/dL (13.5-17.5); Lymphocytes Absolute Auto 1900 /uL (1100-4500); Mean Corpuscular HGB Conc 33.3 % (30-36); Mean Corpuscular Hemoglobin 31.3 PG (26-34); Monocytes Absolute Auto 700 /uL (0-900); Monocytes Percent Auto 6.4 % (3-14); Neutrophils Absolute Auto 7700 /uL (1500-7000); Neutrophils Percent Auto 74.1 % (50-75); Platelet Count 385 X10^3/uL (150-400); Red Cell Distribution Width 14.1 % (11.6-14.8); White Blood Cell Count 10.4 X10^3/uL (4.5-11.0)
[2024-02-08 04:38] LABS: Alanine Aminotransferase 74 IU/L (<50); Albumin 2.6 g/dL (3.5-5.0); Albumin Globulin Ratio 0.9 (1.0-2.8); Alkaline Phosphatase 323 U/L (38-126); Aspartate Aminotransferase 71 IU/L (17-59); BUN Creatinine Ratio 29.6 (6-22); Bilirubin Total 0.6 mg/dL (0.2-1.3); Blood Urea Nitrogen 29 mg/dL (9-20); Calcium 8.1 mg/dL (8.4-10.2); Carbon Dioxide 34 mmol/L (22-32); Chloride 103 mmol/L (98-107); Estimated Glomerular Filt Rate > 60 mL/min (>60); Glucose 114 mg/dL (80-110); HEMOLYSIS < 15 (0-50); Potassium 3.3 mmol/L (3.4-5.1); Sodium 134 mmol/L (137-145); Total Protein 5.6 g/dL (6.3-8.2)
[2024-02-08] MEDS: dexmedeTOMIDine in 0.9 % NaCL 400 MCG/100 ML PLAST..BAG 11.612 MCG IV (05:38)
[2024-02-08] MEDS: MIDODRINE HCL 5 MG TABLET 10 MG PO (05:38)
[2024-02-08] MEDS: DEXTROSE 5% WATER 1,000 ML 84 ML IV ×2 (06:55→18:45)
[2024-02-08] MEDS: METOPROLOL IR 25 MG TABLET 12.5 MG PO (08:49)
[2024-02-08] MEDS: FUROSEMIDE 40 MG/4 ML VIAL 20 MG IV (08:49)
[2024-02-08] MEDS: ENOXAPARIN 60 MG/0.6 ML SYRINGE SUBCUT ×2 (08:56→20:53)
[2024-02-08] MEDS: SODIUM CHLORIDE 0.9% FLUSH 10 ML IV ×2 (08:57→13:31)
[2024-02-08] MEDS: PANTOPRAZOLE 40 MG VIAL IV (08:57)
[2024-02-08] MEDS: THIAMINE 100 MG in SODIUM CHLORIDE 0.9% 100 ML 404 MG IV (08:57)
--- NOTE | 2024-02-08 09:53 | P.TELICUPN_ITS ---
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-activities manager care: Yes Patient Location: ICU Provider location (State): [place] Other participants/roles: Dr. Shields Interval history: no acute events overnight Current Medications Current Medications Medications: Home Medications lisinopril 10 mg tablet 5 mg (1/2 x 10 mg) PO BID #180 tabs 11/01/22 [Rx Confirmed 01/25/24] spironolactone 25 mg tablet 25 mg PO DAILY #90 tabs 02/06/23 [Rx Confirmed 01/25/24] metoprolol succinate 50 mg tablet,extended release 24 hr 50 mg PO BID #180 tabs 08/10/23 [Rx Confirmed 01/25/24] apixaban 2.5 mg tablet (Eliquis) 2.5 mg PO BID #60 tabs 08/27/23 [Rx Confirmed 01/25/24] atorvastatin 80 mg tablet 80 mg PO BEDTIME #30 tabs 10/24/23 [Rx Confirmed 01/25/24] furosemide 20 mg tablet 20 mg PO BID #180 tabs 11/12/23 [Rx Confirmed 01/25/24] Visit Medications (administered) Generic Name Dose Route Start Last Admin Trade Name Freq PRN Reason Stop Dose Admin Albuterol/Ipratropium 3 ml 01/30/24 02:01 02/06/24 09:11 Albuterol/Ipratropium 3 Ml Ampul INH 3 ml RTQ4HR PRN Administration Shortness Of Breath Enoxaparin Sodium 60 mg 02/07/24 21:00 02/08/24 08:56 Enoxaparin 60 Mg/0.6 Ml Syringe SUBCUT 60 mg BID FRANKO Administration Fentanyl 25 mcg 01/30/24 13:02 02/05/24 17:59 Fentanyl 100 Mcg/2 Ml Inj IV 25 mcg Q1H PRN Administration Pain, Severe (7-10) Furosemide 20 mg 01/31/24 15:00 02/08/24 08:49 Furosemide 40 Mg/4 Ml Vial IV 20 mg TID FRANKO Administration Heparin Sodium (Porcine) 50 unit 02/07/24 21:00 02/07/24 21:20 Heparin Flush (Cl/Picc/Mid-Line) 50 Unit/5 Ml Syringe IV 50 unit BID FRANKO Administration dexmedeTOMIDine in 0.9 % NaCL 400 mcg in 100 mls @ 2.903 mls/hr 01/26/24 19:30 02/08/24 06:13 Precedex IV 0.2 mcg/kg/hr TITRATE FRANKO 2.903 mls/hr Titration Protocol 0.2 MCG/KG/HR Fluconazole 200 mg in 100 mls @ 100 mls/hr 01/31/24 11:00 02/07/24 10:29 Diflucan IV 02/13/24 11:59 100 mls/hr Q24H FRANKO Administration Thiamine HCl 100 mg/ Sodium 101 mls @ 404 mls/hr 02/04/24 15:00 02/08/24 08:57 Chloride IV 404 mls/hr TID FRANKO Administration Folic Acid 1 mg/ Sodium 100.2 mls @ 200.4 mls/hr 02/04/24 11:00 02/07/24 09:00 Chloride IV 200 mls/hr DAILY FRANKO Administration Dextrose 1,000 mls @ 84 mls/hr 02/07/24 17:30 02/08/24 06:55 Dextrose 5% Water IV 84 mls/hr CONT FRANKO Administration Loperamide HCl 2 mg 02/06/24 15:02 02/07/24 12:47 Loperamide 2 Mg Capsule PO 2 mg QID PRN Administration Diarrhea Metoprolol Tartrate 5 mg 02/03/24 10:56 02/04/24 17:48 Metoprolol Tartrate 5 Mg/5 Ml Inj IV 5 mg Q1HR PRN Administration heart rate over 120 Metoprolol Tartrate 12.5 mg 02/04/24 21:00 02/08/24 08:49 Metoprolol Ir 25 Mg Tablet PO 12.5 mg BID FRANKO Administration Midodrine 10 mg 02/07/24 12:00 02/08/24 05:38 Midodrine Hcl 5 Mg Tablet PO 10 mg 0600,1200,1800 FRANKO Administration Nicotine 14 mg 01/25/24 12:45 02/08/24 09:14 Nicotine 14 Patch TOP Not Given DAILY FRANKO Ondansetron HCl 4 mg 01/24/24 22:11 02/06/24 22:28 Ondansetron 4 Mg/2 Ml Inj IV 4 mg Q6HR PRN Administration Nausea And Vomiting Pantoprazole Sodium 40 mg 01/30/24 09:00 02/08/24 08:57 Pantoprazole 40 Mg Vial IV 40 mg DAILY FRANKO Administration Polyethylene Glycol 17 gm 02/04/24 16:10 02/08/24 08:57 Polyethylene Glycol 3350 17 Gm Powd.Pack PO Not Given DAILY FRANKO Sennosides 8.6 mg 02/04/24 16:10 02/08/24 08:57 Sennosides 8.6 Mg Tablet PO Not Given DAILY FRANKO Sodium Chloride 10 ml 02/01/24 00:28 02/06/24 03:50 Sodium Chloride 0.9% Flush IV 10 ml PRN PRN Administration Flush Sodium Chloride 10 ml 02/01/24 09:00 02/08/24 08:57 Sodium Chloride 0.9% Flush IV 10 ml BID FRANKO Administration Objective Ventilator Parameters: Ventilator Settings FiO2 25 CPAP Pressure Amount 5 RT Vent Frequency 14 Ventilator Tidal Volume 400 Exhaled Vt/kg IBW 6 Positive End Expiratory 5 Pressure Ventilator Pressure Support 5 Inspiratory Phase Time 1.0 I:E Ratio 1:3.3 Patient Position HOB >= 30 degrees Labs 02/08/24 04:10 02/08/24 04:10 Labs: Laboratory Results - last 24 hr 02/08/24 04:10 WBC 10.4 RBC 2.70 L Hgb 8.5 L Hct 25.4 L MCV 94.0 MCH 31.3 MCHC 33.3 RDW 14.1 Plt Count 385 Neut % (Auto) 74.1 Lymph % (Auto) 18.0 L [place] % (Auto) 6.4 Eos % (Auto) 0.6 L Baso % (Auto) 0.9 Neut # (Auto) 7700 H Lymph # (Auto) 1900 [place] # (Auto) 700 Eos # (Auto) 100 Baso # (Auto) 100 Sodium 134 L Potassium 3.3 L Chloride 103 Carbon Dioxide 34 H BUN 29 H Creatinine 0.98 Estimated GFR > 60 BUN/Creatinine Ratio 29.6 H Glucose 114 H Calcium 8.1 L Total Bilirubin 0.6 AST 71 H ALT 74 H Alkaline Phosphatase 323 H Total Protein 5.6 L Albumin 2.6 L Globulin 3.0 Albumin/Globulin Ratio 0.9 L Exam Vital Signs (past 8 hours): - 02/08/24 02:00 02/08/24 02:00 02/08/24 03:00 Temperature Pulse Rate 103 H 87 Respiratory Rate 23 24 Blood Pressure 114/58 L Pulse Oximetry 96 99 Oxygen Delivery Method Oxygen Flow Rate 2 04/12/24 03:00 02/08/24 04:00 02/08/24 04:00 Temperature 97.6 F Pulse Rate 84 Respiratory Rate 21 Blood Pressure 115/56 L 113/55 L Pulse Oximetry 98 Oxygen Delivery Method Oxygen Flow Rate 2 2 02/08/24 04:00 02/08/24 05:00 02/08/24 05:00 Temperature Pulse Rate 65 Respiratory Rate 23 Blood Pressure 101/55 L Pulse Oximetry 98 Oxygen Delivery Method Nasal Cannula Oxygen Flow Rate 2 02/08/24 06:00 02/08/24 06:00 02/08/24 07:00 Temperature Pulse Rate 57 L Respiratory Rate 22 Blood Pressure 103/51 L 107/55 L Pulse Oximetry 98 Oxygen Delivery Method Oxygen Flow Rate 2 02/08/24 07:00 02/08/24 08:00 02/08/24 08:00 Temperature Pulse Rate 58 L 70 Respiratory Rate 20 23 Blood Pressure 112/54 L Pulse Oximetry 99 96 Oxygen Delivery Method Oxygen Flow Rate 02/08/24 08:56 02/08/24 09:00 02/08/24 09:00 Temperature 97.5 F L Pulse Rate 81 Respiratory Rate 24 Blood Pressure 115/57 L Pulse Oximetry 94 Oxygen Delivery Method Oxygen Flow Rate Fraction of Inspired Oxygen 24 SaO2/FiO2 Ratio 404 Oxygen Delivery Method Nasal Cannula Oxygen Flow Rate 2 Quality TeleICU VTE Deep Vein Thrombosis/Pulmonary Embolism Present on Admission: No Assessment & Plan Assessment and plan (1) Pleural effusion: Problem details: Bilateral moderate effusions most likely reflecting volume overload in patient with poor underlying health and CHF. Status: Acute (2) Heart failure with reduced ejection fraction: Problem details: As above, increase diuresis. 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 - Alcohol dependence with other alcohol-induced disorder Status: Acute (5) Metabolic encephalopathy: Status: Acute (6) Atrial fibrillation: Qualifiers: Atrial fibrillation type: paroxysmal Qualified Code(s): I48.0 - Paroxysmal atrial fibrillation Status: Chronic Assessment & Plan narrative: a/p afebrile, HD stable mental status improving, comfortable NEURO: -neurochecks/seizure precautions -mental status much improved -ciwa protocol -minimize sedatives -thiamine/folate -dc precedex RESP: # Acute hypoxemic respiratory failure improved, extubated now on NC -abx -check final cxs -dc lasix, c02 rising CVS: -rate controlled -continue lopressor -would dc midodrine -full ac per primar yteam # CHF -dc lasix, do as needed- - trend bmp : -- monitor ins/outs -replace ly flora prn ID: # Aspiration PNA -abx ENDO: -- Goal BS 140- 180 FEN - tolerating slow advancement of feeds - S&S eval today MSK- has left humeral head fracture- POA, in sling. will need MRI to r/o rotator cuff tear, f/u ortho gi/dvt ppx goals of care severity of illness dicussion to be had today please call eICu if condition changes total cct 35 min D/w bedside RN. , Dr. Nieves Time Spent With Patient Time with patient: 30 to 49 minutes with 50% spent counseling/coordinating care
--- NOTE | 2024-02-08 11:10 | ST.IPDYTX ---
Visit Care Team Role Provider Type Jeferson Shine DO Primary Care Provider Physician Specialty: Family Practice Address: [address] [place] [address], [facility] [address], [place], [address] Email: [email or web address] Dennis Vasquez MD Other Providers Physician Specialty: Medical Address: Phone: Fax: Email: Edith Martinez MD Other Providers Physician Specialty: Medical Address: Phone: Fax: Email: David Powell MD Other Providers Physician Specialty: Pulmonology Address: [address] [address], [address], [place], [address] Email: [email or web address] Aime Marques MD Other Providers Physician Specialty: Pulmonology Address: [address] [place] [address] [address], [place], [address] Email: [email or web address] Cam Manley MD Other Providers Physician Specialty: Medical Address: [address] [place] [address], [address] Phone: Fax: Email: Letitia Avalos MD Other Providers Physician Specialty: Internal Medicine Address: Phone: Fax: Email: Cori Corona MD Other Providers Physician Specialty: Pulmonology Address: [address] [place] [address] [address], [place], [address] Email: [email or web address] Anotn Roe MD Other Providers Physician Specialty: Medical Address: Phone: Fax: Email: Swathi Son MD Other Providers Physician Specialty: Anesthesiology Internal Medicine Address: [address] [place], [address] Fax: Email: [email or web address] [email or web address] Randolph MD Other Providers Physician Specialty: Internal Medicine Address: [id number] [place] [address], [address] Phone: Fax: Email: [email or web address] Portillo Meadows MD Other Providers Physician Specialty: Internal Medicine Address: Phone: Fax: Email: Danie Yao MD Other Providers Physician Specialty: Medical Address: Phone: Fax: Email: Josep Wu MD Other Providers Physician Specialty: Internal Medicine Address: [address] [place], [address] Phone: Fax: Email: Tc Todd MD Other Providers Physician Specialty: Medical Address: [address], [address] Phone: Fax: Email: Deborah Guerrier MD Other Providers Physician Specialty: Medical Address: Phone: Fax: Email: Basilia Hairston Other Providers Physician Specialty: Medical Address: Phone: Fax: Email: Talya Burton MD Other Providers Physician Specialty: Internal Medicine Address: Phone: Fax: Email: Bárbara Hitchcock DO Other Providers Physician Specialty: Pulmonology Address: [address] [place] [address], [place], [address] Fax: Email: [email or web address] Brian Dominguez MD Emergency Provider Physician Specialty: Emergency Medicine Address: [address] [place] [address], [address] Email: [email or web address] Aime Sommers MD Admit Provider Physician Attending Provider Specialty: Internal Medicine Address: [address] [place] [address], [address] Fax: Email: [email or web address] Dysphagia Treatment [employer] Dysphagia Treatment Start: 02/08/24 11:00 Freq: Status: Active Protocol: Document 02/08/24 11:00 CG (Rec: 02/08/24 11:04 CG [id number]) Dysphagia Treatment Session Time Visit Start Time 10:10 Visit Stop Time 10:50 Total Visit Minutes 40 Setting Assessment Location Acute Care Patient Information Subjective Observations Pt was seated partially reclined in bed upon ST entry to the room, with daughter Aruna present in the room. Pt had both eyes closed but was able to open with verbal cue. Per daughter's report, pt has not been receiving ice chips. She also states she does not think his mouth was cleaned yesterday. Pt occasionally verbalized to communicate. His voice remains severely hoarse, but slightly more audible than yesterday. Pt was able to follow all one-step commands and was agreeable to oral care and trials of ice chips. Treatment Liquids Trialed Ice chips,Thin (IDDSI 0) Solids Trialed Purred (IDDSI 4) Treatment Activities Assisted in providing oral care while providing caregiver education to daughter Min Valdovinos) about rationale for oral care during NPO (except ice chips) status and the need for using a toothbrush rather than just a toothette sponge in order to break up biofilm. Provided education re user of alcohol free mouthwash to reduce xerostomia as well as use of suctioning and upright positioning to reduce risk of aspiration during oral care. Proceeded with PO trials of ice chips and 1/2 tsp applesauce. Additionally, provided caregiver education in cueing frequent dry swallow to facilitate rehabilitation of swallow reflex. The IDDSI Framework Protocol: IDDSI.1 Assessment Patient Response to Treatment Poor Rehab Potential Poor Assessment of Improvement Trials ice chips via tsp were characterized by poor oral acceptance with pt requiring verbal cues to close mouth around spoon to accept ice chip. Minimal lingual movement was observed while ice chip was held in the mouth . Minimal A-P lingual propulsion observed. Trials 1/2 tsp applesauce were characterized by poor oral acceptance with pt requiring verbal cues to close mouth around spoon to accept bolus. Minimal A-P lingual propulsion observed. Pt needed about 10- 15 seconds to propel bolus through oral cavity and initiate pharyngeal swallow. Across trials, no overt s/sx aspiration were observed, though silent aspiration cannot be ruled out without an instrumental assessment and is highly probable given pt presentation and medical status. Overall, pt continues to present with deficits in oral motor control which interfere with his ability to safely hold a bolus in the oral cavity and effectively propel it posteriorly to initiate pharyngeal swallow reflex. As before, this presents as a safety risk due to possibility for premature spillage from the oral cavity to the pharynx which may result in aspiration. Pt's oral and pharyngeal muscles continue to present present as weakened and slow to react to stimuli at this time, which decreases pt's safety with PO intake. Additionally, the pt presents with the following risk factors for developing aspiration pneumonia as outlined by Mg (2005), Karolina & Arash Portillo (2020), Job et al (2002), and Job et al (1998): Dependence for feeding. Dependence for oral care. Limited or infrequent ambulation. Compromised respiratory system . Impaired cough function. Previous aspiration pneumonia. Impaired health status ( compromised immune system). Pt therefore remains at high risk for developing aspiration pneumonia. Recommending ice chips and strict oral care to maintain and rehabilitate swallow reflex while decreasing risk of developing/ worsening aspiration pneumonia . Additionally, recommend frequent cues for dry swallows to continue to stimulate swallow reflex. Recommendations Recommendations Continue Current Diet Medication Recommendations Not Recommended by Mouth Comments Ice chips only, one at a time Aspiration Precautions Recommended Precautions Upright at 90 Degrees Treatment Plan Placement Recommendation after Discharge Clinical Informatics Educator Care Facility,Home with Hospice Appropriate for Continued Therapy Yes
--- NOTE | 2024-02-08 11:10 | SLP.IPNOTE ---
LICENSED MARRIAGE AND FAMILY THERAPIST recommendations/notes as of 02/08/24, 11:00am: 1. Continue recommendations as outlined yesterday re ice chip presentation. 2. Ensure oral care is being performed (even if no visible oral residue present). 3. Continue encouraging suctioning secretions. 4. LICENSED MARRIAGE AND FAMILY THERAPIST (Starla) available for consult by phone on Sat 02/08 as needed. Phone number listed in inpatient rehab office. 5. See Dysphagia Treatment note for full details of tx visit.
[2024-02-08] MEDS: FLUCONAZOLE 200 MG/100 ML PIGGYBACK 100 MG IV (11:20)
--- NOTE | 2024-02-08 11:37 | DIET.CONS ---
Dietary Consultation Note Admission Date: 01/24/2024 21:04 Assessment: Nutrition f/u for enteral nutrition. His tube feedings are currently off. [facility] NPO at this time. RN reported large loose stools 02/05-02/06. Rec trialing fiber containing formula r/t to loose stools. Ht: 167.64 cm Wt: 58.06 kg BMI: 20.6 UBW: Last BM: 02/07/24 (02/07/24 13:02) MNA: 8 Misael Score: 12 Diet: 02/07/24 17:41 NPO Diet Diet Modifications: NPO Type: NPO except for Ice Chips Labs: RBC 2.70 X10^6/uL (4.5-5.9) L 02/08/24 04:10 Hgb 8.5 g/dL (13.5-17.5) L 02/08/24 04:10 Hct 25.4 % (41-53) L 02/08/24 04:10 Creatinine 0.98 mg/dL (0.66-1.25) 02/08/24 04:10 Lactate 1.1 mmol/L (0.7-2.1) 02/04/24 08:00 NT-Pro-B Natriuret Pep 3240 pg/mL (<450) H 02/02/24 04:35 Nutrition Diagnosis: Severe Chronic Protein Calorie Malnutrition r/t to decreased energy intake and increased protein needs with CHF as evidenced by severe muscle wasting (temporalis, interosseous) and severe subcutaneous fat loss (buccal and orbital fat pads), <75% of estimated energy requirements for >1 month, BMI 20.6 (underweight for age), and substance abuse. Interventions: 1. Rec enteral feedings with Jevity 1.2 starting at 20 mL/hr. Rate may be advanced 10 mL q8-12hr as tolerated. Goal feeding is continuous enteral feedings of Jevity 1.2 running at 30 mL/hr providing 864 kcals, 40 g of protein, and 581 mL feed water. Fluids to be managed by tele-ICU repairer typewriter. Formula Jevity 1.2 meets 51% of energy needs and 47% of protein needs. Goal for supplementary PO intake when cleared by SENIOR QA AUTOMATION ENGINEER. EER: [id number] kcals/day (30 kcals/kg per BMI) 85-95 g protein/day (1.5 g/kg for severe malnutrition) Monitoring/Evaluations: Initiation of TF, rate advancement, tolerance, diet advancement per SENIOR QA AUTOMATION ENGINEER Electronically Signed by: Fely Wallace 02/08/24 11:[address] [address]
--- NOTE | 2024-02-08 12:00 | PT.IIE ---
Current Diagnoses Alcohol abuse, uncomplicated (01/24/24) Alcohol dependence with other alcohol-induced disorder (01/24/24) Metabolic encephalopathy (01/24/24) Paroxysmal atrial fibrillation (01/24/24) Unspecified systolic (congestive) heart failure (01/24/24) Pneumonitis due to inhalation of food and vomit (01/24/24) Pleural effusion, not elsewhere classified (01/24/24) Unspecified fracture of shaft of humerus, left arm, initial encounter for closed fracture (01/24/24) Surgical History (Last Reviewed 02/01/24 @ 07:52 by Mathew Rivera MD) Anesthesia History of cataract removal with insertion of prosthetic lens History of eye surgery History of surgery Medical History (Last Reviewed 02/01/24 @ 07:52 by Mathew Rivera MD) Arterial embolism of left leg Atrial fibrillation (04/24/16) COPD (chronic obstructive pulmonary disease) Essential hypertension (11/01/17) Gout Peripheral neuropathy Peripheral vascular disease Pure hypercholesterolemia (04/24/16) Retinal detachment Systolic congestive heart failure (04/24/16) Physical Therapy Inpatient Evaluation/Re-Eval M1 PT/OT-IP Prior Functional Status Start: 01/25/24 11:40 Freq: NEEDED Status: Active Protocol: Document 02/08/24 12:00 AB (Rec: 02/08/24 14:18 AB [id number]) Medical Review Prior Functional Status Medical History Reviewed Yes Communication able to make needs known; with confusion and inconsistent with following directions Mobility and Gait pt stated that he was independent with all mobilities and ambulation without AD Social History Household Members none Living Arrangements House Number of Floors (Floors) Two Floors Number of Stairs To Enter/Railing? pt stated that he can stay on main level of the house has 2 steps R rail ascending to enter the house Home Environment Standard Height Toilet,Walk in Shower,Tub/Shower Doors Home Equipment Straight Cane,Shower Seat without Backrest,Hand Held Shower,Grab Bars In Shower Additional Social History Comment pt stated that he usually sleeps on his couch M2 PT-IP Current Condition Start: 01/25/24 11:40 Freq: NEEDED Status: Active Protocol: Document 02/08/24 12:00 AB (Rec: 02/08/24 14:18 AB [id number]) Physical Therapy Current Condition Current Condition Evaluation Date 02/08/24 Treatment Diagnosis s/p fall; L shoulder fx; aspiration pneumonia; difficulty in walking Onset Date 01/24/24 M3 PT-IP Subjective Start: 01/25/24 11:40 Freq: NEEDED Status: Active Protocol: Document 02/08/24 12:00 AB (Rec: 02/08/24 14:18 AB [id number]) Subjective Physical Therapy Visit Type Type Initial Evaluation Visit Start Time 12:00 Visit Stop Time 12:55 Number of SHIPPING ORDER CLERK Visits 0 Physical Therapy Visit Comments Patient Comments agreeable to do PT M4 PT-IP Mobility and Gait Start: 01/25/24 11:40 Freq: NEEDED Status: Active Protocol: Document 02/08/24 12:00 AB (Rec: 02/08/24 14:18 AB [id number]) PT-Bed Mobility Assessment Supine to Sit Supine to Sit Total Assistance,2 Person Assistance,Head of Bed Elevated,Bedrails PT-Transfer Assessment Sit to and From Stand Sit to and from Stand Maximum Assistance,Total Assistance,2 Person Assistance ,Use of Upper Extremities Equipment Transfer Assistive Device Bed Rail,Donny Walker Orthotic/Prosthetic Devices or Brace: Yes Comments Mobility Comments pt supine in bed and agreed to do PT. pt was evaluated but was d/c'd when pt became not medically stable to do PT. received new PT eval. pt found supine in bed without sling on. asked nurse for sling order and sling was dispensed to pt. pt completed supine to sit total A x 2 and max cues. able to sit on EOB max A x 1-2 and max cues. presents with increase posterior trunk lean and lateral leaning to the L. pt fitting with a sling on LUE . completed sit <> stand x 2 reps with max A x 2 to total A x 2 and max cues. pt was unable to get to full upright position despite max A x 2 to total Ax 2 provided. pt used hemiwalker to assist. pt requested to go back to bed and refused to transfer to the chair. total A x 2 for scooting towards HOB. total A x 2 for sit to supine and positioning in bed. call light and table placed within reach. co-eval conducted with OT due to pt's complex medical and mobility issues requiring co- tx. Gait Assessment Comments Gait Comments unable PT-Balance Assessment Sitting Balance and Reactions Static Sitting Balance Ability Poor Dynamic Sitting Balance Ability Poor Standing Balance and Reactions Static Standing Balance Ability Poor Dynamic Standing Balance Ability Poor M5 PT-IP Objective Assessments Start: 01/25/24 11:40 Freq: NEEDED Status: Active Protocol: Document 02/08/24 12:00 AB (Rec: 02/08/24 14:18 AB [id number]) Orientation Orientation/Cognition Level of Alertness Alert Orientation Name Safety Awareness Decreased Safety Awareness Memory Description Short Term Impaired Comments with confusion Gross Range of Motion Lower Extremity ROM Impairments increase bilateral ankle tightness towards DF Strength Lower Extremity Strength Assessment Bilaterally Impaired Hip 2+/5 Knee 3-/5 Ankle 2/5 Muscle Tone Muscle Tone WNL Yes M6 PT-IP Treatment Start: 01/25/24 11:40 Freq: NEEDED Status: Active Protocol: Document 02/08/24 12:00 AB (Rec: 02/08/24 14:18 AB [id number]) Physical Therapy Treatment Education Education Provided Safety M7 PT-IP Assessment and Plan Start: 01/25/24 11:40 Freq: NEEDED Status: Active Protocol: Document 02/08/24 12:00 AB (Rec: 02/08/24 14:18 AB [id number]) PT Summary Assessment and Plan Potential Rehabilitation Potential Fair Status of Condition at Evaluation Evolving Summary Impairments Pain,ROM,Strength,Balance, Coordination,Sensation,Tone, Cognition,Bed Mobility, Transfers,Gait,Activity Tolerance Assessment Summary pt is an 78 y/o M who was admitted 01/24/24 s/p fall and sustained a T6 compression fx and L shoulder fx. pt was evaluated by PT 01/25/24 but was d/c'd 01/29/24 due to pt's medical instability. pt had an aspiration PNA and was intubated and was just extubated yesterday. pt currently requiring max A x 2 to total A x 2 with all mobilities and unable to ambulate at this time. Recommeding mechanical lift transfers with nursing staff at this time. pt will require SNF rehab to improve overall strength and mobility. will continue to assess progress. Goals Bed Mobility Goal Minimal Assistance Transfer Goal Minimal Assistance Gait Goal Minimal Assistance,Donny Walker Gait Distance 25 Other Goals improve bed mobility, transfers,ambulation using LRAD ~ 150 ft mod I up/down 2 steps R rail ascending SBA Days to Meet Goals 10 Frequency of Treatment Frequency Of Treatment Once a Day Treatment Plan Physical Therapy Treatment Plan Bed Mobility Training,Transfer Training,Gait Training, Therapeutic Exercise,Balance Retraining,Discharge Planning, Hot or Cold Pack,Neuromuscular Re-ed,Coordination Retraining ,Manual Therapy Precautions Shoulder Precautions Sling Weight Bearing Status Weight Bearing Status Non-Weight Bearing Allowed Weight Bearing Amount (enter % LUE NWB or #) (%) Recommendations To Nursing Amount of Assist Needed Mechanical Lift Discharge Recommendations PT Discharge Recommendations SNF Rehab Transportation Needs at Discharge Wheelchair/Cabulance,Stretcher /Ambulance
[2024-02-08] MEDS: POTASSIUM CHLORIDE 20 MEQ/15 ML UDC 40 MEQ TUBE (12:14)
--- NOTE | 2024-02-08 13:08 | DI.RAD.S_ITS ---
PROCEDURE: XR CHEST 1V INDICATIONS: NG placement TECHNIQUE: One view of the chest was acquired. COMPARISON: [facility], CR, XR CHEST 1V, 02/05/2024, 18:18. [facility], CR, XR CHEST 1V, 02/01/2024, 14:49. FINDINGS: Surgical changes and devices: Esophagogastric tube has been advanced with the side port now on the gastric body. The inferior tip of the tube is not visualized, extending below the imaging margin. PICC line stable from right-sided approach extending into the distal SVC. Lungs and pleura: Lungs are unchanged with alveolar infiltration at each lower lobe. Small subpulmonic bilateral pleural effusions and no pneumothorax. Mediastinum: Mediastinal contours appear normal. Heart size is normal. Bones and chest wall: No suspicious bony lesions. Overlying soft tissues appear unremarkable. IMPRESSION: Esophagogastric tube positioning has been advanced with the side port in the gastric body but the inferior tip is not visualized because it extends below the imaging margin. Dictated by: Bob Belcher M.D. on 02/08/2024 at 14:14 Approved by: Bob Belcher M.D. on 02/08/2024 at 14:16
--- NOTE | 2024-02-08 13:09 | PC.NURSE ---
Addendum entered by Starla Mckeon R.N. 02/08/24 17:39: Per Tariq Schmitz good position for tube feedings; started at 20ml/hr after a water flush of 30ml. Addendum entered by Starla Mckeon R.N. 02/08/24 13:41: after PT worked with pt, HR 160's, BP 160's/90's. Metoprolol 5mg IV given. HR now 120, BP 129/63 Original Note: NG accidently pulled while pt mobilized to sit at side of bed. NG 14fr in right nare. pt tolerated well without drinking water. +air auscultated over RUQ. portable CXR ordered for placement. Daughter, Kimberly at bedside.
[2024-02-08] MEDS: METOPROLOL TARTRATE 5 MG/5 ML INJ IV (13:31)
--- NOTE | 2024-02-08 13:47 | CM.DPNOTE ---
DCP Cont Patient discussed in multidisciplinary rounds. Patient remains off the vent. Patient remains full code. According to Dr Shields, all known advanced directives remain the same. swallow eval pending. therapies still pending as Hgb was low yesterday. According to MARIBEL Burrows, patient has more waking hours although cognition seems to wax and wane. Call from Salvatore at [facility]; updated that the Hospice slot being held for Sunday can be released. This CM team will plan to update [facility] as medical plan of care unfolds. Plan: TBD. SNF for rehab vs hospice. Dispo options are dependant on patient's recovery now that patient is extubated, and ongoing goals of care discussions. Provider advises holding on discharge planning until more is known from therapy evaluations. [facility] had accepted patient earlier in patient's hospital stay. CM team will plan to follow closely and can re-approach [facility] or another SNF of patient/family's choice, as needed, when discharge needs are better known. [place]
--- NOTE | 2024-02-08 16:05 | OT.IP.EVAL ---
Current Diagnoses Alcohol abuse, uncomplicated (01/24/24) Alcohol dependence with other alcohol-induced disorder (01/24/24) Metabolic encephalopathy (01/24/24) Paroxysmal atrial fibrillation (01/24/24) Unspecified systolic (congestive) heart failure (01/24/24) Pneumonitis due to inhalation of food and vomit (01/24/24) Pleural effusion, not elsewhere classified (01/24/24) Unspecified fracture of shaft of humerus, left arm, initial encounter for closed fracture (01/24/24) Past Medical History (Last Reviewed 02/01/24 @ 07:52 by Mathew Rivera MD) Arterial embolism of left leg Atrial fibrillation (04/24/16) COPD (chronic obstructive pulmonary disease) Essential hypertension (11/01/17) Gout Peripheral neuropathy Peripheral vascular disease Pure hypercholesterolemia (04/24/16) Retinal detachment Systolic congestive heart failure (04/24/16) Surgical History (Last Reviewed 02/01/24 @ 07:52 by Mathew Rivera MD) Anesthesia History of cataract removal with insertion of prosthetic lens History of eye surgery History of surgery Occupational Therapy Inpatient Evaluation/Re-Eval M1 PT/OT-IP Prior Functional Status Start: 01/25/24 11:40 Freq: NEEDED Status: Active Protocol: Document 02/08/24 12:00 AB (Rec: 02/08/24 14:18 AB [id number]) Medical Review Prior Functional Status Medical History Reviewed Yes Communication able to make needs known; with confusion and inconsistent with following directions Mobility and Gait pt stated that he was independent with all mobilities and ambulation without AD Social History Household Members none Living Arrangements House Number of Floors (Floors) Two Floors Number of Stairs To Enter/Railing? pt stated that he can stay on main level of the house has 2 steps R rail ascending to enter the house Home Environment Standard Height Toilet,Walk in Shower,Tub/Shower Doors Home Equipment Straight Cane,Shower Seat without Backrest,Hand Held Shower,Grab Bars In Shower Additional Social History Comment pt stated that he usually sleeps on his couch M1 PT/OT-IP Prior Functional Status Start: 01/25/24 15:16 Freq: NEEDED Status: Active Protocol: Document 02/08/24 12:00 MARCELO (Rec: 02/08/24 16:05 [facility] [id number]) Medical Review Prior Functional Status Medical History Reviewed Yes Diet/Fluid Consistency NPO Communication able to make needs known; with confusion and inconsistent with following directions Mobility and Gait pt stated that he was independent with all mobilities and ambulation without AD Activities of Daily Living and IADL's pt reports that he performed sponge baths and was able to dress himself. pt used microwave to prepare food. Social History Household Members none Living Arrangements House Number of Floors (Floors) Two Floors Number of Stairs To Enter/Railing? pt stated that he can stay on main level of the house has 2 steps R rail ascending to enter the house Home Environment Standard Height Toilet,Walk in Shower,Tub/Shower Doors Home Equipment Straight Cane,Shower Seat without Backrest,Hand Held Shower,Grab Bars In Shower Additional Social History Comment pt stated that he usually sleeps on his couch M2 OT-IP Current Condition Start: 01/25/24 15:16 Freq: Status: Active Protocol: Document 02/08/24 12:00 [facility] (Rec: 02/08/24 16:05 [facility] [id number]) Occupational Therapy Current Condition Current Condition Evaluation Date 02/08/24 Treatment Diagnosis s/p fall, L shoulder fx, aspiration PNA, difficulty walking Diagnosis Onset Date 01/24/24 Post Operative Precautions Shoulder Precautions Sling Other Precautions NWB L UE M3 OT- IP Subjective and Pain Start: 01/25/24 15:16 Freq: Status: Active Protocol: Document 02/08/24 12:00 MARCELO (Rec: 02/08/24 16:05 [facility] [id number]) OT- Subjective Occupational Therapy Visit Type Type Initial Evaluation Visit Start Time 12:00 Visit Stop Time 12:55 Notes pt reclined in bed on entrance of OT/PT for co-eval, pt agreeable to participate OT Pain Assessment Pain When Pain Assessed After Treatment Pain Present Pain Present Denied Pain M4 OT- IP ADL's Start: 01/25/24 15:16 Freq: Status: Active Protocol: Document 02/08/24 12:00 MARCELO (Rec: 02/08/24 16:05 [facility] [id number]) OT FMS-Nghk-Stpcaqy General Evaluation Diet Level for Self-Feeding NPO OT ADL-Grooming General Evaluation Grooming Ability Maximum Assistance Areas Needing Assistance Retrieving/Set-up of Grooming Items,Combing/Brushing Hair Comments OT Grooming Comments pt performed EOB, pt able to comb <25% of his head without assistance. OT ADL-Oral Care Comments Oral Care Comments not assessed at time of eval due to NPO OT ADL-Dressing General Eval Upper Body Dressing Ability Total Assistance Lower Body Dressing Ability Total Assistance Areas Needing Assistance Retrieving/Set-up of Clothing, Pull-Over Shirt,Socks Comments OT Dressing Comments pt requires total A for L sling managment, UB clothing mgmt, and LB clothing mgmt. pt would benefit from donny dressing techniques and possibly from AE education. OT ADL-Toileting General Evaluation Toileting Ability Total Assistance Comments OT Toileting Comments pt currently dependent with toileting using catheter and brief OT ADL-Bathing General Evaluation Bathing Ability Maximal Assistance,Total Assistance Comments OT Bathing Comments not assessed during eval. based on pt's performance during other eval components, pt will likely require at least max A for EOB or in bed sponge bath. M5 OT- IP IADL's Start: 01/25/24 15:16 Freq: Status: Active Protocol: Document 02/08/24 12:00 [facility] (Rec: 02/08/24 16:05 [facility] [id number]) OT-Instrumental Activities of Daily Living Deficits IADL Deficits Identified Deficits Home Safety Awareness Awareness of Need for Assistance at Home Decreased Awareness Ability to Problem Solve Emergency Unable to Problem Solve Situations Medication Management Medication Management Comments pt likely needs assist to perform safely Money Management Money Management Comments pt likely needs assist to perform safely Meal Preparation Meal Preparation Comments pt will need assist on d/c Applications Sales Consultant Applications Sales Consultant Comments pt will need assist on d/c Driving Driving Comments pt will need assist on d/c M6 OT- IP Functional Cognition Start: 01/25/24 15:16 Freq: Status: Active Protocol: Document 02/08/24 12:00 [facility] (Rec: 02/08/24 16:05 [facility] [id number]) Cognitive Factors Limiting Selfcare Function Cognitive Ability Level of Alertness Alert Patient Orientation Name Attention Span Ability Capable of Focused Attention, Capable of Sustained Attention Ability to Follow Commands Able to Follow One Step Commands with Increased Time, Able to Follow One Step Commands with Repetition Memory Description Short Term Impaired,Group Home Impaired Safety Awareness Underestimates Need for Assistance Executive Function Ability Unable to Filter Distractions Cognitive Comments Cognitive Assessment Comments pt A&O to name. pt stated month as december, year as 1990 and his location as [facility]. pt may benefit from SLUMS. OT- Vision and Hearing OT- Hearing Assessment OT- Hearing Assessment WFL OT- Vision Assessment Visual Acuity WFL M7 OT- IP Mobility and Balance Start: 01/25/24 15:16 Freq: Status: Active Protocol: Document 02/08/24 12:00 [facility] (Rec: 02/08/24 16:05 [facility] [id number]) OT- Bed Mobility Assessment Supine to Sit Supine to Sit Assist Total Assistance,2 Person Assistance Sit to Supine Sit to Supine Assist Total Assistance,2 Person Assistance Scooting Scooting to Edge of Bed Total Assistance,2 Person Assistance Scooting Up and Down in Bed Total Assistance,2 Person Assistance OT-Transfer Assessment Sit to and From Stand Sit to and from Stand Maximum Assistance,Total Assistance,2 Person Assistance Devices Transfer Assistive Devices Gait Belt,Donny Walker Comments Mobility Comments pt sat EOB with max A of 1-2 due to posterior and L leaning . pt fitted with a sling on L UE while EOB. pt performed sit>stand x2 reps and was unable to get to full upright position. pt request to go back to bed and declined t/f to chair. OT- Gait Assessment Comments Gait Ability Comments unable to assess, not safe at this time OT- Balance Assessment Sitting Balance and Reactions Static Sitting Balance Ability Poor Dynamic Sitting Balance Ability Poor Standing Balance and Reactions Static Standing Balance Ability Poor Dynamic Standing Balance Ability Poor M8 OT- IP Objective Assessments Start: 01/25/24 15:16 Freq: Status: Active Protocol: Document 02/08/24 12:00 [facility] (Rec: 02/08/24 16:05 [facility] [id number]) OT Gross Range of Motion Upper Extremity Range of Motion Assessment Bilaterally Impaired ROM Impairments L shoulder not assessed due to humeral fracture. L elbow/ wrist/hand WFL. R shoulder ~0- 45, R elbow/wrist/hand WFL OT Strength Upper Extremity Strength Assessment Bilaterally Impaired Hand Clinical Services Professional Strength Hand Dominance Right Comments Strength Comments R tricep/bicep 3+/5 OT-Muscle Tone Assessment Muscle Tone WNL No M9 OT- IP Assessment and Plan Start: 01/25/24 15:16 Freq: Status: Active Protocol: Document 02/08/24 12:00 MARCELO (Rec: 02/08/24 16:05 MARCELO [id number]) OT Summary Assessment and Plan Potential Rehabilitation Potential Fair Analytic Complexity at Evaluation High Summary OT Impairments Pain,Range of Motion,Strength, Balance,Coordination, Functional Cognition, Functional Mobility,Grooming, Dressing,Toileting,Bathing, Toilet Transfers,Shower Transfers,Activity Tolerance Progress Towards Goals Slow Progress due to Medical Issues,Slow Progress due to Activity Tolerance,Slow Progress due to Cognition Assessment Summary pt is 78 yo M admitted 01/23 s/ p fall and sustained a T6 compression fx and L shoulder fx. pt had aspiration PNA and was intubated and extubated yesterday. pt demonstrates significant deficits in strength, ROM, BADLs, balance, coordination, activity tolerance, and functional mobility. Pt is appropriate for skilled OT services to address deficits and promote return toward PLOF. Pt will need assistance 21/05 and would benefit from SNF. Goals Grooming Goal Minimal Assistance Dressing Goal Minimal Assistance Toileting Goal Minimal Assistance Bathing Goal Minimal Assistance Toilet Transfer Goal Minimal Assistance Shower Transfer Goal Minimal Assistance Days to Meet Goals 14 Frequency of Treatment Frequency Of Treatment Once a Day Treatment Plan OT Treatment Plan ADL Training,Functional Cognition Training,Functional Mobility,Therapeutic Exercises ,Patient/Family Education, Discharge Planning Other Treatment Recommendations and Next donny dressing technique, AE Treatment Focus training, possible SLUMS Discharge Recommendations OT Discharge Recommendations SNF Rehab Transportation Needs at Discharge Wheelchair/Cabulance,Stretcher /Ambulance
--- NOTE | 2024-02-08 16:27 | P.PN_ITS ---
Subjective Subjective Interval history: Patient more awake and alert today. SOCIAL CONTACT WORKER evaled and gave ice chips for now. Tube feeds were re-started. PT/OT today. Exam Vital Signs (past 8 hours): - 02/08/24 08:56 02/08/24 09:00 02/08/24 09:00 Temperature 97.5 F L Pulse Rate 81 Respiratory Rate 24 Blood Pressure 115/57 L Pulse Oximetry 94 Oxygen Delivery Method Oxygen Flow Rate 02/08/24 09:00 02/08/24 10:00 02/08/24 10:00 Temperature Pulse Rate 91 H Respiratory Rate 24 Blood Pressure 130/63 Pulse Oximetry 95 Oxygen Delivery Method Nasal Cannula Oxygen Flow Rate 02/08/24 11:00 02/08/24 11:00 02/08/24 11:30 Temperature Pulse Rate 94 H 97 H Respiratory Rate 20 22 Blood Pressure 132/60 Pulse Oximetry 95 96 Oxygen Delivery Method Oxygen Flow Rate 02/08/24 12:00 02/08/24 12:00 02/08/24 12:00 Temperature Pulse Rate 88 140 H Respiratory Rate 25 H Blood Pressure 131/64 Pulse Oximetry 96 Oxygen Delivery Method Oxygen Flow Rate 2 02/08/24 12:30 02/08/24 12:58 02/08/24 12:58 Temperature Pulse Rate 176 H 134 H Respiratory Rate 36 H 27 H Blood Pressure 117/70 Pulse Oximetry 86 L 93 Oxygen Delivery Method Oxygen Flow Rate 02/08/24 13:00 02/08/24 13:00 02/08/24 13:30 Temperature Pulse Rate 140 H 158 H 131 H Respiratory Rate 24 26 H 32 H Blood Pressure Pulse Oximetry 94 88 L 94 Oxygen Delivery Method Oxygen Flow Rate 02/08/24 13:33 02/08/24 13:33 02/08/24 13:36 Temperature Pulse Rate 125 H 105 H Respiratory Rate 28 H 29 H Blood Pressure 165/67 H Pulse Oximetry 93 93 Oxygen Delivery Method Oxygen Flow Rate 02/08/24 13:36 02/08/24 14:00 02/08/24 14:00 Temperature Pulse Rate 104 H Respiratory Rate 28 H Blood Pressure 129/63 144/68 H Pulse Oximetry 98 Oxygen Delivery Method Oxygen Flow Rate 02/08/24 14:30 02/08/24 14:30 02/08/24 14:55 Temperature Pulse Rate 109 H 113 H Respiratory Rate 26 H 27 H Blood Pressure 139/64 Pulse Oximetry 98 98 Oxygen Delivery Method Oxygen Flow Rate 02/08/24 14:55 02/08/24 15:00 02/08/24 15:00 Temperature Pulse Rate 137 H Respiratory Rate 30 H Blood Pressure 141/81 H 136/87 Pulse Oximetry 97 Oxygen Delivery Method Oxygen Flow Rate 02/08/24 15:30 02/08/24 15:30 02/08/24 16:00 Temperature Pulse Rate 136 H 117 H Respiratory Rate 28 H 25 H Blood Pressure 146/67 H Pulse Oximetry 87 L 93 Oxygen Delivery Method Oxygen Flow Rate 02/08/24 16:00 Temperature Pulse Rate Respiratory Rate Blood Pressure 135/81 Pulse Oximetry Oxygen Delivery Method Oxygen Flow Rate Fraction of Inspired Oxygen 24 SaO2/FiO2 Ratio 404 Oxygen Delivery Method Nasal Cannula Oxygen Flow Rate 2 Narrative Exam Narrative: Alert and oriented x2-3 NAD, NG tube in place Lungs clear heart regular Abdomen ND, NT Legs free of edema. Cachectic. Objective Labs 02/08/24 04:10 02/08/24 04:10 Labs: Laboratory Results - last 24 hr 02/08/24 04:10 WBC 10.4 RBC 2.70 L Hgb 8.5 L Hct 25.4 L MCV 94.0 MCH 31.3 MCHC 33.3 RDW 14.1 Plt Count 385 Neut % (Auto) 74.1 Lymph % (Auto) 18.0 L [place] % (Auto) 6.4 Eos % (Auto) 0.6 L Baso % (Auto) 0.9 Neut # (Auto) 7700 H Lymph # (Auto) 1900 [place] # (Auto) 700 Eos # (Auto) 100 Baso # (Auto) 100 Sodium 134 L Potassium 3.3 L Chloride 103 Carbon Dioxide 34 H BUN 29 H Creatinine 0.98 Estimated GFR > 60 BUN/Creatinine Ratio 29.6 H Glucose 114 H Calcium 8.1 L Total Bilirubin 0.6 AST 71 H ALT 74 H Alkaline Phosphatase 323 H Total Protein 5.6 L Albumin 2.6 L Globulin 3.0 Albumin/Globulin Ratio 0.9 L PFSH Medical History Gout COPD (chronic obstructive pulmonary disease) Peripheral neuropathy Retinal detachment Peripheral vascular disease Essential hypertension (11/01/17) Pure hypercholesterolemia (04/24/16) Systolic congestive heart failure (04/24/16) Atrial fibrillation (04/24/16) Arterial embolism of left leg Surgical History Anesthesia History of surgery History of eye surgery History of cataract removal with insertion of prosthetic lens Family History Father History of heart disease Sister Cancer Social History household members: none Smoking Status: Former smoker alcohol intake: current Assessment & Plan Assessment & Plan narrative: 1. Septic shock. Present on admission and now resolved. - New infiltrates on CXR 01/26/24. - intubated on 42 PM for worsening respiratory status / failure. CT shows pneumonia w/ bilateral pleural effusions. - Ceftriaxone 1 gm Q24h initially, changed to Zosyn. Leukocytosis now resolved. He has completed antibiotic course to this point. - added fluconazole for possible yobany infection with budding yeast and pseudohyphae on sputum culture. 400 mg dosing given initially, continue 200 mg daily for 14 days for presumed thrush and possible candidal pneumonia. Fungal culture from thoracentesis are negative. Cultures pending. The pleural fluid is culture negative at this point. -now extubated on 02/05 -will trial off midodrine, hypertensive today. 2. Aspiration pneumonia, present on admission and improving. - has been treated. Continue SOCIAL CONTACT WORKER evaluations as encephalopathy improves from alcohol withdrawal and sepsis. 3. Acute septic encephalopathy, present on admission and improving. 4. MAGALYS, present on admission and improving. 5. Acute hypoxic respiratory failure, likely aspiration pneumonia, Acute on chronic HFrEF with R pleural effusion. Present on admission and active. -echocardiogram without evidence of significant worsened cardiomyopathy. Ejection fraction is 45-55%. -able to extubate on 02/05 6. Severe Chronic Protein Calorie Malnutrition. Present on admission and active. r/t to decreased energy intake and increased protein needs with CHF as evidenced by severe muscle wasting (temporalis, interosseous) and severe subcutaneous fat loss (buccal and orbital fat pads), <75% of estimated energy requirements for >1 month, BMI 20.6 (underweight for age), and substance abuse. -Started TF on 01/28 and will continue. Goal tube feeds are 45 cc per hour, will see if he tolerates 20 cc with his small stomach. Watch phos levels closely, high risk for refeeding syndrome. -continue NG tube feeds until swallow test with SOCIAL CONTACT WORKER, not passing yet and ice chips only 7. Severe alcohol withdrawal with delirium, Present on admission and improved. - Precedex drip, Phenobarbital increased dose and prn and Haldol. Does not respond well to Lorazepam. - Continue IV Thiamine and Folate. 8. Atrial Fibrillation, Persistent with RVR. Present on admission and RVR now resolved. - on lovenox now given no PO intake for anticoagulation. Held for thoracentesis 01/29 but back on. - difficulties with afib with RVR the last few days. Did receive amiodarone loading IV and now on po amio 200mg BID - metoprolol IV prn for rate control. - got dose of IV dilt on 02/05 which helped RVR. - have started oral metoprolol, rate still a bit high today will increase from 12.5 mg BID to 25 mg BID 9. Acute on Chronic HFrEF, Present on admission and active. - Last LVEF was 30% via TTE in 2022. Now with EF of 45-55% 10. Ambulatory Dysfunction, Present on admission and active. 11. Ground Level Fall, Present on admission and active. 12. Lower Extremity Weakness with history of T6 Compression Fracture, Present on admission and active. His fall was likely secondary to alcohol intoxication though does have bilateral weakness with T6 compression fracture. He could not tolerate the planned MR of T spine to make sure no spinal pathology and the Shoulder MR plan was also deferred. - Treat alcohol and hypomagnesemia as noted below. - Given his lower extremity weakness and history of T6 compression fracture, tried to do a thoracic spine MRI to rule out acute issue, though he does not have other clinical signs of cord compression. 13. Hypomagnesemia, Present on admission and improved. - Replace as needed, monitor. 14. Left Humeral Head Fracture. Present on admission and active. Mildly displaced per x-ray. - Continue sling. Non-operative with outpatient management for now, discussed with orthopedics whom recommended MRI for this patient for further evaluation for possible rotator cuff injury. - PRN Hydrocodone and IV Dilaudid while sedated. - shoulder MRI deferred for now as noted above. 15. Essential Hypertension, not active. - holding home medications, resume only if hypertensive off of midodrine. 16. Tobacco use and dependence. Present on admission and active. - nicotine patch, family requests this be removed today. [facility] Likely several more days. Code Status: Full Code, surrogate is patient's daughter. Had GOC discussion on 02/06 and patient will think about DNR/DNI, but isn't sure yet. Will continue to readdress. DVT: on Eliquis normally, now on Lovenox BID 1mg / kg, held prior to thoracentesis temporarily. Dispo: Remains ICU for now. Now extubated as of 02/05. Still on precedex intermittently. I spent 30 minutes providing critical care management this patient. This excludes time spent in performing separately billed procedures. Quality VTE Deep Vein Thrombosis/Pulmonary Embolism Present on Admission: No
--- NOTE | 2024-02-08 20:28 | PM.ICURNDS ---
- Date Patient Seen: 02/08/24 Time Patient Seen: 20:29 :: This patient was seen via real time interactive two-way audiovisual telecommunication. Note: no acute events during the day continue current care
[2024-02-08] MEDS: METOPROLOL IR 25 MG TABLET PO (20:54)
[2024-02-08] MEDS: HALOPERIDOL 5 MG/ML VIAL IV (23:46)
[2024-02-09] VITALS (52 sets, daily range): BP systolic 88–170; BP diastolic 52–99; PULSE 63–151; RESP 18–35; TEMP 37.1–37.3; O2SAT 78–100
[2024-02-09] MEDS: METOPROLOL TARTRATE 5 MG/5 ML INJ IV ×2 (00:16→15:07)
[2024-02-09] MEDS: dexmedeTOMIDine in 0.9 % NaCL 400 MCG/100 ML PLAST..BAG 14.515 MCG IV (01:59)
[2024-02-09 04:41] LABS: Add Manual Diff / Slide Review NO; Basophils Absolute Auto 100 /uL (0-100); Basophils Percent Auto 0.6 % (0-2); Eosinophils Absolute Auto 0 /uL (0-450); Eosinophils Percent Auto 0.4 % (2-4); Hematocrit 23.8 % (41-53); Hemoglobin 7.8 g/dL (13.5-17.5); Lymphocytes Absolute Auto 1300 /uL (1100-4500); Lymphocytes Percent Auto 13.2 % (25-40); Mean Corpuscular HGB Conc 32.9 % (30-36); Mean Corpuscular Hemoglobin 30.8 PG (26-34); Mean Corpuscular Volume 93.4 fL (80-100); Monocytes Absolute Auto 600 /uL (0-900); Monocytes Percent Auto 6.3 % (3-14); Neutrophils Absolute Auto 8200 /uL (1500-7000); Neutrophils Percent Auto 79.5 % (50-75); Platelet Count 371 X10^3/uL (150-400); Red Blood Cell Count 2.54 X10^6/uL (4.5-5.9); Red Cell Distribution Width 14.1 % (11.6-14.8); White Blood Cell Count 10.2 X10^3/uL (4.5-11.0)
[2024-02-09 04:48] LABS: Alanine Aminotransferase 58 IU/L (<50); Albumin 2.7 g/dL (3.5-5.0); Alkaline Phosphatase 278 U/L (38-126); Aspartate Aminotransferase 55 IU/L (17-59); Bilirubin Total 0.4 mg/dL (0.2-1.3); Blood Urea Nitrogen 18 mg/dL (9-20); Calcium 8.2 mg/dL (8.4-10.2); Carbon Dioxide 35 mmol/L (22-32); Chloride 102 mmol/L (98-107); Estimated Glomerular Filt Rate > 60 mL/min (>60); Globulin 2.6 g/dL (1.7-4.1); Glucose 143 mg/dL (80-110); HEMOLYSIS < 15 (0-50); Potassium 3.5 mmol/L (3.4-5.1); Sodium 133 mmol/L (137-145); Total Protein 5.3 g/dL (6.3-8.2)
[2024-02-09] MEDS: DEXTROSE 5% WATER 1,000 ML 84 ML IV (06:14)
--- NOTE | 2024-02-09 06:52 | PC.NURSE ---
Patient alert and confused, became increasingly agitated and uncooperative throughout the night, around 0000 patient started hitting, pinching, and attempting to bite staff. Precedex maxed out, patient was not responding to precedex and continued to become more agitated. MD Sampson notified ordered PRN 5mg Haldol and PO Seroquel. Patient's daughter called and notified, came to bedside. Patient responded well to IV 5mg Haldol and daughters presence. Seroquel not administered. During patients agitation his HR sustained 180s, 5mg IV Metoprolol administered, patient responded well. Patient vitals WNL throughout night, besides HR previously mentioned. Tolerating 2LNC, lungs diminished. Patient reports having no pain, turned q2, call light within reach.
[2024-02-09] MEDS: ENOXAPARIN 60 MG/0.6 ML SYRINGE SUBCUT ×2 (08:44→21:14)
[2024-02-09] MEDS: POTASSIUM CHLORIDE 20 MEQ/15 ML UDC TUBE (08:44)
[2024-02-09] MEDS: FOLIC ACID 1 MG TABLET TUBE (08:44)
[2024-02-09] MEDS: SODIUM CHLORIDE 0.9% FLUSH 10 ML IV ×2 (08:45→21:16)
[2024-02-09] MEDS: THIAMINE 100 MG TABLET TUBE (08:45)
[2024-02-09] MEDS: METOPROLOL IR 25 MG TABLET PO (08:45)
[2024-02-09] MEDS: PANTOPRAZOLE 40 MG VIAL IV (08:45)
--- NOTE | 2024-02-09 10:56 | PM.PN.EICU ---
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-counter supply worker care: Yes Patient Location: ICU Provider location (State): Other participants/roles: RN Interval history: Had episode of agitation over night, resolved with Haldol, looks much better with family around , precedex at 0.02 Current Medications Current Medications Medications: Home Medications lisinopril 10 mg tablet 5 mg (1/2 x 10 mg) PO BID #180 tabs 11/01/22 [Rx Confirmed 01/25/24] spironolactone 25 mg tablet 25 mg PO DAILY #90 tabs 02/06/23 [Rx Confirmed 01/25/24] metoprolol succinate 50 mg tablet,extended release 24 hr 50 mg PO BID #180 tabs 08/10/23 [Rx Confirmed 01/25/24] apixaban 2.5 mg tablet (Eliquis) 2.5 mg PO BID #60 tabs 08/27/23 [Rx Confirmed 01/25/24] atorvastatin 80 mg tablet 80 mg PO BEDTIME #30 tabs 10/24/23 [Rx Confirmed 01/25/24] furosemide 20 mg tablet 20 mg PO BID #180 tabs 11/12/23 [Rx Confirmed 01/25/24] Visit Medications (administered) Generic Name Dose Route Start Last Admin Trade Name Freq PRN Reason Stop Dose Admin Albuterol/Ipratropium 3 ml 01/30/24 02:01 02/06/24 09:11 Albuterol/Ipratropium 3 Ml Ampul INH 3 ml RTQ4HR PRN Administration Shortness Of Breath Enoxaparin Sodium 60 mg 02/07/24 21:00 02/09/24 08:44 Enoxaparin 60 Mg/0.6 Ml Syringe SUBCUT 60 mg BID FRANKO Administration Fentanyl 25 mcg 01/30/24 13:02 02/05/24 17:59 Fentanyl 100 Mcg/2 Ml Inj IV 25 mcg Q1H PRN Administration Pain, Severe (7-10) Folic Acid 1 mg 02/09/24 09:00 02/09/24 08:44 Folic Acid 1 Mg Tablet TUBE 1 mg DAILY FRANKO Administration Haloperidol 5 mg 02/08/24 23:33 02/08/24 23:46 Haloperidol 5 Mg/Ml Vial IV 5 mg Q4HR PRN Administration Agitation Heparin Sodium (Porcine) 50 unit 02/07/24 21:00 02/09/24 08:45 Heparin Flush (Cl/Picc/Mid-Line) 50 Unit/5 Ml Syringe IV 50 unit BID FRANKO Administration dexmedeTOMIDine in 0.9 % NaCL 400 mcg in 100 mls @ 2.903 mls/hr 01/26/24 19:30 02/09/24 06:39 Precedex IV 0.2 mcg/kg/hr TITRATE FRANKO 2.903 mls/hr Titration Protocol 0.2 MCG/KG/HR Fluconazole 200 mg in 100 mls @ 100 mls/hr 01/31/24 11:00 02/08/24 11:20 Diflucan IV 02/13/24 11:59 100 mls/hr Q24H FRANKO Administration Dextrose 1,000 mls @ 84 mls/hr 02/07/24 17:30 02/09/24 06:14 Dextrose 5% Water IV 84 mls/hr CONT FRANKO Administration Loperamide HCl 2 mg 02/06/24 15:02 02/07/24 12:47 Loperamide 2 Mg Capsule PO 2 mg QID PRN Administration Diarrhea Metoprolol Tartrate 5 mg 02/03/24 10:56 02/09/24 00:16 Metoprolol Tartrate 5 Mg/5 Ml Inj IV 5 mg Q1HR PRN Administration heart rate over 120 Metoprolol Tartrate 25 mg 02/08/24 21:00 02/09/24 08:45 Metoprolol Ir 25 Mg Tablet PO 25 mg BID FRANOK Administration Ondansetron HCl 4 mg 01/24/24 22:11 02/06/24 22:28 Ondansetron 4 Mg/2 Ml Inj IV 4 mg Q6HR PRN Administration Nausea And Vomiting Pantoprazole Sodium 40 mg 01/30/24 09:00 02/09/24 08:45 Pantoprazole 40 Mg Vial IV 40 mg DAILY FRANKO Administration Polyethylene Glycol 17 gm 02/04/24 16:10 02/09/24 08:45 Polyethylene Glycol 3350 17 Gm Powd.Pack PO Not Given DAILY FRANKO Sennosides 8.6 mg 02/04/24 16:10 02/09/24 08:45 Sennosides 8.6 Mg Tablet PO Not Given DAILY FRANKO Sodium Chloride 10 ml 02/01/24 00:28 02/06/24 03:50 Sodium Chloride 0.9% Flush IV 10 ml PRN PRN Administration Flush Sodium Chloride 10 ml 02/01/24 09:00 02/09/24 08:45 Sodium Chloride 0.9% Flush IV 10 ml BID FRANKO Administration Thiamine HCl 100 mg 02/09/24 09:00 02/09/24 08:45 Thiamine 100 Mg Tablet TUBE 100 mg DAILY FRANKO Administration Objective Ventilator Parameters: Ventilator Settings FiO2 25 CPAP Pressure Amount 5 RT Vent Frequency 14 Ventilator Tidal Volume 400 Exhaled Vt/kg IBW 6 Positive End Expiratory 5 Pressure Ventilator Pressure Support 5 Inspiratory Phase Time 1.0 I:E Ratio 1:3.3 Patient Position HOB >= 30 degrees Labs 02/09/24 04:26 02/09/24 04:26 Labs: Laboratory Results - last 24 hr 02/09/24 04:26 WBC 10.2 RBC 2.54 L Hgb 7.8 L Hct 23.8 L MCV 93.4 MCH 30.8 MCHC 32.9 RDW 14.1 Plt Count 371 Neut % (Auto) 79.5 H Lymph % (Auto) 13.2 L [place] % (Auto) 6.3 Eos % (Auto) 0.4 L Baso % (Auto) 0.6 Neut # (Auto) 8200 H Lymph # (Auto) 1300 [place] # (Auto) 600 Eos # (Auto) 0 Baso # (Auto) 100 Sodium 133 L Potassium 3.5 Chloride 102 Carbon Dioxide 35 H BUN 18 Creatinine 0.82 Estimated GFR > 60 BUN/Creatinine Ratio 22.0 Glucose 143 H Calcium 8.2 L Total Bilirubin 0.4 AST 55 ALT 58 H Alkaline Phosphatase 278 H Total Protein 5.3 L Albumin 2.7 L Globulin 2.6 Albumin/Globulin Ratio 1.0 Exam Vital Signs (past 8 hours): - 02/09/24 03:00 02/09/24 03:00 02/09/24 03:30 Pulse Rate 80 78 Respiratory Rate 22 19 Blood Pressure 95/52 L Pulse Oximetry 98 100 Oxygen Delivery Method Oxygen Flow Rate 2 2 02/09/24 04:00 02/09/24 04:00 02/09/24 04:30 Pulse Rate 78 68 Respiratory Rate 21 19 Blood Pressure 89/52 L Pulse Oximetry 98 97 Oxygen Delivery Method Oxygen Flow Rate 2 2 02/09/24 05:00 02/09/24 05:00 02/09/24 05:00 Pulse Rate 69 Respiratory Rate 19 Blood Pressure 103/60 Pulse Oximetry 98 Oxygen Delivery Method Nasal Cannula Oxygen Flow Rate 02/09/24 05:30 02/09/24 06:00 02/09/24 06:00 Pulse Rate 80 63 Respiratory Rate 19 20 Blood Pressure 88/53 L Pulse Oximetry 100 99 Oxygen Delivery Method Oxygen Flow Rate 02/09/24 06:30 02/09/24 07:00 02/09/24 07:00 Pulse Rate 81 77 Respiratory Rate 18 19 Blood Pressure 96/53 L Pulse Oximetry 99 100 Oxygen Delivery Method Oxygen Flow Rate 02/09/24 07:30 02/09/24 08:00 02/09/24 08:00 Pulse Rate 92 H 93 H Respiratory Rate 23 24 Blood Pressure 103/58 L Pulse Oximetry 99 98 Oxygen Delivery Method Oxygen Flow Rate 02/09/24 08:30 02/09/24 09:00 02/09/24 09:00 Pulse Rate 81 93 H Respiratory Rate 20 24 Blood Pressure 108/55 L Pulse Oximetry 100 100 Oxygen Delivery Method Oxygen Flow Rate 02/09/24 09:30 02/09/24 10:00 02/09/24 10:00 Pulse Rate 94 H 79 Respiratory Rate 28 H 22 Blood Pressure 117/56 L Pulse Oximetry 100 99 Oxygen Delivery Method Oxygen Flow Rate 02/09/24 10:30 Pulse Rate 87 Respiratory Rate 27 H Blood Pressure Pulse Oximetry 87 L Oxygen Delivery Method Oxygen Flow Rate Fraction of Inspired Oxygen 24 SaO2/FiO2 Ratio 404 Oxygen Delivery Method Nasal Cannula Oxygen Flow Rate 2 Quality TeleICU VTE Deep Vein Thrombosis/Pulmonary Embolism Present on Admission: No Assessment & Plan Assessment and plan (1) Aspiration pneumonia: Problem details: on irina archer Qualifiers: Aspiration pneumonia type: unspecified Laterality: bilateral Status: Acute Plan Problem details: Bilateral moderate effusions most likely reflecting volume overload in patient with poor underlying health and CHF. Status: Acute (2) Heart failure with reduced ejection fraction: Problem details: As above, increase diuresis. 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 - Alcohol dependence with other alcohol-induced disorder Status: Acute (5) Metabolic encephalopathy: Status: Acute (6) Atrial fibrillation: Qualifiers: Atrial fibrillation type: paroxysmal Qualified Code(s): I48.0 - Paroxysmal atrial fibrillation Status: Chronic Assessment & Plan narrative: a/p afebrile, HD stable mental status improving, comfortable NEURO: -neurochecks/seizure precautions -mental status much improved -[facility] protocol -minimize sedatives -thiamine/folate -Wean off precedex, seroquel as needed ( watch QTc), environmental orientation, adjust for hours protection RESP: # Acute hypoxemic respiratory failure improved, extubated now on NC 2 L -abx -check final cxs -dc lasix, c02 rising CVS: -rate controlled -continue lopressor -full ac per primar yteam # CHF - IV lasix 40 mg x 1 today and do as needed- - trend bmp - Stop D5W : -- monitor ins/outs -replace ly flora prn ID: # Aspiration PNA -abx ENDO: -- Goal BS 140- 180 FEN - tolerating TF at goal MSK- has left humeral head fracture- POA, in sling. will need MRI to r/o rotator cuff tear, f/u ortho gi/dvt ppx please call eICu if condition changes total cct 35 min
[2024-02-09] MEDS: FUROSEMIDE 40 MG/4 ML VIAL IV (11:28)
[2024-02-09] MEDS: FLUCONAZOLE 200 MG/100 ML PIGGYBACK 100 MG IV (11:28)
--- NOTE | 2024-02-09 12:45 | PT.IPTN ---
Current Diagnoses Alcohol abuse, uncomplicated (01/24/24) Alcohol dependence with other alcohol-induced disorder (01/24/24) Metabolic encephalopathy (01/24/24) Paroxysmal atrial fibrillation (01/24/24) Unspecified systolic (congestive) heart failure (01/24/24) Pneumonitis due to inhalation of food and vomit (01/24/24) Pleural effusion, not elsewhere classified (01/24/24) Unspecified fracture of shaft of humerus, left arm, initial encounter for closed fracture (01/24/24) Physical Therapy Treatment Note M2 PT-IP Current Condition Start: 01/25/24 11:40 Freq: NEEDED Status: Active Protocol: Document 02/08/24 12:00 AB (Rec: 02/08/24 14:18 AB [id number]) Physical Therapy Current Condition Current Condition Evaluation Date 02/08/24 Treatment Diagnosis s/p fall; L shoulder fx; aspiration pneumonia; difficulty in walking Onset Date 01/24/24 M3 PT-IP Subjective Start: 01/25/24 11:40 Freq: NEEDED Status: Active Protocol: Document 02/09/24 13:34 TS (Rec: 02/09/24 13:41 TS [id number]) Subjective Physical Therapy Visit Type Type Treatment Note Visit Start Time 12:45 Visit Stop Time 13:15 Number of JEWEL INSPECTOR Visits 1 Physical Therapy Visit Comments Patient Comments Pt found resting in bed, is agreeable to OOB mobility. Therapy Pain Assessment Pain When Pain Assessed During Mobility Pain Present Pain Present Pain Reported M4 PT-IP Mobility and Gait Start: 01/25/24 11:40 Freq: NEEDED Status: Active Protocol: Document 02/09/24 13:34 TS (Rec: 02/09/24 13:41 TS [id number]) PT-Bed Mobility Assessment Rolling Type of Rolling Bilateral Level of Assist Maximal Assistance Supine to Sit Supine to Sit Total Assistance,1 Person Assistance,Head of Bed Elevated,Bedrails Sit to Supine Sit to Supine Total Assistance,2 Person Assistance,Bedrails PT-Transfer Assessment Comments Mobility Comments Pt found with BM in brief, nursing into assist. Bilateral rolling MaxA with max cues for handrails for cleaning of brief. Supine to sir Total assist x1 to EOB. Pt retroleans sitting EOB CGA/SBA , at times required ModA to stay upright. Sit to supine into bed total assist x2. Pt was left in bed, all needs met . Gait Assessment Comments Gait Comments unable PT-Balance Assessment Sitting Balance and Reactions Static Sitting Balance Ability Poor Dynamic Sitting Balance Ability Poor Standing Balance and Reactions Static Standing Balance Ability Poor Dynamic Standing Balance Ability Poor M5 PT-IP Objective Assessments Start: 01/25/24 11:40 Freq: NEEDED Status: Active Protocol: Document 02/08/24 12:00 AB (Rec: 02/08/24 14:18 AB [id number]) Orientation Orientation/Cognition Level of Alertness Alert Orientation Name Safety Awareness Decreased Safety Awareness Memory Description Short Term Impaired Comments with confusion Gross Range of Motion Lower Extremity ROM Impairments increase bilateral ankle tightness towards DF Strength Lower Extremity Strength Assessment Bilaterally Impaired Hip 2+/5 Knee 3-/5 Ankle 2/5 Muscle Tone Muscle Tone WNL Yes M6 PT-IP Treatment Start: 01/25/24 11:40 Freq: NEEDED Status: Active Protocol: Document 02/09/24 13:34 TS (Rec: 02/09/24 13:41 TS [id number]) Physical Therapy Treatment Education Education Provided Safety M7 PT-IP Assessment and Plan Start: 01/25/24 11:40 Freq: NEEDED Status: Active Protocol: Document 02/09/24 13:34 TS (Rec: 02/09/24 13:41 TS [id number]) PT Summary Assessment and Plan Potential Rehabilitation Potential Fair Summary Impairments Pain,ROM,Strength,Balance, Coordination,Sensation,Tone, Cognition,Bed Mobility, Transfers,Gait,Activity Tolerance Progress Towards Goals Slow Progress due to Pain,Slow Progress due to Medical Issues,Slow Progress due to Activity Tolerance Assessment Summary Markos is making slow progress with his mobility. He is total assist for all bed mobility. He demonstrates some strength to sit EOB for a short period of time with use of handrail but continues to lean posteriorly. He did not progress to standing this session due to weakness and poor balance. PT is recommending SNF at this time. Goals Bed Mobility Goal Minimal Assistance Transfer Goal Minimal Assistance Gait Goal Minimal Assistance,Donny Walker Gait Distance 25 Other Goals improve bed mobility, transfers,ambulation using LRAD ~ 150 ft mod I up/down 2 steps R rail ascending SBA Days to Meet Goals 10 Frequency of Treatment Frequency Of Treatment Once a Day Treatment Plan Physical Therapy Treatment Plan Bed Mobility Training,Transfer Training,Gait Training, Therapeutic Exercise,Balance Retraining,Discharge Planning, Hot or Cold Pack,Neuromuscular Re-ed,Coordination Retraining ,Manual Therapy Precautions Shoulder Precautions Sling Weight Bearing Status Weight Bearing Status Non-Weight Bearing Allowed Weight Bearing Amount (enter % LUE NWB or #) (%) Recommendations To Nursing Amount of Assist Needed Mechanical Lift Discharge Recommendations PT Discharge Recommendations SNF Rehab Transportation Needs at Discharge Wheelchair/Cabulance,Stretcher /Ambulance
--- NOTE | 2024-02-09 14:20 | CM.DPC ---
DCP Cont: Discussed patient during team rounds, patient is currently NPO, on tube feedings. Hospitalist has mentioned speaking to patient today one on one, since daughters have been at bedside and influencing patient in some decision making. Hospice has referral, they did call for an update. Goals of care discussions are ongoing, but patient is also able to participate since he has been extubated. P: DCP to continue to follow for planning. Patient is currently on tube feedings, now that he is extubated, continues to wax and wain. As noted, Ros, daughter, is the DPOA, wants all measures done at this point. Goal is home with hospice services. Shantal Michael, MARIBEL/Healthcare Science Specialist
--- NOTE | 2024-02-09 15:47 | PM.PN.1 ---
Subjective Subjective Interval history: Patient more awake and alert today. Speech is a bit stronger. Able to tell me he would not want to be intubated again. He is unsure as to want for continued NG feeding tube. He is much more clear, but occasionally gives inconsistent responses. Did seem to understand and clearly state he would not want intubation. Exam Vital Signs (past 8 hours): - 02/09/24 08:00 02/09/24 08:00 02/09/24 08:30 Pulse Rate 93 H 81 Respiratory Rate 24 20 Blood Pressure 103/58 L Pulse Oximetry 98 100 Oxygen Delivery Method Oxygen Flow Rate 02/09/24 09:00 02/09/24 09:00 02/09/24 09:00 Pulse Rate 93 H Respiratory Rate 24 Blood Pressure 108/55 L Pulse Oximetry 100 Oxygen Delivery Method Room Air Nasal Cannula Oxygen Flow Rate 02/09/24 09:30 02/09/24 10:00 02/09/24 10:00 Pulse Rate 94 H 79 Respiratory Rate 28 H 22 Blood Pressure 117/56 L Pulse Oximetry 100 99 Oxygen Delivery Method Oxygen Flow Rate 02/09/24 10:30 02/09/24 11:00 02/09/24 11:00 Pulse Rate 87 93 H Respiratory Rate 27 H 28 H Blood Pressure 124/58 L Pulse Oximetry 87 L 89 L Oxygen Delivery Method Oxygen Flow Rate 02/09/24 11:30 02/09/24 12:00 02/09/24 12:00 Pulse Rate 91 H 87 91 H Respiratory Rate 24 26 H 23 Blood Pressure 124/58 L Pulse Oximetry 87 L 97 97 Oxygen Delivery Method Oxygen Flow Rate 1 02/09/24 12:00 02/09/24 12:30 02/09/24 13:00 Pulse Rate 103 H 109 H Respiratory Rate 25 H 33 H Blood Pressure 130/60 Pulse Oximetry 97 96 Oxygen Delivery Method Oxygen Flow Rate 02/09/24 13:00 02/09/24 13:15 02/09/24 13:15 Pulse Rate 114 H Respiratory Rate 31 H Blood Pressure 136/62 Pulse Oximetry 96 Oxygen Delivery Method Nasal Cannula Oxygen Flow Rate 02/09/24 14:00 02/09/24 15:06 Pulse Rate 106 H 133 H Respiratory Rate 30 H 29 H Blood Pressure 170/88 H 134/82 Pulse Oximetry 99 94 Oxygen Delivery Method Oxygen Flow Rate 1 1 Fraction of Inspired Oxygen 24 SaO2/FiO2 Ratio 404 Oxygen Delivery Method Nasal Cannula Oxygen Flow Rate 1 Narrative Exam Narrative: Alert and oriented x2-3 NAD, NG tube in place Lungs clear heart regular Abdomen ND, NT Legs free of edema. Cachectic. Objective Labs 02/09/24 04:26 02/09/24 04:26 Labs: Laboratory Results - last 24 hr 02/09/24 04:26 WBC 10.2 RBC 2.54 L Hgb 7.8 L Hct 23.8 L MCV 93.4 MCH 30.8 MCHC 32.9 RDW 14.1 Plt Count 371 Neut % (Auto) 79.5 H Lymph % (Auto) 13.2 L [place] % (Auto) 6.3 Eos % (Auto) 0.4 L Baso % (Auto) 0.6 Neut # (Auto) 8200 H Lymph # (Auto) 1300 Evans # (Auto) 600 Eos # (Auto) 0 Baso # (Auto) 100 Sodium 133 L Potassium 3.5 Chloride 102 Carbon Dioxide 35 H BUN 18 Creatinine 0.82 Estimated GFR > 60 BUN/Creatinine Ratio 22.0 Glucose 143 H Calcium 8.2 L Total Bilirubin 0.4 AST 55 ALT 58 H Alkaline Phosphatase 278 H Total Protein 5.3 L Albumin 2.7 L Globulin 2.6 Albumin/Globulin Ratio 1.0 [facility] Medical History Gout COPD (chronic obstructive pulmonary disease) Peripheral neuropathy Retinal detachment Peripheral vascular disease Essential hypertension (11/01/17) Pure hypercholesterolemia (04/24/16) Systolic congestive heart failure (04/24/16) Atrial fibrillation (04/24/16) Arterial embolism of left leg Surgical History Anesthesia History of surgery History of eye surgery History of cataract removal with insertion of prosthetic lens Family History Father History of heart disease Sister Cancer Social History household members: none Smoking Status: Former smoker alcohol intake: current Assessment & Plan Assessment & Plan narrative: 1. Septic shock. Present on admission and now resolved. - New infiltrates on CXR 01/26/24. - intubated on 4/2 PM for worsening respiratory status / failure. CT shows pneumonia w/ bilateral pleural effusions. - Ceftriaxone 1 gm Q24h initially, changed to Zosyn. Leukocytosis now resolved. He has completed antibiotic course to this point. - added fluconazole for possible yobany infection with budding yeast and pseudohyphae on sputum culture. 400 mg dosing given initially, continue 200 mg daily for 14 days for presumed thrush and possible candidal pneumonia. Fungal culture from thoracentesis are negative. Cultures pending. The pleural fluid is culture negative at this point. -now extubated on 02/05 -BP okay off midodrine today. 2. Aspiration pneumonia, present on admission and improving. - has been treated. Continue CONCRETE FORM SETTER AND FINISHER evaluations as encephalopathy improves from alcohol withdrawal and sepsis. 3. Acute septic encephalopathy, present on admission and improving. 4. MAGALYS, present on admission and improving. 5. Acute hypoxic respiratory failure, likely aspiration pneumonia, Acute on chronic HFrEF with R pleural effusion. Present on admission and active. -echocardiogram without evidence of significant worsened cardiomyopathy. Ejection fraction is 45-55%. -able to extubate on 02/05 6. Severe Chronic Protein Calorie Malnutrition. Present on admission and active. r/t to decreased energy intake and increased protein needs with CHF as evidenced by severe muscle wasting (temporalis, interosseous) and severe subcutaneous fat loss (buccal and orbital fat pads), <75% of estimated energy requirements for >1 month, BMI 20.6 (underweight for age), and substance abuse. -Started TF on 01/28 and will continue. Goal tube feeds are 45 cc per hour, will see if he tolerates 20 cc with his small stomach. Watch phos levels closely, high risk for refeeding syndrome. -continue NG tube feeds until swallow test with CONCRETE FORM SETTER AND FINISHER, not passing yet and ice chips only 7. Severe alcohol withdrawal with delirium, Present on admission and improved. - Precedex drip, Phenobarbital increased dose and prn and Haldol. Does not respond well to Lorazepam. - Continue IV Thiamine and Folate. 8. Atrial Fibrillation, Persistent with RVR. Present on admission and RVR now resolved. - on lovenox now given no PO intake for anticoagulation. Held for thoracentesis 01/29 but back on. - difficulties with afib with RVR the last few days. Did receive amiodarone loading IV and now on po amio 200mg BID - have started metoprolol via OG Tube, rate still a bit high today will increase from 12.5 mg BID to 50 mg TID. 9. Acute on Chronic HFrEF, Present on admission and active. - Last LVEF was 30% via TTE in 2022. Now with EF of 45-55% 10. Ambulatory Dysfunction, Present on admission and active. 11. Ground Level Fall, Present on admission and active. 12. Lower Extremity Weakness with history of T6 Compression Fracture, Present on admission and active. His fall was likely secondary to alcohol intoxication though does have bilateral weakness with T6 compression fracture. He could not tolerate the planned MR of T spine to make sure no spinal pathology and the Shoulder MR plan was also deferred. - Treat alcohol and hypomagnesemia as noted below. - Given his lower extremity weakness and history of T6 compression fracture, tried to do a thoracic spine MRI to rule out acute issue, though he does not have other clinical signs of cord compression. 13. Hypomagnesemia, Present on admission and improved. - Replace as needed, monitor. 14. Left Humeral Head Fracture. Present on admission and active. Mildly displaced per x-ray. - Continue sling. Non-operative with outpatient management for now, discussed with orthopedics whom recommended MRI for this patient for further evaluation for possible rotator cuff injury. - PRN Hydrocodone and IV Dilaudid while sedated. - shoulder MRI deferred for now as noted above. 15. Essential Hypertension, not active. - holding home medications, resume only if hypertensive off of midodrine. 16. Tobacco use and dependence. Present on admission and active. - nicotine patch, family requests this be removed today. Placement -[facility] has reviewed and accepted him when he is ready. Likely several more days. Code Status: Full Code, surrogate is patient's daughter. Had GOC discussion on 02/06 and patient will think about DNR/DNI, but isn't sure yet. Will continue to readdress. Today he seemed at least to be DNI, still not sure about want for feeding access. DVT: on Eliquis normally, now on Lovenox BID 1mg / kg, held prior to thoracentesis temporarily. Dispo: Remains ICU for now. Now extubated as of 02/05. Still on precedex intermittently. I spent 30 minutes providing critical care management this patient. This excludes time spent in performing separately billed procedures. Quality VTE Deep Vein Thrombosis/Pulmonary Embolism Present on Admission: No
[2024-02-09] MEDS: METOPROLOL IR 25 MG TABLET 50 MG PO ×2 (16:54→21:15)
--- NOTE | 2024-02-09 18:38 | PC.NURSE ---
Confusion/Cardiac Pt. alert to self, daughters at bedside to reorient pt. and ensure that he does not pull on NGT or valdivia catheter. Precedex stopped approx. 0945, Seroquel scheduled for HS. Sat at edge of bed briefly with PT and 2-person support, pt. weak and unable to help hold self up. HR increased to AFib 120-140's after working with PT, given one dose of PRN IV Metoprolol 5mg, PO Metoprolol increased to 50 mg, HR decreased to 100's.
--- NOTE | 2024-02-09 19:39 | PM.ICURNDS ---
- :: This patient was seen via real time interactive two-way audiovisual telecommunication. Note: TERRE HAUTE TELEINTENSIVIST MULTIDISCIPLINARY ROUNDS NOTE Most recent labs, imaging studies, current treatment plan reviewed with the bedside team (RN). Patient is awkae, alert and oriented x 1 only, follows commands intermittently. Currently, off Precided gtt. On Seroquel. Hemodynamically stable. No acute issues or needs per RN . Discussed w/ Bedside RN and charge nurse. Josep Wu MD eICU, Critical Care Medicine
[2024-02-09] MEDS: QUETIAPINE 25 MG TABLET PO (21:16)
[2024-02-10] VITALS (50 sets, daily range): BP systolic 113–163; BP diastolic 56–90; PULSE 83–126; RESP 25–34; TEMP 36.4–37.1; O2SAT 88–100
[2024-02-10 04:41] LABS: Add Manual Diff / Slide Review NO; Basophils Absolute Auto 100 /uL (0-100); Basophils Percent Auto 0.9 % (0-2); Eosinophils Absolute Auto 100 /uL (0-450); Eosinophils Percent Auto 0.6 % (2-4); Hematocrit 26.7 % (41-53); Hemoglobin 8.9 g/dL (13.5-17.5); Lymphocytes Absolute Auto 2100 /uL (1100-4500); Lymphocytes Percent Auto 21.5 % (25-40); Mean Corpuscular HGB Conc 33.2 % (30-36); Mean Corpuscular Volume 93.5 fL (80-100); Monocytes Absolute Auto 800 /uL (0-900); Monocytes Percent Auto 7.8 % (3-14); Neutrophils Absolute Auto 6800 /uL (1500-7000); Neutrophils Percent Auto 69.2 % (50-75); Platelet Count 450 X10^3/uL (150-400); Red Blood Cell Count 2.86 X10^6/uL (4.5-5.9); Red Cell Distribution Width 14.5 % (11.6-14.8); White Blood Cell Count 9.8 X10^3/uL (4.5-11.0)
[2024-02-10 04:47] LABS: Alanine Aminotransferase 63 IU/L (<50); Albumin 3.1 g/dL (3.5-5.0); Albumin Globulin Ratio 1.1 (1.0-2.8); Alkaline Phosphatase 327 U/L (38-126); Aspartate Aminotransferase 56 IU/L (17-59); BUN Creatinine Ratio 18.8 (6-22); Bilirubin Total 0.5 mg/dL (0.2-1.3); Blood Urea Nitrogen 16 mg/dL (9-20); Calcium 8.6 mg/dL (8.4-10.2); Carbon Dioxide 37 mmol/L (22-32); Chloride 103 mmol/L (98-107); Estimated Glomerular Filt Rate > 60 mL/min (>60); Globulin 2.8 g/dL (1.7-4.1); Glucose 122 mg/dL (80-110); HEMOLYSIS < 15 (0-50); Sodium 139 mmol/L (137-145); Total Protein 5.9 g/dL (6.3-8.2)
[2024-02-10] MEDS: METOPROLOL TARTRATE 5 MG/5 ML INJ IV (06:55)
[2024-02-10] MEDS: PANTOPRAZOLE 40 MG VIAL IV (08:29)
[2024-02-10] MEDS: FOLIC ACID 1 MG TABLET TUBE (08:29)
[2024-02-10] MEDS: ENOXAPARIN 60 MG/0.6 ML SYRINGE SUBCUT ×2 (08:29→20:39)
[2024-02-10] MEDS: METOPROLOL IR 25 MG TABLET 50 MG PO ×3 (08:30→20:40)
[2024-02-10] MEDS: SODIUM CHLORIDE 0.9% FLUSH 10 ML IV ×2 (08:30→20:46)
[2024-02-10] MEDS: THIAMINE 100 MG TABLET TUBE (08:30)
--- NOTE | 2024-02-10 11:01 | PT.IPTN ---
Current Diagnoses Alcohol abuse, uncomplicated (01/24/24) Alcohol dependence with other alcohol-induced disorder (01/24/24) Metabolic encephalopathy (01/24/24) Paroxysmal atrial fibrillation (01/24/24) Unspecified systolic (congestive) heart failure (01/24/24) Pneumonitis due to inhalation of food and vomit (01/24/24) Pleural effusion, not elsewhere classified (01/24/24) Unspecified fracture of shaft of humerus, left arm, initial encounter for closed fracture (01/24/24) Physical Therapy Treatment Note M2 PT-IP Current Condition Start: 01/25/24 11:40 Freq: NEEDED Status: Active Protocol: Document 02/08/24 12:00 AB (Rec: 02/08/24 14:18 AB [id number]) Physical Therapy Current Condition Current Condition Evaluation Date 02/08/24 Treatment Diagnosis s/p fall; L shoulder fx; aspiration pneumonia; difficulty in walking Onset Date 01/24/24 M3 PT-IP Subjective Start: 01/25/24 11:40 Freq: NEEDED Status: Active Protocol: Document 02/10/24 10:38 MB (Rec: 02/10/24 11:00 MB [id number]) Subjective Physical Therapy Visit Type Type Treatment Note Visit Start Time 10:38 Visit Stop Time 10:52 Number of PROCUREMENT DIRECTOR Visits 0 Physical Therapy Visit Comments Patient Comments Pt with minimal attempted verbalizations and very difficult to understand d/t wet sounds and low vocal tone. Therapy Pain Assessment Pain When Pain Assessed During Mobility Pain Present Pain Present Pain Reported FLACC Pain Scale Face Frequent/constant frown M4 PT-IP Mobility and Gait Start: 01/25/24 11:40 Freq: NEEDED Status: Active Protocol: Document 02/10/24 10:38 MB (Rec: 02/10/24 11:00 MB [id number]) PT-Transfer Assessment Comments Mobility Comments Pt requires dependent assistance to scoot to the left in the bed: pt unable to assist in any way and PT moves limbs, trunk and shoulders M5 PT-IP Objective Assessments Start: 01/25/24 11:40 Freq: NEEDED Status: Active Protocol: Document 02/08/24 12:00 AB (Rec: 02/08/24 14:18 AB [id number]) Orientation Orientation/Cognition Level of Alertness Alert Orientation Name Safety Awareness Decreased Safety Awareness Memory Description Short Term Impaired Comments with confusion Gross Range of Motion Lower Extremity ROM Impairments increase bilateral ankle tightness towards DF Strength Lower Extremity Strength Assessment Bilaterally Impaired Hip 2+/5 Knee 3-/5 Ankle 2/5 Muscle Tone Muscle Tone WNL Yes M6 PT-IP Treatment Start: 01/25/24 11:40 Freq: NEEDED Status: Active Protocol: Document 02/10/24 10:38 MB (Rec: 02/10/24 11:00 MB [id number]) Physical Therapy Treatment Other Treatments Other Treatment Performed Attempted B APs and HS with assistance and pt is unable to tolerate, grimaces and resists HS. B PF contractures and clonic-type tone with attempted ankle ROM M7 PT-IP Assessment and Plan Start: 01/25/24 11:40 Freq: NEEDED Status: Active Protocol: Document 02/10/24 10:38 MB (Rec: 02/10/24 11:00 MB [id number]) PT Summary Assessment and Plan Potential Rehabilitation Potential Poor Summary Impairments Pain,ROM,Strength,Balance, Coordination,Sensation,Tone, Cognition,Bed Mobility, Transfers,Gait,Activity Tolerance Progress Towards Goals Slow Progress due to Pain,Slow Progress due to Medical Issues,Slow Progress due to Activity Tolerance Assessment Summary Markos is unable to participate with PT treatment today. He awakens to voice and attempts to verbalize a few times to answer questions but it is difficult to understand what he is attempting to say. Pt with B PF contractures and tone with attempted APs, softness in left ankle and it is positioned of the mattress. Resistance to B HS and dependent assistance to get better positioned in the bed. Nsg states that pt is more sleepy today after seroquel last night. Goals Bed Mobility Goal Minimal Assistance Transfer Goal Minimal Assistance Gait Goal Minimal Assistance,Donny Walker Gait Distance 25 Days to Meet Goals 10 Frequency of Treatment Frequency Of Treatment Once a Day Treatment Plan Physical Therapy Treatment Plan Bed Mobility Training,Transfer Training,Gait Training, Therapeutic Exercise,Balance Retraining,Discharge Planning, Hot or Cold Pack,Neuromuscular Re-ed,Coordination Retraining ,Manual Therapy Precautions Shoulder Precautions Sling Weight Bearing Status Weight Bearing Status Non-Weight Bearing Allowed Weight Bearing Amount (enter % LUE NWB or #) (%) Recommendations To Nursing Amount of Assist Needed Mechanical Lift Discharge Recommendations Other Discharge Recommendations SNF vs hospice Transportation Needs at Discharge Wheelchair/Cabulance,Stretcher /Ambulance
--- NOTE | 2024-02-10 11:43 | CM.DPNOTE ---
DCP Note ROOF DESIGNER reviewed EMR. Per hospitalist in morning rounds, plan pending repeat swallow eval, likely on Sunday. Per hospitalist, pt does not want to be intubated. pt mentation clearer but remains confused. Hospitalist reports at this point pt is not comfort care but the goals of care conversation will remain on going. ROOF DESIGNER spoke with Angela from [facility] ([phone]). Will keep him on their radar. Can do tube feeds just need equip. ROOF DESIGNER faxed them updated dietary note for pt's current feeding plan. Plan: pending swallow eval. SNF at [facility] vs [facility]. CM team will follow closely. JOSE RAMON Christiansen
[2024-02-10] MEDS: FLUCONAZOLE 200 MG/100 ML PIGGYBACK 100 MG IV (13:42)
--- NOTE | 2024-02-10 14:22 | P.PN_ITS ---
Subjective Subjective Interval history: Patient more somnolent. Awaiting SURETY BOND AGENT eval tomorrow. Exam Vital Signs (past 8 hours): - 02/10/24 06:30 02/10/24 07:00 02/10/24 07:00 Temperature Pulse Rate 126 H 110 H Respiratory Rate 28 H 28 H Blood Pressure 132/68 Pulse Oximetry 99 98 Oxygen Delivery Method 02/10/24 07:30 02/10/24 08:00 02/10/24 08:00 Temperature 98.7 F Pulse Rate 102 H 119 H Respiratory Rate 31 H 28 H Blood Pressure 141/72 H Pulse Oximetry 99 99 Oxygen Delivery Method 02/10/24 08:27 02/10/24 08:30 02/10/24 08:57 Temperature 98.8 F Pulse Rate 109 H Respiratory Rate 31 H Blood Pressure Pulse Oximetry 91 Oxygen Delivery Method Nasal Cannula 02/10/24 09:00 02/10/24 09:00 02/10/24 09:30 Temperature Pulse Rate 100 H 95 H Respiratory Rate 28 H 29 H Blood Pressure 131/66 Pulse Oximetry 97 97 Oxygen Delivery Method 02/10/24 10:00 02/10/24 10:00 02/10/24 10:30 Temperature Pulse Rate 89 99 H Respiratory Rate 31 H 30 H Blood Pressure 132/74 Pulse Oximetry 97 96 Oxygen Delivery Method 02/10/24 11:00 02/10/24 11:00 02/10/24 11:30 Temperature Pulse Rate 86 85 Respiratory Rate 31 H 29 H Blood Pressure 113/63 Pulse Oximetry 97 91 Oxygen Delivery Method 02/10/24 12:00 02/10/24 12:00 02/10/24 12:00 Temperature Pulse Rate 94 H Respiratory Rate 30 H Blood Pressure 117/58 L Pulse Oximetry 88 L Oxygen Delivery Method Nasal Cannula 02/10/24 12:30 02/10/24 13:00 02/10/24 13:00 Temperature Pulse Rate 97 H 97 H Respiratory Rate 27 H 32 H Blood Pressure 121/61 Pulse Oximetry 95 95 Oxygen Delivery Method 02/10/24 13:30 Temperature 98.6 F Pulse Rate 96 H Respiratory Rate 34 H Blood Pressure Pulse Oximetry 99 Oxygen Delivery Method Fraction of Inspired Oxygen 24 SaO2/FiO2 Ratio 404 Oxygen Delivery Method Nasal Cannula Oxygen Flow Rate 1 Narrative Exam Narrative: Alert and oriented x2-3 NAD, but appears uncomfortable NG tube in place Lungs clear heart regular Abdomen ND, NT Legs free of edema. Cachectic. Objective Labs 02/10/24 04:25 02/10/24 04:25 Labs: Laboratory Results - last 24 hr 02/10/24 04:25 WBC 9.8 RBC 2.86 L Hgb 8.9 L Hct 26.7 L MCV 93.5 MCH 31.0 MCHC 33.2 RDW 14.5 Plt Count 450 H Neut % (Auto) 69.2 Lymph % (Auto) 21.5 L [place] % (Auto) 7.8 Eos % (Auto) 0.6 L Baso % (Auto) 0.9 Neut # (Auto) 6800 Lymph # (Auto) 2100 [place] # (Auto) 800 Eos # (Auto) 100 Baso # (Auto) 100 Sodium 139 Potassium 4.0 Chloride 103 Carbon Dioxide 37 H BUN 16 Creatinine 0.85 Estimated GFR > 60 BUN/Creatinine Ratio 18.8 Glucose 122 H Calcium 8.6 Total Bilirubin 0.5 AST 56 ALT 63 H Alkaline Phosphatase 327 H Total Protein 5.9 L Albumin 3.1 L Globulin 2.8 Albumin/Globulin Ratio 1.1 PFSH Medical History Gout COPD (chronic obstructive pulmonary disease) Peripheral neuropathy Retinal detachment Peripheral vascular disease Essential hypertension (11/01/17) Pure hypercholesterolemia (04/24/16) Systolic congestive heart failure (04/24/16) Atrial fibrillation (04/24/16) Arterial embolism of left leg Surgical History Anesthesia History of surgery History of eye surgery History of cataract removal with insertion of prosthetic lens Family History Father History of heart disease Sister Cancer Social History household members: none Smoking Status: Former smoker alcohol intake: current Assessment & Plan Assessment & Plan narrative: 1. Septic shock. Present on admission and now resolved. - New infiltrates on CXR 01/26/24. - intubated on 4/2 PM for worsening respiratory status / failure. CT shows pneumonia w/ bilateral pleural effusions. - Ceftriaxone 1 gm Q24h initially, changed to Zosyn. Leukocytosis now resolved. He has completed antibiotic course to this point. - added fluconazole for possible yobany infection with budding yeast and pseudohyphae on sputum culture. 400 mg dosing given initially, continue 200 mg daily for 14 days for presumed thrush and possible candidal pneumonia. Fungal culture from thoracentesis are negative. The pleural fluid is culture negative at this point. -now extubated on 02/05 -BP okay off midodrine today. Shock has seemingly resolved at this point. 2. Aspiration pneumonia, present on admission and improving. - has been treated. Continue SURETY BOND AGENT evaluations as encephalopathy improves from alcohol withdrawal and sepsis. 3. Acute septic encephalopathy, present on admission and improving. 4. MAGALYS, present on admission and improving. 5. Acute hypoxic respiratory failure, likely aspiration pneumonia, Acute on chronic HFrEF with R pleural effusion. Present on admission and active. -echocardiogram without evidence of significant worsened cardiomyopathy. Ejection fraction is 45-55%. -able to extubate on 02/05 6. Severe Chronic Protein Calorie Malnutrition. Present on admission and active. r/t to decreased energy intake and increased protein needs with CHF as evidenced by severe muscle wasting (temporalis, interosseous) and severe subcutaneous fat loss (buccal and orbital fat pads), <75% of estimated energy requirements for >1 month, BMI 20.6 (underweight for age), and substance abuse. -Started TF on 01/28 and will continue. Goal tube feeds are 45 cc per hour, will see if he tolerates 20 cc with his small stomach. Watch phos levels closely, high risk for refeeding syndrome. -continue NG tube feeds until swallow test with SURETY BOND AGENT, not passing yet and ice chips only 7. Severe alcohol withdrawal with delirium, Present on admission and improved. - Precedex drip now off. Continues on Does not respond well to Lorazepam. - Continue IV Thiamine and Folate. 8. Atrial Fibrillation, Persistent with RVR. Present on admission and RVR now resolved. - on lovenox now given no PO intake for anticoagulation. Held for thoracentesis 01/29 but back on. - difficulties with afib with RVR the last few days. Did receive amiodarone loading IV and now on po amio 200mg BID - have started metoprolol via OG Tube, rate still a bit high today will increase from 12.5 mg BID to 50 mg TID. 9. Acute on Chronic HFrEF, Present on admission and active. - Last LVEF was 30% via TTE in 2022. Now with EF of 45-55% 10. Ambulatory Dysfunction, Present on admission and active. 11. Ground Level Fall, Present on admission and active. 12. Lower Extremity Weakness with history of T6 Compression Fracture, Present on admission and active. His fall was likely secondary to alcohol intoxication though does have bilateral weakness with T6 compression fracture. He could not tolerate the planned MR of T spine to make sure no spinal pathology and the Shoulder MR plan was also deferred. - Treat alcohol and hypomagnesemia as noted below. - Given his lower extremity weakness and history of T6 compression fracture, tried to do a thoracic spine MRI to rule out acute issue, though he does not have other clinical signs of cord compression. 13. Hypomagnesemia, Present on admission and improved. - Replace as needed, monitor. 14. Left Humeral Head Fracture. Present on admission and active. Mildly displaced per x-ray. - Continue sling. Non-operative with outpatient management for now, discussed with orthopedics whom recommended MRI for this patient for further evaluation for possible rotator cuff injury. - PRN Hydrocodone and IV Dilaudid while sedated. - shoulder MRI deferred for now as noted above. 15. Essential Hypertension, not active. - holding home medications, resume only if hypertensive off of midodrine. 16. Tobacco use and dependence. Present on admission and active. - nicotine patch, family requested this be removed. Placement -[email or web address] has reviewed and accepted him when he is ready. Likely several more days. Code Status: Full Code, surrogate is patient's daughter. Had GOC discussion on 02/06 and patient will think about DNR/DNI, but isn't sure yet. Will continue to readdress. Today he seemed at least to be DNI, still not sure about want for feeding access. Will reassess tomorrow with goals of care after repeat SURETY BOND AGENT evaluation. If unable to swallow will need to discuss hospice given his prior advance directives. DVT: on Eliquis normally, now on Lovenox BID 1mg / kg. Dispo: Floor care. Now extubated as of 02/05. No need for precedex recently. Quality VTE Deep Vein Thrombosis/Pulmonary Embolism Present on Admission: No
[2024-02-10] MEDS: QUETIAPINE 25 MG TABLET 12.5 MG PO (20:40)
[2024-02-11] VITALS (16 sets, daily range): BP systolic 115–144; BP diastolic 59–87; PULSE 78–122; RESP 16–33; TEMP 36.5–36.9; O2SAT 90–100
[2024-02-11] MEDS: METOPROLOL TARTRATE 5 MG/5 ML INJ IV (04:46)
[2024-02-11 04:47] LABS: Add Manual Diff / Slide Review NO; Basophils Absolute Auto 100 /uL (0-100); Basophils Percent Auto 1.1 % (0-2); Eosinophils Absolute Auto 100 /uL (0-450); Eosinophils Percent Auto 0.5 % (2-4); Hematocrit 28.5 % (41-53); Hemoglobin 9.2 g/dL (13.5-17.5); Lymphocytes Absolute Auto 2300 /uL (1100-4500); Lymphocytes Percent Auto 18.8 % (25-40); Mean Corpuscular HGB Conc 32.2 % (30-36); Mean Corpuscular Hemoglobin 30.4 PG (26-34); Mean Corpuscular Volume 94.3 fL (80-100); Monocytes Absolute Auto 700 /uL (0-900); Monocytes Percent Auto 6.1 % (3-14); Neutrophils Absolute Auto 9000 /uL (1500-7000); Neutrophils Percent Auto 73.5 % (50-75); Platelet Count 471 X10^3/uL (150-400); Red Blood Cell Count 3.03 X10^6/uL (4.5-5.9); Red Cell Distribution Width 14.6 % (11.6-14.8); White Blood Cell Count 12.2 X10^3/uL (4.5-11.0)
[2024-02-11 05:00] LABS: Alanine Aminotransferase 55 IU/L (<50); Albumin 2.9 g/dL (3.5-5.0); Albumin Globulin Ratio 0.9 (1.0-2.8); Alkaline Phosphatase 308 U/L (38-126); Aspartate Aminotransferase 43 IU/L (17-59); BUN Creatinine Ratio 20.9 (6-22); Bilirubin Total 0.5 mg/dL (0.2-1.3); Blood Urea Nitrogen 18 mg/dL (9-20); Calcium 8.6 mg/dL (8.4-10.2); Carbon Dioxide 36 mmol/L (22-32); Chloride 105 mmol/L (98-107); Estimated Glomerular Filt Rate > 60 mL/min (>60); Globulin 3.3 g/dL (1.7-4.1); Glucose 134 mg/dL (80-110); HEMOLYSIS < 15 (0-50); Magnesium 2.2 mg/dL (1.6-2.3); Phosphorous 3.5 mg/dL (2.3-3.7); Potassium 4.3 mmol/L (3.4-5.1); Sodium 140 mmol/L (137-145); Total Protein 6.2 g/dL (6.3-8.2)
--- NOTE | 2024-02-11 05:09 | PC.NURSE ---
0500 -@ 0330 reqiested order for pain med from night hospitalist, pt c/o pain in left shoulder. He suggested I give the fentanyl 25mcg. @ 0440 noted pt HR increasing, Metoprolol given for HR 170 - @ 0515 HR trending down and Pt states pain improved. O2 increased to 3L for sats 89%. Lung sound coarse and weak cough not clearing secretions, attempted to do oral tracheal suctioning without success as pt resisted. Tube feeding turned off until MD can evaluate in the AM
[2024-02-11] MEDS: fentaNYL 100 MCG/2 ML INJ 25 MCG IV (05:20)
[2024-02-11] MEDS: NALOXONE 0.4 MG/ML VIAL IV (06:50)
--- NOTE | 2024-02-11 06:51 | PC.NURSE ---
0630 tried to contact night hospitalist re drop in sats after giving fentanyl. Narcan given as urgent med while waiting for return call from
[2024-02-11] MEDS: ENOXAPARIN 60 MG/0.6 ML SYRINGE SUBCUT (09:00)
[2024-02-11] MEDS: PANTOPRAZOLE 40 MG VIAL IV (09:01)
[2024-02-11] MEDS: METOPROLOL IR 25 MG TABLET 50 MG PO ×3 (09:01→20:31)
[2024-02-11] MEDS: THIAMINE 100 MG TABLET TUBE (09:01)
[2024-02-11] MEDS: FOLIC ACID 1 MG TABLET TUBE (09:01)
[2024-02-11] MEDS: ACETAMINOPHEN 325 MG TABLET 650 MG PO (09:02)
[2024-02-11] MEDS: SODIUM CHLORIDE 0.9% FLUSH 10 ML IV ×2 (09:02→20:31)
--- NOTE | 2024-02-11 10:02 | PC.NURSE ---
Addendum entered by Tiesha Kelly R.N. 02/11/24 12:23: Per PRISON PSYCHIATRIST, RN stopped tube feeds due to aspiration risk. Original Note: In am, reported to provider that pt had difficulty clearing secretions overnight (per night RN) and night RN was concerned about aspiration. This RN assessed diminished lung sounds and pt had difficulty clearing secretions but refused oral suction. Also reported that WBC were up today 12.2 (9.8 yesterday). RN brought up a Cxray but provider gave no new orders. RN brought up goals of care and clarification on a previous provider report and provider wanted to wait for PRISON PSYCHIATRIST eval. RN called PRISON PSYCHIATRIST office and left a message to return RN's call. RN also asked provider if tylenol could be unheld and given through NGT. RN reported that according to night RN pt did not tolerate fentynl, provider ordered a different pain medication and also ordered narcan. In morning with med pass RN and PCT offered to turn patient to do full assessment and reposition. Pt allowed staff to boost in bed but refused turning and skin assessment on back. RN and PCT placed pillows to bridge pt.
--- NOTE | 2024-02-11 10:34 | PT-IP ANOTE ---
PT reviews chart, clears with nsg and checks on pt. Pt with two daughters nearby. Pt refuses mobility and PT.
[2024-02-11] MEDS: FLUCONAZOLE 200 MG/100 ML PIGGYBACK 100 MG IV (11:09)
--- NOTE | 2024-02-11 11:46 | ST.IPDYTX ---
Visit Care Team Role Provider Type Jeferson Shine DO Primary Care Provider Physician Specialty: Family Practice Address: [address] [place] [address] [address], [place], [address] Email: [email or web address] Powell MD Other Providers Physician Specialty: Pulmonology Address: [address] [place] [address], [address], [address] Email: [email or web address] Aime Marques MD Other Providers Physician Specialty: Pulmonology Address: [address] [place] [address] [address], [place], [address] Email: [email or web address] Cori Corona MD Other Providers Physician Specialty: Pulmonology Address: [address] [place] [address] [address], [address] Email: [email or web address] Bárbara Hitchcock DO Other Providers Physician Specialty: Pulmonology Address: [address], [address] Fax: Email: [email or web address] Brian Dominguez MD Emergency Provider Physician Specialty: Emergency Medicine Address: [address] [place] [address], [address] Email: [email or web address] Aime Sommers MD Admit Provider Physician Attending Provider Specialty: Internal Medicine Address: [address] [place] [address], [address] Fax: Email: [email or web address] Dysphagia Treatment [employer] Dysphagia Treatment Start: 02/08/24 11:00 Freq: Status: Active Protocol: Document 02/11/24 11:25 CG (Rec: 02/11/24 11:46 CG [id number]) Dysphagia Treatment Session Time Visit Start Time 10:50 Visit Stop Time 11:10 Total Visit Minutes 20 Setting Assessment Location Acute Care Patient Information Subjective Observations Pt was partially reclined in bed upon ST entry to the room, with two daughters present in the room. Pt had both eyes closed and did not respond immediately to verbal cue, though he was able to open his eyes briefly to repeated verbal and tactile cues. He did not sustain eye opening and quickly fell back asleep. Over the past day, pt has begun refusing oral care and suctioning per nursing report. Additionally, pt has become less responsive and more somnolent. He has demonstrated decreasing ability to clear his secretions. Upon ST visit to the room, daughters report that he is now not clearing his secretions at all and is continuing to refuse oral care as well as most other interventions. Pt occasionally attempted to verbalize to voice not wanting oral care, and vocal quality presents as severely wet. Pt was largely unresponsive and not agreeable to interventions , though did appear agreeable to [employer] asking if he would tolerate having his lips wiped off. His verbal answers were barely audible but severely gurgly/wet, and eyes remained closed except for brief moments. He appeaed to attempt to nod yes and no paired with his verbalizations, though movement was very minimal. Treatment Treatment Activities Reviewed chart for updates on pt status from the weekend. Consulted with pt's nurse regarding current status and the ongoing discussion regarding plan of care. Attempted to initiate oral care and PO trials to determine swallow function. Provided caregiver/family education regarding why swallow trials are not appropriate at this time. Consulted with physician re current pt status and concerns , considerations for plan of care. The IDDSI Framework Protocol: IDDSI.1 Assessment Patient Response to Treatment Unable to Participate Rehab Potential Poor Assessment of Improvement Pt's status has deteriorated significantly since last assessment by this [employer]. He presents as severely wet and gurgly. Suspect that he may be aspirating his own secretions and/or aspirating refluxed tube feeds, despite HOB being elevated. Pt presents as severely weak. He appeared to attempt to cough while [employer] INFORMATION INTERNSHIP was in the room, but was unable to produce a productive cough. He is extremely somnolent, sleeping with his mouth open and dry. His oral status appears diminished with chapped lips and visible oral residue present on his palate, but he refuses oral care and suctioning. [employer] attempted to at least clean his lips and apply chapstick for comfort, but pt began refusing even this. Based on pt presentation, he is not safe for PO trials at this time. [employer] explained this to pt's daughters present in the room, who appeared to understand, though neither of the present daughters were pt's DPOA. Consulted with CLOTH HANDLER (Jess Reynoso) and hospitalist (Dr Nicole Shields) in care management office. Explained that pt does not currently appear safe for anything PO. Additionally, expressed concern that pt may be aspirating tube feeds. Given no improvement in swallow function since initial evaluation last week, [employer] recommends a goals of care discussion with the family unless there is a significant improvement in pt status. Recommendations Diet Order NPO Medication Recommendations Not Recommended by Mouth Aspiration Precautions Recommended Precautions Upright at 90 Degrees Treatment Plan Placement Recommendation after Discharge Home with Hospice,Palliative Care Appropriate for Continued Therapy No: unless significant change in status
[2024-02-11] MEDS: MORPHINE 10 MG/0.5 ML ORAL SYRINGE PO ×4 (13:03→20:30)
[2024-02-11] MEDS: SCOPOLAMINE 1 PATCH TOP (13:11)
--- NOTE | 2024-02-11 13:39 | P.PN_ITS ---
Subjective Subjective Interval history: Still continues to have very poor swallow with [facility]LEGE ATHLETE, difficulty even with managing secretions. Discussed with daughters at bedside, all are in agreement, including POA given patient's advanced care directive which states he would not want to receive futile treatments. At this point, the patient is also quite clear he would not want to be reintubated and would not want a feeding tube in his stomach. At this time given his prolonged inability to swallow I would have recommended we proceed with a gastric tube for feeds. And should he have been reintubated he would likely need a tracheostomy. Discussed this with family, and recommended that we proceed with comfort care and hospice given the patient's previously stated wishes and apparent current desires in discussions with him at bedside over the last few days, though it is not entirely clear he is completely and fully able to comprehend these discussions. Family and DPOA were in agreement to move forward with comfort measures at this time. At this time we will keep his NG tube primarily for medications, but stop labs and other interventions. With goal of patient getting home to his view, will keep feeds on for now. Can stop at any point. Exam Vital Signs (past 8 hours): - 02/11/24 06:00 02/11/24 06:00 02/11/24 06:14 Pulse Rate 103 H Respiratory Rate 26 H Blood Pressure 117/64 144/66 H Pulse Oximetry 93 Oxygen Delivery Method Oxygen Flow Rate Fraction of Inspired Oxygen 02/11/24 06:14 02/11/24 06:53 02/11/24 06:53 Pulse Rate 122 H 122 H Respiratory Rate 33 H 29 H Blood Pressure 126/83 Pulse Oximetry 90 L 95 Oxygen Delivery Method Oxygen Flow Rate 15 Fraction of Inspired Oxygen 02/11/24 07:00 02/11/24 07:00 02/11/24 07:00 Pulse Rate 108 H Respiratory Rate 29 H Blood Pressure 128/87 Pulse Oximetry 95 Oxygen Delivery Method Nasal Cannula Oxygen Flow Rate Fraction of Inspired Oxygen 02/11/24 07:01 02/11/24 07:01 02/11/24 07:30 Pulse Rate 105 H 111 H Respiratory Rate 32 H Blood Pressure Pulse Oximetry 100 97 Oxygen Delivery Method Nasal Cannula Nasal Cannula Oxygen Flow Rate 4 Fraction of Inspired Oxygen 36 02/11/24 08:00 02/11/24 08:00 02/11/24 08:34 Pulse Rate 101 H Respiratory Rate 25 H 16 Blood Pressure 123/74 Pulse Oximetry 100 Oxygen Delivery Method Oxygen Flow Rate Fraction of Inspired Oxygen 02/11/24 09:00 02/11/24 09:00 02/11/24 10:00 Pulse Rate 100 H 86 Respiratory Rate 27 H 24 Blood Pressure 129/79 Pulse Oximetry 98 97 Oxygen Delivery Method Oxygen Flow Rate Fraction of Inspired Oxygen 02/11/24 10:01 02/11/24 10:01 02/11/24 10:01 Pulse Rate 90 Respiratory Rate 27 H 27 H Blood Pressure 127/62 Pulse Oximetry 98 Oxygen Delivery Method Oxygen Flow Rate Fraction of Inspired Oxygen 02/11/24 11:00 02/11/24 11:00 02/11/24 11:50 Pulse Rate 78 88 Respiratory Rate 23 27 H Blood Pressure 115/59 L Pulse Oximetry 97 99 Oxygen Delivery Method Oxygen Flow Rate 2 Fraction of Inspired Oxygen 02/11/24 11:50 Pulse Rate Respiratory Rate Blood Pressure 117/80 Pulse Oximetry Oxygen Delivery Method Oxygen Flow Rate Fraction of Inspired Oxygen Fraction of Inspired Oxygen 36 SaO2/FiO2 Ratio 277 Oxygen Delivery Method Nasal Cannula Oxygen Flow Rate 2 Narrative Exam Narrative: Alert, unable to really participate today in discussions, somnolent, appears uncomfortable with NG tube in place. Lungs clear heart regular Abdomen ND, NT Legs free of edema. Cachectic. Objective Labs 02/11/24 04:30 02/11/24 04:30 Labs: Laboratory Results - last 24 hr 02/11/24 04:30 WBC 12.2 H RBC 3.03 L Hgb 9.2 L Hct 28.5 L MCV 94.3 MCH 30.4 MCHC 32.2 RDW 14.6 Plt Count 471 H Neut % (Auto) 73.5 Lymph % (Auto) 18.8 L Gallia % (Auto) 6.1 Eos % (Auto) 0.5 L Baso % (Auto) 1.1 Neut # (Auto) 9000 H Lymph # (Auto) 2300 Gallia # (Auto) 700 Eos # (Auto) 100 Baso # (Auto) 100 Sodium 140 Potassium 4.3 Chloride 105 Carbon Dioxide 36 H BUN 18 Creatinine 0.86 Estimated GFR > 60 BUN/Creatinine Ratio 20.9 Glucose 134 H Calcium 8.6 Phosphorus 3.5 D Magnesium 2.2 Total Bilirubin 0.5 AST 43 ALT 55 H Alkaline Phosphatase 308 H Total Protein 6.2 L Albumin 2.9 L Globulin 3.3 Albumin/Globulin Ratio 0.9 L [facility] Medical History Gout COPD (chronic obstructive pulmonary disease) Peripheral neuropathy Retinal detachment Peripheral vascular disease Essential hypertension (11/01/17) Pure hypercholesterolemia (04/24/16) Systolic congestive heart failure (04/24/16) Atrial fibrillation (04/24/16) Arterial embolism of left leg Surgical History Anesthesia History of surgery History of eye surgery History of cataract removal with insertion of prosthetic lens Family History Father History of heart disease Sister Cancer Social History household members: none Smoking Status: Former smoker alcohol intake: current Assessment & Plan Assessment & Plan narrative: 1. Septic shock. Present on admission and now resolved. - New infiltrates on CXR 01/26/24. - intubated on 42 PM for worsening respiratory status / failure. CT shows pneumonia w/ bilateral pleural effusions. - Ceftriaxone 1 gm Q24h initially, changed to Zosyn. Leukocytosis now resolved. He has completed antibiotic course to this point. - added fluconazole for possible yobany infection with budding yeast and pseudohyphae on sputum culture. 400 mg dosing given initially, continue 200 mg daily for 14 days for presumed thrush and possible candidal pneumonia. Fungal culture from thoracentesis are negative. The pleural fluid is culture negative at this point. He completed 12 days of fluconazole prior to cessation. -Patient was extubated 02/05. -BP okay off midodrine. Shock has seemingly resolved at this point. -Yesterday and today, patient has not been tolerating his own secretions either. Repeat [facility]LE[facility] ATHLETE eval consistent with this, did not attempt swallow. 2. Aspiration pneumonia, present on admission and improving. - has been treated with antibiotics but he is likely chronically aspirating. Continued [facility]LE[facility] A[facility]LETE evaluations but currently without improvement. Transitioned to comfort on 02/10 with plans for hospice. 3. Acute septic encephalopathy, present on admission 4. MAGALYS, present on admission and improved 5. Acute hypoxic respiratory failure, likely aspiration pneumonia, Acute on chronic HFrEF with R pleural effusion. Present on admission and active. -echocardiogram without evidence of significant worsened cardiomyopathy. Ejection fraction is 45-55%. -Extubated 02/05. Now DNR. 6. Severe Chronic Protein Calorie Malnutrition. Present on admission and active. r/t to decreased energy intake and increased protein needs with CHF as evidenced by severe muscle wasting (temporalis, interosseous) and severe subcutaneous fat loss (buccal and orbital fat pads), <75% of estimated energy requirements for >1 month, BMI 20.6 (underweight for age), and substance abuse. -Started TF on 01/28 and will continue. Goal tube feeds are 45 cc per hour, will see if he tolerates 20 cc with his small stomach. Watch phos levels closely, high risk for refeeding syndrome. -continue NG tube feeds until swallow test with COLLEGE ATHLETE, not passing yet and ice chips only 7. Severe alcohol withdrawal with delirium, Present on admission and improved. - Precedex drip now off. Has nightly seroquel, some haldol as well prn. Does not respond well to Lorazepam. - Continue Thiamine and Folate with feeding tube for now. 8. Atrial Fibrillation, Persistent with RVR. Present on admission and RVR now resolved. - on lovenox now given no PO intake for anticoagulation. Held for thoracentesis 01/29 but back on until 02/10 when comfort care, so will stop anticoagulation. - difficulties with afib with RVR. Did receive amiodarone loading IV and now on po amio 200mg BID. Will continue for comfort. - have started metoprolol via OG Tube, continues on 50 TID with improved control. Will continue for comfort to avoid RVR. - okay to stop tele on 02/10. 9. Acute on Chronic HFrEF, Present on admission and active. - Last LVEF was 30% via TTE in 2022. Now with EF of 45-55% 10. Ambulatory Dysfunction, Present on admission and active. 11. Ground Level Fall, Present on admission and active. 12. Lower Extremity Weakness with history of T6 Compression Fracture, Present on admission and active. His fall was likely secondary to alcohol intoxication though does have bilateral weakness with T6 compression fracture. He could not tolerate the planned MR of T spine to make sure no spinal pathology and the Shoulder MR plan was also deferred. - Treat alcohol and hypomagnesemia as noted below. - Given his lower extremity weakness and history of T6 compression fracture, tried to do a thoracic spine MRI to rule out acute issue, though he does not have other clinical signs of cord compression. 13. Hypomagnesemia, Present on admission and improved. - Replace as needed, monitor. 14. Left Humeral Head Fracture. Present on admission and active. Mildly displaced per x-ray. - Continue sling. Non-operative with outpatient management for now, discussed with orthopedics whom recommended MRI for this patient for further evaluation for possible rotator cuff injury. - PRN Hydrocodone and IV Dilaudid while sedated. - shoulder MRI deferred for now as noted above. 15. Essential Hypertension, not active. - holding home medications, resume only if hypertensive off of midodrine. 16. Tobacco use and dependence. Present on admission and active. - nicotine patch, family requested this be removed. Placement -[facility] has reviewed and accepted him when he is ready. Likely several more days. Code Status: DNR, comfort now after goals discussion today. DVT: hold lovenox now given comfort. Dispo: Floor care. Plan for home with hospice ideally. Discussed with case management and family today. I spent 20 minutes involved in the advanced care planning for this patient including discussions about goals of care, treatment course and possible outcomes as described above in the subjective portion of this note. In summary will make DNR and proceed with plan for comfort measures with plan for ideally home with hospice. Quality VTE Deep Vein Thrombosis/Pulmonary Embolism Present on Admission: No
--- NOTE | 2024-02-11 14:27 | OT.IPNOTE ---
Pt is now comfort care and therefore discharge from OT services.
--- NOTE | 2024-02-11 14:44 | CM.DPNOTE ---
Called Ambulance per Jess for 1230 transport for Sunday, 02/11 to his [address] [place], [place] [address]R[place]. Spoke to Lucy at Ambulance and she confirmed they could provide this transport at 1230, 02/11. Francia Mcmullen, [employer] Grocery [employer].
--- NOTE | 2024-02-11 14:46 | CM.DPNOTE ---
DCP note MELT HELPER reviewed EMR. Per MARSHMALLOW MACHINE OPERATOR/reyna nixon, rec NPO/Home with hospice/palliative care. Per hospitalist, after consultation with family, family preference is home with comfort care. Per Hospitalist, ARCHANA Sommer gave verbal approval via phone for pt to be comfort care. MELT HELPER spoke with Neeraj at [facility] multiple times throughout the day (p [phone]). Arranged for [facility] to open at 2pm in the home Sunday. Equip (bed, table, commode, oxygen) will be delivered in the morning on . MELT HELPER faxed ARCHANA ppwk to [facility] (F [phone]). MELT HELPER met with ARCHANA arce dtr Aruna and dtr Eddy in the room. Eager to dc pt home. Agreeable to dc home tomorrow with [facility]. Acknowledge potential for cost associated with BLS transport. Agreeable to BLS transport due to pt's inability to sit up safely in w/c. One dtr will be in the home for the equip one dtr will be here at the hospital until dc and then will follow BLS home. Dtrs report someone from family will be with pt constantly from dc until passing. CHRISTIANO Francia kindly agreed to arrange BLS transport home. Transport set up for 12:30pm to the home with [facility]. MELT HELPER completed transport form and placed in chart (signature needed). MELT HELPER updated dtr on transport time/equip. Both in agreement. MELT HELPER updated provider/RN. Provider in agreement with dc home tomorrow. MELT HELPER updated him that POLST needed and partially completed/in chart. Plan: DC tomorrow home with [facility]. Equip delivered in morning. Nurse to open in home at 2pm. BLS with [facility] at 1230pm. POLST needed. CM team will continue to follow closely. JOSE RAMON Christiansen
[2024-02-11] MEDS: QUETIAPINE 25 MG TABLET 12.5 MG PO (20:31)
[2024-02-12] MEDS: MORPHINE 10 MG/0.5 ML ORAL SYRINGE PO ×5 (02:02→12:45)
[2024-02-12 07:30] VITALS: PULSE 97; O2SAT 91
[2024-02-12 08:00] VITALS: PULSE 100; O2SAT 90
--- NOTE | 2024-02-12 08:39 | PT.IPTN ---
Current Diagnoses Alcohol abuse, uncomplicated (01/24/24) Alcohol dependence with other alcohol-induced disorder (01/24/24) Metabolic encephalopathy (01/24/24) Paroxysmal atrial fibrillation (01/24/24) Unspecified systolic (congestive) heart failure (01/24/24) Pneumonitis due to inhalation of food and vomit (01/24/24) Pleural effusion, not elsewhere classified (01/24/24) Unspecified fracture of shaft of humerus, left arm, initial encounter for closed fracture (01/24/24) Physical Therapy Treatment Note M2 PT-IP Current Condition Start: 01/25/24 11:40 Freq: NEEDED Status: Active Protocol: Document 02/08/24 12:00 AB (Rec: 02/08/24 14:18 AB [id number]) Physical Therapy Current Condition Current Condition Evaluation Date 02/08/24 Treatment Diagnosis s/p fall; L shoulder fx; aspiration pneumonia; difficulty in walking Onset Date 01/24/24 M3 PT-IP Subjective Start: 01/25/24 11:40 Freq: NEEDED Status: Active Protocol: Document 02/12/24 08:39 AB (Rec: 02/12/24 08:39 AB [id number]) Subjective Physical Therapy Visit Type Type Administrative Note Notes Pt going hospice care. d/c PT . M7 PT-IP Assessment and Plan Start: 01/25/24 11:40 Freq: NEEDED Status: Active Protocol: Document 02/12/24 08:39 AB (Rec: 02/12/24 08:39 AB [id number]) PT Summary Assessment and Plan Frequency of Treatment Frequency Of Treatment Discharge
--- NOTE | 2024-02-12 08:40 | PM.DS.1 ---
History of Present Illness History of Present Illness Chief complaint: fall yesterday, unable to walk today Narrative: Markos Savage is an 78yo male with history of alcohol abuse, HTN, COPD, PVD with history of peripheral arterial embolism, Chronic HFrEF, Atrial Fibrillation on Eliquis who presents with generalized weakness and frequent falls. The patient lives by himself with his family checking on him frequently, and last night the patients daughter tried calling him around 6pm but he did not answer. Family went to check on him around 9pm and found him on the ground, too weak to get himself back up. He had a visible bruise on his face but was acting like his normal self. Family did note an empty whiskey bottle near him on the floor, as he reportedly drinks fairly heavily though the patient seems to minimize this. He declined transfer to the ED at that time, but today family noted he was still too weak to ambulate effectively and brought him to the ED for further evaluation. He denies any asymmetric neurologic weakness, headaches, vision changes, chest pain, dyspnea, cough. He indicates that he thinks he had too many [place] hard lemonades yesterday and slipped on his tile floor due to wearing socks only. He is not sure if he passed out or not. In the ED, he was normotensive but mildly tachycardic in atrial fibrillation. His labs showed a minimally elevated CK of 183 as well as a magnesium level of 1.4. His creatinine was 1.35 which was only minimally above his baseline. CT of his Brain and Cervical spine were negative for acute pathology. Hip x-rays showed no acute fracture, though a left shoulder x-ray showed a minimal fracture of the left humeral tuberosity and his arm was placed in a sling. He was given IV thiamine, fluids and folate, but due to his inability to ambulate he was admitted for further care. Of note, he reports that he has trouble lifting his legs up off the gurney, though he is not clear on whether that is acute or chronic in nature. Discharge Providers Provider Date of admission: 01/24/24 21:04 Discharge Date: 02/12/24 Primary care physician: Jeferson Shine DO Consults: 01/24/24 22:11 Consult to Occupational Therapy Evaluate & Treat Comment: Physician Instructions: Evaluate and treat Consult to Physical Therapy Evaluate & Treat Comment: Physician Instructions: Evaluate and Treat 01/25/24 13:39 Consult to Dietitian, Adult Routine Comment: Reason For Exam: malnutrition 01/27/24 08:22 Consult After Hours PICC Line RN Routine Comment: 01/30/24 00:43 Consult to Dietitian, Adult Routine Comment: Reason For Exam: Patient on Ventilator and NPO 01/30/24 17:05 Consult to Pulmonology Routine Comment: Consulting Provider: [facility] Reason for consultation: pleural effusion, respiratory failure Has provider been notified: Yes 02/06/24 14:28 Consult to Speech Therapy Evaluate & Treat Comment: Physician Instructions: Evaluate and treat 02/07/24 08:47 Consult to Physical Therapy Evaluate & Treat Comment: Physician Instructions: Evaluate and Treat 02/07/24 08:48 Consult to Occupational Therapy Evaluate & Treat Comment: Physician Instructions: Evaluate and treat 02/11/24 12:56 Consult to Hospice Referral Urgent Comment: Discharge provider: Matt Morales DO Summary Hospital Course Discharge Diagnosis: Converted to comfort care on 02/10 after patient failed swallow eval again, POA ok with hospice. 1. Septic shock. Present on admission and now resolved. - New infiltrates on CXR 01/26/24. - intubated on 4/2 PM for worsening respiratory status / failure. CT shows pneumonia w/ bilateral pleural effusions. - Ceftriaxone 1 gm Q24h initially, changed to Zosyn. Leukocytosis now resolved. He has completed antibiotic course to this point. - added fluconazole for possible yobany infection with budding yeast and pseudohyphae on sputum culture. 400 mg dosing given initially, continue 200 mg daily for 14 days for presumed thrush and possible candidal pneumonia. Fungal culture from thoracentesis are negative. The pleural fluid is culture negative at this point. He completed 12 days of fluconazole prior to cessation. -Patient was extubated 02/05. -BP okay off midodrine. Shock has seemingly resolved at this point. -Yesterday and today, patient has not been tolerating his own secretions either. Repeat BOILER ATTENDANT eval consistent with this, did not attempt swallow. 2. Aspiration pneumonia, present on admission and improving. - has been treated with antibiotics but he is likely chronically aspirating. Continued BOILER ATTENDANT evaluations but currently without improvement. Transitioned to comfort on 02/10 with plans for hospice. 3. Acute septic encephalopathy, present on admission 4. MAGALYS, present on admission and improved 5. Acute hypoxic respiratory failure, likely aspiration pneumonia, Acute on chronic HFrEF with R pleural effusion. Present on admission and active. -echocardiogram without evidence of significant worsened cardiomyopathy. Ejection fraction is 45-55%. -Extubated 02/05. Now DNR. 6. Severe Chronic Protein Calorie Malnutrition. Present on admission and active. r/t to decreased energy intake and increased protein needs with CHF as evidenced by severe muscle wasting (temporalis, interosseous) and severe subcutaneous fat loss (buccal and orbital fat pads), <75% of estimated energy requirements for >1 month, BMI 20.6 (underweight for age), and substance abuse. -Started TF on 01/28 and will continue. Goal tube feeds are 45 cc per hour, will see if he tolerates 20 cc with his small stomach. Watch phos levels closely, high risk for refeeding syndrome. -continue NG tube feeds until swallow test with BOILER ATTENDANT, not passing yet and ice chips only 7. Severe alcohol withdrawal with delirium, Present on admission and improved. - Precedex drip now off. Has nightly seroquel, some haldol as well prn. Does not respond well to Lorazepam. - Continue Thiamine and Folate with feeding tube for now. 8. Atrial Fibrillation, Persistent with RVR. Present on admission and RVR now resolved. - on lovenox now given no PO intake for anticoagulation. Held for thoracentesis 01/29 but back on until 02/10 when comfort care, so will stop anticoagulation. - difficulties with afib with RVR. Did receive amiodarone loading IV and now on po amio 200mg BID. Will continue for comfort. - have started metoprolol via OG Tube, continues on 50 TID with improved control. Will continue for comfort to avoid RVR. - okay to stop tele on 02/10. 9. Acute on Chronic HFrEF, Present on admission and active. - Last LVEF was 30% via TTE in 2022. Now with EF of 45-55% 10. Ambulatory Dysfunction, Present on admission and active. 11. Ground Level Fall, Present on admission and active. 12. Lower Extremity Weakness with history of T6 Compression Fracture, Present on admission and active. His fall was likely secondary to alcohol intoxication though does have bilateral weakness with T6 compression fracture. He could not tolerate the planned MR of T spine to make sure no spinal pathology and the Shoulder MR plan was also deferred. - Treat alcohol and hypomagnesemia as noted below. - Given his lower extremity weakness and history of T6 compression fracture, tried to do a thoracic spine MRI to rule out acute issue, though he does not have other clinical signs of cord compression. 13. Hypomagnesemia, Present on admission and improved. - Replace as needed, monitor. 14. Left Humeral Head Fracture. Present on admission and active. Mildly displaced per x-ray. - Continue sling. Non-operative with outpatient management for now, discussed with orthopedics whom recommended MRI for this patient for further evaluation for possible rotator cuff injury. - PRN Hydrocodone and IV Dilaudid while sedated. - shoulder MRI deferred for now as noted above. 15. Essential Hypertension, not active. - holding home medications, resume only if hypertensive off of midodrine. 16. Tobacco use and dependence. Present on admission and active. - nicotine patch, family requested this be removed. Hospital Course: Admitted for alcohol withdrawal and aspiration pneumonia. Worsened to the point of intubation and patient on the vent for a week and unable to come off due to secretions and mental status. Finally improved to the point where he was extubated. NG tube left in for nutrition and BOILER ATTENDANT eval. Patient had poor swallow and was unable to take NPO. He was alert and oriented and able to state he wanted to be DNI/DNR. He continued to fail swallow evals, so was switched to comfort care by POA and then discharged home on hospice. Exam Vital Signs (past 8 hours): - 02/12/24 05:26 Oxygen Delivery Method Nasal Cannula Oxygen Flow Rate 2 Fraction of Inspired Oxygen 36 SaO2/FiO2 Ratio 277 Oxygen Delivery Method Nasal Cannula Oxygen Flow Rate 2 Narrative Exam Narrative: Somnolent. Lungs clear heart regular Abdomen ND, NT Legs free of edema. Cachectic. Objective Labs 02/11/24 04:30 02/11/24 04:30 [facility] Medical History Gout COPD (chronic obstructive pulmonary disease) Peripheral neuropathy Retinal detachment Peripheral vascular disease Essential hypertension (11/01/17) Pure hypercholesterolemia (04/24/16) Systolic congestive heart failure (04/24/16) Atrial fibrillation (04/24/16) Arterial embolism of left leg Surgical History Anesthesia History of surgery History of eye surgery History of cataract removal with insertion of prosthetic lens Family History Father History of heart disease Sister Cancer Social History household members: none Smoking Status: Former smoker alcohol intake: current Discharge Plan Discharge Plan Patient Disposition: Hospice - Home Discharge orders & Medications Prescriptions: Discontinued spironolactone 25 mg tablet 25 mg PO DAILY Qty: 90 3RF metoprolol succinate 50 mg tablet extended release 24 hr 50 mg PO BID Qty: 180 0RF atorvastatin 80 mg tablet 80 mg PO BEDTIME Qty: 30 0RF Rx Instructions: PT WILL NEED TO BE SEEN BEFORE NEXT RENEWAL furosemide 20 mg tablet 20 mg PO BID Qty: 180 0RF Eliquis 2.5 mg tablet 2.5 mg PO BID Qty: 60 11RF lisinopril 10 mg tablet 5 mg PO BID Qty: 180 3RF Follow up/Referrals: Jeferson Shine DO [Primary Care Provider] - Visit Report/Discharge Packet Stand Alone Forms: Patient Portal/API, Stroke Signs & Symptoms Discharge Data Primary Care Provider: Jeferson Shine Quality VTE Deep Vein Thrombosis/Pulmonary Embolism Present on Admission: No
[2024-02-12 09:00] VITALS: PULSE 103; O2SAT 90
[2024-02-12] MEDS: FOLIC ACID 1 MG TABLET TUBE (09:12)
[2024-02-12] MEDS: THIAMINE 100 MG TABLET TUBE (09:12)
[2024-02-12] MEDS: METOPROLOL IR 25 MG TABLET 50 MG PO (09:12)
[2024-02-12] MEDS: PANTOPRAZOLE 40 MG VIAL IV (09:13)
[2024-02-12] MEDS: SODIUM CHLORIDE 0.9% FLUSH 10 ML IV (09:13)
--- NOTE | 2024-02-12 09:55 | PC.NURSE ---
Addendum entered by Tiesha Kelly R.N. 02/12/24 13:00: PICC removed; Dodd to remain in place following discharge for comfort care/hospice. Pt discharged with BLS, RN verified oxygen switched to BLS tank >50% full and dialed to appropriate L/min. Original Note: Pt tube feeds stopped yesterday due to GENERAL DOC recommendations/ tube feeds not restarted due to pt/family request. NG tube removed after am meds given per provider.
[2024-02-12 10:00] VITALS: PULSE 101; O2SAT 88
[2024-02-12 11:00] VITALS: PULSE 91; O2SAT 89
[2024-02-12 12:00] VITALS: PULSE 101; O2SAT 89
--- NOTE | 2024-02-12 13:06 | CM.DPNOTE ---
DCP Note RELIEF DRILLER reviewed EMR. Hospitalist cleared pt to dc home on hospice today. RELIEF DRILLER spoke with dtr Aruna at bedside- answered questions to best of ability, confirmed agreeable to plan. RELIEF DRILLER answered questions to best of ability. Aruna confirmed other dtr reported hospice equip was delivered. RELIEF DRILLER spoke with Neeraj from [facility]. Confirmed all was good with plan to open at 2pm in the home. RELIEF DRILLER efaxed signed dc sum to [facility] (f [phone]). RELIEF DRILLER updated RN on BLS p/u time, 12:30pm. RELIEF DRILLER made copy of POLST and placed in scanning folder. Plan: pt to dc home with [facility] at 12:30pm today. [facility] to open at 2pm. Dtrs to support at home. CM team will follow as needed. JOSE RAMON Christiansen
== END 2024-02-12 12:55 | disposition hospice, home (50) | DRG 870 ==
LOC: ED 20:48 → AC 01-25 08:03 → ICU 01-26 18:48
PROVIDERS: Anesthesiology Critical Care Medicine; Emergency Medicine; Family Medicine; Hospitalist; Internal Medicine; Internal Medicine Critical Care Medicine; Internal Medicine Pulmonary Disease; Student in an Organized Health Care Education/Training Program; Admitting Provider Hospitalist; Emergency Provider Family Medicine Addiction Medicine; PCP Family Medicine; Visit Provider Hospitalist
DX: A41.9 Sepsis, unspecified organism (principal); E43 Unspecified severe protein-calorie malnutrition; J69.0 Pneumonitis due to inhalation of food and vomit; J96.01 Acute respiratory failure with hypoxia; R65.21 Severe sepsis with septic shock; G93.41 Metabolic encephalopathy; I50.23 Acute on chronic systolic (congestive) heart failure; B37.1 Pulmonary candidiasis; F10.231 Alcohol dependence with withdrawal delirium; I48.19 Other persistent atrial fibrillation; N17.9 Acute kidney failure, unspecified; S42.252A Displaced fracture of greater tuberosity of left humerus, initial encounter for closed fracture; J91.8 Pleural effusion in other conditions classified elsewhere; Z66 Do not resuscitate; Z51.5 Encounter for palliative care; Z68.20 Body mass index [BMI] 20.0-20.9, adult; I11.0 Hypertensive heart disease with heart failure; M48.54XD Collapsed vertebra, not elsewhere classified, thoracic region, subsequent encounter for fracture with routine healing; E83.42 Hypomagnesemia; W18.30XA Fall on same level, unspecified, initial encounter; F17.200 Nicotine dependence, unspecified, uncomplicated; J44.9 Chronic obstructive pulmonary disease, unspecified; I73.9 Peripheral vascular disease, unspecified; Z86.79 Personal history of other diseases of the circulatory system; Z79.01 Long term (current) use of anticoagulants; R29.6 Repeated falls; Z88.8 Allergy status to other drugs, medicaments and biological substances; E78.00 Pure hypercholesterolemia, unspecified; Z82.49 Family history of ischemic heart disease and other diseases of the circulatory system
CPT/HCPCS: 36415; 36569; 36592; 36600; 70450; 70551; 71045; 71250; 72125; 73030; 73502; 74018; 74176; 76604; 80048; 80053; 80305; 80320; 81001; 82140; 82550; 82805; 82962; 83605; 83690; 83735; 83880; 84100; 84132; 84145; 84478; 84484; 85025; 85027; 85610; 87040; 87070; 87075; 87077; 87086; 87102; 87205; 87797; 89051; 92526; 92610; 93005; 93306; 93971; 94002; 94003; 94010; 94640; 94760; 94762; 94799; 96360; 96361; 97162; 97163; 97167; 97530; 97535; 99233; 99285; 99291; B4185; B4189; C9113; J0282; J0696; J1160; J1170; J1450; J1630; J1642; J1650; J1940; J2270; J2310; J2405; J2543; J2560; J2704; J3010; J3475; J3480; P9041; S0166